=== PATIENT | female | born 1940 | race Caucasian/White ===

== ENCOUNTER → 2017-09-15 10:28 | Outpatient (CLI) | payer MEDICARE, OTHER, SELFPAY ==
[2017-09-15 10:47] VITALS: BP 138/68; PULSE 53; RESP 18; TEMP 36.6; O2SAT 97
[2017-09-15 11:47] LABS: Absolute Lymphocyte Count 1.59 X10^3/ul (0.83-4.51); Absolute Neutrophil Count 5.4 X10^3/uL (2.0-7.7); Basophil% 0.4 % (0-1); Eosinophil# 0.13 X10^3/uL; Eosinophils% 1.7 % (0-5); Hematocrit 37.9 % (37-47); Hemoglobin 12.6 g/dl (12.0-15.0); Lymphocyte # 1.59 X10^3/ul (4.0); Lymphocyte % 20.5 % (19-41); Mean Corp Hgb Conc 33.2 g/gl (32-36); Mean Corpuscular Hgb 32.1 pg (27.0-32.0); Mean Corpuscular Volume 96.4 fL (81-99); Mean Platelet Vol. 9.4 fl (6.2-12.0); Monocyte# 0.63 X10^3/uL; Monocyte% 8.1 % (0-10); Neutrophil # 5.36 X10^3/uL (2.7-7.7); Neutrophil % 69.2 % (47-70); POSITIVE COUNT NO; POSITIVE DIFFERENTIAL NO; POSITIVE MORPHOLOGY NO; Platelet Count 253 K/mm3 (150-450); RBC Distribution Width CV 14.5 % (11.6-14.6); RBC Distribution Width SD 48.5 fl (35.1-43.9); Red Blood Count 3.93 M/mm3 (4.2-5.4); White Blood Count 7.8 K/mm3 (4.4-11.0)
[2017-09-15 11:48] LABS: Basophil# 0.03 X10^3/uL
[2017-09-15 12:21] LABS: ALB/GLOB Ratio 0.9 RATIO (0.9-2.4); AST(SGOT) 24 U/L (15-37); Alanine Aminotransfer ALT/SGPT 23 U/L (12-78); Albumin, Serum 3.1 g/dL (3.4-5.0); Alkaline Phosphatase 68 U/L (45-117); Anion Gap 7 (5-15); BUN 11 mg/dL (7-18); BUN/Creat Ratio 15.6 RATIO (10-20); Calcium,Total 8.7 mg/dL (8.5-10.1); Chloride 103 mmol/L (98-107); EST Glomerular Filtration Rate 86 mL/min (>60); Est Glom Filt Rate - Afr Amer 104 mL/min (>60); Globulin 3.4 g/dL (2.2-4.2); Glucose 79 mg/dL (70-110); Potassium 3.9 mmol/L (3.5-5.1); Protein, Total 6.5 g/dL (6.4-8.2); Sodium Level 138 mmol/L (136-145)
== END ==
PROVIDERS: Family Provider Internal Medicine; PCP Internal Medicine; Visit Provider Internal Medicine Rheumatology
DX: M06.9 Rheumatoid arthritis, unspecified (principal)
CPT/HCPCS: 96365; 80053; 85025; A4216; J0129

== ENCOUNTER → 2017-11-20 12:30 | Outpatient (CLI) | payer MEDICARE, OTHER, SELFPAY ==
[2017-11-20 12:33] VITALS: BP 160/59; PULSE 55; RESP 16; TEMP 36.7; O2SAT 98; BMI 22.3
== END ==
PROVIDERS: Family Provider Internal Medicine; PCP Internal Medicine; Visit Provider Internal Medicine Rheumatology
DX: M06.9 Rheumatoid arthritis, unspecified (principal)
CPT/HCPCS: 96365; J7050; A4216; J0129

== ENCOUNTER → 2017-12-25 12:26 | Outpatient (CLI) | payer MEDICARE, OTHER, SELFPAY ==
[2017-08-14 12:36] VITALS: BP 148/68
[2017-11-20 12:33] VITALS: BP 160/59; BMI 22.3
[2017-12-25 12:43] VITALS: BP 145/68; PULSE 56; RESP 56; TEMP 36.9; O2SAT 98; BMI 21.9
[2017-12-25 12:58] LABS: Absolute Lymphocyte Count 2.42 X10^3/ul (0.83-4.51); Absolute Neutrophil Count 5.8 X10^3/uL (2.0-7.7); Basophil# 0.03 X10^3/uL; Basophil% 0.3 % (0-1); Eosinophil# 0.15 X10^3/uL; Eosinophils% 1.7 % (0-5); Hematocrit 38.8 % (37-47); Hemoglobin 12.7 g/dl (12.0-15.0); Lymphocyte # 2.42 X10^3/ul (4.0); Lymphocyte % 26.7 % (19-41); Mean Corp Hgb Conc 32.7 g/gl (32-36); Mean Corpuscular Hgb 31.4 pg (27.0-32.0); Mean Platelet Vol. 9.1 fl (6.2-12.0); Monocyte% 7.7 % (0-10); Neutrophil # 5.75 X10^3/uL (2.7-7.7); Neutrophil % 63.4 % (47-70); Platelet Count 264 K/mm3 (150-450); RBC Distribution Width SD 49.2 fl (35.1-43.9); Red Blood Count 4.04 M/mm3 (4.2-5.4); White Blood Count 9.1 K/mm3 (4.4-11.0)
[2017-12-25 13:02] LABS: POSITIVE COUNT NO; POSITIVE DIFFERENTIAL NO; POSITIVE MORPHOLOGY NO
[2017-12-25 13:31] LABS: ALB/GLOB Ratio 0.9 RATIO (0.9-2.4); AST(SGOT) 26 U/L (15-37); Alanine Aminotransfer ALT/SGPT 29 U/L (13-56); Albumin, Serum 3.2 g/dL (3.2-5.0); Alkaline Phosphatase 80 U/L (45-117); Anion Gap 8 (5-15); BUN 11 mg/dL (7-18); BUN/Creat Ratio 13.7 RATIO (10-20); Calcium,Total 8.6 mg/dL (8.5-10.1); Chloride 100 mmol/L (98-107); EST Glomerular Filtration Rate 74 mL/min (>60); Est Glom Filt Rate - Afr Amer 89 mL/min (>60); Estimated Creatinine Clearance 52.47 ml/min; Globulin 3.5 g/dL (2.2-4.2); Glucose 94 mg/dL (74-106); Potassium 4.1 mmol/L (3.5-5.1); Protein, Total 6.7 g/dL (6.4-8.2); Sodium Level 135 mmol/L (136-145)
== END ==
PROVIDERS: Family Provider Internal Medicine; PCP Internal Medicine; Visit Provider Internal Medicine Rheumatology
DX: M05.70 Rheumatoid arthritis with rheumatoid factor of unspecified site without organ or systems involvement (principal); Z79.899 Other long term (current) drug therapy; M17.0 Bilateral primary osteoarthritis of knee; K50.90 Crohn's disease, unspecified, without complications
CPT/HCPCS: 96365; 80053; 85025; J7050; A4216; J0129

== ENCOUNTER → 2018-01-29 12:13 | Outpatient (CLI) | payer MEDICARE, OTHER, SELFPAY ==
[2018-01-29 12:20] VITALS: BP 125/71; PULSE 58; RESP 16; TEMP 36.7; O2SAT 96; BMI 22.3
== END ==
PROVIDERS: Family Provider Internal Medicine; PCP Internal Medicine; Visit Provider Internal Medicine Rheumatology
DX: M06.9 Rheumatoid arthritis, unspecified (principal)
CPT/HCPCS: 96365; J7050; A4216; J0129

== ENCOUNTER → 2018-03-05 12:18 | Outpatient (CLI) | payer MEDICARE, OTHER, SELFPAY ==
[2018-03-05 12:21] VITALS: BP 139/67; PULSE 57; RESP 16; TEMP 36.4; O2SAT 97; BMI 22.3
== END ==
PROVIDERS: Family Provider Internal Medicine; PCP Internal Medicine; Visit Provider Internal Medicine Rheumatology
DX: M06.9 Rheumatoid arthritis, unspecified (principal)
CPT/HCPCS: 96365; J7050; A4216; J0129

== ENCOUNTER → 2018-04-09 12:19 | Outpatient (CLI) | payer MEDICARE, OTHER, SELFPAY ==
[2018-04-09 12:40] VITALS: BP 127/55; PULSE 55; RESP 16; TEMP 36.6; O2SAT 98
[2018-04-09 13:08] LABS: Absolute Lymphocyte Count 2.42 X10^3/ul (0.83-4.51); Absolute Neutrophil Count 4.9 X10^3/uL (2.0-7.7); Basophil# 0.02 X10^3/uL; Basophil% 0.2 % (0-1); Eosinophil# 0.13 X10^3/uL; Eosinophils% 1.6 % (0-5); Hematocrit 38.3 % (37-47); Hemoglobin 12.8 g/dl (12.0-15.0); Lymphocyte # 2.42 X10^3/ul (4.0); Mean Corp Hgb Conc 33.4 g/gl (32-36); Mean Corpuscular Hgb 31.9 pg (27.0-32.0); Mean Corpuscular Volume 95.5 fL (81-99); Mean Platelet Vol. 9.2 fl (6.2-12.0); Monocyte# 0.55 X10^3/uL; Monocyte% 6.8 % (0-10); Neutrophil # 4.94 X10^3/uL (2.7-7.7); Neutrophil % 61.2 % (47-70); Platelet Count 291 K/mm3 (150-450); RBC Distribution Width CV 13.9 % (11.6-14.6); Red Blood Count 4.01 M/mm3 (4.2-5.4); White Blood Count 8.1 K/mm3 (4.4-11.0)
[2018-04-09 13:09] LABS: POSITIVE COUNT NO; POSITIVE DIFFERENTIAL NO; POSITIVE MORPHOLOGY NO
[2018-04-09 13:36] LABS: ALB/GLOB Ratio 0.9 RATIO (0.9-2.4); AST(SGOT) 21 U/L (15-37); Alanine Aminotransfer ALT/SGPT 24 U/L (13-56); Albumin, Serum 3.2 g/dL (3.2-5.0); Alkaline Phosphatase 66 U/L (45-117); Anion Gap 8 (5-15); BUN 12 mg/dL (7-18); BUN/Creat Ratio 13.6 RATIO (10-20); Calcium,Total 8.7 mg/dL (8.5-10.1); Chloride 98 mmol/L (98-107); Creatinine, Serum 0.88 mg/dL (0.55-1.02); EST Glomerular Filtration Rate 66 mL/min (>60); Est Glom Filt Rate - Afr Amer 80 mL/min (>60); Globulin 3.6 g/dL (2.2-4.2); Glucose 91 mg/dL (74-106); Potassium 3.8 mmol/L (3.5-5.1); Protein, Total 6.8 g/dL (6.4-8.2); Sodium Level 134 mmol/L (136-145)
== END ==
PROVIDERS: Family Provider Internal Medicine; PCP Internal Medicine; Visit Provider Internal Medicine Rheumatology
DX: M05.70 Rheumatoid arthritis with rheumatoid factor of unspecified site without organ or systems involvement (principal); Z79.899 Other long term (current) drug therapy; M17.0 Bilateral primary osteoarthritis of knee; K50.90 Crohn's disease, unspecified, without complications
CPT/HCPCS: 80053; 85025; 96413; J7050; J0129

== ENCOUNTER → 2018-05-11 10:31 | Outpatient (CLI) | payer MEDICARE, OTHER, SELFPAY ==
[2018-05-11 10:44] VITALS: BP 130/76; PULSE 58; RESP 16; TEMP 36.7; O2SAT 98; BMI 22.3
== END ==
PROVIDERS: Family Provider Internal Medicine; PCP Internal Medicine; Visit Provider Internal Medicine Rheumatology
DX: M06.9 Rheumatoid arthritis, unspecified (principal)
CPT/HCPCS: 96413; J7050; A4216; J0129

== ENCOUNTER → 2018-06-11 12:25 | Outpatient (CLI) | payer MEDICARE, OTHER, SELFPAY ==
[2018-06-11 12:46] VITALS: BP 131/64; PULSE 57; RESP 16; TEMP 36.6; O2SAT 97; BMI 22.3
== END ==
PROVIDERS: Family Provider Internal Medicine; PCP Internal Medicine; Visit Provider Internal Medicine Rheumatology
DX: M06.9 Rheumatoid arthritis, unspecified (principal)
CPT/HCPCS: 96413; J7050; A4216; J0129

== ENCOUNTER → 2018-07-16 12:22 | Outpatient (CLI) | payer MEDICARE, OTHER, SELFPAY ==
[2018-07-16 12:47] VITALS: BP 135/70; PULSE 57; RESP 18; TEMP 36.7; O2SAT 96; BMI 22.3
[2018-07-16 12:58] LABS: Absolute Lymphocyte Count 2.37 X10^3/ul (0.83-4.51); Absolute Neutrophil Count 5.8 X10^3/uL (2.0-7.7); Basophil# 0.02 X10^3/uL; Basophil% 0.2 % (0-1); Eosinophil# 0.17 X10^3/uL; Eosinophils% 1.9 % (0-5); Hematocrit 35.9 % (37-47); Hemoglobin 11.9 g/dl (12.0-15.0); Lymphocyte # 2.37 X10^3/ul (4.0); Lymphocyte % 26.8 % (19-41); Mean Corp Hgb Conc 33.1 g/gl (32-36); Mean Corpuscular Hgb 31.7 pg (27.0-32.0); Mean Corpuscular Volume 95.7 fL (81-99); Mean Platelet Vol. 8.9 fl (6.2-12.0); Monocyte# 0.43 X10^3/uL; Monocyte% 4.9 % (0-10); Neutrophil # 5.82 X10^3/uL (2.7-7.7); Platelet Count 313 K/mm3 (150-450); RBC Distribution Width CV 13.6 % (11.6-14.6); RBC Distribution Width SD 45.3 fl (35.1-43.9); Red Blood Count 3.75 M/mm3 (4.2-5.4); White Blood Count 8.8 K/mm3 (4.4-11.0)
[2018-07-16 13:01] LABS: POSITIVE COUNT NO; POSITIVE DIFFERENTIAL NO; POSITIVE MORPHOLOGY NO
[2018-07-16 13:33] LABS: ALB/GLOB Ratio 0.8 RATIO (0.9-2.4); AST(SGOT) 21 U/L (15-37); Alanine Aminotransfer ALT/SGPT 20 U/L (13-56); Alkaline Phosphatase 84 U/L (45-117); Anion Gap 6 (5-15); BUN 10 mg/dL (7-18); BUN/Creat Ratio 12.9 RATIO (10-20); Calcium,Total 8.5 mg/dL (8.5-10.1); Chloride 99 mmol/L (98-107); Creatinine, Serum 0.78 mg/dL (0.55-1.02); EST Glomerular Filtration Rate 77 mL/min (>60); Est Glom Filt Rate - Afr Amer 93 mL/min (>60); Estimated Creatinine Clearance 41.33 ml/min; Globulin 3.6 g/dL (2.2-4.2); Glucose 133 mg/dL (74-106); Potassium 4.1 mmol/L (3.5-5.1); Protein, Total 6.6 g/dL (6.4-8.2); Sodium Level 133 mmol/L (136-145)
== END ==
PROVIDERS: Internal Medicine Rheumatology; Family Provider Internal Medicine; PCP Internal Medicine; Visit Provider Internal Medicine
DX: M05.70 Rheumatoid arthritis with rheumatoid factor of unspecified site without organ or systems involvement (principal); Z79.899 Other long term (current) drug therapy; M17.0 Bilateral primary osteoarthritis of knee; K50.90 Crohn's disease, unspecified, without complications
CPT/HCPCS: 80053; 85025; 96413; J7050; A4216; J0129

== ENCOUNTER → 2018-07-17 13:16 | Outpatient (CLI) | payer MEDICARE, OTHER, SELFPAY ==
--- NOTE | 2018-07-17 13:18 | RAD_ITS ---
STUDY: X-RAY - CERVICAL SPINE REASON FOR EXAM: Female, 78 years old. Neck pain one week TECHNIQUE: 3 view(s) of the cervical spine were obtained. COMPARISON: None FINDINGS: There are degenerative changes of the anterior atlantoaxial articulation. Normal odontoid process. There is straightening of the normal cervical lordosis. There is multi-level endplate spondylosis. There is multi-level degenerative disc disease with multilevel disc space narrowing. Normal visualized intervertebral neuroforamina. The soft tissue structures are unremarkable. RAD/Cerv Spine 2 or 3 Views IMPRESSION: Multilevel degenerative disc disease. No visualized evidence of acute loss of height or alignment. Electronically Signed: Nafisa Lovett MD at 16:03 EDT Tel , Service support ,
== END ==
PROVIDERS: Family Provider Internal Medicine; PCP Internal Medicine; Referring Provider Internal Medicine; Visit Provider Internal Medicine
DX: M54.12 Radiculopathy, cervical region (principal)
CPT/HCPCS: 72040

== ENCOUNTER 2018-07-23 13:49 | Outpatient (RCR) | payer MEDICARE, OTHER, SELFPAY ==
--- NOTE | 2018-07-23 16:21 | HP.PTEVAL_ITS ---
Patient's Visit Information TRES RAMIRES is a 78 year old F referred to Physical Therapy by Sade Matthews with a diagnosis of Neck pain. Date of Evaluation: 07/23/18 Physical Therapist: Lesli Andrews - Visit Plan Plan: D/C pt. to [facility]. - Subjective Subjective: Pt. was going to cancel because feeling better but radiographs showing OA and degenerative changes. Want to get some advice on exercises. Couple weeks ago woke up with stiff shoulder/neck R side then L then middle, felt like needed massage. Feeling better now. No pain currently. Within last week no pain, just a little discomfort between shoulder blades when woke up and continued throughout day; heat helped a little bit. Lasted about 5 days. Nothing aggrevates pain. No numbness/tingling. No troubles at home with ADL. No losses of balance. No RÍOS. No changes in vision or dizziness. Trouble rel axing and falling asleep, unrelated to neck. Not waking up due to pain. When had neck pain trouble rotating neck while driving but, no issue now. No activities cannot do. Driving no problem. No previous injury to neck or shoulders. RA, HTN, high cholesterol. Taking methotrexate and infusions every month for RA, folic acid, metropolo and altase. RA under control with medications. Looking for exercises to maintain strength. Very active, volunteering at [employer]. - Objective Gait: WFL. Posture: rounded shoulders, FHP, sits with increased trunk flexion. Dermatomes: UE intact bilat. Myotomes: UE 5/5 bilat. ROM: Cervical WFL; slight discomfort with cervical flex., shoulder, elbow, wrist WFL. Palpation: no abnormalities of neck/shoulder compared bilat. - Goals Goal 1:: Pt. will be I with HEP and progressions. Goal Time Frame: Goal met - Rehabilitation Potential Physical Therapy Diagnosis: Pt. presents with good mobility. Neck and shoulder muscular imbalance along with poor posture resulting in intermittent cervical pain. Rehabilitation Potential: Excellent - Anticipated Interventions Patient/Client Instruction: Educate patient on: Condition, Benefits of Fitness Program For the Purpose of:: To improve muscle performance and motor function, To prevent re-injury Therapeutic Exercise to Include: Strength training, Postural training For the Purpose of:: To improve muscle performance and motor function, To prevent re-injury TENS: Yes Cryotherapy (ice pack, ice massage): Yes Thermo therapy (hot pack): Yes Thank you for the opportunity to evaluate your patient. For Medicare and Medicare HMO plans, please review the plan of care and approve it. It will need to be FAXED BACK to us at [phone] for Medicare purposes. Please let me know if there are questions or concerns regarding this plan of care. Physician Signature: Date:
== END 2018-07-23 19:00 | disposition home or self-care (01) ==
LOC: PT 13:49
PROVIDERS: Family Provider Internal Medicine; PCP Internal Medicine; Referring Provider Internal Medicine; Visit Provider Internal Medicine
DX: M54.12 Radiculopathy, cervical region (principal); M54.2 Cervicalgia
CPT/HCPCS: 97110; 97161

== ENCOUNTER → 2018-08-20 12:42 | Outpatient (CLI) | payer MEDICARE, OTHER, SELFPAY ==
[2018-08-20 12:59] VITALS: BP 145/68; PULSE 61; RESP 16; TEMP 36.4; O2SAT 98
== END ==
PROVIDERS: Family Provider Internal Medicine; PCP Internal Medicine; Referring Provider Internal Medicine Rheumatology; Visit Provider Internal Medicine Rheumatology
DX: M06.9 Rheumatoid arthritis, unspecified (principal)
CPT/HCPCS: 96413; J7050; A4216; J0129

== ENCOUNTER → 2018-09-10 14:23 | Outpatient (CLI) | payer MEDICARE, OTHER, SELFPAY ==
[2018-07-16 12:47] VITALS: BMI 22.3
--- NOTE | 2018-09-10 14:27 | BI_ITS ---
MAMMOGRAPHY - BILATERAL SCREENING REASON FOR EXAM: Female, 78 years old. Routine annual screening examination. PERTINENT HISTORY: Non-contributory. TECHNIQUE: Digital bilateral breast leslie (3D mammographic acquisition) in the CC and MLO projections. 2-D mediolateral oblique (MLO) and craniocaudad (CC) views of both breasts were obtained. CAD: Full Field Digital Mammography with Computer Added Detection was performed. COMPARISON: Comparison is made with prior study July 24, 2015 and July 03, 2009. FINDINGS: Breast Composition: There are scattered areas of fibroglandular density. There are no dominant masses or suspicious calcifications. No other significant abnormalities are identified. There has been no significant change since the prior study. BI/SCREENING MAMM (CAD), BILAT IMPRESSION: Stable bilateral screening mammogram. Yearly follow-up mammogram recommended. (A) ASSESSMENT CATEGORY: BIRADS Category 1: Negative. A letter regarding these results will be sent to the patient by the facility within 30 days. Approximately 10% of breast cancers are not detected by mammography. A normal mammogram should not delay biopsy of a clinically suspicious abnormality. [id number] Electronically Signed: Bartolo Knight MD at 15:27 EST Tel [phone], Service support ,
--- NOTE | 2018-09-10 14:30 | BD_ITS ---
STUDY: DUAL ENERGY X-RAY ABSORPTIOMETRY / DXA REASON FOR EXAM: Female, 78 years old. The patient is postmenopausal. Loss of height. TECHNIQUE: Bone Mineral Density (BMD) measurements of lumbar spine and bilateral hips were obtained. COMPARISON: Comparison is made with prior examination dated May 05, 2012. FINDINGS: Lumbar Spine (L1-L4): g/cm2 (0.978) / T-score (-1.7) / Z-score (0.1) Findings are suggestive of osteopenia with a moderate fracture risk. Left Femur Total: g/cm2 (0.679) / T-score (-2.6) / Z-score (-0.8) Left Femoral Neck: g/cm2 (0.771) / T-score (-1.9) / Z-score (0.1) Right Femur Total: g/cm2 (0.680) / T-score (-2.6) / Z-score (-0.8) Right Femoral Neck: g/cm2 (0.802) / T-score (-1.7) / Z-score (0.3) The T-Scores on the most recent prior examination were: Lumbar Spine (L1-L4): There has been improvement of bone density since the previous examination. Left Femur Total: which represents a worsening of 10.7%. Right Femur Total: which represents a worsening of 7.9%. BD/Dexa Bone Density Study IMPRESSION: The patient is considered osteoporotic as outlined below according to World Kirby Organization (WHO) criteria with a high fracture risk. There has been worsening of bone density since the previous examination. Reference Information: The T-score is the number of standard deviations above or below the standard which is normal for young adults at their peak bone mineral density. The World Health Organization (WHO) interprets the T-scores as follows: Above -1 Normal bone density Between -1 and -2.5 Osteopenia Equal to / or below -2.5 Osteoporosis As a practical clinical guideline, osteopenia may be graded as follows: Mild -1 through -1.5 Moderate -1.6 through -2.0 Severe -2.1 through -2.4 The Z-score is the number of standard deviations above or below age-matched controls. A Z-score of less than -1.5 would be considered abnormal. References: 1. NIH Osteoporosis and Related Bone Diseases http://www.osteo.org 2. International Society for Clinical Densitometry http://www.iscd.org 3. National Osteoporosis Foundation http://www.nof.org Electronically Signed: Bartolo Knight MD at 15:56 EST Tel [phone], Service support ,
--- OUTSIDE RECORDS SUMMARY | 2018-11-05 19:57 | XMS RPT_ITS | Continuity of Care Document ---
:1940 Author Organization [facility] Address [address] [facility] [address] [place] [address] Phone Care Team Providers Name Role Phone Sade Lambert DO Unavailable [facility], [facility] Unavailable Dr. Michael Wesley Unavailable MARCIA Richardson Unavailable Unavailable long, isha Unavailable Unavailable Unavailable Unavailable Problems Name Dates Details Acne rosacea, papular type (L71.9, 695.3) Status: Active Benign essential hypertension (I10, 401.1) Status: Active BMI 22.0-22.9, adult (Z68.22, V85.1) Status: Active Breast cancer screening (Z12.39, V76.10) Status: Active Cervical radiculopathy (M54.12, 723.4) Status: Active Colon cancer screening (Renamed from Encounter for screening for malignant neoplasm of colon) (Z12.11, V76.51) Status: Active Colonoscopy Comments: 08-20-07 Status: Active Crohn's disease, unspecified, without complications (K50.90, 555.9) Status: Active Elevated blood protein (E88.09, 273.8) Status: Active Encounter for Medicare annual wellness exam (Z00.00, V70.0) Status: Active Encounter for screening mammogram for breast cancer (Renamed from Encounter for screening mammogram for malignant neoplasm of breast) (Z12.31, V76.12) Status: Active Hypercholesterolemia (E78.00, 272.0) Status: Active Hypertension (I10, 401.9) Status: Active Hysterectomy, Total Comments: Secondary to prolapsed bladder Status: Active Influenza vaccination declined (Renamed from Refused influenza vaccine) (Z28.21, V64.06) Status: Active Mitral valve prolapse (I34.1, 424.0) Comments: stable Status: Active Need for prophylactic vaccination and inoculation against influenza (Renamed from Need for immunization against influenza) (Z23, V04.81) Status: Active Non-smoker (Z78.9, V49.89) Status: Active Osteoporosis (M81.0, 733.00) Comments: managed by dr diaz Status: Active Postmenopausal (Renamed from Postmenopausal status) (Z78.0, V49.81) Status: Active Rheumatoid arthritis (M06.9, 714.0) Status: Active Rosacea (L71.9, 695.3) Comments: Acne Status: Active Screening for colon cancer (Z12.11, V76.51) Status: Active Unspecified Diagnosis Status: Active Vitamin D deficiency, unspecified (E55.9, 268.9) Status: Active Medications Name Dates Details Altace 10 MG Oral Capsule 1 Capsule BID for 90 days Quantity: 180 {Capsule} Refills: 3 Ordered:17-Jul-2018 Fallon Lambert DO, DO, Kathleen Start : 17-Jul-2018 Active Atorvastatin Calcium 10 MG Oral Tablet 1 (one) Tablet qd for 90 days Quantity: 90 {Tablet} Refills: 3 Ordered:17-Jul-2018 Fallon Lambert DO, DO, Kathleen Start : 17-Jul-2018 Active FOLIC ACID, 1MG (Oral Tablet) 1 Tablet QD for 0 days Quantity: 90 {Tablet} Refills: 3 Ordered:31-Mar-2008 Renita Richardson LPN Start : 31-Mar-2008 Active METHOTREXATE, 2.5MG (PO Tablet) 3 Q week for 0 days Refills: 0 Ordered:25-Apr-2011 Renita Richardson MetroNIDAZOLE 1 % External Gel apply topically Application apply to facial cheeks bid for 0 days Quantity: 15 {Gram} Refills: 3 Ordered:04-Aug-2018 Fallon Lambert DO, DO, Kathleen Start : 04-Aug-2018 Active MULTIVITAMIN (PO Liquid) for 0 days Refills: 0 Ordered:17-Jul-2018 Renita Richardson Toprol XL 100 MG Oral Tablet Extended Release 24 Hour 1 Tablet ER 24HR QD for 90 days Quantity: 90 {Tablet} Refills: 3 Ordered:17-Jul-2018 Fallon Lambert DO, DO, Kathleen Start : 17-Jul-2018 Active ANUCORT-HC, 25MG (Rectal Suppository) 1 Suppository QD for 0 days Refills: 0 Ordered:15-Sep-2006 Renita Richardson LPN Start : 15-Sep-2006 End : 26-May-2009 Inactive ASPIRIN LOW DOSE, 81MG (Oral Tablet) 1 QD for 0 days Refills: 0 Ordered:25-Apr-2011 Renita Richardson LPN End : 25-Apr-2011 Inactive Doxycycline Hyclate 100 MG Oral Tablet 1 (one) Tablet bid for 10days then qd for 30 days then qd prn for 0 days Quantity: 94 {Tablet} Refills: 2 Ordered:04-Jun-2017 Renita Richardson LPN Start : 07-Jun-2016 End : 04-Jun-2017 Inactive Doxycycline Hyclate 100 MG Oral Tablet 1 (one) Tablet bid for 10days then qd for 30 days then qd prn for 0 days Quantity: 60 {Tablet} Refills: 0 Ordered:04-Jun-2017 Renita Richardson LPN Start : 07-Jun-2016 End : 04-Jun-2017 Inactive ENTOCORT EC, 3MG (Oral Capsule Extended Release 24 Hour) 3 (three) Tablet(s) qd for 30 days Refills: 0 Ordered:07-Aug-2011 Fallon Lambert DO, DO, Kathleen Start : 25-Apr-2011 End : 25-May-2011 Inactive HUMIRA, 40MG/0.8ML (Subcutaneous Kit) Not sure Not sure for 0 days Refills: 0 Ordered:31-Mar-2008 Renita Richardson LPN End : 31-Mar-2008 Inactive Niacin ER 500 MG Oral Tablet Extended Release 1 (one) Tablet ER qd for 30 days Quantity: 30 {Tablet} Refills: 5 Ordered:04-Jun-2017 Renita Richardson LPN Start : 10-Jul-2016 End : 04-Jun-2017 Inactive NIASPAN, 500MG (Oral Tablet Extended Release) 1 (one) Tablet ER QHS / HS for 0 days Quantity: 90 {Tablet_ER} Refills: 3 Ordered:27-Oct-2014 Renita Richardson LPN Start : 21-Apr-2014 End : 27-Oct-2014 Inactive ORENCIA, 250MG (Intravenous Solution Reconstituted) 1 For Solution q 4 weeks for 1 days Refills: 0 Ordered:29-Mar-2013 Fallon Lambert DO, DO, Kathleen Start : 29-Mar-2013 End : 30-Mar-2013 Inactive Oscal 500/200 D-3 500-200 MG-UNIT Oral Tablet 1 BID for 0 days Refills: 0 Ordered:17-Jul-2018 Renita Richardson LPN End : 17-Jul-2018 Inactive PREMARIN, 0.625MG/GM (Vaginal Cream) Not sure Cream Not sure for 0 days Refills: 0 Ordered:25-Apr-2011 Renita Richardson LPN Start : 15-Sep-2006 End : 25-Apr-2011 Inactive REMICADE, 100MG (Intravenous Solution Reconstituted) EVERY 5 WEEKS for 0 days Refills: 0 Ordered:26-May-2009 Renita Richardson LPN End : 26-May-2009 Inactive Simvastatin 10 MG Oral Tablet 1 (one) Tablet daily for 30 days Quantity: 30 {Tablet} Refills: 5 Ordered:04-Jun-2017 Renita Richardson LPN Start : 10-Jul-2016 End : 04-Jun-2017 Inactive VITAMIN C, 500MG (Oral Tablet) 1 QD for 0 days Refills: 0 Ordered:26-May-2009 Renita Richardson LPN End : 26-May-2009 Inactive VITAMIN E, 200UNIT (Oral Capsule) 2 QD for 0 days Refills: 0 Ordered:26-May-2009 Renita Richardson LPN End : 26-May-2009 Inactive CLONIDINE HCL, 0.1MG (Oral Tablet) 1 Tablet QD for 0 days Refills: 0 Ordered:03-Oct-2006 Fallon Lambert DO, DO, Kathleen Start : 15-Sep-2006 End : 03-Oct-2006 Discontinued Comments:SAW NO DIFFERENCE FOSAMAX, 70MG (Oral Tablet) 1 Tablet Q Week for 0 days Quantity: 12 {Tablet} Refills: 3 Ordered:29-Mar-2013 Fallon Lambert DO, DO, Kathleen Start : 29-Mar-2013 End : 29-Mar-2013 Discontinued Comments:pt has been on for years HYDROCHLOROTHIAZIDE, 25MG (Oral Tablet) 1 (one) Tablet Daily for 0 days Refills: 0 Ordered:03-Oct-2006 Fallon Lambert DO, DO, Kathleen Start : 03-Oct-2006 End : 03-Oct-2006 Discontinued Comments:SAW NO DIFFERENCE IN BP LIPITOR, 10MG (Oral Tablet) 1/2 Tablet QD for 0 days Refills: 0 Ordered:31-Mar-2008 Fallon Lambert DO, DO, Kathleen Start : 15-Sep-2006 End : 31-Mar-2008 Discontinued Allergies and Adverse Reactions Name Dates Details No Known Allergies (Allergy) Onset: 07-Jun-2015 Status: Active No Known Drug Allergies (Allergy) Status: Active Past Medical History Name Dates Details Screening for malignant neoplasm of cervix (Z12.4, V76.2) Status: Inactive as of 29-Mar-2013 Well woman exam (Z01.419, V72.31) Status: Inactive as of 29-Mar-2009 Procedures Procedure Dates Details TDAP VACCINE >7 IM (47137) Date: 07-Jun-2015 Completed 07-Jun-2015 Comments: GIVEN 06/07/2015 , DELL Date Value Details 23-Jul-2018 Inital Evaluation (1) - PT Result: Comments: See Note; NOTES: [facility] [address] [place] [address] [address] [place], [place] [address] Fax REHABILITATION SERVICES INITIAL EVALUATION MR#: [id number] Acct: [id number] Name: TRES GONZALEZ Rep #: [id number] : 1940 78 From: Lesli Andrews DPT Referring DrStuart: Sade Lambert DO Status: REG RCR Insurance: MEDICARE PART A B [facility] Patient's Visit Information TRES GONZALEZ is a 78 year old F referred to Physical Therapy by Sade Lambert with a diagnosis of Neck pain. Date of Evaluation: 07/23/18 Physical Therapist: Lesli Andrews - Visit Plan Plan: D/C pt. to I HEP. - Subjective Subjective: Pt. was going to cancel because feeling better but radiographs showing OA and degenerative changes. Wa nt to get some advice on exercises. Couple weeks ago woke up with stiff shoulder/neck R side then L then middle, felt like needed massage. Feeling better now. No pain currently. Within last week no pain , just a little discomfort between shoulder blades when woke up and continued throughout day; heat helped a little bit. Lasted about 5 days. Nothing aggrevates pain. No numbness/tingling. No troubles at home with ADL. No losses of balance. No RÍOS. No changes in vision or dizziness. Trouble relaxing and falling asleep, unrelated to neck. Not waking up due to pain. When had neck pain trouble rotating nec k while driving but, no issue now. No activities cannot do. Driving no problem. No previous injury to neck or shoulders. RA, HTN, high cholesterol. Taking methotrexate and infusions every month for RA, folic acid, metropolo and altase. RA under control with medications. Looking for exercises to maintain strength. 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 - Objective Gait: WFL. Posture: rounded shoulders, FHP, sits with increased trunk flexion. Dermatomes: UE intact bilat. Myotomes: UE 5/5 bilat. ROM: Cervical WFL; slight discomfort with cervical flex., shoulder, elbow, wrist WFL. Palpation: no abnormali ties of neck/shoulder compared bilat. - Goals Goal 1:: Pt. will be I with HEP and progressions. Goal Time Frame: Goal met - Rehabilitation Potential Physical Therapy Diagnosis: Pt. presents with good mobility. Neck and shoulder muscular imbalance along with poor posture resulting in intermittent cervical pain. Rehabilitation Potential: Excellent - Anticipated Interventions Patient/Client Instructio n: Educate patient on: Condition, Benefits of Fitness Program For the Purpose of:: To improve muscle performance and motor function, To prevent re-injury Therapeutic Exercise to Include: Strength traini ng, Postural training For the Purpose of:: To improve muscle performance and motor function, To prevent re-injury TENS: Yes Cryotherapy (ice pack, ice massage): Yes Thermo therapy (hot pack): Yes Th ank you for the opportunity to evaluate your patient. For Medicare and Medicare HMO plans, please review the plan of care and approve it. It will need to be FAXED BACK to us at [phone] for Medicar e purposes. Please let me know if there are questions or concerns regarding this plan of care. Physician Signature: Date: <Elect ronically signed by Lesli Andrews DPT> 07/23/18 1621 CC: Sade Lambert DO ELR Signed For Medicare only, by signing this I certify the plan of care. Physicians Signature Date 17-Jul-2018 Cerv Spine 2 or 3 Views Result: Comments: See Note; NOTES: [facility] [address] [place] [address] Cerv Spine 2 or 3 Views MR#: [id number] Acct: [id number] Name: IKEJACKSONTRES L Rep #: [id number] : 1940 F 78 From: Nafisa Lovett MD PCP: Sade Lambert DO Status: REG CLI Study: Cerv Spine 2 or 3 Views Date of Exam: 07/17/18 Exam# [id number] Ordering Dr: Sade Lambert DO STUDY: X-RAY - CERVICAL SPINE REASON FOR EXAM: Female, 78 years old. Neck pain one week TECHNIQUE: 3 view(s) of the cervical spine were obtained. COMPARISON: None FINDINGS: T here are degenerative changes of the anterior atlantoaxial articulation. Normal odontoid process. There is straightening of the normal cervical lordosis. There is multi-level endplate spondylosis. Ther e is multi-level degenerative disc disease with multilevel disc space narrowing. Normal visualized intervertebral neuroforamina. The soft tissue structures are unremarkable. RAD/Cerv Spine 2 or 3 Views IMPRESSION: Multilevel degenerative disc disease. No visualized evidence of acute loss of height or alignment. Electronically Signed: Nafisa patiño MD at 16:03 EDT Tel , Service support , CC: Sade Lambert DO Client Strategist: Signed 11-Jun-2017 Knee 4 or More Views Result: Comments: See Note; NOTES: [facility] [address] [place] [address] Knee 4 or More Views MR#: [id number] Acct: [id number] Name: TRES GONZALEZ Rep #: [id number] : 1940 F 77 From: Rodney Patten MD PCP: Sade Lambert DO Status: REG CLI Study: Knee 4 or More Views Date of Exam: 06/11/17 Exam# [id number] Ordering Dr: Danette Brooks MD STUDY: X-RAY - R IGHT KNEE REASON FOR EXAM: Female, 77 years old. PAIN IN BOTH KNEES FOR MONTHS, WORSE IN LEFT THAN RIGHT. TECHNIQUE: 4 view(s) of the knee. COMPARISON: None. FIND INGS: There is demineralization of the visualized distal femur. There is demineralization of the tibia and fibula. Normal proximal tibiofibular articulation. Normal medial femorotibial compartment. Nor mal lateral femorotibial compartment. Normal patellofemoral articulation. The soft tissue structures are unremarkable. RAD/Knee 4 or More Views IMPRESSION: There is demineralization of the visualized distal femur. There is demineralization of the tibia and fibula Electronically Signed: Rodney Patten MD at 16:45 EDT Tel , Service support , CC: Sade Lambert DO; Danette Brooks MD Client Strategist: Signed 11-Jun-2017 Knee 4 or More Views Result: Comments: See Note; NOTES: [facility] [address] [place] [address] Knee 4 or More Views MR#: [id number] Acct: [id number] Name: TRES GONZALEZ Rep #: [id number] : 1940 F 77 From: Rodney Patten MD PCP: Sade Lambert DO Status: REG CLI Study: Knee 4 or More Views Date of Exam: 06/11/17 Exam# [id number] Ordering Dr: Danette Brooks MD STUDY: X-RAY - L EFT KNEE REASON FOR EXAM: Female, 77 years old. PAIN IN BOTH KNEES FOR MONTHS, WORSE IN LEFT THAN RIGHT. TECHNIQUE: 4 view(s) of the knee. COMPARISON: None. FINDI NGS: There is demineralization of the visualized distal femur. There is demineralization of the tibia and fibula. Normal proximal tibiofibular articulation. Normal medial femorotibial compartment. Norm al lateral femorotibial compartment. Normal patellofemoral articulation. The soft tissue structures are unremarkable. RAD/Knee 4 or More Views I MPRESSION: There is demineralization of the visualized distal femur. There is demineralization of the tibia and fibula Electronically Signed: Rodney Patten MD at 17:58 EDT , Service support , CC: Sade Lambert DO; Danette Brooks MD Client Strategist: Signed 24-Jul-2015 Bilat Scrn Digital AND CAD Result: Comments: See Note; NOTES: [facility] [address] [place] [address] Breast Imaging Report MR#: [id number] Acct: [id number] Name: TRES GONZALEZ Rep #: [id number] : 1940 F 75 From: Bartolo Knight MD PCP: Sade Lambert DO Status: REG CLI Study: Ila Velasquez Digital AND CAD Date of Exam: 07/24/15 Exam# [id number] Ordering Dr: Kiley Lambert DO MAMMOGRAPHY - BILATERAL SCREENING REASON FOR EXAM: Female, 75 years old. Routine annual screening examination. PERTINENT HISTORY: Non- contributory. TECHNIQUE: Digital examination. Mediolateral oblique (MLO) and craniocaudad (CC) views of both breasts were obtained. CAD: CAD was performed on this study. COMPARISON: Comparison is made with prior study dated July 03, 2009. FINDINGS: Breast Composition: There are scattered areas of fibroglandular density. There are no dominant masses or suspicious calcifications. No other signifi cant abnormalities are identified. There has been no significant change since the prior study. IMPRESSION: Stable bilateral screening mammogram. Yearly follow-up recommended. (A) ASSESSMENT CATEGORY: BIRADS Category 1: Negative. A letter regarding these results will be sent to the patient by the facility within 30 days. Approximately 10% of breast cancers are not detected by mammography. A normal mammogram should not delay biopsy of a clinically suspicious abnormality. Electronically Signed: Bartolo Knight MD at 16:14 EDT Tel [phone], Service support [phone], CC: Sade Lambert DO Client Strategist: Signed Immunization Name Dates Details Tdap (7 years and up) on: 07-Jun-2015 Comments: Site: Deltoid (Left) Lot #: [id number] Family History Unknown Family Member Name Dates Details Father Comments: Bone Cancer - at 85 Status: Active Mother Comments: DM, CHF, Kidney failure - at 75 Status: Active Social History Name Dates Details Non Drinker/No Alcohol Use Status: Active Non Smoker/No Tobacco Use Status: Active Tobacco use: Never smoker. Status: Active Smoking Status Name Dates Details Never smoker Vital Signs Date Test Result Details :03 Pulse 49 /min Comments: Pattern: Regular Respiration Rate 18 /min Comments: Pattern: Unlabored O2 SAT 98 % Comments: Room air BP Systolic 128 mm[Hg] Comments: Patient Position: Sitting; Cuff Location: Left Arm; Cuff Size: Standard BP Diastolic 78 mm[Hg] Comments: Patient Position: Sitting; Cuff Location: Left Arm; Cuff Size: Standard Weight 129.5 lb Height 64 in Body Mass Index Calculated 22.23 kg/m2 Body Surface Area Calculated 1.63 m2 :41 Pulse 65 /min Comments: Pattern: Regular Respiration Rate 18 /min Comments: Pattern: Unlabored O2 SAT 96 % Comments: Room air BP Systolic 148 mm[Hg] Comments: Patient Position: Sitting; Cuff Location: Left Arm; Cuff Size: Standard BP Diastolic 88 mm[Hg] Comments: Patient Position: Sitting; Cuff Location: Left Arm; Cuff Size: Standard Weight 129.25 lb Height 64 in Body Mass Index Calculated 22.19 kg/m2 Body Surface Area Calculated 1.62 m2 :55 Pulse 66 /min Comments: Pattern: Regular Respiration Rate 18 /min Comments: Pattern: Unlabored O2 SAT 97 % Comments: Room air BP Systolic 120 mm[Hg] Comments: Patient Position: Sitting; Cuff Location: Left Arm; Cuff Size: Standard BP Diastolic 78 mm[Hg] Comments: Patient Position: Sitting; Cuff Location: Left Arm; Cuff Size: Standard Weight 132.125 lb Height 64 in Body Mass Index Calculated 22.68 kg/m2 Body Surface Area Calculated 1.64 m2 :36 Temperature 98.2 f Comments: Method: Temporal Pulse 56 /min Comments: Pattern: Regular Respiration Rate 16 /min Comments: Pattern: Unlabored O2 SAT 98 % Comments: Room air BP Systolic 140 mm[Hg] Comments: Patient Position: Sitting; Cuff Location: Left Arm; Cuff Size: Standard BP Diastolic 80 mm[Hg] Comments: Patient Position: Sitting; Cuff Location: Left Arm; Cuff Size: Standard Weight 135.375 lb Height 64 in Body Mass Index Calculated 23.24 kg/m2 Body Surface Area Calculated 1.66 m2 :24 Pulse 65 /min Comments: Pattern: Regular Respiration Rate 18 /min Comments: Pattern: Unlabored O2 SAT 98 % Comments: Room air BP Systolic 138 mm[Hg] Comments: Patient Position: Sitting; Cuff Location: Left Arm; Cuff Size: Large BP Diastolic 84 mm[Hg] Comments: Patient Position: Sitting; Cuff Location: Left Arm; Cuff Size: Large Weight 134.375 lb Height 64 in Body Mass Index Calculated 23.07 kg/m2 Body Surface Area Calculated 1.65 m2 :23 Temperature 98.3 f Comments: Method: Oral Pulse 64 /min Comments: Pattern: Regular Respiration Rate 20 /min Comments: Pattern: Unlabored BP Systolic 130 mm[Hg] Comments: Patient Position: Sitting; Cuff Location: Left Arm; Cuff Size: Standard BP Diastolic 62 mm[Hg] Comments: Patient Position: Sitting; Cuff Location: Left Arm; Cuff Size: Standard Weight 138.125 lb Height 64 in Body Mass Index Calculated 23.71 kg/m2 Body Surface Area Calculated 1.67 m2 :52 Pulse 72 /min Comments: Pattern: Regular Respiration Rate 20 /min Comments: Pattern: Unlabored BP Systolic 148 mm[Hg] Comments: Patient Position: Sitting; Cuff Location: Left Arm; Cuff Size: Large BP Diastolic 82 mm[Hg] Comments: Patient Position: Sitting; Cuff Location: Left Arm; Cuff Size: Large Weight 137.1875 lb Height 64 in Body Mass Index Calculated 23.55 kg/m2 Body Surface Area Calculated 1.67 m2 :26 Pulse 64 /min Comments: Pattern: Regular Respiration Rate 20 /min Comments: Pattern: Unlabored BP Systolic 122 mm[Hg] Comments: Patient Position: Sitting; Cuff Location: Left Arm; Cuff Size: Large BP Diastolic 82 mm[Hg] Comments: Patient Position: Sitting; Cuff Location: Left Arm; Cuff Size: Large Weight 133 lb Height 64 in Body Mass Index Calculated 22.83 kg/m2 Body Surface Area Calculated 1.64 m2 Head Circumference 0.00 cm :38 Pulse 60 /min Comments: Pattern: Regular Respiration Rate 20 /min Comments: Pattern: Unlabored BP Systolic 122 mm[Hg] Comments: Patient Position: Sitting; Cuff Location: Left Arm; Cuff Size: Standard BP Diastolic 60 mm[Hg] Comments: Patient Position: Sitting; Cuff Location: Left Arm; Cuff Size: Standard Weight 130.125 lb Height 64 in Body Mass Index Calculated 22.34 kg/m2 Body Surface Area Calculated 1.63 m2 Head Circumference 0.00 cm [id number] Temperature 98.6 f Comments: Method: Oral Pulse 70 /min Comments: Pattern: Regular Respiration Rate 20 /min Comments: Pattern: Unlabored BP Systolic 104 mm[Hg] Comments: Patient Position: Sitting; Cuff Location: Left Arm; Cuff Size: Standard BP Diastolic 76 mm[Hg] Comments: Patient Position: Sitting; Cuff Location: Left Arm; Cuff Size: Standard Weight 140 lb Height 0 in Head Circumference 0.00 cm :18 Temperature 97.5 f Comments: Method: Oral Pulse 72 /min Comments: Pattern: Regular Respiration Rate 13 /min Comments: Pattern: Unlabored BP Systolic 160 mm[Hg] Comments: Patient Position: Sitting; Cuff Location: Left Arm; Cuff Size: Standard BP Diastolic 84 mm[Hg] Comments: Patient Position: Sitting; Cuff Location: Left Arm; Cuff Size: Standard Weight 140.1875 lb Height 64 in Body Mass Index Calculated 24.06 kg/m2 Body Surface Area Calculated 1.68 m2 Head Circumference 0.00 cm Results Date Description Value Details [id number] CBC W/Diff, Automated Comments: [facility] [id number] [place], [address] Absolute Lymph 2.37 {X10_3/ul} (Normal) Range: 0.83-4.51 Absolute Neut 5.8 {X10_3/uL} (Normal) Range: 2.0-7.7 IM GRAN % 0.200 % (Normal) Range: 0.0-0.9 Comments: IG% - Immature Granulocytes (promyelocytes, myelocytes andmetamyelocytes) > 1% indicates that a LEFT SHIFT is Present. BASO% 0.2 % (Normal) Range: 0-1 EO% 1.9 % (Normal) Range: 0-5 MONO% 4.9 % (Normal) Range: 0-10 LY% 26.8 % (Normal) Range: 19-41 NEUT% 66.0 % (Normal) Range: 47-70 MPV 8.9 fL (Normal) Range: 6.2-12.0 PLT 313 K/mm3 (Normal) Range: 150-450 RDW SD 45.3 fL (Abnormal) Range: 35.1-43.9 RDW CV 13.6 % (Normal) Range: 11.6-14.6 MCHC 33.1 {g/gl} (Normal) Range: 32-36 MCH 31.7 pg (Normal) Range: 27.0-32.0 MCV 95.7 fL (Normal) Range: 81-99 HCT 35.9 % (Abnormal) Range: 37-47 HGB 11.9 g/dL (Abnormal) Range: 12.0-15.0 RBC 3.75 {M/mm3} (Abnormal) Range: 4.2-5.4 WBC 8.8 K/mm3 (Normal) Range: 4.4-11.0 7-[id number]:45 Comprehensive Metabolic Profil Comments: [facility] [id number] [place], [place], [address] GAP 6 (Normal) Range: 5-15 CO2 28.0 mmol/L (Normal) Range: 21.0-32.0 CL 99 mmol/L (Normal) Range: 98-107 K 4.1 mmol/L (Normal) Range: 3.5-5.1 NA 133 mmol/L (Abnormal) Range: 136-145 T BILI 0.40 mg/dL (Normal) Range: 0.20-1.00 ALT 20 U/L (Normal) Range: 13-56 ALK P 84 U/L (Normal) Range: 45-117 AST 21 U/L (Normal) Range: 15-37 CA 8.5 mg/dL (Normal) Range: 8.5-10.1 A/G 0.8 {RATIO} (Abnormal) Range: 0.9-2.4 GLOB 3.6 g/dL (Normal) Range: 2.2-4.2 ALB 3.0 g/dL (Abnormal) Range: 3.2-5.0 T PROT 6.6 g/dL (Normal) Range: 6.4-8.2 BUN/CRE 12.9 {RATIO} (Normal) Range: 10-20 Estimated CRCL 41.33 ml/min (Normal) EST GFR - AA 93 mL/min (Normal) Comments: GFR Calc EST GFR 77 mL/min (Normal) Comments: Non- GFR Calc CREAT,SERUM 0.78 mg/dL (Normal) Range: 0.55-1.02 Comments: The validity of the calculated GFR AND GFRAA in patients over70 years has not been determined. Clinical correlation isessential. BUN 10 mg/dL (Normal) Range: 7-18 GLU 133 mg/dL (Abnormal) Range: 74-106 Comments: Fasting Glucose result greater than or equal to 126 mg/dLsuggests DIABETES MELLITUS per A.D.A. criteria.Please note revised GLUCOSE reference range hnywdosuz58/02/2018. 60-Iqu-[id number]:55 CBC W/Diff, Automated Comments: [facility] [id number] [place], [address] Absolute Lymph 2.42 {X10_3/ul} (Normal) Range: 0.83-4.51 Absolute Neut 4.9 {X10_3/uL} (Normal) Range: 2.0-7.7 IM GRAN % 0.200 % (Normal) Range: 0.0-0.9 Comments: IG% - Immature Granulocytes (promyelocytes, myelocytes andmetamyelocytes) > 1% indicates that a LEFT SHIFT is Present. BASO% 0.2 % (Normal) Range: 0-1 EO% 1.6 % (Normal) Range: 0-5 MONO% 6.8 % (Normal) Range: 0-10 LY% 30.0 % (Normal) Range: 19-41 NEUT% 61.2 % (Normal) Range: 47-70 MPV 9.2 fL (Normal) Range: 6.2-12.0 PLT 291 K/mm3 (Normal) Range: 150-450 RDW SD 47.0 fL (Abnormal) Range: 35.1-43.9 RDW CV 13.9 % (Normal) Range: 11.6-14.6 MCHC 33.4 {g/gl} (Normal) Range: 32-36 MCH 31.9 pg (Normal) Range: 27.0-32.0 MCV 95.5 fL (Normal) Range: 81-99 HCT 38.3 % (Normal) Range: 37-47 HGB 12.8 g/dL (Normal) Range: 12.0-15.0 RBC 4.01 {M/mm3} (Abnormal) Range: 4.2-5.4 WBC 8.1 K/mm3 (Normal) Range: 4.4-11.0 [id number]-Xcn-[id number]:55 Comprehensive Metabolic Profil Comments: [facility] [address] [place], [place], [phone] GAP 8 (Normal) Range: 5-15 CO2 28.0 mmol/L (Normal) Range: 21.0-32.0 CL 98 mmol/L (Normal) Range: 98-107 K 3.8 mmol/L (Normal) Range: 3.5-5.1 NA 134 mmol/L (Abnormal) Range: 136-145 T BILI 0.70 mg/dL (Normal) Range: 0.20-1.00 ALT 24 U/L (Normal) Range: 13-56 ALK P 66 U/L (Normal) Range: 45-117 AST 21 U/L (Normal) Range: 15-37 CA 8.7 mg/dL (Normal) Range: 8.5-10.1 A/G 0.9 {RATIO} (Normal) Range: 0.9-2.4 GLOB 3.6 g/dL (Normal) Range: 2.2-4.2 ALB 3.2 g/dL (Normal) Range: 3.2-5.0 T PROT 6.8 g/dL (Normal) Range: 6.4-8.2 BUN/CRE 13.6 {RATIO} (Normal) Range: 10-20 EST GFR - AA 80 mL/min (Normal) Comments: GFR Calc EST GFR 66 mL/min (Normal) Comments: Non- GFR Calc CREAT,SERUM 0.88 mg/dL (Normal) Range: 0.55-1.02 Comments: The validity of the calculated GFR AND GFRAA in patients over70 years has not been determined. Clinical correlation isessential. BUN 12 mg/dL (Normal) Range: 7-18 GLU 91 mg/dL (Normal) Range: 74-106 Comments: Please note revised GLUCOSE reference range voubwjbji99/02/2018. [id number]:50 CBC W/Diff, Automated Comments: [facility] [address] [place], [address] Absolute Lymph 2.42 {X10_3/ul} (Normal) Range: 0.83-4.51 Absolute Neut 5.8 {X10_3/uL} (Normal) Range: 2.0-7.7 IM GRAN % 0.200 % (Normal) Range: 0.0-0.9 Comments: IG% - Immature Granulocytes (promyelocytes, myelocytes andmetamyelocytes) > 1% indicates that a LEFT SHIFT is Present. BASO% 0.3 % (Normal) Range: 0-1 EO% 1.7 % (Normal) Range: 0-5 MONO% 7.7 % (Normal) Range: 0-10 LY% 26.7 % (Normal) Range: 19-41 NEUT% 63.4 % (Normal) Range: 47-70 MPV 9.1 fL (Normal) Range: 6.2-12.0 PLT 264 K/mm3 (Normal) Range: 150-450 RDW SD 49.2 fL (Abnormal) Range: 35.1-43.9 RDW CV 14.0 % (Normal) Range: 11.6-14.6 MCHC 32.7 {g/gl} (Normal) Range: 32-36 MCH 31.4 pg (Normal) Range: 27.0-32.0 MCV 96.0 fL (Normal) Range: 81-99 HCT 38.8 % (Normal) Range: 37-47 HGB 12.7 g/dL (Normal) Range: 12.0-15.0 RBC 4.04 {M/mm3} (Abnormal) Range: 4.2-5.4 WBC 9.1 K/mm3 (Normal) Range: 4.4-11.0 [id number] Comprehensive Metabolic Profil Comments: [facility] [address] [place], [place], [id number] GAP 8 (Normal) Range: 5-15 CO2 27.0 mmol/L (Normal) Range: 21.0-32.0 CL 100 mmol/L (Normal) Range: 98-107 K 4.1 mmol/L (Normal) Range: 3.5-5.1 NA 135 mmol/L (Abnormal) Range: 136-145 T BILI 0.40 mg/dL (Normal) Range: 0.20-1.00 ALT 29 U/L (Normal) Range: 13-56 Comments: Please note revised ALT reference range gdqqgwjzu43/28/2018. ALK P 80 U/L (Normal) Range: 45-117 AST 26 U/L (Normal) Range: 15-37 CA 8.6 mg/dL (Normal) Range: 8.5-10.1 A/G 0.9 {RATIO} (Normal) Range: 0.9-2.4 GLOB 3.5 g/dL (Normal) Range: 2.2-4.2 ALB 3.2 g/dL (Normal) Range: 3.2-5.0 T PROT 6.7 g/dL (Normal) Range: 6.4-8.2 BUN/CRE 13.7 {RATIO} (Normal) Range: 10-20 Estimated CRCL 52.47 ml/min (Normal) EST GFR - AA 89 mL/min (Normal) Comments: GFR Calc EST GFR 74 mL/min (Normal) Comments: Non- GFR Calc CREAT,SERUM 0.80 mg/dL (Normal) Range: 0.55-1.02 Comments: The validity of the calculated GFR AND GFRAA in patients over70 years has not been determined. Clinical correlation isessential. BUN 11 mg/dL (Normal) Range: 7-18 GLU 94 mg/dL (Normal) Range: 74-106 Comments: Please note revised GLUCOSE reference range /02/2018. [id number] CBC W/Diff, Automated Comments: [facility] [address] [place], [place], [id number] Absolute Lymph 1.59 {X10_3/ul} (Normal) Range: 0.83-4.51 Absolute Neut 5.4 {X10_3/uL} (Normal) Range: 2.0-7.7 IM GRAN % 0.100 % (Normal) Range: 0.0-0.9 Comments: IG% - Immature Granulocytes (promyelocytes, myelocytes andmetamyelocytes) > 1% indicates that a LEFT SHIFT is Present. BASO% 0.4 % (Normal) Range: 0-1 EO% 1.7 % (Normal) Range: 0-5 MONO% 8.1 % (Normal) Range: 0-10 LY% 20.5 % (Normal) Range: 19-41 NEUT% 69.2 % (Normal) Range: 47-70 MPV 9.4 fL (Normal) Range: 6.2-12.0 PLT 253 K/mm3 (Normal) Range: 150-450 RDW SD 48.5 fL (Abnormal) Range: 35.1-43.9 RDW CV 14.5 % (Normal) Range: 11.6-14.6 MCHC 33.2 {g/gl} (Normal) Range: 32-36 MCH 32.1 pg (Abnormal) Range: 27.0-32.0 MCV 96.4 fL (Normal) Range: 81-99 HCT 37.9 % (Normal) Range: 37-47 HGB 12.6 g/dL (Normal) Range: 12.0-15.0 RBC 3.93 {M/mm3} (Abnormal) Range: 4.2-5.4 WBC 7.8 K/mm3 (Normal) Range: 4.4-11.0 [id number]-[id number]:10 Comprehensive Metabolic Profil Comments: [facility] [address] [place], [address] GAP 7 (Normal) Range: 5-15 CO2 28.0 mmol/L (Normal) Range: 21.0-32.0 CL 103 mmol/L (Normal) Range: 98-107 K 3.9 mmol/L (Normal) Range: 3.5-5.1 NA 138 mmol/L (Normal) Range: 136-145 T BILI 0.50 mg/dL (Normal) Range: 0.20-1.00 ALT 23 U/L (Normal) Range: 12-78 ALK P 68 U/L (Normal) Range: 45-117 AST 24 U/L (Normal) Range: 15-37 CA 8.7 mg/dL (Normal) Range: 8.5-10.1 A/G 0.9 {RATIO} (Normal) Range: 0.9-2.4 GLOB 3.4 g/dL (Normal) Range: 2.2-4.2 ALB 3.1 g/dL (Abnormal) Range: 3.4-5.0 Comments: Please note revised Albumin AND Globulin reference rangeeffective 2017. T PROT 6.5 g/dL (Normal) Range: 6.4-8.2 BUN/CRE 15.6 {RATIO} (Normal) Range: 10-20 EST GFR - AA 104 mL/min (Normal) Comments: GFR Calc EST GFR 86 mL/min (Normal) Comments: Non- GFR Calc CREAT,SERUM 0.70 mg/dL (Normal) Range: 0.55-1.02 Comments: The validity of the calculated GFR AND GFRAA in patients over70 years has not been determined. Clinical correlation isessential. BUN 11 mg/dL (Normal) Range: 7-18 GLU 79 mg/dL (Normal) Range: 70-110 :18 Lipid Profile Comments: [facility] [address] [facility] [address] [place], [place], [id number] VLDL 19 mg/dL (Normal) Range: 5-40 LDL 70 mg/dL (Normal) Range: 0-130 HDL 74 mg/dL (Normal) Comments: The drugs N-Acetylcysteine and Metamizole may falselydepress this assay. Reference Range HDL <40 mg/dL Low HDL Cholesterol HDL >or= 60 mg/dL High HDL Cholesterol TRIG 97 mg/dL (Normal) Comments: The drugs N-Acetylcysteine and Metamizole may falselydepress this assay.Serum Triglycerides Reference Interval Normal <150 mg/dL Borderline high 150 - 199 mg/dL High 200 - 499 mg/dL Very High > or = 500 mg/dL CHOL 163 mg/dL (Normal) Comments: <200 mg/dL Desirable 200-240 mg/dL Borderline >240 mg/dL High Risk :18 Microalb:Creat Ratio,Random UR Comments: [facility] [address] [place], [place], [id number] MALB:CREAT 13.0 {mg/g_CRE} (Normal) MICROALBUMIN,UR 5.4 mg/L (Normal) UR CREAT 41.90 mg/dL (Normal) :18 Thyroid Stim Hormone (TSH) Comments: [facility] [address] [place], [address] TSH 3.08 {uIU/mL} (Normal) Range: 0.358-3.74 7-Sep-02850:18 Urinalysis, Complete Comments: How was Urine Obtained? CLEAN [facility] [address] [place], [address] MUCUS, URINE 0 SEEN {/hpf} (Normal) BACTERIA 0 SEEN {/hpf} (Normal) SQUAM EPI 0-5 SEEN {/hpf} (Normal) Range: 5-10 RBC-UA 0 SEEN {/hpf} (Normal) Range: 0-5 WBC 0 SEEN {/hpf} (Normal) Range: 0-5 LEUK ESTERASE 25 /ul (Abnormal) OCCULT BLOOD-UR Negative /ul (Normal) NITRITE UR Negative (Normal) UROBILI Normal mg/dL (Normal) PROT DIPSTX Negative mg/dL (Normal) pH UR 7.0 (Normal) Range: 5.0 - 8.0 SP.GR. DIPSTX 1.010 (Normal) Range: 1.002-1.030 KETONE UR Negative mg/dL (Normal) BILIRUBIN URINE Negative mg/dL (Normal) GLUCOSE, UR Normal mg/dL (Normal) CLARITY Clear (Normal) COLOR Yellow (Normal) [id number]-Swt-[id number]:30 CBC W/Diff, Automated Comments: [facility] [address] [facility] [place], [place], [id number] Absolute Lymph 2.22 {X10_3/ul} (Normal) Range: 0.83-4.51 Absolute Neut 6.3 {X10_3/uL} (Normal) Range: 2.0-7.7 IM GRAN % 0.200 % (Normal) Range: 0.0-0.9 Comments: IG% - Immature Granulocytes (promyelocytes, myelocytes andmetamyelocytes) > 1% indicates that a LEFT SHIFT is Present. BASO% 0.2 % (Normal) Range: 0-1 EO% 1.4 % (Normal) Range: 0-5 MONO% 6.1 % (Normal) Range: 0-10 LY% 23.9 % (Normal) Range: 19-41 NEUT% 68.2 % (Normal) Range: 47-70 MPV 9.3 fL (Normal) Range: 6.2-12.0 PLT 269 K/mm3 (Normal) Range: 150-450 RDW SD 49.6 fL (Abnormal) Range: 35.1-43.9 RDW CV 14.3 % (Normal) Range: 11.6-14.6 MCHC 33.2 {g/gl} (Normal) Range: 32-36 MCH 31.9 pg (Normal) Range: 27.0-32.0 MCV 95.9 fL (Normal) Range: 81-99 HCT 39.4 % (Normal) Range: 37-47 HGB 13.1 g/dL (Normal) Range: 12.0-15.0 RBC 4.11 {M/mm3} (Abnormal) Range: 4.2-5.4 WBC 9.3 K/mm3 (Normal) Range: 4.4-11.0 32-Lya-[id number]:30 Comprehensive Metabolic Profil Comments: [facility] [address] [place], [place], [address] GAP 5 (Normal) Range: 5-15 CO2 28.0 mmol/L (Normal) Range: 21.0-32.0 CL 103 mmol/L (Normal) Range: 98-107 K 4.0 mmol/L (Normal) Range: 3.5-5.1 NA 136 mmol/L (Normal) Range: 136-145 T BILI 0.40 mg/dL (Normal) Range: 0.20-1.00 ALT 21 U/L (Normal) Range: 12-78 ALK P 72 U/L (Normal) Range: 45-117 AST 17 U/L (Normal) Range: 15-37 CA 8.9 mg/dL (Normal) Range: 8.5-10.1 A/G 0.9 {RATIO} (Normal) Range: 0.9-2.4 GLOB 3.6 g/dL (Abnormal) Range: 2.3-3.5 ALB 3.4 g/dL (Normal) Range: 3.4-5.0 T PROT 7.0 g/dL (Normal) Range: 6.4-8.2 BUN/CRE 15.1 {RATIO} (Normal) Range: 10-20 Estimated CRCL 41.97 ml/min (Normal) EST GFR - AA 91 mL/min (Normal) Comments: GFR Calc EST GFR 75 mL/min (Normal) Comments: Non- GFR Calc CREAT,SERUM 0.79 mg/dL (Normal) Range: 0.55-1.02 Comments: The validity of the calculated GFR AND GFRAA in patients over70 years has not been determined. Clinical correlation isessential. BUN 12 mg/dL (Normal) Range: 7-18 GLU 99 mg/dL (Normal) Range: 70-110 :37 CBC W/Diff, Automated Comments: [facility] [address] [place], [place], [id number] Absolute Lymph 2.58 {X10_3/ul} (Normal) Range: 0.83-4.51 Absolute Neut 5.4 {X10_3/uL} (Normal) Range: 2.0-7.7 IM GRAN % 0.100 % (Normal) Range: 0.0-0.9 Comments: IG% - Immature Granulocytes (promyelocytes, myelocytes andmetamyelocytes) > 1% indicates that a LEFT SHIFT is Present. BASO% 0.2 % (Normal) Range: 0-1 EO% 1.5 % (Normal) Range: 0-5 MONO% 5.9 % (Normal) Range: 0-10 LY% 29.8 % (Normal) Range: 19-41 NEUT% 62.5 % (Normal) Range: 47-70 MPV 9.2 fL (Normal) Range: 6.2-12.0 PLT 256 K/mm3 (Normal) Range: 150-450 RDW SD 51.2 fL (Abnormal) Range: 35.1-43.9 RDW CV 14.5 % (Normal) Range: 11.6-14.6 MCHC 32.1 {g/gl} (Normal) Range: 32-36 MCH 31.0 pg (Normal) Range: 27.0-32.0 MCV 96.7 fL (Normal) Range: 81-99 HCT 40.5 % (Normal) Range: 37-47 HGB 13.0 g/dL (Normal) Range: 12.0-15.0 RBC 4.19 {M/mm3} (Abnormal) Range: 4.2-5.4 WBC 8.7 K/mm3 (Normal) Range: 4.4-11.0 :37 Comprehensive Metabolic Profil Comments: [facility] [address] [place], [place], [id number] GAP 9 (Normal) Range: 5-15 CO2 27.0 mmol/L (Normal) Range: 21.0-32.0 CL 104 mmol/L (Normal) Range: 98-107 K 4.0 mmol/L (Normal) Range: 3.5-5.1 NA 140 mmol/L (Normal) Range: 136-145 T BILI 0.50 mg/dL (Normal) Range: 0.20-1.00 ALT 23 U/L (Normal) Range: 12-78 ALK P 74 U/L (Normal) Range: 45-117 AST 21 U/L (Normal) Range: 15-37 CA 9.0 mg/dL (Normal) Range: 8.5-10.1 A/G 0.9 {RATIO} (Normal) Range: 0.9-2.4 GLOB 3.6 g/dL (Abnormal) Range: 2.3-3.5 ALB 3.4 g/dL (Normal) Range: 3.4-5.0 T PROT 7.0 g/dL (Normal) Range: 6.4-8.2 BUN/CRE 15.0 {RATIO} (Normal) Range: 10-20 EST GFR - AA 82 mL/min (Normal) Comments: GFR Calc EST GFR 68 mL/min (Normal) Comments: Non- GFR Calc CREAT,SERUM 0.86 mg/dL (Normal) Range: 0.55-1.02 Comments: The validity of the calculated GFR AND GFRAA in patients over70 years has not been determined. Clinical correlation isessential. BUN 13 mg/dL (Normal) Range: 7-18 GLU 94 mg/dL (Normal) Range: 70-110 84-[id number]:37 CRP Comments: [facility] [address] [place], [place], [address] C-REACTIVE PROT < 2.90 mg/L (Normal) Range: 0.0-3.0 Comments: C-Reactive Protein (CRP) provides useful information for thediagnosis, therapy and monitoring of inflammatory processesand associated diseases. For the evaluation of Relative Riskfor Cardiovascular Dise ase, a High Sensitivity CRP (HSCRP)should be ordered. [id number] Erythrocyte Sed Rate Comments: [facility] [address] [place], [place], [id number] SED RATE 24 mm/h (Normal) Range: 0-30 73-Qbj-[id number]:40 CBC W/Diff, Automated Comments: Comments: send results to Dr. Brooks and Dr. LambertComments: send results to Dr. Brooks and Dr. Sharifdavid [facility] [address] [place], [address] Absolute Lymph 2.36 {X10_3/ul} (Normal) Range: 0.83-4.51 Absolute Neut 5.1 {X10_3/uL} (Normal) Range: 2.0-7.7 IM GRAN % 0.100 % (Normal) Range: 0.0-0.9 Comments: IG% - Immature Granulocytes (promyelocytes, myelocytes andmetamyelocytes) > 1% indicates that a LEFT SHIFT is Present. BASO% 0.2 % (Normal) Range: 0-1 EO% 1.1 % (Normal) Range: 0-5 MONO% 5.7 % (Normal) Range: 0-10 LY% 29.2 % (Normal) Range: 19-41 NEUT% 63.7 % (Normal) Range: 47-70 MPV 9.3 fL (Normal) Range: 6.2-12.0 PLT 286 K/mm3 (Normal) Range: 150-450 RDW SD 47.1 fL (Abnormal) Range: 35.1-43.9 RDW CV 13.7 % (Normal) Range: 11.6-14.6 MCHC 33.6 {g/gl} (Normal) Range: 32-36 MCH 31.9 pg (Normal) Range: 27.0-32.0 MCV 95.0 fL (Normal) Range: 81-99 HCT 38.1 % (Normal) Range: 37-47 HGB 12.8 g/dL (Normal) Range: 12.0-15.0 RBC 4.01 {M/mm3} (Abnormal) Range: 4.2-5.4 WBC 8.1 K/mm3 (Normal) Range: 4.4-11.0 37-Ult-238421:40 Comprehensive Metabolic Profil Comments: Comments: send results to Dr. Brooks and Dr. Sharifdavid [facility] [address] [facility] [address] [place], [place], [id number] GAP 7 (Normal) Range: 5-15 CO2 27.0 mmol/L (Normal) Range: 21.0-32.0 CL 104 mmol/L (Normal) Range: 98-107 K 4.1 mmol/L (Normal) Range: 3.5-5.1 NA 138 mmol/L (Normal) Range: 136-145 T BILI 0.40 mg/dL (Normal) Range: 0.20-1.00 ALT 21 U/L (Normal) Range: 12-78 ALK P 69 U/L (Normal) Range: 45-117 AST 20 U/L (Normal) Range: 15-37 CA 8.6 mg/dL (Normal) Range: 8.5-10.1 A/G 1.0 {RATIO} (Normal) Range: 0.9-2.4 GLOB 3.4 g/dL (Normal) Range: 2.3-3.5 ALB 3.3 g/dL (Abnormal) Range: 3.4-5.0 T PROT 6.7 g/dL (Normal) Range: 6.4-8.2 BUN/CRE 14.7 {RATIO} (Normal) Range: 10-20 Estimated CRCL 42.62 ml/min (Normal) EST GFR - AA 97 mL/min (Normal) Comments: GFR Calc EST GFR 80 mL/min (Normal) Comments: Non- GFR Calc CREAT,SERUM 0.75 mg/dL (Normal) Range: 0.55-1.02 Comments: The validity of the calculated GFR AND GFRAA in patients over70 years has not been determined. Clinical correlation isessential. BUN 11 mg/dL (Normal) Range: 7-18 GLU 107 mg/dL (Normal) Range: 70-110 78-Itt-95717:26 CBC W/Diff, Automated Comments: ORDERED: CBCD, CMP ORDERED: VITD, TSH, CBCD, LIPID, CMP, CAROLYN, [facility] [address] [place], [place], [id number] Absolute Lymph 2.36 {X10_3/ul} (Normal) Range: 0.83-4.51 Absolute Neut 3.6 {X10_3/uL} (Normal) Range: 2.0-7.7 IM GRAN % 0.100 % (Normal) Range: 0.0-0.9 Comments: IG% - Immature Granulocytes (promyelocytes, myelocytes andmetamyelocytes) > 1% indicates that a LEFT SHIFT is Present. BASO% 0.3 % (Normal) Range: 0-1 EO% 2.1 % (Normal) Range: 0-5 MONO% 7.6 % (Normal) Range: 0-10 LY% 35.3 % (Normal) Range: 19-41 NEUT% 54.6 % (Normal) Range: 47-70 MPV 9.0 fL (Normal) Range: 6.2-12.0 PLT 278 K/mm3 (Normal) Range: 150-450 RDW SD 51.2 fL (Abnormal) Range: 35.1-43.9 RDW CV 14.6 % (Normal) Range: 11.6-14.6 MCHC 33.2 {g/gl} (Normal) Range: 32-36 MCH 32.0 pg (Normal) Range: 27.0-32.0 MCV 96.6 fL (Normal) Range: 81-99 HCT 40.1 % (Normal) Range: 37-47 HGB 13.3 g/dL (Normal) Range: 12.0-15.0 RBC 4.15 {M/mm3} (Abnormal) Range: 4.2-5.4 WBC 6.7 K/mm3 (Normal) Range: 4.4-11.0 00-Sgu-10635:26 Comprehensive Metabolic Profil Comments: ORDERED: CBCD, CMP ORDERED: VITD, TSH, CBCD, LIPID, CMP, CAROLYN, [facility] [address] [place], [address] GAP 6 (Normal) Range: 5-15 CO2 26.0 mmol/L (Normal) Range: 21.0-32.0 CL 104 mmol/L (Normal) Range: 98-107 K 4.2 mmol/L (Normal) Range: 3.5-5.1 NA 136 mmol/L (Normal) Range: 136-145 T BILI 0.70 mg/dL (Normal) Range: 0.20-1.00 ALT 22 U/L (Normal) Range: 12-78 ALK P 77 U/L (Normal) Range: 50-136 AST 21 U/L (Normal) Range: 15-37 CA 8.7 mg/dL (Normal) Range: 8.5-10.1 A/G 0.9 {RATIO} (Normal) Range: 0.9-2.4 GLOB 3.7 g/dL (Abnormal) Range: 2.3-3.5 ALB 3.3 g/dL (Abnormal) Range: 3.4-5.0 T PROT 7.0 g/dL (Normal) Range: 6.4-8.2 BUN/CRE 13.5 {RATIO} (Normal) Range: 10-20 EST GFR - AA 111 mL/min (Normal) Comments: GFR Calc EST GFR 92 mL/min (Normal) Comments: Non- GFR Calc CREAT,SERUM 0.67 mg/dL (Normal) Range: 0.55-1.20 Comments: The validity of the calculated GFR AND GFRAA in patients over70 years has not been determined. Clinical correlation isessential. BUN 9 mg/dL (Normal) Range: 7-18 GLU 96 mg/dL (Normal) Range: 70-110 36-Cvr-45658:26 Lipid Profile Comments: ORDERED: CBCD, CMP ORDERED: VITD, TSH, CBCD, LIPID, CMP, CAROLYN, [facility] [address] [facility] [place], [address] VLDL 18 mg/dL (Normal) Range: 5-40 LDL 91 mg/dL (Normal) Range: 0-130 HDL 74 mg/dL (Normal) Comments: The drugs N-Acetylcysteine and Metamizole may falsely deressthis assay. Reference Range HDL <40 mg/dL Low HDL Cholesterol HDL >or= 60 mg/dL High HDL Cholesterol TRIG 91 mg/dL (Normal) Comments: The drugs N-Acetylcysteine and Metamizole may falsely deressthis assay.Serum Triglycerides Reference Interval Normal <150 mg/dL Borderline high 150 - 199 mg/dL High 200 - 499 mg/dL Very High > or = 500 mg/dL CHOL 183 mg/dL (Normal) Comments: <200 mg/dL Desirable 200-240 mg/dL Borderline >240 mg/dL High Risk :26 Microalb:Creat Ratio,Random UR Comments: ORDERED: CBCD, CMPDRBENIGNO ORDERED: VITD, TSH, CBCD, LIPID, CMP, CAROLYN, [facility] [address] [place], [place], [id number] MALB:CREAT 20.7 {mg/g_CRE} (Normal) MICROALBUMIN,UR 5.0 mg/L (Normal) UR CREAT 24.40 mg/dL (Normal) :26 Thyroid Stim Hormone (TSH) Comments: ORDERED: CBCD, CMPDRBENIGNO ORDERED: VITD, TSH, CBCD, LIPID, CMP, CAROLYN, [facility] [address] [place], [place], [id number] TSH 1.90 {uIU/mL} (Normal) Range: 0.358-3.74 :26 Urinalysis, Complete Comments: ORDERED: CBCD, CMPDRBENIGNO ORDERED: VITD, TSH, CBCD, LIPID, CMP, CAROLYN, UACHow was Urine Obtained? CLEAN [facility] [address] [place], [place], [address] MUCUS, URINE 0 SEEN {/hpf} (Normal) BACTERIA RARE {/hpf} (Normal) SQUAM EPI 0-5 SEEN {/hpf} (Normal) Range: 5-10 RBC-UA 0 SEEN {/hpf} (Normal) Range: 0-5 WBC 0-5 SEEN {/hpf} (Normal) Range: 0-5 LEUK ESTERASE 100 /ul (Abnormal) OCCULT BLOOD-UR Negative /ul (Normal) NITRITE UR Negative (Normal) UROBILI Normal mg/dL (Normal) PROT DIPSTX Negative mg/dL (Normal) pH UR 7.0 (Normal) Range: 5.0 - 8.0 SP.GR. DIPSTX 1.010 (Normal) Range: 1.002-1.030 KETONE UR Negative mg/dL (Normal) BILIRUBIN URINE Negative mg/dL (Normal) GLUCOSE, UR Normal mg/dL (Normal) CLARITY Clear (Normal) COLOR Yellow (Normal) 70-Vig-68399:26 Vitamin D,25 Hydroxy Comments: ORDERED: CBCD, CMPDRBENIGNO ORDERED: VITD, TSH, CBCD, LIPID, CMP, CAROLYN, [facility] [address] [place], [id number] Vitamin D 25-OH 31.1 ng/mL (Normal) Comments: Vitamin D 25(OH) Status Range Deficiency <20 ng/mL (50nmol/L) Insuffciency 20 - 30 ng/mL (50 - 75 nmol/L) Sufficiency 30 - 100 ng/mL (75 - 250 nmol/L) Toxicity >100 ng/mL (>250 nmol/L) :45 CBC W/Diff, Automated Comments: [facility] [address] [place], [place], [id number] Absolute Lymph 2.26 {X10_3/ul} (Normal) Range: 0.83-4.51 Absolute Neut 5.4 {X10_3/uL} (Normal) Range: 2.0-7.7 IM GRAN % 0.100 % (Normal) Range: 0.0-0.9 Comments: IG% - Immature Granulocytes (promyelocytes, myelocytes andmetamyelocytes) > 1% indicates that a LEFT SHIFT is Present. BASO% 0.2 % (Normal) Range: 0-1 EO% 1.8 % (Normal) Range: 0-5 MONO% 6.1 % (Normal) Range: 0-10 LY% 27.2 % (Normal) Range: 19-41 NEUT% 64.6 % (Normal) Range: 47-70 MPV 9.2 fL (Normal) Range: 6.2-12.0 PLT 280 K/mm3 (Normal) Range: 150-450 RDW SD 47.3 fL (Abnormal) Range: 35.1-43.9 RDW CV 14.1 % (Normal) Range: 11.6-14.6 MCHC 33.5 {g/gl} (Normal) Range: 32-36 MCH 32.1 pg (Abnormal) Range: 27.0-32.0 MCV 95.9 fL (Normal) Range: 81-99 HCT 37.3 % (Normal) Range: 37-47 HGB 12.5 g/dL (Normal) Range: 12.0-15.0 RBC 3.89 {M/mm3} (Abnormal) Range: 4.2-5.4 WBC 8.3 K/mm3 (Normal) Range: 4.4-11.0 [id number] Comprehensive Metabolic Profil Comments: [facility] [id number] [place], [place], [id number] GAP 5 (Normal) Range: 5-15 CO2 28.0 mmol/L (Normal) Range: 21.0-32.0 CL 104 mmol/L (Normal) Range: 98-107 K 4.1 mmol/L (Normal) Range: 3.5-5.1 NA 137 mmol/L (Normal) Range: 136-145 T BILI 0.60 mg/dL (Normal) Range: 0.20-1.00 ALT 22 U/L (Normal) Range: 12-78 ALK P 67 U/L (Normal) Range: 50-136 AST 20 U/L (Normal) Range: 15-37 CA 8.5 mg/dL (Normal) Range: 8.5-10.1 A/G 0.9 {RATIO} (Normal) Range: 0.9-2.4 GLOB 3.5 g/dL (Normal) Range: 2.3-3.5 ALB 3.2 g/dL (Abnormal) Range: 3.4-5.0 T PROT 6.7 g/dL (Normal) Range: 6.4-8.2 BUN/CRE 14.5 {RATIO} (Normal) Range: 10-20 EST GFR - AA 96 mL/min (Normal) Comments: GFR Calc EST GFR 79 mL/min (Normal) Comments: Non- GFR Calc CREAT,SERUM 0.76 mg/dL (Normal) Range: 0.55-1.20 Comments: The validity of the calculated GFR AND GFRAA in patients over70 years has not been determined. Clinical correlation isessential. BUN 11 mg/dL (Normal) Range: 7-18 GLU 119 mg/dL (Abnormal) Range: 70-110 Comments: Fasting Glucose result from 110 to <126 mg/dLsuggests IMPAIRED HOMEOSTASIS per A.D.A. criteria. [id number] CBC W/Diff, Automated Comments: [facility] [id number] [place], [place], [id number] Absolute Lymph 2.16 {X10_3/ul} (Normal) Range: 0.83-4.51 Absolute Neut 4.7 {X10_3/uL} (Normal) Range: 2.0-7.7 IM GRAN % 0.100 % (Normal) Range: 0.0-0.9 Comments: IG% - Immature Granulocytes (promyelocytes, myelocytes andmetamyelocytes) > 1% indicates that a LEFT SHIFT is Present. BASO% 0.4 % (Normal) Range: 0-1 EO% 1.5 % (Normal) Range: 0-5 MONO% 10.8 % (Abnormal) Range: 0-10 LY% 27.6 % (Normal) Range: 19-41 NEUT% 59.6 % (Normal) Range: 47-70 MPV 9.5 fL (Normal) Range: 6.2-12.0 PLT 275 K/mm3 (Normal) Range: 150-450 RDW SD 48.0 fL (Abnormal) Range: 35.1-43.9 RDW CV 13.9 % (Normal) Range: 11.6-14.6 MCHC 33.4 {g/gl} (Normal) Range: 32-36 MCH 31.8 pg (Normal) Range: 27.0-32.0 MCV 95.2 fL (Normal) Range: 81-99 HCT 39.8 % (Normal) Range: 37-47 HGB 13.3 g/dL (Normal) Range: 12.0-15.0 RBC 4.18 {M/mm3} (Abnormal) Range: 4.2-5.4 WBC 7.8 K/mm3 (Normal) Range: 4.4-11.0 :41 CCP IgG Antibodies Comments: [facility] (refer to report for specific site)refer to report for address and phone number ANTI-CCP [id number] > 250 {units} (Abnormal) Range: 0-19 Comments: Negative <20 Weak positive 20 - 39 Moderate positive 40 - 59 Strong positive >59Performed at: [facility] [id number] Director: Nato Abbasi MD, Phone: [phone] [id number] Comprehensive Metabolic Profil Comments: [facility] [id number] [place], [place], [id number] GAP 6 (Normal) Range: 5-15 CO2 29.0 mmol/L (Normal) Range: 21.0-32.0 CL 104 mmol/L (Normal) Range: 98-107 K 4.0 mmol/L (Normal) Range: 3.5-5.1 NA 139 mmol/L (Normal) Range: 136-145 T BILI 0.40 mg/dL (Normal) Range: 0.20-1.00 ALT 23 U/L (Normal) Range: 12-78 ALK P 71 U/L (Normal) Range: 50-136 AST 26 U/L (Normal) Range: 15-37 CA 9.1 mg/dL (Normal) Range: 8.5-10.1 A/G 0.9 {RATIO} (Normal) Range: 0.9-2.4 GLOB 3.8 g/dL (Abnormal) Range: 2.3-3.5 ALB 3.4 g/dL (Normal) Range: 3.4-5.0 T PROT 7.2 g/dL (Normal) Range: 6.4-8.2 BUN/CRE 14.4 {RATIO} (Normal) Range: 10-20 EST GFR - AA 106 mL/min (Normal) Comments: GFR Calc EST GFR 88 mL/min (Normal) Comments: Non- GFR Calc CREAT,SERUM 0.70 mg/dL (Normal) Range: 0.55-1.20 Comments: The validity of the calculated GFR AND GFRAA in patients over70 years has not been determined. Clinical correlation isessential. BUN 10 mg/dL (Normal) Range: 7-18 GLU 80 mg/dL (Normal) Range: 70-110 [id number]-Tlx-[id number]:41 Rheumatoid Factor Comments: [facility] [address] [place], [place], [id number] RHEUMATOID FAC 92.0 {IU/mL} (Abnormal) 68-Xaq-740660:10 CBC W/Diff, Automated Comments: [facility] [address] [place], [address] ; ordered by Cecilia Absolute Lymph 1.76 {X10_3/ul} (Normal) Range: 0.83-4.51 Absolute Neut 3.7 {X10_3/uL} (Normal) Range: 2.0-7.7 IM GRAN % 0.200 % (Normal) Range: 0.0-0.9 Comments: IG% - Immature Granulocytes (promyelocytes, myelocytes andmetamyelocytes) > 1% indicates that a LEFT SHIFT is Present. BASO% 0.5 % (Normal) Range: 0-1 EO% 2.4 % (Normal) Range: 0-5 MONO% 9.8 % (Normal) Range: 0-10 LY% 28.3 % (Normal) Range: 19-41 NEUT% 58.8 % (Normal) Range: 47-70 MPV 9.0 fL (Normal) Range: 6.2-12.0 PLT 246 K/mm3 (Normal) Range: 150-450 RDW SD 50.3 fL (Abnormal) Range: 35.1-43.9 RDW CV 14.2 % (Normal) Range: 11.6-14.6 MCHC 32.6 {g/gl} (Normal) Range: 32-36 MCH 31.7 pg (Normal) Range: 27.0-32.0 MCV 97.3 fL (Normal) Range: 81-99 HCT 39.6 % (Normal) Range: 37-47 HGB 12.9 g/dL (Normal) Range: 12.0-15.0 RBC 4.07 {M/mm3} (Abnormal) Range: 4.2-5.4 WBC 6.2 K/mm3 (Normal) Range: 4.4-11.0 53-Avl-231568:10 Comprehensive Metabolic Profil Comments: [facility] [address] [place], [address] GAP 3 (Abnormal) Range: 5-15 CO2 31.0 mmol/L (Normal) Range: 21.0-32.0 CL 104 mmol/L (Normal) Range: 98-107 K 3.7 mmol/L (Normal) Range: 3.5-5.1 NA 138 mmol/L (Normal) Range: 136-145 T BILI 0.40 mg/dL (Normal) Range: 0.20-1.00 ALT 24 U/L (Normal) Range: 12-78 ALK P 74 U/L (Normal) Range: 50-136 AST 26 U/L (Normal) Range: 15-37 CA 8.6 mg/dL (Normal) Range: 8.5-10.1 A/G 0.9 {RATIO} (Normal) Range: 0.9-2.4 GLOB 3.7 g/dL (Abnormal) Range: 2.3-3.5 ALB 3.3 g/dL (Abnormal) Range: 3.4-5.0 T PROT 7.0 g/dL (Normal) Range: 6.4-8.2 BUN/CRE 10.7 {RATIO} (Normal) Range: 10-20 Estimated CRCL 43.27 ml/min (Normal) EST GFR - AA 98 mL/min (Normal) Comments: GFR Calc EST GFR 81 mL/min (Normal) Comments: Non- GFR Calc CREAT,SERUM 0.75 mg/dL (Normal) Range: 0.55-1.20 Comments: The validity of the calculated GFR AND GFRAA in patients over70 years has not been determined. Clinical correlation isessential. BUN 8 mg/dL (Normal) Range: 7-18 GLU 77 mg/dL (Normal) Range: 70-110 83-Iui-254320:50 FECAL OCCULT- Tubes sent home ([id number]) FECAL OCCULT HGB ASSAY, QUAL, 1-3 SIMULTANEOU negative (Normal) [id number]-[id number]:08 Protein Electro.Ur-Random Comments: Test performed at:[facility] [address] [place], [place] [id number] NOTE Comment (Normal) Comments: Protein electrophoresis scan will follow via computer,mail, or cream tester delivery.Performed at: - [facility] [id number] Director: Michael Steven PhD, Phone: [phone] M-SPIKE,U (Normal) Comments: Not Observed GAMMA GLOB,U 18.6 % (Normal) BETA GLOB,U 26.5 % (Normal) OOTDG-3-COMR,U 19.4 % (Normal) VVBUO-2-RTCF,U 5.4 % (Normal) ALBUMIN,UR 30.0 % (Normal) PROTEIN,UR < 4.0 mg/dL (Normal) Range: 0.0-15.0 Comments: Verified by repeat analysis [id number]-[id number] Protein Electroph, S Comments: Test performed at:[facility] [address] [place] [address] NOTE: Comment (Normal) Comments: The SPE pattern appears essentially unremarkable. Evidenceof monoclonal protein is not apparent. INTERPRETATION Comment (Normal) Comments: Protein electrophoresis scan will follow via computer,mail, or cream tester delivery. A/G RATIO 1.3 (Normal) Range: 0.7-2.0 GLOBULIN, TOTAL 2.7 g/dL (Normal) Range: 2.0-4.5 M-SPIKE (Normal) Comments: Not Observed GAMMA GLOBULIN 1.0 g/dL (Normal) Range: 0.5-1.6 BETA GLOBULIN 0.9 g/dL (Normal) Range: 0.6-1.3 ALPHA-2 GLOBUL 0.7 g/dL (Normal) Range: 0.4-1.2 ALPHA-1 GLOBUL 0.2 g/dL (Normal) Range: 0.1-0.4 ALBUMIN 3.5 g/dL (Normal) Range: 3.2-5.6 PROTEIN,TOTAL 6.2 g/dL (Normal) Range: 6.0-8.5 33-Noh-95684:00 CBC W/Diff, Automated Comments: Test performed at:[facility] [address] [place] [address] Absolute Lymph 2.28 {X10_3/ul} (Normal) Range: 0.83-4.51 Absolute Neut 4.0 {X10_3/uL} (Normal) Range: 2.0-7.7 IM GRAN % 0.100 % (Normal) Range: 0.0-0.9 Comments: IG% - Immature Granulocytes (promyelocytes, myelocytes andmetamyelocytes) > 1% indicates that a LEFT SHIFT is Present. BASO% 0.3 % (Normal) Range: 0-1 EO% 2.7 % (Normal) Range: 0-5 MONO% 8.5 % (Normal) Range: 0-10 LY% 32.2 % (Normal) Range: 19-41 NEUT% 56.2 % (Normal) Range: 47-70 MPV 9.2 fL (Normal) Range: 6.2-12.0 PLT 241 K/mm3 (Normal) Range: 150-450 RDW SD 47.8 fL (Abnormal) Range: 35.1-43.9 RDW CV 13.7 % (Normal) Range: 11.6-14.6 MCHC 33.6 {g/gl} (Normal) Range: 32-36 MCH 32.1 pg (Abnormal) Range: 27.0-32.0 MCV 95.7 fL (Normal) Range: 81-99 HCT 42.0 % (Normal) Range: 37-47 HGB 14.1 g/dL (Normal) Range: 12.0-15.0 RBC 4.39 {M/mm3} (Normal) Range: 4.2-5.4 WBC 7.1 K/mm3 (Normal) Range: 4.4-11.0 67-Aro-11652:00 Comprehensive Metabolic Profil Comments: Test performed at:[facility] [address] [place] [address] GAP 7 (Normal) Range: 5-15 CO2 28.0 mmol/L (Normal) Range: 21.0-32.0 CL 102 mmol/L (Normal) Range: 98-107 K 4.3 mmol/L (Normal) Range: 3.5-5.1 NA 137 mmol/L (Normal) Range: 136-145 T BILI 0.60 mg/dL (Normal) Range: 0.20-1.00 ALT 19 U/L (Normal) Range: 12-78 ALK P 73 U/L (Normal) Range: 50-136 AST 24 U/L (Normal) Range: 15-37 CA 8.7 mg/dL (Normal) Range: 8.5-10.1 A/G 0.9 {RATIO} (Normal) Range: 0.9-2.4 GLOB 3.8 g/dL (Abnormal) Range: 2.3-3.5 ALB 3.5 g/dL (Normal) Range: 3.4-5.0 T PROT 7.3 g/dL (Normal) Range: 6.4-8.2 BUN/CRE 14.9 {RATIO} (Normal) Range: 10-20 CREAT,SERUM 0.67 mg/dL (Normal) Range: 0.55-1.20 Comments: Please note revised CREATININE reference range ogkjtowqd01/22/2015. BUN 10 mg/dL (Normal) Range: 7-18 GLU 93 mg/dL (Normal) Range: 70-110 :00 Lipid Profile Comments: Test performed at:[facility] [address] [place] [address] VLDL 24 mg/dL (Normal) Range: 5-40 LDL 100 mg/dL (Normal) Range: 0-130 HDL 57 mg/dL (Normal) Comments: Reference Range HDL <40 mg/dL Low HDL Cholesterol HDL >or= 60 mg/dL High HDL Cholesterol TRIG 118 mg/dL (Normal) Comments: Serum Triglycerides Reference Interval Normal <150 mg/dL Borderline high 150 - 199 mg/dL High 200 - 499 mg/dL Very High > or = 500 mg/dL CHOL 181 mg/dL (Normal) Comments: <200 mg/dL Desirable 200-240 mg/dL Borderline >240 mg/dL High Risk :00 Microalb:Creat Ratio,Random UR Comments: Test performed at:[facility] [address] [place] [address] MALB:CREAT 12.0 {mg/g_CRE} (Normal) MICROALBUMIN,UR 9.5 mg/L (Normal) UR CREAT 75.80 mg/dL (Normal) :00 Thyroid Stim Hormone (TSH) Comments: Test performed at:[facility] [id number] [place] [address] TSH 2.01 {uIU/mL} (Normal) Range: 0.358-3.74 :00 Urinalysis, Routine (Dipstick) Comments: How was Urine Obtained? CLEAN CATCHTest performed at:[facility] [address] [place] [address] LEUK ESTERASE 500 /ul (Abnormal) OCCULT BLOOD-UR 10 /ul (Abnormal) NITRITE UR Negative (Normal) UROBILI Normal mg/dL (Normal) PROT DIPSTX Negative mg/dL (Normal) pH UR 8.0 (Normal) Range: 5.0 - 8.0 SP.GR. DIPSTX 1.010 (Normal) Range: 1.002-1.030 KETONE UR Negative mg/dL (Normal) BILIRUBIN URINE Negative mg/dL (Normal) GLUCOSE, UR Normal mg/dL (Normal) CLARITY Sl. Cloudy (Normal) COLOR Yellow (Normal) 89-Vyl-72719:00 Vitamin D,25 Hydroxy Comments: Test performed at:[facility] [address] [place] [address] Vitamin D 25-OH 33.5 ng/mL (Normal) Comments: Vitamin D 25(OH) Status Range Deficiency <20 ng/mL (50nmol/L) Insuffciency 20 - 30 ng/mL (50 - 75 nmol/L) Sufficiency 30 - 100 ng/mL (75 - 250 nmol/L) Toxicity >100 ng/mL (>250 nmol/L) 69-Pjl-895918:00 CBCD ABSOLUTE NEUT 5.3 3/uL (Normal) Range: 2.0-7.7 BASO% 0.3 % (Normal) Range: 0-1 EO% 3.8 % (Normal) Range: 0-5 LY% 17.8 % (Abnormal) Range: 19-41 MONO% 6.2 % (Normal) Range: 0-10 MPV 7.3 fL (Normal) Range: 6.5-12.0 NEUT% 71.9 % (Abnormal) Range: 47-70 HCT 38.9 % (Normal) Range: 37-47 HGB 13.1 g/dL (Normal) Range: 12.0-16.0 MCH 33.6 pg (Abnormal) Range: 27.0-32.0 MCHC 33.6 g/dL (Normal) Range: 32-36 MCV 100.1 fL (Abnormal) Range: 81-99 PLT 243 K/mm3 (Normal) Range: 150-450 RBC 3.89 {M/mm3} (Abnormal) Range: 4.2-5.4 RDW 14.8 % (Abnormal) Range: 11.6-14.6 WBC 7.3 K/mm3 (Normal) Range: 4.4-11.0 74-Boy-545422:00 COMP METABOLIC A/G 0.9 {RATIO} (Normal) Range: 0.9-2.4 ALK P 70 U/L (Normal) Range: 50-136 ALT 38 U/L (Normal) Range: 12-78 AST 38 U/L (Abnormal) Range: 15-37 CA 8.1 mg/dL (Abnormal) Range: 8.5-10.1 CL 101 mmol/L (Normal) Range: 98-107 CO2 29.0 mmol/L (Normal) Range: 21.0-32.0 GAP 6 (Normal) Range: 5-15 K 4.3 mmol/L (Normal) Range: 3.5-5.1 NA 136 mmol/L (Normal) Range: 136-145 T BILI 0.40 mg/dL (Normal) Range: 0.00-1.00 ALB 3.2 g/dL (Abnormal) Range: 3.4-5.0 BUN/CRE 12.9 {RATIO} (Normal) Range: 10-20 CREAT,SERUM 0.7 mg/dL (Normal) Range: 0.6-1.0 EST GFR 88 mL/min (Normal) EST GFR - AA 107 mL/min (Normal) GLOB 3.6 g/dL (Normal) Range: 2.7-4.2 T PROT 6.8 g/dL (Normal) Range: 6.4-8.2 BUN 9 mg/dL (Normal) Range: 7-18 GLU 95 mg/dL (Normal) Range: 70-110 8-Qbk-428111:10 CBCD Comments: COMMENTS: FAX RESULTS TO DR BROOKS ABSOLUTE NEUT 3.4 3/uL (Normal) Range: 2.0-7.7 BASO% 0.4 % (Normal) Range: 0-1 EO% 2.9 % (Normal) Range: 0-5 MONO% 10.7 % (Abnormal) Range: 0-10 HCT 37.0 % (Normal) Range: 37-47 LY% 24.4 % (Normal) Range: 19-41 MCH 33.8 pg (Abnormal) Range: 27.0-32.0 MCHC 34.1 g/dL (Normal) Range: 32-36 MCV 99.2 fL (Abnormal) Range: 81-99 MPV 6.8 fL (Normal) Range: 6.5-12.0 NEUT% 61.6 % (Normal) Range: 47-70 PLT 224 K/mm3 (Normal) Range: 150-450 RDW 13.8 % (Normal) Range: 11.6-14.6 HGB 12.6 g/dL (Normal) Range: 12.0-16.0 RBC 3.73 {M/mm3} (Abnormal) Range: 4.2-5.4 WBC 5.6 K/mm3 (Normal) Range: 4.4-11.0 0-Xtp-[id number]:10 COMP METABOLIC Comments: COMMENTS: FAX RESULTS TO DR SCANLON FAXED 03/19/10 [address]. CO2 29.0 mmol/L (Normal) Range: 21.0-32.0 GAP 5 (Normal) Range: 5-15 A/G 1.0 {RATIO} (Normal) Range: 0.9-2.4 ALB 3.4 g/dL (Normal) Range: 3.4-5.0 ALK P 51 U/L (Normal) Range: 50-136 ALT 22 U/L (Normal) Range: 12-78 AST 22 U/L (Normal) Range: 15-37 BUN/CRE 18.6 {RATIO} (Normal) Range: 10-20 CA 9.1 mg/dL (Normal) Range: 8.5-10.1 CL 99 mmol/L (Normal) Range: 98-107 GLOB 3.5 g/dL (Normal) Range: 2.7-4.2 K 4.0 mmol/L (Normal) Range: 3.5-5.1 NA 133 mmol/L (Abnormal) Range: 136-145 T BILI 0.40 mg/dL (Normal) Range: 0.00-1.00 T PROT 6.9 g/dL (Normal) Range: 6.4-8.2 BUN 13 mg/dL (Normal) Range: 7-18 CREAT,SERUM 0.7 mg/dL (Normal) Range: 0.6-1.0 EST GFR 88 mL/min (Normal) EST GFR - AA 107 mL/min (Normal) GLU 58 mg/dL (Abnormal) Range: 70-110 41-Zfo-248011:06 CBCD Comments: COMMENTS: FAX RESULTS TO DR. BROOKS ABSOLUTE NEUT 3.3 3/uL (Normal) Range: 2.0-7.7 BASO% 0.5 % (Normal) Range: 0-1 EO% 2.5 % (Normal) Range: 0-5 HCT 37.3 % (Normal) Range: 37-47 LY% 25.1 % (Normal) Range: 19-41 MCH 34.1 pg (Abnormal) Range: 27.0-32.0 MCHC 34.3 g/dL (Normal) Range: 32-36 MCV 99.5 fL (Abnormal) Range: 81-99 MONO% 9.0 % (Normal) Range: 0-10 MPV 6.4 fL (Abnormal) Range: 6.5-12.0 NEUT% 62.9 % (Normal) Range: 47-70 PLT 245 K/mm3 (Normal) Range: 150-450 RDW 14.4 % (Normal) Range: 11.6-14.6 HGB 12.8 g/dL (Normal) Range: 12.0-16.0 RBC 3.74 {M/mm3} (Abnormal) Range: 4.2-5.4 WBC 5.3 K/mm3 (Normal) Range: 4.4-11.0 82-Vwi-588919:06 VIT D,25 [address] 36.2 ng/mL (Normal) Comments: COMMENTS: FAX RESULTS TO DR. BROOKS Range: 32.0-100.0 Comments: Recent studies consider the lower limit of 32.0 ng/mL to ritika threshold for optimal health.Armando VALLE. J Nutr. 2004;135(2):317-22.Performed at: [address] [id number] Director: Aline Call MD [id number]:25 LIVER Comments: COMMENTS: FAX RESULTS TO DR. SCANLON FAXED 12/25/09 [address]. Jossie BILI 0.10 mg/dL (Normal) Range: 0.00-0.30 ALB 3.3 g/dL (Abnormal) Range: 3.4-5.0 ALK P 60 U/L (Normal) Range: 50-136 ALT 22 U/L (Normal) Range: 12-78 AST 23 U/L (Normal) Range: 15-37 T BILI 0.40 mg/dL (Normal) Range: 0.00-1.00 T PROT 6.9 g/dL (Normal) Range: 6.4-8.2 09-Oiw-594951:35 BILAT SCRN DIGITAL & CAD Radiology Report See Note (Normal) Comments: Exam Number: [id number] MAMMOGRAM, BILATERAL SCREENING DIGITAL AND CAD HISTORYRoutine screening. Full field digital images were obtained in mediolateral oblique andcraniocaudal projections. CAD images w ere reviewed. A small metalmarker was placed on a mole which projects on the left. The current study is compared to the examinations of June, and May 14, 2006. There is moderately dense fibroglandular parenchyma present. There isno skin thickening or retraction, architectural distortion, or clusterof suspicious microcalcifications. There is no dominant mass orsignificant interval levy nge seen. The density seen against the chestwall in the left craniocaudal view is compatible with visualization ofpectoral muscle. If there is no suspicious palpable abnormality,followup mammogram in 1 year is recommended. IMPRESSIONThere is no radiographic evidence of malignancy identified. FINAL ASSESSMENTBenign findings. BIRADS Category 2. A letter regarding these results has been sent to the raf engel. This interpretation was rendered by a radiologist certified under theMammography Quality Standards Act of 1992 (MQSA). The mammograms werealso examined with computer-aided detection software (Frida macias, [employer] Reported By: GAUTAM NUNEZ M.D. 37-Dfu-[id number]:4 C-REACTIVE PROT 22.28 mg/L Range: 0.0-6.0 6 (Abnormal) Comments: Test performed using the Dimension C-Reactive ProteinExtended Range assay method. This assay meets the AHA/CDC 2003 recommendations fordetermining patients at high risk for cardiovasculardisease. Reference: High risk CRP >3.0 mg/L :46 CBCD,SMEAR DIFF BAND 2 % (Normal) Range: 0-5 CELLS COUNTED 100 (Normal) EOS 4 % (Normal) Range: 0-5 HCT 37.3 % (Normal) Range: 37-47 HGB 12.4 g/dL (Normal) Range: 12.0-16.0 LYMPH 26 % (Normal) Range: 19-41 MCH 32.0 pg (Normal) Range: 27.0-32.0 MCHC 33.4 g/dL (Normal) Range: 32-36 MCV 95.7 fL (Normal) Range: 81-99 MONOCYTE 2 % (Normal) Range: 0-10 PLT 435 K/mm3 (Normal) Range: 150-450 PLT EST SeeNote (Normal) Comments: Result: ADEQUATE RBC 3.89 {M/mm3} (Abnormal) Range: 4.2-5.4 RDW 13.9 % (Normal) Range: 11.6-14.6 RED CELL MORPH SeeNote {NORMAL} (Normal) Comments: Result: NORM C+C SEGS 66 % (Normal) Range: 47-70 WBC 11.1 K/mm3 (Abnormal) Range: 4.4-11.0 :46 COMP METABOLIC A/G 0.7 {RATIO} (Abnormal) Range: 0.9-2.4 ALB 3.3 g/dL (Abnormal) Range: 3.4-5.0 ALK P 69 U/L (Normal) Range: 50-136 ALT 27 U/L (Abnormal) Range: 30-65 AST 14 U/L (Abnormal) Range: 15-37 BUN 10 mg/dL (Normal) Range: 7-18 BUN/CRE 11.1 {RATIO} (Normal) Range: 10-20 CA 9.2 mg/dL (Normal) Range: 8.5-10.1 CL 96 mmol/L (Abnormal) Range: 98-107 CO2 29.4 mmol/L (Normal) Range: 21.0-32.0 CREAT,SERUM 0.9 mg/dL (Normal) Range: 0.6-1.0 GAP 7 (Normal) Range: 5-15 GLOB 4.5 g/dL (Abnormal) Range: 2.7-4.2 GLU 82 mg/dL (Normal) Range: 70-110 K 4.0 mmol/L (Normal) Range: 3.5-5.1 NA 132 mmol/L (Abnormal) Range: 136-145 T BILI 0.40 mg/dL (Normal) Range: 0.00-1.00 T PROT 7.8 g/dL (Normal) Range: 6.4-8.2 :46 ESR SED RATE 62 mm/h (Abnormal) Range: 0-30 :46 LIPID CHOL 135 mg/dL (Normal) Comments: <200 mg/dL Desirable 200-240 mg/dL Borderline >240 mg/dL High Risk HDL 46 mg/dL (Normal) Comments: Reference Range HDL <40 mg/dL Low HDL Cholesterol HDL >or= 60 mg/dL High HDL Cholesterol LDL 69 mg/dL (Normal) Range: 0-130 TRIG 100 mg/dL (Normal) Comments: Serum Triglycerides Reference Interval Normal <150 mg/dL Borderline high 150 - 199 mg/dL High 200 - 499 mg/dL Very High > or = 500 mg/dL VLDL 20 mg/dL (Normal) Range: 5-40 :46 MICROALB:CRE UR MALB:CREAT 51.2 {mg/g_CRE} (Abnormal) MICROALBUMIN,UR 57.7 mg/L (Normal) UR CREAT 112.6 mg/dL (Normal) :46 ROUTINE UA BILIRUBIN URINE SeeNote (Normal) Comments: Result: NEGATIVE CLARITY CLEAR (Normal) COLOR YELLOW (Normal) GLUCOSE, UR SeeNote (Normal) Comments: Result: NEGATIVE KETONE UR SeeNote mg/dL (Normal) Comments: Result: NEGATIVE LEUK ESTERASE TRACE (Abnormal) NITRITE UR SeeNote (Normal) Comments: Result: NEGATIVE OCCULT BLOOD-UR SeeNote (Normal) Comments: Result: NEGATIVE pH UR 7.0 (Normal) Range: 5.0-8.0 PROT DIPSTX SeeNote (Normal) Comments: Result: NEGATIVE SP.GR. DIPSTX <=1.005 (Normal) Range: 1.002-1.030 UROBILI 0.2 EU/dl (Normal) Range: 0.2 - 1.0 :46 TSH 1.83 {uIU/mL} (Normal) Range: 0.34-4.82 :46 UR CREAT 112.6 mg/dL (Normal) :45 C-REACTIVE PROT 8.99 mg/L (Abnormal) Range: 0.0-6.0 Comments: Test performed using the Dimension C-Reactive ProteinExtended Range assay method. This assay meets the AHA/CDC 2003 recommendations fordetermining patients at high risk for cardiovasculardisease. Reference: High risk CRP >3.0 mg/L :45 CBCD BAND 2 % (Normal) Range: 0-5 CELLS COUNTED 100 (Normal) EOS 1 % (Normal) Range: 0-5 HCT 38.5 % (Normal) Range: 37-47 HGB 13.1 g/dL (Normal) Range: 12.0-16.0 LYMPH 13 % (Abnormal) Range: 19-41 MCH 32.0 pg (Normal) Range: 27.0-32.0 MCHC 34.0 g/dL (Normal) Range: 32-36 MCV 94.1 fL (Normal) Range: 81-99 MONOCYTE 2 % (Normal) Range: 0-10 MPV 7.6 fL (Normal) Range: 6.5-12.0 NRBC,LH FLAGGED 0 % (Normal) Range: 0-5 PLT 359 K/mm3 (Normal) Range: 150-450 PLT EST SeeNote (Normal) Comments: Result: ADEQUATE RBC 4.09 {M/mm3} (Abnormal) Range: 4.2-5.4 RDW 13.7 % (Normal) Range: 11.6-14.6 RED CELL MORPH SeeNote {NORMAL} (Normal) Comments: Result: NORM C&C SEGS 82 % (Abnormal) Range: 47-70 WBC 14.0 K/mm3 (Abnormal) Range: 4.4-11.0 29-Ivy-404120:45 COMP METABOLIC A/G 0.8 {RATIO} (Abnormal) Range: 0.9-2.4 ALB 3.3 g/dL (Abnormal) Range: 3.4-5.0 ALK P 68 U/L (Normal) Range: 50-136 ALT 32 [iU]/L (Normal) Range: 30-65 AST 20 U/L (Normal) Range: 15-37 BUN 16 mg/dL (Normal) Range: 7-18 BUN/CRE 14.5 {RATIO} (Normal) Range: 10-20 CA 9.0 mg/dL (Normal) Range: 8.5-10.1 CL 99 mmol/L (Normal) Range: 98-107 CO2 28.7 mmol/L (Normal) Range: 22.0-29.0 CREAT,SERUM 1.1 mg/dL (Abnormal) Range: 0.6-1.0 GAP 7 (Normal) Range: 5-15 GLOB 4.2 g/dL (Abnormal) Range: 2.3-3.5 GLU 111 mg/dL (Abnormal) Range: 70-110 Comments: Fasting Glucose result from 110 to <126 mg/dL suggests IMPAIRED HOMEOSTASIS per A.D.A. criteria. K 4.0 mmol/L (Normal) Range: 3.5-5.1 NA 135 mmol/L (Abnormal) Range: 136-145 T BILI 0.34 mg/dL (Normal) Range: 0.00-1.00 T PROT 7.5 g/dL (Normal) Range: 6.4-8.2 :45 ESR SED RATE 31 mm/h (Abnormal) Range: 0-30 :49 C-REACTIVE PROT 1.44 mg/L (Normal) Range: 0.0-6.0 Comments: Test performed using the Dimension C-Reactive ProteinExtended Range assay method. This assay meets the AHA/CDC 2003 recommendations fordetermining patients at high risk for cardiovasculardisease. Reference: High risk CRP >3.0 mg/L :49 CBCD BASO% 0.4 % (Normal) Range: 0-1 EO% 3.2 % (Normal) Range: 0-5 HCT 35.4 % (Abnormal) Range: 37-47 HGB 11.8 g/dL (Abnormal) Range: 12.0-16.0 LY% 24.6 % (Normal) Range: 19-41 MCH 32.3 pg (Abnormal) Range: 27.0-32.0 MCHC 33.4 g/dL (Normal) Range: 32-36 MCV 96.6 fL (Normal) Range: 81-99 MONO% 7.3 % (Normal) Range: 0-10 MPV 7.0 fL (Normal) Range: 6.5-12.0 NEUT% 64.5 % (Normal) Range: 47-70 PLT 278 K/mm3 (Normal) Range: 150-450 RBC 3.67 {M/mm3} (Abnormal) Range: 4.2-5.4 RDW 14.4 % (Normal) Range: 11.6-14.6 WBC 8.1 K/mm3 (Normal) Range: 4.4-11.0 :49 COMP METABOLIC A/G 0.9 {RATIO} (Normal) Range: 0.9-2.4 ALB 3.3 g/dL (Abnormal) Range: 3.4-5.0 ALK P 60 U/L (Normal) Range: 50-136 ALT 30 [iU]/L (Normal) Range: 30-65 AST 20 U/L (Normal) Range: 15-37 BUN 11 mg/dL (Normal) Range: 7-18 BUN/CRE 12.2 {RATIO} (Normal) Range: 10-20 CA 8.3 mg/dL (Abnormal) Range: 8.5-10.1 CL 99 mmol/L (Normal) Range: 98-107 CO2 25.6 mmol/L (Normal) Range: 22.0-29.0 CREAT,SERUM 0.9 mg/dL (Normal) Range: 0.6-1.0 GAP 6 (Normal) Range: 5-15 GLOB 3.5 g/dL (Normal) Range: 2.3-3.5 GLU 98 mg/dL (Normal) Range: 70-110 K 4.1 mmol/L (Normal) Range: 3.5-5.1 NA 131 mmol/L (Abnormal) Range: 136-145 T BILI 0.42 mg/dL (Normal) Range: 0.00-1.00 T PROT 6.8 g/dL (Normal) Range: 6.4-8.2 :49 ESR SED RATE 22 mm/h (Normal) Range: 0-30 :25 [id number] ALBUMIN,UR 34.1 % (Normal) [id number],U 6.9 % (Normal) GCNGV-1-EDJS,U 12.4 % (Normal) BETA GLOB,U 33.3 % (Normal) GAMMA GLOB,U 13.3 % (Normal) M-SPIKE,U SeeNote (Normal) Comments: Result: Not Observed NOTE Comment (Normal) Comments: Protein electrophoresis scan will follow via mail orcourier.Performed At: [facility] [id number] [place], [place] [id number] PROTEIN,UR 1.9 mg/dL (Normal) Range: 0.0-15.0 :25 SPE [id number] A/G RATIO 1.1 (Normal) Range: 0.7-2.0 ALBUMIN 3.6 g/dL (Normal) Range: 3.2-5.6 ALPHA-1 GLOBUL 0.2 g/dL (Normal) Range: 0.1-0.4 ALPHA-2 GLOBUL 0.9 g/dL (Normal) Range: 0.4-1.2 BETA GLOBULIN 1.0 g/dL (Normal) Range: 0.6-1.3 GAMMA GLOBULIN 1.3 g/dL (Normal) Range: 0.5-1.6 GLOBULIN, TOTAL 3.4 g/dL (Normal) Range: 2.0-4.5 INTERPRETATION Comment (Normal) Comments: The SPE pattern appears essentially unremarkable. Evidenceof monoclonal protein is not apparent. M-SPIKE SeeNote (Normal) Comments: Result: Not Observed NOTE: Comment (Normal) Comments: Protein electrophoresis scan will follow via mail orcourier. PROTEIN,TOTAL 7.0 g/dL (Normal) Range: 6.0-8.5 [id number] C-REACTIVE PROT 6.26 mg/L (Abnormal) Range: 0.0-6.0 Comments: Test performed using the Dimension C-Reactive ProteinExtended Range assay method. This assay meets the AHA/CDC 2003 recommendations fordetermining patients at high risk for cardiovasculardisease. Reference: High risk CRP >3.0 mg/L [id number] CBCD BASO% 0.3 % (Normal) Range: 0-1 EO% 2.7 % (Normal) Range: 0-5 HCT 38.4 % (Normal) Range: 37-47 HGB 13.1 g/dL (Normal) Range: 12.0-16.0 LY% 23.7 % (Normal) Range: 19-41 MCH 32.8 pg (Abnormal) Range: 27.0-32.0 MCHC 34.0 g/dL (Normal) Range: 32-36 MCV 96.5 fL (Normal) Range: 81-99 MONO% 6.9 % (Normal) Range: 0-10 MPV 7.2 fL (Normal) Range: 6.5-12.0 NEUT% 66.4 % (Normal) Range: 47-70 PLT 403 K/mm3 (Normal) Range: 150-450 RBC 3.98 {M/mm3} (Abnormal) Range: 4.2-5.4 RDW 14.3 % (Normal) Range: 11.6-14.6 WBC 10.5 K/mm3 (Normal) Range: 4.4-11.0 :10 COMP METABOLIC A/G 0.8 {RATIO} (Abnormal) Range: 0.9-2.4 ALB 3.5 g/dL (Normal) Range: 3.4-5.0 ALK P 85 U/L (Normal) Range: 50-136 ALT 28 [iU]/L (Abnormal) Range: 30-65 AST 16 U/L (Normal) Range: 15-37 BUN 11 mg/dL (Normal) Range: 7-18 BUN/CRE 13.8 {RATIO} (Normal) Range: 10-20 CA 9.3 mg/dL (Normal) Range: 8.5-10.1 CL 97 mmol/L (Abnormal) Range: 98-107 CO2 29.8 mmol/L (Abnormal) Range: 22.0-29.0 CREAT,SERUM 0.8 mg/dL (Normal) Range: 0.6-1.0 GAP 7 (Normal) Range: 5-15 GLOB 4.3 g/dL (Abnormal) Range: 2.3-3.5 GLU 97 mg/dL (Normal) Range: 70-110 K 4.3 mmol/L (Normal) Range: 3.5-5.1 NA 134 mmol/L (Abnormal) Range: 136-145 T BILI 0.27 mg/dL (Normal) Range: 0.00-1.00 T PROT 7.8 g/dL (Normal) Range: 6.4-8.2 :10 ESR SED RATE 35 mm/h (Abnormal) Range: 0-30 :10 VIT D,25 [id number] 97.4 ng/mL (Normal) Range: 32.0-100.0 Comments: Recent studies consider the lower limit of 32.0 ng/mL to ritika threshold for optimal health.Armando VALLE. J Nutr. 2004;135(2):317-22.Performed At: [address] [id number] :25 C-REACTIVE PROT < 0.50 mg/L (Normal) Range: 0.0-6.0 Comments: Test performed using the Dimension C-Reactive ProteinExtended Range assay method. This assay meets the AHA/CDC 2003 recommendations fordetermining patients at high risk for cardiovasculardisease. Reference: High risk CRP >3.0 mg/L :25 CBCD BASO% 0.4 % (Normal) Range: 0-1 EO% 2.8 % (Normal) Range: 0-5 HCT 37.3 % (Normal) Range: 37-47 HGB 12.7 g/dL (Normal) Range: 12.0-16.0 LY% 28.9 % (Normal) Range: 19-41 MCH 33.0 pg (Abnormal) Range: 27.0-32.0 MCHC 34.1 g/dL (Normal) Range: 32-36 MCV 96.9 fL (Normal) Range: 81-99 MONO% 4.8 % (Normal) Range: 0-10 MPV 7.1 fL (Normal) Range: 6.5-12.0 NEUT% 63.1 % (Normal) Range: 47-70 PLT 300 K/mm3 (Normal) Range: 150-450 RBC 3.85 {M/mm3} (Abnormal) Range: 4.2-5.4 RDW 13.8 % (Normal) Range: 11.6-14.6 WBC 10.5 K/mm3 (Normal) Range: 4.4-11.0 62-Fxp-637249:25 COMP METABOLIC A/G 0.9 {RATIO} (Normal) Range: 0.9-2.4 ALB 3.2 g/dL (Abnormal) Range: 3.4-5.0 ALK P 65 U/L (Normal) Range: 50-136 ALT 29 [iU]/L (Abnormal) Range: 30-65 AST 17 U/L (Normal) Range: 15-37 BUN 12 mg/dL (Normal) Range: 7-18 BUN/CRE 13.3 {RATIO} (Normal) Range: 10-20 CA 8.9 mg/dL (Normal) Range: 8.5-10.1 CL 99 mmol/L (Normal) Range: 98-107 CO2 28.9 mmol/L (Normal) Range: 22.0-29.0 CREAT,SERUM 0.9 mg/dL (Normal) Range: 0.6-1.0 GAP 6 (Normal) Range: 5-15 GLOB 3.6 g/dL (Abnormal) Range: 2.3-3.5 GLU 120 mg/dL (Abnormal) Range: 70-110 Comments: Fasting Glucose result from 110 to <126 mg/dL suggests IMPAIRED HOMEOSTASIS per A.D.A. criteria. K 4.1 mmol/L (Normal) Range: 3.5-5.1 NA 134 mmol/L (Abnormal) Range: 136-145 T BILI 0.30 mg/dL (Normal) Range: 0.00-1.00 T PROT 6.8 g/dL (Normal) Range: 6.4-8.2 69-Gpc-247861:25 ESR SED RATE 12 mm/h (Normal) Range: 0-30 :50 C-REACTIVE PROT 1.02 mg/L (Normal) Comments: DR. LAMBERT GETS A BMP Range: 0.0-6.0 Comments: Test performed using the Dimension C-Reactive ProteinExtended Range assay method. This assay meets the AHA/CDC 2003 recommendations fordetermining patients at high risk for cardiovasculardisease. Reference: High risk CRP >3.0 mg/L :50 CBCD Comments: DR. LAMBERT GETS A BMP BASO% 0.5 % (Normal) Range: 0-1 EO% 4.1 % (Normal) Range: 0-5 HCT 38.0 % (Normal) Range: 37-47 HGB 13.2 g/dL (Normal) Range: 12.0-16.0 LY% 39.9 % (Normal) Range: 19-41 MCH 33.4 pg (Abnormal) Range: 27.0-32.0 MCHC 34.7 g/dL (Normal) Range: 32-36 MCV 96.3 fL (Normal) Range: 81-99 MONO% 11.3 % (Abnormal) Range: 0-10 MPV 7.1 fL (Normal) Range: 6.5-12.0 NEUT% 44.2 % (Abnormal) Range: 47-70 PLT 292 K/mm3 (Normal) Range: 150-450 RBC 3.94 {M/mm3} (Abnormal) Range: 4.2-5.4 RDW 13.6 % (Normal) Range: 11.6-14.6 WBC 6.4 K/mm3 (Normal) Range: 4.4-11.0 :50 COMP METABOLIC Comments: DR. LAMBERT GETS A BMP A/G 1.0 {RATIO} (Normal) Range: 0.9-2.4 ALB 3.6 g/dL (Normal) Range: 3.4-5.0 ALK P 52 U/L (Normal) Range: 50-136 ALT 38 [iU]/L (Normal) Range: 30-65 AST 20 U/L (Normal) Range: 15-37 BUN 16 mg/dL (Normal) Range: 7-18 BUN/CRE 20.0 {RATIO} (Normal) Range: 10-20 CA 9.0 mg/dL (Normal) Range: 8.5-10.1 CL 97 mmol/L (Abnormal) Range: 98-107 CO2 33.6 mmol/L (Abnormal) Range: 22.0-29.0 CREAT,SERUM 0.8 mg/dL (Normal) Range: 0.6-1.0 GAP 3 (Abnormal) Range: 5-15 GLOB 3.6 g/dL (Abnormal) Range: 2.3-3.5 GLU 85 mg/dL (Normal) Range: 70-110 K 4.3 mmol/L (Normal) Range: 3.5-5.1 NA 134 mmol/L (Abnormal) Range: 136-145 T BILI 0.49 mg/dL (Normal) Range: 0.00-1.00 T PROT 7.2 g/dL (Normal) Range: 6.4-8.2 :50 ESR Comments: DR. LAMBERT GETS A BMP SED RATE 15 mm/h (Normal) Range: 0-30 :50 VITD 99903 13.4 pg/mL (Abnormal) Comments: DR. LAMBERT GETS A BMP Range: 15.9-55.6 Comments: Performed At: [address] [id number] LYTES CL 101 mmol/L (Normal) Range: 98-107 CO2 29.1 mmol/L (Abnormal) Range: 22.0-29.0 GAP 6 (Normal) Range: 5-15 K 4.0 mmol/L (Normal) Range: 3.5-5.1 NA 136 mmol/L (Normal) Range: 136-145 :07 C-REACTIVE PROT < 0.50 mg/L (Normal) Range: 0.0-6.0 Comments: Test performed using the Dimension C-Reactive ProteinExtended Range assay method. This assay meets the AHA/CDC 2003 recommendations fordetermining patients at high risk for cardiovasculardisease. Reference: High risk CRP >3.0 mg/L 8-Eqr-197596:07 CBCD BASO% 0.6 % (Normal) Range: 0-1 EO% 3.0 % (Normal) Range: 0-5 HCT 38.0 % (Normal) Range: 37-47 HGB 13.0 g/dL (Normal) Range: 12.0-16.0 LY% 37.4 % (Normal) Range: 19-41 MCH 32.9 pg (Abnormal) Range: 27.0-32.0 MCHC 34.2 g/dL (Normal) Range: 32-36 MCV 96.3 fL (Normal) Range: 81-99 MONO% 6.9 % (Normal) Range: 0-10 MPV 7.2 fL (Normal) Range: 6.5-12.0 NEUT% 52.1 % (Normal) Range: 47-70 PLT 296 K/mm3 (Normal) Range: 150-450 RBC 3.94 {M/mm3} (Abnormal) Range: 4.2-5.4 RDW 13.5 % (Normal) Range: 11.6-14.6 WBC 7.6 K/mm3 (Normal) Range: 4.4-11.0 :07 COMP METABOLIC A/G 1.0 {RATIO} (Normal) Range: 0.9-2.4 ALB 3.6 g/dL (Normal) Range: 3.4-5.0 ALK P 58 U/L (Normal) Range: 50-136 ALT 29 [iU]/L (Abnormal) Range: 30-65 AST 17 U/L (Normal) Range: 15-37 BUN 11 mg/dL (Normal) Range: 7-18 BUN/CRE 12.2 {RATIO} (Normal) Range: 10-20 CA 9.3 mg/dL (Normal) Range: 8.5-10.1 CL 102 mmol/L (Normal) Range: 98-107 CO2 30.1 mmol/L (Abnormal) Range: 22.0-29.0 CREAT,SERUM 0.9 mg/dL (Normal) Range: 0.6-1.0 GAP 4 (Abnormal) Range: 5-15 GLOB 3.6 g/dL (Abnormal) Range: 2.3-3.5 GLU 128 mg/dL (Abnormal) Range: 70-110 Comments: Fasting Glucose result greater than or equal to 126 mg/dL suggests DIABETES MELLITUS per A.D.A. criteria. K 5.3 mmol/L (Abnormal) Range: 3.5-5.1 NA 136 mmol/L (Normal) Range: 136-145 T BILI 0.40 mg/dL (Normal) Range: 0.00-1.00 T PROT 7.2 g/dL (Normal) Range: 6.4-8.2 0-Hjt-561447:07 ESR SED RATE 13 mm/h (Normal) Range: 0-30 Plan of Care Name Dates Details Instructions Encounter for Medicare annual wellness exam : advance planning information Indication: Encounter for Medicare annual wellness exam Encounter for Medicare annual wellness exam : fall reduction handout Indication: Encounter for Medicare annual wellness exam Encounter for Medicare annual wellness exam : elderly packet given Indication: Encounter for Medicare annual wellness exam Crohn's disease, unspecified, without complications : Reviewed Microbiology Quality Control Technician Letter Indication: Crohn's disease, unspecified, without complications Rheumatoid arthritis : Reviewed Microbiology Quality Control Technician Letter Indication: Rheumatoid arthritis Benign essential hypertension : HTN/CAD Red Flags Indication: Benign essential hypertension Hypercholesterolemia : Cholesterol mgmt Indication: Hypercholesterolemia Benign essential hypertension : Eprescribed prescriptions (G8553) Indication: Benign essential hypertension Benign essential hypertension : HTN/CAD Red Flags Indication: Benign essential hypertension Hypercholesterolemia : Cholesterol mgmt Indication: Hypercholesterolemia Non-smoker : Eprescribed prescriptions (G8553) Indication: Non-smoker Benign essential hypertension : Follow up in 6 months Indication: Benign essential hypertension Rheumatoid arthritis : Reviewed Microbiology Quality Control Technician Letter Indication: Rheumatoid arthritis Crohn's disease, unspecified, without complications : Reviewed Microbiology Quality Control Technician Letter Indication: Crohn's disease, unspecified, without complications Hypercholesterolemia : Cholesterol mgmt Indication: Hypercholesterolemia Benign essential hypertension : HTN/CAD Red Flags Indication: Benign essential hypertension Breast cancer screening : Self breast exam Indication: Breast cancer screening Breast cancer screening : *Colon Cancer Screening Indication: Breast cancer screening Breast cancer screening : *Well Female Maintenance (KF) Indication: Breast cancer screening Encounter for Medicare annual wellness exam : Eprescribed prescriptions (G8553) Indication: Encounter for Medicare annual wellness exam Benign essential hypertension : Follow up in 1 year or as needed Indication: Benign essential hypertension Hypercholesterolemia : Cholesterol mgmt Indication: Hypercholesterolemia Rheumatoid arthritis : Reviewed Microbiology Quality Control Technician Letter Indication: Rheumatoid arthritis Benign essential hypertension : Eprescribed prescriptions (G8553) Indication: Benign essential hypertension Benign essential hypertension : Follow up in 6 months Indication: Benign essential hypertension Hypercholesterolemia : Cholesterol mgmt Indication: Hypercholesterolemia Benign essential hypertension : Reviewed Lab Indication: Benign essential hypertension Benign essential hypertension : HTN/CAD Red Flags Indication: Benign essential hypertension Benign essential hypertension : Follow up in 6 months Indication: Benign essential hypertension Benign essential hypertension : HTN/CAD Red Flags Indication: Benign essential hypertension Benign essential hypertension : Diet, Exercise, and Wt loss Indication: Benign essential hypertension Hypercholesterolemia : Cholesterol mgmt Indication: Hypercholesterolemia Hypercholesterolemia : *Cholesterol - Nonprescription Treatment Indication: Hypercholesterolemia Hypercholesterolemia : *Cholesterol - Medication Side Effects Indication: Hypercholesterolemia Osteoporosis : *Bisphosphonate Education Indication: Osteoporosis Osteoporosis : *Calcium Education (KF) Indication: Osteoporosis Screening for malignant neoplasm of cervix : Colon Cancer Screening Indication: Screening for malignant neoplasm of cervix Screening for malignant neoplasm of cervix : Well Female Maintenance (KF) Indication: Screening for malignant neoplasm of cervix Benign essential hypertension : Diet, Exercise, and Wt loss Indication: Benign essential hypertension Benign essential hypertension : HTN/CAD Red Flags Indication: Benign essential hypertension Hypercholesterolemia : CHOLESTEROL MGMT. Indication: Hypercholesterolemia Hypercholesterolemia : Cholesterol - Nonprescription Treatment Indication: Hypercholesterolemia Hypercholesterolemia : Cholesterol - Medication Side Effects Indication: Hypercholesterolemia Osteoporosis : Well Female Maintenance (KF) Indication: Osteoporosis Well woman exam : Pap/Pelvic/Bimanual/Rectal/Breast Exam was done. Indication: Well woman exam Well woman exam : Well Female Maintenance (KF) Indication: Well woman exam Planned Observations Cologuard - Strool Based DNA Test, CRC SCREEN ([id number])Indication: Colon cancer screening (Renamed from Encounter for screening for malignant neoplasm of colon) On: 3-Ccw-222862:57 Request URINALYSIS, W/ MICRO ([id number])Indication: Benign essential hypertension On: 5-Zlc-221999:53 Request MICROALBUMIN: CREATININE RATIO ([id number]) AND ([id number])Indication: Benign essential hypertension On: :53 Request CALCIFIDIOL ([id number]) VIT D 25Indication: Vitamin D deficiency, unspecified On: 4-Swi-152436:52 Request LIPOPROTEIN, BLD, BY NMR ([id number])Indication: Hypercholesterolemia On: :52 Request TSH ([id number])Indication: Hypercholesterolemia On: :24 Request URINALYSIS, W/ MICRO ([id number])Indication: Benign essential hypertension On: :24 Request MICROALBUMIN: CREATININE RATIO ([id number]) AND ([id number])Indication: Benign essential hypertension On: :24 Request LIPID PANEL ([id number])Indication: Hypercholesterolemia On: :24 Request Lipid Panel ([id number])Indication: Hypercholesterolemia On: 49-Tps-691531:52 Request HEPATIC FUNCTION PANEL ([id number])Indication: Hypercholesterolemia On: 20-Zqc-431320:52 Request LIPID PANEL ([id number])Indication: Hypercholesterolemia On: 65-Ksr-011225:13 Request TSH ([id number])Indication: Hypercholesterolemia On: 53-Agy-659659:13 Request URINALYSIS, W/ MICRO ([id number])Indication: Benign essential hypertension On: :13 Request MICROALBUMIN: CREATININE RATIO ([id number]) AND ([id number])Indication: Benign essential hypertension On: 89-Adk-583987:13 Request METABOLIC PANEL, COMPREHENSIVE ([id number])Indication: Benign essential hypertension On: 19-Sfm-493220:13 Request CBC W/AUTO DIFF WBC ([id number])Indication: Benign essential hypertension On: 97-Ovw-620493:13 Request CALCIFIDIOL (59762) VIT D 25Indication: Vitamin D deficiency, unspecified On: 54-Ady-585466:12 Request UPEP ([id number])Indication: Elevated blood protein On: :27 Request SPEP ([id number])Indication: Elevated blood protein On: :27 Request Lipid Panel ([id number])Indication: Hypercholesterolemia On: :14 Request MICROALBUMIN: CREATININE RATIO ([id number]) AND ([id number])Indication: Benign essential hypertension On: 95-Ydl-022546:14 Request TSH ([id number])Indication: Benign essential hypertension On: :14 Request CBC WITH MANUAL DIFF ([id number])Indication: Benign essential hypertension On: :13 Request Metabolic Panel, Comprehensive ([id number])Indication: Benign essential hypertension On: :13 Request URINALYSIS ([id number])Indication: Benign essential hypertension On: 40-Mff-085615:13 Request CALCIFEDIOL ([id number])Indication: Osteoporosis On: 17-Jqt-425430:12 Request Thin prep Pap ([id number])Indication: Well woman exam On: 8-Cwx-523808:49 Request Comments: swabbed vaginal lining Planned Procedures DEXA SCAN AXIAL SKELETON ([id number])By: On: 17-Jul-2018 Intent Sade Lambert DO, DO, Kathleen SCREENING DIGITAL TOMOSYNTHESIS OF On: 17-Jul-2018 Intent BREAST ([id number])By: Sade Lambert DO, DO, Kathleen X-RAY OF CERVICAL SPINE, TWO VIEWS On: 17-Jul-2018 Intent ([id number])By: Sade Lambert DO, DO, Kathleen ELECTROCARDIOGRAM, COMPLETE (ECG) On: 17-Jul-2018 Intent ([id number])By: Sade Lambert DO Comments: nsr no acute chg DO, Sade ELECTROCARDIOGRAM, COMPLETE (ECG) On: 07-Jun-2016 Intent ([id number])By: Sade Lambert DO Comments: sinus ventura no acute chg DO, Sade Pelvic and Breast, Medicare On: 07-Jun-2015 Intent ([id number])By: Sade Lambert DO, DO, Kathleen MAMMOGRAM, SCREENING, BOTH BREAST On: 07-Jun-2015 Intent ([id number])By: Sade Lambert DO, DO, Kathleen EKG ([id number])By: Sade Lambert DO On: 17-May-2015 Intent Sade Lambert DO Comments: nsr no acute chg EKG ([id number])By: Sade Lambert DO On: 29-Mar-2013 Intent Sade Lambert DO Comments: sinus ventura - first degree AV block -- no new chg EKG ([id number])By: Sade Lambert DO On: 25-Apr-2011 Intent Sade Lambert DO Comments: nsr no acute chg Pelvic and Breast, Medicare On: 26-May-2009 Intent ([id number])By: Renita Richardson LPN MAMMOGRAM, SCREENING, BOTH BREASTS On: 26-May-2009 Intent ([id number])By: Renita Richardson LPN EKG ([id number])By: Sade Lambert DO On: 31-Mar-2008 Intent Sade Lambert DO Comments: nsr no acute ischemic changes Instructions Name Dates Details Benign essential hypertension : How to access health information online Indication: Benign essential hypertension Benign essential hypertension : How to access health information online - Detail Indication: Benign essential hypertension Benign essential hypertension : Patient Instructions Indication: Benign essential hypertension Non-smoker : How to access health information online Indication: Non-smoker Non-smoker : How to access health information online - Detail Indication: Non-smoker Non-smoker : Patient Instructions Indication: Non-smoker Benign essential hypertension : Patient Instructions Indication: Benign essential hypertension Encounter for Medicare annual wellness exam : How to access health information online Indication: Encounter for Medicare annual wellness exam Encounter for Medicare annual wellness exam : How to access health information online - Detail Indication: Encounter for Medicare annual wellness exam Encounter for Medicare annual wellness exam : Patient Instructions Indication: Encounter for Medicare annual wellness exam Benign essential hypertension : How to access health information online Indication: Benign essential hypertension Benign essential hypertension : How to access health information online - Detail Indication: Benign essential hypertension Encounters Phone Encounter On: 11-Aug-2018 9:40 Encounter Diagnosis: Screening for colon cancer End: 11-Aug-2018 9:49 [facility] Visit On: 17-Jul-2018 11:32 Encounter Reason: Follow up tests - Date: (07/16/18 labs)., [ADDITIONAL REASON] Follow up for chronic medical issues - The patient feels well with minor complai End: 17-Jul-2018 15:34 nts, has good energy level and is sleeping well. Patient has been compliant with instructions. Current medication use: no side effects and compliant with dosing regimen. Patient sleeps 8 hours per night . Nutrition: balanced diet and supplemental vitamins. The medical issues the patient is following up for include All identified problems below and osteoporosis/osteopenia. blood pressure range : and weight :. , [ADDITIONAL REASON] Annual Medicare Exam - The patient had reviewed and updated the family history, medication/s, past medical history and social history. No the patient did not have a mini mental sta tus exam done today. The patient would like education and information on meals and exercise programs. The activities of daily living the patient needs help with are none. The patient has driven in past 6 months. The patient has completed the following preventative measures: colonoscopy. Other providers contributing to the patient's care are formula maker. Encounter Diagnosis: Benign essential hypertension (401.1), BMI 22.0-22.9, adult, Non-smoker , Need for prophylactic vaccination and inoculation against influenza (Renamed from Need for immunization against influenza), Influenza vaccination declined (Renamed from Refused influenza vaccine), Cervical radiculopathy, Vitamin D deficiency, unspecified, Crohn's disease, unspecified, without complications, Hypercholesterolemia, Rheumatoid arthritis (714.0), Acne rosacea, papular type, Encounter for Medicare annual wellness exam, Encounter for screening mammogram for breast cancer (Renamed from Encounter for screening mammogram for malignant neoplasm of breast), Colon cancer screening (Renamed from Encounter for screening for malignant neoplasm of colon), Postmenopausal (Renamed from Postmenopausal status) [facility] Office Visit On: 04-Jun-2017 11:21 Encounter Reason: Follow up for chronic medical issues - The patient feels well with minor complaints, has good energy level and is sleeping well. Patient has been compliant with instructions. Current medication use: no End: 04-Jun-2017 14:05 side effects and compliant with dosing regimen. Patient sleeps 8 hours per night. Nutrition: balanced diet and supplemental vitamins. The medical issues the patient is following up for include All ident ified problems below, high blood pressure and high cholesterol. blood pressure range : and weight :.Encounter Diagnosis: BMI 22.0-22.9, adult, Non-smoker, Hypercholesterolemia, Benign essential hypertension (401.1), Mitral valve prolapse, Rheumatoid arthritis (714.0), Vitamin D deficiency, unspecified, Crohn's disease, unspecified, without complications, Acne rosacea, papular type [facility] Phone Encounter On: 12-Aug-2016 16:51 Encounter Diagnosis: Hypercholesterolemia End: 12-Aug-2016 16:52 [facility] Office Visit On: 07-Jun-2016 14:52 Encounter Reason: Follow up for chronic medical issues - The patient feels well with minor complaints, has good energy level and is sleeping well. Patient has been compliant with instructions. Current medication use: no End: 07-Jun-2016 17:18 side effects and compliant with dosing regimen. Patient sleeps 8 hours per night. Nutrition: balanced diet and supplemental vitamins. The medical issues the patient is following up for include All ident ified problems below, high blood pressure and high cholesterol. blood pressure range : and weight :.Encounter Diagnosis: Benign essential hypertension (401.1), Hypercholesterolemia, Crohn's disease, unspecified, without complications, Vitamin D deficiency, unspecified, Rheumatoid arthritis (714.0), Mitral valve prolapse, Osteoporosis, Acne rosacea, papular type [facility] Office Visit On: 07-Jun-2015 13:22 Encounter Reason: Annual Medicare Exam - The patient had reviewed and updated the family history, medication/s, past medical history and social history. Yes the patient did have ( alert) a mini mental status exam do End: 07-Jun-2015 14:53 ne today. The activities of daily living the patient needs help with are none. The patient has driven in past 6 months, but the patient has not had fecal incontinence, had urinary incontinence, missed o r ran out of medications to soon, fallen in the past 6 months, gotten lost, has a medalert necklace or bracelet, put area rugs through house or put handrails in bathroom. The patient has completed the [facility] express preventative measures: PAP smear (unsure), mammography (unsure) and colonoscopy (Dr. Wesley 2012). The patient does have durable power of erisa attorney and living will. The patient has noticed lack of energy. Other providers contributing to the patient's care are social studies department chair (Dr. Rudolph), gastrologist (Dr. Wesley) and formula maker (Dr. Boroks).Encounter Diagnosis: Annual Medicare Physical (V70.0), Breast cancer screening [facility] Phone Encounter On: 25-May-2015 14:26 Encounter Diagnosis: Elevated blood protein End: 25-May-2015 14:28 [facility] Office Visit On: 17-May-2015 13:22 Encounter Reason: Follow up for chronic medical issues - The patient feels well with minor complaints, has good energy level and is sleeping well. Patient has been compliant with instructions. Current medication use: no End: 17-May-2015 17:07 side effects and compliant with dosing regimen. Patient sleeps 8 hours per night. Nutrition: balanced diet and supplemental vitamins. The medical issues the patient is following up for include All ident ified problems below, high blood pressure and high cholesterol. blood pressure range : and weight :.Encounter Diagnosis: Benign essential hypertension (401.1), Hypercholesterolemia (272.0), Osteoporosis (733.00), Rheumatoid arthritis (714.0), Mitral Valve Prolapse (746.9), DEFICIENCY, VITAMIN D NOS (268.9) [facility] Phone Encounter On: 26-Apr-2015 17:12 Encounter Diagnosis: Benign essential hypertension (401.1), Hypercholesterolemia (272.0), Osteoporosis (733.00) End: 26-Apr-2015 17:14 [facility] Phone Encounter On: 27-Oct-2014 15:40 Encounter Diagnosis: Hypercholesterolemia (272.0) End: 27-Oct-2014 15:41 [facility] Office Visit On: 29-Mar-2013 16:19 Encounter Reason: Follow up for chronic medical issues - The patient feels well with minor complaints, has good energy level and is sleeping well. Patient has been compliant with instructions. Current medication use: no End: 29-Mar-2013 17:28 side effects and compliant with dosing regimen. Patient sleeps 8 hours per night. Nutrition: balanced diet and supplemental vitamins. The medical issues the patient is following up for include All ident ified problems below, high blood pressure, high cholesterol and osteoporosis/osteopenia. blood pressure range : and weight :.Encounter Diagnosis: Osteoporosis (733.00), Hypercholesterolemia (272.0), Rheumatoid arthritis (714.0), Benign essential hypertension (401.1) [facility] Office Visit On: 25-Apr-2011 12:52 Encounter Reason: Follow up for chronic medical issues - The patient feels well with minor complaints, has good energy level and is sleeping well. Patient has been compliant with instructions. Current medication use: no End: 25-Apr-2011 15:33 side effects and compliant with dosing regimen. Patient sleeps 7 hours per night. Nutrition: balanced diet and supplemental vitamins. The medical issues the patient is following up for include All ident ified problems below, high blood pressure and high cholesterol. blood pressure range : and weight :.Encounter Diagnosis: Benign essential hypertension (401.1), Osteoporosis (733.00), Hypercholesterolemia (272.0), Rheumatoid arthritis (714.0), Regional enteritis of unspecified site (555.9), DEFICIENCY, VITAMIN D NOS (268.9) [facility] Office Visit On: 26-May-2009 13:20 Encounter Reason: Well Women Exam - The patient feels well with minor complaints ,has good energy level and is sleeping well. Pap smear: date of last pap: (3 years). Contraceptive history: The patient is not using any me End: 26-May-2009 13:55 thod of contraception at this time. Patient exercises a weekly. The patient reports that she performs monthly self breast exam. Previous evaluations: hysterectomy/bilateral salpingotomy. The patient den ies the use of oral contraceptives or hormone replacement therapy. Encounter Diagnosis: Well Woman Exam , Medicare (V76.2) [facility] Office Visit On: 31-Mar-2008 14:34 Encounter Reason: Follow up for chronic medical issues - The patient feels well with minor complaints ,has decreased energy level and is sleeping well. Patient has been compliant with instructions. Current medication use End: 31-Mar-2008 15:39 : no side effects and compliant with dosing regimen. Patient sleeps 7 hours per night. Nutrition: balanced diet and supplemental vitamins. The medical issues the patient is following up for include All identified problems below ,high blood pressure and high cholesterol. Encounter Diagnosis: Benign essential hypertension (401.1), Osteoporosis (733.00), Hypercholesterolemia (272.0), Rheumatoid arthritis (714.0), Mitral Valve Prolapse (746.9), Rosacea (695.3) [facility] Historical Summary On: 02-Sep-2007 8:03 [facility] End: 02-Sep-2007 8:03 Office Visit On: 03-Oct-2006 11:08 Encounter Reason: Follow up, Laboratory Test Results - Date: (09-17). Current symptoms/reason for visit include/s Follow up visit with no current symptoms. There is a family history of cardiovascular disease. Past medica End: 03-Oct-2006 12:13 l history includes cardiovascular disease ,elevated cholesterol ,elevated triglycerides ,hypertension and other (RA, crohn's disease ). , [ADDITIONAL REASON] Follow up Hypertension - blood pressure range : (165/80). Encounter Diagnosis: Hypertension (401.0), Abnormal blood chemistry (790.6) [facility] Office Visit On: 15-Sep-2006 13:15 Encounter Reason: Well Women Exam - The patient feels well with no complaints ,has good energy level and is sleeping well. Contraceptive history: The patient is not using any method of contraception at this time. Patient End: 15-Sep-2006 13:56 exercises 3 - 4 times per week (walking). The patient's libido is normal. The patient reports that she performs monthly self breast exam. Previous evaluations: hysterectomy (total). Menstruation: Last menstrual period date: (12 yrs ago). Encounter Diagnosis: Well Woman Exam (V72.31) (Pap,Mammo,Routine Female) [facility] Historical Summary On: 11-Sep-2006 7:33 [facility] End: 11-Sep-2006 7:46 Payers Medicare[employer] supplement Heydi lim guarantor
--- OUTSIDE RECORDS SUMMARY | 2018-11-05 19:58 | XMS RPT_ITS | Continuity of Care Document ---
:1940 Author Organization [facility] Address [address] [facility] [address] [place] [address] Phone Care Team Providers Name Role Phone Sade Lambert DO Unavailable [facility] Unavailable MARCIA Richardson Unavailable Unavailable Unavailable Unavailable Problems Name Dates [...] Rosacea (L71.9, 695.3) Comments: Acne Status: Active Unspecified Diagnosis Status: Active Vitamin [...] Procedure Dates Details TDAP VACCINE >7 IM (45520) Date: 07-Jun-2015 Completed 07-Jun-2015 Comments: GIVEN 06/07/2015 , DELL Date Value Details 23-Jul-2018 Inital Evaluation (1) - PT Result: Comments: See Note; NOTES: [facility] [facility]. [address] [place] [address] Fax REHABILITATION SERVICES INITIAL EVALUATION MR#: [id number] Acct: [id number] Name: TRES GONZALEZ Rep #: [id number] : 1940 78 From: Lesli Andrews DPT Referring Dr.: Sade Lambert DO Status: REG RCR Insurance: MEDICARE PART A B [facility] INS DC Patient's Visit Information TRES GONZALEZ is a [...] to maintain strength. Very active, volunteering at [employer]. - Objective Gait: WFL. Posture: rounded shoulders, [...] to be FAXED BACK to us at [phone] for Medicar e purposes. Please let me [...] 3 Views Result: Comments: See Note; NOTES: [facility] Imaging Services [address] [place] [address] Cerv Spine 2 or 3 Views MR#: [id number] Acct: [id number] Name: TRES GONZALEZ Rep #: [id number] : 1940 F 78 From: Nafisa Lovett MD PCP: Sade Lambert DO Status: REG CLI Study: Cerv Spine 2 or 3 Views Date of Exam: 07/17/18 Exam# [id number] Ordering Dr: Sade Lambert DO STUDY: X-RAY [...] Service support , CC: Sade Lambert DO Cheese Supervisor: Signed 11-Jun-2017 Knee 4 or More Views Result: Comments: See Note; NOTES: [facility] Imaging Services [address] [place] [address] Knee 4 or More Views MR#: [id number] Acct: [id number] Name: TRES GONZALEZ Rep #: [id number] : 1940 F 77 From: Rodney Patten MD PCP: Sade Lambert DO Status: REG CLI Study: Knee 4 or More Views Date of Exam: 06/11/17 Exam# [id number] Ordering Dr: Danette Brooks MD STUDY: X-RAY [...] CC: Sade Lambert DO; Danette Brooks MD Cheese Supervisor: Signed 11-Jun-2017 Knee 4 or More Views Result: Comments: See Note; NOTES: [facility] Imaging Services [address] [place] [address] Knee 4 or More Views MR#: [id number] Acct: [id number] Name: TRES GONZALEZ Rep #: [id number] : 1940 F 77 From: Rodney Patten MD PCP: Sade Lambert DO Status: REG CLI Study: Knee 4 or More Views Date of Exam: 06/11/17 Exam# [id number] Ordering Dr: Danette Brooks MD STUDY: X-RAY [...] CC: Sade Lambert DO; Danette Brooks MD Cheese Supervisor: Signed 24-Jul-2015 Bilat Scrn Digital AND CAD Result: Comments: See Note; NOTES: [facility] Imaging Services [address] [place] [address] Breast Imaging Report MR#: [id number] Acct: [id number] Name: TRES GONZALEZ Rep #: [id number] : 1940 F 75 From: Bartolo Knight MD PCP: Sade Lambert DO Status: REG CLI Study: Bilat Scrn Digital AND CAD Date of Exam: 07/24/15 Exam# [id number] Ordering Dr: Kiley Lambert DO MAMMOGRAPHY - [...] Bartolo Knight MD at 16:14 EDT Tel [phone], Service support [phone], CC: Sade Lambert DO Cheese Supervisor: Signed Immunization Name Dates Details Tdap (7 [...] kg/m2 Body Surface Area Calculated 1.66 m2 2-Cmn-887118:24 Pulse 65 /min Comments: Pattern: Regular Respiration [...] Calculated 1.63 m2 Head Circumference 0.00 cm :08 Temperature 98.6 f Comments: Method: Oral Pulse 70 /min Comments: Pattern: Regular Respiration Rate 20 /min Comments: Pattern: Unlabored BP Systolic 104 mm[Hg] Comments: Patient Position: Sitting; Cuff Location: Left Arm; Cuff Size: Standard BP Diastolic 76 mm[Hg] Comments: Patient Position: Sitting; Cuff Location: Left Arm; Cuff Size: Standard Weight 140 lb Height 0 in Head Circumference 0.00 cm 8-Ehh-591011:18 Temperature 97.5 f Comments: Method: Oral Pulse [...] 0.00 cm Results Date Description Value Details 5-Nnn-785088:45 CBC W/Diff, Automated Comments: [facility] [address] [place], [place], [phone] Absolute Lymph 2.37 {X10_3/ul} (Normal) Range: 0.83-4.51 [...] 4.2-5.4 WBC 8.8 K/mm3 (Normal) Range: 4.4-11.0 6-Neb-122537:45 Comprehensive Metabolic Profil Comments: [facility] [address] [place], [address] GAP 6 (Normal) Range: 5-15 CO2 28.0 [...] A.D.A. criteria.Please note revised GLUCOSE reference range pfxeefsxf50/02/2018. 83-Huy-647497:55 CBC W/Diff, Automated Comments: [facility] [address] [place], [address] Absolute Lymph 2.42 {X10_3/ul} (Normal) Range: 0.83-4.51 [...] 4.2-5.4 WBC 8.1 K/mm3 (Normal) Range: 4.4-11.0 39-Wrt-205745:55 Comprehensive Metabolic Profil Comments: [facility] [address] [place], [place], [address] GAP 8 (Normal) Range: 5-15 CO2 28.0 [...] Comments: Please note revised GLUCOSE reference range hppanwcof29/02/2018. 97-Mmb-109776:50 CBC W/Diff, Automated Comments: [facility] [address] [place], [place], [address] Absolute Lymph 2.42 {X10_3/ul} (Normal) Range: 0.83-4.51 [...] 4.2-5.4 WBC 9.1 K/mm3 (Normal) Range: 4.4-11.0 17-Glt-548257:50 Comprehensive Metabolic Profil Comments: [facility] [address] [place], [place], [address] GAP 8 (Normal) Range: 5-15 CO2 27.0 mmol/L (Normal) Range: 21.0-32.0 CL 100 mmol/L (Normal) Range: 98-107 K 4.1 mmol/L (Normal) Range: 3.5-5.1 NA 135 mmol/L (Abnormal) Range: 136-145 T BILI 0.40 mg/dL (Normal) Range: 0.20-1.00 ALT 29 U/L (Normal) Range: 13-56 Comments: Please note revised ALT reference range osqpbmyrz05/28/2018. ALK P 80 U/L (Normal) Range: 45-117 [...] Comments: Please note revised GLUCOSE reference range smqdzunib75/02/2018. 5-Cpn-052172:10 CBC W/Diff, Automated Comments: [facility] [address] [place], [address] Absolute Lymph 1.59 {X10_3/ul} (Normal) Range: 0.83-4.51 [...] 4.2-5.4 WBC 7.8 K/mm3 (Normal) Range: 4.4-11.0 1-Ifj-689120:10 Comprehensive Metabolic Profil Comments: [facility] [address] [place], [place], [address] GAP 7 (Normal) Range: 5-15 CO2 28.0 [...] (Normal) Range: 70-110 :18 Lipid Profile Comments: [facility] [address] [place], [address] VLDL 19 mg/dL (Normal) Range: 5-40 LDL [...] High Risk :18 Microalb:Creat Ratio,Random UR Comments: [facility] [address] [place], [address] MALB:CREAT 13.0 {mg/g_CRE} (Normal) MICROALBUMIN,UR 5.4 mg/L (Normal) UR CREAT 41.90 mg/dL (Normal) :18 Thyroid Stim Hormone (TSH) Comments: [facility] [address] [place], [address] TSH 3.08 {uIU/mL} (Normal) Range: 0.358-3.74 :18 Urinalysis, Complete Comments: How was Urine Obtained? CLEAN [facility] [address] [place], [address] MUCUS, URINE 0 SEEN {/hpf} [...] (Normal) CLARITY Clear (Normal) COLOR Yellow (Normal) 81-Lsr-828035:30 CBC W/Diff, Automated Comments: [facility] [address] [place], [address] Absolute Lymph 2.22 {X10_3/ul} (Normal) Range: 0.83-4.51 [...] 4.2-5.4 WBC 9.3 K/mm3 (Normal) Range: 4.4-11.0 94-Lrf-361474:30 Comprehensive Metabolic Profil Comments: [facility] [address] [place], [address] GAP 5 (Normal) Range: 5-15 CO2 28.0 [...] Range: 70-110 :37 CBC W/Diff, Automated Comments: [facility] [address] [place], [place], [phone] Absolute Lymph 2.58 {X10_3/ul} (Normal) Range: 0.83-4.51 [...] Range: 4.4-11.0 :37 Comprehensive Metabolic Profil Comments: [facility] [address] [place], [place], [address] GAP 9 (Normal) Range: 5-15 CO2 27.0 [...] 7-18 GLU 94 mg/dL (Normal) Range: 70-110 77-Nzw-685414:37 CRP Comments: [facility] [address] [place], [place], [phone] C-REACTIVE PROT < 2.90 mg/L (Normal) Range: 0.0-3.0 Comments: C-Reactive Protein (CRP) provides useful information for thediagnosis, therapy and monitoring of inflammatory processesand associated diseases. For the evaluation of Relative Riskfor Cardiovascular Dise ase, a High Sensitivity CRP (HSCRP)should be ordered. 56-Bsc-372160:37 Erythrocyte Sed Rate Comments: [facility] [address] [place], [place], [phone] SED RATE 24 mm/h (Normal) Range: 0-30 58-Tlc-510246:40 CBC W/Diff, Automated Comments: Comments: send results to Dr. Brooks and Dr. LambertComments: send results to Dr. Brooks and Dr. Sharifdavid [facility] [address] [place], [address] Absolute Lymph 2.36 {X10_3/ul} (Normal) Range: [...] 4.2-5.4 WBC 8.1 K/mm3 (Normal) Range: 4.4-11.0 17-Akk-430404:40 Comprehensive Metabolic Profil Comments: Comments: send results to Dr. Brooks and Dr. Sharifdavid [facility] [address] [place], [address] GAP 7 (Normal) Range: 5-15 CO2 27.0 [...] 7-18 GLU 107 mg/dL (Normal) Range: 70-110 22-Duo-19396:26 CBC W/Diff, Automated Comments: ORDERED: CBCD, CMP ORDERED: VITD, TSH, CBCD, LIPID, CMP, CAROLYN, [facility] [address] [facility] [address] [place], [place], [address] Absolute Lymph 2.36 {X10_3/ul} (Normal) Range: 0.83-4.51 [...] 4.2-5.4 WBC 6.7 K/mm3 (Normal) Range: 4.4-11.0 05-Hsn-97774:26 Comprehensive Metabolic Profil Comments: ORDERED: CBCD, CMPDRBENIGNO ORDERED: VITD, TSH, CBCD, LIPID, CMP, CAROLYN, [facility] [address] [place], [address] GAP 6 (Normal) Range: 5-15 CO2 26.0 [...] 7-18 GLU 96 mg/dL (Normal) Range: 70-110 :26 Lipid Profile Comments: ORDERED: CBCD, CMP ORDERED: VITD, TSH, CBCD, LIPID, CMP, CAROLYN, [facility] [address] [place], [place], [address] VLDL 18 mg/dL (Normal) Range: 5-40 LDL [...] ORDERED: VITD, TSH, CBCD, LIPID, CMP, CAROLYN, [facility] [address] [place], [address] MALB:CREAT 20.7 {mg/g_CRE} (Normal) MICROALBUMIN,UR 5.0 mg/L (Normal) UR CREAT 24.40 mg/dL (Normal) :26 Thyroid Stim Hormone (TSH) Comments: ORDERED: CBCD, CMP ORDERED: VITD, TSH, CBCD, LIPID, CMP, CAROLYN, [facility] [address] [place], [address] TSH 1.90 {uIU/mL} (Normal) Range: 0.358-3.74 :26 Urinalysis, Complete Comments: ORDERED: CBCD, COLEEN ORDERED: VITD, TSH, CBCD, LIPID, CMP, CAROLYN, UACHow was Urine Obtained? CLEAN [facility] [address] [place], [place], [address] MUCUS, URINE 0 SEEN [...] (Normal) CLARITY Clear (Normal) COLOR Yellow (Normal) :26 Vitamin D,25 Hydroxy Comments: ORDERED: CBCD, CMPDR.PETRA ORDERED: VITD, TSH, CBCD, LIPID, CMP, CAROLYN, [facility] [address] [place], [phone] Vitamin D 25-OH 31.1 ng/mL (Normal) Comments: Vitamin D 25(OH) Status Range Deficiency <20 ng/mL (50nmol/L) Insuffciency 20 - 30 ng/mL (50 - 75 nmol/L) Sufficiency 30 - 100 ng/mL (75 - 250 nmol/L) Toxicity >100 ng/mL (>250 nmol/L) 9-Yca-640965:45 CBC W/Diff, Automated Comments: [facility] [address] [place], [address] Absolute Lymph 2.26 {X10_3/ul} (Normal) Range: 0.83-4.51 [...] 4.2-5.4 WBC 8.3 K/mm3 (Normal) Range: 4.4-11.0 :45 Comprehensive Metabolic Profil Comments: [facility] [address] [place], [place], [address] GAP 5 (Normal) Range: 5-15 CO2 28.0 [...] <126 mg/dLsuggests IMPAIRED HOMEOSTASIS per A.D.A. criteria. 30-Mte-624043:41 CBC W/Diff, Automated Comments: [facility] [address] [place], [place], [address] Absolute Lymph 2.16 {X10_3/ul} (Normal) Range: 0.83-4.51 [...] 4.2-5.4 WBC 7.8 K/mm3 (Normal) Range: 4.4-11.0 42-Izy-574047:41 CCP IgG Antibodies Comments: [facility] (refer to report for specific site)refer to report for address and phone number ANTI-CCP [id number] > 250 {units} (Abnormal) Range: 0-19 Comments: Negative <20 Weak positive 20 - 39 Moderate positive 40 - 59 Strong positive >59Performed at: - [facility] [address] [id number] Director: Nato Abbasi MD, Phone: [phone] 01-Ssv-039196:41 Comprehensive Metabolic Profil Comments: [facility] [address] [place], [address] GAP 6 (Normal) Range: 5-15 CO2 29.0 [...] 7-18 GLU 80 mg/dL (Normal) Range: 70-110 44-Tyg-072993:41 Rheumatoid Factor Comments: [facility] [address] [place], [address] RHEUMATOID FAC 92.0 {IU/mL} (Abnormal) 91-Row-841853:10 CBC W/Diff, Automated Comments: [facility] [address] [place], [address] ; ordered by Cecilia Absolute [...] 4.2-5.4 WBC 6.2 K/mm3 (Normal) Range: 4.4-11.0 78-Pud-040912:10 Comprehensive Metabolic Profil Comments: [facility] [address] [place], [address] GAP 3 (Abnormal) Range: 5-15 CO2 31.0 [...] 7-18 GLU 77 mg/dL (Normal) Range: 70-110 16-Vxl-000718:50 FECAL OCCULT- Tubes sent home (22872) FECAL OCCULT HGB ASSAY, QUAL, 1-3 SIMULTANEOU negative (Normal) :08 Protein Electro.Ur-Random Comments: Test performed at:[facility] [address] [place], [place] [address] NOTE Comment (Normal) Comments: Protein electrophoresis scan will follow via computer,mail, or window maker delivery.Performed at: - [facility] [id number] Director: Michael Steven PhD, Phone: [phone] M-SPIKE,U (Normal) Comments: Not Observed GAMMA GLOB,U 18.6 % (Normal) BETA GLOB,U 26.5 % (Normal) LPZCR-0-ASPG,U 19.4 % (Normal) BOAWF-1-EGAL,U 5.4 % (Normal) ALBUMIN,UR 30.0 % (Normal) PROTEIN,UR < 4.0 mg/dL (Normal) Range: 0.0-15.0 Comments: Verified by repeat analysis 48-Nfn-705152:08 Protein Electroph, S Comments: Test performed at:[facility] [address] [place] [address] NOTE: Comment (Normal) Comments: The SPE pattern appears essentially unremarkable. Evidenceof monoclonal protein is not apparent. INTERPRETATION Comment (Normal) Comments: Protein electrophoresis scan will follow via computer,mail, or window maker delivery. A/G RATIO 1.3 (Normal) Range: 0.7-2.0 GLOBULIN, TOTAL 2.7 g/dL (Normal) Range: 2.0-4.5 M-SPIKE (Normal) Comments: Not Observed GAMMA GLOBULIN 1.0 g/dL (Normal) Range: 0.5-1.6 BETA GLOBULIN 0.9 g/dL (Normal) Range: 0.6-1.3 ALPHA-2 GLOBUL 0.7 g/dL (Normal) Range: 0.4-1.2 ALPHA-1 GLOBUL 0.2 g/dL (Normal) Range: 0.1-0.4 ALBUMIN 3.5 g/dL (Normal) Range: 3.2-5.6 PROTEIN,TOTAL 6.2 g/dL (Normal) Range: 6.0-8.5 :00 CBC W/Diff, Automated Comments: Test performed at:[facility] [address] [place] [address] Absolute Lymph 2.28 {X10_3/ul} (Normal) [...] 4.2-5.4 WBC 7.1 K/mm3 (Normal) Range: 4.4-11.0 08-Uui-88075:00 Comprehensive Metabolic Profil Comments: Test performed at:[facility] [address] [place] [address] GAP 7 (Normal) Range: 5-15 CO2 28.0 [...] Comments: Please note revised CREATININE reference range alarobtmu61/22/2015. BUN 10 mg/dL (Normal) Range: 7-18 GLU 93 mg/dL (Normal) Range: 70-110 :00 Lipid Profile Comments: Test performed at:[facility] [address] [place] [address] VLDL 24 mg/dL (Normal) Range: 5-40 LDL [...] :00 Microalb:Creat Ratio,Random UR Comments: Test performed at:[facility] [address] [place] [address] MALB:CREAT 12.0 {mg/g_CRE} (Normal) MICROALBUMIN,UR 9.5 mg/L (Normal) UR CREAT 75.80 mg/dL (Normal) :00 Thyroid Stim Hormone (TSH) Comments: Test performed at:[facility] [address] [place] [address] TSH 2.01 {uIU/mL} (Normal) Range: 0.358-3.74 :00 Urinalysis, Routine (Dipstick) Comments: How was Urine Obtained? CLEAN CATCHTest performed at:[facility] [address] [place] [address] LEUK ESTERASE 500 /ul (Abnormal) OCCULT BLOOD-UR 10 /ul (Abnormal) NITRITE UR Negative (Normal) UROBILI Normal mg/dL (Normal) PROT DIPSTX Negative mg/dL (Normal) pH UR 8.0 (Normal) Range: 5.0 - 8.0 SP.GR. DIPSTX 1.010 (Normal) Range: 1.002-1.030 KETONE UR Negative mg/dL (Normal) BILIRUBIN URINE Negative mg/dL (Normal) GLUCOSE, UR Normal mg/dL (Normal) CLARITY Sl. Cloudy (Normal) COLOR Yellow (Normal) 12-Wli-79001:00 Vitamin D,25 Hydroxy Comments: Test performed at:[facility] [address] [place] [address] Vitamin D 25-OH 33.5 ng/mL (Normal) Comments: Vitamin D 25(OH) Status Range Deficiency <20 ng/mL (50nmol/L) Insuffciency 20 - 30 ng/mL (50 - 75 nmol/L) Sufficiency 30 - 100 ng/mL (75 - 250 nmol/L) Toxicity >100 ng/mL (>250 nmol/L) 52-Kfn-140204:00 CBCD ABSOLUTE NEUT 5.3 3/uL (Normal) Range: [...] 11.6-14.6 WBC 7.3 K/mm3 (Normal) Range: 4.4-11.0 74-Cpf-386694:00 COMP METABOLIC A/G 0.9 {RATIO} (Normal) Range: [...] 7-18 GLU 95 mg/dL (Normal) Range: 70-110 5-Zqd-754037:10 CBCD Comments: COMMENTS: FAX RESULTS TO DR [...] 4.2-5.4 WBC 5.6 K/mm3 (Normal) Range: 4.4-11.0 8-Cws-516632:10 COMP METABOLIC Comments: COMMENTS: FAX RESULTS TO [...] (Normal) GLU 58 mg/dL (Abnormal) Range: 70-110 95-Ssk-556863:06 CBCD Comments: COMMENTS: FAX RESULTS TO DR. [...] 4.2-5.4 WBC 5.3 K/mm3 (Normal) Range: 4.4-11.0 42-Pvi-507250:06 VIT D,25 37555 36.2 ng/mL (Normal) Comments: COMMENTS: FAX RESULTS TO DR. BROOKS Range: 32.0-100.0 Comments: Recent studies consider the lower limit of 32.0 ng/mL to ritika threshold for optimal health.Armando BW. J Nutr. 2004;135(2):317-22.Performed at: [address] [id number] Director: Aline Call MD 30-Mks-600350:25 LIVER Comments: COMMENTS: FAX RESULTS TO DR. SCANLON FAXED 12/25/09 [address]. D BILI 0.10 mg/dL (Normal) Range: 0.00-0.30 ALB 3.3 g/dL (Abnormal) Range: 3.4-5.0 ALK P 60 U/L (Normal) Range: 50-136 ALT 22 U/L (Normal) Range: 12-78 AST 23 U/L (Normal) Range: 15-37 T BILI 0.40 mg/dL (Normal) Range: 0.00-1.00 T PROT 6.9 g/dL (Normal) Range: 6.4-8.2 12-Klg-866279:35 BILAT SCRN DIGITAL & CAD Radiology Report See Note (Normal) Comments: Exam Number: [id number] MAMMOGRAM, BILATERAL SCREENING DIGITAL AND CAD HISTORYRoutine [...] examined with computer-aided detection software (Frida macias, [employer], [employer].). Reported By: GAUTAM NUNEZ M.D. :4 C-REACTIVE PROT 22.28 mg/L Range: 0.0-6.0 6 [...] 47-70 WBC 14.0 K/mm3 (Abnormal) Range: 4.4-11.0 73-Cvw-816409:45 COMP METABOLIC A/G 0.8 {RATIO} (Abnormal) Range: [...] RATE 22 mm/h (Normal) Range: 0-30 :25 PROT.[id number] ALBUMIN,UR 34.1 % (Normal) MFCMT-8-OJMX,U 6.9 % (Normal) OYVBV-0-RYCP,U 12.4 % (Normal) BETA GLOB,U 33.3 % (Normal) GAMMA GLOB,U 13.3 % (Normal) M-SPIKE,U SeeNote (Normal) Comments: Result: Not Observed NOTE Comment (Normal) Comments: Protein electrophoresis scan will follow via mail orcourier.Performed At: [facility] [place], [place] [id number] PROTEIN,UR 1.9 mg/dL (Normal) Range: 0.0-15.0 :25 SPE [id number] A/G RATIO 1.1 (Normal) Range: 0.7-2.0 ALBUMIN [...] orcourier. PROTEIN,TOTAL 7.0 g/dL (Normal) Range: 6.0-8.5 :10 C-REACTIVE PROT 6.26 mg/L (Abnormal) Range: 0.0-6.0 Comments: Test performed using the Dimension C-Reactive ProteinExtended Range assay method. This assay meets the AHA/CDC 2003 recommendations fordetermining patients at high risk for cardiovasculardisease. Reference: High risk CRP >3.0 mg/L :10 CBCD BASO% 0.3 % (Normal) Range: 0-1 [...] T PROT 7.8 g/dL (Normal) Range: 6.4-8.2 55-Tvv-591782:10 ESR SED RATE 35 mm/h (Abnormal) Range: 0-30 :10 VIT D,25 48497 97.4 ng/mL (Normal) Range: 32.0-100.0 Comments: Recent studies consider the lower limit of 32.0 ng/mL to ritika threshold for optimal health.Armando VALLE. J Nutr. 2004;135(2):317-22.Performed At: [facility] [id number] :25 C-REACTIVE PROT < 0.50 mg/L (Normal) [...] 11.6-14.6 WBC 10.5 K/mm3 (Normal) Range: 4.4-11.0 30-Fmk-647012:25 COMP METABOLIC A/G 0.9 {RATIO} (Normal) Range: [...] T PROT 6.8 g/dL (Normal) Range: 6.4-8.2 24-Trj-374342:25 ESR SED RATE 12 mm/h (Normal) Range: [...] 15 mm/h (Normal) Range: 0-30 :50 VITD 1,25 73482 13.4 pg/mL (Abnormal) Comments: DR. LAMBERT GETS A BMP Range: 15.9-55.6 Comments: Performed At: [address] [id number] :13 LYTES CL 101 mmol/L (Normal) Range: [...] cardiovasculardisease. Reference: High risk CRP >3.0 mg/L 6-Foe-197855:07 CBCD BASO% 0.6 % (Normal) Range: 0-1 [...] 11.6-14.6 WBC 7.6 K/mm3 (Normal) Range: 4.4-11.0 2-Ici-667092:07 COMP METABOLIC A/G 1.0 {RATIO} (Normal) Range: [...] T PROT 7.2 g/dL (Normal) Range: 6.4-8.2 9-Qkm-802834:07 ESR SED RATE 13 mm/h (Normal) Range: [...] Crohn's disease, unspecified, without complications : Reviewed Cuff Maker Letter Indication: Crohn's disease, unspecified, without complications Rheumatoid arthritis : Reviewed Cuff Maker Letter Indication: Rheumatoid arthritis Benign essential hypertension [...] Benign essential hypertension Rheumatoid arthritis : Reviewed Cuff Maker Letter Indication: Rheumatoid arthritis Crohn's disease, unspecified, without complications : Reviewed Cuff Maker Letter Indication: Crohn's disease, unspecified, without complications [...] mgmt Indication: Hypercholesterolemia Rheumatoid arthritis : Reviewed Cuff Maker Letter Indication: Rheumatoid arthritis Benign essential hypertension [...] - Strool Based DNA Test, CRC SCREEN (80449)Indication: Colon cancer screening (Renamed from Encounter for screening for malignant neoplasm of colon) On: 0-Quf-900700:57 Request URINALYSIS, W/ MICRO (57731)Indication: Benign essential hypertension On: 7-Krn-026104:53 Request MICROALBUMIN: CREATININE RATIO (63367) AND (91854)Indication: Benign essential hypertension On: 8-Dpl-615822:53 Request CALCIFIDIOL (73998) VIT D 25Indication: Vitamin D deficiency, unspecified On: 5-Jex-204665:52 Request LIPOPROTEIN, BLD, BY NMR (82864)Indication: Hypercholesterolemia On: 9-Lgh-763043:52 Request TSH (65290)Indication: Hypercholesterolemia On: 17-Wkm-833122:24 Request URINALYSIS, W/ MICRO (16060)Indication: Benign essential hypertension On: :24 Request MICROALBUMIN: CREATININE RATIO (30686) AND (13508)Indication: Benign essential hypertension On: :24 Request LIPID PANEL (61087)Indication: Hypercholesterolemia On: :24 Request Lipid Panel (48877)Indication: Hypercholesterolemia On: 26-Bal-753484:52 Request HEPATIC FUNCTION PANEL (74089)Indication: Hypercholesterolemia On: 52-Crk-530926:52 Request LIPID PANEL (32248)Indication: Hypercholesterolemia On: 24-Ity-594167:13 Request TSH (04338)Indication: Hypercholesterolemia On: 68-Efo-465993:13 Request URINALYSIS, W/ MICRO (39010)Indication: Benign essential hypertension On: :13 Request MICROALBUMIN: CREATININE RATIO (17770) AND (27131)Indication: Benign essential hypertension On: 60-Zqg-203845:13 Request METABOLIC PANEL, COMPREHENSIVE (38301)Indication: Benign essential hypertension On: :13 Request CBC W/AUTO DIFF WBC (03502)Indication: Benign essential hypertension On: 57-Uvt-442654:13 Request CALCIFIDIOL (86164) VIT D 25Indication: Vitamin D deficiency, unspecified On: 86-Qxv-081746:12 Request UPEP (76694)Indication: Elevated blood protein On: :27 Request SPEP (18384)Indication: Elevated blood protein On: 92-Iyw-298031:27 Request Lipid Panel ([id number])Indication: Hypercholesterolemia On: :14 Request MICROALBUMIN: CREATININE RATIO (76218) AND (01061)Indication: Benign essential hypertension On: :14 Request TSH (59890)Indication: Benign essential hypertension On: :14 Request CBC WITH MANUAL DIFF ([id number])Indication: Benign essential hypertension On: :13 Request Metabolic Panel, Comprehensive ([id number])Indication: Benign essential hypertension On: :13 Request URINALYSIS ([id number])Indication: Benign essential hypertension On: 46-Pww-575549:13 Request CALCIFEDIOL ([id number])Indication: Osteoporosis On: 01-Krz-113091:12 Request Thin prep Pap ([id number])Indication: Well woman exam On: 6-Ayd-676176:49 Request Comments: swabbed vaginal lining Planned Procedures DEXA SCAN AXIAL SKELETON ([id number])By: On: 17-Jul-2018 Intent Sade Lambert DO, DO, Kathleen SCREENING DIGITAL TOMOSYNTHESIS OF On: 17-Jul-2018 Intent BREAST ([id number])By: Sade Lambert DO, DO, Kathleen X-RAY OF CERVICAL SPINE, TWO VIEWS On: 17-Jul-2018 Intent (90143)By: Sade Lambert DO, DO, Kathleen ELECTROCARDIOGRAM, COMPLETE (ECG) On: 17-Jul-2018 Intent ([id number])By: Sade Lambert DO Comments: nsr no acute chg DO, Sade ELECTROCARDIOGRAM, COMPLETE (ECG) On: 07-Jun-2016 Intent ([id number])By: Sade Lambert DO Comments: sinus ventura no acute chg DO, Sade Pelvic and Breast, Medicare On: 07-Jun-2015 Intent (G0101)By: Sade Lambert DO, DO, Kathleen MAMMOGRAM, SCREENING, BOTH BREAST On: 07-Jun-2015 Intent ([id number])By: Sade Lambert DO, DO, Kathleen EKG ([id number])By: Sade Lambert DO On: 17-May-2015 Intent Sade Lambert DO Comments: nsr no acute chg EKG ([id number])By: Sade Lambert DO On: 29-Mar-2013 Intent Sade Lambert DO Comments: sinus ventura - first degree AV block -- no new chg EKG ([id number])By: Sade Lambert DO On: 25-Apr-2011 Intent Sade Lambert DO Comments: nsr no acute chg Pelvic and Breast, Medicare On: 26-May-2009 Intent (G0101)By: Renita Richardson LPN MAMMOGRAM, SCREENING, BOTH BREASTS On: 26-May-2009 Intent ([id number])By: Renita Richardson LPN EKG ([id number])By: Sade Lambert DO On: 31-Mar-2008 Intent Sade [...] - Detail Indication: Benign essential hypertension Encounters Office Visit On: 17-Jul-2018 11:32 Encounter Reason: [...] providers contributing to the patient's care are rack washer. Encounter Diagnosis: Benign essential hypertension (401.1), BMI [...] in bathroom. The patient has completed the f [facility] preventative measures: PAP smear (unsure), mammography (unsure) and colonoscopy (Dr. Wesley 2012). 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 The patient has noticed lack of energy. Other providers contributing to the patient's care are inspector timers (Dr. Rudolph), gastrologist (Dr. 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
--- OUTSIDE RECORDS SUMMARY | 2018-11-05 20:00 | XMS RPT_ITS ---
:1940 Author Organization OHIP Support Name Relationship Address Phone MARIA C, ALKA Unavailable [address] + [place] [address] R Unavailable Unavailable Unavailable MARIA C, ALKA Unavailable [address] + [place] [address] R Unavailable Unavailable Unavailable MARIA C, ALKA Unavailable [address] + [place] [address] R Unavailable Unavailable Unavailable MARIA C, ALKA Unavailable [address] + [place] [address] R Unavailable Unavailable Unavailable MARIA C, ALKA Unavailable [address] + [place] [address] R Unavailable Unavailable Unavailable MARIA C, ALKA Unavailable [address] + [place] [address] R Unavailable Unavailable Unavailable MARIA C, ALKA Unavailable [address] + [place] [address] R Unavailable Unavailable Unavailable MARIA C, ALKA Unavailable [address] + [place] [address] R Unavailable Unavailable Unavailable MARIA C, ALKA Unavailable [address] + [place] [address] R Unavailable Unavailable Unavailable MARIA C, ALKA Unavailable [address] + [place] [address] R Unavailable Unavailable Unavailable MARIA C, ALKA Unavailable [address] + [place] [address] R Unavailable Unavailable Unavailable MARIA C, ALKA Unavailable [address] + [place] [address] R Unavailable Unavailable Unavailable MARI AC, ALKA Unavailable [address] + [place] [address] R Unavailable Unavailable Unavailable MARIA C, ALKA Unavailable [address] + [place] [address] R Unavailable Unavailable Unavailable Care Team Providers Name Role Phone Vellanki, Danette Attending Unavailable Vellanki, Danette Referring Unavailable Cassie, Sade Primary Care Unavailable Vellanki, Danette Attending Unavailable Cassie, Sade Primary Care Unavailable Vellanki, Danette Attending Unavailable Cassie, Sade Primary Care Unavailable Vellanki, Danette Attending Unavailable Vellanki, Danette Referring Unavailable Cassie, Sade Primary Care Unavailable Vellanki, Danette Attending Unavailable Vellanki, Danette Referring Unavailable Cassie, Sade Primary Care Unavailable Vellanki, Danette Attending Unavailable Vellanki, Danette Referring Unavailable Cassie, Sade Primary Care Unavailable Vellanki, Danette Attending Unavailable Vellanki, Danette Referring Unavailable Cassie, Sade Primary Care Unavailable Vellanki, Danette Attending Unavailable Vellanki, Danette Referring Unavailable Cassie, Sade Primary Care Unavailable Vellanki, Danette Attending Unavailable Vellanki, Danette Referring Unavailable Cassie, Sade Primary Care Unavailable Cassie, Sade Attending Unavailable Cassie, Sade Referring Unavailable Cassie, Sade Primary Care Unavailable Cassie, Sade Attending Unavailable Cassie, Sade Referring Unavailable Cassie, Sade Primary Care Unavailable Cassie, Sade Attending Unavailable Cassie, Sade Referring Unavailable Cassie, Sade Primary Care Unavailable Vellanki, Danette Attending Unavailable Vellanki, Danette Referring Unavailable Cassie, Sade Primary Care Unavailable Cassie, Sade Attending Unavailable Cassie, Sade Primary Care Unavailable PROBLEMS PROBLEMS DATE TYPE CONDITION / CODE ATTENDING STATUS SOURCE 09/10/2018 Unknown Z78.0 - Cassie, Active [place] Asymptomatic [facility] menopausal state / Hospital Z78.0(ICD-10) Repository 09/10/2018 Unknown Z12.31 - Encounter Cassie, Active [place] for screening [facility] mammogram for Hospital malignant neoplasm Repository of breast / Z12.31(ICD-10) 08/10/2018 Unknown M54.12 - Cassie, Active [place] Radiculopathy, [facility] cervical region / Hospital M54.12(ICD-10) Repository 07/16/2018 Unknown M05.70 - Cassie, Active [place] Rheumatoid [facility] arthritis with Hospital rheumatoid factor Repository of unspecified site without organ or systems involvement / M05.70(ICD-10) PROCEDURES PROCEDURES No Procedure Records FoundRESULTS RESULTS SCREENING MAMM (CAD), Observed: 09/10/2018 Status: F Source: [place] BIL[place] 2:27 PM [facility] REPOSITORY [facility] Imaging Services [address] [place] [address] SCREENING MAMM (CAD), BILAT MR#: [id number] Acct: [id number] Name: TRES RAMIRES Rep #: [id number] : 1940 F 78 From: Bartolo Knight MD PCP: Sade Matthews DO Status: REG CLI Study: SCREENING MAMM (CAD), BILAT Date of Exam: 09/10/18 Exam# [id number] Ordering Dr: Sade Matthews DO MAMMOGRAPHY - BILATERAL SCREENING REASON FOR EXAM: Female, 78 years old. Routine annual screening examination. PERTINENT HISTORY: Non-contributory. TECHNIQUE: Digital bilateral breast leslie (3D mammographic acquisition) in the CC and MLO projections. 2-D mediolateral oblique (MLO) and craniocaudad (CC) views of both breasts were obtained. CAD: Full Field Digital Mammography with Computer Added Detection was performed. COMPARISON: Comparison is made with prior study July 24, 2015 and July 03, 2009. FINDINGS: Breast Composition: There are scattered areas of fibroglandular density. There are no dominant masses or suspicious calcifications. No other significant abnormalities are identified. There has been no significant change since the prior study. BI/SCREENING MAMM (CAD), BILAT IMPRESSION: Stable bilateral screening mammogram. Yearly follow-up mammogram recommended. (A) ASSESSMENT CATEGORY: BIRADS Category 1: Negative. A letter regarding these results will be sent to the patient by the facility within 30 days. Approximately 10% of breast cancers are not detected by mammography. A normal mammogram should not delay biopsy of a clinically suspicious abnormality. [id number] Electronically Signed: Bartolo Knight MD at 15:27 EST Tel [phone], Service support , CC: Sade Matthews DO [employer] Operator: Signed DEXA BONE DENSITY Observed: 09/10/2018 Status: F Source: [place] STUDY 2:27 PM [facility] REPOSITORY [facility] Imaging Services [address] [place] [address] Dexa Bone Density Study MR#: [id number] Acct: [id number] Name: TRES RAMIRES Rep #: [id number] : 1940 F 78 From: Bartolo Knight MD PCP: Sade Matthews DO Status: REG CLI Study: Dexa Bone Density Study Date of Exam: 09/10/18 Exam# [id number] Ordering Dr: Sade Matthews DO STUDY: DUAL ENERGY X-RAY ABSORPTIOMETRY / DXA REASON FOR EXAM: Female, 78 years old. The patient is postmenopausal. Loss of height. TECHNIQUE: Bone Mineral Density (BMD) measurements of lumbar spine and bilateral hips were obtained. COMPARISON: Comparison is made with prior examination dated May 05, 2012. FINDINGS: Lumbar Spine (L1-L4): g/cm2 (0.978) / T-score (-1.7) / Z-score (0.1) Findings are suggestive of osteopenia with a moderate fracture risk. Left Femur Total: g/cm2 (0.679) / T-score (-2.6) / Z- score (-0.8) Left Femoral Neck: g/cm2 (0.771) / T-score (-1.9) / Z- score (0.1) Right Femur Total: g/cm2 (0.680) / T-score (-2.6) / Z- score (-0.8) Right Femoral Neck: g/cm2 (0.802) / T-score (-1.7) / Z-score (0.3) The T-Scores on the most recent prior examination were: Lumbar Spine (L1-L4): There has been improvement of bone density since the previous examination. Left Femur Total: which represents a worsening of 10.7%. Right Femur Total: which represents a worsening of 7.9%. BD/Dexa Bone Density Study IMPRESSION: The patient is considered osteoporotic as outlined below according to World Kirby Organization (WHO) criteria with a high fracture risk. There has been worsening of bone density since the previous examination. Reference Information: The T-score is the number of standard deviations above or below the standard which is normal for young adults at their peak bone mineral density. The World Health Organization (WHO) interprets the T-scores as follows: Above -1 Normal bone density Between -1 and -2.5 Osteopenia Equal to / or below -2.5 Osteoporosis As a practical clinical guideline, osteopenia may be graded as follows: Mild -1 through -1.5 Moderate -1.6 through -2.0 Severe -2.1 through -2.4 The Z-score is the number of standard deviations above or below age-matched controls. A Z-score of less than -1.5 would be considered abnormal. References: 1. NIH Osteoporosis and Related Bone Diseases http://www.osteo.org 2. International Society for Clinical Densitometry http://www.iscd.org 3. National Osteoporosis Foundation http://www.nof.org Electronically Signed: Bartolo Knight MD at 15:56 EST Tel [phone], Service support , CC: Sade Matthews DO [employer] Operator: Signed INITAL EVALUATION (1) Observed: 07/23/2018 Status: F Source: [place] - PT 4:21 PM [facility] REPOSITORY [facility] Physical Therapy [facility] [address] [place], [place] [address] Fax REHABILITATION SERVICES INITIAL EVALUATION MR#: [id number] Acct: [id number] Name: TRES RAMIRES Rep #: [id number] : 1940 78 From: Lesli Andrews DPT Referring Dr.: Sade Matthews DO Status: REG RCR Insurance: MEDICARE PART A B [employer] Patient's Visit Information TRES RAMIRES is a 78 year old F referred to Physical Therapy by Sade Matthews with a diagnosis of Neck pain. Date of Evaluation: 07/23/18 Physical Therapist: Lesli Andrews - Visit Plan Plan: D/C pt. to I HEP. - Subjective Subjective: Pt. was going to cancel because feeling better but radiographs showing OA and degenerative changes. Want to get some advice on exercises. Couple weeks ago woke up with stiff shoulder/neck R side then L then middle, felt like needed massage. Feeling better now. No pain currently. Within last week no pain, just a little discomfort between shoulder blades [...] pain. When had neck pain trouble rotating neck while driving but, no issue now. No activities cannot do. Driving no problem. No previous injury to neck or shoulders. RA, HTN, high cholesterol. Taking methotrexate and infusions every month for RA, folic acid, metropolo and altase. RA under control with medications. Looking for exercises to maintain strength. 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 - Objective Gait: WFL. Posture: rounded shoulders, FHP, sits with increased trunk flexion. Dermatomes: UE intact bilat. Myotomes: UE 5/5 bilat. ROM: Cervical WFL; slight discomfort with cervical flex., shoulder, elbow, wrist WFL. Palpation: no abnormalities of neck/shoulder compared bilat. - Goals Goal 1:: Pt. will be I with HEP and progressions. Goal Time Frame: Goal met - Rehabilitation Potential Physical Therapy Diagnosis: Pt. presents with good mobility. Neck and shoulder muscular imbalance along with poor posture resulting in intermittent cervical pain. Rehabilitation Potential: Excellent - Anticipated Interventions Patient/Client Instruction: Educate patient on: Condition, Benefits of Fitness Program For the Purpose of:: To improve muscle performance and motor function, To prevent re-injury Therapeutic Exercise to Include: Strength training, Postural training For the Purpose of:: To improve muscle performance and motor function, To prevent re-injury TENS: Yes Cryotherapy (ice pack, ice massage): Yes Thermo therapy (hot pack): Yes Thank you for the opportunity to evaluate your patient. For Medicare and Medicare HMO plans, please review the plan of care and approve it. It will need to be FAXED BACK to us at [phone] for Medicare purposes. Please let me know if there are questions or concerns regarding this plan of care. Physician Signature: Date: <Electronically signed by Lesli Andrews DPT> 07/23/18 1621 CC: Sade Matthews DO ELR Signed For Medicare only, by signing this I certify the plan of care. Physicians Signature Date CERV SPINE 2 OR 3 Observed: 07/17/2018 Status: F Source: [place] VIEWS 1:18 PM [facility] REPOSITORY [facility] Imaging Services [address] [place] [address] Cerv Spine 2 or 3 Views MR#: [id number] Acct: [id number] Name: TRES RAMIRES Rep #: [id number] : 1940 F 78 From: Nafisa Lovett MD PCP: Sade Matthews DO Status: REG CLI Study: Cerv Spine 2 or 3 Views Date of Exam: 07/17/18 Exam# [id number] Ordering Dr: Sade Matthews DO STUDY: X-RAY - CERVICAL SPINE REASON FOR EXAM: Female, 78 years old. Neck pain one week TECHNIQUE: 3 view(s) of the cervical spine were obtained. COMPARISON: None FINDINGS: There are degenerative changes of the anterior atlantoaxial articulation. Normal odontoid process. There is straightening of the normal cervical lordosis. There is multi-level endplate spondylosis. There is multi-level degenerative disc disease with multilevel disc space narrowing. Normal visualized intervertebral neuroforamina. The soft tissue structures are unremarkable. RAD/Cerv Spine 2 or 3 Views IMPRESSION: Multilevel degenerative disc disease. No visualized evidence of acute loss of height or alignment. Electronically Signed: Nafisa Lovett MD at 16:03 EDT Tel , Service support , CC: Sade Matthews DO [employer] Operator: Signed CBC W/DIFF, AUTOMATED Collected: 07/16/2018 Status: F Source: [place] 12:45 PM [facility] REPOSITORY TYPE CODE TESTS RESULT OUT OF RANGE REFERENCE UNITS LAB L100.1000 4.4-11.0 K/mm3 Normal WBC 8.8 LAB L100.1200 4.2-5.4 M/mm3 Low RBC 3.75 LAB L100.1300 12.0-15.0 g/dl Low HGB 11.9 LAB L100.1400 37-47 % Low HCT 35.9 LAB L100.1500 81-99 fL Normal MCV 95.7 LAB L100.1600 27.0-32.0 pg Normal MCH 31.7 LAB L100.1700 32-36 g/gl Normal MCHC 33.1 LAB L100.1810 11.6-14.6 % Normal RDW CV 13.6 LAB L100.1820 35.1-43.9 fl High RDW SD 45.3 LAB L100.1900 150-450 K/mm3 Normal PLT 313 LAB L100.2000 6.2-12.0 fl Normal MPV 8.9 LAB L100.2100 47-70 % Normal NEUT% 66.0 LAB L100.2200 19-41 % Normal LY% 26.8 LAB L100.2300 0-10 % Normal MONO% 4.9 LAB L100.2400 0-5 % Normal EO% 1.9 LAB L100.2500 0-1 % Normal BASO% 0.2 LAB L100.2550 0.0-0.9 % Normal IM GRAN % 0.200 Result Comment: IG% - Immature Granulocytes (promyelocytes, myelocytes and metamyelocytes) > 1% indicates that a LEFT SHIFT is Present. LAB L100.2620 2.0-7.7 X10 3/uL Normal Absolute Neut 5.8 LAB L100.2720 0.83-4.51 X10 3/ul Normal Absolute Lymph 2.37 Performed By: #### L100.0100 #### [facility] [address] [place], [place], [id number] COMPREHENSIVE METABOLIC Collected: 07/16/2018 Status: F Source: [facility] 12:45 PM [facility] REPOSITORY TYPE CODE TESTS RESULT OUT OF RANGE REFERENCE UNITS LAB L501.0100 74-106 mg/dL High GLU 133 Result Comment: Fasting Glucose result greater than or equal to 126 mg/dL suggests DIABETES MELLITUS per A.D.A. criteria. Please note revised GLUCOSE reference range effective 2017. LAB L501.1000 7-18 mg/dL Normal BUN 10 LAB L501.1100 0.55-1.02 mg/dL Normal CREAT,SERUM 0.78 Result Comment: The validity of the calculated GFR AND GFRAA in patients over 70 years has not been determined. Clinical correlation is essential. LAB L501.1110 >60 mL/min Normal EST GFR 77 Result Comment: Non- GFR Calc LAB L501.1115 >60 mL/min Normal EST GFR - AA 93 Result Comment: GFR Calc LAB L501.1255 ml/min Normal Estimated CRCL 41.33 LAB L501.1300 10-20 RATIO Normal BUN/CRE 12.9 LAB L501.1500 6.4-8. g/dL Normal 2 T PROT 6.6 LAB L501.1800 3.2-5. g/dL Low 0 ALB 3.0 LAB L501.1950 2.2-4. g/dL Normal 2 GLOB 3.6 LAB L501.2000 0.9-2. RATIO Low 4 A/G 0.8 LAB L501.2200 8.5-10 mg/dL Normal .1 CA 8.5 LAB L501.4100 15-37 U/L Normal AST 21 LAB L501.4305 45-117 U/L Normal ALK P 84 LAB L501.4405 13-56 U/L Normal ALT 20 LAB L501.4600 0.20-1 mg/dL Normal .00 T BILI 0.40 LAB L501.5300 136-14 mmol/L Low 5 NA 133 LAB L501.5600 3.5-5. mmol/L Normal 1 K 4.1 LAB L501.5900 98-107 mmol/L Normal CL 99 LAB L501.6100 21.0-3 mmol/L Normal 2.0 CO2 28.0 LAB L501.6200 5-15 Normal GAP 6 Performed By: #### L500.4050 #### [facility] [address] [place], [address] CBC W/DIFF, AUTOMATED Collected: 04/09/2018 Status: F Source: [place] 12:55 PM [facility] REPOSITORY TYPE CODE TESTS RESULT OUT OF RANGE REFERENCE UNITS LAB L100.1000 4.4-11.0 K/mm3 Normal WBC 8.1 LAB L100.1200 4.2-5.4 M/mm3 Low RBC 4.01 LAB L100.1300 12.0-15.0 g/dl Normal HGB 12.8 LAB L100.1400 37-47 % Normal HCT 38.3 LAB L100.1500 81-99 fL Normal MCV 95.5 LAB L100.1600 27.0-32.0 pg Normal MCH 31.9 LAB L100.1700 32-36 g/gl Normal MCHC 33.4 LAB L100.1810 11.6-14.6 % Normal RDW CV 13.9 LAB L100.1820 35.1-43.9 fl High RDW SD 47.0 LAB L100.1900 150-450 K/mm3 Normal PLT 291 LAB L100.2000 6.2-12.0 fl Normal MPV 9.2 LAB L100.2100 47-70 % Normal NEUT% 61.2 LAB L100.2200 19-41 % Normal LY% 30.0 LAB L100.2300 0-10 % Normal MONO% 6.8 LAB L100.2400 0-5 % Normal EO% 1.6 LAB L100.2500 0-1 % Normal BASO% 0.2 LAB L100.2550 0.0-0.9 % Normal IM GRAN % 0.200 Result Comment: IG% - Immature Granulocytes (promyelocytes, myelocytes and metamyelocytes) > 1% indicates that a LEFT SHIFT is Present. LAB L100.2620 2.0-7.7 X10 3/uL Normal Absolute Neut 4.9 LAB L100.2720 0.83-4.51 X10 3/ul Normal Absolute Lymph 2.42 Performed By: #### L100.0100 #### [facility] [address] [place], [address] COMPREHENSIVE METABOLIC Collected: 04/09/2018 Status: F Source: [facility] 12:55 PM [facility] REPOSITORY TYPE CODE TESTS RESULT OUT OF RANGE REFERENCE UNITS LAB L501.0100 74-106 mg/dL Normal GLU 91 Result Comment: Please note revised GLUCOSE reference range effective 2017. LAB L501.1000 7-18 mg/dL Normal BUN 12 LAB L501.1100 0.55-1.02 mg/dL Normal CREAT,SERUM 0.88 Result Comment: The validity of the calculated GFR AND GFRAA in patients over 70 years has not been determined. Clinical correlation is essential. LAB L501.1110 >60 mL/min Normal EST GFR 66 Result Comment: Non- GFR Calc LAB L501.1115 >60 mL/min Normal EST GFR - AA 80 Result Comment: GFR Calc LAB L501.1300 10-20 RATIO Normal BUN/CRE 13.6 LAB L501.1500 6.4-8.2 g/dL T Normal PROT 6.8 LAB L501.1800 3.2-5.0 g/dL Normal ALB 3.2 LAB L501.1950 2.2-4.2 g/dL Normal GLOB 3.6 LAB L501.2000 0.9-2.4 RATIO Normal A/G 0.9 LAB L501.2200 8.5-10.1 mg/dL CA Normal 8.7 LAB L501.4100 15-37 U/L Normal AST 21 LAB L501.4305 45-117 U/L Normal ALK P 66 LAB L501.4405 13-56 U/L Normal ALT 24 LAB L501.4600 0.20-1.00 mg/dL T Normal BILI 0.70 LAB L501.5300 136-145 mmol/L Low NA 134 LAB L501.5600 3.5-5.1 mmol/L K Normal 3.8 LAB L501.5900 98-107 mmol/L CL Normal 98 LAB L501.6100 21.0-32.0 mmol/L Normal CO2 28.0 LAB L501.6200 5-15 Normal GAP 8 Performed By: #### L500.4050 #### [facility] [address] [place], [address] CBC W/DIFF, AUTOMATED Collected: 12/25/2017 Status: F Source: [place] 12:50 PM [facility] REPOSITORY TYPE CODE TESTS RESULT OUT OF RANGE REFERENCE UNITS LAB L100.1000 4.4-11.0 K/mm3 Normal WBC 9.1 LAB L100.1200 4.2-5.4 M/mm3 Low RBC 4.04 LAB L100.1300 12.0-15.0 g/dl Normal HGB 12.7 LAB L100.1400 37-47 % Normal HCT 38.8 LAB L100.1500 81-99 fL Normal MCV 96.0 LAB L100.1600 27.0-32.0 pg Normal MCH 31.4 LAB L100.1700 32-36 g/gl Normal MCHC 32.7 LAB L100.1810 11.6-14.6 % Normal RDW CV 14.0 LAB L100.1820 35.1-43.9 fl High RDW SD 49.2 LAB L100.1900 150-450 K/mm3 Normal PLT 264 LAB L100.2000 6.2-12.0 fl Normal MPV 9.1 LAB L100.2100 47-70 % Normal NEUT% 63.4 LAB L100.2200 19-41 % Normal LY% 26.7 LAB L100.2300 0-10 % Normal MONO% 7.7 LAB L100.2400 0-5 % Normal EO% 1.7 LAB L100.2500 0-1 % Normal BASO% 0.3 LAB L100.2550 0.0-0.9 % Normal IM GRAN % 0.200 Result Comment: IG% - Immature Granulocytes (promyelocytes, myelocytes and metamyelocytes) > 1% indicates that a LEFT SHIFT is Present. LAB L100.2620 2.0-7.7 X10 3/uL Normal Absolute Neut 5.8 LAB L100.2720 0.83-4.51 X10 3/ul Normal Absolute Lymph 2.42 Performed By: #### L100.0100 #### [facility] [address] [place], [place], [address] COMPREHENSIVE METABOLIC Collected: 12/25/2017 Status: F Source: [facility] 12:50 PM [facility] REPOSITORY TYPE CODE TESTS RESULT OUT OF RANGE REFERENCE UNITS LAB L501.0100 74-106 mg/dL Normal GLU 94 Result Comment: Please note revised GLUCOSE reference range effective 2017. LAB L501.1000 7-18 mg/dL Normal BUN 11 LAB L501.1100 0.55-1.02 mg/dL Normal CREAT,SERUM 0.80 Result Comment: The validity of the calculated GFR AND GFRAA in patients over 70 years has not been determined. Clinical correlation is essential. LAB L501.1110 >60 mL/min Normal EST GFR 74 Result Comment: Non- GFR Calc LAB L501.1115 >60 mL/min Normal EST GFR - AA 89 Result Comment: GFR Calc LAB L501.1255 ml/min Normal Estimated CRCL 52.47 LAB L501.1300 10-20 RATIO Normal BUN/CRE 13.7 LAB L501.1500 6.4-8. g/dL Normal 2 T PROT 6.7 LAB L501.1800 3.2-5. g/dL Normal 0 ALB 3.2 LAB L501.1950 2.2-4. g/dL Normal 2 GLOB 3.5 LAB L501.2000 0.9-2. RATIO Normal 4 A/G 0.9 LAB L501.2200 8.5-10 mg/dL Normal .1 CA 8.6 LAB L501.4100 15-37 U/L Normal AST 26 LAB L501.4305 45-117 U/L Normal ALK P 80 LAB L501.4405 13-56 U/L Normal ALT 29 Result Comment: Please note revised ALT reference range effective 2017. LAB L501.4600 0.20-1.00 mg/dL Normal T BILI 0.40 LAB L501.5300 136-145 mmol/L Low NA 135 LAB L501.5600 3.5-5.1 mmol/L Normal K 4.1 LAB L501.5900 98-107 mmol/L Normal CL 100 LAB L501.6100 21.0-32.0 mmol/L Normal CO2 27.0 LAB L501.6200 5-15 Normal GAP 8 Performed By: #### L500.4050 #### [facility] [address] [place], [address] ALLERGIES ALLERGIES DATE TYPE / CODE NAME / CODE REACTION SEVERITY SOURCE 09/24/2018 Drug No Known Unknown [facility] Allergy/4160 Allergies/F00 Hospital 78876(SNOMED 1100824(RXNOR Repository CT) M) ENCOUNTERS ENCOUNTERS ADMIT/DISCHARGE ACCOUNT ADMITTING ENCOUNTER LOCATION SOURCE NUMBER CLASS 09/24/2018 [id number] Ambulatory [place] 6 [facility] ing:MEDOUTP Repository 09/10/2018 [id number] Ambulatory [place] 9 [facility] ing:OPBD Repository 08/20/2018 [id number] Ambulatory [place] 4 [facility] ing:MEDOUTP Repository 07/23/2018 [id number] Ambulatory [place] 7 [facility] ing:PT Repository 07/17/2018 [id number] Ambulatory [place] 1 [facility] ing:HPRAD Repository 07/16/2018 [id number] Ambulatory [place] 2 [facility] ing:MEDOUTP Repository 06/11/2018 [id number] Ambulatory [place] 5 [facility] ing:MEDOUTP Repository 05/11/2018 [id number] Ambulatory [place] 0 [facility] ing:MEDOUTP Repository 04/09/2018 [id number] Ambulatory [place] 5 [facility] ing:MEDOUTP Repository 03/05/2018 [id number] Ambulatory [place] 7 [facility] ing:MEDOUTP Repository 01/29/2018 [id number] Ambulatory [place] 4 [facility] ing:MEDOUTP Repository 12/25/2017 [id number] Ambulatory [place] 7 [facility] ing:MEDOUTP Repository 11/20/2017 [id number] Ambulatory [place] 0 [facility] ing:MEDOUTP Repository 10/16/2017 [id number] Ambulatory [place] 0 [facility] ing:MEDOUTP Repository PAYERS PAYERS ENCOUNTER GUARANTOR PAYER SUBSCRIBER SOURCE 09/24/2018 TRES L [id number] Primary TRES L WADEDOB: [place] [address] Insurance:MEDICARE [id number] [address]Nyt: (330) Number: Repository [phone] () [id number] Date:2018-08-20 09/24/2018 Secondary TRES L WADEDOB: [place] Insurance:COLONIAL [id number] Number: Repository [id number] Date:[id number] [address]KX: 09/24/2018 Tertiary NOT GIVENUNK [place] Insurance:SELF PAY [facility] Number: Effective Repository Date:2018-08-20 09/10/2018 TRES L [id number] Primary TRES L WADEDOB: [place] [address] Insurance:MEDICARE [id number] [address]Tjn: (330) Number: Repository [phone] (HP) [id number] Date:2018-07-17 09/10/2018 Secondary TRES L WADEDOB: [place] Insurance:COLONIAL [id number] COPolicy Number: Repository [id number] Date:[id number], [place] [address]LS: 09/10/2018 Tertiary NOT GIVENUNK [place] Insurance:SELF PAY [facility] [facility] Number: Effective Repository Date:2018-07-17 08/20/2018 TRES L [id number] Primary TRES L WADEDOB: [place] [address] Insurance:MEDICARE [id number] [facility] [address]Jmr: (330) Number: Repository [phone] () [id number] Date:2018-07-16 08/20/2018 Secondary TRES L WADEDOB: [place] Insurance:COLONIAL [id number] COPolicy Number: Repository [id number] Date:1760-35-24LM [facility] [address], [place] [address]FA: 08/20/2018 Tertiary NOT GIVENUNK [place] Insurance:SELF PAY [facility] Number: Effective Repository Date:2018-07-16 07/23/2018 TRES [id number] Primary TRES L WADEDOB: [place] [address] Insurance:MEDICARE [id number] General Hospital [address]Woc: (330) Number: Repository [phone] () [id number] Date:2007-02-10 07/23/2018 Secondary TRES L WADEDOB: [place] Insurance:COLONIAL [id number] Health [facility] COPolicy Number: Repository [id number] Date:7597-15-11[address], [place] [address]AL: 07/23/2018 Tertiary NOT GIVENUNK [place] Insurance:SELF PAY [facility] Number: Effective Repository Date:2018-07-17 07/17/2018 TRES L [id number] Primary TRES L WADEDOB: [place] [address] Insurance:MEDICARE [id number] [facility] [address]Bef: (330) Number: Repository [phone] () [id number] Date:2018-07-17 07/17/2018 Secondary TRES L WADEDOB: [place] Insurance:COLONIAL [id number] Health Rowan Medical Center COPolicy Number: Repository [id number] Date:4697-65-02[address], [place] [address]BE: 07/17/2018 Tertiary NOT GIVENUNK [place] Insurance:SELF PAY [facility] Number: Effective Repository Date:2018-07-17 07/16/2018 TRES L [id number] Primary TRES L WADEDOB: [place] [address] Insurance:MEDICARE [id number] [facility] [address]Uih: (330) Number: Repository [phone] () [id number] Date:2018-06-11 07/16/2018 Secondary TRES L WADEDOB: [place] Insurance:CLAFLINIAL [id number] Health Rowan Medical Center COPolicy Number: Repository [id number] Date:9519-08-87TL [facility] [address] [address]MR: 07/16/2018 Tertiary NOT GIVENUNK [place] Insurance:SELF PAY [facility] Number: Effective Repository Date:2018-06-11 06/11/2018 TRES L [id number] Primary TRES L WADEDOB: [place] [address] Insurance:MEDICARE [id number] [facility] [address]Qde: (330) Number: Repository [phone] () [id number] Date:2018-05-11 06/11/2018 Secondary TRES L WADEDOB: [place] Insurance:COLONIAL [id number] Health Rowan Medical Center COPolicy Number: Repository [id number] Date:7148-12-71[address] [address]DJ: 06/11/2018 Tertiary NOT GIVENUNK [place] Insurance:SELF PAY [facility] Number: Effective Repository Date:2018-05-11 05/11/2018 TRES L [id number] Primary TRES L WADEDOB: [place] [address] Insurance:MEDICARE [id number] [facility] [address]Zyb: (330) Number: Repository [phone] () [id number] Date:2018-04-09 05/11/2018 Secondary TRES L WADEDOB: [place] Insurance:COLONIAL [id number] Health Rowan Medical Center COPolicy Number: Repository [id number] Date:8536-55-40FF [facility] [address] [place] [address]SR: 05/11/2018 Tertiary NOT GIVENUNK [place] Insurance:SELF PAY [facility] Number: Effective Repository Date:2018-04-09 04/09/2018 TRES L [id number] Primary TRES L WADEDOB: [place] [address] Insurance:MEDICARE [id number] [facility] A [facility] [address]Hdd: (330) Number: Repository [phone] () [id number] Date:2018-03-05 04/09/2018 Secondary TRES L WADEDOB: [place] Insurance:COLONIAL [id number] Health [facility] Center COPolicy Number: Repository [id number] Date:9263-70-21[address] [place] [address]LK: 04/09/2018 Tertiary NOT GIVENUNK [place] Insurance:SELF PAY [facility] Hospital Number: Effective Repository Date:2018-03-05 03/05/2018 TRES L [id number] Primary TRES L WADEDOB: [place] [address] Insurance:MEDICARE [id number] [facility] [address]Vsw: (330) Number: Repository [phone] () [id number] Date:2018-01-29 03/05/2018 Secondary TRES L WADEDOB: [place] Insurance:COLONIAL [id number] Health Rowan Medical Center COPolicy Number: Repository [id number] Date:4775-12-[address], [place] [address]ME: 03/05/2018 Tertiary NOT GIVENUNK [place] Insurance:SELF PAY [facility] Number: Effective Repository Date:2018-01-29 01/29/2018 Tres L [id number] Primary Tres L WadeDOB: [place] [address] Insurance:MEDICARE [id number] General Hospital [address]Ydw: (330) Number: Repository [phone] () [id number] Date:2017-12-25 01/29/2018 Secondary Tres L WadeDOB: [place] Insurance:COLONIAL [id number] Health [facility] Center COPolicy Number: Repository [id number] Date:4306-18-13[address], [place] [address]HU: 01/29/2018 Tertiary NOT GIVENUNK [place] Insurance:SELF PAY [facility] Number: Effective Repository Date:2017-12-25 12/25/2017 Tres L [id number] Primary Tres L WadeDOB: [place] [address] Insurance:MEDICARE [id number] General Hospital [address]Hes: (330) Number: Repository [phone] () [id number] Date:2017-11-20 12/25/2017 Secondary Tres L WadeDOB: [place] Insurance:COLONIAL [id number] Health Rowan Medical Center COPolicy Number: Repository [id number] Date:4790-83-07[address], [place] [address]SC: 12/25/2017 Tertiary NOT GIVENUNK [place] Insurance:SELF PAY [facility] Number: Effective Repository Date:2017-11-20 11/20/2017 Tres L [id number] Primary Tres L WadeDOB: [place] [address] Insurance:MEDICARE [id number] [facility] [address]Lyw: (330) Number: Repository [phone] () [id number] Date:2017-10-16 11/20/2017 Secondary Tres L WadeDOB: [place] Insurance:COLONIAL [id number] Health Rowan Medical Center COPolicy Number: Repository [id number] Date:1195-62-31RG [facility] [address] [address]NN: 11/20/2017 Tertiary NOT GIVENUNK [place] Insurance:SELF PAY [facility] Number: Effective Repository Date:2017-10-16 10/16/2017 Tres Diego [id number] Primary Tres L WadeDOB: [place] [address] Insurance:MEDICARE [id number] [facility] [address]Yya: (330) Number: Repository [phone] () [id number] Date:2017-09-15 10/16/2017 Secondary Tres L WadeDOB: [place] Insurance:CLAFLINIAL [id number] Health Rowan Medical Center COPolicy Number: Repository [id number] Date:8798-72-60[address], [place] [address]AC: 10/16/2017 Tertiary NOT GIVENUNK [place] Insurance:SELF PAY [facility] Hospital Number: Effective Repository Date:2017-09-15
== END ==
PROVIDERS: Family Provider Internal Medicine; PCP Internal Medicine; Visit Provider Internal Medicine
DX: Z12.31 Encounter for screening mammogram for malignant neoplasm of breast (principal); Z78.0 Asymptomatic menopausal state
CPT/HCPCS: 77063; 77067; 77080

== ENCOUNTER → 2018-09-24 12:31 | Outpatient (CLI) | payer MEDICARE, OTHER, SELFPAY ==
[2018-07-16 12:47] VITALS: BMI 22.3
[2018-09-24 12:57] VITALS: BP 134/64; PULSE 59; RESP 16; TEMP 36.7; O2SAT 96; BMI 22.6
--- OUTSIDE RECORDS SUMMARY | 2018-11-10 07:41 | XMS RPT_ITS | Continuity of Care Document ---
:1940 Author Organization [facility] Address [address] [place] [address] Phone Care Team Providers Name Role Phone Sade Lambert DO Un[facility], [facility] Unavailable Dr. Michael Wesley Unavailable MARCIA Richardson [...] Procedure Dates Details TDAP VACCINE >7 IM (98948) Date: 07-Jun-2015 Completed 07-Jun-2015 Comments: GIVEN 06/07/2015 , DELL Date Value Details 23-Jul-2018 Inital Evaluation (1) - PT Result: Comments: See Note; NOTES: [facility] [address] [place] [address] [address] [place], [place] [address] Fax REHABILITATION SERVICES INITIAL EVALUATION MR#: [id number] Acct: [id number] Name: TRES GONZALEZ Rep #: [id number] : 1940 78 From: Lesli Andrews DPT Referring DrStuart: Sade Lambert DO Status: REG RCR Insurance: MEDICARE PART A B [facility] Patient's Visit Information TRES GONZALEZ [...] to maintain strength. Very active, volunteering at [employer]. - Objective Gait: WFL. Posture: rounded shoulders, [...] to be FAXED BACK to us at [phone] for Medicar e purposes. Please let me [...] 3 Views Result: Comments: See Note; NOTES: [facility] Services [address] [place] [address] Cerv Spine 2 or 3 Views MR#: [id number] Acct: [id number] Name: IKEJACKSONTRES L Rep #: [id number] : 1940 F 78 From: Nafisa Lovett MD PCP: Sade Lambert DO Status: REG CLI Study: Cerv Spine 2 or 3 Views Date of Exam: 07/17/18 Exam# [id number] Ordering Dr: Sade Lambert DO STUDY: X-RAY [...] Service support , CC: Sade Lambert DO Ex Assistant/Program Director: Signed 11-Jun-2017 Knee 4 or More Views Result: Comments: See Note; NOTES: [facility] [address] [place] [address] Knee 4 or More Views MR#: [id number] Acct: [id number] Name: TRES GONZALEZ Rep #: [id number] : 1940 F 77 From: Rodney Patten MD PCP: Sade Lambert DO Status: REG CLI Study: Knee 4 or More Views Date of Exam: 06/11/17 Exam# [id number] Ordering Dr: Danette Brooks MD STUDY: X-RAY [...] CC: Sade Lambert DO; Danette Brooks MD Ex Assistant/Program Director: Signed 11-Jun-2017 Knee 4 or More Views Result: Comments: See Note; NOTES: [facility] Services [address] [place] [address] Knee 4 or More Views MR#: [id number] Acct: [id number] Name: TRES GONZALEZ Rep #: [id number] : 1940 F 77 From: Rodney Patten MD PCP: Sade Lambert DO Status: REG CLI Study: Knee 4 or More Views Date of Exam: 06/11/17 Exam# [id number] Ordering Dr: Danette Brooks MD STUDY: X-RAY [...] CC: Sade Lambert DO; Danette Brooks MD Ex Assistant/Program Director: Signed 24-Jul-2015 Bilat Scrn Digital AND CAD Result: Comments: See Note; NOTES: [facility] Services [address] [place] [address] Breast Imaging Report MR#: [id number] Acct: [id number] Name: TRES GONZALEZ Rep #: [id number] : 1940 F 75 From: Bartolo Knight MD PCP: Sade Lambert DO Status: REG CLI Study: Ila Velasquez Digital AND CAD Date of Exam: 07/24/15 Exam# [id number] Ordering Dr: Kiley Lambert DO MAMMOGRAPHY - [...] Bartolo Knight MD at 16:14 EDT Tel [phone], Service support [phone], CC: Sade Lambert DO Ex Assistant/Program Director: Signed Immunization Name Dates Details Tdap (7 [...] Calculated 1.63 m2 Head Circumference 0.00 cm 18-Mzi-489585:08 Temperature 98.6 f Comments: Method: Oral Pulse [...] 0.00 cm Results Date Description Value Details 5-Vxx-259499:45 CBC W/Diff, Automated Comments: [facility] [address] [place], [address] Absolute Lymph 2.37 {X10_3/ul} (Normal) Range: 0.83-4.51 [...] 4.2-5.4 WBC 8.8 K/mm3 (Normal) Range: 4.4-11.0 9-Pqg-862667:45 Comprehensive Metabolic Profil Comments: [facility] [address] [place], [place], [address] GAP 6 (Normal) Range: 5-15 CO2 28.0 [...] A.D.A. criteria.Please note revised GLUCOSE reference range evahvwxjn68/02/2018. 46-Ovz-963468:55 CBC W/Diff, Automated Comments: [facility] [address] [place], [address] Absolute Lymph 2.42 {X10_3/ul} (Normal) Range: 0.83-4.51 [...] 4.2-5.4 WBC 8.1 K/mm3 (Normal) Range: 4.4-11.0 66-Xbu-627887:55 Comprehensive Metabolic Profil Comments: [facility] [address] [place], [place], [phone] GAP 8 (Normal) Range: 5-15 CO2 28.0 [...] Comments: Please note revised GLUCOSE reference range wuhxfdvqm89/02/2018. 71-Mqy-738261:50 CBC W/Diff, Automated Comments: [facility] [address] [place], [address] Absolute Lymph 2.42 {X10_3/ul} (Normal) [...] 4.2-5.4 WBC 9.1 K/mm3 (Normal) Range: 4.4-11.0 78-Oqx-650503:50 Comprehensive Metabolic Profil Comments: [facility] [address] [place], [place], [address] GAP 8 (Normal) Range: 5-15 CO2 27.0 mmol/L (Normal) Range: 21.0-32.0 CL 100 mmol/L (Normal) Range: 98-107 K 4.1 mmol/L (Normal) Range: 3.5-5.1 NA 135 mmol/L (Abnormal) Range: 136-145 T BILI 0.40 mg/dL (Normal) Range: 0.20-1.00 ALT 29 U/L (Normal) Range: 13-56 Comments: Please note revised ALT reference range wjuqtbaag09/28/2018. ALK P 80 U/L (Normal) Range: 45-117 [...] Comments: Please note revised GLUCOSE reference range jtmjxequi90/02/2018. 5-Cnw-863851:10 CBC W/Diff, Automated Comments: [facility] [address] [place], [place], [address] Absolute Lymph 1.59 {X10_3/ul} (Normal) Range: 0.83-4.51 [...] 4.2-5.4 WBC 7.8 K/mm3 (Normal) Range: 4.4-11.0 1-Ulo-844560:10 Comprehensive Metabolic Profil Comments: [facility] [address] [place], [address] GAP 7 (Normal) Range: 5-15 CO2 28.0 [...] (Normal) Range: 70-110 :18 Lipid Profile Comments: [facility] [address] [facility] [address] [place], [place], [address] VLDL 19 mg/dL (Normal) Range: 5-40 LDL [...] High Risk :18 Microalb:Creat Ratio,Random UR Comments: [facility] [address] [place], [place], [phone] MALB:CREAT 13.0 {mg/g_CRE} (Normal) MICROALBUMIN,UR 5.4 mg/L (Normal) UR CREAT 41.90 mg/dL (Normal) :18 Thyroid Stim Hormone (TSH) Comments: [facility] [address] [place], [address] TSH 3.08 {uIU/mL} (Normal) Range: 0.358-3.74 7-Sep-89995:18 Urinalysis, Complete Comments: How was Urine Obtained? CLEAN [facility] [address] [place], [address] MUCUS, URINE 0 SEEN {/hpf} [...] (Normal) CLARITY Clear (Normal) COLOR Yellow (Normal) 01-Jdn-008555:30 CBC W/Diff, Automated Comments: [facility] [address] [facility] [place], [place], [address] Absolute Lymph 2.22 {X10_3/ul} (Normal) Range: 0.83-4.51 [...] 4.2-5.4 WBC 9.3 K/mm3 (Normal) Range: 4.4-11.0 37-Cda-930633:30 Comprehensive Metabolic Profil Comments: [facility] [address] [place], [place], [address] GAP 5 (Normal) Range: 5-15 CO2 28.0 [...] Range: 70-110 :37 CBC W/Diff, Automated Comments: [facility] [address] [place], [place], [address] Absolute Lymph 2.58 {X10_3/ul} (Normal) Range: 0.83-4.51 [...] Range: 4.4-11.0 :37 Comprehensive Metabolic Profil Comments: [facility] [address] [place], [place], [address] GAP 9 (Normal) Range: 5-15 CO2 27.0 [...] 7-18 GLU 94 mg/dL (Normal) Range: 70-110 88-Zzc-455462:37 CRP Comments: [facility] [address] [place], [place], [address] C-REACTIVE PROT < 2.90 mg/L (Normal) Range: 0.0-3.0 Comments: C-Reactive Protein (CRP) provides useful information for thediagnosis, therapy and monitoring of inflammatory processesand associated diseases. For the evaluation of Relative Riskfor Cardiovascular Dise ase, a High Sensitivity CRP (HSCRP)should be ordered. 96-Yez-445415:37 Erythrocyte Sed Rate Comments: [facility] [address] [place], [place], [address] SED RATE 24 mm/h (Normal) Range: 0-30 14-Stb-494018:40 CBC W/Diff, Automated Comments: Comments: send results to Dr. Brooks and Dr. LambertComments: send results to Dr. Brooks and Dr. Sharifdavid [facility] [address] [place], [address] Absolute Lymph 2.36 {X10_3/ul} (Normal) Range: [...] 4.2-5.4 WBC 8.1 K/mm3 (Normal) Range: 4.4-11.0 52-Vzq-703564:40 Comprehensive Metabolic Profil Comments: Comments: send results to Dr. Brooks and Dr. Sharifdavid [facility] [address] [facility] [address] [place], [place], [address] GAP 7 (Normal) Range: 5-15 CO2 27.0 [...] 7-18 GLU 107 mg/dL (Normal) Range: 70-110 38-Cxc-17280:26 CBC W/Diff, Automated Comments: ORDERED: CBCD, CMP ORDERED: VITD, TSH, CBCD, LIPID, CMP, CAROLYN, [facility] [address] [place], [place], [address] Absolute Lymph 2.36 {X10_3/ul} (Normal) Range: 0.83-4.51 [...] 4.2-5.4 WBC 6.7 K/mm3 (Normal) Range: 4.4-11.0 69-Jkh-73753:26 Comprehensive Metabolic Profil Comments: ORDERED: CBCD, CMP ORDERED: VITD, TSH, CBCD, LIPID, CMP, CAROLYN, [facility] [address] [place], [address] GAP 6 (Normal) Range: 5-15 CO2 26.0 [...] 7-18 GLU 96 mg/dL (Normal) Range: 70-110 31-Rou-40767:26 Lipid Profile Comments: ORDERED: CBCD, CMP ORDERED: VITD, TSH, CBCD, LIPID, CMP, CAROLYN, [facility] [address] [facility] [place], [address] VLDL 18 mg/dL (Normal) Range: 5-40 LDL [...] ORDERED: VITD, TSH, CBCD, LIPID, CMP, CAROLYN, [facility] [address] [place], [place], [address] MALB:CREAT 20.7 {mg/g_CRE} (Normal) MICROALBUMIN,UR 5.0 mg/L (Normal) UR CREAT 24.40 mg/dL (Normal) :26 Thyroid Stim Hormone (TSH) Comments: ORDERED: CBCD, CMPDRBENIGNO ORDERED: VITD, TSH, CBCD, LIPID, CMP, CAROLYN, [facility] [address] [place], [place], [address] TSH 1.90 {uIU/mL} (Normal) Range: 0.358-3.74 :26 Urinalysis, Complete Comments: ORDERED: CBCD, CMPDRBENIGNO ORDERED: VITD, TSH, CBCD, LIPID, CMP, CAROLYN, UACHow was Urine Obtained? CLEAN [facility] [address] [place], [place], [address] MUCUS, URINE 0 SEEN [...] (Normal) CLARITY Clear (Normal) COLOR Yellow (Normal) 83-Yck-03971:26 Vitamin D,25 Hydroxy Comments: ORDERED: CBCD, CMPDRBENIGNO ORDERED: VITD, TSH, CBCD, LIPID, CMP, CAROLYN, [facility] [address]ac[address] [place], [address] Vitamin D 25-OH 31.1 ng/mL (Normal) Comments: Vitamin D 25(OH) Status Range Deficiency <20 ng/mL (50nmol/L) Insuffciency 20 - 30 ng/mL (50 - 75 nmol/L) Sufficiency 30 - 100 ng/mL (75 - 250 nmol/L) Toxicity >100 ng/mL (>250 nmol/L) :45 CBC W/Diff, Automated Comments: [facility] [address] [place], [place], [address] Absolute Lymph 2.26 {X10_3/ul} (Normal) Range: 0.83-4.51 [...] 4.2-5.4 WBC 8.3 K/mm3 (Normal) Range: 4.4-11.0 5-Fia-464822:45 Comprehensive Metabolic Profil Comments: [facility] [address] [place], [place], [address] GAP 5 (Normal) Range: 5-15 CO2 28.0 [...] <126 mg/dLsuggests IMPAIRED HOMEOSTASIS per A.D.A. criteria. 84-Fwc-923505:41 CBC W/Diff, Automated Comments: [facility] [address] [place], [place], [address] Absolute Lymph 2.16 {X10_3/ul} (Normal) Range: 0.83-4.51 [...] report for address and phone number ANTI-CCP [id number] > 250 {units} (Abnormal) Range: 0-19 Comments: Negative <20 Weak positive 20 - 39 Moderate positive 40 - 59 Strong positive >59Performed at: [facility] [id number] Director: Nato Abbasi MD, Phone: [phone] 50-Max-493045:41 Comprehensive Metabolic Profil Comments: [facility] [address] [place], [place], [address] GAP 6 (Normal) Range: 5-15 CO2 29.0 [...] 7-18 GLU 80 mg/dL (Normal) Range: 70-110 12-Flv-606816:41 Rheumatoid Factor Comments: [facility] [address] [place], [place], [address] RHEUMATOID FAC 92.0 {IU/mL} (Abnormal) 09-Fkv-910289:10 CBC W/Diff, Automated Comments: [facility] [address] [place], [address] ; ordered by Cecilia Absolute [...] 4.2-5.4 WBC 6.2 K/mm3 (Normal) Range: 4.4-11.0 08-Olg-077974:10 Comprehensive Metabolic Profil Comments: [facility] [address] [place], [address] GAP 3 (Abnormal) Range: 5-15 [...] 7-18 GLU 77 mg/dL (Normal) Range: 70-110 59-Fed-494611:50 FECAL OCCULT- Tubes sent home (15690) FECAL OCCULT HGB ASSAY, QUAL, 1-3 SIMULTANEOU negative (Normal) 41-Qww-640597:08 Protein Electro.Ur-Random Comments: Test performed at:[facility] [address] [place], [place] [address] NOTE Comment (Normal) Comments: Protein electrophoresis scan will follow via computer,mail, or clerk cashier delivery.Performed at: - [facility] [id number] Director: Michael Steven PhD, Phone: [phone] M-SPIKE,U (Normal) Comments: Not Observed GAMMA GLOB,U 18.6 % (Normal) BETA GLOB,U 26.5 % (Normal) QBJCS-3-PXPG,U 19.4 % (Normal) UNMSZ-8-CLZE,U 5.4 % (Normal) ALBUMIN,UR 30.0 % (Normal) PROTEIN,UR < 4.0 mg/dL (Normal) Range: 0.0-15.0 Comments: Verified by repeat analysis 86-Gff-635434:08 Protein Electroph, S Comments: Test performed at:[facility] [address] [place] [address] NOTE: Comment (Normal) Comments: The SPE pattern appears essentially unremarkable. Evidenceof monoclonal protein is not apparent. INTERPRETATION Comment (Normal) Comments: Protein electrophoresis scan will follow via computer,mail, or clerk cashier delivery. A/G RATIO 1.3 (Normal) Range: 0.7-2.0 GLOBULIN, TOTAL 2.7 g/dL (Normal) Range: 2.0-4.5 M-SPIKE (Normal) Comments: Not Observed GAMMA GLOBULIN 1.0 g/dL (Normal) Range: 0.5-1.6 BETA GLOBULIN 0.9 g/dL (Normal) Range: 0.6-1.3 ALPHA-2 GLOBUL 0.7 g/dL (Normal) Range: 0.4-1.2 ALPHA-1 GLOBUL 0.2 g/dL (Normal) Range: 0.1-0.4 ALBUMIN 3.5 g/dL (Normal) Range: 3.2-5.6 PROTEIN,TOTAL 6.2 g/dL (Normal) Range: 6.0-8.5 54-Mnf-48585:00 CBC W/Diff, Automated Comments: Test performed at:[facility] [address] [place] [address] Absolute Lymph 2.28 {X10_3/ul} (Normal) [...] 4.2-5.4 WBC 7.1 K/mm3 (Normal) Range: 4.4-11.0 27-Xdj-56190:00 Comprehensive Metabolic Profil Comments: Test performed at:[facility] [address] [place] [address] GAP 7 (Normal) Range: 5-15 CO2 28.0 [...] Comments: Please note revised CREATININE reference range bhgtqniis51/22/2015. BUN 10 mg/dL (Normal) Range: 7-18 GLU 93 mg/dL (Normal) Range: 70-110 :00 Lipid Profile Comments: Test performed at:[facility] [address] [place] [address] VLDL 24 mg/dL (Normal) Range: 5-40 LDL [...] :00 Microalb:Creat Ratio,Random UR Comments: Test performed at:[facility] [address] [place] [address] MALB:CREAT 12.0 {mg/g_CRE} (Normal) MICROALBUMIN,UR 9.5 mg/L (Normal) UR CREAT 75.80 mg/dL (Normal) :00 Thyroid Stim Hormone (TSH) Comments: Test performed at:[facility] [address] [place] [address] TSH 2.01 {uIU/mL} (Normal) Range: 0.358-3.74 :00 Urinalysis, Routine (Dipstick) Comments: How was Urine Obtained? CLEAN CATCHTest performed at:[facility] [address] [place] [address] LEUK ESTERASE 500 /ul (Abnormal) OCCULT BLOOD-UR 10 /ul (Abnormal) NITRITE UR Negative (Normal) UROBILI Normal mg/dL (Normal) PROT DIPSTX Negative mg/dL (Normal) pH UR 8.0 (Normal) Range: 5.0 - 8.0 SP.GR. DIPSTX 1.010 (Normal) Range: 1.002-1.030 KETONE UR Negative mg/dL (Normal) BILIRUBIN URINE Negative mg/dL (Normal) GLUCOSE, UR Normal mg/dL (Normal) CLARITY Sl. Cloudy (Normal) COLOR Yellow (Normal) 37-Nrv-03828:00 Vitamin D,25 Hydroxy Comments: Test performed at:[facility] [address] [place] [address] Vitamin D 25-OH 33.5 ng/mL (Normal) Comments: Vitamin D 25(OH) Status Range Deficiency <20 ng/mL (50nmol/L) Insuffciency 20 - 30 ng/mL (50 - 75 nmol/L) Sufficiency 30 - 100 ng/mL (75 - 250 nmol/L) Toxicity >100 ng/mL (>250 nmol/L) 06-Ayu-566794:00 CBCD ABSOLUTE NEUT 5.3 3/uL (Normal) Range: [...] 11.6-14.6 WBC 7.3 K/mm3 (Normal) Range: 4.4-11.0 59-Qnr-077145:00 COMP METABOLIC A/G 0.9 {RATIO} (Normal) Range: [...] 7-18 GLU 95 mg/dL (Normal) Range: 70-110 7-Rtj-507231:10 CBCD Comments: COMMENTS: FAX RESULTS TO DR [...] 4.2-5.4 WBC 5.6 K/mm3 (Normal) Range: 4.4-11.0 0-Tqz-874438:10 COMP METABOLIC Comments: COMMENTS: FAX RESULTS TO [...] (Normal) GLU 58 mg/dL (Abnormal) Range: 70-110 80-Yfq-968774:06 CBCD Comments: COMMENTS: FAX RESULTS TO DR. [...] 4.2-5.4 WBC 5.3 K/mm3 (Normal) Range: 4.4-11.0 68-Iuy-659092:06 VIT D,25 44721 36.2 ng/mL (Normal) Comments: COMMENTS: FAX RESULTS TO DR. BROOKS Range: 32.0-100.0 Comments: Recent studies consider the lower limit of 32.0 ng/mL to ritika threshold for optimal health.Armando VALLE. J Nutr. 2004;135(2):317-22.Performed at: [address] [id number] Director: Aline Call MD 99-Jrt-676111:25 LIVER Comments: COMMENTS: FAX RESULTS TO DR. SCANLON FAXED 12/25/09 [address]. Jossie BILI 0.10 mg/dL (Normal) Range: 0.00-0.30 ALB 3.3 g/dL (Abnormal) Range: 3.4-5.0 ALK P 60 U/L (Normal) Range: 50-136 ALT 22 U/L (Normal) Range: 12-78 AST 23 U/L (Normal) Range: 15-37 T BILI 0.40 mg/dL (Normal) Range: 0.00-1.00 T PROT 6.9 g/dL (Normal) Range: 6.4-8.2 45-Lzb-851810:35 BILAT SCRN DIGITAL & CAD Radiology Report See Note (Normal) Comments: Exam Number: [id number] MAMMOGRAM, BILATERAL SCREENING DIGITAL AND CAD HISTORYRoutine [...] examined with computer-aided detection software (Frida macias, [employer] Reported By: GAUTAM NUNEZ M.D. 23-Eht-55763:4 C-REACTIVE PROT 22.28 mg/L Range: 0.0-6.0 6 [...] 47-70 WBC 14.0 K/mm3 (Abnormal) Range: 4.4-11.0 45-Xbo-810435:45 COMP METABOLIC A/G 0.8 {RATIO} (Abnormal) Range: [...] RATE 22 mm/h (Normal) Range: 0-30 :25 PROT.[id number] ALBUMIN,UR 34.1 % (Normal) AUUIP-8-HLAI,U 6.9 % (Normal) XEDWJ-1-HZKE,U 12.4 % (Normal) BETA GLOB,U 33.3 % (Normal) GAMMA GLOB,U 13.3 % (Normal) M-SPIKE,U SeeNote (Normal) Comments: Result: Not Observed NOTE Comment (Normal) Comments: Protein electrophoresis scan will follow via mail orcourier.Performed At: [facility] [id number] [place], [place] [id number] PROTEIN,UR 1.9 mg/dL (Normal) Range: 0.0-15.0 :25 SPE [id number] A/G RATIO 1.1 (Normal) Range: 0.7-2.0 ALBUMIN [...] orcourier. PROTEIN,TOTAL 7.0 g/dL (Normal) Range: 6.0-8.5 09-Bde-380814:10 C-REACTIVE PROT 6.26 mg/L (Abnormal) Range: 0.0-6.0 Comments: Test performed using the Dimension C-Reactive ProteinExtended Range assay method. This assay meets the AHA/CDC 2003 recommendations fordetermining patients at high risk for cardiovasculardisease. Reference: High risk CRP >3.0 mg/L 55-Qjy-780271:10 CBCD BASO% 0.3 % (Normal) Range: 0-1 [...] mm/h (Abnormal) Range: 0-30 :10 VIT D,25 30341 97.4 ng/mL (Normal) Range: 32.0-100.0 Comments: Recent studies consider the lower limit of 32.0 ng/mL to ritika threshold for optimal health.Armando VALLE. J Nutr. 2004;135(2):317-22.Performed At: [address] [id number] :25 C-REACTIVE PROT < 0.50 mg/L (Normal) [...] 11.6-14.6 WBC 10.5 K/mm3 (Normal) Range: 4.4-11.0 00-Ofe-945384:25 COMP METABOLIC A/G 0.9 {RATIO} (Normal) Range: [...] T PROT 6.8 g/dL (Normal) Range: 6.4-8.2 26-Vyn-049101:25 ESR SED RATE 12 mm/h (Normal) Range: [...] 15 mm/h (Normal) Range: 0-30 :50 VITD 94148 13.4 pg/mL (Abnormal) Comments: DR. LAMBERT GETS A BMP Range: 15.9-55.6 Comments: Performed At: [address] [id number] :13 LYTES CL 101 mmol/L (Normal) Range: [...] cardiovasculardisease. Reference: High risk CRP >3.0 mg/L 3-Irs-494722:07 CBCD BASO% 0.6 % (Normal) Range: 0-1 [...] T PROT 7.2 g/dL (Normal) Range: 6.4-8.2 3-Rxn-809669:07 ESR SED RATE 13 mm/h (Normal) Range: [...] Crohn's disease, unspecified, without complications : Reviewed [employer] Letter Indication: Crohn's disease, unspecified, without complications Rheumatoid arthritis : Reviewed [employer] Letter Indication: Rheumatoid arthritis Benign essential hypertension [...] Benign essential hypertension Rheumatoid arthritis : Reviewed [employer] Letter Indication: Rheumatoid arthritis Crohn's disease, unspecified, without complications : Reviewed [employer] Letter Indication: Crohn's disease, unspecified, without complications [...] mgmt Indication: Hypercholesterolemia Rheumatoid arthritis : Reviewed [employer] Letter Indication: Rheumatoid arthritis Benign essential hypertension [...] - Strool Based DNA Test, CRC SCREEN (22249)Indication: Colon cancer screening (Renamed from Encounter for screening for malignant neoplasm of colon) On: 0-Cje-870148:57 Request URINALYSIS, W/ MICRO (08649)Indication: Benign essential hypertension On: 1-Ksl-625863:53 Request MICROALBUMIN: CREATININE RATIO (18797) AND (91608)Indication: Benign essential hypertension On: :53 Request CALCIFIDIOL (53176) VIT D 25Indication: Vitamin D deficiency, unspecified On: 3-Ikg-783834:52 Request LIPOPROTEIN, BLD, BY NMR (48650)Indication: Hypercholesterolemia On: :52 Request TSH (04644)Indication: Hypercholesterolemia On: :24 Request URINALYSIS, W/ MICRO (01685)Indication: Benign essential hypertension On: :24 Request MICROALBUMIN: CREATININE RATIO (02862) AND (99291)Indication: Benign essential hypertension On: :24 Request LIPID PANEL (43696)Indication: Hypercholesterolemia On: :24 Request Lipid Panel (81097)Indication: Hypercholesterolemia On: 71-Tkk-639813:52 Request HEPATIC FUNCTION PANEL (26829)Indication: Hypercholesterolemia On: 65-Laj-604419:52 Request LIPID PANEL (12178)Indication: Hypercholesterolemia On: 60-Fjx-050050:13 Request TSH (14730)Indication: Hypercholesterolemia On: 91-Hqn-249955:13 Request URINALYSIS, W/ MICRO (95874)Indication: Benign essential hypertension On: :13 Request MICROALBUMIN: CREATININE RATIO (77121) AND (51434)Indication: Benign essential hypertension On: 76-Kxr-276440:13 Request METABOLIC PANEL, COMPREHENSIVE (49488)Indication: Benign essential hypertension On: 67-Flk-030823:13 Request CBC W/AUTO DIFF WBC (56357)Indication: Benign essential hypertension On: 44-Wmt-216154:13 Request CALCIFIDIOL (77083) VIT D 25Indication: Vitamin D deficiency, unspecified On: 38-Gdt-356553:12 Request UPEP (43396)Indication: Elevated blood protein On: :27 Request SPEP (05201)Indication: Elevated blood protein On: :27 Request Lipid Panel (56578)Indication: Hypercholesterolemia On: :14 Request MICROALBUMIN: CREATININE RATIO (30728) AND (23420)Indication: Benign essential hypertension On: 76-Ilv-992114:14 Request TSH (89014)Indication: Benign essential hypertension On: :14 Request CBC WITH MANUAL DIFF (93582)Indication: Benign essential hypertension On: :13 Request Metabolic Panel, Comprehensive (24975)Indication: Benign essential hypertension On: :13 Request URINALYSIS (50970)Indication: Benign essential hypertension On: 91-Xea-057097:13 Request CALCIFEDIOL ([id number])Indication: Osteoporosis On: [id number]-Vbk-[id number]:12 Request Thin prep Pap ([id number])Indication: Well woman exam On: 1-Jel-[id number]:49 Request Comments: swabbed vaginal lining Planned Procedures DEXA SCAN AXIAL SKELETON ([id number])By: On: 17-Jul-2018 Intent Sade Lambert DO, DO, Kathleen SCREENING DIGITAL TOMOSYNTHESIS OF On: 17-Jul-2018 Intent BREAST ([id number])By: Sade Lambert DO, DO, Kathleen X-RAY OF CERVICAL SPINE, TWO VIEWS On: 17-Jul-2018 Intent (10260)By: Sade Lambert DO, DO, Kathleen ELECTROCARDIOGRAM, COMPLETE (ECG) On: 17-Jul-2018 Intent ([id number])By: Sade Lambert DO Comments: nsr no acute chg DO, Sade ELECTROCARDIOGRAM, COMPLETE (ECG) On: 07-Jun-2016 Intent ([id number])By: Sade Lambert DO Comments: sinus ventura no acute chg DO, Sade Pelvic and Breast, Medicare On: 07-Jun-2015 Intent (G0101)By: Sade Lambert DO, DO, Kathleen MAMMOGRAM, SCREENING, BOTH BREAST On: 07-Jun-2015 Intent ([id number])By: Sade Lambert DO, DO, Kathleen EKG (10742)By: Sade Lambert DO On: 17-May-2015 Intent Sade Lambert DO Comments: nsr no acute chg EKG (78101)By: Sade Lambert DO On: 29-Mar-2013 Intent Sade Lambert DO Comments: sinus ventura - first degree AV block -- no new chg EKG ([id number])By: Sade Lambert DO On: 25-Apr-2011 Intent Sade Lambert DO Comments: nsr no acute chg Pelvic and Breast, Medicare On: 26-May-2009 Intent (G0101)By: Renita Richardson LPN MAMMOGRAM, SCREENING, BOTH BREASTS On: 26-May-2009 Intent ([id number])By: Renita Richardson LPN EKG ([id number])By: Sade Lambert DO On: 31-Mar-2008 Intent Sade [...] providers contributing to the patient's care are financial sales advisor. Encounter Diagnosis: Benign essential hypertension (401.1), BMI [...] in bathroom. The patient has completed the [facility] preventative measures: PAP smear (unsure), mammography (unsure) and colonoscopy (Dr. Wesley 2012). The patient does have durable power of attorney law clerk and living will. The patient has noticed lack of energy. Other providers contributing to the patient's care are cereal maker (Dr. Rudolph), gastrologist (Dr. Wesley) and financial sales advisor (Dr. Brooks).Encounter Diagnosis: Annual Medicare Physical (V70.0), [...]
--- OUTSIDE RECORDS SUMMARY | 2018-11-10 07:41 | XMS RPT_ITS | Continuity of Care Document ---
:1940 Author Organization [facility] Address [address] [facility] [address] [place] [address] Phone Care Team Providers Name Role Phone Sade Lambert DO Unavailable [facility], [facility] Unavailable MARCIA Richardson Unavailable Unavailable Unavailable Unavailable [...] Procedure Dates Details TDAP VACCINE >7 IM (96721) Date: 07-Jun-2015 Completed 07-Jun-2015 Comments: GIVEN 06/07/2015 , DELL Date Value Details 23-Jul-2018 Inital Evaluation (1) - PT Result: Comments: See Note; NOTES: [facility] Physical Therapy [facility]. [address] [place] [address] Fax REHABILITATION SERVICES INITIAL EVALUATION MR#: [id number] Acct: [id number] Name: TRES GONZALEZ Rep #: [id number] : 1940 78 From: Lesli Andrews DPT Referring Dr.: Sade Lambert DO Status: REG RCR Insurance: MEDICARE PART A B [facility] INS NE Patient's Visit Information TRES GONZALEZ is a [...] to maintain strength. Very active, volunteering at [employer]. - Objective Gait: WFL. Posture: rounded shoulders, [...] to be FAXED BACK to us at [phone] for Medicar e purposes. Please let me [...] 3 Views Result: Comments: See Note; NOTES: [facility] Imaging Services [address] [place] [address] Cerv Spine 2 or 3 Views MR#: [id number] Acct: [id number] Name: TRES GONZALEZ Rep #: [id number] : 1940 F 78 From: Nafisa Lovett MD PCP: Sade Lambert DO Status: REG CLI Study: Cerv Spine 2 or 3 Views Date of Exam: 07/17/18 Exam# [id number] Ordering Dr: Sade Lambert DO STUDY: X-RAY [...] Service support , CC: Sade Lambert DO Home Therapy Clinician: Signed 11-Jun-2017 Knee 4 or More Views Result: Comments: See Note; NOTES: [facility] Imaging Services [address] [place] [address] Knee 4 or More Views MR#: [id number] Acct: [id number] Name: TRES GONZALEZ Rep #: [id number] : 1940 F 77 From: Rodney Patten MD PCP: Sade Lambert DO Status: REG CLI Study: Knee 4 or More Views Date of Exam: 06/11/17 Exam# [id number] Ordering Dr: Danette Brooks MD STUDY: X-RAY [...] CC: Sade Lambert DO; Danette Brooks MD Home Therapy Clinician: Signed 11-Jun-2017 Knee 4 or More Views Result: Comments: See Note; NOTES: [facility] Imaging Services [address] [place] [address] Knee 4 or More Views MR#: [id number] Acct: [id number] Name: TRES GONZALEZ Rep #: [id number] : 1940 F 77 From: Rodney Patten MD PCP: Sade Lambert DO Status: REG CLI Study: Knee 4 or More Views Date of Exam: 06/11/17 Exam# [id number] Ordering Dr: Danette Brooks MD STUDY: X-RAY [...] CC: Sade Lambert DO; Danette Brooks MD Home Therapy Clinician: Signed 24-Jul-2015 Bilat Scrn Digital AND CAD Result: Comments: See Note; NOTES: [facility] Imaging Services [address] [place] [address] Breast Imaging Report MR#: [id number] Acct: [id number] Name: TRES GONZALEZ Rep #: [id number] : 1940 F 75 From: Bartolo Knight MD PCP: Sade Lambert DO Status: REG CLI Study: Bilat Scrn Digital AND CAD Date of Exam: 07/24/15 Exam# [id number] Ordering Dr: Kiley Lambert DO MAMMOGRAPHY - [...] Bartolo Knight MD at 16:14 EDT Tel [phone], Service support [phone], CC: Sade Lambert DO Home Therapy Clinician: Signed Immunization Name Dates Details Tdap (7 [...] kg/m2 Body Surface Area Calculated 1.66 m2 7-Qbm-976176:24 Pulse 65 /min Comments: Pattern: Regular Respiration [...] Height 0 in Head Circumference 0.00 cm 4-Saq-969443:18 Temperature 97.5 f Comments: Method: Oral Pulse [...] 0.00 cm Results Date Description Value Details 7-Dcs-762170:45 CBC W/Diff, Automated Comments: [facility] [address] [place], [place], [id number] Absolute Lymph 2.37 {X10_3/ul} (Normal) Range: 0.83-4.51 [...] 4.2-5.4 WBC 8.8 K/mm3 (Normal) Range: 4.4-11.0 1-Vgs-644961:45 Comprehensive Metabolic Profil Comments: [facility] [address] [place], [address] GAP 6 (Normal) Range: 5-15 CO2 28.0 [...] A.D.A. criteria.Please note revised GLUCOSE reference range fvmbczuxz76/02/2018. 29-Igg-824676:55 CBC W/Diff, Automated Comments: [facility] [address] [place], [address] Absolute Lymph 2.42 {X10_3/ul} (Normal) Range: 0.83-4.51 [...] 4.2-5.4 WBC 8.1 K/mm3 (Normal) Range: 4.4-11.0 13-Bmm-073084:55 Comprehensive Metabolic Profil Comments: [facility] [address] [place], [place], [address] GAP 8 (Normal) Range: 5-15 CO2 28.0 [...] Comments: Please note revised GLUCOSE reference range cyokrzdqw22/02/2018. 44-Rfx-417476:50 CBC W/Diff, Automated Comments: [facility] [address] [place], [place], [address] Absolute Lymph 2.42 {X10_3/ul} (Normal) Range: 0.83-4.51 [...] 4.2-5.4 WBC 9.1 K/mm3 (Normal) Range: 4.4-11.0 73-Azt-770913:50 Comprehensive Metabolic Profil Comments: [facility] [address] [place], [place], [address] GAP 8 (Normal) Range: 5-15 CO2 27.0 mmol/L (Normal) Range: 21.0-32.0 CL 100 mmol/L (Normal) Range: 98-107 K 4.1 mmol/L (Normal) Range: 3.5-5.1 NA 135 mmol/L (Abnormal) Range: 136-145 T BILI 0.40 mg/dL (Normal) Range: 0.20-1.00 ALT 29 U/L (Normal) Range: 13-56 Comments: Please note revised ALT reference range qsthceqtv07/28/2018. ALK P 80 U/L (Normal) Range: 45-117 [...] Comments: Please note revised GLUCOSE reference range qkrpzgfur74/02/2018. 9-Alj-277105:10 CBC W/Diff, Automated Comments: [facility] [address] [place], [address] Absolute Lymph 1.59 {X10_3/ul} (Normal) Range: 0.83-4.51 [...] 4.2-5.4 WBC 7.8 K/mm3 (Normal) Range: 4.4-11.0 8-Jgf-472481:10 Comprehensive Metabolic Profil Comments: [facility] [address] [place], [place], [address] GAP 7 (Normal) Range: 5-15 CO2 28.0 [...] (Normal) Range: 70-110 :18 Lipid Profile Comments: [facility] [address] [place], [address] VLDL 19 mg/dL (Normal) Range: [...] High Risk :18 Microalb:Creat Ratio,Random UR Comments: [facility] [address] [place], [address] MALB:CREAT 13.0 {mg/g_CRE} (Normal) MICROALBUMIN,UR 5.4 mg/L (Normal) UR CREAT 41.90 mg/dL (Normal) :18 Thyroid Stim Hormone (TSH) Comments: [facility] [address] [place], [address] TSH 3.08 {uIU/mL} (Normal) Range: 0.358-3.74 :18 Urinalysis, Complete Comments: How was Urine Obtained? CLEAN [facility] [address] [place], [address] MUCUS, URINE 0 SEEN {/hpf} [...] (Normal) CLARITY Clear (Normal) COLOR Yellow (Normal) 70-Nmb-986081:30 CBC W/Diff, Automated Comments: [facility] [address] [place], [address] Absolute Lymph 2.22 {X10_3/ul} (Normal) [...] 4.2-5.4 WBC 9.3 K/mm3 (Normal) Range: 4.4-11.0 68-Tzh-728642:30 Comprehensive Metabolic Profil Comments: [facility] [address] [place], [address] GAP 5 (Normal) Range: 5-15 CO2 28.0 [...] Range: 70-110 :37 CBC W/Diff, Automated Comments: [facility] [address] [place], [place], [phone] Absolute Lymph 2.58 {X10_3/ul} (Normal) Range: 0.83-4.51 [...] Range: 4.4-11.0 :37 Comprehensive Metabolic Profil Comments: [facility] [address] [place], [place], [address] GAP 9 (Normal) Range: 5-15 CO2 27.0 [...] 7-18 GLU 94 mg/dL (Normal) Range: 70-110 18-Eod-941710:37 CRP Comments: [facility] [address] [place], [place], [id number] C-REACTIVE PROT < 2.90 mg/L (Normal) Range: 0.0-3.0 Comments: C-Reactive Protein (CRP) provides useful information for thediagnosis, therapy and monitoring of inflammatory processesand associated diseases. For the evaluation of Relative Riskfor Cardiovascular Dise ase, a High Sensitivity CRP (HSCRP)should be ordered. 40-Jgr-437413:37 Erythrocyte Sed Rate Comments: [facility] [address] [place], [place], [address] SED RATE 24 mm/h (Normal) Range: 0-30 23-Rjp-491696:40 CBC W/Diff, Automated Comments: Comments: send results to Dr. Brooks and Dr. LambertComments: send results to Dr. Brooks and Dr. Sharifdavid [facility] [address] [place], [address] Absolute Lymph 2.36 {X10_3/ul} (Normal) [...] 4.2-5.4 WBC 8.1 K/mm3 (Normal) Range: 4.4-11.0 78-Gmn-929091:40 Comprehensive Metabolic Profil Comments: Comments: send results to Dr. Brooks and Dr. Sharifdavid [facility] [address] [place], [address] GAP 7 (Normal) Range: 5-15 [...] 7-18 GLU 107 mg/dL (Normal) Range: 70-110 28-Xdq-47446:26 CBC W/Diff, Automated Comments: ORDERED: CBCD, CMP ORDERED: VITD, TSH, CBCD, LIPID, CMP, CAROLYN, [facility] [address] [facility] [address] [place], [place], [address] Absolute Lymph 2.36 {X10_3/ul} (Normal) Range: 0.83-4.51 [...] 4.2-5.4 WBC 6.7 K/mm3 (Normal) Range: 4.4-11.0 11-Zmh-04194:26 Comprehensive Metabolic Profil Comments: ORDERED: CBCD, CMPDRBENIGNO ORDERED: VITD, TSH, CBCD, LIPID, CMP, CRAOLYN, [facility] [address] [place], [address] GAP 6 (Normal) Range: 5-15 CO2 26.0 [...] ORDERED: VITD, TSH, CBCD, LIPID, CMP, CAROLYN, [facility] [address] [place], [place], [address] VLDL 18 mg/dL (Normal) Range: 5-40 LDL [...] ORDERED: VITD, TSH, CBCD, LIPID, CMP, CAROLYN, [facility] [address] [place], [address] MALB:CREAT 20.7 {mg/g_CRE} (Normal) MICROALBUMIN,UR 5.0 mg/L (Normal) UR CREAT 24.40 mg/dL (Normal) :26 Thyroid Stim Hormone (TSH) Comments: ORDERED: CBCD, CMP ORDERED: VITD, TSH, CBCD, LIPID, CMP, CAROLYN, [facility] [address] [place], [address] TSH 1.90 {uIU/mL} (Normal) Range: 0.358-3.74 :26 Urinalysis, Complete Comments: ORDERED: CBCD, COLEEN ORDERED: VITD, TSH, CBCD, LIPID, CMP, CAROLYN, UACHow was Urine Obtained? CLEAN [facility] [address] [place], [place], [address] MUCUS, URINE 0 SEEN [...] ORDERED: VITD, TSH, CBCD, LIPID, CMP, CAROLYN, [facility] [address] [place], [address] Vitamin D 25-OH 31.1 ng/mL (Normal) Comments: Vitamin D 25(OH) Status Range Deficiency <20 ng/mL (50nmol/L) Insuffciency 20 - 30 ng/mL (50 - 75 nmol/L) Sufficiency 30 - 100 ng/mL (75 - 250 nmol/L) Toxicity >100 ng/mL (>250 nmol/L) 2-Dlb-459275:45 CBC W/Diff, Automated Comments: [facility] [address] [place], [address] Absolute Lymph 2.26 {X10_3/ul} (Normal) Range: 0.83-4.51 [...] Range: 4.4-11.0 :45 Comprehensive Metabolic Profil Comments: [facility] [address] [place], [place], [address] GAP 5 (Normal) Range: 5-15 CO2 28.0 [...] <126 mg/dLsuggests IMPAIRED HOMEOSTASIS per A.D.A. criteria. 68-Apq-121610:41 CBC W/Diff, Automated Comments: [facility] [address] [place], [place], [address] Absolute Lymph 2.16 {X10_3/ul} (Normal) Range: 0.83-4.51 [...] 4.2-5.4 WBC 7.8 K/mm3 (Normal) Range: 4.4-11.0 09-Nsm-530769:41 CCP IgG Antibodies Comments: [facility] (refer to report for specific site)refer to report for address and phone number ANTI-CCP [id number] > 250 {units} (Abnormal) Range: 0-19 Comments: Negative <20 Weak positive 20 - 39 Moderate positive 40 - 59 Strong positive >59Performed at: - [facility] [address] [id number] Director: Nato Abbasi MD, Phone: [phone] 81-Ahj-962342:41 Comprehensive Metabolic Profil Comments: [facility] [address] [place], [address] GAP 6 (Normal) Range: 5-15 [...] 7-18 GLU 80 mg/dL (Normal) Range: 70-110 93-Hdl-535648:41 Rheumatoid Factor Comments: [facility] [address] [place], [address] RHEUMATOID FAC 92.0 {IU/mL} (Abnormal) 07-Opn-875738:10 CBC W/Diff, Automated Comments: [facility] [address] [place], [address] ; ordered by Cecilia Absolute [...] 4.2-5.4 WBC 6.2 K/mm3 (Normal) Range: 4.4-11.0 89-Wgs-021532:10 Comprehensive Metabolic Profil Comments: [facility] [address] [place], [address] GAP 3 (Abnormal) Range: 5-15 CO2 31.0 [...] 7-18 GLU 77 mg/dL (Normal) Range: 70-110 45-Ldn-912392:50 FECAL OCCULT- Tubes sent home (20493) FECAL OCCULT HGB ASSAY, QUAL, 1-3 SIMULTANEOU negative (Normal) :08 Protein Electro.Ur-Random Comments: Test performed at:[facility] [address] [place], [place] [address] NOTE Comment (Normal) Comments: Protein electrophoresis scan will follow via computer,mail, or senior lead developer delivery.Performed at: - [facility] [id number] Director: Michael Steven PhD, Phone: [phone] M-SPIKE,U (Normal) Comments: Not Observed GAMMA GLOB,U 18.6 % (Normal) BETA GLOB,U 26.5 % (Normal) KAQAC-4-DIAH,U 19.4 % (Normal) FPPLR-5-YXMA,U 5.4 % (Normal) ALBUMIN,UR 30.0 % (Normal) PROTEIN,UR < 4.0 mg/dL (Normal) Range: 0.0-15.0 Comments: Verified by repeat analysis 94-Lrs-925188:08 Protein Electroph, S Comments: Test performed at:[facility] [address] [place] [address] NOTE: Comment (Normal) Comments: The SPE pattern appears essentially unremarkable. Evidenceof monoclonal protein is not apparent. INTERPRETATION Comment (Normal) Comments: Protein electrophoresis scan will follow via computer,mail, or senior lead developer delivery. A/G RATIO 1.3 (Normal) Range: 0.7-2.0 [...] :00 CBC W/Diff, Automated Comments: Test performed at:[facility] [address] [place] [address] Absolute Lymph 2.28 {X10_3/ul} (Normal) [...] 4.2-5.4 WBC 7.1 K/mm3 (Normal) Range: 4.4-11.0 41-Sdg-26128:00 Comprehensive Metabolic Profil Comments: Test performed at:[facility] [address] [place] [address] GAP 7 (Normal) Range: 5-15 CO2 28.0 [...] Comments: Please note revised CREATININE reference range /22/2015. BUN 10 mg/dL (Normal) Range: 7-18 GLU 93 mg/dL (Normal) Range: 70-110 :00 Lipid Profile Comments: Test performed at:[facility] [address] [place] [address] VLDL 24 mg/dL (Normal) Range: 5-40 [...] :00 Microalb:Creat Ratio,Random UR Comments: Test performed at:[facility] [address] [place] [address] MALB:CREAT 12.0 {mg/g_CRE} (Normal) MICROALBUMIN,UR 9.5 mg/L (Normal) UR CREAT 75.80 mg/dL (Normal) :00 Thyroid Stim Hormone (TSH) Comments: Test performed at:[facility] [address] [place] [address] TSH 2.01 {uIU/mL} (Normal) Range: 0.358-3.74 :00 Urinalysis, Routine (Dipstick) Comments: How was Urine Obtained? CLEAN CATCHTest performed at:[facility] [address] [place] [address] LEUK ESTERASE 500 /ul (Abnormal) OCCULT BLOOD-UR 10 /ul (Abnormal) NITRITE UR Negative (Normal) UROBILI Normal mg/dL (Normal) PROT DIPSTX Negative mg/dL (Normal) pH UR 8.0 (Normal) Range: 5.0 - 8.0 SP.GR. DIPSTX 1.010 (Normal) Range: 1.002-1.030 KETONE UR Negative mg/dL (Normal) BILIRUBIN URINE Negative mg/dL (Normal) GLUCOSE, UR Normal mg/dL (Normal) CLARITY Sl. Cloudy (Normal) COLOR Yellow (Normal) 12-Dru-43047:00 Vitamin D,25 Hydroxy Comments: Test performed at:[facility] [address] [place] [address] Vitamin D 25-OH 33.5 ng/mL (Normal) Comments: Vitamin D 25(OH) Status Range Deficiency <20 ng/mL (50nmol/L) Insuffciency 20 - 30 ng/mL (50 - 75 nmol/L) Sufficiency 30 - 100 ng/mL (75 - 250 nmol/L) Toxicity >100 ng/mL (>250 nmol/L) 84-Fmc-950442:00 CBCD ABSOLUTE NEUT 5.3 3/uL (Normal) Range: [...] 11.6-14.6 WBC 7.3 K/mm3 (Normal) Range: 4.4-11.0 21-Nbv-291901:00 COMP METABOLIC A/G 0.9 {RATIO} (Normal) Range: [...] 7-18 GLU 95 mg/dL (Normal) Range: 70-110 7-Xtn-453652:10 CBCD Comments: COMMENTS: FAX RESULTS TO DR [...] 4.2-5.4 WBC 5.6 K/mm3 (Normal) Range: 4.4-11.0 8-Bkx-091291:10 COMP METABOLIC Comments: COMMENTS: FAX RESULTS TO [...] (Normal) GLU 58 mg/dL (Abnormal) Range: 70-110 77-Rak-337903:06 CBCD Comments: COMMENTS: FAX RESULTS TO DR. [...] 4.2-5.4 WBC 5.3 K/mm3 (Normal) Range: 4.4-11.0 19-Awb-433779:06 VIT D,25 42743 36.2 ng/mL (Normal) Comments: COMMENTS: FAX RESULTS TO DR. BROOKS Range: 32.0-100.0 Comments: Recent studies consider the lower limit of 32.0 ng/mL to ritika threshold for optimal health.Armando BW. J Nutr. 2004;135(2):317-22.Performed at: [address] [id number] Director: Aline Call MD 13-Ceb-640129:25 LIVER Comments: COMMENTS: FAX RESULTS TO DR. SCANLON FAXED 12/25/09 [address]. D BILI 0.10 mg/dL (Normal) Range: 0.00-0.30 ALB 3.3 g/dL (Abnormal) Range: 3.4-5.0 ALK P 60 U/L (Normal) Range: 50-136 ALT 22 U/L (Normal) Range: 12-78 AST 23 U/L (Normal) Range: 15-37 T BILI 0.40 mg/dL (Normal) Range: 0.00-1.00 T PROT 6.9 g/dL (Normal) Range: 6.4-8.2 22-Wyx-313838:35 BILAT SCRN DIGITAL & CAD Radiology Report See Note (Normal) Comments: Exam Number: [id number] MAMMOGRAM, BILATERAL SCREENING DIGITAL AND CAD HISTORYRoutine [...] examined with computer-aided detection software (Frida macias, deeplocal, [employer].). Reported By: GAUTAM NUNEZ M.D. :4 C-REACTIVE [...] 47-70 WBC 14.0 K/mm3 (Abnormal) Range: 4.4-11.0 73-Ucn-395625:45 COMP METABOLIC A/G 0.8 {RATIO} (Abnormal) Range: [...] RATE 22 mm/h (Normal) Range: 0-30 :25 PROT.[id number] ALBUMIN,UR 34.1 % (Normal) UYBEU-0-CWAC,U 6.9 % (Normal) CACDZ-7-VQBL,U 12.4 % (Normal) BETA GLOB,U 33.3 % (Normal) GAMMA GLOB,U 13.3 % (Normal) M-SPIKE,U SeeNote (Normal) Comments: Result: Not Observed NOTE Comment (Normal) Comments: Protein electrophoresis scan will follow via mail orcourier.Performed At: [facility] [place], [place] [id number] PROTEIN,UR 1.9 mg/dL (Normal) Range: 0.0-15.0 :25 SPE [id number] A/G RATIO 1.1 (Normal) Range: 0.7-2.0 ALBUMIN [...] T PROT 7.8 g/dL (Normal) Range: 6.4-8.2 11-Gpl-990380:10 ESR SED RATE 35 mm/h (Abnormal) Range: 0-30 :10 VIT D,25 92297 97.4 ng/mL (Normal) Range: 32.0-100.0 Comments: Recent studies consider the lower limit of 32.0 ng/mL to ritika threshold for optimal health.Armando VALLE. J Nutr. 2004;135(2):317-22.Performed At: [facility] [id number] :25 C-REACTIVE PROT < 0.50 mg/L (Normal) [...] 11.6-14.6 WBC 10.5 K/mm3 (Normal) Range: 4.4-11.0 58-Msv-203727:25 COMP METABOLIC A/G 0.9 {RATIO} (Normal) Range: [...] T PROT 6.8 g/dL (Normal) Range: 6.4-8.2 13-Ppl-727959:25 ESR SED RATE 12 mm/h (Normal) Range: [...] mm/h (Normal) Range: 0-30 :50 VITD 1,25 10373 13.4 pg/mL (Abnormal) Comments: DR. LAMBERT GETS A BMP Range: 15.9-55.6 Comments: Performed At: [address] [id number] :13 LYTES CL 101 mmol/L (Normal) Range: [...] cardiovasculardisease. Reference: High risk CRP >3.0 mg/L 8-Lhu-208637:07 CBCD BASO% 0.6 % (Normal) Range: 0-1 [...] 11.6-14.6 WBC 7.6 K/mm3 (Normal) Range: 4.4-11.0 5-Ybz-069860:07 COMP METABOLIC A/G 1.0 {RATIO} (Normal) Range: [...] T PROT 7.2 g/dL (Normal) Range: 6.4-8.2 9-Prv-179512:07 ESR SED RATE 13 mm/h (Normal) Range: [...] Crohn's disease, unspecified, without complications : Reviewed Floor Clerk Letter Indication: Crohn's disease, unspecified, without complications Rheumatoid arthritis : Reviewed Floor Clerk Letter Indication: Rheumatoid arthritis Benign essential hypertension [...] Benign essential hypertension Rheumatoid arthritis : Reviewed Floor Clerk Letter Indication: Rheumatoid arthritis Crohn's disease, unspecified, without complications : Reviewed Floor Clerk Letter Indication: Crohn's disease, unspecified, without complications [...] mgmt Indication: Hypercholesterolemia Rheumatoid arthritis : Reviewed Floor Clerk Letter Indication: Rheumatoid arthritis Benign essential hypertension [...] - Strool Based DNA Test, CRC SCREEN (19497)Indication: Colon cancer screening (Renamed from Encounter for screening for malignant neoplasm of colon) On: 4-Unb-395404:57 Request URINALYSIS, W/ MICRO (47176)Indication: Benign essential hypertension On: 6-Rni-945028:53 Request MICROALBUMIN: CREATININE RATIO (56796) AND (34255)Indication: Benign essential hypertension On: 4-Mpk-378859:53 Request CALCIFIDIOL (41201) VIT D 25Indication: Vitamin D deficiency, unspecified On: 9-Auq-213376:52 Request LIPOPROTEIN, BLD, BY NMR (26481)Indication: Hypercholesterolemia On: 1-Ppx-319477:52 Request TSH (92458)Indication: Hypercholesterolemia On: 46-Gsw-884987:24 Request URINALYSIS, W/ MICRO (29262)Indication: Benign essential hypertension On: :24 Request MICROALBUMIN: CREATININE RATIO (23798) AND (92382)Indication: Benign essential hypertension On: :24 Request LIPID PANEL (40648)Indication: Hypercholesterolemia On: :24 Request Lipid Panel (08261)Indication: Hypercholesterolemia On: 38-Jwd-667299:52 Request HEPATIC FUNCTION PANEL (73755)Indication: Hypercholesterolemia On: 75-Bdm-005971:52 Request LIPID PANEL (67251)Indication: Hypercholesterolemia On: 23-Yys-645016:13 Request TSH (11417)Indication: Hypercholesterolemia On: 99-Ewp-039066:13 Request URINALYSIS, W/ MICRO (24976)Indication: Benign essential hypertension On: :13 Request MICROALBUMIN: CREATININE RATIO (33982) AND (24883)Indication: Benign essential hypertension On: 11-Xxf-108336:13 Request METABOLIC PANEL, COMPREHENSIVE (34418)Indication: Benign essential hypertension On: :13 Request CBC W/AUTO DIFF WBC (13013)Indication: Benign essential hypertension On: 14-Ubx-165821:13 Request CALCIFIDIOL (68130) VIT D 25Indication: Vitamin D deficiency, unspecified On: 59-Zye-766126:12 Request UPEP (06255)Indication: Elevated blood protein On: :27 Request SPEP (66617)Indication: Elevated blood protein On: 03-Bro-962228:27 Request Lipid Panel (92769)Indication: Hypercholesterolemia On: :14 Request MICROALBUMIN: CREATININE RATIO (91002) AND (98469)Indication: Benign essential hypertension On: :14 Request TSH (97682)Indication: Benign essential hypertension On: :14 Request CBC WITH MANUAL DIFF (04129)Indication: Benign essential hypertension On: :13 Request Metabolic Panel, Comprehensive (60201)Indication: Benign essential hypertension On: :13 Request URINALYSIS (31358)Indication: Benign essential hypertension On: 89-Wds-312486:13 Request CALCIFEDIOL (60140)Indication: Osteoporosis On: 18-Tgp-834102:12 Request Thin prep Pap (98147)Indication: Well woman exam On: 2-Eoo-720799:49 Request Comments: swabbed vaginal lining Planned Procedures DEXA SCAN AXIAL SKELETON (06718)By: On: 17-Jul-2018 Intent Sade Lambert DO, DO, Kathleen SCREENING DIGITAL TOMOSYNTHESIS OF On: 17-Jul-2018 Intent BREAST (57565)By: Sade Lambert DO, DO, Kathleen X-RAY OF CERVICAL SPINE, TWO VIEWS On: 17-Jul-2018 Intent (68463)By: Sade Lambert DO, DO, Kathleen ELECTROCARDIOGRAM, COMPLETE (ECG) On: 17-Jul-2018 Intent (71521)By: Sade Lambert DO Comments: nsr no acute chg DO, Sade ELECTROCARDIOGRAM, COMPLETE (ECG) On: 07-Jun-2016 Intent (37246)By: Sade Lambert DO Comments: sinus ventura no acute chg DO, Sade Pelvic and Breast, Medicare On: 07-Jun-2015 Intent (G0101)By: Sade Lambert DO, DO, Kathleen MAMMOGRAM, SCREENING, BOTH BREAST On: 07-Jun-2015 Intent ([id number])By: Sade Lambert DO, DO, Kathleen EKG ([id number])By: Sade Lambert DO On: 17-May-2015 Intent Sade Lambert DO Comments: nsr no acute chg EKG ([id number])By: Sade Lambert DO On: 29-Mar-2013 Intent Sade Lambert DO Comments: sinus ventura - first degree AV block -- no new chg EKG ([id number])By: Sade Lambert DO On: 25-Apr-2011 Intent Sade Lambert DO Comments: nsr no acute chg Pelvic and Breast, Medicare On: 26-May-2009 Intent (G0101)By: Renita Richardson LPN MAMMOGRAM, SCREENING, BOTH BREASTS On: 26-May-2009 Intent ([id number])By: Renita Richardson LPN EKG ([id number])By: Sade Lambert DO On: 31-Mar-2008 Intent Sade [...] providers contributing to the patient's care are family practice md. Encounter Diagnosis: Benign essential hypertension (401.1), BMI [...] bathroom. The [facility]: PAP smear (unsure), mammography (unsure) and colonoscopy (Dr. Wesley 2012). The patient does have durable power of attorney recruiter and living will. The patient has noticed lack of energy. Other providers contributing to the patient's care are coater associate (Dr. Rudolph), gastrologist (Dr. Wesley) and family practice md (Dr. Brooks).Encounter Diagnosis: Annual Medicare Physical (V70.0), [...]
--- OUTSIDE RECORDS SUMMARY | 2018-11-10 07:42 | XMS RPT_ITS ---
:1940 Author Organization OHIP Support Name Relationship Address Phone MARIA C, ALKA Unavailable [address] + [place] [address] R Unavailable Unavailable Unavailable MARIA C, ALKA Unavailable [address] + [place] [address] R Unavailable Unavailable Unavailable MARIA C, ALKA Unavailable [address] + [place] [address] R Unavailable Unavailable Unavailable MARIA C, ALKA Unavailable [address] + [place] [address] R Unavailable Unavailable Unavailable MARIA C, ALKA Unavailable [address] + [place] [address] R Unavailable Unavailable Unavailable MARIA C, ALKA Unavailable [address] + [place] [address] R Unavailable Unavailable Unavailable MARIA C, AKLA Unavailable [address] + [place] [address] R Unavailable Unavailable Unavailable MARIA C, ALKA Unavailable [address] + [place] [address] R Unavailable Unavailable Unavailable MARIA C, ALKA Unavailable [address] + [place] [address] R Unavailable Unavailable Unavailable MARIA C, ALKA Unavailable [address] + [place] [address] R Unavailable Unavailable Unavailable MARIA C, ALKA Unavailable [address] + [place] [address] R Unavailable Unavailable Unavailable MARIA C, ALKA Unavailable [address] + [place] [address] R Unavailable Unavailable Unavailable MARIA C, ALKA Unavailable [address] + [place] [address] R Unavailable Unavailable Unavailable MARIA C, ALKA [facility] + [place] [address] R Unavailable Unavailable Unavailable MARIA C, ALKA [facility] + [place] [address] R Unavailable Unavailable Unavailable Care Team Providers [...] SOURCE 09/10/2018 Unknown Z78.0 - Cassie, [place] Asymptomatic [facility] menopausal state / Hospital Z78.0(ICD-10) Repository 09/10/2018 Unknown Z12.31 - Encounter Cassie, [place] for screening [facility] mammogram for Hospital malignant neoplasm Repository of breast / Z12.31(ICD-10) 08/10/2018 Unknown M54.12 - Cassie, [place] Radiculopathy, [facility] cervical region / Hospital M54.12(ICD-10) Repository 07/16/2018 Unknown M05.70 - Cassie, Active [place] 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[facility] arthritis with Hospital rheumatoid factor Repository of unspecified site without organ or systems involvement / M05.70(ICD-10) PROCEDURES PROCEDURES No Procedure Records FoundRESULTS RESULTS CBC W/DIFF, AUTOMATED Collected: 10/22/2018 Status: F Source: [place] 10:01 AM [facility] [place] [place] REPOSITORY TYPE CODE TESTS RESULT OUT OF RANGE REFERENCE UNITS LAB L100.1000 4.4-11.0 K/mm3 Normal WBC 7.4 LAB L100.1200 4.2-5.4 M/mm3 Normal RBC 4.50 LAB L100.1300 12.0-15.0 g/dl Normal HGB 13.9 LAB L100.1400 37-47 % Normal HCT 43.0 LAB L100.1500 81-99 fL Normal MCV 95.6 LAB L100.1600 27.0-32.0 pg Normal MCH 30.9 LAB L100.1700 32-36 g/gl Normal MCHC 32.3 LAB L100.1810 11.6-14.6 % Normal RDW CV 14.4 LAB L100.1820 35.1-43.9 fl High RDW SD 50.3 LAB L100.1900 150-450 K/mm3 Normal PLT 309 LAB L100.2000 6.2-12.0 fl Normal MPV 9.1 LAB L100.2100 47-70 % Normal NEUT% 56.0 LAB L100.2200 19-41 % Normal LY% 33.3 LAB L100.2300 0-10 % Normal MONO% 7.6 LAB L100.2400 0-5 % Normal EO% 2.6 LAB L100.2500 0-1 % Normal BASO% 0.4 LAB L100.2550 0.0-0.9 % Normal IM GRAN % 0.100 Result Comment: IG% - Immature Granulocytes (promyelocytes, myelocytes and metamyelocytes) > 1% indicates that a LEFT SHIFT is Present. LAB L100.2620 2.0-7.7 X10 3/uL Normal Absolute Neut 4.1 LAB L100.2720 0.83-4.51 X10 3/ul Normal Absolute Lymph 2.46 Performed By: #### L100.0100 #### [facility] [address] [place], [place], [address] URINALYSIS, COMPLETE Collected: 10/22/2018 Status: F Source: [place] 10:01 AM [facility] [place] [place] REPOSITORY Order Comment: How was Urine Obtained? CLEAN CATCH TYPE CODE TESTS RESULT OUT OF RANGE REFERENCE UNITS LAB L400.3000 Yellow COLOR Normal Yellow LAB L400.3050 Clear Normal CLARITY Clear LAB L400.3200 Normal mg/dl Normal GLUCOSE, UR Normal LAB L400.3300 Negative mg/dL Normal BILIRUBIN URINE Negative LAB L400.3400 Negative mg/dl Normal KETONE UR Negative LAB L400.3465 1.002-1.030 Normal SP.GR. DIPSTX 1.010 LAB L400.3550 5.0 - 8.0 pH UR Normal 7.0 LAB L400.3600 Negative mg/dl PROT Normal DIPSTX Negative LAB L400.3700 Normal mg/dl Normal UROBILI Normal LAB L400.3750 Negative Normal NITRITE UR Negative LAB L400.3780 Negative /ul Normal OCCULT BLOOD-UR Negative LAB L400.3800 Negative /ul High LEUK 25 ESTERASE LAB L400.4050 0-5 /hpf WBC Normal 0-5 SEEN LAB L400.4100 0-5 /hpf 0 Normal RBC-UA SEEN LAB L400.4150 5-10 /hpf SQUAM Normal EPI 0-5 SEEN LAB L400.4300 None Seen /hpf 0 Normal BACTERIA SEEN LAB L400.4350 <or=2+ /hpf 0 Normal MUCUS, URINE SEEN Performed By: #### L400.0001 #### [facility] [address] [place], [place], [address] MICROALB:CREAT Collected: 10/22/2018 Status: F Source: [place] RATIO,RANDOM UR 10:01 AM [facility] [place] [place] REPOSITORY TYPE CODE TESTS RESULT OUT OF RANGE REFERENCE UNITS LAB L501.1200 NO RANGE EST. mg/dL Normal UR CREAT 45.20 LAB L502.0500 NO RANGE EST. mg/L Normal 6.1 MICROALBUMIN ,UR LAB L502.0600 <30 mg/g CRE mg/g CRE Normal 13.6 MALB:CREAT Performed By: #### L502.0250 #### [facility] [address] [place], [address] COMPREHENSIVE METABOLIC Collected: 10/22/2018 Status: F Source: [place] [facility] 10:01 AM [facility] [place] [place] REPOSITORY TYPE CODE TESTS RESULT OUT OF RANGE REFERENCE UNITS LAB L501.0100 74-106 mg/dL Normal GLU 86 Result Comment: Please note revised GLUCOSE reference range effective 2017. LAB L501.1000 7-18 mg/dL Normal BUN 11 LAB L501.1100 0.55-1.02 mg/dL Normal CREAT,SERUM 0.74 Result Comment: The validity of the calculated GFR AND GFRAA in patients over 70 years has not been determined. Clinical correlation is essential. LAB L501.1110 >60 mL/min Normal EST GFR 81 Result Comment: Non- GFR Calc LAB L501.1115 >60 mL/min Normal EST GFR - AA 98 Result Comment: GFR Calc LAB L501.1300 10-20 RATIO Normal BUN/CRE 14.8 LAB L501.1500 6.4-8.2 g/dL T Normal PROT 7.3 LAB L501.1800 3.2-5.0 g/dL Normal ALB 3.5 LAB L501.1950 2.2-4.2 g/dL Normal GLOB 3.8 LAB L501.2000 0.9-2.4 RATIO Normal A/G 0.9 LAB L501.2200 8.5-10.1 mg/dL CA Normal 9.0 LAB L501.4100 15-37 U/L Normal AST 20 LAB L501.4305 45-117 U/L Normal ALK P 91 LAB L501.4405 13-56 U/L Normal ALT 21 LAB L501.4600 0.20-1.00 mg/dL T Normal BILI 0.70 LAB L501.5300 136-145 mmol/L NA Normal 138 LAB L501.5600 3.5-5.1 mmol/L K Normal 3.9 LAB L501.5900 98-107 mmol/L CL Normal 100 LAB L501.6100 21.0-32.0 mmol/L Normal CO2 28.0 LAB L501.6200 5-15 Normal GAP 10 Performed By: #### L500.4050 #### [facility] [address] [place], [address] VITAMIN D,25 HYDROXY Collected: 10/22/2018 Status: F Source: [place] [facility] TYPE CODE TESTS RESULT OUT OF RANGE REFERENCE UNITS LAB L506.1000 29.95-100.01 ng/mL Normal Vitamin D 47.0 25-OH Result Comment: Vitamin D 25(OH) Status Range Deficiency <20 ng/mL (50nmol/L) Insuffciency 20 - 30 ng/mL (50 - 75 nmol/L) Sufficiency 30 - 100 ng/mL (75 - 250 nmol/L) Toxicity >100 ng/mL (>250 nmol/L) Performed By: #### L506.1000 #### [facility] [address], [address] NMR LIPOPROFILE Collected: 10/22/2018 Status: F Source: [place] 10:[facility] RE[facility]IT[facility] TYPE CODE TESTS RESULT OUT OF RANGE REFERENCE UNITS LAB L3500.0250 LIPIDS Normal . LAB L3500.0300 100-199 mg/dL CHOLESTEROL Normal TOT 159 LAB L3500.0350 0-99 mg/dL LDL-C Normal 77 Result Comment: Optimal < 100 Above optimal 100 - 129 Borderline 130 - 159 High 160 - 189 Very high > 189 LDL-C is inaccurate if patient is non-fasting. LAB L3500.0400 >39 mg/dL HDL-C Normal 63 LAB L3500.0450 0-149 mg/dL TRIGLYCERIDES Normal 97 LAB L3500.0560 <1000 nmol/L LDL-P Normal 976 Result Comment: Low < 1000 Moderate 1000 - 1299 Borderline-High 1300 - 1599 High 1600 - 2000 Very High > 2000 LAB L3500.0575 Normal LD HD PARTICLES . LAB L3500.0580 >=30.5 umol/L Normal HDL-P TOTAL 42.8 LAB L3500.0585 <=527 nmol/L Normal SMALL LDL-P 492 LAB L3500.0590 >20.5 nm Normal LDL SIZE 21.1 Result Comment: INTERPRETATIVE INFORMATION PARTICLE CONCENTRATION AND SIZE <--Lower CVD Risk Higher CVD Risk--> LDL AND HDL PARTICLES Percentile in Reference Population HDL-P (total) High 75th 50th 25th Low >34.9 34.9 30.5 26.7 <26.7 Small LDL-P Low 25th 50th 75th High <117 117 527 839 >839 LDL Size <-Large (Pattern A)-> <-Small (Pattern B)-> 23.0 20.6 20.5 19.0 Small LDL-P and LDL Size are associated with CVD risk, but not after LDL-P is taken into account. These assays were developed and their performance characteristics determined by [employer]. These assays have not been cleared by the [place] Food and Drug Administration. The clinical utility of these laboratory values have not been fully established. LAB L3500.0595 Normal INS RES/DIAB RK . LAB L3500.0875 <=45 Normal LP-IR SCORE 37 Result Comment: INSULIN RESISTANCE MARKER <--Insulin Sensitive Insulin Resistant--> Percentile in Reference Population Insulin Resistance Score LP-IR Score Low 25th 50th 75th High <27 27 45 63 >63 LP-IR Score is inaccurate if patient is non-fasting. The LP-IR score is a laboratory developed index that has been associated with insulin resistance and diabetes risk and should be used as one component of a physician's clinical assessment. The LP-IR score listed above has not been cleared by the US Food and Drug Administration. Performed at: - [facility] [id number] Beef Ribber: Catracho Oliver MD, Phone: [phone] Performed By: #### L3500.0000 #### [facility] (refer to report for specific site) refer to report for address and phone number SCREENING MAMM (CAD), Observed: 09/10/2018 Status: F Source: [place] BILAT 2:27 PM [facility] REPOSITORY [facility] Imaging Services [address] [place] [address] SCREENING MAMM (CAD), BILAT MR#: [id number] Acct: [id number] Name: TRES RAMIRES Rep #: [id number] : 1940 F 78 From: Bartolo Knight MD PCP: Sade Matthews DO Status: REG CLI Study: SCREENING MAMM (CAD), BILAT Date of Exam: 09/10/18 Exam# [id number] Ordering Dr: Sade Matthews DO MAMMOGRAPHY - [...] delay biopsy of a clinically suspicious abnormality. [id number] Electronically Signed: Bartolo Knight MD at 15:27 EST Tel [phone], Service support , CC: Sade Matthews DO Insurance Service Representative: Signed DEXA BONE DENSITY Observed: 09/10/2018 Status: F Source: [place] STUDY 2:27 PM [facility] [place] [place] REPOSITORY [facility] Imaging Services [address] [place] [address] Dexa Bone Density Study MR#: [id number] Acct: [id number] Name: TRES RAMIRES Rep #: [id number] : 1940 F 78 From: Bartolo Knight MD PCP: Sade Matthews DO Status: REG CLI Study: Dexa Bone Density Study Date of Exam: 09/10/18 Exam# [id number] Ordering Dr: Sade Matthews DO STUDY: DUAL [...] Bartolo Knight MD at 15:56 EST Tel [phone], Service support , CC: Sade Matthews DO Insurance Service Representative: Signed INITAL EVALUATION (1) Observed: 07/23/2018 Status: F Source: [place] - PT 4:21 PM [facility] [place] [place] REPOSITORY [facility] [place] [address] Fax REHABILITATION SERVICES INITIAL EVALUATION MR#: [id number] Acct: [id number] Name: TRES RAMIRES Rep #: [id number] : 1940 78 From: Lesli Andrews DPT Referring Dr.: Sade Matthews DO Status: REG RCR Insurance: MEDICARE PART A B [facility] [employer] Patient's Visit Information TRES RAMIRES is a [...] to maintain strength. Very active, volunteering at [employer]. - Objective Gait: WFL. Posture: rounded shoulders, [...] to be FAXED BACK to us at [phone] for Medicare purposes. Please let me know if there are questions or concerns regarding this plan of care. Physician Signature: Date: <Electronically signed by Lesli Andrews DPT> 07/23/18 1621 CC: Sade Matthews DO ELR Signed For Medicare only, by signing this I certify the plan of care. Physicians Signature Date CERV SPINE 2 OR 3 Observed: 07/17/2018 Status: F Source: [place] VIEWS 1:18 PM [facility] [place] [place] REPOSITORY [facility] Imaging Services [address] [place] [address] Cerv Spine 2 or 3 Views MR#: [id number] Acct: [id number] Name: TRES RAMIRES Johnathon Rep #: [id number] : 1940 F 78 From: Nafisa Lovett MD PCP: Sade Matthews DO Status: REG CLI Study: Cerv Spine 2 or 3 Views Date of Exam: 07/17/18 Exam# [id number] Ordering Dr: Sade Matthews DO STUDY: X-RAY [...] Service support , CC: Sade Matthews DO Insurance Service Representative: Signed CBC W/DIFF, AUTOMATED Collected: 07/16/2018 Status: F Source: [place] 12:45 PM [facility] [place] [place] REPOSITORY TYPE CODE TESTS RESULT OUT OF [...] Lymph 2.37 Performed By: #### L100.0100 #### [facility] [address] [place], [address] COMPREHENSIVE METABOLIC Collected: 07/16/2018 Status: F Source: [facility] 12:45 PM [facility] [place] [place] REPOSITORY TYPE CODE TESTS RESULT OUT OF [...] GAP 6 Performed By: #### L500.4050 #### [facility] [address] [place], [address] CBC W/DIFF, AUTOMATED Collected: 04/09/2018 Status: F Source: [place] 12:55 PM [facility] [place] [place] REPOSITORY TYPE CODE TESTS RESULT OUT OF [...] Lymph 2.42 Performed By: #### L100.0100 #### [facility] [address] [place], [address] COMPREHENSIVE METABOLIC Collected: 04/09/2018 Status: F Source: [facility] 12:55 PM [facility] [place] [place] REPOSITORY TYPE CODE TESTS RESULT OUT OF [...] GAP 8 Performed By: #### L500.4050 #### [facility] [address] [place], [address] CBC W/DIFF, AUTOMATED Collected: 12/25/2017 Status: F Source: [place] 12:50 PM [facility] [place] [place] REPOSITORY TYPE CODE TESTS RESULT OUT OF [...] Lymph 2.42 Performed By: #### L100.0100 #### [facility] [address] [place], [place], [address] COMPREHENSIVE METABOLIC Collected: 12/25/2017 Status: F Source: [facility] 12:50 PM [facility] [place] [place] REPOSITORY TYPE CODE TESTS RESULT OUT OF [...] GAP 8 Performed By: #### L500.4050 #### [facility] [address] [place], [address] ALLERGIES ALLERGIES DATE TYPE / CODE NAME / CODE REACTION SEVERITY SOURCE 09/24/2018 Drug No Known Unknown [facility] Allergy/4160 Allergies/F00 Hospital 07636(SNOMED 8856862(RXNOR Repository CT) M) ENCOUNTERS ENCOUNTERS ADMIT/DISCHARGE ACCOUNT ADMITTING ENCOUNTER LOCATION SOURCE NUMBER CLASS 10/29/2018 [id number] Ambulatory [place] 9 [facility] ing:MEDOUTP Repository 10/22/2018 [id number] Ambulatory [place] 1 [facility] ing:LAB Repository 09/24/2018 [id number] [place] 6 [facility] ing:MEDOUTP Repository 09/10/2018 [id number] Ambulatory [place] [facility] Hospital ing:OPBD Repository 08/20/2018 [id number] Ambulatory [place] 4 [facility] ing:MEDOUTP Repository 07/23/2018 [id number] Ambulatory [place] [facility] Hospital ing:PT Repository 07/17/2018 [id number] Ambulatory [place] 1 [facility] ing:HPRAD Repository 07/16/2018 [id number] Ambulatory [place] 2 [facility] ing:MEDOUTP Repository 06/11/2018 [id number] Ambulatory [place] 5 [facility] ing:MEDOUTP Repository 05/11/2018 [id number] Ambulatory [place] 0 [facility] ing:MEDOUTP Repository 04/09/2018 [id number] Ambulatory [place] 5 [facility] ing:MEDOUTP Repository 03/05/2018 [id number] Ambulatory [place] 7 [facility] ing:MEDOUTP Repository 01/29/2018 [id number] Ambulatory [place] 4 [facility] ing:MEDOUTP Repository 12/25/2017 [id number] [place] 7 [facility] ing:MEDOUTP Repository 11/20/2017 [id number] Ambulatory [place] 0 [facility] ing:MEDOUTP Repository PAYERS PAYERS ENCOUNTER GUARANTOR PAYER SUBSCRIBER SOURCE 10/29/2018 TRES L [id number] Primary TRES L WADEDOB: [place] [address] Insurance:MEDICARE [id number] [facility] [address]Vnm: (330) Number: Repository [phone] () [id number] Date:2018-09-24 10/29/2018 Secondary TRES L WADEDOB: [place] Insurance:ULMERIAL [id number] [facility] COPolicy Number: Repository [id number] Date:[id number] [address]XH: 10/29/2018 Tertiary NOT GIVENUNK [place] Insurance:SELF PAY [facility] Number: Effective Repository Date:2018-09-24 10/22/2018 TRES L [id number] Primary TRES L WADEDOB: [place] [address] Insurance:MEDICARE [id number] Memorial Hospital [address]Jhk: (330) Number: Repository [phone] () [id number] Date:2018-10-22 10/22/2018 Secondary TRES L WADEDOB: [place] Insurance:COLONIAL [id number] Health [facility] COPolicy Number: Repository [id number] Date:9983-85-54[address], [place] [address]GE: 10/22/2018 Tertiary NOT GIVENUNK [place] Insurance:SELF PAY [facility] Number: Effective Repository Date:2018-10-22 09/24/2018 TRES L [id number] Primary TRES L WADEDOB: [place] [address] Insurance:MEDICARE [id number] Memorial Hospital [address]Xkz: (330) Number: Repository [phone] () [id number] Date:2018-08-20 09/24/2018 Secondary TRES L WADEDOB: [place] Insurance:ULMERIAL [id number] Health Caldwell COPolicy Number: Repository [id number] Date:1974-41-68[address], [place] [address]XK: 09/24/2018 Tertiary NOT GIVENUNK [place] Insurance:SELF PAY [facility] Number: Effective Repository Date:2018-08-20 09/10/2018 TRES L [id number] Primary TRES L WADEDOB: [place] [address] Insurance:MEDICARE [id number] Memorial Hospital [address]Qpx: (330) Number: Repository [phone] () [id number] Date:2018-07-17 09/10/2018 Secondary TRES L WADEDOB: [place] Insurance:ULMERIAL [id number] Health [facility] COPolicy Number: Repository [id number] Date:2495-46-80[address], [place] [address]LG: 09/10/2018 Tertiary NOT GIVENUNK [place] Insurance:SELF PAY [facility] Number: Effective Repository Date:2018-07-17 08/20/2018 TRES L [id number] Primary TRES L WADEDOB: [place] [address] Insurance:MEDICARE [id number] [place] [id number]: (330) Number: Repository [phone] () [id number] Date:2018-07-16 08/20/2018 Secondary TRES L WADEDOB: [place] Insurance:COLONIAL [id number] Health Caldwell COPolicy Number: Repository [id number] Date:3318-43-84JN [facility] [address], [place] [address]UI: 08/20/2018 Tertiary NOT GIVENUNK [place] Insurance:SELF PAY [facility] Number: Effective Repository Date:2018-07-16 07/23/2018 TRES L [id number] Primary TRES L WADEDOB: [place] [address] Insurance:MEDICARE [id number] Memorial Hospital [address]Bgk: (330) Number: Repository [phone] () [id number] Date:2007-02-10 07/23/2018 Secondary TRES L WADEDOB: [place] Insurance:ULMERIAL [id number] Health [facility]dwell COPolicy Number: Repository [id number] Date:0879-06-01ZV [facility] [address], [place] [address]RS: 07/23/2018 Tertiary NOT GIVENUNK [place] Insurance:SELF PAY [facility] Number: Effective Repository Date:2018-07-17 07/17/2018 TRES L [id number] Primary TRES L WADEDOB: [place] [address] Insurance:MEDICARE [id number] Memorial Hospital [address]Tfm: (330) Number: Repository [phone] () [id number] Date:2018-07-17 07/17/2018 Secondary TRES L WADEDOB: [place] Insurance:COLONIAL [id number] Health [facility] COPolicy Number: Repository [id number] Date:3199-29-76BA [facility] [address], [place] [address]ZN: 07/17/2018 Tertiary NOT GIVENUNK [place] Insurance:SELF [facility]Y [facility] Number: Effective Repository Date:2018-07-17 07/16/2018 TRES L [id number] Primary TRES L WADEDOB: [place] [address] Insurance:MEDICARE [id number] Memorial Hospital [address]Bmi: (330) Number: Repository [phone] () [id number] Date:2018-06-11 07/16/2018 Secondary TRES L WADEDOB: [place] Insurance:COLONIAL [id number] Health [facility] COPolicy Number: Repository [id number] Date:0175-99-07YI [facility] [place] [address]NJ: 07/16/2018 Tertiary NOT GIVENUNK [place] Insurance:SELF PAY [facility] Number: Effective Repository Date:2018-06-11 06/11/2018 TRES L [id number] Primary TRES L WADEDOB: [place] [address] Insurance:MEDICARE [id number] Memorial Hospital [address]Gdd: (330) Number: Repository [phone] () [id number] Date:2018-05-11 06/11/2018 Secondary TRES L WADEDOB: [place] Insurance:ULMERIAL [id number] Health [facility] COPolicy Number: Repository [id number] Date:8969-49-14[address], [place] [address]AA: 06/11/2018 Tertiary NOT GIVENUNK [place] Insurance:SELF PAY [facility] Number: Effective Repository Date:2018-05-11 05/11/2018 TRES L [id number] Primary TRES L WADEDOB: [place] [address] Insurance:MEDICARE [id number] Memorial Hospital [address]Aie: (330) Number: Repository [phone] () [id number] Date:2018-04-09 05/11/2018 Secondary TRES L WADEDOB: [place] Insurance:COLONIAL [id number] Health [facility] COPolicy Number: Repository [id number] Date:3693-84-49[address], [place] [address]YR: 05/11/2018 Tertiary NOT GIVENUNK [place] Insurance:SELF PAY [facility] Number: Effective Repository Date:2018-04-09 04/09/2018 TRES L [id number] Primary TRES L WADEDOB: [place] [address] Insurance:MEDICARE [id number] Island Hospital A [facility] [address]Far: (330) Number: Repository [phone] () [id number] Date:2018-03-05 04/09/2018 Secondary TRES L WADEDOB: [place] Insurance:COLONIAL [id number] Health [facility] COPolicy Number: Repository [id number] Date:7103-61-93ID [facility] [address], [place] [address]BU: 04/09/2018 Tertiary NOT GIVENUNK [place] Insurance:SELF PAY [facility] Number: Effective Repository Date:2018-03-05 03/05/2018 TRES L [id number] Primary TRES L WADEDOB: [place] [address] Insurance:MEDICARE [id number] PART A [facility] [address]Tia: (330) Number: Repository [phone] () [id number] Date:2018-01-29 03/05/2018 Secondary TRES L WADEDOB: [place] Insurance:COLONIAL [id number] Health [facility] COPolicy Number: Repository [id number] Date:8090-34-91[address], [place] [address]SJ: 03/05/2018 Tertiary NOT GIVENUNK [place] Insurance:SELF PAY [facility] Number: Effective Repository Date:2018-01-29 01/29/2018 Tres L [id number] Primary Tres L WadeDOB: [place] [address] Insurance:MEDICARE [id number] Island Hospital A [facility] [address]Lyv: (330) Number: Repository [phone] () [id number] Date:2017-12-25 01/29/2018 Secondary Tres L WadeDOB: [place] Insurance:COLONIAL [id number] Health [facility] COPolicy Number: Repository [id number] Date:8331-57-[address], [place] [address]GA: 01/29/2018 Tertiary NOT GIVENUNK [place] Insurance:SELF PAY [facility] Number: Effective Repository Date:2017-12-25 12/25/2017 Tres L [id number] Primary Tres L WadeDOB[address] [place] [address] Insurance:MEDICARE [id number] [facility] Hospital [facility] [address]Mpr: (330) Number: Repository [phone] () [id number] Date:2017-11-20 12/25/2017 Secondary Tres L WadeDOB: [place] Insurance:ULMERIAL [id number] [facility] COPolicy Number: Repository [id number] Date:8766-53-53ZJ [address], [place] [address]XW: 12/25/2017 Tertiary NOT GIVENUNK [place] Insurance:SELF PAY [facility] Number: Effective Repository Date:2017-11-20 11/20/2017 Tres L [id number] Primary Tres L WadeDOB: [place] [address] Insurance:MEDICARE [id number] Island Hospital A [facility] [address]Kbc: (330) Number: Repository [phone] () [id number] Date:2017-10-16 11/20/2017 Secondary Tres L WadeDOB: [place] Insurance:COLONIAL [id number] Health [facility] COPolicy Number: Repository [id number] Date:0740-95-19[address], [place] [address]WK: 11/20/2017 Tertiary NOT GIVENUNK [place] Insurance:SELF PAY Community [facility] Number: Effective Repository Date:2017-10-16
== END ==
PROVIDERS: Family Provider Internal Medicine; PCP Internal Medicine; Referring Provider Internal Medicine Rheumatology; Visit Provider Internal Medicine Rheumatology
DX: M06.9 Rheumatoid arthritis, unspecified (principal)
CPT/HCPCS: 96413; J7050; A4216; J0129

== ENCOUNTER → 2018-10-22 09:56 | Outpatient (CLI) | payer MEDICARE, OTHER, SELFPAY ==
[2018-09-24 12:57] VITALS: BMI 22.6
[2018-10-22 10:05] LABS: Bacteria 0 SEEN /hpf (None Seen); Mucous, Urine 0 SEEN /hpf (<or=2+); Red Blood Cells-Urine 0 SEEN /hpf (0-5)
[2018-10-22 10:34] LABS: Absolute Lymphocyte Count 2.46 X10^3/ul (0.83-4.51); Absolute Neutrophil Count 4.1 X10^3/uL (2.0-7.7); Basophil# 0.03 X10^3/uL; Basophil% 0.4 % (0-1); Eosinophil# 0.19 X10^3/uL; Eosinophils% 2.6 % (0-5); Hemoglobin 13.9 g/dl (12.0-15.0); Lymphocyte # 2.46 X10^3/ul (4.0); Lymphocyte % 33.3 % (19-41); Mean Corp Hgb Conc 32.3 g/gl (32-36); Mean Corpuscular Hgb 30.9 pg (27.0-32.0); Mean Corpuscular Volume 95.6 fL (81-99); Mean Platelet Vol. 9.1 fl (6.2-12.0); Monocyte# 0.56 X10^3/uL; Monocyte% 7.6 % (0-10); Neutrophil # 4.13 X10^3/uL (2.7-7.7); Platelet Count 309 K/mm3 (150-450); RBC Distribution Width CV 14.4 % (11.6-14.6); RBC Distribution Width SD 50.3 fl (35.1-43.9); White Blood Count 7.4 K/mm3 (4.4-11.0)
[2018-10-22 10:35] LABS: POSITIVE COUNT NO; POSITIVE DIFFERENTIAL NO; POSITIVE MORPHOLOGY NO
[2018-10-22 10:36] LABS: Color, Urine Yellow (Yellow); Glucose, Dipstick Normal (Normal); Ketone-Dipstick Negative (Negative); Leukocyte Esterase-Dipstick 25 /ul (Negative); Nitrite-Dipstick Negative (Negative); Occult Blood-Urine Negative /ul (Negative); Protein-Dipstick Negative (Negative); Urine Bilirubin Dipstick Negative (Negative); Urine Clarity Clear (Clear); Urine Urobilinogen Normal (Normal)
[2018-10-22 10:45] LABS: Squamous Epithelial Cells - UA 0-5 SEEN /hpf (5-10); White Blood Cells 0-5 SEEN /hpf (0-5)
[2018-10-22 11:01] LABS: Microalbumin,Random Urine 6.1 mg/L (NO RANGE EST.); Microalbumin:Creatinine Ratio 13.6 mg/g CRE (<30 mg/g CRE)
[2018-10-22 11:02] LABS: BUN 11 mg/dL (7-18); Creatinine, Serum 0.74 mg/dL (0.55-1.02); EST Glomerular Filtration Rate 81 mL/min (>60); Glucose 86 mg/dL (74-106)
[2018-10-22 11:03] LABS: ALB/GLOB Ratio 0.9 RATIO (0.9-2.4); AST(SGOT) 20 U/L (15-37); Alanine Aminotransfer ALT/SGPT 21 U/L (13-56); Albumin, Serum 3.5 g/dL (3.2-5.0); Alkaline Phosphatase 91 U/L (45-117); Anion Gap 10 (5-15); BUN/Creat Ratio 14.8 RATIO (10-20); Chloride 100 mmol/L (98-107); Est Glom Filt Rate - Afr Amer 98 mL/min (>60); Globulin 3.8 g/dL (2.2-4.2); Potassium 3.9 mmol/L (3.5-5.1); Protein, Total 7.3 g/dL (6.4-8.2); Sodium Level 138 mmol/L (136-145)
[2018-10-24 12:07] LABS: CHOLESTEROL TOTAL 159 mg/dL (100-199); HDL-C 63 mg/dL (>39); HDL-P TOTAL 42.8 umol/L (>=30.5); SMALL LDL-P 492 nmol/L (<=527); TRIGLYCERIDES 97 mg/dL (0-149)
[2018-10-24 20:29] LABS: LDL SIZE 21.1 nm (>20.5); LDL-C 77 mg/dL (0-99); LDL-P 976 nmol/L (<1000); LP-IR SCORE ** 37 (<=45)
== END ==
PROVIDERS: Family Provider Internal Medicine; PCP Internal Medicine; Referring Provider Internal Medicine Rheumatology; Visit Provider Internal Medicine Rheumatology
DX: M05.70 Rheumatoid arthritis with rheumatoid factor of unspecified site without organ or systems involvement (principal); M17.0 Bilateral primary osteoarthritis of knee; Z79.899 Other long term (current) drug therapy; K50.90 Crohn's disease, unspecified, without complications; E78.00 Pure hypercholesterolemia, unspecified; E55.9 Vitamin D deficiency, unspecified; I10 Essential (primary) hypertension
CPT/HCPCS: 36415; 80053; 80061; 81001; 82043; 82306; 82570; 83704; 85025

== ENCOUNTER → 2018-10-29 12:23 | Outpatient (CLI) | payer MEDICARE, OTHER, SELFPAY ==
[2018-09-24 12:57] VITALS: BMI 22.6
[2018-10-29 12:51] VITALS: BP 123/66; PULSE 62; RESP 16; TEMP 37; O2SAT 96; BMI 21.9
--- OUTSIDE RECORDS SUMMARY | 2019-01-03 04:30 | XMS RPT_ITS ---
:1940 Author Organization OHIP Support Name Relationship Address Phone MARIA C, ALKA Unavailable [address] + [place] [address] R Unavailable Unavailable Unavailable MARIA C, ALKA Unavailable [address] + [place] [address] R Unavailable Unavailable Unavailable MARIA C, ALKA Unavailable [address] + [place] [address] R Unavailable Unavailable Unavailable MARIA C, ALKA Unavailable [address] + [place] [address] R Unavailable Unavailable Unavailable MARIA C, ALKA Unavailable [address] + [place] [address] R Unavailable Unavailable Unavailable MARIA C, ALKA Unavailable [address] + [place] [address] R Unavailable Unavailable Unavailable MARIA C, ALKA Unavailable [address] + [place] [address] R Unavailable Unavailable Unavailable MARIA C, ALKA Unavailable [address] + [place] [address] R Unavailable Unavailable Unavailable MARIA C, ALKA Unavailable [address] + [place] [address] R Unavailable Unavailable Unavailable MARIA C, ALKA Unavailable [address] + [place] [address] R Unavailable Unavailable Unavailable MARIA C, ALKA Unavailable [address] + [place] [address] R Unavailable Unavailable Unavailable MARIA C, ALKA Unavailable [address] + [place] [address] R Unavailable Unavailable Unavailable MARIA C, ALKA Unavailable [address] + [place] [address] R Unavailable Unavailable Unavailable MARIA C, ALKA [facility]available [facility] + [place] [address] R Unavailable Unavailable Unavailable MARIA C, ALKA [facility] + [place] [address] R Unavailable Unavailable Unavailable Care Team Providers [...] SOURCE 09/10/2018 Unknown Z78.0 - Cassie, Active [place] Asymptomatic [facility] menopausal state / Hospital Z78.0(ICD-10) Repository 09/10/2018 Unknown Z12.31 - Encounter Cassie, Active [place] for screening [facility] mammogram for Hospital malignant neoplasm Repository of breast / Z12.31(ICD-10) 08/10/2018 Unknown M54.12 - Cassie, Active [place] Radiculopathy, [facility] cervical region / Hospital M54.12(ICD-10) Repository 07/16/2018 Unknown M05.70 - Cassie, Active [place] Rheumatoid [facility] arthritis with Hospital rheumatoid factor Repository of unspecified site without organ or systems involvement / M05.70(ICD-10) PROCEDURES PROCEDURES No Procedure Records FoundRESULTS RESULTS CBC W/DIFF, AUTOMATED Collected: 10/22/2018 Status: F Source: [place] 10:01 AM [facility] REPOSITORY TYPE CODE TESTS RESULT OUT OF [...] Lymph 2.46 Performed By: #### L100.0100 #### [facility] [address] [place], [place], [address] URINALYSIS, COMPLETE Collected: 10/22/2018 Status: F Source: [place] 10:01 AM [facility] REPOSITORY Order Comment: How was Urine Obtained? [...] URINE SEEN Performed By: #### L400.0001 #### [facility] [address] [place], [place], [address] MICROALB:CREAT Collected: 10/22/2018 Status: F Source: [place] RATIO,RANDOM UR 10:01 AM [facility] REPOSITORY TYPE CODE TESTS RESULT OUT OF RANGE REFERENCE UNITS LAB L501.1200 NO RANGE EST. mg/dL Normal UR CREAT 45.20 LAB L502.0500 NO RANGE EST. mg/L Normal 6.1 MICROALBUMIN ,UR LAB L502.0600 <30 mg/g CRE mg/g CRE Normal 13.6 MALB:CREAT Performed By: #### L502.0250 #### [facility] [address] [place], [address] COMPREHENSIVE METABOLIC Collected: 10/22/2018 Status: F Source: [place] [facility] 10:01 AM [facility] REPOSITORY TYPE CODE TESTS RESULT OUT OF [...] GAP 10 Performed By: #### L500.4050 #### [facility] [address] [place], [address] VITAMIN D,25 HYDROXY Collected: 10/22/2018 Status: F Source: [place] 10:01 [facility] REPOSITORY TYPE CODE TESTS RESULT OUT OF RANGE REFERENCE UNITS LAB L506.1000 29.95-100.01 ng/mL Normal Vitamin D 47.0 25-OH Result Comment: Vitamin D 25(OH) Status Range Deficiency <20 ng/mL (50nmol/L) Insuffciency 20 - 30 ng/mL (50 - 75 nmol/L) Sufficiency 30 - 100 ng/mL (75 - 250 nmol/L) Toxicity >100 ng/mL (>250 nmol/L) Performed By: #### L506.1000 #### [facility] [address] [facility] [place], [address] NMR LIPOPROFILE Collected: 10/22/2018 Status: F Source: [place] 10:01 [facility] REPOSITORY TYPE CODE TESTS RESULT OUT OF [...] developed and their performance characteristics determined by [employer]. These assays have not been cleared by [...] Food and Drug Administration. Performed at: - [facility] [id number] Hardening Machine Operator: Catracho Oliver MD, Phone: [phone] Performed By: #### L3500.0000 #### [facility] (refer to report for specific site) refer to report for address and phone number SCREENING MAMM (CAD), Observed: 09/10/2018 Status: F Source: [place] BILAT 2:27 PM [facility] REPOSITORY [facility] Imaging Services [address] [place] [address] SCREENING MAMM (CAD), BILAT MR#: [id number] Acct: [id number] Name: TRES RAMIRES Rep #: [id number] : 1940 F 78 From: Bartolo Knight MD PCP: Sade Matthews DO Status: REG CLI Study: SCREENING MAMM (CAD), BILAT Date of Exam: 09/10/18 Exam# [id number] Ordering Dr: Saed Matthews DO MAMMOGRAPHY - BILATERAL SCREENING REASON [...] delay biopsy of a clinically suspicious abnormality. [id number] Electronically Signed: Bartolo Knight MD at 15:27 EST Tel [phone], Service support , CC: Sade Matthews DO Show Operations Supervisor: Signed DEXA BONE DENSITY Observed: 09/10/2018 Status: F Source: [place] STUDY 2:27 PM [facility] REPOSITORY [facility] Imaging Services [address] [place] [address] Dexa Bone Density Study MR#: [id number] Acct: [id number] Name: TRES RAMIRES Rep #: [id number] : 1940 F 78 From: Bartolo Knight MD PCP: Sade Matthews DO Status: REG CLI Study: Dexa Bone Density Study Date of Exam: 09/10/18 Exam# [id number] Ordering Dr: Sade Matthews DO STUDY: DUAL [...] Bartolo Knight MD at 15:56 EST Tel [phone], Service support , CC: Sade Matthews DO Show Operations Supervisor: Signed INITAL EVALUATION (1) Observed: 07/23/2018 Status: F Source: [place] - PT 4:21 PM [facility] REPOSITORY [facility] [place] [address] Fax REHABILITATION SERVICES INITIAL EVALUATION MR#: [id number] Acct: [id number] Name: TRES RAMIRES Rep #: [id number] : 1940 78 From: Lesli Andrews DPT Referring Dr.: Sade Matthews DO Status: REG RCR Insurance: MEDICARE PART A B [facility] [employer] [place] Patient's Visit Information TRES RAMIRES [...] to maintain strength. Very active, volunteering at [employer]. - Objective Gait: WFL. Posture: rounded shoulders, [...] to be FAXED BACK to us at [phone] for Medicare purposes. Please let me know if there are questions or concerns regarding this plan of care. Physician Signature: Date: <Electronically signed by Lesli Andrews DPT> 07/23/18 1621 CC: Sade Matthews DO ELR Signed For Medicare only, by signing this I certify the plan of care. Physicians Signature Date CERV SPINE 2 OR 3 Observed: 07/17/2018 Status: F Source: [place] VIEWS 1:18 PM [facility] REPOSITORY [facility] Imaging Services [address] [place] [address] Cerv Spine 2 or 3 Views MR#: [id number] Acct: [id number] Name: TRES RAMIRES John[place] Rep #: [id number] : 1940 F 78 From: Nafisa Lovett MD PCP: Sade Matthews DO Status: REG CLI Study: Cerv Spine 2 or 3 Views Date of Exam: 07/17/18 Exam# [id number] Ordering Dr: Sade Matthews DO STUDY: X-RAY [...] Service support , CC: Sade Matthews DO Show Operations Supervisor: Signed CBC W/DIFF, AUTOMATED Collected: 07/16/2018 Status: F Source: [place] 12:45 PM [facility] REPOSITORY TYPE CODE TESTS RESULT OUT OF [...] Lymph 2.37 Performed By: #### L100.0100 #### [facility] [address] [place], [address] COMPREHENSIVE METABOLIC Collected: 07/16/2018 Status: F Source: [facility] 12:45 PM [facility] REPOSITORY TYPE CODE TESTS RESULT OUT OF [...] GAP 6 Performed By: #### L500.4050 #### [facility] [address] [place], [address] CBC W/DIFF, AUTOMATED Collected: 04/09/2018 Status: F Source: [place] 12:55 PM [facility] REPOSITORY TYPE CODE TESTS RESULT OUT OF [...] Lymph 2.42 Performed By: #### L100.0100 #### [facility] [address] [place], [address] COMPREHENSIVE METABOLIC Collected: 04/09/2018 Status: F Source: [facility] 12:55 PM [facility] REPOSITORY TYPE CODE TESTS RESULT OUT OF [...] GAP 8 Performed By: #### L500.4050 #### [facility] [address] [place], [address] CBC W/DIFF, AUTOMATED Collected: 12/25/2017 Status: F Source: [place] 12:50 PM [facility] REPOSITORY TYPE CODE TESTS RESULT OUT OF [...] Lymph 2.42 Performed By: #### L100.0100 #### [facility] [address] [place], [place], [address] COMPREHENSIVE METABOLIC Collected: 12/25/2017 Status: F Source: [facility] 12:50 PM [facility] REPOSITORY TYPE CODE TESTS RESULT OUT OF [...] GAP 8 Performed By: #### L500.4050 #### [facility] [address] [place], [address] ALLERGIES ALLERGIES DATE TYPE / CODE NAME / CODE REACTION SEVERITY SOURCE 09/24/2018 Drug No Known Unknown [facility] Allergy/4160 Allergies/F00 Hospital 34310(SNOMED 9880951(RXNOR Repository CT) M) ENCOUNTERS ENCOUNTERS ADMIT/DISCHARGE ACCOUNT ADMITTING ENCOUNTER LOCATION SOURCE NUMBER CLASS 10/29/2018 [id number] Ambulatory [place] 9 [facility] ing:MEDOUTP Repository 10/22/2018 [id number] Ambulatory [place] 1 [facility] ing:LAB Repository 09/24/2018 [id number] Ambulatory [place] 6 [facility] ing:MEDOUTP Repository 09/10/2018 [id number] Ambulatory [place] 9 [facility] Hospital ing:OPBD Repository 08/20/2018 [id number] Ambulatory [place] 4 [facility] ing:MEDOUTP Repository 07/23/2018 [id number] Ambulatory [place] 7 [facility] Hospital ing:PT Repository 07/17/2018 [id number] Ambulatory [place] 1 [facility] ing:HPRAD Repository 07/16/2018 [id number] Ambulatory [place] 2 [facility] ing:MEDOUTP Repository 06/11/2018 [id number] Ambulatory [place] 5 [facility] ing:MEDOUTP Repository 05/11/2018 [id number] Ambulatory [place] 0 [facility] ing:MEDOUTP Repository 04/09/2018 [id number] Ambulatory [place] 5 [facility] ing:MEDOUTP Repository 03/05/2018 [id number] Ambulatory [place] 7 [facility] ing:MEDOUTP Repository 01/29/2018 [id number] Ambulatory [place] 4 [facility] ing:MEDOUTP Repository 12/25/2017 [id number] Ambulatory [place] 7 [facility] ing:MEDOUTP Repository 11/20/2017 [id number] Ambulatory [place] 0 [facility] ing:MEDOUTP Repository PAYERS PAYERS ENCOUNTER GUARANTOR PAYER SUBSCRIBER SOURCE 10/29/2018 TRES L [id number] Primary TRES L WADEDOB: [place] [address] Insurance:MEDICARE [id number] Hospital [facility] [address]Ihc: (330) Number: Repository [phone] () [id number] Date:2018-09-24 10/29/2018 Secondary TRES L WADEDOB: [place] Insurance:METALINE FALLSIAL [id number] [facility] COPolicy Number: Repository [id number] Date:[id number] [address]AH: 10/29/2018 Tertiary NOT GIVENUNK [place] Insurance:SELF PAY [facility] Number: Effective Repository Date:2018-09-24 10/22/2018 TRES L [id number] Primary TRES L WADEDOB: [place] [address] Insurance:MEDICARE [id number] Hospital Cleveland East [address]Fqf: (330) Number: Repository [phone] () [id number] Date:2018-10-22 10/22/2018 Secondary TRES L WADEDOB: [place] Insurance:COLONIAL [id number] Health [facility] COPolicy Number: Repository [id number] Date:2634-91-88[address], [place] [address]OE: 10/22/2018 Tertiary NOT GIVENUNK [place] Insurance:SELF PAY [facility] Number: Effective Repository Date:2018-10-22 09/24/2018 TRES L [id number] Primary TRES L WADEDOB: [place] [address] Insurance:MEDICARE [id number] Hospital [facility] [address]Nbk: (330) Number: Repository [phone] () [id number] Date:2018-08-20 09/24/2018 Secondary TRES L WADEDOB: [place] Insurance:METALINE FALLSIAL [id number] Health [facility] COPolicy Number: Repository [id number] Date:9535-09-76JS [address], [place] [address]HN: 09/24/2018 Tertiary NOT GIVENUNK [place] Insurance:SELF PAY [facility] Number: Effective Repository Date:2018-08-20 09/10/2018 TRES L [id number] Primary TRES L WADEDOB: [place] [address] Insurance:MEDICARE [id number] Hospital [facility] [address]Aaa: (330) Number: Repository [phone] () [id number] Date:2018-07-17 09/10/2018 Secondary TRES L WADEDOB: [place] Insurance:METALINE FALLSIAL [id number] Health [facility] COPolicy Number: Repository [id number] Date:4025-43-44ZW [address], [place] [address]YW: 09/10/2018 Tertiary NOT GIVENUNK [place] Insurance:SELF PAY [facility] Hospital Number: Effective Repository Date:2018-07-17 08/20/2018 TRES L [id number] Primary TRES L WADEDOB: [place] [address] Insurance:MEDICARE [id number] [place] [id number]: (330) Number: Repository [phone] () [id number] Date:2018-07-16 08/20/2018 Secondary TRES L WADEDOB: [place] Insurance:COLONIAL [id number] Health [facility] COPolicy Number: Repository [id number] Date:1713-27-16XQ [facility] [address], [place] [address]AE: 08/20/2018 Tertiary NOT GIVENUNK [place] Insurance:SELF PAY [facility] Number: Effective Repository Date:2018-07-16 07/23/2018 TRES L [id number] Primary TRES L WADEDOB: [place] [address] Insurance:MEDICARE [id number] Hospital [facility] East [address]Len: (330) Number: Repository [phone] () [id number] Date:2007-02-10 07/23/2018 Secondary TRES L WADEDOB: [place] Insurance:METALINE FALLSIAL [id number] Health [facility] COPolicy Number: Repository [id number] Date:5996-02-35LZ [facility] [address], [place] [address]NA: 07/23/2018 Tertiary NOT GIVENUNK [place] Insurance:SELF PAY [facility] Number: Effective Repository Date:2018-07-17 07/17/2018 TRES L [id number] Primary TRES L WADEDOB: [place] [address] Insurance:MEDICARE [id number] Hospital [facility] [address]Zxi: (330) Number: Repository [phone] () [id number] Date:2018-07-17 07/17/2018 Secondary TRES L WADEDOB: [place] Insurance:COLONIAL [id number] Health [facility] COPolicy Number: Repository [id number] Date:0063-18-57TS [facility] [address], [place] [address]DG: 07/17/2018 Tertiary NOT GIVENUNK [place] Insurance:SELF PAY [facility] Number: Effective Repository Date:2018-07-17 07/16/2018 TRES L [id number] Primary TRES L WADEDOB: [place] [address] Insurance:MEDICARE [id number] Hospital [facility] [address]Vys: (330) Number: Repository [phone] () [id number] Date:2018-06-11 07/16/2018 Secondary TRES L WADEDOB: [place] Insurance:COLONIAL [id number] Health [facility] COPolicy Number: Repository [id number] Date:4555-94-47JT [facility] [address]ZS: 07/16/2018 Tertiary NOT GIVENUNK [place] Insurance:SELF PAY [facility] Number: Effective Repository Date:2018-06-11 06/11/2018 TRES L [id number] Primary TRES L WADEDOB: [place] [address] Insurance:MEDICARE [id number] Hospital [facility] [address]Sxy: (330) Number: Repository [phone] () [id number] Date:2018-05-11 06/11/2018 Secondary TRES L WADEDOB: [place] Insurance:METALINE FALLSIAL [id number] Health [facility] COPolicy Number: Repository [id number] Date:8371-79-74QD [address], [place] [address]ZK: 06/11/2018 Tertiary NOT GIVENUNK [place] Insurance:SELF PAY [facility] Number: Effective Repository Date:2018-05-11 05/11/2018 TRES L [id number] Primary TRES L WADEDOB: [place] [address] Insurance:MEDICARE [id number] Hospital [facility] East [address]Vvu: (330) Number: Repository [phone] () [id number] Date:2018-04-09 05/11/2018 Secondary TRES L WADEDOB: [place] Insurance:COLONIAL [id number] Health [facility] COPolicy Number: Repository [id number] Date:2391-54-60[address], [place] [address]AA: 05/11/2018 Tertiary NOT GIVENUNK [place] Insurance:SELF PAY [facility] Number: Effective Repository Date:2018-04-09 04/09/2018 TRES L [id number] Primary TRES L WADEDOB: [place] [address] Insurance:MEDICARE [id number] of [facility] A [facility] [address]Xfo: (330) Number: Repository [phone] () [id number] Date:2018-03-05 04/09/2018 Secondary TRES L WADEDOB: [place] Insurance:COLONIAL [id number] [facility] COPolicy Number: Repository [id number] Date:5719-48-92ER [facility] [address], [place] [address]NB: 04/09/2018 Tertiary NOT GIVENUNK [place] Insurance:SELF PAY [facility] Number: Effective Repository Date:2018-03-05 03/05/2018 TRES L [id number] Primary TRES L WADEDOB: [place] [address] Insurance:MEDICARE [id number] PART A [facility] [address]Elf: (330) Number: Repository [phone] () [id number] Date:2018-01-29 03/05/2018 Secondary TRES L WADEDOB: [place] Insurance:COLONIAL [id number] Health [facility] COPolicy Number: Repository [id number] Date:5866-34-44[address], [place] [address]VO: 03/05/2018 Tertiary NOT GIVENUNK [place] Insurance:SELF PAY [facility] Number: Effective Repository Date:2018-01-29 01/29/2018 Tres L [id number] Primary Tres L WadeDOB: [place] [address] Insurance:MEDICARE [id number] of [facility] Health Network A [facility] [address]Qqo: (330) Number: Repository [phone] () [id number] Date:2017-12-25 01/29/2018 Secondary Tres L WadeDOB: [place] Insurance:COLONIAL [id number] Health [facility] COPolicy Number: Repository [id number] Date:7400-11-79[address], [place] [address]IX: 01/29/2018 Tertiary NOT GIVENUNK [place] Insurance:SELF PAY [facility] Number: Effective Repository Date:2017-12-25 12/25/2017 Tres L [id number] Primary Tres L WadeDOB: [place] [address] Insurance:MEDICARE [id number] of [facility] Health Network A [facility] [address]Itg: (330) Number: Repository [phone] () [id number] Date:2017-11-20 12/25/2017 Secondary Tres L WadeDOB: [place] Insurance:METALINE FALLSIAL [id number] Health [facility] COPolicy Number: Repository [id number] Date:0726-53-58[address], [place] [address]KQ: 12/25/2017 Tertiary NOT GIVENUNK [place] Insurance:SELF PAY [facility] Number: Effective Repository Date:2017-11-20 11/20/2017 Tres L [id number] Primary Tres L WadeDOB: [place] [address] Insurance:MEDICARE [id number] of [facility] Health Network A [facility] [address]Rba: (330) Number: Repository [phone] () [id number] Date:2017-10-16 11/20/2017 Secondary Tres L WadeDOB: [place] Insurance:COLONIAL [id number] Health [facility] COPolicy Number: Repository [id number] Date:0632-33-15[address], [place] [address]GO: 11/20/2017 Tertiary NOT GIVENUNK [place] Insurance:SELF PAY [facility] Number: Effective Repository Date:2017-10-16
== END ==
PROVIDERS: Family Provider Internal Medicine; PCP Internal Medicine; Referring Provider Internal Medicine Rheumatology; Visit Provider Internal Medicine Rheumatology
DX: M06.9 Rheumatoid arthritis, unspecified (principal)
CPT/HCPCS: 96413; J7050; A4216; J0129

== ENCOUNTER → 2018-12-03 12:27 | Outpatient (CLI) | payer MEDICARE, OTHER, SELFPAY ==
[2018-10-29 12:51] VITALS: BMI 21.9
[2018-12-03 12:45] VITALS: BP 118/56; PULSE 60; RESP 16; TEMP 36.7; BMI 21.9
== END ==
PROVIDERS: Family Provider Internal Medicine; PCP Internal Medicine; Referring Provider Internal Medicine Rheumatology; Visit Provider Internal Medicine Rheumatology
DX: M06.9 Rheumatoid arthritis, unspecified (principal)
CPT/HCPCS: 96413; J7050; A4216; J0129

== ENCOUNTER → 2019-01-25 11:43 | Outpatient (CLI) | payer MEDICARE, OTHER, SELFPAY ==
[2018-12-03 12:45] VITALS: BMI 21.9
[2019-01-25 12:30] LABS: Absolute Lymphocyte Count 1.71 X10^3/ul (0.83-4.51); Absolute Neutrophil Count 5.9 X10^3/uL (2.0-7.7); Basophil# 0.02 X10^3/uL; Basophil% 0.2 % (0-1); Eosinophil# 0.13 X10^3/uL; Eosinophils% 1.5 % (0-5); Hemoglobin 13.5 g/dl (12.0-15.0); Lymphocyte # 1.71 X10^3/ul (4.0); Lymphocyte % 20.2 % (19-41); Mean Corp Hgb Conc 32.9 g/gl (32-36); Mean Corpuscular Hgb 30.8 pg (27.0-32.0); Mean Corpuscular Volume 93.4 fL (81-99); Mean Platelet Vol. 9.3 fl (6.2-12.0); Monocyte# 0.76 X10^3/uL; Neutrophil # 5.85 X10^3/uL (2.7-7.7); Platelet Count 320 K/mm3 (150-450); RBC Distribution Width CV 14.3 % (11.6-14.6); RBC Distribution Width SD 47.3 fl (35.1-43.9); Red Blood Count 4.39 M/mm3 (4.2-5.4); White Blood Count 8.5 K/mm3 (4.4-11.0)
[2019-01-25 12:40] LABS: POSITIVE COUNT NO; POSITIVE DIFFERENTIAL NO; POSITIVE MORPHOLOGY NO
[2019-01-25 12:52] LABS: ALB/GLOB Ratio 0.9 RATIO (0.9-2.4); AST(SGOT) 24 U/L (15-37); Alanine Aminotransfer ALT/SGPT 20 U/L (13-56); Albumin, Serum 3.5 g/dL (3.2-5.0); Alkaline Phosphatase 93 U/L (45-117); Anion Gap 5 (5-15); BUN 14 mg/dL (7-18); BUN/Creat Ratio 20.5 RATIO (10-20); Calcium,Total 9.2 mg/dL (8.5-10.1); Chloride 100 mmol/L (98-107); Creatinine, Serum 0.68 mg/dL (0.55-1.02); EST Glomerular Filtration Rate 89 mL/min (>60); Est Glom Filt Rate - Afr Amer 107 mL/min (>60); Globulin 3.9 g/dL (2.2-4.2); Glucose 81 mg/dL (74-106); Potassium 4.1 mmol/L (3.5-5.1); Protein, Total 7.4 g/dL (6.4-8.2); Sodium Level 136 mmol/L (136-145)
== END ==
PROVIDERS: Family Provider Internal Medicine; PCP Internal Medicine; Referring Provider Internal Medicine Rheumatology; Visit Provider Internal Medicine Rheumatology
DX: M05.70 Rheumatoid arthritis with rheumatoid factor of unspecified site without organ or systems involvement (principal); M17.0 Bilateral primary osteoarthritis of knee; K50.90 Crohn's disease, unspecified, without complications; Z79.899 Other long term (current) drug therapy
CPT/HCPCS: 36415; 80053; 85025

== ENCOUNTER → 2019-02-11 12:31 | Outpatient (CLI) | payer MEDICARE, OTHER, SELFPAY ==
[2018-12-03 12:45] VITALS: BMI 21.9
[2019-02-11 12:40] VITALS: BP 137/58; PULSE 56; RESP 18; TEMP 36.6; O2SAT 98; BMI 21.9
== END ==
PROVIDERS: Family Provider Internal Medicine; PCP Internal Medicine; Referring Provider Internal Medicine Rheumatology; Visit Provider Internal Medicine Rheumatology
DX: M06.9 Rheumatoid arthritis, unspecified (principal)
CPT/HCPCS: 96413; J7050; A4216; J0129

== ENCOUNTER → 2019-03-18 | Outpatient (CLI) | payer MEDICARE, OTHER, SELFPAY ==
[2019-02-11 12:40] VITALS: BMI 21.9
[2019-03-18 13:07] VITALS: BP 109/61; PULSE 58; RESP 16; TEMP 36.8; O2SAT 99; BMI 21.9
== END | disposition home or self-care (01) ==
LOC: MEDOUTP 12:21
PROVIDERS: Family Provider Internal Medicine; PCP Internal Medicine; Referring Provider Internal Medicine Rheumatology; Visit Provider Internal Medicine Rheumatology
DX: M06.9 Rheumatoid arthritis, unspecified (principal)
CPT/HCPCS: 96413; J7050; A4216; J0129

== ENCOUNTER → 2019-04-22 | Outpatient (CLI) | payer MEDICARE, OTHER, SELFPAY ==
[2019-03-18 13:07] VITALS: BMI 21.9
[2019-04-22 12:33] VITALS: BP 120/69; PULSE 56; RESP 16; TEMP 36.2; O2SAT 99; BMI 21.9
[2019-04-22 12:54] LABS: Absolute Lymphocyte Count 2.26 X10^3/ul (0.83-4.51); Absolute Neutrophil Count 6.6 X10^3/uL (2.0-7.7); Basophil# 0.03 X10^3/uL; Basophil% 0.3 % (0-1); Eosinophil# 0.15 X10^3/uL; Eosinophils% 1.5 % (0-5); Hematocrit 38.7 % (37-47); Lymphocyte # 2.26 X10^3/ul (4.0); Lymphocyte % 22.9 % (19-41); Mean Corp Hgb Conc 33.6 g/gl (32-36); Mean Corpuscular Hgb 31.1 pg (27.0-32.0); Mean Corpuscular Volume 92.6 fL (81-99); Mean Platelet Vol. 9.4 fl (6.2-12.0); Monocyte# 0.79 X10^3/uL; Neutrophil # 6.61 X10^3/uL (2.7-7.7); Platelet Count 304 K/mm3 (150-450); RBC Distribution Width CV 14.2 % (11.6-14.6); RBC Distribution Width SD 46.4 fl (35.1-43.9); Red Blood Count 4.18 M/mm3 (4.2-5.4); White Blood Count 9.9 K/mm3 (4.4-11.0)
[2019-04-22 13:00] LABS: POSITIVE COUNT NO; POSITIVE DIFFERENTIAL NO; POSITIVE MORPHOLOGY NO
[2019-04-22 13:14] LABS: ALB/GLOB Ratio 0.9 RATIO (0.9-2.4); AST(SGOT) 26 U/L (15-37); Alanine Aminotransfer ALT/SGPT 20 U/L (13-56); Albumin, Serum 3.3 g/dL (3.2-5.0); Alkaline Phosphatase 88 U/L (45-117); Anion Gap 5 (5-15); BUN 13 mg/dL (7-18); BUN/Creat Ratio 15.2 RATIO (10-20); Chloride 102 mmol/L (98-107); Creatinine, Serum 0.86 mg/dL (0.55-1.02); EST Glomerular Filtration Rate 68 mL/min (>60); Est Glom Filt Rate - Afr Amer 83 mL/min (>60); Estimated Creatinine Clearance 47.31 ml/min; Globulin 3.7 g/dL (2.2-4.2); Glucose 72 mg/dL (74-106); Potassium 4.8 mmol/L (3.5-5.1); Sodium Level 136 mmol/L (136-145)
== END | disposition home or self-care (01) ==
LOC: MEDOUTP 12:28
PROVIDERS: Family Provider Internal Medicine; PCP Internal Medicine; Referring Provider Internal Medicine Rheumatology; Visit Provider Internal Medicine Rheumatology
DX: M05.70 Rheumatoid arthritis with rheumatoid factor of unspecified site without organ or systems involvement (principal); Z79.899 Other long term (current) drug therapy; M17.0 Bilateral primary osteoarthritis of knee; K50.90 Crohn's disease, unspecified, without complications
CPT/HCPCS: 96365; 80053; 85025; J7050; A4216; J0129

== ENCOUNTER → 2019-05-27 | Outpatient (CLI) | payer MEDICARE, OTHER, SELFPAY ==
[2019-04-22 12:33] VITALS: BMI 21.9
[2019-05-27 12:43] VITALS: BP 126/56; PULSE 57; RESP 16; TEMP 36.8; O2SAT 98; BMI 21.9
== END | disposition home or self-care (01) ==
LOC: MEDOUTP 12:36
PROVIDERS: Family Provider Internal Medicine; PCP Internal Medicine; Referring Provider Internal Medicine Rheumatology; Visit Provider Internal Medicine Rheumatology
DX: M06.9 Rheumatoid arthritis, unspecified (principal)
CPT/HCPCS: 96413; J7050; A4216; J0129

== ENCOUNTER → 2019-07-01 12:17 | Outpatient (CLI) | payer MEDICARE, OTHER, SELFPAY ==
[2019-05-27 12:43] VITALS: BMI 21.9
[2019-07-01 12:33] VITALS: BP 122/57; PULSE 59; RESP 16; TEMP 36.7; O2SAT 99; BMI 21.9
== END ==
PROVIDERS: Family Provider Internal Medicine; PCP Internal Medicine; Referring Provider Internal Medicine Rheumatology; Visit Provider Internal Medicine Rheumatology
DX: M06.9 Rheumatoid arthritis, unspecified (principal)
CPT/HCPCS: 96413; J7050; A4216; J0129

== ENCOUNTER → 2019-08-12 12:18 | Outpatient (CLI) | payer MEDICARE, OTHER, SELFPAY ==
[2019-07-01 12:33] VITALS: BMI 21.9
[2019-08-12 12:40] VITALS: BP 118/66; PULSE 58; RESP 16; TEMP 36.8; O2SAT 96; BMI 21.9
[2019-08-12 12:55] LABS: Absolute Lymphocyte Count 2.19 X10^3/uL (0.83-4.51); Absolute Neutrophil Count 5.7 X10^3/uL (2.0-7.7); Basophil# 0.04 X10^3/uL; Basophil% 0.5 % (0-1); Eosinophil# 0.15 X10^3/uL; Eosinophils% 1.7 % (0-5); Hematocrit 36.2 % (37-47); Lymphocyte # 2.19 X10^3/ul (4.0); Lymphocyte % 25.2 % (19-41); Mean Corp Hgb Conc 33.1 g/dL (32-36); Mean Corpuscular Hgb 31.8 pg (27.0-32.0); Monocyte# 0.58 X10^3/uL; Monocyte% 6.7 % (0-10); NRBC Flagged by Analyzer 0 % (0-5); Neutrophil # 5.68 X10^3/uL (2.7-7.7); Neutrophil % 65.4 % (47-70); Platelet Count 283 K/mm3 (150-450); RBC Distribution Width CV 13.6 % (11.6-14.6); RBC Distribution Width SD 48.2 fl (35.1-43.9); Red Blood Count 3.77 M/mm3 (4.2-5.4); White Blood Count 8.7 K/mm3 (4.4-11.0)
[2019-08-12 13:12] LABS: ALB/GLOB Ratio 0.9 RATIO (0.9-2.4); AST(SGOT) 16 U/L (15-37); Alanine Aminotransfer ALT/SGPT 17 U/L (13-56); Alkaline Phosphatase 80 U/L (45-117); Anion Gap 5 (5-15); BUN 13 mg/dL (7-18); BUN/Creat Ratio 13.7 RATIO (10-20); Calcium,Total 8.7 mg/dL (8.5-10.1); Chloride 100 mmol/L (98-107); Creatinine, Serum 0.95 mg/dL (0.55-1.02); EST Glomerular Filtration Rate 61 mL/min (>60); Est Glom Filt Rate - Afr Amer 74 mL/min (>60); Estimated Creatinine Clearance 42.82 ml/min; Globulin 3.4 g/dL (2.2-4.2); Glucose 89 mg/dL (74-106); Potassium 3.8 mmol/L (3.5-5.1); Protein, Total 6.4 g/dL (6.4-8.2); Sodium Level 135 mmol/L (136-145)
== END ==
PROVIDERS: Family Provider Internal Medicine; PCP Internal Medicine; Referring Provider Internal Medicine Rheumatology; Visit Provider Internal Medicine Rheumatology
DX: M05.70 Rheumatoid arthritis with rheumatoid factor of unspecified site without organ or systems involvement (principal); Z79.899 Other long term (current) drug therapy; M17.0 Bilateral primary osteoarthritis of knee; K50.90 Crohn's disease, unspecified, without complications
CPT/HCPCS: 80053; 85025; 96413; J7050; A4216; J0129

== ENCOUNTER → 2019-09-13 14:14 | Outpatient (CLI) | payer MEDICARE, OTHER, SELFPAY ==
[2019-08-12 12:40] VITALS: BMI 21.9
--- NOTE | 2019-09-13 14:16 | BI_ITS ---
MAMMOGRAPHY - BILATERAL SCREENING REASON FOR EXAM: Female, 79 years old. Routine annual screening examination. PERTINENT HISTORY: Non-contributory. TECHNIQUE: Digital bilateral breast driss (3D mammographic acquisition) in the CC and MLO projections. 2-D mediolateral oblique (MLO) and craniocaudad (CC) views of both breasts were obtained. CAD: Full Field Digital Mammography with Computer Added Detection was performed. COMPARISON: Comparison is made with prior study dated September 10, 2018 and July 24, 2015. FINDINGS: Breast Composition: There are scattered areas of fibroglandular density. There are no dominant masses or suspicious calcifications. No other significant abnormalities are identified. There has been no significant change since the prior study. BI/SCREEN MAMM (CAD) W/DRISS BILAT IMPRESSION: Stable bilateral screening mammogram. Yearly follow-up mammogram recommended. (A) ASSESSMENT CATEGORY: BIRADS Category 1: Negative. A letter regarding these results will be sent to the patient by the facility within 30 days. Approximately 10% of breast cancers are not detected by mammography. A normal mammogram should not delay biopsy of a clinically suspicious abnormality. [id number] Electronically Signed: Bartolo Knight, at 15:50 EST , Service support ,
== END ==
PROVIDERS: Family Provider Internal Medicine; PCP Internal Medicine; Referring Provider Internal Medicine; Visit Provider Internal Medicine
DX: Z12.31 Encounter for screening mammogram for malignant neoplasm of breast (principal)
CPT/HCPCS: 77063; 77067

== ENCOUNTER → 2019-09-16 12:25 | Outpatient (CLI) | payer MEDICARE, OTHER, SELFPAY ==
[2019-08-12 12:40] VITALS: BMI 21.9
[2019-09-16 12:41] VITALS: BP 143/58; PULSE 60; RESP 16; TEMP 36.6; O2SAT 97; BMI 21.9
== END ==
PROVIDERS: Family Provider Internal Medicine; PCP Internal Medicine; Referring Provider Internal Medicine Rheumatology; Visit Provider Internal Medicine Rheumatology
DX: M06.9 Rheumatoid arthritis, unspecified (principal)
CPT/HCPCS: 96413; J7050; A4216; J0129

== ENCOUNTER → 2019-10-21 12:23 | Outpatient (CLI) | payer MEDICARE, OTHER, SELFPAY ==
[2019-09-16 12:41] VITALS: BMI 21.9
[2019-10-21 12:32] VITALS: BP 143/69; PULSE 55; RESP 16; TEMP 36.4; O2SAT 97; BMI 21.9
[2019-10-21 13:27] LABS: Absolute Lymphocyte Count 2.39 X10^3/uL (0.83-4.51); Basophil# 0.04 X10^3/uL; Basophil% 0.4 % (0-1); Eosinophil# 0.12 X10^3/uL; Eosinophils% 1.3 % (0-5); Hematocrit 37.4 % (37-47); Lymphocyte # 2.39 X10^3/ul (4.0); Mean Corp Hgb Conc 32.1 g/dL (32-36); Mean Corpuscular Hgb 30.7 pg (27.0-32.0); Mean Corpuscular Volume 95.7 fL (81-99); Mean Platelet Vol. 9.2 fl (6.2-12.0); Monocyte# 0.66 X10^3/uL; Monocyte% 7.2 % (0-10); NRBC Flagged by Analyzer 0 % (0-5); Neutrophil # 5.95 X10^3/uL (2.7-7.7); Neutrophil % 64.9 % (47-70); Platelet Count 313 K/mm3 (150-450); RBC Distribution Width CV 14.2 % (11.6-14.6); RBC Distribution Width SD 49.7 fl (35.1-43.9); Red Blood Count 3.91 M/mm3 (4.2-5.4); White Blood Count 9.2 K/mm3 (4.4-11.0)
[2019-10-21 13:41] LABS: ALB/GLOB Ratio 0.9 RATIO (0.9-2.4); AST(SGOT) 17 U/L (15-37); Alanine Aminotransfer ALT/SGPT 23 U/L (13-56); Albumin, Serum 3.3 g/dL (3.2-5.0); Alkaline Phosphatase 86 U/L (45-117); Anion Gap 1 (5-15); BUN 11 mg/dL (7-18); BUN/Creat Ratio 13.6 RATIO (10-20); Chloride 103 mmol/L (98-107); Creatinine, Serum 0.81 mg/dL (0.55-1.02); EST Glomerular Filtration Rate 73 mL/min (>60); Est Glom Filt Rate - Afr Amer 89 mL/min (>60); Estimated Creatinine Clearance 50.23 ml/min; Globulin 3.6 g/dL (2.2-4.2); Glucose 91 mg/dL (74-106); Potassium 3.9 mmol/L (3.5-5.1); Protein, Total 6.9 g/dL (6.4-8.2); Sodium Level 136 mmol/L (136-145)
== END ==
PROVIDERS: Family Provider Internal Medicine; PCP Internal Medicine; Referring Provider Internal Medicine Rheumatology; Visit Provider Internal Medicine Rheumatology
DX: M05.70 Rheumatoid arthritis with rheumatoid factor of unspecified site without organ or systems involvement (principal); Z79.899 Other long term (current) drug therapy; M17.0 Bilateral primary osteoarthritis of knee; K50.90 Crohn's disease, unspecified, without complications
CPT/HCPCS: 80053; 85025; 96413; J7050; A4216; J0129

== ENCOUNTER → 2019-11-25 12:38 | Outpatient (CLI) | payer MEDICARE, OTHER, SELFPAY ==
[2019-09-16 12:41] VITALS: BMI 21.9
[2019-10-21 12:32] VITALS: BMI 21.9
[2019-11-25 12:51] VITALS: BP 160/69; PULSE 60; RESP 16; TEMP 36.8; O2SAT 94; BMI 21.9
== END ==
PROVIDERS: Family Provider Internal Medicine; PCP Internal Medicine; Referring Provider Internal Medicine Rheumatology; Visit Provider Internal Medicine Rheumatology
DX: M06.9 Rheumatoid arthritis, unspecified (principal)
CPT/HCPCS: 96413; A4216; J0129

== ENCOUNTER → 2019-12-30 12:12 | Outpatient (CLI) | payer MEDICARE, OTHER, SELFPAY ==
[2019-10-21 12:32] VITALS: BMI 21.9
[2019-11-25 12:51] VITALS: BMI 21.9
[2019-12-30 12:22] VITALS: BP 150/74; PULSE 56; RESP 16; TEMP 36.6; O2SAT 97; BMI 22.3
[2019-12-30] MEDS: 0.9% NaCl Peripheral Flush Adult/Peds IV (12:29)
[2019-12-30] MEDS: 0.9% NaCl IVPB Med Flush (250 mL) 15 ML IV (12:31)
[2019-12-30 13:40] VITALS: BP 138/54; PULSE 54
== END ==
PROVIDERS: PCP Internal Medicine; Referring Provider Internal Medicine Rheumatology; Visit Provider Internal Medicine Rheumatology
DX: M06.9 Rheumatoid arthritis, unspecified (principal)
CPT/HCPCS: 96413; J7050; A4216; J0129

== ENCOUNTER → 2020-02-03 12:23 | Outpatient (CLI) | payer MEDICARE, OTHER, SELFPAY ==
[2019-11-25 12:51] VITALS: BMI 21.9
[2019-12-30 12:22] VITALS: BMI 22.3
[2020-02-03] MEDS: 0.9% NaCl Peripheral Flush Adult/Peds IV (12:37)
[2020-02-03] MEDS: 0.9% NaCl IVPB Med Flush (250 mL) 15 ML IV (12:37)
[2020-02-03 12:40] VITALS: BP 142/57; PULSE 58; RESP 16; O2SAT 100; BMI 22.3
[2020-02-03 13:06] LABS: Basophil# 0.04 X10^3/uL; Basophil% 0.4 % (0-1); Eosinophil# 0.11 X10^3/uL; Eosinophils% 1.2 % (0-5); Hematocrit 37.9 % (37-47); Hemoglobin 12.8 g/dL (12.0-15.0); Lymphocyte % 25.5 % (19-41); Mean Corp Hgb Conc 33.8 g/dL (32-36); Mean Corpuscular Hgb 32.2 pg (27.0-32.0); Mean Corpuscular Volume 95.2 fL (81-99); Mean Platelet Vol. 9.1 fl (6.2-12.0); Monocyte% 5.5 % (0-10); NRBC Flagged by Analyzer 0 % (0-5); Neutrophil # 6.04 X10^3/uL (2.7-7.7); Neutrophil % 67.1 % (47-70); Platelet Count 283 K/mm3 (150-450); RBC Distribution Width CV 13.6 % (11.6-14.6); RBC Distribution Width SD 47.8 fl (35.1-43.9); Red Blood Count 3.98 M/mm3 (4.2-5.4)
[2020-02-03 13:20] LABS: ALB/GLOB Ratio 0.9 RATIO (0.9-2.4); AST(SGOT) 18 U/L (15-37); Alanine Aminotransfer ALT/SGPT 17 U/L (13-56); Albumin, Serum 3.2 g/dL (3.2-5.0); Alkaline Phosphatase 85 U/L (45-117); Anion Gap 6 (5-15); BUN 14 mg/dL (7-18); BUN/Creat Ratio 19.2 RATIO (10-20); Calcium,Total 8.8 mg/dL (8.5-10.1); Chloride 103 mmol/L (98-107); Creatinine, Serum 0.73 mg/dL (0.55-1.02); EST Glomerular Filtration Rate 82 mL/min (>60); Est Glom Filt Rate - Afr Amer 99 mL/min (>60); Estimated Creatinine Clearance 40.68 ml/min; Globulin 3.4 g/dL (2.2-4.2); Glucose 112 mg/dL (74-106); Potassium 3.6 mmol/L (3.5-5.1); Protein, Total 6.6 g/dL (6.4-8.2); Sodium Level 137 mmol/L (136-145)
== END ==
PROVIDERS: PCP Internal Medicine; Referring Provider Internal Medicine Rheumatology; Visit Provider Internal Medicine Rheumatology
DX: M05.70 Rheumatoid arthritis with rheumatoid factor of unspecified site without organ or systems involvement (principal); Z79.899 Other long term (current) drug therapy; M17.0 Bilateral primary osteoarthritis of knee; K50.90 Crohn's disease, unspecified, without complications
CPT/HCPCS: 80053; 85025; 96413; J7050; A4216; J0129

== ENCOUNTER → 2020-02-17 08:48 | Outpatient (CLI) | payer MEDICARE, OTHER, SELFPAY ==
[2020-02-03 12:40] VITALS: BMI 22.3
--- NOTE | 2020-02-17 09:03 | VDLE_ITS ---
Reason For Study: calf pain RIGHT GSV is normal. CFV is compressible, spontaneous, phasic, competent and demonstrates normal augmentation. FV is compressible, spontaneous, phasic, competent and demonstrates normal augmentation. POP V is compressible, spontaneous, phasic, competent and demonstrates normal augmentation. T/P Trunk is compressible. PTV is compressible. RT PerV is compressible. Procedure Exam performed in department. The exam was abbreviated due to the COVID 19 protocol. The exam was diagnostic. A preliminary report was called and/or faxed to Dr. Brooks. Interpretation Summary Deep veins of the right lower extremity are patent and compressible segmentally. There is no evidence of right lower extremity deep vein thrombosis. Valvular competence appears intact within the proximal deep venous system on the right . The right great saphenous vein appears patent and compressible segmentally. Ordering Physician: Danette Brooks Referring Physician: Sade Matthews M.D. Performed By: Rodríguez Christine RVT
== END ==
PROVIDERS: PCP Internal Medicine; Referring Provider Internal Medicine Rheumatology; Visit Provider Internal Medicine Rheumatology
DX: M79.661 Pain in right lower leg (principal); M05.70 Rheumatoid arthritis with rheumatoid factor of unspecified site without organ or systems involvement; Z79.899 Other long term (current) drug therapy; M17.0 Bilateral primary osteoarthritis of knee; K50.90 Crohn's disease, unspecified, without complications
CPT/HCPCS: 93971

== ENCOUNTER → 2020-03-09 12:20 | Outpatient (CLI) | payer MEDICARE, OTHER, SELFPAY ==
[2019-12-30 12:22] VITALS: BMI 22.3
[2020-02-03 12:40] VITALS: BMI 22.3
[2020-03-09 12:38] VITALS: BP 122/77; PULSE 61; RESP 16; TEMP 36.9; O2SAT 96; BMI 22.3
[2020-03-09] MEDS: 0.9% NaCl IVPB Med Flush (250 mL) 15 ML IV (12:45)
[2020-03-09] MEDS: 0.9% NaCl Peripheral Flush Adult/Peds IV (12:46)
[2020-03-09 13:50] VITALS: BP 136/67
== END ==
PROVIDERS: PCP Internal Medicine; Referring Provider Internal Medicine Rheumatology; Visit Provider Internal Medicine Rheumatology
DX: M06.9 Rheumatoid arthritis, unspecified (principal)
CPT/HCPCS: 96413; J7050; A4216; J0129

== ENCOUNTER → 2020-04-06 12:29 | Outpatient (CLI) | payer MEDICARE, OTHER, SELFPAY ==
[2020-02-03 12:40] VITALS: BMI 22.3
[2020-03-09 12:38] VITALS: BMI 22.3
[2020-04-06 12:45] VITALS: BP 140/69; PULSE 64; RESP 16; O2SAT 98; BMI 22.3
[2020-04-06] MEDS: 0.9% NaCl Peripheral Flush Adult/Peds IV (12:48)
[2020-04-06] MEDS: 0.9% NaCl IVPB Med Flush (250 mL) 15 ML IV (12:51)
[2020-04-06 13:57] VITALS: BP 132/66; PULSE 61
== END ==
PROVIDERS: PCP Internal Medicine; Referring Provider Internal Medicine Rheumatology; Visit Provider Internal Medicine Rheumatology
DX: M06.9 Rheumatoid arthritis, unspecified (principal)
CPT/HCPCS: 96413; J7050; A4216; J0129

== ENCOUNTER → 2020-05-04 12:32 | Outpatient (CLI) | payer MEDICARE, OTHER, SELFPAY ==
[2020-03-09 12:38] VITALS: BMI 22.3
[2020-04-06 12:45] VITALS: BMI 22.3
[2020-05-04 12:49] VITALS: BP 137/71; PULSE 57; RESP 16; TEMP 36.3; O2SAT 98; BMI 22.3
[2020-05-04] MEDS: 0.9% NaCl Peripheral Flush Adult/Peds IV (12:59)
[2020-05-04] MEDS: 0.9% NaCl IVPB Med Flush (250 mL) 15 ML IV (13:00)
[2020-05-04 13:06] LABS: Absolute Lymphocyte Count 2.09 X10^3/uL (0.83-4.51); Absolute Neutrophil Count 6.9 X10^3/uL (2.0-7.7); Basophil# 0.04 X10^3/uL; Basophil% 0.4 % (0-1); Eosinophil# 0.14 X10^3/uL; Eosinophils% 1.5 % (0-5); Hematocrit 37.7 % (37-47); Hemoglobin 12.4 g/dL (12.0-15.0); Lymphocyte # 2.09 X10^3/ul (4.0); Lymphocyte % 21.7 % (19-41); Mean Corp Hgb Conc 32.9 g/dL (32-36); Mean Corpuscular Hgb 31.6 pg (27.0-32.0); Mean Corpuscular Volume 96.2 fL (81-99); Mean Platelet Vol. 9.1 fl (6.2-12.0); Monocyte# 0.49 X10^3/uL; Monocyte% 5.1 % (0-10); NRBC Flagged by Analyzer 0 % (0-5); Neutrophil # 6.86 X10^3/uL (2.7-7.7); Platelet Count 307 K/mm3 (150-450); RBC Distribution Width SD 48.8 fl (35.1-43.9); Red Blood Count 3.92 M/mm3 (4.2-5.4); White Blood Count 9.7 K/mm3 (4.4-11.0)
[2020-05-04 13:24] LABS: AST(SGOT) 15 U/L (15-37); Alanine Aminotransfer ALT/SGPT 18 U/L (13-56); Albumin, Serum 3.2 g/dL (3.2-5.0); Alkaline Phosphatase 82 U/L (45-117); Anion Gap 2 (5-15); BUN 11 mg/dL (7-18); BUN/Creat Ratio 13.8 RATIO (10-20); Calcium,Total 8.6 mg/dL (8.5-10.1); Chloride 101 mmol/L (98-107); EST Glomerular Filtration Rate 74 mL/min (>60); Est Glom Filt Rate - Afr Amer 90 mL/min (>60); Estimated Creatinine Clearance 50.05 ml/min; Globulin 3.3 g/dL (2.2-4.2); Glucose 149 mg/dL (74-106); Potassium 3.9 mmol/L (3.5-5.1); Protein, Total 6.5 g/dL (6.4-8.2); Sodium Level 134 mmol/L (136-145)
[2020-05-04 14:04] VITALS: BP 133/63; PULSE 52
[2020-05-04 21:00] LABS: Xtra Tube EP Lab EXTRA TUBE
== END ==
PROVIDERS: PCP Internal Medicine; Referring Provider Internal Medicine Rheumatology; Visit Provider Internal Medicine Rheumatology
DX: M05.70 Rheumatoid arthritis with rheumatoid factor of unspecified site without organ or systems involvement (principal); M17.0 Bilateral primary osteoarthritis of knee; K50.90 Crohn's disease, unspecified, without complications; Z79.899 Other long term (current) drug therapy
CPT/HCPCS: 96365; 80053; 85025; 96413; J7050; A4216; J0129

== ENCOUNTER → 2020-06-01 12:31 | Outpatient (CLI) | payer MEDICARE, OTHER, SELFPAY ==
[2020-04-06 12:45] VITALS: BMI 22.3
[2020-05-04 12:49] VITALS: BMI 22.3
[2020-06-01 12:35] VITALS: BP 141/68; PULSE 54; RESP 16; TEMP 36.4; O2SAT 100; BMI 22.3
[2020-06-01] MEDS: 0.9% NaCl Peripheral Flush Adult/Peds IV (12:51)
[2020-06-01] MEDS: 0.9% NaCl IVPB Med Flush (250 mL) 15 ML IV (12:55)
[2020-06-01 13:48] VITALS: BP 145/62; PULSE 49
== END ==
PROVIDERS: PCP Internal Medicine; Referring Provider Internal Medicine Rheumatology; Visit Provider Internal Medicine Rheumatology
DX: M06.9 Rheumatoid arthritis, unspecified (principal)
CPT/HCPCS: 96413; J7050; A4216; J0129

== ENCOUNTER → 2020-06-29 12:29 | Outpatient (CLI) | payer MEDICARE, OTHER, SELFPAY ==
[2020-05-04 12:49] VITALS: BMI 22.3
[2020-06-01 12:35] VITALS: BMI 22.3
[2020-06-29 12:38] VITALS: BP 118/72; PULSE 65; RESP 16; TEMP 37; O2SAT 96; BMI 22.3
[2020-06-29] MEDS: 0.9% NaCl Peripheral Flush Adult/Peds IV (12:46)
[2020-06-29] MEDS: 0.9% NaCl IVPB Med Flush (250 mL) 15 ML IV (13:04)
== END ==
PROVIDERS: PCP Internal Medicine; Referring Provider Internal Medicine Rheumatology; Visit Provider Internal Medicine Rheumatology
DX: M06.9 Rheumatoid arthritis, unspecified (principal)
CPT/HCPCS: 96413; J7050; A4216; J0129

== ENCOUNTER → 2020-07-27 12:26 | Outpatient (CLI) | payer MEDICARE, OTHER, SELFPAY ==
[2020-06-01 12:35] VITALS: BMI 22.3
[2020-06-29 12:38] VITALS: BMI 22.3
[2020-07-27 13:00] VITALS: BP 120/56; PULSE 58; RESP 16; TEMP 37.2; O2SAT 96; BMI 22.3
[2020-07-27] MEDS: 0.9% NaCl Peripheral Flush Adult/Peds IV (13:04)
[2020-07-27] MEDS: 0.9% NaCl IVPB Med Flush (250 mL) 15 ML IV (13:04)
[2020-07-27 13:25] LABS: Absolute Lymphocyte Count 1.99 X10^3/uL (0.83-4.51); Absolute Neutrophil Count 5.3 X10^3/uL (2.0-7.7); Basophil# 0.03 X10^3/uL; Basophil% 0.4 % (0-1); Eosinophil# 0.12 X10^3/uL; Eosinophils% 1.5 % (0-5); Hemoglobin 12.1 g/dL (12.0-15.0); Lymphocyte # 1.99 X10^3/ul (4.0); Lymphocyte % 24.5 % (19-41); Mean Corp Hgb Conc 32.7 g/dL (32-36); Mean Corpuscular Hgb 31.4 pg (27.0-32.0); Mean Corpuscular Volume 96.1 fL (81-99); Mean Platelet Vol. 9.3 fl (6.2-12.0); Monocyte# 0.63 X10^3/uL; Monocyte% 7.8 % (0-10); NRBC Flagged by Analyzer 0 % (0-5); Neutrophil # 5.33 X10^3/uL (2.7-7.7); Neutrophil % 65.6 % (47-70); Platelet Count 305 K/mm3 (150-450); RBC Distribution Width CV 14.1 % (11.6-14.6); RBC Distribution Width SD 49.3 fl (35.1-43.9); Red Blood Count 3.85 M/mm3 (4.2-5.4); White Blood Count 8.1 K/mm3 (4.4-11.0)
[2020-07-27 13:47] LABS: ALB/GLOB Ratio 0.9 RATIO (0.9-2.4); AST(SGOT) 16 U/L (15-37); Alanine Aminotransfer ALT/SGPT 16 U/L (13-56); Albumin, Serum 3.1 g/dL (3.2-5.0); Alkaline Phosphatase 83 U/L (45-117); Anion Gap 2 (5-15); BUN 14 mg/dL (7-18); BUN/Creat Ratio 16.5 RATIO (10-20); Calcium,Total 8.7 mg/dL (8.5-10.1); Chloride 100 mmol/L (98-107); Creatinine, Serum 0.85 mg/dL (0.55-1.02); EST Glomerular Filtration Rate 69 mL/min (>60); Est Glom Filt Rate - Afr Amer 83 mL/min (>60); Globulin 3.4 g/dL (2.2-4.2); Glucose 77 mg/dL (74-106); Protein, Total 6.5 g/dL (6.4-8.2); Sodium Level 135 mmol/L (136-145)
[2020-07-27 13:59] VITALS: BP 139/54; PULSE 53; RESP 16; O2SAT 97
== END ==
PROVIDERS: PCP Internal Medicine; Referring Provider Internal Medicine Rheumatology; Visit Provider Internal Medicine Rheumatology
DX: M05.70 Rheumatoid arthritis with rheumatoid factor of unspecified site without organ or systems involvement (principal); Z79.899 Other long term (current) drug therapy; M17.0 Bilateral primary osteoarthritis of knee; K50.90 Crohn's disease, unspecified, without complications
CPT/HCPCS: 80053; 85025; 96413; J7050; A4216; J0129

== ENCOUNTER → 2020-08-24 12:29 | Outpatient (CLI) | payer MEDICARE, OTHER, SELFPAY ==
[2020-06-29 12:38] VITALS: BMI 22.3
[2020-07-27 13:00] VITALS: BMI 22.3
[2020-08-24 12:45] VITALS: BP 171/68; PULSE 58; RESP 14; TEMP 35.6; O2SAT 98; BMI 22.3
[2020-08-24] MEDS: 0.9% NaCl IVPB Med Flush (250 mL) 15 ML IV (13:04)
[2020-08-24] MEDS: 0.9% NaCl Peripheral Flush Adult/Peds IV (13:04)
[2020-08-24 13:05] VITALS: BP 138/70
== END ==
PROVIDERS: PCP Internal Medicine; Referring Provider Internal Medicine Rheumatology; Visit Provider Internal Medicine Rheumatology
DX: M06.9 Rheumatoid arthritis, unspecified (principal)
CPT/HCPCS: 96413; J7050; A4216; J0129

== ENCOUNTER → 2020-09-21 12:23 | Outpatient (CLI) | payer MEDICARE, OTHER, SELFPAY ==
[2020-07-27 13:00] VITALS: BMI 22.3
[2020-08-24 12:45] VITALS: BMI 22.3
[2020-09-21 12:36] VITALS: BP 158/67; PULSE 58; RESP 16; TEMP 36.4; O2SAT 98; BMI 22.3
[2020-09-21] MEDS: 0.9% NaCl IVPB Med Flush (250 mL) 15 ML IV (12:46)
[2020-09-21] MEDS: 0.9% NaCl Peripheral Flush Adult/Peds IV (12:46)
== END ==
PROVIDERS: PCP Internal Medicine; Referring Provider Internal Medicine Rheumatology; Visit Provider Internal Medicine Rheumatology
DX: M06.9 Rheumatoid arthritis, unspecified (principal)
CPT/HCPCS: 96413; J7050; A4216; J0129

== ENCOUNTER → 2020-10-05 12:19 | Outpatient (CLI) | payer MEDICARE, OTHER, SELFPAY ==
[2020-08-24 12:45] VITALS: BMI 22.3
[2020-09-21 12:36] VITALS: BMI 22.3
--- NOTE | 2020-10-05 12:20 | BI_ITS ---
MAMMOGRAPHY - BILATERAL SCREENING REASON FOR EXAM: Female, 80 years old. Routine annual screening examination. PERTINENT HISTORY: Non-contributory. TECHNIQUE: Digital bilateral breast driss (3D mammographic acquisition) in the CC and MLO projections. 2-D mediolateral oblique (MLO) and craniocaudad (CC) views of both breasts were obtained. CAD: Full Field Digital Mammography with Computer Added Detection was performed. COMPARISON: Comparison is made with prior study dated 09/13/2019 and 09/10/2018. FINDINGS: Breast Composition: There are scattered areas of fibroglandular density. There are no dominant masses or suspicious calcifications. No other significant abnormalities are identified. There has been no significant change since the prior study. BI/SCREEN MAMM (CAD) W/DRISS BILAT IMPRESSION: Stable bilateral screening mammogram. Yearly follow-up mammogram recommended. (A) ASSESSMENT CATEGORY: BIRADS Category 1: Negative. A letter regarding these results will be sent to the patient by the facility within 30 days. Approximately 10% of breast cancers are not detected by mammography. A normal mammogram should not delay biopsy of a clinically suspicious abnormality. [id number] Electronically Signed: Bartolo Knight, at 13:50 EST , Service support ,
--- NOTE | 2020-10-05 12:24 | BD_ITS ---
STUDY: DUAL ENERGY X-RAY ABSORPTIOMETRY / DXA REASON FOR EXAM: Female, 80 years old. LINE SUPPLY -- TAKES BONE SUPPLEMENT -- HX OF TAKING BONE BUILDING MEDS IN PAST FOR LONG TIME -- DOES MODERATE-HIGH AMOUNT OF EXERCISE -- SHIRIN OF 2.5 INCHES TECHNIQUE: Bone Mineral Density (BMD) measurements of lumbar spine and bilateral hips were obtained. COMPARISON: Comparison is made with prior examination dated 09/10/2018. FINDINGS: Lumbar Spine (L1-L4): g/cm2 (0.968) / T-score (-1.9) / Z-score (-0.1) Findings are suggestive of osteopenia with a moderate fracture risk. Left Femur Total: g/cm2 (0.669) / T-score (-2.7) / Z-score (-0.8) Left Femoral Neck: g/cm2 (0.804) / T-score (-1.7) / Z-score (0.4) Right Femur Total: g/cm2 (0.698) / T-score (-2.5) / Z-score (-0.5) Right Femoral Neck: g/cm2 (0.944) / T-score (-0.7) / Z-score (1.4) The T-Scores on the most recent prior examination were: Lumbar Spine (L1-L4): There has been worsening of bone density since the previous examination. Left Femur Total: which represents a worsening of 1.5%. Right Femur Total: which represents a worsening of 2.6%. BD/Dexa Bone Density Study IMPRESSION: The patient is considered osteoporotic as outlined below according to World Kirby Organization (WHO) criteria with a high fracture risk. There has been worsening of bone density since the previous examination. Reference Information: The T-score is the number of standard deviations above or below the standard which is normal for young adults at their peak bone mineral density. The World Health Organization (WHO) interprets the T-scores as follows: Above -1 Normal bone density Between -1 and -2.5 Osteopenia Equal to / or below -2.5 Osteoporosis As a practical clinical guideline, osteopenia may be graded as follows: Mild -1 through -1.5 Moderate -1.6 through -2.0 Severe -2.1 through -2.4 The Z-score is the number of standard deviations above or below age-matched controls. A Z-score of less than -1.5 would be considered abnormal. References: 1. NIH Osteoporosis and Related Bone Diseases www osteo.org 2. International Society for Clinical Densitometry www iscd.org 3. National Osteoporosis Foundation www nof.org Electronically Signed: Bartolo Knight, at 13:57 EST , Service support ,
== END ==
PROVIDERS: PCP Internal Medicine; Referring Provider Internal Medicine; Visit Provider Internal Medicine
DX: Z12.31 Encounter for screening mammogram for malignant neoplasm of breast (principal); Z78.0 Asymptomatic menopausal state
CPT/HCPCS: 77063; 77067; 77080

== ENCOUNTER → 2020-10-19 12:32 | Outpatient (CLI) | payer MEDICARE, OTHER, SELFPAY ==
[2020-08-24 12:45] VITALS: BMI 22.3
[2020-09-21 12:36] VITALS: BMI 22.3
[2020-10-19 13:00] VITALS: BP 163/68; PULSE 57; RESP 16; TEMP 36.5; O2SAT 98; BMI 23.8
[2020-10-19 13:19] LABS: Absolute Lymphocyte Count 2.24 X10^3/uL (0.83-4.51); Absolute Neutrophil Count 6.1 X10^3/uL (2.0-7.7); Basophil# 0.03 X10^3/uL; Basophil% 0.3 % (0-1); Eosinophils% 1.1 % (0-5); Hematocrit 41.9 % (37-47); Hemoglobin 13.9 g/dL (12.0-15.0); Lymphocyte # 2.24 X10^3/ul (4.0); Mean Corp Hgb Conc 33.2 g/dL (32-36); Mean Corpuscular Hgb 31.5 pg (27.0-32.0); Mean Platelet Vol. 9.2 fl (6.2-12.0); Monocyte% 5.6 % (0-10); NRBC Flagged by Analyzer 0 % (0-5); Neutrophil # 6.06 X10^3/uL (2.7-7.7); Neutrophil % 67.7 % (47-70); Platelet Count 352 K/mm3 (150-450); RBC Distribution Width CV 13.9 % (11.6-14.6); RBC Distribution Width SD 48.2 fl (35.1-43.9); Red Blood Count 4.41 M/mm3 (4.2-5.4)
[2020-10-19] MEDS: 0.9% NaCl VAD Flush IV (13:19)
[2020-10-19] MEDS: 0.9% NaCl IVPB Med Flush (250 mL) 15 ML IV (13:19)
[2020-10-19 13:47] LABS: Vitamin D,25 Hydroxy 45.5 ng/mL
[2020-10-19 13:52] LABS: ALB/GLOB Ratio 0.9 RATIO (0.9-2.4); AST(SGOT) 18 U/L (15-37); Alanine Aminotransfer ALT/SGPT 19 U/L (13-56); Albumin, Serum 3.7 g/dL (3.2-5.0); Alkaline Phosphatase 98 U/L (45-117); Anion Gap 5 (5-15); BUN 12 mg/dL (7-18); BUN/Creat Ratio 15.3 RATIO (10-20); Calcium,Total 9.4 mg/dL (8.5-10.1); Chloride 99 mmol/L (98-107); Cholesterol 167 mg/dL (200); Creatinine, Serum 0.79 mg/dL (0.55-1.02); EST Glomerular Filtration Rate 75 mL/min (>60); Est Glom Filt Rate - Afr Amer 91 mL/min (>60); Estimated Creatinine Clearance 36.67 ml/min; Glucose 96 mg/dL (74-106); High Density Lipoprotein 70 mg/dL; Potassium 3.7 mmol/L (3.5-5.1); Protein, Total 7.7 g/dL (6.4-8.2); Sodium Level 133 mmol/L (136-145); Thyroid Stim Hormone (TSH) 2.22 uIU/mL (0.358-3.74); Triglycerides 115 mg/dL; Very Low Density Lipoprotein 23 mg/dL (5-40)
[2020-10-19 14:34] LABS: Bacteria 0 SEEN /hpf (None Seen); Mucous, Urine 0 SEEN /hpf (<or=2+); Red Blood Cells-Urine 0 SEEN /hpf (0-5); Squamous Epithelial Cells - UA 0 SEEN /hpf (5-10); White Blood Cells 0 SEEN /hpf (0-5)
[2020-10-19 14:36] LABS: Color, Urine Straw (Yellow); Glucose, Dipstick Normal (Normal); Ketone-Dipstick Negative (Negative); Leukocyte Esterase-Dipstick 100 /ul (Negative); Nitrite-Dipstick Negative (Negative); Occult Blood-Urine Negative /ul (Negative); Protein-Dipstick Negative (Negative); Urine Bilirubin Dipstick Negative (Negative); Urine Clarity Sl. Cloudy (Clear); Urine Urobilinogen Normal (Normal); Urine pH 6.5 (5.0 - 8.0)
[2020-10-19 14:42] LABS: Transitional Epithelial - Ur 0-5 SEEN /hpf (0-5)
[2020-10-19 14:55] LABS: Microalbumin,Random Urine 5.9 mg/L (NO RANGE EST.); Microalbumin:Creatinine Ratio 19.2 mg/g CRE (<30 mg/g CRE)
[2020-10-19 21:06] LABS: Xtra Tube EP Lab EXTRA TUBE
== END ==
PROVIDERS: PCP Internal Medicine; Referring Provider Internal Medicine Rheumatology; Visit Provider Internal Medicine Rheumatology
DX: M05.70 Rheumatoid arthritis with rheumatoid factor of unspecified site without organ or systems involvement (principal); I10 Essential (primary) hypertension; E55.9 Vitamin D deficiency, unspecified; M81.0 Age-related osteoporosis without current pathological fracture; Z79.899 Other long term (current) drug therapy; M17.0 Bilateral primary osteoarthritis of knee; K50.90 Crohn's disease, unspecified, without complications
CPT/HCPCS: 80053; 80061; 81001; 82043; 82306; 82570; 84443; 85025; 96413; J7050; A4216; J0129

== ENCOUNTER → 2020-11-16 12:28 | Outpatient (CLI) | payer MEDICARE, OTHER, SELFPAY ==
[2020-09-21 12:36] VITALS: BMI 22.3
[2020-10-19 13:00] VITALS: BMI 23.8
[2020-11-16] MEDS: 0.9% NaCl Peripheral Flush Adult/Peds IV (13:03)
[2020-11-16] MEDS: 0.9% NaCl IVPB Med Flush (250 mL) 15 ML IV (13:04)
[2020-11-16 13:06] VITALS: BP 129/57; PULSE 63; RESP 16; TEMP 36.6; O2SAT 97; BMI 23.8
[2020-11-16 13:55] VITALS: BP 143/60; PULSE 58; RESP 16; O2SAT 97
== END ==
PROVIDERS: PCP Internal Medicine; Referring Provider Internal Medicine Rheumatology; Visit Provider Internal Medicine Rheumatology
DX: M06.9 Rheumatoid arthritis, unspecified (principal)
CPT/HCPCS: 96365; 96413; J7050; A4216; J0129

== ENCOUNTER → 2020-12-14 12:31 | Outpatient (CLI) | payer MEDICARE, OTHER, SELFPAY ==
[2020-10-19 13:00] VITALS: BMI 23.8
[2020-11-16 13:06] VITALS: BMI 23.8
[2020-12-14 12:55] VITALS: BP 138/59; PULSE 61; RESP 16; TEMP 36.2; O2SAT 96; BMI 23.8
[2020-12-14] MEDS: 0.9% NaCl IVPB Med Flush (250 mL) 15 ML IV (12:58)
[2020-12-14] MEDS: 0.9% NaCl Peripheral Flush Adult/Peds IV (12:59)
[2020-12-14 13:46] VITALS: BP 140/70; PULSE 56; RESP 16; TEMP 36.1; O2SAT 97
== END ==
PROVIDERS: PCP Internal Medicine; Referring Provider Internal Medicine Rheumatology; Visit Provider Internal Medicine Rheumatology
DX: M06.9 Rheumatoid arthritis, unspecified (principal)
CPT/HCPCS: 96413; J7050; A4216; J0129

== ENCOUNTER → 2021-01-18 12:22 | Outpatient (CLI) | payer MEDICARE, OTHER, SELFPAY ==
[2020-11-16 13:06] VITALS: BMI 23.8
[2020-12-14 12:55] VITALS: BMI 23.8
[2021-01-18 12:28] VITALS: BP 130/67; PULSE 61; RESP 16; TEMP 36.6; O2SAT 97; BMI 23.8
[2021-01-18] MEDS: 0.9% NaCl Peripheral Flush Adult/Peds IV (12:57)
[2021-01-18] MEDS: 0.9% NaCl IVPB Med Flush (250 mL) 15 ML IV (12:57)
[2021-01-18 13:00] LABS: Absolute Lymphocyte Count 2.27 X10^3/uL (0.83-4.51); Absolute Neutrophil Count 5.9 X10^3/uL (2.0-7.7); Basophil# 0.04 X10^3/uL; Basophil% 0.4 % (0-1); Eosinophil# 0.16 X10^3/uL; Eosinophils% 1.8 % (0-5); Hemoglobin 12.1 g/dL (12.0-15.0); Lymphocyte # 2.27 X10^3/ul (4.0); Lymphocyte % 25.4 % (19-41); Mean Corp Hgb Conc 32.7 g/dL (32-36); Mean Corpuscular Volume 97.9 fL (81-99); Mean Platelet Vol. 9.6 fl (6.2-12.0); Monocyte# 0.57 X10^3/uL; Monocyte% 6.4 % (0-10); NRBC Flagged by Analyzer 0 % (0-5); Neutrophil # 5.87 X10^3/uL (2.7-7.7); Neutrophil % 65.8 % (47-70); Platelet Count 288 K/mm3 (150-450); RBC Distribution Width CV 14.4 % (11.6-14.6); RBC Distribution Width SD 50.5 fl (35.1-43.9); Red Blood Count 3.78 M/mm3 (4.2-5.4); White Blood Count 8.9 K/mm3 (4.4-11.0)
[2021-01-18 13:34] LABS: ALB/GLOB Ratio 1.1 RATIO (0.9-2.4); AST(SGOT) 19 U/L (15-37); Alanine Aminotransfer ALT/SGPT 21 U/L (13-56); Albumin, Serum 3.2 g/dL (3.2-5.0); Alkaline Phosphatase 77 U/L (45-117); Anion Gap 4 (5-15); BUN 13 mg/dL (7-18); BUN/Creat Ratio 14.6 RATIO (10-20); Chloride 100 mmol/L (98-107); Creatinine, Serum 0.89 mg/dL (0.55-1.02); EST Glomerular Filtration Rate 65 mL/min (>60); Est Glom Filt Rate - Afr Amer 79 mL/min (>60); Glucose 108 mg/dL (74-106); Potassium 4.6 mmol/L (3.5-5.1); Protein, Total 6.2 g/dL (6.4-8.2); Sodium Level 136 mmol/L (136-145)
[2021-01-18 13:49] VITALS: BP 133/66; PULSE 56; RESP 16; O2SAT 98
[2021-01-18 20:51] LABS: Xtra Tube EP Lab EXTRA TUBE
== END ==
PROVIDERS: PCP Internal Medicine; Referring Provider Internal Medicine Rheumatology; Visit Provider Internal Medicine Rheumatology
DX: M05.70 Rheumatoid arthritis with rheumatoid factor of unspecified site without organ or systems involvement (principal); Z79.899 Other long term (current) drug therapy; M17.0 Bilateral primary osteoarthritis of knee; K50.90 Crohn's disease, unspecified, without complications
CPT/HCPCS: 96365; 80053; 85025; 96413; J7050; A4216; J0129

== ENCOUNTER → 2021-02-15 12:18 | Outpatient (CLI) | payer MEDICARE, OTHER, SELFPAY ==
[2020-11-16 13:06] VITALS: BMI 23.8
[2021-01-18 12:28] VITALS: BMI 23.8
[2021-02-15 12:30] VITALS: BP 122/67; PULSE 78; RESP 16; TEMP 36.6; O2SAT 98; BMI 23.8
[2021-02-15] MEDS: 0.9% NaCl Peripheral Flush Adult/Peds IV (12:48)
[2021-02-15] MEDS: 0.9% NaCl IVPB Med Flush (250 mL) 15 ML IV (12:48)
== END ==
PROVIDERS: PCP Internal Medicine; Referring Provider Internal Medicine Rheumatology; Visit Provider Internal Medicine Rheumatology
DX: M06.9 Rheumatoid arthritis, unspecified (principal)
CPT/HCPCS: 96365; J7050; A4216; J0129

== ENCOUNTER → 2021-03-15 12:23 | Outpatient (CLI) | payer MEDICARE, OTHER, SELFPAY ==
[2021-01-18 12:28] VITALS: BMI 23.8
[2021-02-15 12:30] VITALS: BMI 23.8
[2021-03-15 12:30] VITALS: BP 144/65; PULSE 58; RESP 16; TEMP 37.1; O2SAT 100; BMI 22.3
[2021-03-15] MEDS: 0.9% NaCl IVPB Med Flush (250 mL) 15 ML IV (12:38)
[2021-03-15] MEDS: 0.9% NaCl Peripheral Flush Adult/Peds IV (12:45)
== END ==
PROVIDERS: PCP Internal Medicine; Referring Provider Internal Medicine Rheumatology; Visit Provider Internal Medicine Rheumatology
DX: M06.9 Rheumatoid arthritis, unspecified (principal)
CPT/HCPCS: 96365; J7050; A4216; J0129

== ENCOUNTER → 2021-04-02 10:54 | Outpatient (CLI) | payer MEDICARE, OTHER, SELFPAY ==
[2021-03-15 12:30] VITALS: BMI 22.3
[2021-04-02 11:18] LABS: Absolute Neutrophil Count 6.9 X10^3/uL (2.0-7.7); Basophil# 0.04 X10^3/uL; Basophil% 0.4 % (0-1); Hematocrit 38.3 % (37-47); Hemoglobin 12.7 g/dL (12.0-15.0); Lymphocyte % 18.4 % (19-41); Mean Corp Hgb Conc 33.2 g/dL (32-36); Mean Corpuscular Hgb 31.4 pg (27.0-32.0); Mean Corpuscular Volume 94.6 fL (81-99); Monocyte# 0.94 X10^3/uL; Monocyte% 9.6 % (0-10); NRBC Flagged by Analyzer 0 % (0-5); Neutrophil # 6.89 X10^3/uL (2.7-7.7); Neutrophil % 70.3 % (47-70); Platelet Count 308 K/mm3 (150-450); RBC Distribution Width CV 13.8 % (11.6-14.6); RBC Distribution Width SD 47.7 fl (35.1-43.9); Red Blood Count 4.05 M/mm3 (4.2-5.4); White Blood Count 9.8 K/mm3 (4.4-11.0)
[2021-04-02 11:38] LABS: AST(SGOT) 16 U/L (15-37); Alanine Aminotransfer ALT/SGPT 15 U/L (13-56); Albumin, Serum 3.3 g/dL (3.2-5.0); Alkaline Phosphatase 85 U/L (45-117); Anion Gap 8 (5-15); BUN 12 mg/dL (7-18); Calcium,Total 8.7 mg/dL (8.5-10.1); Chloride 101 mmol/L (98-107); EST Glomerular Filtration Rate 85 mL/min (>60); Est Glom Filt Rate - Afr Amer 103 mL/min (>60); Globulin 3.4 g/dL (2.2-4.2); Glucose 75 mg/dL (74-106); Protein, Total 6.7 g/dL (6.4-8.2); Sodium Level 137 mmol/L (136-145)
== END ==
PROVIDERS: PCP Internal Medicine; Referring Provider Internal Medicine; Visit Provider Internal Medicine
DX: I10 Essential (primary) hypertension (principal)
CPT/HCPCS: 36415; 80053; 85025

== ENCOUNTER → 2021-04-09 10:15 | Outpatient (CLI) | payer MEDICARE, OTHER, SELFPAY ==
[2021-03-15 12:30] VITALS: BMI 22.3
[2021-04-22 12:07] LABS: Dopamine, UR 49 ug/L (Undefined); Epinephrine, 24Ur 6 ug/24 hr (0-20); Epinephrine, Ur 2 ug/L (Undefined); Norepinephrine, 24Ur 45 ug/24 hr (0-135); Norepinephrine, Ur 15 ug/L (Undefined); VMA, 24UR 4.2 mg/24 hr (0.0-7.5)
[2021-04-22 16:27] LABS: Dopamine, 24Ur 147 ug/24 hr (0-510); VMA, UR 1.4 mg/L (Undefined)
== END ==
PROVIDERS: PCP Internal Medicine; Referring Provider Internal Medicine; Visit Provider Internal Medicine
DX: I10 Essential (primary) hypertension (principal)
CPT/HCPCS: 81050; 82384; 84585

== ENCOUNTER → 2021-04-12 12:20 | Outpatient (CLI) | payer MEDICARE, OTHER, SELFPAY ==
[2021-02-15 12:30] VITALS: BMI 23.8
[2021-03-15 12:30] VITALS: BMI 22.3
[2021-04-12 12:33] VITALS: BP 97/56; PULSE 60; RESP 16; TEMP 36; O2SAT 96; BMI 22.3
[2021-04-12] MEDS: 0.9% NaCl Peripheral Flush Adult/Peds IV ×2 (12:50→12:55)
[2021-04-12 13:05] LABS: Absolute Lymphocyte Count 2.32 X10^3/uL (0.83-4.51); Absolute Neutrophil Count 6.1 X10^3/uL (2.0-7.7); Basophil# 0.05 X10^3/uL; Basophil% 0.5 % (0-1); Eosinophil# 0.14 X10^3/uL; Eosinophils% 1.5 % (0-5); Hematocrit 36.9 % (37-47); Hemoglobin 12.3 g/dL (12.0-15.0); Lymphocyte # 2.32 X10^3/ul (0.83-4.51); Mean Corp Hgb Conc 33.3 g/dL (32-36); Mean Corpuscular Hgb 31.7 pg (27.0-32.0); Mean Corpuscular Volume 95.1 fL (81-99); Mean Platelet Vol. 9.2 fl (6.2-12.0); Monocyte# 0.66 X10^3/uL; Monocyte% 7.1 % (0-10); NRBC Flagged by Analyzer 0 % (0-5); Neutrophil % 65.7 % (47-70); Platelet Count 301 K/mm3 (150-450); RBC Distribution Width CV 13.8 % (11.6-14.6); RBC Distribution Width SD 48.4 fl (35.1-43.9); Red Blood Count 3.88 M/mm3 (4.2-5.4); White Blood Count 9.3 K/mm3 (4.4-11.0)
[2021-04-12] MEDS: 0.9% NaCl IVPB Med Flush (250 mL) 15 ML IV (13:13)
[2021-04-12 13:17] LABS: AST(SGOT) 17 U/L (15-37); Alanine Aminotransfer ALT/SGPT 15 U/L (13-56); Albumin, Serum 3.2 g/dL (3.2-5.0); Alkaline Phosphatase 81 U/L (45-117); Anion Gap 1 (5-15); BUN 13 mg/dL (7-18); BUN/Creat Ratio 14.1 RATIO (10-20); Calcium,Total 8.5 mg/dL (8.5-10.1); Chloride 102 mmol/L (98-107); Creatinine, Serum 0.92 mg/dL (0.55-1.02); EST Glomerular Filtration Rate 62 mL/min (>60); Est Glom Filt Rate - Afr Amer 75 mL/min (>60); Estimated Creatinine Clearance 42.82 ml/min; Globulin 3.3 g/dL (2.2-4.2); Glucose 88 mg/dL (74-106); Potassium 4.3 mmol/L (3.5-5.1); Protein, Total 6.5 g/dL (6.4-8.2); Sodium Level 133 mmol/L (136-145)
[2021-04-12 14:10] VITALS: BP 133/63; PULSE 52; RESP 14; TEMP 35.8; O2SAT 97
[2021-04-20 03:08] LABS: Aldosterone, Serum 9.5 ng/dL (0.0-30.0)
[2021-04-20 07:57] LABS: Renin, Plasma < 0.167 ng/mL/hr (0.167-5.380)
== END ==
PROVIDERS: PCP Internal Medicine; Referring Provider Internal Medicine Rheumatology; Visit Provider Internal Medicine Rheumatology
DX: M06.9 Rheumatoid arthritis, unspecified (principal)
CPT/HCPCS: 96365; 80053; 82088; 84244; 85025; J7050; A4216; J0129

== ENCOUNTER → 2021-05-10 07:44 | Outpatient (CLI) | payer MEDICARE, OTHER, SELFPAY ==
[2021-04-12 12:33] VITALS: BMI 22.3
--- NOTE | 2021-05-10 07:46 | RDU_ITS ---
Reason For Study: Hypertensive disorder Right Renal Artery Left Renal Artery Right renal artery ostium Left renal artery ostium 100.1/18.9 119.9/25.5 RSV/EDV. PSV/EDV. Right renal artery proximal Left renal artery proximal PSV/EDV 150.6/36.4 PSV/EDV. 92.4/21.2 . Right renal artery mid 141.8/27.7 Left renal artery mid 90.6/21.2 PSV/EDV. PSV/EDV . Right renal artery distal Left renal artery distal 68.3/17.9 100.3/23.6 PSV/EDV. PSV/EDV. Right RAR 1.81. Left RAR 1.20. Right Renal Parenchyma Left Renal Parenchyma Upper Pole Medula 23.9/7.4 PSV/EDV. Left upper pole medulla 29.4/7.2 Right upper pole medulla EDR 0.31 . PSV/EDV . Right upper pole medulla R.I. Left upper pole medulla EDR 0.24 . 0.69 . Left upper pole medulla R.I. 0.76 . Upper Ernesto Cortx 16.1/5.2 PSV/EDV. UP Cortex 12.9/3.6 PSV/EDV. Right upper pole cortex EDR 0.32 . Left upper pole cortex EDR 0.28 . Right upper pole cortex R.I. 0.68 . Left upper pole cortex R.I. 0.72 . Right lower Pole medulla 20.9/6.5 Left lower Pole medulla 20.7/6.1 PSV/EDV . PSV/EDV . Right lower pole medulla EDR 0.31 . Left lower pole medulla EDR 0.30 . Right lower pole medulla R.I. Left lower pole medulla R.I. 0.70 . 0.69 . Lower Pole Cortx 16.8/5.1 PSV/EDV. Lower Pole Cortex 13/3.9 PSV/EDV. Left lower pole cortex EDR 0.30 . Right lower pole cortex EDR 0.30 . Left lower pole cortex R.I. 0.70 . Right lower pole cortex R.I. 0.70 . Left Renal Hilar Right Renal Hilar LT Hilar avg 70/17 PSV/EDV . Right Hilar avg 50.1/13.6 PSV/EDV. Left hilar acceleration time 60 Right hilar acceleration time 40 m/sec. m/sec. Left Renal Dimensions Right Renal Dimensions Left kidney size 8.99 cm . Right kidney size 9.52 cm . Left cortical dimension 1.05 cm . Right cortical dimension 0.93 cm . Aorta Proximal abdominal aorta 1.61 x 1.59 cm . Proximal abdominal aorta peak systolic velocity is 83.3 cm/sec . Distal abdominal aorta 1.53 x 1.53 cm . Distal abdominal aorta peak systolic velocity is 83 cm/sec . VL/Renal Artery Duplex Ultrasound Interpretation Summary Maximum aortic diameter approximately 1.61 x 1.59 cm with normal velocity flow Less than 60% stenosis bilateral renal arteries Right renal length 9.52 cm Left renal length 8.99 cm Ordering Physician: Yari Guardado Referring Physician: Sade Matthews M.D. Performed By: Bekah Ramos RVT and Student
== END ==
PROVIDERS: PCP Internal Medicine; Referring Provider Internal Medicine Nephrology; Visit Provider Internal Medicine Nephrology
DX: I10 Essential (primary) hypertension (principal)
CPT/HCPCS: 93975

== ENCOUNTER → 2021-05-17 12:24 | Outpatient (CLI) | payer MEDICARE, OTHER, SELFPAY ==
[2021-03-15 12:30] VITALS: BMI 22.3
[2021-04-12 12:33] VITALS: BMI 22.3
[2021-05-17 12:35] VITALS: BP 133/60; PULSE 61; RESP 16; TEMP 36.6; O2SAT 95; BMI 22.3
[2021-05-17] MEDS: 0.9% NaCl IVPB Med Flush (250 mL) 15 ML IV (12:47)
[2021-05-17 13:46] VITALS: BP 113/55; PULSE 61; RESP 16; O2SAT 97
== END ==
PROVIDERS: PCP Internal Medicine; Referring Provider Internal Medicine Rheumatology; Visit Provider Internal Medicine Rheumatology
DX: M06.9 Rheumatoid arthritis, unspecified (principal)
CPT/HCPCS: 96365; J7050; A4216; J0129

== ENCOUNTER → 2021-05-31 10:31 | Outpatient (CLI) | payer MEDICARE, OTHER, SELFPAY ==
[2021-04-12 12:33] VITALS: BMI 22.3
[2021-05-31 12:41] LABS: Albumin, Serum 3.2 g/dL (3.2-5.0); BUN 10 mg/dL (7-18); BUN/Creat Ratio 14.3 RATIO (10-20); Calcium,Total 8.8 mg/dL (8.5-10.1); Chloride 103 mmol/L (98-107); EST Glomerular Filtration Rate 86 mL/min (>60); Est Glom Filt Rate - Afr Amer 104 mL/min (>60); Glucose 68 mg/dL (74-106); Phosphorus 3.2 mg/dL (2.5-4.9); Potassium 3.9 mmol/L (3.5-5.1); Sodium Level 135 mmol/L (136-145)
== END ==
PROVIDERS: PCP Internal Medicine; Visit Provider Internal Medicine Nephrology
DX: I10 Essential (primary) hypertension (principal)
CPT/HCPCS: 36415; 80069

== ENCOUNTER → 2021-06-14 12:26 | Outpatient (CLI) | payer MEDICARE, OTHER, SELFPAY ==
[2021-04-12 12:33] VITALS: BMI 22.3
[2021-06-14 12:41] VITALS: BP 129/63; PULSE 55; RESP 16; TEMP 35.7; O2SAT 96; BMI 22.3
[2021-06-14] MEDS: 0.9% NaCl Peripheral Flush Adult/Peds IV (12:53)
[2021-06-14] MEDS: 0.9% NaCl IVPB Med Flush (250 mL) 15 ML IV (12:53)
== END ==
PROVIDERS: PCP Internal Medicine; Referring Provider Internal Medicine Rheumatology; Visit Provider Internal Medicine Rheumatology
DX: M06.9 Rheumatoid arthritis, unspecified (principal)
CPT/HCPCS: 96365; J7050; A4216; J0129

== ENCOUNTER → 2021-07-19 11:59 | Outpatient (CLI) | payer MEDICARE, OTHER, SELFPAY ==
[2021-07-19 12:24] VITALS: BP 115/65; PULSE 54; RESP 14; TEMP 35.8; O2SAT 97; BMI 21.9
[2021-07-19] MEDS: 0.9% NaCl Peripheral Flush Adult/Peds IV (12:48)
[2021-07-19] MEDS: 0.9% NaCl IVPB Med Flush (250 mL) 15 ML IV (12:48)
[2021-07-19 13:03] LABS: Absolute Lymphocyte Count 1.86 X10^3/uL (0.83-4.51); Absolute Neutrophil Count 3.7 X10^3/uL (2.0-7.7); Basophil# 0.02 X10^3/uL; Basophil% 0.3 % (0-1); Eosinophils% 1.6 % (0-5); Hematocrit 34.5 % (37-47); Hemoglobin 11.5 g/dL (12.0-15.0); Lymphocyte # 1.86 X10^3/ul (0.83-4.51); Lymphocyte % 29.2 % (19-41); Mean Corp Hgb Conc 33.3 g/dL (32-36); Mean Corpuscular Hgb 31.9 pg (27.0-32.0); Mean Corpuscular Volume 95.6 fL (81-99); Mean Platelet Vol. 8.9 fl (6.2-12.0); Monocyte# 0.71 X10^3/uL; Monocyte% 11.1 % (0-10); NRBC Flagged by Analyzer 0 % (0-5); Neutrophil # 3.65 X10^3/uL (2.7-7.7); Neutrophil % 57.3 % (47-70); Platelet Count 329 K/mm3 (150-450); RBC Distribution Width CV 13.8 % (11.6-14.6); RBC Distribution Width SD 48.2 fl (35.1-43.9); Red Blood Count 3.61 M/mm3 (4.2-5.4); White Blood Count 6.4 K/mm3 (4.4-11.0)
[2021-07-19 13:18] LABS: ALB/GLOB Ratio 0.9 RATIO (0.9-2.4); AST(SGOT) 17 U/L (15-37); Alanine Aminotransfer ALT/SGPT 19 U/L (13-56); Albumin, Serum 3.2 g/dL (3.2-5.0); Alkaline Phosphatase 70 U/L (45-117); Anion Gap 5 (5-15); BUN 11 mg/dL (7-18); BUN/Creat Ratio 17.3 RATIO (10-20); Calcium,Total 8.8 mg/dL (8.5-10.1); Chloride 101 mmol/L (98-107); Creatinine, Serum 0.64 mg/dL (0.55-1.02); EST Glomerular Filtration Rate 96 mL/min (>60); Est Glom Filt Rate - Afr Amer 116 mL/min (>60); Estimated Creatinine Clearance 39.39 ml/min; Globulin 3.5 g/dL (2.2-4.2); Glucose 88 mg/dL (74-106); Potassium 4.1 mmol/L (3.5-5.1); Protein, Total 6.7 g/dL (6.4-8.2); Sodium Level 134 mmol/L (136-145)
[2021-07-19 13:31] VITALS: BP 129/66; PULSE 55; RESP 14; TEMP 35.8; O2SAT 99
== END ==
PROVIDERS: PCP Internal Medicine; Referring Provider Internal Medicine Rheumatology; Visit Provider Internal Medicine Rheumatology
DX: M05.70 Rheumatoid arthritis with rheumatoid factor of unspecified site without organ or systems involvement (principal); Z79.899 Other long term (current) drug therapy; M17.0 Bilateral primary osteoarthritis of knee; K50.90 Crohn's disease, unspecified, without complications
CPT/HCPCS: 96365; 80053; 85025; J7050; A4216; J0129

== ENCOUNTER → 2021-08-16 12:27 | Outpatient (CLI) | payer MEDICARE, OTHER, SELFPAY ==
[2021-08-16] MEDS: 0.9% NaCl Peripheral Flush Adult/Peds IV (12:45)
[2021-08-16] MEDS: 0.9% NaCl IVPB Med Flush (250 mL) 15 ML IV (12:45)
[2021-08-16 12:48] VITALS: BP 112/58; PULSE 58; RESP 16; O2SAT 97
[2021-08-16 13:06] LABS: Anion Gap 7 (5-15); BUN 12 mg/dL (7-18); BUN/Creat Ratio 16.5 RATIO (10-20); Chloride 100 mmol/L (98-107); Creatinine, Serum 0.73 mg/dL (0.55-1.02); EST Glomerular Filtration Rate 82 mL/min (>60); Est Glom Filt Rate - Afr Amer 99 mL/min (>60); Glucose 83 mg/dL (74-106); Potassium 4.3 mmol/L (3.5-5.1); Sodium Level 133 mmol/L (136-145)
[2021-08-16 13:49] VITALS: BP 113/49; PULSE 57; TEMP 36.4
== END ==
PROVIDERS: PCP Internal Medicine; Referring Provider Internal Medicine Rheumatology; Visit Provider Internal Medicine Rheumatology
DX: M06.9 Rheumatoid arthritis, unspecified (principal)
CPT/HCPCS: 96365; 80048; J7050; A4216; J0129

== ENCOUNTER → 2021-09-13 12:08 | Outpatient (CLI) | payer MEDICARE, OTHER, SELFPAY ==
[2021-09-13] MEDS: 0.9% NaCl Peripheral Flush Adult/Peds IV (12:41)
[2021-09-13] MEDS: 0.9% NaCl IVPB Med Flush (250 mL) 15 ML IV (12:41)
[2021-09-13 12:42] VITALS: BP 125/56; PULSE 59; RESP 16; TEMP 36.4; O2SAT 99
== END ==
PROVIDERS: PCP Internal Medicine; Referring Provider Internal Medicine Rheumatology; Visit Provider Internal Medicine Rheumatology
DX: M06.9 Rheumatoid arthritis, unspecified (principal)
CPT/HCPCS: 96365; J7050; A4216; J0129

== ENCOUNTER 2021-10-18 11:38 | Outpatient (CLI) | payer MEDICARE, OTHER, SELFPAY ==
[2021-10-18] MEDS: 0.9% NaCl IVPB Med Flush (250 mL) 15 ML IV (12:06)
[2021-10-18] MEDS: 0.9% NaCl Peripheral Flush Adult/Peds IV (12:06)
[2021-10-18 12:10] VITALS: BP 110/57; PULSE 60; RESP 16; TEMP 36.4; O2SAT 96
[2021-10-18 12:13] LABS: Absolute Lymphocyte Count 1.91 X10^3/uL (0.83-4.51); Absolute Neutrophil Count 6.3 X10^3/uL (2.0-7.7); Basophil# 0.04 X10^3/uL; Basophil% 0.4 % (0-1); Eosinophils% 1.1 % (0-5); Hemoglobin 12.7 g/dL (12.0-15.0); Lymphocyte # 1.91 X10^3/ul (0.83-4.51); Lymphocyte % 21.4 % (19-41); Mean Corp Hgb Conc 33.4 g/dL (32-36); Mean Corpuscular Hgb 31.8 pg (27.0-32.0); Monocyte# 0.56 X10^3/uL; Monocyte% 6.3 % (0-10); NRBC Flagged by Analyzer 0 % (0-5); Neutrophil # 6.27 X10^3/uL (2.7-7.7); Neutrophil % 70.5 % (47-70); Platelet Count 305 K/mm3 (150-450); RBC Distribution Width CV 14.2 % (11.6-14.6); RBC Distribution Width SD 49.2 fl (35.1-43.9); White Blood Count 8.9 K/mm3 (4.4-11.0)
[2021-10-18 12:32] LABS: ALB/GLOB Ratio 0.9 RATIO (0.9-2.4); AST(SGOT) 17 U/L (15-37); Alanine Aminotransfer ALT/SGPT 22 U/L (13-56); Albumin, Serum 3.4 g/dL (3.2-5.0); Alkaline Phosphatase 77 U/L (45-117); Anion Gap 6 (5-15); BUN 13 mg/dL (7-18); BUN/Creat Ratio 21.5 RATIO (10-20); Calcium,Total 8.8 mg/dL (8.5-10.1); Chloride 102 mmol/L (98-107); EST Glomerular Filtration Rate 102 mL/min (>60); Est Glom Filt Rate - Afr Amer 123 mL/min (>60); Globulin 3.6 g/dL (2.2-4.2); Glucose 99 mg/dL (74-106); Potassium 3.8 mmol/L (3.5-5.1); Sodium Level 135 mmol/L (136-145)
== END 2021-10-18 23:59 | disposition short-term general hospital (02) ==
LOC: MEDOUTP 11:41
PROVIDERS: PCP Internal Medicine; Referring Provider Internal Medicine Rheumatology; Visit Provider Internal Medicine Rheumatology
DX: M05.70 Rheumatoid arthritis with rheumatoid factor of unspecified site without organ or systems involvement (principal); K50.90 Crohn's disease, unspecified, without complications; Z79.899 Other long term (current) drug therapy; M79.0 Rheumatism, unspecified
CPT/HCPCS: 96365; 80053; 85025; J7050; A4216; J0129

== ENCOUNTER 2021-11-15 10:25 | Outpatient (CLI) | payer MEDICARE, OTHER, SELFPAY ==
[2021-11-15 10:39] VITALS: BP 113/63; PULSE 57; RESP 14; TEMP 36.8; O2SAT 96; BMI 22.1
[2021-11-15] MEDS: 0.9% NaCl IVPB Med Flush (250 mL) 15 ML IV (10:54)
[2021-11-15] MEDS: 0.9% NaCl Peripheral Flush Adult/Peds IV ×2 (10:54→10:58)
== END 2021-11-15 23:59 | disposition short-term general hospital (02) ==
LOC: MEDOUTP 10:25
PROVIDERS: PCP Internal Medicine; Referring Provider Internal Medicine Rheumatology; Visit Provider Internal Medicine Rheumatology
DX: M06.9 Rheumatoid arthritis, unspecified (principal)
CPT/HCPCS: 96365; J7050; A4216; J0129

== ENCOUNTER 2021-11-19 11:41 | Emergency (ER) | payer MEDICARE, OTHER, SELFPAY ==
[2021-11-19 11:42] VITALS: BP 142/68; PULSE 56; RESP 16; TEMP 36.3; O2SAT 96; BMI 22.1
--- NOTE | 2021-11-19 12:13 | ED.RN ---
PT. DOES NOT REMEMBER PASSING OUT. GOT DIZZY AND WOKE UP ON THE FLOOR AND WAS TOLD BY COLLEAGUES THAT SHE PASSED OUT.
--- NOTE | 2021-11-19 12:16 | EKG12_ITS ---
Test Reason : SYNCOPE Blood Pressure : / mmHG Vent. Rate : 058 BPM Atrial Rate : 058 BPM P-R Int : 282 ms QRS Dur : 082 ms QT Int : 406 ms P-R-T Axes : 057 028 042 degrees QTc Int : 398 ms Sinus bradycardia with 1st degree A-V block Otherwise normal ECG Confirmed by RAMONITA RILEY, LILLY ([id number]), international editorial producer BARBIE ORTEGA ([id number]) on 11/20/2021 11:33:35 AM Referred By: ROSEMARIE/JENNA Confirmed By:LILLY SHIPMAN MD
--- NOTE | 2021-11-19 12:17 | EX.ED.DYSGE1 ---
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 Apparently bystanders noted a blank stare on her face and lowered her to the ground. Patient denies chest pain or palpitations. She did eat this morning. She felt well up to the point of this episode and feels well currently. [facility] Medical History High cholesterol Hypertension Rheumatoid arthritis Home Medications methotrexate sodium 2.5 mg PO QWEEK 07/23/13 [History Last Taken Unknown] metoprolol succinate 100 mg PO DAILY 07/23/13 [History Last Taken Unknown] lactobacillus combination no.4 [Probiotic] 1 ea PO DAILY 04/01/14 [History Last Taken Unknown] ramipril [Altace] 10 mg PO BID 10/11/15 [History Last Taken Unknown] omega-3 fatty acids [Fish Oil] 500 mg PO DAILY 11/13/15 [History Last Taken Unknown] atorvastatin 10 mg PO QHS 10/03/16 [History Last Taken Unknown] hydralazine 25 mg PO DAILY 04/12/21 [History Last Taken Unknown] Allergy/AdvReac Type Severity Reaction Status Date / Time No Known Allergies Allergy Verified 11/19/21 11:42 Social History Smoking Status: Never smoker ROS ROS ED Constitutional Constitutional ED: Denies chills or fever(s) Eyes Eyes: Denies change in vision ENT ENT ED: Denies sore throat Cardiovascular Cardiovascular: Denies chest pain, palpitations or racing heartbeat Respiratory/Chest Respiratory/Chest: Denies cough or dyspnea Gastrointestinal Gastrointestinal: Denies abdominal pain, diarrhea, nausea or vomiting Genitourinary Genitourinary ED: Denies dysuria Musculoskeletal Musculoskeletal: Denies back pain Integumentary Denies rash Neurologic Neurologic: Denies headache(s) or weakness Allergic/Immunologic Allergic/Immunologic ED: Denies urticaria EXAM Physical Exam Const Vital Signs: 11/19/21 11:42 11/19/21 12:13 Temperature 97.4 F L Temperature Source Temporal Pulse Rate 56 L Respiratory Rate 16 Respiratory Pattern Irregular Blood Pressure 142/68 H Blood Pressure Mean 92 Pulse Ox 96 Oxygen Delivery Method Room Air Positive well nourished and well developed General Appearance ED: well developed HEENT Reports moist mucous membranes Eyes PERRL and EOMs intact bilaterally Neck supple Chest Wall inspection of chest normal and palpation of chest normal Resp normal respiratory effort and clear to auscultation bilaterally Cardio Rate: bradycardia GI normal to inspection, nondistended, normoactive bowel sounds and non-tender Palpation: soft Extremity normal to inspection Neuro oriented x3 and no sensory deficits noted Sensorium / Orientation: alert Motor Exam: strength 5/5 throughout Psych mental status grossly normal Skin no rashes or lesions noted MDM MDM MDM Narrative Medical decision making narrative: Patient placed on cardiac rehabilitation program director. Lab work and EKG obtained. Patient given 500 cc IV fluids. Lab Data Attestation: I reviewed the patient's lab results. Labs: Laboratory Results - last 24 hr 11/19/21 11/19/21 11/19/21 11:28 12:22 12:22 WBC 8.8 RBC 3.82 L Hgb 12.5 Hct 36.7 L MCV 96.1 MCH 32.7 H MCHC 34.1 RDW Std Deviation 49.2 H RDW Coeff of Jb 14.2 Plt Count 304 MPV 9.1 Immature Gran % (Auto) 0.300 Neut % (Auto) 69.9 Lymph % (Auto) 17.9 L Mccracken % (Auto) 10.2 H Eos % (Auto) 1.2 Baso % (Auto) 0.5 Absolute Neuts (auto) 6.2 Absolute Lymphs (auto) 1.58 Nucleated RBC % 0 Sodium 136 Potassium 3.9 Chloride 104 Carbon Dioxide 27.0 Anion Gap 5 BUN 13 Creatinine 0.68 Estim Creat Clear Calc 39.39 Est GFR (MDRD) Af Amer 107 Est GFR (MDRD) Non-Af 88 BUN/Creatinine Ratio 19.0 Glucose 93 Calcium 9.0 Troponin I High Sens 6 POC Glucose 85 EKG Initial EKG: Attestation: I personally reviewed and interpreted this EKG as follows: Interpretation: Sinus Bradycardia (Sinus bradycardia 58 bpm. First-degree AV block. No acute ischemia.) Treatment and Re-Evaluation Comments:: Patient been stable throughout her ED stay. I did discuss test results with her. At this time I have no etiology for her syncopal episode. I discussed the possibility of observation for cardiac monitoring. She feels well and does not want to stay in the hospital. Return instructions are discussed. Discharge Plan Triage Chief Complaint: Syncope ED Provider: Fara Armstrong Dx/Rx/DC Orders Clinical Impression: Syncope Instructions: ED Fainting, Uncertain Cause Prescriptions: No Action methotrexate sodium 2.5 MG tablet 2.5 mg PO QWEEK RF: 0 metoprolol succinate 100 MG tablet 100 mg PO DAILY RF: 0 Probiotic 1 EACH capsule 1 ea PO DAILY RF: 0 ramipril [Altace] 10 MG capsule 10 mg PO BID RF: 0 Fish Oil 500 MG capsule 500 mg PO DAILY RF: 0 atorvastatin 10 MG tablet 10 mg PO QHS RF: 0 hydralazine 25 mg Tablet 25 mg PO DAILY RF: 0 Primary Care Provider: Sade Matthews Referrals: Sade Matthews DO [Primary Care Provider] - 5-7 Days Disposition Disposition: Home, Self Care
[2021-11-19 12:35] LABS: Absolute Lymphocyte Count 1.58 X10^3/uL (0.83-4.51); Absolute Neutrophil Count 6.2 X10^3/uL (2.0-7.7); Basophil# 0.04 X10^3/uL; Basophil% 0.5 % (0-1); Eosinophil# 0.11 X10^3/uL; Eosinophils% 1.2 % (0-5); Hematocrit 36.7 % (37-47); Hemoglobin 12.5 g/dL (12.0-15.0); Lymphocyte # 1.58 X10^3/ul (0.83-4.51); Lymphocyte % 17.9 % (19-41); Mean Corp Hgb Conc 34.1 g/dL (32-36); Mean Corpuscular Hgb 32.7 pg (27.0-32.0); Mean Corpuscular Volume 96.1 fL (81-99); Mean Platelet Vol. 9.1 fl (6.2-12.0); Monocyte% 10.2 % (0-10); NRBC Flagged by Analyzer 0 % (0-5); Neutrophil # 6.18 X10^3/uL (2.7-7.7); Neutrophil % 69.9 % (47-70); Platelet Count 304 K/mm3 (150-450); RBC Distribution Width CV 14.2 % (11.6-14.6); RBC Distribution Width SD 49.2 fl (35.1-43.9); Red Blood Count 3.82 M/mm3 (4.2-5.4); White Blood Count 8.8 K/mm3 (4.4-11.0)
[2021-11-19 12:53] LABS: Anion Gap 5 (5-15); BUN 13 mg/dL (7-18); Chloride 104 mmol/L (98-107); Creatinine, Serum 0.68 mg/dL (0.55-1.02); EST Glomerular Filtration Rate 88 mL/min (>60); Est Glom Filt Rate - Afr Amer 107 mL/min (>60); Estimated Creatinine Clearance 39.39 ml/min; Glucose 93 mg/dL (74-106); Potassium 3.9 mmol/L (3.5-5.1); Sodium Level 136 mmol/L (136-145); Troponin-I HS 6 pg/mL (3.0-54.0)
[2021-11-19 13:06] LABS: Bedside Glucose 85 mg/dL (70-110)
[2021-11-19 13:35] VITALS: BP 169/69; PULSE 59; RESP 18; O2SAT 98
--- NOTE | 2021-11-19 13:37 | ED.RN ---
dc instructions given pt told to go home and rest. denies any wc for dc. reports that feeling fine now' dc papers given and pt up ambulatory wth no ataxia or diff voiced.
--- NOTE | 2021-11-20 12:05 | CASEMGMT ---
DESTINY ARAMBULA ED follow-up: DESTINY ARAMBULA placed call to patient's telephone number listed on demographics, patient answered. Patient states feeling fine today and denies pain or dizziness. Patient encouraged to drink plenty of fluids and reports she has been eating and drinking well. Patient encouraged to rise slowly when changing positions from sitting to standing to prevent orthostatic hypotension, dizziness or fall. Voices understanding. Patient encouraged to schedule PCP follow-up appointment. Patient states she is considering calling PCP office today. Denies questions or concerns. DESTINY Martinez CM
== END 2021-11-19 13:42 | disposition home or self-care (01) ==
PROVIDERS: Emergency Provider Emergency Medicine; PCP Internal Medicine; Visit Provider Emergency Medicine
DX: R55 Syncope and collapse (principal); M06.9 Rheumatoid arthritis, unspecified; E78.00 Pure hypercholesterolemia, unspecified; I10 Essential (primary) hypertension; Z79.899 Other long term (current) drug therapy; I44.0 Atrioventricular block, first degree
CPT/HCPCS: 80048; 82962; 84484; 85025; 93005; 96360; 99284; J7030; A4216

== ENCOUNTER 2021-12-13 13:24 | Outpatient (CLI) | payer MEDICARE, OTHER, SELFPAY ==
[2021-12-13] MEDS: 0.9% NaCl IVPB Med Flush (250 mL) 15 ML IV (13:47)
[2021-12-13] MEDS: 0.9% NaCl Peripheral Flush Adult/Peds IV (13:47)
[2021-12-13 13:56] VITALS: BP 113/61; PULSE 61; RESP 16; TEMP 36.7; O2SAT 96
== END 2021-12-13 23:59 | disposition home or self-care (01) ==
LOC: MEDOUTP 13:24
PROVIDERS: PCP Internal Medicine; Referring Provider Internal Medicine Rheumatology; Visit Provider Internal Medicine Rheumatology
DX: M06.9 Rheumatoid arthritis, unspecified (principal)
CPT/HCPCS: 96365; J7050; A4216; J0129

== ENCOUNTER 2022-01-11 12:44 | Outpatient (CLI) | payer MEDICARE, OTHER, SELFPAY ==
[2022-01-11 12:51] VITALS: BP 139/65; PULSE 66; RESP 16; TEMP 35.9; O2SAT 99
[2022-01-11] MEDS: 0.9% NaCl Peripheral Flush Adult/Peds IV (12:55)
[2022-01-11] MEDS: 0.9% NaCl IVPB Med Flush (250 mL) 15 ML IV (13:09)
[2022-01-11 13:11] LABS: Absolute Neutrophil Count 5.9 X10^3/uL (2.0-7.7); Basophil# 0.03 X10^3/uL; Basophil% 0.3 % (0-1); Eosinophil# 0.11 X10^3/uL; Eosinophils% 1.3 % (0-5); Hematocrit 39.7 % (37-47); Hemoglobin 13.1 g/dL (12.0-15.0); Lymphocyte % 23.9 % (19-41); Mean Corpuscular Hgb 31.9 pg (27.0-32.0); Mean Corpuscular Volume 96.6 fL (81-99); Mean Platelet Vol. 8.6 fl (6.2-12.0); Monocyte# 0.62 X10^3/uL; Monocyte% 7.1 % (0-10); NRBC Flagged by Analyzer 0 % (0-5); Neutrophil # 5.89 X10^3/uL (2.7-7.7); Neutrophil % 67.1 % (47-70); Platelet Count 323 K/mm3 (150-450); RBC Distribution Width CV 14.1 % (11.6-14.6); RBC Distribution Width SD 49.6 fl (35.1-43.9); Red Blood Count 4.11 M/mm3 (4.2-5.4); White Blood Count 8.8 K/mm3 (4.4-11.0)
[2022-01-11 13:31] LABS: AST(SGOT) 15 U/L (15-37); Alanine Aminotransfer ALT/SGPT 16 U/L (13-56); Albumin, Serum 3.5 g/dL (3.2-5.0); Alkaline Phosphatase 74 U/L (45-117); Anion Gap 4 (5-15); BUN 13 mg/dL (7-18); Chloride 104 mmol/L (98-107); Creatinine, Serum 0.81 mg/dL (0.55-1.02); EST Glomerular Filtration Rate 72 mL/min (>60); Est Glom Filt Rate - Afr Amer 87 mL/min (>60); Globulin 3.4 g/dL (2.2-4.2); Glucose 119 mg/dL (74-106); Potassium 3.9 mmol/L (3.5-5.1); Protein, Total 6.9 g/dL (6.4-8.2); Sodium Level 136 mmol/L (136-145)
[2022-01-11 14:08] VITALS: BP 127/52; PULSE 57; RESP 16; TEMP 36.8; O2SAT 98
== END 2022-01-11 23:59 | disposition home or self-care (01) ==
LOC: MEDOUTP 12:44
PROVIDERS: PCP Internal Medicine; Referring Provider Internal Medicine Rheumatology; Visit Provider Internal Medicine Rheumatology
DX: M06.9 Rheumatoid arthritis, unspecified (principal)
CPT/HCPCS: 80053; 85025; 96365; J7050; A4216; J0129

== ENCOUNTER → 2022-02-15 | Outpatient (CLI) | payer MEDICARE, OTHER, SELFPAY ==
[2022-02-15] MEDS: 0.9% NaCl Peripheral Flush Adult/Peds IV (12:57)
[2022-02-15 12:59] VITALS: BP 162/68; PULSE 54; RESP 16; TEMP 36.4; O2SAT 98
[2022-02-15] MEDS: 0.9% NaCl IVPB Med Flush (250 mL) 15 ML IV (13:09)
[2022-02-15 14:00] VITALS: BP 147/60; PULSE 53; RESP 16; TEMP 36.9; O2SAT 97
== END | disposition home or self-care (01) ==
LOC: MEDOUTP 12:52
PROVIDERS: PCP Internal Medicine; Referring Provider Internal Medicine Rheumatology; Visit Provider Internal Medicine Rheumatology
DX: M06.9 Rheumatoid arthritis, unspecified (principal)
CPT/HCPCS: 96365; J7050; A4216; J0129

== ENCOUNTER → 2022-03-15 | Outpatient (CLI) | payer MEDICARE, OTHER, SELFPAY ==
[2022-03-15 12:53] VITALS: BP 149/66; PULSE 58; RESP 16; TEMP 36.1; O2SAT 97
[2022-03-15] MEDS: 0.9% NaCl Peripheral Flush Adult/Peds IV (12:56)
[2022-03-15] MEDS: 0.9% NaCl IVPB Med Flush (250 mL) 15 ML IV (13:17)
[2022-03-15 13:54] VITALS: BP 112/54; PULSE 58; RESP 12; TEMP 36.1
== END | disposition home or self-care (01) ==
LOC: MEDOUTP 12:46
PROVIDERS: PCP Internal Medicine; Referring Provider Internal Medicine Rheumatology; Visit Provider Internal Medicine Rheumatology
DX: M06.9 Rheumatoid arthritis, unspecified (principal)
CPT/HCPCS: 96365; J7050; A4216; J0129

== ENCOUNTER → 2022-04-12 | Outpatient (CLI) | payer MEDICARE, OTHER, SELFPAY ==
[2022-04-12 12:30] VITALS: BP 131/74; PULSE 52; RESP 14; TEMP 36.6; O2SAT 96; BMI 21.9
[2022-04-12] MEDS: 0.9% NaCl Peripheral Flush Adult/Peds IV (12:38)
[2022-04-12 13:32] VITALS: BP 116/53; PULSE 51; RESP 16; TEMP 36.6; O2SAT 97
== END | disposition home or self-care (01) ==
LOC: MEDOUTP 12:22
PROVIDERS: PCP Internal Medicine; Referring Provider Internal Medicine Rheumatology; Visit Provider Internal Medicine Rheumatology
DX: M06.9 Rheumatoid arthritis, unspecified (principal)
CPT/HCPCS: 96365; A4216; J0129

== ENCOUNTER → 2022-05-17 | Outpatient (CLI) | payer MEDICARE, OTHER, SELFPAY ==
[2022-05-17] MEDS: 0.9% NaCl Peripheral Flush Adult/Peds IV (12:23)
[2022-05-17 12:29] VITALS: BP 113/45; PULSE 59; RESP 16; TEMP 36.8; O2SAT 98
[2022-05-17] MEDS: 0.9% NaCl IVPB Med Flush (250 mL) 15 ML IV (12:49)
[2022-05-17 13:11] LABS: Absolute Lymphocyte Count 1.79 X10^3/uL (0.83-4.51); Absolute Neutrophil Count 6.6 X10^3/uL (2.0-7.7); Basophil# 0.02 X10^3/uL; Basophil% 0.2 % (0-1); Eosinophil# 0.11 X10^3/uL; Eosinophils% 1.2 % (0-5); Hematocrit 36.9 % (37-47); Hemoglobin 12.3 g/dL (12.0-15.0); Lymphocyte # 1.79 X10^3/ul (0.83-4.51); Lymphocyte % 19.2 % (19-41); Mean Corp Hgb Conc 33.3 g/dL (32-36); Mean Corpuscular Hgb 31.9 pg (27.0-32.0); Mean Corpuscular Volume 95.6 fL (81-99); Mean Platelet Vol. 9.2 fl (6.2-12.0); Monocyte# 0.73 X10^3/uL; Monocyte% 7.8 % (0-10); NRBC Flagged by Analyzer 0 % (0-5); Neutrophil # 6.61 X10^3/uL (2.7-7.7); Neutrophil % 71.2 % (47-70); Platelet Count 317 K/mm3 (150-450); RBC Distribution Width CV 14.3 % (11.6-14.6); RBC Distribution Width SD 49.5 fl (35.1-43.9); Red Blood Count 3.86 M/mm3 (4.2-5.4); White Blood Count 9.3 K/mm3 (4.4-11.0)
[2022-05-17 13:22] LABS: AST(SGOT) 14 U/L (15-37); Alanine Aminotransfer ALT/SGPT 18 U/L (13-56); Albumin, Serum 3.3 g/dL (3.2-5.0); Alkaline Phosphatase 69 U/L (45-117); Anion Gap 5 (5-15); BUN 13 mg/dL (7-18); Calcium,Total 8.5 mg/dL (8.5-10.1); Chloride 102 mmol/L (98-107); Creatinine, Serum 0.81 mg/dL (0.55-1.02); EST Glomerular Filtration Rate 72 mL/min (>60); Est Glom Filt Rate - Afr Amer 87 mL/min (>60); Globulin 3.4 g/dL (2.2-4.2); Glucose 104 mg/dL (74-106); Potassium 4.1 mmol/L (3.5-5.1); Protein, Total 6.7 g/dL (6.4-8.2); Sodium Level 134 mmol/L (136-145)
[2022-05-17 13:37] VITALS: BP 120/51; PULSE 58; RESP 16; TEMP 36.5; O2SAT 97
== END | disposition home or self-care (01) ==
LOC: MEDOUTP 12:20
PROVIDERS: PCP Internal Medicine; Referring Provider Internal Medicine Rheumatology; Visit Provider Internal Medicine Rheumatology
DX: M05.70 Rheumatoid arthritis with rheumatoid factor of unspecified site without organ or systems involvement (principal); K50.90 Crohn's disease, unspecified, without complications; Z79.899 Other long term (current) drug therapy; M17.0 Bilateral primary osteoarthritis of knee
CPT/HCPCS: 96365; 80053; 85025; J7050; A4216; J0129

== ENCOUNTER → 2022-06-14 | Outpatient (CLI) | payer MEDICARE, OTHER, SELFPAY ==
[2022-06-14 12:37] VITALS: BP 125/55; PULSE 60; RESP 16; TEMP 36.2; O2SAT 98; BMI 21.9
[2022-06-14] MEDS: 0.9% NaCl Peripheral Flush Adult/Peds IV (12:40)
[2022-06-14] MEDS: 0.9% NaCl IVPB Med Flush (250 mL) 15 ML IV (12:50)
[2022-06-14 13:38] VITALS: BP 137/56; PULSE 56; RESP 16; O2SAT 98
== END | disposition home or self-care (01) ==
LOC: MEDOUTP 12:24
PROVIDERS: PCP Internal Medicine; Referring Provider Internal Medicine Rheumatology; Visit Provider Internal Medicine Rheumatology
DX: M06.9 Rheumatoid arthritis, unspecified (principal)
CPT/HCPCS: 96365; J7050; A4216; J0129

== ENCOUNTER → 2022-07-15 | Outpatient (CLI) | payer MEDICARE, OTHER, SELFPAY ==
[2022-07-15] MEDS: 0.9% NaCl Peripheral Flush Adult/Peds IV (12:24)
[2022-07-15 12:27] VITALS: BP 145/63; PULSE 70; RESP 16; TEMP 36.3; O2SAT 96; BMI 22.3
[2022-07-15] MEDS: 0.9% NaCl IVPB Med Flush (250 mL) 15 ML IV (12:31)
[2022-07-15 13:24] VITALS: BP 126/61; PULSE 61; RESP 16; TEMP 36.6; O2SAT 96
== END | disposition home or self-care (01) ==
LOC: MEDOUTP 12:18
PROVIDERS: PCP Internal Medicine; Referring Provider Internal Medicine Rheumatology; Visit Provider Internal Medicine Rheumatology
DX: M06.9 Rheumatoid arthritis, unspecified (principal)
CPT/HCPCS: 96365; J7050; A4216; J0129

== ENCOUNTER → 2022-08-13 | Outpatient (CLI) | payer MEDICARE, OTHER, SELFPAY ==
[2022-08-13 12:24] VITALS: BP 150/74; PULSE 59; RESP 14; TEMP 35.8; BMI 21.9
[2022-08-13] MEDS: 0.9% NaCl IVPB Med Flush (250 mL) 15 ML IV (12:38)
[2022-08-13] MEDS: 0.9% NaCl Peripheral Flush Adult/Peds IV (12:40)
[2022-08-13 12:45] LABS: Absolute Lymphocyte Count 2.16 X10^3/uL (0.83-4.51); Absolute Neutrophil Count 6.7 X10^3/uL (2.0-7.7); Basophil# 0.05 X10^3/uL; Basophil% 0.5 % (0-1); Eosinophil# 0.11 X10^3/uL; Eosinophils% 1.1 % (0-5); Hematocrit 38.1 % (37-47); Hemoglobin 12.9 g/dL (12.0-15.0); Lymphocyte # 2.16 X10^3/ul (0.83-4.51); Mean Corp Hgb Conc 33.9 g/dL (32-36); Mean Corpuscular Hgb 32.3 pg (27.0-32.0); Mean Corpuscular Volume 95.3 fL (81-99); Mean Platelet Vol. 8.8 fl (6.2-12.0); Monocyte# 0.76 X10^3/uL; Monocyte% 7.8 % (0-10); NRBC Flagged by Analyzer 0 % (0-5); Neutrophil % 68.4 % (47-70); Platelet Count 304 K/mm3 (150-450); RBC Distribution Width CV 14.6 % (11.6-14.6); RBC Distribution Width SD 50.9 fl (35.1-43.9); White Blood Count 9.8 K/mm3 (4.4-11.0)
[2022-08-13 13:27] VITALS: BP 145/68; PULSE 55; RESP 14; TEMP 36.1
[2022-08-13 13:33] LABS: AST(SGOT) 29 U/L (15-37); Alanine Aminotransfer ALT/SGPT 25 U/L (13-56); Albumin, Serum 3.3 g/dL (3.2-5.0); Alkaline Phosphatase 72 U/L (45-117); Anion Gap 6 (5-15); BUN 11 mg/dL (7-18); BUN/Creat Ratio 15.6 RATIO (10-20); Calcium,Total 8.8 mg/dL (8.5-10.1); Chloride 100 mmol/L (98-107); Creatinine, Serum 0.71 mg/dL (0.55-1.02); EST Glomerular Filtration Rate 85 mL/min (>60); Est Glom Filt Rate - Afr Amer 102 mL/min (>60); Estimated Creatinine Clearance 38.75 ml/min; Globulin 3.2 g/dL (2.2-4.2); Glucose 104 mg/dL (74-106); Potassium 3.7 mmol/L (3.5-5.1); Protein, Total 6.5 g/dL (6.4-8.2); Sodium Level 134 mmol/L (136-145)
== END | disposition home or self-care (01) ==
LOC: MEDOUTP 12:08
PROVIDERS: PCP Internal Medicine; Referring Provider Internal Medicine Rheumatology; Visit Provider Internal Medicine Rheumatology
DX: M06.9 Rheumatoid arthritis, unspecified (principal); M05.70 Rheumatoid arthritis with rheumatoid factor of unspecified site without organ or systems involvement; K50.90 Crohn's disease, unspecified, without complications; Z79.899 Other long term (current) drug therapy; M17.0 Bilateral primary osteoarthritis of knee
CPT/HCPCS: 96365; 80053; 85025; J7050; A4216; J0129

== ENCOUNTER 2022-09-12 12:21 | Outpatient (CLI) | payer MEDICARE, OTHER, SELFPAY ==
[2022-09-12] MEDS: 0.9% NaCl Peripheral Flush Adult/Peds IV (12:52)
[2022-09-12 12:53] VITALS: BP 90/42; PULSE 61; RESP 16; TEMP 36.3; O2SAT 96
[2022-09-12] MEDS: 0.9% NaCl IVPB Med Flush (250 mL) 15 ML IV (12:58)
[2022-09-12 13:55] VITALS: BP 118/50; PULSE 58; RESP 16; TEMP 36.5
== END 2022-09-12 23:59 | disposition home or self-care (01) ==
LOC: MEDOUTP 12:21
PROVIDERS: PCP Internal Medicine; Referring Provider Internal Medicine Rheumatology; Visit Provider Internal Medicine Rheumatology
DX: M06.9 Rheumatoid arthritis, unspecified (principal)
CPT/HCPCS: 96365; J7050; A4216; J0129

== ENCOUNTER → 2022-10-17 | Outpatient (CLI) | payer MEDICARE, OTHER, SELFPAY ==
[2022-10-17 12:30] VITALS: BP 136/64; PULSE 57; RESP 16; TEMP 36.6; O2SAT 98; BMI 21.9
[2022-10-17] MEDS: 0.9% NaCl Peripheral Flush Adult/Peds IV (12:42)
[2022-10-17] MEDS: 0.9% NaCl IVPB Med Flush (250 mL) 15 ML IV (12:42)
[2022-10-17 13:51] VITALS: BP 144/54; PULSE 55; TEMP 36.8; O2SAT 99
== END | disposition home or self-care (01) ==
PROVIDERS: PCP Internal Medicine; Referring Provider Internal Medicine Rheumatology; Visit Provider Internal Medicine Rheumatology
DX: M06.9 Rheumatoid arthritis, unspecified (principal)
CPT/HCPCS: 96372; J7050; A4216; J0129

== ENCOUNTER → 2022-11-14 | Outpatient (CLI) | payer MEDICARE, OTHER, SELFPAY ==
[2022-11-14 12:40] VITALS: BP 132/63; PULSE 58; RESP 16; TEMP 36.6; O2SAT 99
[2022-11-14 12:51] LABS: Absolute Lymphocyte Count 2.06 X10^3/uL (0.83-4.51); Basophil# 0.04 X10^3/uL; Basophil% 0.5 % (0-1); Eosinophil# 0.17 X10^3/uL; Eosinophils% 1.9 % (0-5); Hematocrit 38.3 % (37-47); Hemoglobin 12.5 g/dL (12.0-15.0); Lymphocyte # 2.06 X10^3/ul (0.83-4.51); Lymphocyte % 23.4 % (19-41); Mean Corp Hgb Conc 32.6 g/dL (32-36); Mean Corpuscular Hgb 31.6 pg (27.0-32.0); Mean Corpuscular Volume 96.7 fL (81-99); Mean Platelet Vol. 9.1 fl (6.2-12.0); Monocyte# 0.57 X10^3/uL; Monocyte% 6.5 % (0-10); NRBC Flagged by Analyzer 0 % (0-5); Neutrophil # 5.96 X10^3/uL (2.7-7.7); Neutrophil % 67.5 % (47-70); Platelet Count 317 K/mm3 (150-450); RBC Distribution Width CV 13.8 % (11.6-14.6); RBC Distribution Width SD 48.9 fl (35.1-43.9); Red Blood Count 3.96 M/mm3 (4.2-5.4); White Blood Count 8.8 K/mm3 (4.4-11.0)
[2022-11-14] MEDS: 0.9% NaCl IVPB Med Flush (250 mL) 15 ML IV (12:55)
[2022-11-14] MEDS: 0.9% NaCl Peripheral Flush Adult/Peds IV (12:55)
[2022-11-14 13:09] LABS: ALB/GLOB Ratio 0.9 RATIO (0.9-2.4); AST(SGOT) 20 U/L (15-37); Alanine Aminotransfer ALT/SGPT 19 U/L (13-56); Albumin, Serum 3.3 g/dL (3.2-5.0); Alkaline Phosphatase 68 U/L (45-117); Anion Gap 6 (5-15); BUN 12 mg/dL (7-18); Calcium,Total 8.8 mg/dL (8.5-10.1); Chloride 102 mmol/L (98-107); EST Glomerular Filtration Rate 73 mL/min (>60); Est Glom Filt Rate - Afr Amer 89 mL/min (>60); Globulin 3.6 g/dL (2.2-4.2); Glucose 102 mg/dL (74-106); Potassium 3.9 mmol/L (3.5-5.1); Protein, Total 6.9 g/dL (6.4-8.2); Sodium Level 137 mmol/L (136-145)
[2022-11-14 13:45] VITALS: BP 135/64; PULSE 62
== END | disposition home or self-care (01) ==
LOC: MEDOUTP 12:18
PROVIDERS: PCP Internal Medicine; Referring Provider Internal Medicine Rheumatology; Visit Provider Internal Medicine Rheumatology
DX: M05.70 Rheumatoid arthritis with rheumatoid factor of unspecified site without organ or systems involvement (principal); K50.90 Crohn's disease, unspecified, without complications; Z79.899 Other long term (current) drug therapy; M17.0 Bilateral primary osteoarthritis of knee
CPT/HCPCS: 96372; 80053; 85025; J7050; A4216; J0129

== ENCOUNTER → 2022-12-12 | Outpatient (CLI) | payer MEDICARE, OTHER, SELFPAY ==
[2022-12-12] MEDS: 0.9% NaCl Peripheral Flush Adult/Peds IV ×2 (12:21→12:32)
[2022-12-12 12:26] VITALS: BP 108/60; PULSE 58; RESP 14; TEMP 36.6; O2SAT 95; BMI 22.3
[2022-12-12] MEDS: 0.9% NaCl IVPB Med Flush (250 mL) 15 ML IV (12:32)
[2022-12-12 13:35] VITALS: BP 124/63; PULSE 55; RESP 16; TEMP 36.4
== END | disposition home or self-care (01) ==
LOC: MEDOUTP 12:12
PROVIDERS: PCP Internal Medicine; Referring Provider Internal Medicine Rheumatology; Visit Provider Internal Medicine Rheumatology
DX: M06.9 Rheumatoid arthritis, unspecified (principal)
CPT/HCPCS: 96365; J7050; A4216; J0129

== ENCOUNTER → 2023-01-16 | Outpatient (CLI) | payer MEDICARE, OTHER, SELFPAY ==
[2023-01-16] MEDS: 0.9% NaCl Peripheral Flush Adult/Peds IV (12:47)
[2023-01-16] MEDS: 0.9% NaCl IVPB Med Flush (250 mL) 15 ML IV (12:47)
[2023-01-16 12:48] VITALS: BP 137/55; PULSE 68; RESP 16; TEMP 36.3; O2SAT 98
[2023-01-16 13:36] VITALS: BP 140/62; PULSE 58; RESP 16; TEMP 36.3; O2SAT 96
== END | disposition home or self-care (01) ==
LOC: MEDOUTP 12:11
PROVIDERS: PCP Internal Medicine; Referring Provider Internal Medicine Rheumatology; Visit Provider Internal Medicine Rheumatology
DX: M06.9 Rheumatoid arthritis, unspecified (principal)
CPT/HCPCS: 96365; J7050; A4216; J0129

== ENCOUNTER 2023-02-13 12:21 | Outpatient (CLI) | payer MEDICARE, OTHER, SELFPAY ==
[2023-02-13] MEDS: 0.9% NaCl Peripheral Flush Adult/Peds IV (12:37)
[2023-02-13 12:46] VITALS: BP 105/52; PULSE 58; RESP 16; TEMP 36.6; O2SAT 95
[2023-02-13 12:55] LABS: Absolute Lymphocyte Count 1.89 X10^3/uL (0.83-4.51); Absolute Neutrophil Count 5.9 X10^3/uL (2.0-7.7); Basophil# 0.06 X10^3/uL; Basophil% 0.7 % (0-1); Eosinophil# 0.12 X10^3/uL; Eosinophils% 1.4 % (0-5); Hemoglobin 12.8 g/dL (12.0-15.0); Lymphocyte # 1.89 X10^3/ul (0.83-4.51); Lymphocyte % 21.8 % (19-41); Mean Corp Hgb Conc 32.8 g/dL (32-36); Mean Corpuscular Hgb 32.1 pg (27.0-32.0); Mean Corpuscular Volume 97.7 fL (81-99); Monocyte% 8.1 % (0-10); NRBC Flagged by Analyzer 0 % (0-5); Neutrophil # 5.87 X10^3/uL (2.7-7.7); Neutrophil % 67.7 % (47-70); Platelet Count 349 K/mm3 (150-450); RBC Distribution Width CV 14.7 % (11.6-14.6); RBC Distribution Width SD 52.7 fl (35.1-43.9); Red Blood Count 3.99 M/mm3 (4.2-5.4); White Blood Count 8.7 K/mm3 (4.4-11.0)
[2023-02-13] MEDS: 0.9% NaCl IVPB Med Flush (250 mL) 15 ML IV (13:02)
[2023-02-13 13:33] LABS: ALB/GLOB Ratio 0.9 RATIO (0.9-2.4); AST(SGOT) 17 U/L (15-37); Alanine Aminotransfer ALT/SGPT 18 U/L (13-56); Albumin, Serum 3.2 g/dL (3.2-5.0); Alkaline Phosphatase 68 U/L (45-117); Anion Gap 6 (5-15); BUN 13 mg/dL (7-18); Calcium,Total 8.9 mg/dL (8.5-10.1); Chloride 102 mmol/L (98-107); Creatinine, Serum 0.93 mg/dL (0.55-1.02); EST Glomerular Filtration Rate 62 mL/min (>60); Est Glom Filt Rate - Afr Amer 75 mL/min (>60); Globulin 3.4 g/dL (2.2-4.2); Glucose 83 mg/dL (74-106); Potassium 4.2 mmol/L (3.5-5.1); Protein, Total 6.6 g/dL (6.4-8.2); Sodium Level 137 mmol/L (136-145)
[2023-02-13 13:53] VITALS: PULSE 54; RESP 14; TEMP 36.6; O2SAT 97
== END 2023-02-13 12:22 | disposition home or self-care (01) ==
LOC: MEDOUTP 12:21
PROVIDERS: PCP Internal Medicine; Referring Provider Internal Medicine Rheumatology; Visit Provider Internal Medicine Rheumatology
DX: M05.70 Rheumatoid arthritis with rheumatoid factor of unspecified site without organ or systems involvement (principal); Z79.899 Other long term (current) drug therapy
CPT/HCPCS: 96361; 96365; 80053; 85025; J7050; A4216; J0129

== ENCOUNTER → 2023-02-24 | Outpatient (CLI) | payer MEDICARE, OTHER, SELFPAY ==
--- NOTE | 2023-02-24 14:53 | RAD_ITS ---
INDICATION: ARTHRITIS EXAMINATION/TECHNIQUE: X-RAY - RIGHT XR Hip Unilateral with Pelvis when performed; 2-3 Views COMPARISON: None. FINDINGS: SOFT TISSUES: Unremarkable. BONES/JOINTS: No fracture or dislocation. Moderate degenerative changes of the right hip with subchondral sclerosis, joint space narrowing and osteophyte formation. Mild degenerative changes of the left hip. No erosive changes. 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 Electronically Signed: Steven Kraus DO at 23:50 EDT ,
[2023-02-24 18:13] LABS: CRP 3.02 mg/L (0.0-3.0)
[2023-02-24 18:20] LABS: Erythrocyte Sedimentation Rate 8 mm/hr (0-30)
== END | disposition home or self-care (01) ==
LOC: MTLAB 14:51
PROVIDERS: PCP Family Medicine Geriatric Medicine; Referring Provider Internal Medicine Rheumatology; Visit Provider Internal Medicine Rheumatology
DX: M05.70 Rheumatoid arthritis with rheumatoid factor of unspecified site without organ or systems involvement (principal); K50.90 Crohn's disease, unspecified, without complications; Z79.899 Other long term (current) drug therapy; M17.0 Bilateral primary osteoarthritis of knee
CPT/HCPCS: 36415; 73502; 85652; 86140

== ENCOUNTER 2023-03-13 12:11 | Outpatient (CLI) | payer MEDICARE, OTHER, SELFPAY ==
[2023-03-13] MEDS: 0.9% NaCl IVPB Med Flush (250 mL) 15 ML IV (12:24)
[2023-03-13] MEDS: 0.9% NaCl Peripheral Flush Adult/Peds IV (12:33)
[2023-03-13 12:35] VITALS: BP 104/52; PULSE 57; RESP 16; O2SAT 97; BMI 22.3
== END 2023-03-13 12:12 | disposition home or self-care (01) ==
LOC: MEDOUTP 12:11
PROVIDERS: PCP Family Medicine Geriatric Medicine; Referring Provider Internal Medicine Rheumatology; Visit Provider Internal Medicine Rheumatology
DX: M06.9 Rheumatoid arthritis, unspecified (principal)
CPT/HCPCS: 96365; J7050; A4216; J0129

== ENCOUNTER 2023-04-17 12:28 | Outpatient (CLI) | payer MEDICARE, OTHER, SELFPAY ==
[2023-04-17 12:47] VITALS: BP 136/60; PULSE 61; RESP 16; TEMP 36.2; O2SAT 96
[2023-04-17] MEDS: 0.9% NaCl Peripheral Flush Adult/Peds IV (13:15)
[2023-04-17] MEDS: 0.9% NaCl IVPB Med Flush (250 mL) 15 ML IV (13:15)
[2023-04-17 14:06] VITALS: BP 120/56; PULSE 55
== END 2023-04-17 12:29 | disposition home or self-care (01) ==
LOC: MEDOUTP 12:28
PROVIDERS: PCP Family Medicine Geriatric Medicine; Referring Provider Internal Medicine Rheumatology; Visit Provider Internal Medicine Rheumatology
DX: M06.9 Rheumatoid arthritis, unspecified (principal)
CPT/HCPCS: 96365; J7050; A4216; J0129

== ENCOUNTER 2023-05-15 12:20 | Outpatient (CLI) | payer MEDICARE, OTHER, SELFPAY ==
[2023-05-15 12:59] LABS: Absolute Lymphocyte Count 2.07 X10^3/uL (0.83-4.51); Absolute Neutrophil Count 6.4 X10^3/uL (2.0-7.7); Basophil# 0.05 X10^3/uL; Basophil% 0.5 % (0-1); Eosinophil# 0.12 X10^3/uL; Eosinophils% 1.3 % (0-5); Hematocrit 35.8 % (37-47); Hemoglobin 12.3 g/dL (12.0-15.0); Lymphocyte # 2.07 X10^3/ul (0.83-4.51); Lymphocyte % 22.4 % (19-41); Mean Corp Hgb Conc 34.4 g/dL (32-36); Mean Corpuscular Hgb 33.1 pg (27.0-32.0); Mean Corpuscular Volume 96.2 fL (81-99); Mean Platelet Vol. 8.7 fl (6.2-12.0); Monocyte# 0.55 X10^3/uL; NRBC Flagged by Analyzer 0 % (0-5); Neutrophil # 6.42 X10^3/uL (2.7-7.7); Neutrophil % 69.5 % (47-70); Platelet Count 311 K/mm3 (150-450); RBC Distribution Width CV 13.9 % (11.6-14.6); RBC Distribution Width SD 48.5 fl (35.1-43.9); Red Blood Count 3.72 M/mm3 (4.2-5.4); White Blood Count 9.2 K/mm3 (4.4-11.0)
[2023-05-15 13:16] LABS: ALB/GLOB Ratio 0.9 RATIO (0.9-2.4); AST(SGOT) 20 U/L (15-37); Alanine Aminotransfer ALT/SGPT 21 U/L (13-56); Albumin, Serum 3.1 g/dL (3.2-5.0); Alkaline Phosphatase 67 U/L (45-117); Anion Gap 5 (5-15); BUN 13 mg/dL (7-18); BUN/Creat Ratio 16.9 RATIO (10-20); Calcium,Total 8.7 mg/dL (8.5-10.1); Chloride 101 mmol/L (98-107); Creatinine, Serum 0.77 mg/dL (0.55-1.02); EST Glomerular Filtration Rate 76 mL/min (>60); Est Glom Filt Rate - Afr Amer 92 mL/min (>60); Globulin 3.5 g/dL (2.2-4.2); Glucose 95 mg/dL (74-106); Potassium 4.1 mmol/L (3.5-5.1); Protein, Total 6.6 g/dL (6.4-8.2); Sodium Level 132 mmol/L (136-145)
[2023-05-15] MEDS: 0.9% NaCl IVPB Med Flush (250 mL) 15 ML IV (13:44)
[2023-05-15 14:01] VITALS: BP 140/65; PULSE 57; RESP 16
== END 2023-05-15 12:21 | disposition home or self-care (01) ==
LOC: MEDOUTP 12:20
PROVIDERS: PCP Family Medicine Geriatric Medicine; Referring Provider Internal Medicine Rheumatology; Visit Provider Internal Medicine Rheumatology
DX: M05.70 Rheumatoid arthritis with rheumatoid factor of unspecified site without organ or systems involvement (principal); Z79.899 Other long term (current) drug therapy
CPT/HCPCS: 96365; 80053; 85025; J7050; A4216; J0129

== ENCOUNTER 2023-06-19 12:32 | Outpatient (CLI) | payer MEDICARE, OTHER, SELFPAY ==
[2023-06-19 12:41] VITALS: BP 122/52; PULSE 64; RESP 16; TEMP 36.2; O2SAT 95
[2023-06-19] MEDS: 0.9% NaCl Peripheral Flush Adult/Peds IV (12:45)
[2023-06-19] MEDS: 0.9% NaCl IVPB Med Flush (250 mL) 15 ML IV (12:48)
[2023-06-19 13:44] VITALS: BP 111/50; PULSE 60; RESP 16; TEMP 36; O2SAT 98
== END 2023-06-19 12:33 | disposition home or self-care (01) ==
LOC: MEDOUTP 12:33
PROVIDERS: PCP Family Medicine Geriatric Medicine; Referring Provider Internal Medicine Rheumatology; Visit Provider Internal Medicine Rheumatology
DX: M06.9 Rheumatoid arthritis, unspecified (principal)
CPT/HCPCS: 96365; J7050; A4216; J0129

== ENCOUNTER 2023-07-17 12:18 | Outpatient (CLI) | payer MEDICARE, OTHER, SELFPAY ==
[2023-07-17] MEDS: 0.9% NaCl Peripheral Flush Adult/Peds IV (12:36)
[2023-07-17 12:40] VITALS: BP 98/52; PULSE 61; RESP 16; TEMP 36.7
[2023-07-17] MEDS: ABATACEPT IV (12:50)
[2023-07-17] MEDS: 0.9% NaCl IVPB Med Flush (250 mL) 15 ML IV (12:50)
[2023-07-17] MEDS: NORMAL SALINE 0.9% IV (12:50)
[2023-07-17 13:39] VITALS: BP 108/58; PULSE 70; RESP 16; TEMP 36.7; O2SAT 98
== END 2023-07-17 12:19 | disposition home or self-care (01) ==
LOC: MEDOUTP 12:18
PROVIDERS: PCP Family Medicine Geriatric Medicine; Referring Provider Internal Medicine Rheumatology; Visit Provider Internal Medicine Rheumatology
DX: M06.9 Rheumatoid arthritis, unspecified (principal)
CPT/HCPCS: 96365; J7050; A4216; J0129

== ENCOUNTER 2023-08-14 12:31 | Outpatient (CLI) | payer MEDICARE, OTHER, SELFPAY ==
[2023-08-14 12:46] VITALS: BP 155/68; PULSE 63; RESP 16; TEMP 36.3; O2SAT 97; BMI 22.3
[2023-08-14] MEDS: 0.9% NaCl Peripheral Flush Adult/Peds IV (12:52)
[2023-08-14] MEDS: 0.9% NaCl IVPB Med Flush (250 mL) 15 ML IV (12:53)
[2023-08-14 13:07] LABS: Absolute Lymphocyte Count 2.11 X10^3/uL (0.83-4.51); Absolute Neutrophil Count 7.9 X10^3/uL (2.0-7.7); Basophil# 0.08 X10^3/uL; Basophil% 0.7 % (0-1); Eosinophil# 0.11 X10^3/uL; Hematocrit 38.8 % (37-47); Hemoglobin 12.4 g/dL (12.0-15.0); Lymphocyte # 2.11 X10^3/ul (0.83-4.51); Lymphocyte % 19.1 % (19-41); Mean Corpuscular Hgb 31.5 pg (27.0-32.0); Mean Corpuscular Volume 98.5 fL (81-99); Mean Platelet Vol. 8.9 fl (6.2-12.0); Monocyte# 0.78 X10^3/uL; Monocyte% 7.1 % (0-10); NRBC Flagged by Analyzer 0 % (0-5); Neutrophil # 7.92 X10^3/uL (2.7-7.7); Neutrophil % 71.7 % (47-70); Platelet Count 387 K/mm3 (150-450); RBC Distribution Width SD 50.4 fl (35.1-43.9); Red Blood Count 3.94 M/mm3 (4.2-5.4)
[2023-08-14] MEDS: NORMAL SALINE 0.9% IV (13:09)
[2023-08-14] MEDS: ABATACEPT IV (13:09)
[2023-08-14 13:24] LABS: ALB/GLOB Ratio 0.9 RATIO (0.9-2.4); AST(SGOT) 13 U/L (15-37); Alanine Aminotransfer ALT/SGPT 20 U/L (13-56); Albumin, Serum 3.3 g/dL (3.2-5.0); Alkaline Phosphatase 75 U/L (45-117); Anion Gap 7 (5-15); BUN 12 mg/dL (7-18); BUN/Creat Ratio 15.6 RATIO (10-20); Calcium,Total 9.1 mg/dL (8.5-10.1); Chloride 101 mmol/L (98-107); Creatinine, Serum 0.77 mg/dL (0.55-1.02); EST Glomerular Filtration Rate 77 mL/min (>60); Est Glom Filt Rate - Afr Amer 93 mL/min (>60); Globulin 3.6 g/dL (2.2-4.2); Glucose 101 mg/dL (74-106); Potassium 3.6 mmol/L (3.5-5.1); Protein, Total 6.9 g/dL (6.4-8.2); Sodium Level 135 mmol/L (136-145)
[2023-08-14 13:57] VITALS: BP 168/67; PULSE 61; RESP 16; TEMP 36.7; O2SAT 98
== END 2023-08-14 12:32 | disposition home or self-care (01) ==
LOC: MEDOUTP 12:32
PROVIDERS: PCP Family Medicine Geriatric Medicine; Referring Provider Internal Medicine Rheumatology; Visit Provider Internal Medicine Rheumatology
DX: M05.70 Rheumatoid arthritis with rheumatoid factor of unspecified site without organ or systems involvement (principal); Z79.899 Other long term (current) drug therapy
CPT/HCPCS: 96365; 80053; 85025; J7050; A4216; J0129

== ENCOUNTER 2023-09-18 12:26 | Outpatient (CLI) | payer MEDICARE, OTHER, SELFPAY ==
[2023-09-18 12:33] VITALS: BP 130/59; PULSE 66; RESP 16; TEMP 36.2; O2SAT 100; BMI 22.3
[2023-09-18] MEDS: 0.9% NaCl Peripheral Flush Adult/Peds IV ×2 (12:39→13:01)
[2023-09-18] MEDS: NORMAL SALINE 0.9% IV (13:00)
[2023-09-18] MEDS: ABATACEPT IV (13:00)
[2023-09-18] MEDS: 0.9% NaCl IVPB Med Flush (250 mL) 15 ML IV (13:01)
[2023-09-18 13:58] VITALS: BP 135/57; PULSE 59
== END 2023-09-18 12:27 | disposition home or self-care (01) ==
LOC: MEDOUTP 12:26
PROVIDERS: PCP Family Medicine Geriatric Medicine; Referring Provider Internal Medicine Rheumatology; Visit Provider Internal Medicine Rheumatology
DX: M06.9 Rheumatoid arthritis, unspecified (principal)
CPT/HCPCS: 96365; J7050; A4216; J0129

== ENCOUNTER → 2023-09-22 | Outpatient (CLI) | payer MEDICARE, OTHER, SELFPAY ==
[2023-09-22 15:33] LABS: Absolute Lymphocyte Count 1.92 X10^3/uL (0.83-4.51); Absolute Neutrophil Count 7.5 X10^3/uL (2.0-7.7); Basophil# 0.07 X10^3/uL; Basophil% 0.7 % (0-1); Eosinophil# 0.14 X10^3/uL; Eosinophils% 1.3 % (0-5); Hematocrit 36.9 % (37-47); Hemoglobin 11.9 g/dL (12.0-15.0); Lymphocyte # 1.92 X10^3/ul (0.83-4.51); Lymphocyte % 18.4 % (19-41); Mean Corp Hgb Conc 32.2 g/dL (32-36); Mean Corpuscular Hgb 31.6 pg (27.0-32.0); Mean Corpuscular Volume 98.1 fL (81-99); Mean Platelet Vol. 9.4 fl (6.2-12.0); Monocyte# 0.81 X10^3/uL; Monocyte% 7.8 % (0-10); NRBC Flagged by Analyzer 0 % (0-5); Neutrophil # 7.45 X10^3/uL (2.7-7.7); Neutrophil % 71.3 % (47-70); Platelet Count 343 K/mm3 (150-450); RBC Distribution Width SD 50.1 fl (35.1-43.9); Red Blood Count 3.76 M/mm3 (4.2-5.4); White Blood Count 10.4 K/mm3 (4.4-11.0)
[2023-09-22 16:04] LABS: Vitamin D,25 Hydroxy 30.7 ng/mL
[2023-09-22 16:16] LABS: AST(SGOT) 21 U/L (15-37); Alanine Aminotransfer ALT/SGPT 15 U/L (13-56); Albumin, Serum 3.3 g/dL (3.2-5.0); Alkaline Phosphatase 76 U/L (45-117); Anion Gap 7 (5-15); BUN 12 mg/dL (7-18); Calcium,Total 8.7 mg/dL (8.5-10.1); Chloride 102 mmol/L (98-107); Creatinine, Serum 1.09 mg/dL (0.55-1.02); EST Glomerular Filtration Rate 51 mL/min (>60); Est Glom Filt Rate - Afr Amer 62 mL/min (>60); Globulin 3.4 g/dL (2.2-4.2); Glucose 99 mg/dL (74-106); Protein, Total 6.7 g/dL (6.4-8.2); Sodium Level 136 mmol/L (136-145); Thyroid Stim Hormone (TSH) 1.46 uIU/mL (0.358-3.74)
== END | disposition home or self-care (01) ==
LOC: POLAB3 13:26
PROVIDERS: PCP Family Medicine Geriatric Medicine; Visit Provider Family Medicine Geriatric Medicine
DX: I10 Essential (primary) hypertension (principal); E55.9 Vitamin D deficiency, unspecified
CPT/HCPCS: 36415; 80053; 82306; 84443; 85025

== ENCOUNTER 2023-11-20 09:47 | Outpatient (CLI) | payer MEDICARE, OTHER, SELFPAY ==
[2023-11-20 10:31] LABS: Absolute Lymphocyte Count 1.15 X10^3/uL (0.83-4.51); Absolute Neutrophil Count 4.1 X10^3/uL (2.0-7.7); Basophil# 0.05 X10^3/uL; Basophil% 0.8 % (0-1); Eosinophils% 1.7 % (0-5); Hematocrit 38.2 % (37-47); Hemoglobin 12.4 g/dL (12.0-15.0); Lymphocyte # 1.15 X10^3/ul (0.83-4.51); Lymphocyte % 19.4 % (19-41); Mean Corp Hgb Conc 32.5 g/dL (32-36); Mean Corpuscular Hgb 31.9 pg (27.0-32.0); Mean Corpuscular Volume 98.2 fL (81-99); Monocyte# 0.49 X10^3/uL; Monocyte% 8.3 % (0-10); NRBC Flagged by Analyzer 0 % (0-5); Neutrophil # 4.13 X10^3/uL (2.7-7.7); Neutrophil % 69.6 % (47-70); Platelet Count 334 K/mm3 (150-450); RBC Distribution Width CV 14.2 % (11.6-14.6); RBC Distribution Width SD 50.8 fl (35.1-43.9); Red Blood Count 3.89 M/mm3 (4.2-5.4); White Blood Count 5.9 K/mm3 (4.4-11.0)
[2023-11-20 11:20] LABS: Albumin, Serum 3.5 g/dL (3.2-5.0)
== END 2023-11-20 23:59 | disposition home or self-care (01) ==
LOC: LAB 09:49
PROVIDERS: PCP Family Medicine Geriatric Medicine; Visit Provider Physician Assistant Surgical
DX: Z01.818 Encounter for other preprocedural examination (principal); M16.11 Unilateral primary osteoarthritis, right hip
CPT/HCPCS: 36415; 82040; 85025

== ENCOUNTER 2024-01-05 12:11 | Outpatient (CLI) | payer MEDICARE, OTHER, SELFPAY ==
[2024-01-05 12:44] VITALS: BP 115/61; PULSE 59; RESP 16; TEMP 37.1; O2SAT 98; BMI 21.9
[2024-01-05 12:46] LABS: Absolute Lymphocyte Count 1.09 X10^3/uL (0.83-4.51); Absolute Neutrophil Count 8.7 X10^3/uL (2.0-7.7); Basophil# 0.05 X10^3/uL; Basophil% 0.4 % (0-1); Eosinophils% 1.8 % (0-5); Hematocrit 35.4 % (37-47); Hemoglobin 11.5 g/dL (12.0-15.0); Lymphocyte # 1.09 X10^3/ul (0.83-4.51); Lymphocyte % 9.8 % (19-41); Mean Corp Hgb Conc 32.5 g/dL (32-36); Mean Corpuscular Hgb 31.2 pg (27.0-32.0); Mean Corpuscular Volume 95.9 fL (81-99); Mean Platelet Vol. 8.7 fl (6.2-12.0); Monocyte# 1.09 X10^3/uL; Monocyte% 9.8 % (0-10); NRBC Flagged by Analyzer 0 % (0-5); Neutrophil # 8.69 X10^3/uL (2.7-7.7); Neutrophil % 77.9 % (47-70); Platelet Count 333 K/mm3 (150-450); RBC Distribution Width CV 14.3 % (11.6-14.6); RBC Distribution Width SD 49.7 fl (35.1-43.9); Red Blood Count 3.69 M/mm3 (4.2-5.4); White Blood Count 11.2 K/mm3 (4.4-11.0)
[2024-01-05] MEDS: 0.9% NaCl Peripheral Flush Adult/Peds IV (12:47)
[2024-01-05 13:17] LABS: AST(SGOT) 17 U/L (15-37); Alanine Aminotransfer ALT/SGPT 14 U/L (13-56); Albumin, Serum 3.3 g/dL (3.2-5.0); Alkaline Phosphatase 75 U/L (45-117); Anion Gap 5 (5-15); BUN 18 mg/dL (7-18); BUN/Creat Ratio 29.3 RATIO (10-20); Calcium,Total 8.7 mg/dL (8.5-10.1); Chloride 99 mmol/L (98-107); Creatinine, Serum 0.61 mg/dL (0.55-1.02); EST Glomerular Filtration Rate 99 mL/min (>60); Est Glom Filt Rate - Afr Amer 120 mL/min (>60); Estimated Creatinine Clearance 47.63 ml/min; Globulin 3.4 g/dL (2.2-4.2); Glucose 68 mg/dL (74-106); Potassium 4.3 mmol/L (3.5-5.1); Protein, Total 6.7 g/dL (6.4-8.2); Sodium Level 132 mmol/L (136-145)
[2024-01-05] MEDS: ABATACEPT IV (13:22)
[2024-01-05] MEDS: 0.9% NaCl IVPB Med Flush (250 mL) 15 ML IV (13:22)
[2024-01-05] MEDS: NORMAL SALINE 0.9% IV (13:22)
[2024-01-05 14:12] VITALS: BP 132/56; PULSE 60
== END 2024-01-05 12:12 | disposition home or self-care (01) ==
LOC: MEDOUTP 12:13
PROVIDERS: PCP Family Medicine Geriatric Medicine; Referring Provider Internal Medicine Rheumatology; Visit Provider Internal Medicine Rheumatology
DX: M05.70 Rheumatoid arthritis with rheumatoid factor of unspecified site without organ or systems involvement (principal); Z79.899 Other long term (current) drug therapy
CPT/HCPCS: 96365; 80053; 85025; J7050; A4216; J0129

== ENCOUNTER 2024-02-04 12:20 | Outpatient (CLI) | payer MEDICARE, OTHER, SELFPAY ==
[2024-02-04 12:40] VITALS: BP 139/65; PULSE 57; RESP 16; TEMP 36.7; O2SAT 99
[2024-02-04] MEDS: 0.9% NaCl Peripheral Flush Adult/Peds IV (12:41)
[2024-02-04] MEDS: 0.9% NaCl IVPB Med Flush (250 mL) 15 ML IV (12:50)
[2024-02-04] MEDS: ABATACEPT IV (12:55)
[2024-02-04] MEDS: NORMAL SALINE 0.9% IV (12:55)
[2024-02-04 13:43] VITALS: BP 126/51; PULSE 56; RESP 14; TEMP 37
== END 2024-02-04 12:21 | disposition home or self-care (01) ==
LOC: MEDOUTP 12:20
PROVIDERS: PCP Family Medicine Geriatric Medicine; Referring Provider Internal Medicine Rheumatology; Visit Provider Internal Medicine Rheumatology
DX: M06.9 Rheumatoid arthritis, unspecified (principal)
CPT/HCPCS: 96365; J7050; A4216; J0129

== ENCOUNTER 2024-03-04 11:58 | Outpatient (CLI) | payer MEDICARE, OTHER, SELFPAY ==
[2024-03-04 12:14] VITALS: BP 125/54; PULSE 55; RESP 16; TEMP 36.4; O2SAT 97
[2024-03-04] MEDS: 0.9% NaCl Peripheral Flush Adult/Peds IV ×2 (12:16→12:36)
[2024-03-04] MEDS: NORMAL SALINE 0.9% IV (12:36)
[2024-03-04] MEDS: ABATACEPT IV (12:36)
[2024-03-04] MEDS: 0.9% NaCl IVPB Med Flush (250 mL) 15 ML IV (12:36)
[2024-03-04 13:30] VITALS: BP 129/65; PULSE 72
== END 2024-03-04 23:59 | disposition home or self-care (01) ==
LOC: MEDOUTP 11:59
PROVIDERS: PCP Family Medicine Geriatric Medicine; Referring Provider Internal Medicine Rheumatology; Visit Provider Internal Medicine Rheumatology
DX: M06.9 Rheumatoid arthritis, unspecified (principal)
CPT/HCPCS: 96365; J7050; A4216; J0129

== ENCOUNTER 2024-04-08 11:52 | Outpatient (CLI) | payer MEDICARE, OTHER, SELFPAY ==
[2024-04-08 12:01] VITALS: BP 115/59; PULSE 59; RESP 16; TEMP 36.5; O2SAT 97; BMI 21.9
[2024-04-08] MEDS: 0.9% NaCl Peripheral Flush Adult/Peds IV (12:03)
[2024-04-08] MEDS: 0.9% NaCl IVPB Med Flush (250 mL) 15 ML IV (12:10)
[2024-04-08] MEDS: NORMAL SALINE 0.9% IV (12:35)
[2024-04-08] MEDS: ABATACEPT IV (12:35)
[2024-04-08 13:29] VITALS: BP 99/53; PULSE 55; RESP 16; TEMP 36.4; O2SAT 97
== END 2024-04-08 23:59 | disposition home or self-care (01) ==
LOC: MEDOUTP 11:53
PROVIDERS: PCP Family Medicine Geriatric Medicine; Referring Provider Internal Medicine Rheumatology; Visit Provider Internal Medicine Rheumatology
DX: M06.9 Rheumatoid arthritis, unspecified (principal)
CPT/HCPCS: 96365; J7050; A4216; J0129

== ENCOUNTER 2024-05-06 12:00 | Outpatient (CLI) | payer MEDICARE, OTHER, SELFPAY ==
[2024-05-06 12:20] VITALS: BP 118/57; PULSE 58; RESP 16; TEMP 36.6; O2SAT 97; BMI 22.6
[2024-05-06] MEDS: 0.9% NaCl Peripheral Flush Adult/Peds IV (12:22)
[2024-05-06] MEDS: 0.9% Normal Saline (100mL Bag) 100 ML 15 ML IV (12:22)
[2024-05-06] MEDS: NORMAL SALINE 0.9% IV (12:22)
[2024-05-06] MEDS: ABATACEPT IV (12:22)
[2024-05-06 12:31] LABS: Absolute Lymphocyte Count 1.78 X10^3/uL (0.83-4.51); Absolute Neutrophil Count 8.3 X10^3/uL (2.0-7.7); Basophil# 0.06 X10^3/uL; Basophil% 0.5 % (0-1); Eosinophil# 0.08 X10^3/uL; Eosinophils% 0.7 % (0-5); Hematocrit 34.9 % (37-47); Hemoglobin 11.6 g/dL (12.0-15.0); Lymphocyte # 1.78 X10^3/ul (0.83-4.51); Lymphocyte % 16.1 % (19-41); Mean Corp Hgb Conc 33.2 g/dL (32-36); Mean Corpuscular Hgb 31.1 pg (27.0-32.0); Mean Corpuscular Volume 93.6 fL (81-99); Monocyte# 0.78 X10^3/uL; Monocyte% 7.1 % (0-10); NRBC Flagged by Analyzer 0 % (0-5); Neutrophil # 8.27 X10^3/uL (2.7-7.7); Neutrophil % 75.1 % (47-70); Platelet Count 320 K/mm3 (150-450); RBC Distribution Width CV 15.2 % (11.6-14.6); RBC Distribution Width SD 52.3 fl (35.1-43.9); Red Blood Count 3.73 M/mm3 (4.2-5.4)
[2024-05-06 13:18] VITALS: BP 128/54; PULSE 60; RESP 16
[2024-05-06 13:24] LABS: ALB/GLOB Ratio 0.9 RATIO (0.9-2.4); AST(SGOT) 24 U/L (15-37); Alanine Aminotransfer ALT/SGPT 19 U/L (13-56); Albumin, Serum 3.1 g/dL (3.2-5.0); Alkaline Phosphatase 70 U/L (45-117); Anion Gap 5 (5-15); BUN 16 mg/dL (7-18); Calcium,Total 9.1 mg/dL (8.5-10.1); Chloride 100 mmol/L (98-107); Creatinine, Serum 0.76 mg/dL (0.55-1.02); EST Glomerular Filtration Rate 77 mL/min (>60); Est Glom Filt Rate - Afr Amer 93 mL/min (>60); Estimated Creatinine Clearance 44.85 ml/min; Globulin 3.4 g/dL (2.2-4.2); Glucose 122 mg/dL (74-106); Potassium 4.3 mmol/L (3.5-5.1); Protein, Total 6.5 g/dL (6.4-8.2); Sodium Level 132 mmol/L (136-145)
[2024-05-06 20:23] LABS: Xtra Tube EP Lab EXTRA TUBE
== END 2024-05-06 23:59 | disposition home or self-care (01) ==
LOC: MEDOUTP 12:00
PROVIDERS: PCP Family Medicine Geriatric Medicine; Referring Provider Internal Medicine Rheumatology; Visit Provider Internal Medicine Rheumatology
DX: M05.70 Rheumatoid arthritis with rheumatoid factor of unspecified site without organ or systems involvement (principal); Z79.899 Other long term (current) drug therapy
CPT/HCPCS: 96365; 80053; 85025; A4216; J0129

== ENCOUNTER 2024-06-10 12:17 | Outpatient (CLI) | payer MEDICARE, OTHER, SELFPAY ==
[2024-06-10 12:31] VITALS: BP 144/72; PULSE 57; RESP 16; TEMP 36.3; O2SAT 96
[2024-06-10] MEDS: 0.9% NaCl Peripheral Flush Adult/Peds IV (12:38)
[2024-06-10] MEDS: 0.9% NaCl IVPB Med Flush (250 mL) 15 ML IV (12:38)
[2024-06-10] MEDS: ABATACEPT IV (13:32)
[2024-06-10] MEDS: NORMAL SALINE 0.9% IV (13:32)
[2024-06-10 14:23] VITALS: BP 146/72; PULSE 52; RESP 16; TEMP 36.6; O2SAT 98
== END 2024-06-10 23:59 | disposition home or self-care (01) ==
LOC: MEDOUTP 12:17
PROVIDERS: PCP Family Medicine Geriatric Medicine; Referring Provider Internal Medicine Rheumatology; Visit Provider Internal Medicine Rheumatology
DX: M06.9 Rheumatoid arthritis, unspecified (principal)
CPT/HCPCS: 96365; 96361; J7050; A4216; J0129

== ENCOUNTER 2024-07-08 12:47 | Outpatient (CLI) | payer MEDICARE, OTHER, SELFPAY ==
[2024-07-08 13:00] VITALS: BP 122/57; PULSE 58; RESP 16; TEMP 36.1; O2SAT 98
[2024-07-08] MEDS: 0.9% NaCl Peripheral Flush Adult/Peds IV (13:03)
[2024-07-08] MEDS: 0.9% NaCl IVPB Med Flush (250 mL) 15 ML IV (13:06)
[2024-07-08] MEDS: ABATACEPT IV (13:23)
[2024-07-08] MEDS: NORMAL SALINE 0.9% IV (13:23)
== END 2024-07-08 23:59 | disposition home or self-care (01) ==
LOC: MEDOUTP 12:47
PROVIDERS: PCP Family Medicine Geriatric Medicine; Referring Provider Internal Medicine Rheumatology; Visit Provider Internal Medicine Rheumatology
DX: M06.9 Rheumatoid arthritis, unspecified (principal)
CPT/HCPCS: 96365; J7050; A4216; J0129

== ENCOUNTER 2024-08-05 12:22 | Outpatient (CLI) | payer MEDICARE, OTHER, SELFPAY ==
[2024-08-05] MEDS: 0.9% NaCl Peripheral Flush Adult/Peds IV (12:40)
[2024-08-05] MEDS: 0.9% NaCl IVPB Med Flush (250 mL) 15 ML IV (12:41)
[2024-08-05 12:50] LABS: Absolute Lymphocyte Count 2.21 X10^3/uL (0.83-4.51); Absolute Neutrophil Count 6.7 X10^3/uL (2.0-7.7); Basophil# 0.05 X10^3/uL; Basophil% 0.5 % (0-1); Eosinophil# 0.14 X10^3/uL; Eosinophils% 1.4 % (0-5); Hematocrit 36.3 % (37-47); Hemoglobin 12.2 g/dL (12.0-15.0); Lymphocyte # 2.21 X10^3/ul (0.83-4.51); Lymphocyte % 21.9 % (19-41); Mean Corp Hgb Conc 33.6 g/dL (32-36); Mean Corpuscular Volume 95.3 fL (81-99); Mean Platelet Vol. 8.9 fl (6.2-12.0); Monocyte# 0.91 X10^3/uL; NRBC Flagged by Analyzer 0 % (0-5); Neutrophil # 6.74 X10^3/uL (2.7-7.7); Neutrophil % 66.9 % (47-70); Platelet Count 344 K/mm3 (150-450); RBC Distribution Width CV 14.8 % (11.6-14.6); RBC Distribution Width SD 51.2 fl (35.1-43.9); Red Blood Count 3.81 M/mm3 (4.2-5.4); White Blood Count 10.1 K/mm3 (4.4-11.0)
[2024-08-05 12:52] VITALS: BP 135/63; PULSE 50; RESP 16; TEMP 36.5; O2SAT 99
[2024-08-05] MEDS: ABATACEPT IV (13:12)
[2024-08-05] MEDS: NORMAL SALINE 0.9% IV (13:12)
[2024-08-05 13:39] LABS: AST(SGOT) 17 U/L (15-37); Alanine Aminotransfer ALT/SGPT 15 U/L (13-56); Albumin, Serum 3.2 g/dL (3.2-5.0); Alkaline Phosphatase 69 U/L (45-117); Anion Gap 4 (5-15); BUN 11 mg/dL (7-18); BUN/Creat Ratio 13.5 RATIO (10-20); Calcium,Total 9.1 mg/dL (8.5-10.1); Chloride 100 mmol/L (98-107); Creatinine, Serum 0.82 mg/dL (0.55-1.02); EST Glomerular Filtration Rate 71 mL/min (>60); Est Glom Filt Rate - Afr Amer 86 mL/min (>60); Globulin 3.2 g/dL (2.2-4.2); Glucose 75 mg/dL (74-106); Potassium 4.3 mmol/L (3.5-5.1); Protein, Total 6.4 g/dL (6.4-8.2); Sodium Level 133 mmol/L (136-145)
[2024-08-05 14:08] VITALS: BP 120/67; PULSE 75
== END 2024-08-05 23:59 | disposition home or self-care (01) ==
LOC: MEDOUTP 12:22
PROVIDERS: PCP Family Medicine Geriatric Medicine; Referring Provider Internal Medicine Rheumatology; Visit Provider Internal Medicine Rheumatology
DX: M05.70 Rheumatoid arthritis with rheumatoid factor of unspecified site without organ or systems involvement (principal); Z79.899 Other long term (current) drug therapy; M17.0 Bilateral primary osteoarthritis of knee; M16.11 Unilateral primary osteoarthritis, right hip
CPT/HCPCS: 96365; 80053; 85025; J7050; A4216; J0129

== ENCOUNTER 2024-09-02 12:23 | Outpatient (CLI) | payer MEDICARE, OTHER, SELFPAY ==
[2024-09-02] MEDS: 0.9% NaCl Peripheral Flush Adult/Peds IV (12:54)
[2024-09-02 12:58] VITALS: BP 169/69; PULSE 78; RESP 16; TEMP 36.1; O2SAT 97; BMI 22.6
[2024-09-02] MEDS: NORMAL SALINE 0.9% IV (13:19)
[2024-09-02] MEDS: ABATACEPT IV (13:19)
[2024-09-02] MEDS: 0.9% NaCl IVPB Med Flush (250 mL) 15 ML IV (13:19)
[2024-09-02 14:11] VITALS: BP 136/65; PULSE 72
== END 2024-09-02 23:59 | disposition home or self-care (01) ==
LOC: MEDOUTP 12:23
PROVIDERS: PCP Family Medicine Geriatric Medicine; Referring Provider Internal Medicine Rheumatology; Visit Provider Internal Medicine Rheumatology
DX: M06.9 Rheumatoid arthritis, unspecified (principal)
CPT/HCPCS: 96365; J7050; A4216; J0129

== ENCOUNTER 2024-09-30 12:21 | Outpatient (CLI) | payer MEDICARE, OTHER, SELFPAY ==
[2024-09-30 12:30] VITALS: BP 144/63; PULSE 53; RESP 16; TEMP 35.8; O2SAT 98
[2024-09-30] MEDS: ABATACEPT IV (12:54)
[2024-09-30] MEDS: 0.9% NaCl IVPB Med Flush (250 mL) 15 ML IV (12:54)
[2024-09-30] MEDS: 0.9% NaCl Peripheral Flush Adult/Peds IV (12:54)
[2024-09-30] MEDS: NORMAL SALINE 0.9% IV (12:54)
[2024-09-30 13:50] VITALS: BP 145/62; PULSE 53; RESP 16; TEMP 36.6; O2SAT 99
== END 2024-09-30 23:59 | disposition home or self-care (01) ==
LOC: MEDOUTP 12:21
PROVIDERS: PCP Family Medicine Geriatric Medicine; Referring Provider Internal Medicine Rheumatology; Visit Provider Internal Medicine Rheumatology
DX: M06.9 Rheumatoid arthritis, unspecified (principal)
CPT/HCPCS: 96365; A4216; J0129

== ENCOUNTER 2024-10-28 12:24 | Outpatient (CLI) | payer MEDICARE, OTHER, SELFPAY ==
[2024-10-28 12:50] VITALS: BP 126/61; PULSE 51; RESP 16; TEMP 36.3; O2SAT 97; BMI 22.6
[2024-10-28] MEDS: 0.9% NaCl Peripheral Flush Adult/Peds IV (12:53)
[2024-10-28] MEDS: 0.9% Normal Saline (100mL Bag) 100 ML 15 ML IV (13:00)
[2024-10-28 13:07] LABS: Absolute Lymphocyte Count 1.94 X10^3/uL (0.83-4.51); Absolute Neutrophil Count 5.7 X10^3/uL (2.0-7.7); Basophil# 0.04 X10^3/uL; Basophil% 0.5 % (0-1); Eosinophil# 0.13 X10^3/uL; Eosinophils% 1.5 % (0-5); Hematocrit 36.3 % (37-47); Lymphocyte # 1.94 X10^3/ul (0.83-4.51); Mean Corp Hgb Conc 33.1 g/dL (32-36); Mean Corpuscular Hgb 31.6 pg (27.0-32.0); Mean Corpuscular Volume 95.5 fL (81-99); Mean Platelet Vol. 8.7 fl (6.2-12.0); Monocyte# 0.65 X10^3/uL; Monocyte% 7.7 % (0-10); NRBC Flagged by Analyzer 0 % (0-5); Neutrophil # 5.65 X10^3/uL (2.7-7.7); Neutrophil % 66.9 % (47-70); Platelet Count 337 K/mm3 (150-450); RBC Distribution Width CV 14.4 % (11.6-14.6); RBC Distribution Width SD 49.8 fl (35.1-43.9); White Blood Count 8.4 K/mm3 (4.4-11.0)
[2024-10-28] MEDS: ABATACEPT IV (13:21)
[2024-10-28] MEDS: NORMAL SALINE 0.9% IV (13:21)
[2024-10-28 13:26] LABS: AST(SGOT) 17 U/L (15-37); Alanine Aminotransfer ALT/SGPT 13 U/L (13-56); Albumin, Serum 3.2 g/dL (3.2-5.0); Alkaline Phosphatase 66 U/L (45-117); Anion Gap 6 (5-15); BUN 12 mg/dL (7-18); BUN/Creat Ratio 18.1 RATIO (10-20); Calcium,Total 8.8 mg/dL (8.5-10.1); Chloride 100 mmol/L (98-107); Creatinine, Serum 0.66 mg/dL (0.55-1.02); EST Glomerular Filtration Rate 91 mL/min (>60); Est Glom Filt Rate - Afr Amer 110 mL/min (>60); Estimated Creatinine Clearance 44.85 ml/min; Globulin 3.3 g/dL (2.2-4.2); Glucose 75 mg/dL (74-106); Potassium 4.2 mmol/L (3.5-5.1); Protein, Total 6.5 g/dL (6.4-8.2); Sodium Level 134 mmol/L (136-145)
[2024-10-28 14:12] VITALS: BP 147/63; PULSE 54
== END 2024-10-28 23:59 | disposition home or self-care (01) ==
LOC: MEDOUTP 12:25
PROVIDERS: PCP Family Medicine Geriatric Medicine; Referring Provider Internal Medicine Rheumatology; Visit Provider Internal Medicine Rheumatology
DX: M06.9 Rheumatoid arthritis, unspecified (principal); K50.90 Crohn's disease, unspecified, without complications; Z79.899 Other long term (current) drug therapy; M17.0 Bilateral primary osteoarthritis of knee; M16.11 Unilateral primary osteoarthritis, right hip
CPT/HCPCS: 96365; 80053; 85025; A4216; J0129

== ENCOUNTER 2024-11-25 12:22 | Outpatient (CLI) | payer MEDICARE, OTHER, SELFPAY ==
[2024-11-25 12:46] VITALS: BP 141/76; PULSE 54; RESP 16; TEMP 36; O2SAT 99; BMI 22.6
[2024-11-25] MEDS: 0.9% NaCl Peripheral Flush Adult/Peds IV (12:58)
[2024-11-25] MEDS: NORMAL SALINE 0.9% IV (13:12)
[2024-11-25] MEDS: ABATACEPT IV (13:12)
[2024-11-25 14:09] VITALS: BP 139/58; PULSE 55
== END 2024-11-25 23:59 | disposition home or self-care (01) ==
LOC: MEDOUTP 12:22
PROVIDERS: PCP Family Medicine Geriatric Medicine; Referring Provider Internal Medicine Rheumatology; Visit Provider Internal Medicine Rheumatology
DX: M05.70 Rheumatoid arthritis with rheumatoid factor of unspecified site without organ or systems involvement (principal)
CPT/HCPCS: 96365; A4216; J0129

== ENCOUNTER → 2024-12-08 | Outpatient (CLI) | payer MEDICARE, OTHER, SELFPAY ==
[2024-12-08 13:39] LABS: Absolute Lymphocyte Count 1.81 X10^3/uL (0.83-4.51); Absolute Neutrophil Count 5.4 X10^3/uL (2.0-7.7); Basophil# 0.06 X10^3/uL; Basophil% 0.8 % (0-1); Eosinophil# 0.09 X10^3/uL; Eosinophils% 1.1 % (0-5); Hematocrit 37.5 % (37-47); Hemoglobin 12.6 g/dL (12.0-15.0); Lymphocyte # 1.81 X10^3/ul (0.83-4.51); Lymphocyte % 22.6 % (19-41); Mean Corp Hgb Conc 33.6 g/dL (32-36); Mean Corpuscular Hgb 32.7 pg (27.0-32.0); Mean Corpuscular Volume 97.4 fL (81-99); Mean Platelet Vol. 9.1 fl (6.2-12.0); Monocyte# 0.59 X10^3/uL; Monocyte% 7.4 % (0-10); NRBC Flagged by Analyzer 0 % (0-5); Neutrophil # 5.43 X10^3/uL (2.7-7.7); Neutrophil % 67.8 % (47-70); Platelet Count 338 K/mm3 (150-450); RBC Distribution Width CV 14.7 % (11.6-14.6); RBC Distribution Width SD 51.9 fl (35.1-43.9); Red Blood Count 3.85 M/mm3 (4.2-5.4)
[2024-12-08 14:51] LABS: ALB/GLOB Ratio 1.7 RATIO (0.9-2.4); AST(SGOT) 30 U/L (<=31); Alanine Aminotransfer ALT/SGPT 15 U/L (<=34); Albumin, Serum 4.1 g/dL (3.4-4.8); Alkaline Phosphatase 66 U/L (35-104); Anion Gap 10 (5-15); BUN 12 mg/dL (4-19); BUN/Creat Ratio 18.5 RATIO (10-20); Calcium 9.3 mg/dL (7.6-11.0); Carbon Dioxide 24.6 mmol/L (22.0-29.0); Chloride 98 mmol/L (96-108); Creatinine, Serum 0.7 mg/dL (0.6-1.0); EST Glomerular Filtration Rate 88 (>60); Globulin 2.5 g/dL (2.2-4.2); Glucose 84 mg/dL (70-99); Potassium 4.4 mmol/L (3.3-5.1); Protein, Total 6.6 g/dL (5.9-8.4); Sodium Level 133 mmol/L (133-145); Total Bilirubin 0.51 mg/dL (0.00-1.30)
== END | disposition home or self-care (01) ==
LOC: POLAB3 13:15
PROVIDERS: PCP Family Medicine Geriatric Medicine; Visit Provider Family Medicine Geriatric Medicine
DX: I10 Essential (primary) hypertension (principal); E55.9 Vitamin D deficiency, unspecified
CPT/HCPCS: 36415; 80053; 82306; 84443; 85025

== ENCOUNTER 2024-12-23 12:33 | Outpatient (CLI) | payer MEDICARE, OTHER, SELFPAY ==
[2024-12-23] MEDS: 0.9% NaCl Peripheral Flush Adult/Peds IV (12:47)
[2024-12-23] MEDS: 0.9% Normal Saline (100mL Bag) 100 ML 15 ML IV (12:48)
[2024-12-23 12:51] VITALS: BP 153/60; PULSE 57; RESP 16; TEMP 35.9; O2SAT 96; BMI 22.6
[2024-12-23] MEDS: NORMAL SALINE 0.9% IV (13:11)
[2024-12-23] MEDS: ABATACEPT IV (13:11)
[2024-12-23 14:08] VITALS: BP 119/55; PULSE 58
== END 2024-12-23 23:59 | disposition home or self-care (01) ==
LOC: MEDOUTP 12:34
PROVIDERS: PCP Family Medicine Geriatric Medicine; Referring Provider Internal Medicine Rheumatology; Visit Provider Internal Medicine Rheumatology
DX: M06.831 Other specified rheumatoid arthritis, right wrist (principal)
CPT/HCPCS: 96365; A4216; J0129

== ENCOUNTER 2025-01-20 12:19 | Outpatient (CLI) | payer MEDICARE, OTHER, SELFPAY ==
[2025-01-20 12:36] VITALS: BP 118/60; PULSE 53; RESP 14; O2SAT 97; BMI 22.6
[2025-01-20] MEDS: NORMAL SALINE 0.9% IV (13:06)
[2025-01-20] MEDS: ABATACEPT IV (13:06)
[2025-01-20] MEDS: 0.9% NaCl Peripheral Flush Adult IV (13:07)
[2025-01-20 13:18] LABS: Absolute Lymphocyte Count 2.23 X10^3/uL (0.83-4.51); Absolute Neutrophil Count 7.3 X10^3/uL (2.0-7.7); Basophil# 0.06 X10^3/uL; Basophil% 0.6 % (0-1); Eosinophil# 0.17 X10^3/uL; Eosinophils% 1.6 % (0-5); Hematocrit 36.5 % (37-47); Hemoglobin 12.5 g/dL (12.0-15.0); Lymphocyte # 2.23 X10^3/ul (0.83-4.51); Lymphocyte % 21.2 % (19-41); Mean Corp Hgb Conc 34.2 g/dL (32-36); Mean Corpuscular Hgb 32.6 pg (27.0-32.0); Mean Corpuscular Volume 95.3 fL (81-99); Mean Platelet Vol. 9.1 fl (6.2-12.0); Monocyte# 0.71 X10^3/uL; Monocyte% 6.7 % (0-10); NRBC Flagged by Analyzer 0 % (0-5); Neutrophil # 7.32 X10^3/uL (2.7-7.7); Neutrophil % 69.6 % (47-70); Platelet Count 337 K/mm3 (150-450); RBC Distribution Width CV 14.3 % (11.6-14.6); RBC Distribution Width SD 49.2 fl (35.1-43.9); Red Blood Count 3.83 M/mm3 (4.2-5.4); White Blood Count 10.5 K/mm3 (4.4-11.0)
[2025-01-20 13:52] VITALS: BP 103/55; PULSE 53; RESP 14; O2SAT 94
[2025-01-20 13:54] LABS: ALB/GLOB Ratio 1.5 RATIO (0.9-2.4); AST(SGOT) 24 U/L (<=31); Alanine Aminotransfer ALT/SGPT 14 U/L (<=34); Alkaline Phosphatase 73 U/L (35-104); Anion Gap 11 (5-15); BUN 17 mg/dL (4-19); BUN/Creat Ratio 24.5 RATIO (10-20); Calcium,Total 9.4 mg/dL (7.6-11.0); Carbon Dioxide 23.9 mmol/L (21.0-32.0); Chloride 96 mmol/L (98-108); Creatinine, Serum 0.69 mg/dL (0.70-1.20); EST Glomerular Filtration Rate 87 (>60); Estimated Creatinine Clearance 44.85 ml/min (50-250); Globulin 2.7 g/dL (2.2-4.2); Glucose 90 mg/dL (70-99); Potassium 4.4 mmol/L (3.3-5.1); Protein, Total 6.6 g/dL (5.9-8.4); Sodium Level 131 mmol/L (133-145); Total Bilirubin 0.36 mg/dL (0.00-1.30)
== END 2025-01-20 23:59 | disposition home or self-care (01) ==
LOC: MEDOUTP 12:20
PROVIDERS: PCP Family Medicine Geriatric Medicine; Referring Provider Internal Medicine Rheumatology; Visit Provider Internal Medicine Rheumatology
DX: M05.70 Rheumatoid arthritis with rheumatoid factor of unspecified site without organ or systems involvement (principal); M06.831 Other specified rheumatoid arthritis, right wrist; K50.90 Crohn's disease, unspecified, without complications; Z79.899 Other long term (current) drug therapy
CPT/HCPCS: 96365; 80053; 85025; A4216; J0129

== ENCOUNTER 2025-02-17 12:17 | Outpatient (CLI) | payer MEDICARE, OTHER, SELFPAY ==
[2025-02-17 12:35] VITALS: BP 138/59; PULSE 52; RESP 14; TEMP 35.8; O2SAT 98; BMI 22.6
[2025-02-17] MEDS: ABATACEPT IV (13:18)
[2025-02-17] MEDS: NORMAL SALINE 0.9% IV (13:18)
[2025-02-17 14:00] VITALS: BP 150/63; PULSE 52
== END 2025-02-17 23:59 | disposition home or self-care (01) ==
LOC: MEDOUTP 12:17
PROVIDERS: PCP Family Medicine Geriatric Medicine; Referring Provider Internal Medicine Rheumatology; Visit Provider Internal Medicine Rheumatology
DX: M06.9 Rheumatoid arthritis, unspecified (principal)
CPT/HCPCS: 96365; J0129

== ENCOUNTER 2025-03-17 11:42 | Outpatient (CLI) | payer MEDICARE, OTHER, SELFPAY ==
[2025-03-17 11:47] VITALS: BP 157/68; PULSE 58; RESP 16; TEMP 36.4; O2SAT 93
[2025-03-17] MEDS: 0.9% NaCl Peripheral Flush Adult IV (11:49)
[2025-03-17] MEDS: 0.9% NaCl IVPB Med Flush (100mL) 15 ML IV (11:54)
[2025-03-17] MEDS: ABATACEPT IV (12:30)
[2025-03-17] MEDS: NORMAL SALINE 0.9% IV (12:30)
[2025-03-17 13:21] VITALS: BP 117/56; PULSE 53; RESP 16; TEMP 36.4; O2SAT 96
== END 2025-03-17 23:59 | disposition home or self-care (01) ==
LOC: MEDOUTP 11:42
PROVIDERS: PCP Family Medicine Geriatric Medicine; Referring Provider Internal Medicine Rheumatology; Visit Provider Internal Medicine Rheumatology
DX: M06.9 Rheumatoid arthritis, unspecified (principal)
CPT/HCPCS: 96365; 96361; A4216; J0129

== ENCOUNTER 2025-04-14 11:48 | Outpatient (CLI) | payer MEDICARE, OTHER, SELFPAY ==
[2025-04-14 12:01] VITALS: BP 122/57; PULSE 58; RESP 16; TEMP 36.3; O2SAT 96; BMI 23.0
[2025-04-14] MEDS: 0.9% NaCl IVPB Med Flush (100mL) 15 ML IV (12:54)
[2025-04-14] MEDS: ABATACEPT IV (12:54)
[2025-04-14] MEDS: NORMAL SALINE 0.9% IV (12:54)
[2025-04-14 13:44] VITALS: BP 109/58; PULSE 58
== END 2025-04-14 23:59 | disposition home or self-care (01) ==
LOC: MEDOUTP 11:48
PROVIDERS: PCP Family Medicine Geriatric Medicine; Referring Provider Internal Medicine Rheumatology; Visit Provider Internal Medicine Rheumatology
DX: M06.9 Rheumatoid arthritis, unspecified (principal)
CPT/HCPCS: 96365; J0129

== ENCOUNTER → 2025-05-13 | Outpatient (CLI) | payer MEDICARE, OTHER, SELFPAY ==
[2025-05-13 15:53] LABS: Hematocrit 35.3 % (37-47); Hemoglobin 11.8 g/dL (12.0-15.0); Immature Granulocytes Count 0.030 X10^3/uL (0.0-0.0); Mean Corp Hgb Conc 33.4 g/dL (32-36); Mean Corpuscular Volume 97.2 fL (81-99); Mean Platelet Vol. 9.3 fl (6.2-12.0); NRBC Flagged by Analyzer 0 % (0-5); Platelet Count 318 K/mm3 (150-450); RBC Distribution Width CV 14.3 % (11.6-14.6); RBC Distribution Width SD 50.3 fl (35.1-43.9); Red Blood Count 3.63 M/mm3 (4.2-5.4); White Blood Count 10.1 K/mm3 (4.4-11.0)
[2025-05-13 16:24] LABS: AST(SGOT) 22 U/L (<=31); Alanine Aminotransfer ALT/SGPT 11 U/L (<=34); Albumin, Serum 3.8 g/dL (3.4-4.8); Alkaline Phosphatase 72 U/L (35-104); Anion Gap 10 (5-15); BUN 13 mg/dL (4-19); BUN/Creat Ratio 20.2 RATIO (10-20); Calcium,Total 9.0 mg/dL (7.6-11.0); Carbon Dioxide 23.9 mmol/L (21.0-32.0); Chloride 97 mmol/L (98-108); Globulin 2.3 g/dL (2.2-4.2); Glucose 97 mg/dL (70-99); Potassium 3.9 mmol/L (3.3-5.1)
== END | disposition home or self-care (01) ==
LOC: MTLAB 13:12
PROVIDERS: PCP Family Medicine Geriatric Medicine; Referring Provider Internal Medicine Rheumatology; Visit Provider Internal Medicine Rheumatology
DX: M05.70 Rheumatoid arthritis with rheumatoid factor of unspecified site without organ or systems involvement (principal); Z79.899 Other long term (current) drug therapy
CPT/HCPCS: 36415; 80053; 85025

== ENCOUNTER 2025-05-18 12:27 | Outpatient (CLI) | payer MEDICARE, OTHER, SELFPAY ==
[2025-05-18 12:34] VITALS: BP 146/58; PULSE 57; RESP 16; TEMP 35.7; O2SAT 98
[2025-05-18] MEDS: 0.9% NaCl Peripheral Flush Adult IV (12:38)
[2025-05-18] MEDS: 0.9% NaCl IVPB Med Flush (100mL) 15 ML IV (13:19)
[2025-05-18] MEDS: NORMAL SALINE 0.9% IV (13:30)
[2025-05-18] MEDS: ABATACEPT IV (13:30)
[2025-05-18 14:21] VITALS: BP 112/46; PULSE 76; RESP 16; TEMP 35.9; O2SAT 98
== END 2025-05-18 23:59 | disposition home or self-care (01) ==
LOC: MEDOUTP 12:27
PROVIDERS: PCP Family Medicine Geriatric Medicine; Referring Provider Internal Medicine Rheumatology; Visit Provider Internal Medicine Rheumatology
DX: M06.9 Rheumatoid arthritis, unspecified (principal)
CPT/HCPCS: 96365; A4216; J0129

== ENCOUNTER 2025-06-15 12:20 | Outpatient (CLI) | payer MEDICARE, OTHER, SELFPAY ==
[2025-06-15 12:25] VITALS: BP 157/71; PULSE 59; RESP 16; TEMP 35.8; O2SAT 97; BMI 23.0
[2025-06-15] MEDS: 0.9% NaCl Peripheral Flush Adult IV (12:37)
[2025-06-15] MEDS: 0.9% NaCl IVPB Med Flush (100mL) 15 ML IV (12:37)
[2025-06-15] MEDS: NORMAL SALINE 0.9% IV (13:09)
[2025-06-15] MEDS: ABATACEPT IV (13:09)
[2025-06-15 13:57] VITALS: BP 141/54; PULSE 63; RESP 16; TEMP 36.6; O2SAT 93
== END 2025-06-15 23:59 | disposition home or self-care (01) ==
LOC: MEDOUTP 12:20
PROVIDERS: PCP Family Medicine Geriatric Medicine; Referring Provider Internal Medicine Rheumatology; Visit Provider Internal Medicine Rheumatology
DX: M06.4 Inflammatory polyarthropathy (principal)
CPT/HCPCS: 96365; A4216; J0129

== ENCOUNTER 2025-07-15 12:21 | Outpatient (CLI) | payer MEDICARE, OTHER, SELFPAY ==
[2025-07-15 12:28] VITALS: BP 141/59; PULSE 62; RESP 16; TEMP 35.9; O2SAT 97; BMI 23.0
[2025-07-15] MEDS: 0.9% NaCl Peripheral Flush Adult IV (12:35)
[2025-07-15] MEDS: 0.9% NaCl IVPB Med Flush (100mL) 15 ML IV (13:08)
[2025-07-15] MEDS: ABATACEPT IV (13:08)
[2025-07-15] MEDS: NORMAL SALINE 0.9% IV (13:08)
[2025-07-15 13:54] VITALS: BP 120/41; PULSE 55; RESP 16; TEMP 35.8; O2SAT 100
== END 2025-07-15 23:59 | disposition home or self-care (01) ==
LOC: MEDOUTP 12:22
PROVIDERS: PCP Family Medicine Geriatric Medicine; Referring Provider Internal Medicine Rheumatology; Visit Provider Internal Medicine Rheumatology
DX: M06.9 Rheumatoid arthritis, unspecified (principal)
CPT/HCPCS: 96365; A4216; J0129

== ENCOUNTER 2025-08-19 10:01 | Outpatient (CLI) | payer MEDICARE, OTHER, SELFPAY ==
[2025-08-19 10:23] VITALS: BP 129/63; PULSE 58; RESP 16; TEMP 36.2; O2SAT 97; BMI 23.0
[2025-08-19] MEDS: 0.9% NaCl Peripheral Flush Adult IV (10:25)
[2025-08-19] MEDS: 0.9% NaCl IVPB Med Flush (100mL) 15 ML IV (10:27)
[2025-08-19 10:29] LABS: Hematocrit 39.4 % (37-47); Hemoglobin 13.2 g/dL (12.0-15.0); Immature Granulocytes Count 0.010 X10^3/uL (0.0-0.0); Mean Corp Hgb Conc 33.5 g/dL (32-36); Mean Corpuscular Volume 96.3 fL (81-99); Mean Platelet Vol. 9.1 fl (6.2-12.0); NRBC Flagged by Analyzer 0 % (0-5); Platelet Count 338 K/mm3 (150-450); RBC Distribution Width CV 14.0 % (11.6-14.6); RBC Distribution Width SD 48.6 fl (35.1-43.9); Red Blood Count 4.09 M/mm3 (4.2-5.4); White Blood Count 6.8 K/mm3 (4.4-11.0)
[2025-08-19] MEDS: NORMAL SALINE 0.9% IV (10:45)
[2025-08-19] MEDS: ABATACEPT IV (10:45)
[2025-08-19 11:29] VITALS: BP 125/47; PULSE 55; RESP 16; TEMP 36.4; O2SAT 98
[2025-08-19 11:32] LABS: AST(SGOT) 23 U/L (<=31); Alanine Aminotransfer ALT/SGPT 11 U/L (<=34); Albumin, Serum 4.0 g/dL (3.4-4.8); Alkaline Phosphatase 65 U/L (35-104); Anion Gap 8 (5-15); BUN 14 mg/dL (4-19); BUN/Creat Ratio 18.6 RATIO (10-20); Calcium,Total 9.3 mg/dL (7.6-11.0); Carbon Dioxide 27.4 mmol/L (21.0-32.0); Chloride 100 mmol/L (98-108); Estimated Creatinine Clearance 44.08 ml/min (50-250); Globulin 2.6 g/dL (2.2-4.2); Glucose 90 mg/dL (70-99); Potassium 4.1 mmol/L (3.3-5.1)
== END 2025-08-19 23:59 | disposition home or self-care (01) ==
LOC: MEDOUTP 10:02
PROVIDERS: PCP Family Medicine Geriatric Medicine; Referring Provider Internal Medicine Rheumatology; Visit Provider Internal Medicine Rheumatology
DX: M05.70 Rheumatoid arthritis with rheumatoid factor of unspecified site without organ or systems involvement (principal); Z79.899 Other long term (current) drug therapy
CPT/HCPCS: 80053; 85025; 96365; A4216; J0129

== ENCOUNTER → 2025-08-20 | Outpatient (CLI) | payer MEDICARE, OTHER, SELFPAY ==
--- OUTSIDE RECORDS SUMMARY | 2025-08-20 10:08 | XMS RPT_ITS | CCD ---
Author Organization [facility] CliniSyms Care Team Providers Care Electrical Maintenance Man Name Role Phone Sade Matthews Unavailable [facility], [facility] Unavailable Michael Wesley Unavailable Renita Richardson Unavailable Unavailable long, isha Unavailable Unavailable Unavailable Unavailable Sade Matthews Unavailable [facility], [facility] Unavailable Michael Wesley Unavailable Renita Richardson Unavailable Unavailable Darlene, isha Unavailable Unavailable Unavailable Unavailable Renita Richardson Unavailable Unavailable Jerri Chen Unavailable Unavailable Sade Matthews DO Unavailable Dr. Michael Wesley Unavailable Jerri Chen LPN Unavailable Unavailable Yuliana Ritchie LPN Unavailable Unavailable Renita Richardson RN Unavailable Unavailable Unavailable Unavailable Yari Guardado Unavailable Dr. Sade Matthews Primary Care Provider [phone] Dr. Sade Matthews Referring Provider [phone] NESS Rendon Attending Provider Sade Matthews DO Unavailable JAGDEEP HOFFMAN PA-C Attending Unavailable JUANI RILEY, DR AMADOR Duarte Attending Unavailab abisai PERRY CAR RENTAL SERVICE ATTENDANT-PATIENT SERVICES MANAGER, JELLY De Jesus Consulting Unavailcarina GLORIA MD, DR AMADOR Duarte Admitting Unavailab abisai GLORIA MD, DR AMADOR Duarte Attending Unavailab abisai GLORIA MD, DR AMADOR Duarte Attending Unavailab le ESHENAUR PA-C, RAY W Attending Unavailable Mikel RILEY, Dr. Allen Rivera Primary Care Provider Cecilia RILEY, Dr. Samaniego Attending Provider Cecilia RILEY, Dr. Samaniego Referring Provider Mikel RILEY, Dr. Allen Rivera Attending Provider Mikel RILEY, Dr. Allen Rivera Primary Care Provider [phone] Cecilia RILEY, Dr. Samaniego Attending Provider Cecilia RILEY, Dr. Samaniego Referring Provider Mikel RILEY, Dr. Allen Rivera Primary Care Provider [phone] Cecilia RILEY, Dr. Samaniego Attending Provider Cecilia RILEY, Dr. Samaniego Referring Provider Mikel RILEY, Dr. Allen Rivera Primary Care Provider [phone] Cecilia RILEY, Dr. Samaniego Attending Provider Cecilia RILEY, Dr. Samaniego Referring Provider Mikel RILEY, Dr. Allen Rivera Primary Care Provider [phone] Cecilia RILEY, Dr. Samaniego Attending Provider Cecilia RILEY, Dr. Samaniego Referring Provider Mikel RILEY, Dr. Allen Rivera Primary Care Provider [phone] Cecilia RILEY, Dr. Samaniego Attending Provider Cecilia RILEY, Dr. Samaniego Referring Provider Mikel RILEY, Dr. Allen Rivera Primary Care Provider [phone] Cecilia RILEY, Dr. Samaniego Attending Provider Cecilia RILEY, Dr. Samaniego Referring Provider Mikel RILEY, Dr. Allen Rivera Primary Care Physician [phone] Cecilia RILEY, Dr. Samaniego Attending Physician Cecilia RILEY, Dr. Samaniego Referring Provider Danette Brooks Attending Unavailable Danette Brooks Referring Unavailable Allen Morin Chi Primary Care Unavailable Danette Brooks Attending Unavailable Vellanki, Danette Referring Unavailable Mikel, Allen Chi Primary Care Unavailable Vellanki, Danette Attending Unavailable Vellanki, Danette Referring Unavailable Mikel, Allen Chi Primary Care Unavailable Vellanki, Danette Attending Unavailable Vellanki, Danette Referring Unavailable Mikel, Allen Chi Primary Care Unavailable Vellanki, Danette Attending Unavailable Mikel, Allen Chi Primary Care Unavailable Vellanki, Danette Referring Unavailable Vellanki, Danette Attending Unavailable Mikel, Allen Chi Primary Care Unavailable Vellanki, Danette Referring Unavailable Mikel, Allen Chi Primary Care Unavailable Vellanki, Danette Attending Unavailable Vellanki, Danette Referring Unavailable Vellanki, Danette Attending Unavailable Vellanki, Danette Referring Unavailable Mikel, Allen Chi Primary Care Unavailable Vellanki, Danette Attending Unavailable Vellanki, Danette Referring Unavailable Mikel, Allen Chi Primary Care Unavailable Vellanki, Danette Attending Unavailable Vellanki, Danette Referring Unavailable Mikel, Allen Chi Primary Care Unavailable Vellanki, Danette Attending Unavailable Vellanki, Danette Referring Unavailable Mikel, Allen Chi Primary Care Unavailable Mikel, Allen Chi Attending Unavailable Mikel, Allen Chi Primary Care Unavailable Vellanki, Danette Attending Unavailable Vellanki, Danette Referring Unavailable Mikel, Allen Chi Primary Care Unavailable Mikel, Allen Chi Primary Care Unavailable Vellanki, Danette Attending Unavailable Vellanki, Danette Referring Unavailable Vellanki, Danette Attending Unavailable Vellanki, Danette Referring Unavailable Mikel, Allen Chi Primary Care Unavailable Allergies Allergy Classification Reported Allergen(s) Allergy Type Date of Onset Reaction(s) Facility NEGATED: Highlighted row has been ruled out! (1 source) allergy to substance [facility] Work Phone: NEGATED: Highlighted row has been ruled out! (1 source) drug allergy [facility] Work Phone: Medications Current Medications Medication Drug Class(es) Dates Sig (Normalized) Sig (Original) acetaminophen 1000 mg oral tablet (1 source) Start: 11-26-2023 take 1 tablet by mouth once daily Tylenol Dose : 1,000 mg = 2 tab(s), Oral, TID, not to exceed 3000 mg/day, 0 Refill(s) Start Date: 11/26/23 Status: Ordered aspirin 81 mg oral tablet (20 sources) Platelet Aggregation Inhibitor, Nonsteroidal Anti-inflammatory Drug Start: 11-26-2023 take 1 tablet by mouth twice daily at mealtime aspirin Dose : 81 mg = 1 tab(s), Oral, BIDM, Take 81 mg aspirin twice daily with food for 4 weeks postoperatively for DVT prophylaxis., 0 Refill(s) Start Date: 11/26/23 Status: Ordered End: 04-25-2011 take 1 tablet by mouth once daily ASPIRIN LOW DOSE, 81MG (Oral Tablet) 1 QD for 0 days Refills: 0 Ordered: 25-Apr-2011 Renita Richardson RN End : 25-Apr-2011 Inactive cholecalciferol 0.025 mg oral capsule (12 sources) Vitamin D Start: 01-05-2024 take 1 capsule by mouth once daily Cholecalciferol (Vitamin D3) 25 mcg (1,000 unit) capsule Active 25 ug PO DAILY January 05, 2024 12:00am Complies with drug therapy docusate sodium 50 mg / sennosides, fci 8.6 mg oral tablet (1 source) Start: 11-26-2023 End: 11-29-2023 take 1 tablet by mouth twice daily Senokot S 50 mg-8.6 mg oral tablet Dose = 2 tab(s), Oral, BID, Take until first bowel movement, then as needed, X 3 day(s), # 12 tab(s), 0 Refill(s), Pharmacy: [facility] #[id number], 160, cm, 11/25/23 16:05:00 EST, Height, kg, 11/25/23 16:05:00 EST, Dosing Weight Start Date: 11/26/23 Stop Date: 11/29/23 Status: Ordered famotidine 20 mg oral tablet (1 source) Histamine-2 Receptor Antagonist Start: 11-26-2023 Pepcid 20 mg oral tablet Dose : 20 mg = 1 tab(s), Oral, qDay, # 30 tab(s), 0 Refill(s), Pharmacy: [facility] #[id number], 160, cm, 11/25/23 16:05:00 EST, Height, kg, 11/25/23 16:05:00 EST, Dosing Weight Start Date: 11/26/23 Status: Ordered folic acid 1 mg oral tablet (20 sources) Start: 11-04-2023 folic acid 1 mg oral tablet Dose : 2 mg = 2 tab(s), Oral, qDay, # 30 tab(s), 0 Refill(s) Start Date: 11/04/23 Status: Ordered Start: 03-31-2008 [facility] FOLIC ACID, 1MG (Oral Tablet) 1 Tablet QD for 0 days Quantity: 90 {Tablet} Refills: 3 Ordered: 31-Mar-2008 Renita Richardson RN Start : 31-Mar-2008 Active Lactobacillus Combination No.4 (Probiotic) 1 EACH capsule (20 sources) Start: 04-01-2014 take 1 capsule by mouth once daily Lactobacillus Combination No.4 (Probiotic) 1 EACH capsule Active 1 EACH PO DAILY April 01, 2014 12:47pm Start: 04-01-2014 take 1 capsule by [facility] once daily Lactobacillus Combination No.4 (Probiotic) 1 EACH capsule Active 1 NMA PO DAILY April 01, 2014 12:00am Complies with drug therapy Start: 04-01-2014 take 1 capsule by [facility] once daily Lactobacillus Combination No.4 (Probiotic) 1 EACH capsule Active 1 NMA PO DAILY April 01, 2014 12:00am Start: 04-01-2014 take 1 capsule by [facility] once daily Lactobacillus Combination No.4 (Probiotic) 1 EACH capsule Active 1 EACH PO DAILY March 31, 2014 11:00pm Start: 04-01-2014 take 1 capsule by [facility] once daily Lactobacillus Combination No.4 (Probiotic) 1 EACH capsule Active 1 EACH PO DAILY April 01, 2014 12:00am methotrexate 2.5 mg oral tablet (20 sources) Folate Analog Metabolic Inhibitor Start: 07-23-2013 take 1 tablet by mouth every week Methotrexate Sodium 2.5 MG tablet Active 2.5 mg PO EVERY WEEK July 23, 2013 12:00am Complies with drug therapy take 3 tablets by mouth every we ek METHOTREXATE, 2.5MG (PO Tablet) 3 Q week for 0 days Refills: 0 Ordered: 25-Apr-2011 Renita Richardson RN Active oxyCODONE hydrochloride 5 mg oral tablet (1 source) Opioid Agonist Start: 11-26-2023 End: 12-03-2023 take 1-2 tablets by mouth every four hours as needed for pain oxyCODONE 5 mg oral tablet ( IMMEDIATE release ) See Instructions, PRN as needed for pain, 1-2 tab(s) Oral q4h, # 42 tab(s), 0 Refill(s), 12/03/23 8:10:00 AM EST, Pharmacy: [facility] #[id number], Status post total hip replacement, right, 160, cm, 11/25/23 16:05:00 EST, Height, 59.1, kg, 11/25/23 16:05:00 EST, Dosing Weight Start Date: 11/26/23 Stop Date: 12/03/23 Status: Ordered ramipril 10 mg oral capsule (20 sources) Angiotensin Converting Enzyme Inhibitor Start: 10-11-2015 take 1 capsule by mouth twice daily Ramipril (Altace) 10 MG capsule Active 10 mg PO TWICE A DAY October 11, 2015 1:00am Complies with drug therapy Comment on above: Mail order. Vitamin D3 (1 source) Start: 11-25-2023 Vitamin D3 Dose : 25 mcg = 1 tab(s), Oral, Daily, 0 Refill(s) Start Date: 11/25/23 Status: Ordered Completed/Discontinued Medications Medication Drug Class(es) Dates Sig (Normalized) Sig (Original) abatacept 250 mg injection (20 sources) Selective T Cell Costimulation Modulator Start: 03-29-2013 End: 03-30-2013 ORENCIA, 250MG (Intravenous Solution Reconstituted) 1 For Solution q 4 weeks for 1 days Refills: 0 Ordered: 29-Mar-2013 Sade Matthews DO, DO, Kathleen Start : 29-Mar-2013 End : 30-Mar-2013 Inactive 0.8 ml adalimumab 50 mg/ml prefilled syringe (20 sources) Tumor Necrosis Factor Levy End: 03-31-2008 HUMIRA, 40MG/0.8ML (Subcutaneous Kit) Not sure Not sure for 0 days Refills: 0 Ordered: 31-Mar-2008 Renita Richardson RN End : 31-Mar-2008 Inactive End: 03-31-2008 HUMIRA, 40MG/0.8ML (Subcutan eous Kit) Not sure Not sure for 0 days Refills: 0 Ordered: 31-Mar-2008 Renita Richardson RN End : 31-Mar-2008 Inactive End: 03-31-2008 HUMIRA, 40MG/0.8ML (Subcutan eous Kit) Not sure Not sure for 0 days Refills: 0 Ordered: 31-Mar-2008 Renita Richardson LPN End : 31-Mar-2008 Inactive alendronic acid 70 mg oral tablet (20 sources) Bisphosphonate Start: 03-29-2013 End: 03-29-2013 take 1 tablet by mouth every week FOSAMAX, 70MG (Oral Tablet) 1 Tablet Q Week for 0 days Quantity: 12 {Tablet} Refills: 3 Ordered: 29-Mar-2013 Sade Matthews DO, DO, Kathleen Start : 29-Mar-2013 End : 29-Mar-2013 Discontinued Comments: pt has been on for years Comment on above: pt has been on for y ears amLODIPine 5 mg oral tablet (12 sources) Dihydropyridine Calcium Channel Levy Start: 10-25-2020 End: 03-30-2021 take 1 tablet by mouth once daily Norvasc 5 MG Oral Tablet 1 (one) Tablet qd for 0 days Quantity: 90 {Tablet} Refills: 3 Ordered: 30-Mar-2021 Start : 25-Oct-2020 End : 30-Mar-2021 Discontinued Comments: Mail order. Comment on above: Mail order. ascorbic acid 500 mg oral tablet (20 sources) Vitamin C End: 05-26-2009 take 1 tablet by mouth once daily VITAMIN C, 500MG (Oral Tablet) 1 QD for 0 days Refills: 0 Ordered: 26-May-2009 Renita Richardson RN End : 26-May-2009 Inactive atorvastatin 10 mg oral tablet (20 sources) HMG-CoA Reductase Inhibitor Start: 10-03-2016 End: 06-28-2022 take 1 tablet by mouth once daily Atorvastatin Calcium 10 MG Oral Tablet 1 (one) Tablet qd for 30 days Quantity: 30 {Tablet} Refills: 0 Ordered: 29-May-2022 Sade Matthews DO, DO, Kathleen Start : 29-May-2022 End : 28-Jun-2022 Inactive Comments: needs apt for more refills Start: 09-15-2006 End: 03-31-2008 take 0.5 tablet by mouth once daily LIPITOR, 10MG (Oral Tablet) 1/2 Tablet QD for 0 days Refills: 0 Ordered: 31-Mar-2008 Sade Matthews DO, DO, Kathleen Start : 15-Sep-2006 End : 31-Mar-2008 Discontinued Comment on above: Mail order. needs apt for more r efills budesonide 3 mg delayed release oral capsule (20 sources) Corticosteroid Start: 1 End: 1 take 1 capsule by mouth every twenty-four hours ENTOCORT EC, 3MG (Oral Capsule Extended Release 24 Hour) 3 (three) Tablet(s) qd for 30 days Refills: 0 Ordered: 07-Aug-2011 Sade Matthews DO, DO, Kathleen Start : 25-Apr-2011 End : 25-May-2011 Inactive Start: 04-25-2011 End: 05-25-2011 take 1 capsule by mouth every twenty-four hours ENTOCORT EC, 3MG (Oral Capsule Extended Release 24 Hour) 3 (three) Tablet(s) qd for 30 days Refills: 0 Ordered: 07-Aug-2011 Sade Matthews DO, DO, Kathleen Start : 25-Apr-2011 End : 25-May-2011 Inactive Start: 04-25-2011 End: 05-25-2011 take 3 tablets by mouth once daily ENTOCORT EC, 3MG (O ral Capsule Extended Release 24 Hour) 3 (three) Tablet(s) qd for 30 days Refills: 0 Ordered: 07-Aug-2011 Sdae Matthews DO, DO, Kathleen Start : 25-Apr-2011 End : 25-May-2011 Inactive calcium carbonate 1250 mg / cholecalciferol 200 unt oral tablet (20 sources) Vitamin D End: 07-17-2018 take 1 tablet by mouth twice daily Oscal 500/200 D-3 500-200 MG-UNIT Oral Tablet 1 BID for 0 days Refills: 0 Ordered: 17-Jul-2018 Renita Richardson RN End : 17-Jul-2018 Inactive cloNIDine hydrochloride 0.1 mg oral tablet (20 sources) Central alpha-2 Adrenergic Agonist Start: 09-15-2006 End: 10-03-2006 take 1 tablet by mouth once daily CLONIDINE HCL, 0.1MG (Oral Tablet) 1 Tablet QD for 0 days Refills: 0 Ordered: 03-Oct-2006 Sade Matthews DO, DO, Kathleen Start : 15-Sep-2006 End : 03-Oct-2006 Discontinued Comments: SAW NO DIFFERENCE Comment on above: SAW NO DIFFERENCE doxycycline hyclate 100 mg oral tablet (20 sources) Tetracycline-clas s Drug Start: 06-07-2016 End: 06-04-2017 Doxycycline Hyclate 100 MG Oral Tablet 1 (one) Tablet bid for 10days then qd for 30 days then qd prn for 0 days Quantity: 94 {Tablet} Refills: 2 Ordered: 04-Jun-2017 Renita Richardson RN Start : 07-Jun-2016 End : 04-Jun-2017 Inactive Comments: Mail order. Comment on above: Mail order. estrogens, conjugated (fci) 0.625 mg/ml vaginal cream (20 sources) Estrogen Start: 09-15-2006 End: 04-25-2011 PREMARIN, 0.625MG/GM (Vaginal Cream) Not sure Cream Not sure for 0 days Refills: 0 Ordered: 25-Apr-2011 Renita Richardson RN Start : 15-Sep-2006 End : 25-Apr-2011 Inactive hydrALAZINE (20 sources) Arteriolar Vasodilator Start: 11-26-2023 End: 11-26-2023 take 1 tablet by mouth in the morning hydrALAZINE Start: 11/26/23 9:00:00 AM EST, Dose = 25 mg, = 1 tab(s), Oral, Hold if SBP (mmHg) Start Date: 11/26/23 Stop Date: 11/26/23 Status: Completed Start: 04-12-2021 take 1 tablet by melina th twice daily Hydralazine 25 mg Tablet Active 25 mg PO TWICE A DAY April 12, 2021 12:00am Complies with drug therapy Start: 04-05-2021 take 1 tablet by melina th once daily hydrALAZINE HCl 25 MG Oral Tablet 1 (one) Tablet qd for 0 days Quantity: 30 {Tablet} Refills: 2 Ordered: 05-Apr-2021 Sade Matthews DO, DO, Kathleen Start : 05-Apr-2021 Active hydroCHLOROthiazide 25 mg oral tablet (20 sources) Thiazide Diuretic Start: 10-03-2006 End: 10-03-2006 take 1 tablet by mouth once daily HYDROCHLOROTHIAZIDE, 25MG (Oral Tablet) 1 (one) Tablet Daily for 0 days Refills: 0 Ordered: 03-Oct-2006 Sade Matthews DO, DO, Kathleen Start : 03-Oct-2006 End : 03-Oct-2006 Discontinued Comments: SAW NO DIFFERENCE IN BP Comment on above: SAW NO DIFFERENCE IN BP hydrocortisone acetate 25 mg rectal suppository (20 sources) Corticosteroid Start: 09-15-2006 End: 05-26-2009 ANUCORT-HC, 25MG (Rectal Suppository) 1 Suppository QD for 0 days Refills: 0 Ordered: 15-Sep-2006 Renita Richardson RN Start : 15-Sep-2006 End : 26-May-2009 Inactive inFLIXimab 100 mg injection (20 sources) Tumor Necrosis Factor Levy End: 05-26-2009 REMICADE, 100MG (Intravenous Solution Reconstituted) EVERY 5 WEEKS for 0 days Refills: 0 Ordered: 26-May-2009 Renita Rihcardson RN End : 26-May-2009 Inactive losartan potassium 50 mg oral tablet (12 sources) Angiotensin 2 Receptor Levy Start: 04-05-2021 End: 04-05-2021 take 2 tablets by mouth once daily Losartan Potassium 50 MG Oral Tablet 2 (two) Tablet daily for 90 days Quantity: 180 {Tablet} Refills: 3 Ordered: 05-Apr-2021 Sade Matthews DO, DO, Kathleen Start : 05-Apr-2021 End : 05-Apr-2021 Discontinued Comments: Mail order. Start: 03-30-2021 take 2 tablets by mo [facility] once daily Losartan Potassium 50 MG Oral Tablet 2 (two) Tablet daily for 90 days Quantity: 180 {Tablet} Refills: 3 Ordered: 30-Mar-2021 Sade Matthews DO, DO, Kathleen Start : 30-Mar-2021 Active Comments: Mail order. Start: 03-07-2021 [facility] Losartan Potassium 50 MG Oral Tablet 1 (one) Tablet daily for 30 days Quantity: 30 {Tablet} Refills: 1 Ordered: 07-Mar-2021 Yuliana Ritchie LPN Start : 07-Mar-2021 Active Comment on above: Mail order. 24 hr metoprolol succinate 100 mg extended release oral tablet (20 sources) beta-Adrenergic Levy Start: 11-26-2023 End: 11-26-2023 metoprolol succinate 100 mg oral TABLET extended release Start: 11/26/23 8:00:00 AM EST, Dose = 100 mg, = 2 tab(s), Oral, 0, 11/25/23 17:52:00 EST Start Date: 11/26/23 Stop Date: 11/26/23 Status: Completed Start: 11-04-2023 Metoprolol Suc cinate ER 100 mg oral TABLET extended release Dose : 100 mg = 1 tab(s), Oral, qDay, # 30 tab(s), 0 Refill(s) Start Date: 11/04/23 Status: Ordered Start: 03-30-2021 take 1 tablet by melina th once daily Toprol XL 50 MG Oral Tablet Extended Release 24 Hour 1 (one) Tablet qd for 0 days Quantity: 90 {Tablet} Refills: 3 Ordered: 30-Mar-2021 Sade Matthews DO, DO, Kathleen Start : 30-Mar-2021 Active Start: 10-25-2020 take 1 tablet by melina th once daily Toprol XL 50 MG Oral Tablet Extended Release 24 Hour 1 (one) Tablet qd for 0 days Quantity: 90 {Tablet} Refills: 3 Ordered: 25-Oct-2020 Sade Matthews DO, DO, Kathleen Start : 25-Oct-2020 Active Comments: Mail order. Start: 07-23-2013 End: 03-22-2022 take 1 tablet by mouth once daily Metoprolol Succinate 100 mg tablet extended release 24 hr Active 100 mg PO DAILY March 22, 2022 11:54am Complies with drug therapy Comment on above: Mail order. metroNIDAZOLE 0.01 mg/mg topical gel (20 sources) Nitroimidazole Antimicrobial Start: 08-04-2018 End: 08-20-2019 metroNIDAZOLE 1 % External Gel apply topically Application apply to facial cheeks bid for 0 days Quantity: 15 {Gram} Refills: 3 Ordered: 20-Aug-2019 Renita Richardson RN Start : 04-Aug-2018 End : 20-Aug-2019 Inactive multivitamin (20 sources) MULTIVITAMIN (PO Liquid) for 0 days Refills: 0 Ordered: 30-Mar-2021 Jerri Chen LPN Active MULTIVITAMIN (PO Liquid) for 0 days Refills: 0 Ordered: 18-Oct-2020 Jerri Chen LPN Active MULTIVITAMIN (PO Liquid) for 0 days Refills: 0 Ordered: 20-Aug-2019 Renita Richardson RN Active MULTIVITAMIN (PO Liquid) for 0 days Refills: 0 Ordered: 20-Aug-2019 Renita Richardson LPN Active MULTIVITAMIN (PO Liquid) for 0 days Refills: 0 Ordered: 17-Jul-2018 Renita Richardson LPN Active niacin 500 mg extended release oral tablet (20 sources) Nicotinic Acid Start: 07-10-2016 End: 06-04-2017 take 1 tablet by mouth once daily Niacin ER 500 MG Oral Tablet Extended Release 1 (one) Tablet ER qd for 30 days Quantity: 30 {Tablet} Refills: 5 Ordered: 04-Jun-2017 Renita Richardson RN Start : 10-Jul-2016 End : 04-Jun-2017 Inactive Start: 04-21-2014 End: 10-27-2014 take 1 tablet by mouth once daily at bedtime NIASPAN, 500MG (Oral Tablet Extended Release) 1 (one) Tablet ER QHS / HS for 0 days Quantity: 90 {Tablet_ER} Refills: 3 Ordered: 27-Oct-2014 Renita Richardson RN Start : 21-Apr-2014 End : 27-Oct-2014 Inactive simvastatin 10 mg oral tablet (20 sources) HMG-CoA Reductase Inhibitor Start: 07-10-2016 End: 06-04-2017 take 1 tablet by mouth once daily Simvastatin 10 MG Oral Tablet 1 (one) Tablet daily for 30 days Quantity: 30 {Tablet} Refills: 5 Ordered: 04-Jun-2017 Renita Richardson RN Start : 10-Jul-2016 End : 04-Jun-2017 Inactive vitamin e 90 mg oral capsule (20 sources) End: 05-26-2009 take 2 capsules by mouth once daily VITAMIN E, 200UNIT (Oral Capsule) 2 QD for 0 days Refills: 0 Ordered: 26-May-2009 Renita Richardson RN End : 26-May-2009 Inactive End: 05-26-2009 take 2 capsules by mouth once daily VITAMIN E, 200UNIT (Oral Capsule) 2 QD for 0 days Refills: 0 Ordered: 26-May-2009 Renita Richardson RN End : 26-May-2009 Inactive Problems Active Problems Problem Classification Problem Date Documented Date Episodic/Chronic Administrative/social admission (2 sources) Medical examinations/reports status; Translations: [Encounter for Medicare annual wellness exam] Resolved: 03-29-2009 07-17-2018 Episodic Disorders of lipid metabolism (20 sources) Hypercholesterolemia; Translations: [Hypercholesterolemia ] 07-17-2018 Chronic Essential hypertension (20 sources) Benign essential hypertension; Translations: [Hypertensive disorder] Onset: 11-25-2023 07-17-2018 Chronic Heart valve disorders (20 sources) Mitral valve prolapse; Translations: [Mitral valve prolapse] 07-17-2018 Chronic Comment on above: stable Immunizations and screening for infectious disease (20 sources) Need for prophylactic vaccination and inoculation against influenza; Translations: [Needs influenza immunization] 10-25-2020 Episodic Nutritional deficiencies (20 sources) Vitamin D deficiency, unspecified; Translations: [Vitamin D deficiency] 07-17-2018 Chronic Osteoarthritis (1 source) Osteoarthritis; Translations: [Unspecified osteoarthritis, unspecified site] Onset: 11-25-2023 Chronic Osteoporosis (20 sources) Osteoporosis; Translations: [Osteoporosis] 07-17-2018 Chronic Comment on above: managed by dr shahrzad james Other connective tissue disease (1 source) Hip joint prosthesis present; Translations: [Presence of right artificial hip joint] Onset: 11-26-2023 Chronic Other inflammatory condition of skin (20 sources) Acne rosacea, papular type; Translations: [Acne rosacea, papular type] 07-17-2018 Chronic Other inflammatory condition of skin (20 sources) Rosacea; Translations: [Rosacea] 06-07-2016 Chronic Comment on above: Acne Other nutritional; endocrine; and metabolic disorders (20 sources) Hyperproteinemia; Translations: [Elevated blood protein] 07-17-2018 Chronic Regional enteritis and ulcerative colitis (20 sources) Crohn's disease, unspecified, without complications; Translations: [Crohn's disease] 07-17-2018 Chronic Residual codes; unclassified (20 sources) Postmenopausal state; Translations: [Postmenopausal (Renamed from Postmenopausal status)] 07-17-2018 Episodic Comment on above: aug 2018 Residual codes; unclassified (13 sources) Past history of procedure; Translations: [Colonoscopy] 10-18-2020 Episodic Comment on above: 08-20-07 Residual codes; unclassified (20 sources) Body mass index 20-24 - normal; Translations: [BMI 22.0-22.9, adult] 11-27-2020 Episodic Residual codes; unclassified (15 sources) Influenza vaccination declined; Translations: [Influenza vaccination declined (Renamed from Refused influenza vaccine)] 10-25-2020 Episodic Residual codes; unclassified (20 sources) Non-smoker; Translations: [Non-smoker] 10-25-2020 Episodic Rheumatoid arthritis and related disease (20 sources) Rheumatoid arthritis; Translations: [Rheumatoid arthritis] Onset: 11-25-2023 07-17-2018 Chronic Spondylosis; intervertebral disc disorders; other back problems (20 sources) Cervical radiculopathy; Translations: [Cervical radiculopathy] 07-17-2018 Chronic Spondylosis; intervertebral disc disorders; other back problems (20 sources) Cervical radiculopathy; Translations: [Cervical radiculopathy] 10-25-2020 Episodic Syncope (20 sources) Syncope; Translations: [Syncope and collapse] 11-27-2021 Episodic Unclassified (20 sources) Breast neoplasm screening status; Translations: [Encounter for screening for malignant neoplasm of cervix] Resolved: 03-29-2013 07-17-2018 Episodic Comment on above: cologard positive so go colonoscopy 2017 and normal Unclassified (14 sources) Needs influenza immunization; Translations: [Postmenopausal state] 07-17-2018 Episodic Unclassified (20 sources) Unclassified (20 sources) Acne rosacea, papular type Unclassified (20 sources) DEFICIENCY, VITAMIN D NOS (268.9) Unclassified (20 sources) Non-smoker; Translations: [Non-smoker] 07-17-2018 Unclassified (20 sources) BMI 22.0-22.9, adult Past or Other Problems Problem Classification Problem Date Documented Date Episodic/Chronic Unclassified (20 sources) Annual Medicare Physical (V70.0) Unclassified (20 sources) Breast cancer screening Unclassified (20 sources) Elevated blood protein Unclassified (20 sources) Unspecified Diagnosis 07-17-2018 Unclassified (3 sources) Screening status; Translations: [Screening for colon cancer] 08-11-2018 Unclassified (20 sources) Encounter for Medicare annual wellness exam Unclassified (20 sources) Encounter for screening mammogram for breast cancer (Renamed from Encounter for screening mammogram for malignant neoplasm of breast) Unclassified (20 sources) Influenza vaccination declined (Renamed from Refused influenza vaccine); Translations: [Influenza vaccination declined] 07-17-2018 Unclassified (20 sources) Colon cancer screening (Renamed from Encounter for screening for malignant neoplasm of colon) Unclassified (12 sources) Hysterectomy, Total; Translations: [Hysterectomy, Total] 07-17-2018 Comment on above: Secondary to prolaps ed bladder Unclassified (20 sources) Well Woman Exam , Medicare (V76.2) Unclassified (20 sources) Postmenopausal (Renamed from Postmenopausal status) Unclassified (20 sources) Abnormal blood chemistry (790.6) Unclassified (20 sources) Well Woman Exam (V72.31) (Pap,Mammo,Routine Female) Unclassified (20 sources) Patient encounter status; Translations: [Colon cancer screening (Renamed from Encounter for screening for malignant neoplasm of colon)] Resolved: 03-29-2009 07-17-2018 Comment on above: cologard positive 18 so go colonoscopy 2018 and normal Unclassified (11 sources) Influenza vaccination declined; Translations: [Influenza vaccination declined (Renamed from Refused influenza vaccine)] 07-17-2018 Unclassified (11 sources) Non-smoker; Translations: [Non-smoker] 07-17-2018 Unclassified (11 sources) Cancer cervix screening status; Translations: [Screening for malignant neoplasm of cervix] Resolved: 03-29-2013 08-29-2015 Unclassified (20 sources) Screening for colon cancer Unclassified (11 sources) Body mass index 20-24 - normal; Translations: [BMI 22.0-22.9, adult] 07-17-2018 Unclassified (19 sources) Encounter for annual general medical examination with abnormal findings in adult Unclassified (12 sources) Hysterectomy, Total; Translations: [Hysterectomy, Total] 10-25-2020 Comment on above: Secondary to prolaps ed bladder Unclassified (13 sources) BMI 21.0-21.9, adult Results Test Name Value Interpretation Reference Range Facility Absolute lymphocyte countOrd ered By: Danette Brooks on 05-13-2025 Lymphocytes Auto (Unsp spec) [#/Vol] 2.05 10*3/uL 0.83-4.51 [facility] Absolute neutrophil countOrd ered By: Danette Brooks on 05-13-2025 Neutrophils (Bld) [#/Vol] 7.0 10*3/uL 2.0-7.7 [facility] Anion gap in Serum or Plasma Ordered By: Danette Brooks on 05-13-2025 Anion gap [Moles/Vol] 10 mmol/L 5-15 [facility] Automated lymphocyte count a s percentage of total leukocytesOrdered By: Danette Brooks on 05-13-2025 Lymphocytes/100 WBC Auto (Unsp spec) 20.3 % 19-41 [facility] BUN/creatinine ratioOrdered By: Danette Brooks on 05-13-2025 Urea nitrogen/Creatinine [Mass ratio] 20.2 mg/mg High 10-20 [facility] Basophil percentageOrdered B y: Danette Tylerella on 05-13-2025 Basophils/100 WBC (Bld) 0.6 % 0-1 [facility] Bilirubin, totalOrdered By: Danette Brooks on 05-13-2025 Bilirubin [Mass/Vol] 0.27 mg/dL 0.00-1.30 [facility] CBC W/Diff, Automatedon Absolute Lymph 2.05 X10 3/uL Normal 0.83-4.51 [facility] Comment on above: Performed By: #### L 500.4050, L100.0100 #### [facility] [address] [place], [address] Absolute Neut 7.0 X10 3/uL Normal 2.0-7.7 [facility] Comment on above: Performed By: #### L [id number], L100.0100 #### [facility] [address] [place], [address] Basophils/100 WBC (Bld) 0.6 % Normal 0-1 [facility] Comment on above: Performed By: #### L 500.4050, L100.0100 #### [facility] [address] [place], [address] Eosinophils/100 WBC (Bld) 1.5 % Normal 0-5 [facility] Comment on above: Performed By: #### L 500.4050, L100.0100 #### [facility] [address] [place], [address] Erythrocyte distribution width (RBC) [Ratio] 14.3 % Normal 11.6-14.6 [facility] Comment on above: Performed By: #### L 500.4050, L100.0100 #### [facility] [address] [place], [address] Hematocrit (Bld) [Volume fraction] 35.3 % Low 37-47 [facility] Comment on above: Performed By: #### L 500.4050, L100.0100 #### [facility] [address] [place], [address] Hemoglobin (Bld) [Mass/Vol] 11.8 g/dL Low 12.0-15.0 [facility] Comment on above: Performed By: #### L 500.4050, L100.0100 #### [facility] [address] [place], [address] IG% 0.300 Normal 0.0-0.9 [facility] Comment on above: Result Comment: IG% - Immature Granulocytes (promyelocytes, myelocytes and metamyelocytes) > 1% indicates that a LEFT SHIFT is Present. Performed By: #### L 500.4050, L100.0100 #### [facility] [address] [place], [address] Lymphocytes/100 WBC (Bld) 20.3 % Normal 19-41 [facility] Comment on above: Performed By: #### L 500.4050, L100.0100 #### [facility] [address] [place], [address] MCH (RBC) [Entitic mass] 32.5 pg High 27.0-32.0 [facility] Comment on above: Performed By: #### L 500.4050, L100.0100 #### [facility] [address] [place], [address] MCHC (RBC) [Mass/Vol] 33.4 g/dL Normal 32-36 [facility] Comment on above: Performed By: #### L 500.4050, L100.0100 #### [facility] [address] [place], [address] MCV (RBC) [Entitic vol] 97.2 fL Normal 81-99 [facility] Comment on above: Performed By: #### L 500.4050, L100.0100 #### [facility] [address] [place], [address] Monocytes/100 WBC (Bld) 7.8 % Normal 0-10 [facility] Comment on above: Performed By: #### L 500.4050, L100.0100 #### [facility] [address] [place], [address] Neutrophils/100 WBC (Bld) 69.5 % Normal 47-70 [facility] Comment on above: Performed By: #### L 500.4050, L100.0100 #### [facility] [address] [place], [address] Nucleated RBC (Bld) [#/Vol] 0 10*3/uL Normal 0-5 [facility] Comment on above: Performed By: #### L 500.4050, L100.0100 #### [facility] [address] [place], [address] Platelet mean volume (Bld) [Entitic vol] 9.3 fL Normal 6.2-12.0 [facility] Comment on above: Performed By: #### L 500.4050, L100.0100 #### [facility] [address] [place], [address] Platelets (Bld) [#/Vol] 318 10*3/uL Normal 150-450 [facility] Comment on above: Performed By: #### L 500.4050, L100.0100 #### [facility] [address] [place], [address] RBC (Bld) [#/Vol] 3.63 10*6/uL Low 4.2-5.4 [facility] Comment on above: Performed By: #### L 500.4050, L100.0100 #### [facility] [address] [place], [address] RDW SD 50.3 fl High 35.1-43.9 [facility] Comment on above: Performed By: #### L 500.4050, L100.0100 #### [facility] [address] [place], [address] WBC (Bld) [#/Vol] 10.1 10*3/uL Normal 4.4-11.0 [facility] Comment on above: Performed By: #### L 500.4050, L100.0100 #### [facility] [address] [place], [address] Carbon dioxide, total [Moles /volume] in Central venous bloodOrdered By: Danette Brooks on 05-13-2025 CO2 [Moles/Vol] 23.9 mmol/L 21.0-32.0 [facility] Chloride assayOrdered By: Ness Brooks on 05-13-2025 Chloride [Moles/Vol] 97 mmol/L Low 98-108 [facility] Comprehensive Metabolic Prof ilon 05-13-2025 Albumin [Mass/Vol] 3.8 g/dL Normal 3.4-4.8 [facility] Comment on above: Performed By: #### L 500.4050, L100.0100 #### [facility] [address] [place], [address] Albumin/Globulin [Mass ratio] 1.6 {ratio} Normal 0.9-2.4 [facility] Comment on above: Performed By: #### L 500.4050, L100.0100 #### [facility] [address] [place], [address] ALK PHOS 72 U/L Normal 35-104 [facility] Comment on above: Performed By: #### L 500.4050, L100.0100 #### [facility] [address] [place], [address] ALT [Catalytic activity/Vol] 11 U/L Normal <=34 [facility] Comment on above: Performed By: #### L 500.4050, L100.0100 #### [facility] [address] [place], [address] AST [Catalytic activity/Vol] 22 U/L Normal <=31 [facility] Comment on above: Performed By: #### L 500.4050, L100.0100 #### [facility] [address] [place], [address] Bilirubin [Mass/Vol] 0.27 mg/dL Normal 0.00-1.30 [facility] Comment on above: Performed By: #### L 500.4050, L100.0100 #### [facility] [address] [place], [address] BUN/CRE 20.2 RATIO High 10-20 [facility] Comment on above: Performed By: #### L 500.4050, L100.0100 #### [facility] [address] [place], [address] Calcium [Mass/Vol] 9.0 mg/dL Normal 7.6-11.0 [facility] Comment on above: Performed By: #### L 500.4050, L100.0100 #### [facility] [address] [place], [address] Chloride [Moles/Vol] 97 mmol/L Low 98-108 [facility] Comment on above: Performed By: #### L 500.4050, L100.0100 #### [facility] [address] [place], [address] CO2 [Moles/Vol] 23.9 mmol/L Normal 21.0-32.0 [facility] Comment on above: Performed By: #### L 500.4050, L100.0100 #### [facility] [address] [place], [address] Creatinine [Mass/Vol] 0.65 mg/dL Low 0.70-1.20 [facility] Comment on above: Performed By: #### L 500.4050, L100.0100 #### [facility] [address] [place], [address] GAP 10 Normal 5-15 [facility] Comment on above: Performed By: #### L 500.4050, L100.0100 #### [facility] [address] [place], [address] GFR/1.73 sq M.predicted among non-blacks MDRD (S/P/Bld) [Vol rate/Area] 87 mL/min/{1.73_m2} Normal >60 [facility] Comment on above: Result Comment: mL/m in/1.73m2 CKD-EPI Creatinine Equation (2020) Performed By: #### L 500.4050, L100.0100 #### [facility] [address] [place], [address] Globulin (S) [Mass/Vol] 2.3 g/dL Normal 2.2-4.2 [facility] Comment on above: Performed By: #### L 500.4050, L100.0100 #### [facility] [address] [place], [address] Glucose [Mass/Vol] 97 mg/dL Normal 70-99 [facility] Comment on above: Performed By: #### L 500.4050, L100.0100 #### [facility] [address] [place], [address] Potassium [Moles/Vol] 3.9 mmol/L Normal 3.3-5.1 [facility] Comment on above: Performed By: #### L 500.4050, L100.0100 #### [facility] [address] [place], [address] Sodium [Moles/Vol] 131 mmol/L Low 133-145 [facility] Comment on above: Performed By: #### L 500.4050, L100.0100 #### [facility] [address] [place], [address] T PROT 6.1 g/dL Normal 5.9-8.4 [facility] Comment on above: Performed By: #### L 500.4050, L100.0100 #### [facility] [address] [place], [address] Urea nitrogen [Mass/Vol] 13 mg/dL Normal 4-19 [facility] Comment on above: Performed By: #### L 500.4050, L100.0100 #### [facility] [address] [place], [address] Eosinophil percentageOrdered By: Danette Brooks on 05-13-2025 Eosinophils/100 WBC (Bld) 1.5 % 0-5 [facility] Erythrocyte distribution wid th ratioOrdered By: Danette Brooks on 05-13-2025 Erythrocyte distribution width (RBC) [Ratio] 14.3 % 11.6-14.6 [facility] Erythrocyte distribution wid th standard deviationOrdered By: Danette Brooks on 05-13-2025 Erythrocyte distribution width (RBC) [Ratio] 50.3 fl High 35.1-43.9 [facility] Glomerular filtration rate ( GFR) estimation/1.73 sq m using serum, plasma, or whole bOrdered By: Danette Brooks on 05-13-2025 GFR/1.73 sq M.predicted among non-blacks MDRD (S/P/Bld) [Vol rate/Area] 87 mL/min/{1.73_m2} >60 [facility] Comment on above: mL/min/1.73m2 CKD-EP I Creatinine Equation (2020) Hematocrit Auto (Bld) [Volum e fraction]Ordered By: Danette Brooks on 05-13-2025 Hematocrit (Bld) [Volume fraction] 35.3 % Low 37-47 [facility] Hemoglobin measurementOrdere d By: Danette Brooks on 05-13-2025 Hemoglobin (Bld) [Mass/Vol] 11.8 g/dL Low 12.0-15.0 [facility] Immature granulocytes/100 WB C Auto (Bld)Ordered By: Danette Brooks on 05-13-2025 Immature granulocytes/100 WBC (Bld) 0.300 % 0.0-0.9 [facility] Comment on above: IG% - Immature Granu locytes (promyelocytes, myelocytes and metamyelocytes) > 1% indicates that a LEFT SHIFT is Present. Laboratory - Chemistry and C hemistry - challengeOrdered By: Danette Brooks on 05-13-2025 AST [Catalytic activity/Vol] 22 U/L <32 [facility] MCV (mean corpuscular volume ) determinationOrdered By: Danette Brooks on 05-13-2025 MCV (RBC) [Entitic vol] 97.2 fL 81-99 [facility] Mean corpuscular hemoglobin (MCH) determinationOrdered By: Danette Brooks on 05-13-2025 MCH (RBC) [Entitic mass] 32.5 pg High 27.0-32.0 [facility] Mean corpuscular hemoglobin concentration (MCHC) determinationOrdered By: Danette Brooks on 05-13-2025 MCHC (RBC) [Mass/Vol] 33.4 g/dL 32-36 [facility] Mean platelet volume determi nationOrdered By: Danette Brooks on 05-13-2025 Platelet mean volume (Bld) [Entitic vol] 9.3 fL 6.2-12.0 [facility] Monocyte percentageOrdered B y: Danette Brooks on 05-13-2025 Monocytes/100 WBC (Bld) 7.8 % 0-10 [facility] Neutrophil percentageOrdered By: Danette Brooks on 05-13-2025 Neutrophils/100 WBC (Bld) 69.5 % 47-70 [facility] Nucleated red blood cell per centageOrdered By: Danette Brooks on 05-13-2025 Nucleated RBC/100 WBC (Bld) [Ratio] 0 % 0-5 [facility] Platelet countOrdered By: Ness Brooks on 05-13-2025 Platelets (Bld) [#/Vol] 318 10*3/uL 150-450 [facility] Potassium measurement (mass/ volume)Ordered By: Danette Brooks on 05-13-2025 Potassium (Unsp spec) [Mass/Vol] 3.9 mmol/L 3.3-5.1 [facility] RBC Auto (Bld) [#/Vol]Ordere d By: Danette Brooks on 05-13-2025 RBC (Bld) [#/Vol] 3.63 10*6/uL Low 4.2-5.4 [facility] Serum creatinine measurement (mass/volume)Ordered By: Danette Brooks on 05-13-2025 Creatinine [Mass/Vol] 0.65 mg/dL Low 0.70-1.20 [facility] Serum globulin measurementOr dered By: Danette Brooks on 05-13-2025 Globulin (S) [Mass/Vol] 2.3 g/dL 2.2-4.2 [facility] Serum glucose measurement (m ass/volume)Ordered By: Danette Brooks on 05-13-2025 Glucose [Mass/Vol] 97 mg/dL 70-99 [facility] Serum or plasma alanine jones otransferase (ALT) measurementOrdered By: Danette Brooks on 05-13-2025 ALT [Catalytic activity/Vol] 11 U/L <35 [facility] Serum or plasma albumin amanda urement (mass/volume)Ordered By: Danette Brooks on 05-13-2025 Albumin [Mass/Vol] 3.8 g/dL 3.4-4.8 [facility] Serum or plasma albumin/glob ulin mass ratioOrdered By: Danette Brooks on 05-13-2025 Albumin/Globulin [Mass ratio] 1.6 {ratio} 0.9-2.4 [facility] Serum or plasma alkaline chinedu sphatase measurementOrdered By: Danette Brooks on 05-13-2025 ALP [Catalytic activity/Vol] 72 U/L 35-104 [facility] Serum or plasma calcium amanda urement (mass/volume)Ordered By: Danette Brooks on 05-13-2025 Calcium [Mass/Vol] 9.0 mg/dL 7.6-11.0 [facility] Serum or plasma urea nitroge n measurement (mass/volume)Ordered By: Danette Brooks on 05-13-2025 Urea nitrogen [Mass/Vol] 13 mg/dL 4-19 [facility] Sodium levelOrdered By: Lee Ann Brooks on 05-13-2025 Sodium [Moles/Vol] 131 mmol/L Low 133-145 [facility] Total proteinOrdered By: Georgi Brooks on 05-13-2025 Protein [Mass/Vol] 6.1 g/dL 5.9-8.4 [facility] White blood cell (WBC) count Ordered By: Danette Brooks on 05-13-2025 WBC (Bld) [#/Vol] 10.1 10*3/uL 4.4-11.0 [facility] Absolute lymphocyte countOrd ered By: Danette Brooks on 01-20-2025 Lymphocytes Auto (Unsp spec) [#/Vol] 2.23 10*3/uL 0.83-4.51 [facility] Absolute neutrophil countOrd ered By: Danette Brooks on 01-20-2025 Neutrophils (Bld) [#/Vol] 7.3 10*3/uL 2.0-7.7 [facility] Anion gap in Serum or Plasma Ordered By: Danette Brooks on 01-20-2025 Anion gap [Moles/Vol] 11 mmol/L 5-15 [facility] Automated lymphocyte count a s percentage of total leukocytesOrdered By: Danette Brooks on 01-20-2025 Lymphocytes/100 WBC Auto (Unsp spec) 21.2 % 19-41 [facility] BUN/creatinine ratioOrdered By: Danette Brooks on 01-20-2025 Urea nitrogen/Creatinine [Mass ratio] 24.5 mg/mg High 10-20 [facility] Basophil percentageOrdered B y: Danette Brooks on 01-20-2025 Basophils/100 WBC (Bld) 0.6 % 0-1 [facility] Bilirubin, totalOrdered By: Danette Brooks on 04-10-2025 Bilirubin [Mass/Vol] 0.36 mg/dL 0.00-1.30 [facility] CBC W/Diff, Automatedon 04- 0-2024 Absolute Lymph 2.23 X10 3/uL Normal 0.83-4.51 [facility] Comment on above: Performed By: #### L 500.4050, L100.0100 #### [facility] [address] [place], [address] Absolute Neut 7.3 X10 3/uL Normal 2.0-7.7 [facility] Comment on above: Performed By: #### L 500.4050, L100.0100 #### [facility] [address] [place], [address] Basophils/100 WBC (Bld) 0.6 % Normal 0-1 [facility] Comment on above: Performed By: #### L 500.4050, L100.0100 #### [facility] [address] [place], [address] Eosinophils/100 WBC (Bld) 1.6 % Normal 0-5 [facility] Comment on above: Performed By: #### L 500.4050, L100.0100 #### [facility] [address] [place], [address] Erythrocyte distribution width (RBC) [Ratio] 14.3 % Normal 11.6-14.6 [facility] Comment on above: Performed By: #### L 500.4050, L100.0100 #### [facility] [address] [place], [address] Hematocrit (Bld) [Volume fraction] 36.5 % Low 37-47 [facility] Comment on above: Performed By: #### L 500.4050, L100.0100 #### [facility] [address] [place], [address] Hemoglobin (Bld) [Mass/Vol] 12.5 g/dL Normal 12.0-15.0 [facility] Comment on above: Performed By: #### L 500.4050, L100.0100 #### [facility] [address] [place], [address] IG% 0.300 Normal 0.0-0.9 [facility] Comment on above: Result Comment: IG% - Immature Granulocytes (promyelocytes, myelocytes and metamyelocytes) > 1% indicates that a LEFT SHIFT is Present. Performed By: #### L 500.4050, L100.0100 #### [facility] [address] [place], [address] Lymphocytes/100 WBC (Bld) 21.2 % Normal 19-41 [facility] Comment on above: Performed By: #### L 500.4050, L100.0100 #### [facility] [address] [place], [address] MCH (RBC) [Entitic mass] 32.6 pg High 27.0-32.0 [facility] Comment on above: Performed By: #### L 500.4050, L100.0100 #### [facility] [address] [place], [address] MCHC (RBC) [Mass/Vol] 34.2 g/dL Normal 32-36 [facility] Comment on above: Performed By: #### L 500.4050, L100.0100 #### [facility] [address] [place], [address] MCV (RBC) [Entitic vol] 95.3 fL Normal 81-99 [facility] Comment on above: Performed By: #### L 500.4050, L100.0100 #### [facility] [address] [place], [address] Monocytes/100 WBC (Bld) 6.7 % Normal 0-10 [facility] Comment on above: Performed By: #### L 500.4050, L100.0100 #### [facility] [address] [place], [address] Neutrophils/100 WBC (Bld) 69.6 % Normal 47-70 [facility] Comment on above: Performed By: #### L 500.4050, L100.0100 #### [facility] [address] [place], [address] Nucleated RBC (Bld) [#/Vol] 0 10*3/uL Normal 0-5 [facility] Comment on above: Performed By: #### L 500.4050, L100.0100 #### [facility] [address] [place], [address] Platelet mean volume (Bld) [Entitic vol] 9.1 fL Normal 6.2-12.0 [facility] Comment on above: Performed By: #### L 500.4050, L100.0100 #### [facility] [address] [place], [address] Platelets (Bld) [#/Vol] 337 10*3/uL Normal 150-450 [facility] Comment on above: Performed By: #### L 500.4050, L100.0100 #### [facility] [address] [place], [address] RBC (Bld) [#/Vol] 3.83 10*6/uL Low 4.2-5.4 [facility] Comment on above: Performed By: #### L 500.4050, L100.0100 #### [facility] [address] [place], [address] RDW SD 49.2 fl High 35.1-43.9 [facility] Comment on above: Performed By: #### L 500.4050, L100.0100 #### [facility] [address] [place], [address] WBC (Bld) [#/Vol] 10.5 10*3/uL Normal 4.4-11.0 [facility] Comment on above: Performed By: #### L 500.4050, L100.0100 #### [facility] [address] [place], [address] Carbon dioxide, total [Moles /volume] in Central venous bloodOrdered By: Danette Brooks on 01-20-2025 CO2 [Moles/Vol] 23.9 mmol/L 21.0-32.0 [facility] Chloride assayOrdered By: Ness Brooks on 01-20-2025 Chloride [Moles/Vol] 96 mmol/L Low 98-108 [facility] Comprehensive Metabolic Prof ilon 01-20-2025 Albumin [Mass/Vol] 4.0 g/dL Normal 3.4-4.8 [facility] Comment on above: Performed By: #### L 500.4050, L100.0100 #### [facility] [address] [place], [address] Albumin/Globulin [Mass ratio] 1.5 {ratio} Normal 0.9-2.4 [facility] Comment on above: Performed By: #### L 500.4050, L100.0100 #### [facility] [address] [place], [address] ALK PHOS 73 U/L Normal 35-104 [facility] Comment on above: Performed By: #### L 500.4050, L100.0100 #### [facility] [address] [place], [address] ALT [Catalytic activity/Vol] 14 U/L Normal <=34 [facility] Comment on above: Performed By: #### L 500.4050, L100.0100 #### [facility] [address] [place], [address] AST [Catalytic activity/Vol] 24 U/L Normal <=31 [facility] Comment on above: Performed By: #### L 500.4050, L100.0100 #### [facility] [address] [place], [address] Bilirubin [Mass/Vol] 0.36 mg/dL Normal 0.00-1.30 [facility] Comment on above: Performed By: #### L 500.4050, L100.0100 #### [facility] [address] [place], [address] BUN/CRE 24.5 RATIO High 10-20 [facility] Comment on above: Performed By: #### L 500.4050, L100.0100 #### [facility] [address] [place], [address] Calcium [Mass/Vol] 9.4 mg/dL Normal 7.6-11.0 [facility] Comment on above: Performed By: #### L 500.4050, L100.0100 #### [facility] [address] [place], [address] Chloride [Moles/Vol] 96 mmol/L Low 98-108 [facility] Comment on above: Performed By: #### L 500.4050, L100.0100 #### [facility] [address] [place], [address] CO2 [Moles/Vol] 23.9 mmol/L Normal 21.0-32.0 [facility] Comment on above: Performed By: #### L 500.4050, L100.0100 #### [facility] [address] [place], [address] Creatinine [Mass/Vol] 0.69 mg/dL Low 0.70-1.20 [facility] Comment on above: Performed By: #### L 500.4050, L100.0100 #### [facility] [address] [place], [address] ECRCL 44.85 ml/min Low 50-250 [facility] Comment on above: Performed By: #### L 500.4050, L100.0100 #### [facility] [address] [place], [address] GAP 11 Normal 5-15 [facility] Comment on above: Performed By: #### L 500.4050, L100.0100 #### [facility] [address] [place], [address] GFR/1.73 sq M.predicted among non-blacks MDRD (S/P/Bld) [Vol rate/Area] 87 mL/min/{1.73_m2} Normal >60 [facility] Comment on above: Result Comment: mL/m in/1.73m2 CKD-EPI Creatinine Equation (2020) Performed By: #### L 500.4050, L100.0100 #### [facility] [address] [place], [address] Globulin (S) [Mass/Vol] 2.7 g/dL Normal 2.2-4.2 [facility] Comment on above: Performed By: #### L 500.4050, L100.0100 #### [facility] [address] [place], [address] Glucose [Mass/Vol] 90 mg/dL Normal 70-99 [facility] Comment on above: Performed By: #### L 500.4050, L100.0100 #### [facility] [address] [place], [address] Potassium [Moles/Vol] 4.4 mmol/L Normal 3.3-5.1 [facility] Comment on above: Performed By: #### L 500.4050, L100.0100 #### [facility] [address] [place], [address] Sodium [Moles/Vol] 131 mmol/L Low 133-145 [facility] Comment on above: Performed By: #### L 500.4050, L100.0100 #### [facility] [address] [place], [address] T PROT 6.6 g/dL Normal 5.9-8.4 [facility] Comment on above: Performed By: #### L 500.4050, L100.0100 #### [facility] [address] [place], [address] Urea nitrogen [Mass/Vol] 17 mg/dL Normal 4-19 [facility] Comment on above: Performed By: #### L 500.4050, L100.0100 #### [facility] [address] [place], [address] Eosinophil percentageOrdered By: Danette Brooks on 01-20-2025 Eosinophils/100 WBC (Bld) 1.6 % 0-5 [facility] Erythrocyte distribution wid th (RBC) [Ratio]Ordered By: Danette Brooks on 01-20-2025 Erythrocyte distribution width (RBC) [Entitic vol] 49.2 fL High 35.1-43.9 [facility] Erythrocyte distribution wid th ratioOrdered By: [facility] Cecilia on 01-20-2025 Erythrocyte distribution width (RBC) [Ratio] 14.3 % 11.6-14.6 [facility] Erythrocyte distribution wid th standard deviationOrdered By: Danette Brooks on 01-20-2025 Erythrocyte distribution width (RBC) [Ratio] 49.2 fl High 35.1-43.9 [facility] Estimation of creatinine idris aranceOrdered By: Danette Brooks on 01-20-2025 Estimated Creatinine Clearance Calc 44.85 ml/min Low 50-250 [facility] GFR/1.73 sq M.predicted leslie g non-blacks MDRD (S/P/Bld) [Vol rate/Area]Ordered By: Danette Brooks on 01-20-2025 Estimated GFR (MDRD) Non-Af Amer 87 >60 [facility] Comment on above: mL/min/1.73m2 CKD-EP I Creatinine Equation (2020) Glomerular filtration rate ( GFR) estimation/1.73 sq m using serum, plasma, or whole bOrdered By: Danette Brooks on 01-20-2025 GFR/1.73 sq M.predicted among non-blacks MDRD (S/P/Bld) [Vol rate/Area] 87 mL/min/{1.73_m2} >60 [facility] Comment on above: mL/min/1.73m2 CKD-EP I Creatinine Equation (2020) Hematocrit Auto (Bld) [Volum e fraction]Ordered By: Danette Brooks on 01-20-2025 Hematocrit (Bld) [Volume fraction] 36.5 % Low 37-47 [facility] Hemoglobin measurementOrdere d By: Danette Brooks on 01-20-2025 Hemoglobin (Bld) [Mass/Vol] 12.5 g/dL 12.0-15.0 [facility] Immature granulocytes/100 WB C Auto (Bld)Ordered By: Danette Brooks on 01-20-2025 Immature granulocytes/100 WBC (Bld) 0.300 % 0.0-0.9 [facility] Comment on above: IG% - Immature Granu locytes (promyelocytes, myelocytes and metamyelocytes) > 1% indicates that a LEFT SHIFT is Present. Laboratory - Chemistry and C hemistry - challengeOrdered By: Danette Brooks on 01-20-2025 AST [Catalytic activity/Vol] 24 U/L <32 [facility] Lymphocytes Auto (Unsp spec) [#/Vol]Ordered By: Danette Brooks on 01-20-2025 Lymphocytes (Bld) [#/Vol] 2.23 10*3/uL 0.83-4.51 [facility] Lymphocytes/100 WBC Auto (Un sp spec)Ordered By: Danette Brooks on 01-20-2025 Lymphocytes/100 WBC (Bld) 21.2 % 19-41 [facility] MCV (mean corpuscular volume ) determinationOrdered By: Danette Brooks on 01-20-2025 MCV (RBC) [Entitic vol] 95.3 fL 81-99 [facility] Mean corpuscular hemoglobin (MCH) determinationOrdered By: Danette Brooks on 01-20-2025 MCH (RBC) [Entitic mass] 32.6 pg High 27.0-32.0 [facility] Mean corpuscular hemoglobin concentration (MCHC) determinationOrdered By: Danette Brooks on 01-20-2025 MCHC (RBC) [Mass/Vol] 34.2 g/dL 32-36 [facility] Mean platelet volume determi nationOrdered By: Danette Brooks on 01-20-2025 Platelet mean volume (Bld) [Entitic vol] 9.1 fL 6.2-12.0 [facility] Monocyte percentageOrdered B y: Danette Brooks on 01-20-2025 Monocytes/100 WBC (Bld) 6.7 % 0-10 [facility] Neutrophil percentageOrdered By: Danette Brooks on 01-20-2025 Neutrophils/100 WBC (Bld) 69.6 % 47-70 [facility] Nucleated red blood cell per centageOrdered By: Danette Brooks on 01-20-2025 Nucleated RBC/100 WBC (Bld) [Ratio] 0 % 0-5 [facility] Platelet countOrdered By: Ness Brooks on 01-20-2025 Platelets (Bld) [#/Vol] 337 10*3/uL 150-450 [facility] Potassium (Unsp spec) [Mass/ Vol]Ordered By: Danette Brooks on 01-20-2025 Potassium [Moles/Vol] 4.4 mmol/L 3.3-5.1 [facility] Potassium measurement (mass/ volume)Ordered By: Danette Brooks on 01-20-2025 Potassium (Unsp spec) [Mass/Vol] 4.4 mmol/L 3.3-5.1 [facility] RBC Auto (Bld) [#/Vol]Ordere d By: Danette Brooks on 01-20-2025 RBC (Bld) [#/Vol] 3.83 10*6/uL Low 4.2-5.4 [facility] Serum creatinine measurement (mass/volume)Ordered By: Danette Brooks on 01-20-2025 Creatinine [Mass/Vol] 0.69 mg/dL Low 0.70-1.20 [facility] Serum globulin measurementOr dered By: Danette Brooks on 01-20-2025 Globulin (S) [Mass/Vol] 2.7 g/dL 2.2-4.2 [facility] Serum glucose measurement (m ass/volume)Ordered By: Danette Brooks on 01-20-2025 Glucose [Mass/Vol] 90 mg/dL 70-99 [facility] Serum or plasma alanine jones otransferase (ALT) measurementOrdered By: Danette Brooks on 01-20-2025 ALT [Catalytic activity/Vol] 14 U/L <35 [facility] Serum or plasma albumin amanda urement (mass/volume)Ordered By: Danette Brooks on 01-20-2025 Albumin [Mass/Vol] 4.0 g/dL 3.4-4.8 [facility] Serum or plasma albumin/glob ulin mass ratioOrdered By: Danette Brooks on 01-20-2025 Albumin/Globulin [Mass ratio] 1.5 {ratio} 0.9-2.4 [facility] Serum or plasma alkaline chinedu sphatase measurementOrdered By: Danette Brooks on 01-20-2025 ALP [Catalytic activity/Vol] 73 U/L 35-104 [facility] Serum or plasma calcium amanda urement (mass/volume)Ordered By: Danette Brooks on 01-20-2025 Calcium [Mass/Vol] 9.4 mg/dL 7.6-11.0 [facility] Serum or plasma urea nitroge n measurement (mass/volume)Ordered By: Danette Brooks on 01-20-2025 Urea nitrogen [Mass/Vol] 17 mg/dL 4-19 [facility] Sodium levelOrdered By: Lee Ann Brooks on 01-20-2025 Sodium [Moles/Vol] 131 mmol/L Low 133-145 [facility] Total proteinOrdered By: Georgi Brooks on 01-20-2025 Protein [Mass/Vol] 6.6 g/dL 5.9-8.4 [facility] White blood cell (WBC) count Ordered By: Danette Brooks on 01-20-2025 WBC (Bld) [#/Vol] 10.5 10*3/uL 4.4-11.0 [facility] Absolute lymphocyte countOrd ered By: Allen Morin on 12-08-2024 Lymphocytes Auto (Unsp spec) [#/Vol] 1.81 10*3/uL 0.83-4.51 [facility] Absolute neutrophil countOrd ered By: Allen Morin on 12-08-2024 Neutrophils (Bld) [#/Vol] 5.4 10*3/uL 2.0-7.7 [facility] Automated lymphocyte count a s percentage of total leukocytesOrdered By: Allen Morin on 12-08-2024 Lymphocytes/100 WBC Auto (Unsp spec) 22.6 % - [facility] BUN/creatinine ratioOrdered By: Allen Putnamok on 12-08-2024 Urea nitrogen/Creatinine [Mass ratio] 18.5 mg/mg 10- [facility] Basophil percentageOrdered B y: Allen Morin on 12-08-2024 Basophils/100 WBC (Bld) 0.8 % 0-1 [facility] Bilirubin, totalOrdered By: Allen Mikel on 12-08-2024 Bilirubin [Mass/Vol] 0.51 mg/dL 0.00-1.30 [facility] CBC W/Diff, Automatedon 11-14 Absolute Lymph 1.81 X10 3/uL Normal 0.83-4.51 [facility] Comment on above: Performed By: #### L 500.4050, L501.9520, L506.1001, L100.0100 #### [facility] [address] [place], [address] Absolute Neut 5.4 X10 3/uL Normal 2.0-7.7 [facility] Comment on above: Performed By: #### L 500.4050, L501.9520, L506.1001, L100.0100 #### [facility] [address] [place], [address] Basophils/100 WBC (Bld) 0.8 % Normal 0-1 [facility] Comment on above: Performed By: #### L 500.4050, L501.9520, L506.1001, L100.0100 #### [facility] [address] [place], [address] Eosinophils/100 WBC (Bld) 1.1 % Normal 0-5 [facility] Comment on above: Performed By: #### L 500.4050, L501.9520, L506.1001, L100.0100 #### [facility] [address] [place], [address] Erythrocyte distribution width (RBC) [Ratio] 14.7 % High 11.6-14.6 [facility] Comment on above: Performed By: #### L 500.4050, L501.9520, L506.1001, L100.0100 #### [facility] [address] [place], [address] Hematocrit (Bld) [Volume fraction] 37.5 % Normal 37-47 [facility] Comment on above: Performed By: #### L 500.4050, L501.9520, L506.1001, L100.0100 #### [facility] [address] [place], [address] Hemoglobin (Bld) [Mass/Vol] 12.6 g/dL Normal 12.0-15.0 [facility] Comment on above: Performed By: #### L 500.4050, L501.9520, L506.1001, L100.0100 #### [facility] [address] [place], [address] IG% 0.300 Normal 0.0-0.9 [facility] Comment on above: Result Comment: IG% - Immature Granulocytes (promyelocytes, myelocytes and metamyelocytes) > 1% indicates that a LEFT SHIFT is Present. Performed By: #### L 500.4050, L501.9520, L506.1001, L100.0100 #### [facility] [address] [place], [address] Lymphocytes/100 WBC (Bld) 22.6 % Normal 19-41 [facility] Comment on above: Performed By: #### L 500.4050, [id number], L506.1001, L100.0100 #### [facility] [address] [place], [address] MCH (RBC) [Entitic mass] 32.7 pg High 27.0-32.0 [facility] Comment on above: Performed By: #### L 500.4050, L501.9520, L506.1001, L100.0100 #### [facility] [address] [place], [address] MCHC (RBC) [Mass/Vol] 33.6 g/dL Normal 32-36 [facility] Comment on above: Performed By: #### L 500.4050, L501.9520, L506.1001, L100.0100 #### [facility] [address] [place], [address] MCV (RBC) [Entitic vol] 97.4 fL Normal 81-99 [facility] Comment on above: Performed By: #### L 500.4050, L501.9520, L506.1001, L100.0100 #### [facility] [address] [place], [address] Monocytes/100 WBC (Bld) 7.4 % Normal 0-10 [facility] Comment on above: Performed By: #### L 500.4050, [id number], L506.1001, L100.0100 #### [facility] [address] [place], [address] Neutrophils/100 WBC (Bld) 67.8 % Normal 47-70 [facility] Comment on above: Performed By: #### L 500.4050, L501.9520, L506.1001, L100.0100 #### [facility] [address] [place], [address] Nucleated RBC (Bld) [#/Vol] 0 10*3/uL Normal 0-5 [facility] Comment on above: Performed By: #### L 500.4050, [id number], L506.1001, L100.0100 #### [facility] [address] [place], [address] Platelet mean volume (Bld) [Entitic vol] 9.1 fL Normal 6.2-12.0 [facility] Comment on above: Performed By: #### L 500.4050, [id number], L506.1001, L100.0100 #### [facility] [address] [place], [address] Platelets (Bld) [#/Vol] 338 10*3/uL Normal 150-450 [facility] Comment on above: Performed By: #### L 500.4050, [id number], L506.1001, L100.0100 #### [facility] [address] [place], [address] RBC (Bld) [#/Vol] 3.85 10*6/uL Low 4.2-5.4 [facility] Comment on above: Performed By: #### L 500.4050, [id number], L506.1001, L100.0100 #### [facility] [address] [place], [address] RDW SD 51.9 fl High 35.1-43.9 [facility] Comment on above: Performed By: #### L 500.4050, [id number], L506.1001, L100.0100 #### [facility] [address] [place], [address] WBC (Bld) [#/Vol] 8.0 10*3/uL Normal 4.4-11.0 [facility] Comment on above: Performed By: #### L 500.4050, [id number], L506.1001, L100.0100 #### [facility] [address] [place], [address] Carbon dioxide measurementOr dered By: Allen Morin on 12-08-2024 CO2 [Moles/Vol] 24.6 mmol/L 22.0-29.0 [facility] Chloride measurementOrdered By: Allen Morin on 12-08-2024 Chloride [Moles/Vol] 98 mmol/L 96-108 [facility] Comprehensive Metabolic Prof ilon 12-08-2024 Albumin [Mass/Vol] 4.1 g/dL Normal 3.4-4.8 [facility] Comment on above: Performed By: #### L 500.4050, L501.9520, L506.1001, L100.0100 #### [facility] [address] [place], [address] Albumin/Globulin [Mass ratio] 1.7 {ratio} Normal 0.9-2.4 [facility] Comment on above: Performed By: #### L 500.4050, [id number], L506.1001, L100.0100 #### [facility] [address] [place], [address] ALK PHOS 66 U/L Normal 35-104 [facility] Comment on above: Performed By: #### L 500.4050, [id number], L506.1001, L100.0100 #### [facility] [address] [place], [address] ALT [Catalytic activity/Vol] 15 U/L Normal <=34 [facility] Comment on above: Performed By: #### L 500.4050, [id number], L506.1001, L100.0100 #### [facility] [address] [place], [address] Anion gap [Moles/Vol] 10 mmol/L Normal 5-15 [facility] Comment on above: Performed By: #### L 500.4050, [id number], L506.1001, L100.0100 #### [facility] [address] [place], [address] AST [Catalytic activity/Vol] 30 U/L Normal <=31 [facility] Comment on above: Performed By: #### L 500.4050, [id number], L506.1001, L100.0100 #### [facility] [address] [place], [address] Bilirubin [Mass/Vol] 0.51 mg/dL Normal 0.00-1.30 [facility] Comment on above: Performed By: #### L 500.4050, [id number], L506.1001, L100.0100 #### [facility] [address] [place], [address] BUN/CRE 18.5 RATIO Normal 10-20 [facility] Comment on above: Performed By: #### L 500.4050, [id number], L506.1001, L100.0100 #### [facility] [address] [place], [address] Calcium [Mass/Vol] 9.3 mg/dL Normal 7.6-11.0 [facility] Comment on above: Performed By: #### L 500.4050, [id number], L506.1001, L100.0100 #### [facility] [address] [place], [address] Chloride [Moles/Vol] 98 mmol/L Normal 96-108 [facility] Comment on above: Performed By: #### L 500.4050, [id number], L506.1001, L100.0100 #### [facility] [address] [place], [address] CO2 [Moles/Vol] 24.6 mmol/L Normal 22.0-29.0 [facility] Comment on above: Performed By: #### L 500.4050, [id number], L506.1001, L100.0100 #### [facility] [address] [place], [address] Creatinine [Mass/Vol] 0.7 mg/dL Normal 0.6-1.0 [facility] Comment on above: Performed By: #### L 500.4050, L501.9520, L506.1001, L100.0100 #### [facility] [address] [place], [address] GFR/1.73 sq M.predicted among non-blacks MDRD (S/P/Bld) [Vol rate/Area] 88 mL/min/{1.73_m2} Normal >60 [facility] Comment on above: Result Comment: mL/m in/1.73m2 CKD-EPI Creatinine Equation (2020) Performed By: #### L 500.4050, [id number], L506.1001, L100.0100 #### [facility] [address] [place], [address] Globulin (S) [Mass/Vol] 2.5 g/dL Normal 2.2-4.2 [facility] Comment on above: Performed By: #### L 500.4050, [id number], L506.1001, L100.0100 #### [facility] [address] [place], [address] Glucose [Mass/Vol] 84 mg/dL Normal 70-99 [facility] Comment on above: Performed By: #### L 500.4050, [id number], L506.1001, L100.0100 #### [facility] [address] [place], [address] Potassium [Moles/Vol] 4.4 mmol/L Normal 3.3-5.1 [facility] Comment on above: Performed By: #### L 500.4050, L501.9520, L506.1001, L100.0100 #### [facility] [address] [place], [address] Sodium [Moles/Vol] 133 mmol/L Normal 133-145 [facility] Comment on above: Performed By: #### L 500.4050, L501.9520, L506.1001, L100.0100 #### [facility] [address] [place], [address] T PROT 6.6 g/dL Normal 5.9-8.4 [facility] Comment on above: Performed By: #### L 500.4050, L501.9520, L506.1001, L100.0100 #### [facility] [address] [place], [address] Urea nitrogen [Mass/Vol] 12 mg/dL Normal 4-19 [facility] Comment on above: Performed By: #### L 500.4050, L501.9520, L506.1001, L100.0100 #### [facility] [address] [place], [address] Creatinine [Moles/Vol]Ordere d By: Allen Morin on 12-08-2024 Creatinine [Mass/Vol] 0.7 mg/dL 0.6-1.0 [facility] Eosinophil percentageOrdered By: Allen Morin on 12-08-2024 Eosinophils/100 WBC (Bld) 1.1 % 0-5 [facility] Erythrocyte distribution wid th ratioOrdered By: Allen Morin on 12-08-2024 Erythrocyte distribution width (RBC) [Ratio] 14.7 % High 11.6-14.6 [facility] Erythrocyte distribution wid th standard deviationOrdered By: Allen Morin on 12-08-2024 Erythrocyte distribution width (RBC) [Entitic vol] 51.9 fL High 35.1-43.9 [facility] Erythrocyte distribution width (RBC) [Ratio] 51.9 fl High 35.1-43.9 [facility] GFR/1.73 sq M.predicted leslie g non-blacks MDRD (S/P/Bld) [Vol rate/Area]Ordered By: Allen Morin on 12-08-2024 Estimated GFR (MDRD) Non-Af Amer 88 >60 [facility] Comment on above: mL/min/1.73m2 CKD-EP I Creatinine Equation (2020) Glomerular filtration rate ( GFR) estimation/1.73 sq m using serum, plasma, or whole bOrdered By: Allen Morin 12-08-2024 GFR/1.73 sq M.predicted among non-blacks MDRD (S/P/Bld) [Vol rate/Area] 88 mL/min/{1.73_m2} >60 [facility] Comment on above: mL/min/1.73m2 CKD-EP I Creatinine Equation (2020) Hematocrit Auto (Bld) [Volum e fraction]Ordered By: Allen Morin 12-08-2024 Hematocrit (Bld) [Volume fraction] 37.5 % 37-47 [facility] Hemoglobin measurementOrdere d By: Allen Morin 12-08-2024 Hemoglobin (Bld) [Mass/Vol] 12.6 g/dL 12.0-15.0 [facility] Immature granulocytes/100 WB C Auto (Bld)Ordered By: Allen Morin 12-08-2024 Immature granulocytes/100 WBC (Bld) 0.300 % 0.0-0.9 [facility] Comment on above: IG% - Immature Granu locytes (promyelocytes, myelocytes and metamyelocytes) > 1% indicates that a LEFT SHIFT is Present. L506.1001on 12-08-2024 Vitamin D 25-OH 35.0 ng/mL Normal 30-100 [facility] Comment on above: Result Comment: Clementine min D Status Deficiency: <20 ng/mL (50nmol/L) Insufficiency: 20-30 ng/mL (50-75 nmol/L) Sufficiency: 30-100 ng/mL (75-250 nmol/L) Toxicity: >100 ng/mL (>250 nmol/L) Performed By: #### L 500.4050, L501.9520, L506.1001, L100.0100 #### [facility] [address] [place], [address] Laboratory - Chemistry and C hemistry - challengeOrdered By: Allen Morin on 12-08-2024 AST [Catalytic activity/Vol] 30 U/L <32 [facility] Lymphocytes Auto (Unsp spec) [#/Vol]Ordered By: Allen Mikel on 12-08-2024 Lymphocytes (Bld) [#/Vol] 1.81 10*3/uL 0.83-4.51 [facility] Lymphocytes/100 WBC Auto (Un sp spec)Ordered By: Allen Morin 12-08-2024 Lymphocytes/100 WBC (Bld) 22.6 % 19-41 [facility] MCV (mean corpuscular volume ) determinationOrdered By: Allen Morin 12-08-2024 MCV (RBC) [Entitic vol] 97.4 fL 81-99 [facility] Mean corpuscular hemoglobin (MCH) determinationOrdered By: Allen Morin 12-08-2024 MCH (RBC) [Entitic mass] 32.7 pg High 27.0-32.0 [facility] Mean corpuscular hemoglobin concentration (MCHC) determinationOrdered By: Allen Mikel 12-08-2024 MCHC (RBC) [Mass/Vol] 33.6 g/dL 32-36 [facility] Mean platelet volume determi nationOrdered By: [facility] on 12-08-2024 Platelet mean volume (Bld) [Entitic vol] 9.1 fL 6.2-12.0 [facility] Monocyte percentageOrdered B y: Allen Morin on 12-08-2024 Monocytes/100 WBC (Bld) 7.4 % 0-10 [facility] Neutrophil percentageOrdered By: Allen Morin on 12-08-2024 Neutrophils/100 WBC (Bld) 67.8 % 47-70 [facility] No Panel InformationOrdered By: Allen Morin on 12-08-2024 Vitamin D 25-Hydroxy 35.0 ng/mL 30-100 [facility] Comment on above: Vitamin D StatusDefi ciency: <20 ng/mL (50nmol/L)Insufficiency: 20-30 ng/mL (50-75 nmol/L)Sufficiency: 30-100 ng/mL (75-250 nmol/L)Toxicity: >100 ng/mL (>250 nmol/L) Nucleated red blood cell per centageOrdered By: Allen Morin on 12-08-2024 Nucleated RBC/100 WBC (Bld) [Ratio] 0 % 0-5 [facility] Platelet countOrdered By: Hari Morin on 12-08-2024 Platelets (Bld) [#/Vol] 338 10*3/uL 150-450 [facility] RBC Auto (Bld) [#/Vol]Ordere d By: Allen Morin on 12-08-2024 RBC (Bld) [#/Vol] 3.85 10*6/uL Low 4.2-5.4 [facility] Serum globulin measurementOr dered By: Allen Morin on 12-08-2024 Globulin (S) [Mass/Vol] 2.5 g/dL 2.2-4.2 [facility] Serum glucose measurement (m ass/volume)Ordered By: Allen Morin 12-08-2024 Glucose [Mass/Vol] 84 mg/dL 70-99 [facility] Serum or plasma alanine jones otransferase (ALT) measurementOrdered By: Allen Morin 12-08-2024 ALT [Catalytic activity/Vol] 15 U/L <35 [facility] Serum or plasma albumin amanda urement (mass/volume)Ordered By: Allen Morin 12-08-2024 Albumin [Mass/Vol] 4.1 g/dL 3.4-4.8 [facility] Serum or plasma albumin/glob ulin mass ratioOrdered By: Allen Morin 12-08-2024 Albumin/Globulin [Mass ratio] 1.7 {ratio} 0.9-2.4 [facility] Serum or plasma alkaline chinedu sphatase measurementOrdered By: Allen Morin on 02-26-2025 ALP [Catalytic activity/Vol] 66 U/L 35-104 [facility] Serum or plasma anion gap de termination (moles/volume)Ordered By: Allen Morin on 12-08-2024 Anion gap [Moles/Vol] 10 mmol/L 5-15 [facility] Serum or plasma calcium amanda urement (mass/volume)Ordered By: Allen Morin on 12-08-2024 Calcium [Mass/Vol] 9.3 mg/dL 7.6-11.0 [facility] Serum or plasma creatinine m easurement (moles/volume)Ordered By: Allen Morin on 12-08-2024 Creatinine [Moles/Vol] 0.7 mg/dL 0.6-1.0 [facility] Serum or plasma potassium me asurementOrdered By: Allen Morin on 12-08-2024 Potassium [Moles/Vol] 4.4 mmol/L 3.3-5.1 [facility] Serum or plasma sodium measu rement (moles/volume)Ordered By: Allen Morin on 12-08-2024 Sodium [Moles/Vol] 133 mmol/L 133-145 [facility] Serum or plasma urea nitroge n measurement (mass/volume)Ordered By: Allen Morin on 12-08-2024 Urea nitrogen [Mass/Vol] 12 mg/dL 4-19 [facility] TSH DL <= 0.005 mIU/L QnOrde red By: Allen Morin on 12-08-2024 Thyroid Stimulating Hormone (TSH) 2.440 uIU/mL 0.300-4.200 [facility] TSH Qn 2.440 uIU/mL 0.300-4.200 [facility] Thyroid Stim Hormone (TSH)on 12-08-2024 TSH 2.440 uIU/mL Normal 0.300-4.200 [facility] Comment on above: Performed By: #### L 500.4058, L501.9581, L506.1001, L100.0100 #### [facility] [address] [place], [address] Total proteinOrdered By: Allen Morin on 12-08-2024 Protein [Mass/Vol] 6.6 g/dL 5.9-8.4 [facility] White blood cell (WBC) count Ordered By: Allen Morin on 12-08-2024 WBC (Bld) [#/Vol] 8.0 10*3/uL 4.4-11.0 [facility] Absolute lymphocyte countOrd ered By: Danettebev Brooks on 10-28-2024 Lymphocytes Auto (Unsp spec) [#/Vol] 1.94 10*3/uL 0.83-4.51 [facility] Absolute neutrophil countOrd ered By: Danette Brooks on 10-28-2024 Neutrophils (Bld) [#/Vol] 5.7 10*3/uL 2.0-7.7 [facility] Albumin to globulin ratioOrd ered By: Danettebev Brooks on 10-28-2024 Albumin/Globulin [Mass ratio] 1.0 {ratio} 0.9-2.4 [facility] Automated lymphocyte count a s percentage of total leukocytesOrdered By: Danette Brooks on 10-28-2024 Lymphocytes/100 WBC Auto (Unsp spec) 23.0 % 19-41 [facility] Basophil percentageOrdered B y: Danette Brooks on 10-28-2024 Basophils/100 WBC (Bld) 0.5 % 0-1 [facility] Bilirubin, totalOrdered By: Danettebev Brooks on 10-28-2024 Bilirubin [Mass/Vol] 0.40 mg/dL 0.20-1.00 [facility] Comment on above: For patients on eltr ombopag therapy, use of Dimension [place] TBIL is not recommended. Blood urea nitrogen (BUN)/cr eatinine ratioOrdered By: Danette Brooks on 10-28-2024 Urea nitrogen/Creatinine [Mass ratio] 18.1 mg/mg 10-20 [facility] CBC W/Diff, Automatedon 10-13 Absolute Lymph 1.94 X10 3/uL Normal 0.83-4.51 [facility] Comment on above: Performed By: #### L 500.4050, L100.0100 #### [facility] [place], [address] Absolute Neut 5.7 X10 3/uL Normal 2.0-7.7 [facility] Comment on above: Performed By: #### L 500.4050, L100.0100 #### [facility] [address] [place], [address] Basophils/100 WBC (Bld) 0.5 % Normal 0-1 [facility] Comment on above: Performed By: #### L [id number], L100.0100 #### [facility] [address] [place], [address] Eosinophils/100 WBC (Bld) 1.5 % Normal 0-5 [facility] Comment on above: Performed By: #### L [id number], L100.0100 #### [facility] [address] [place], [address] Erythrocyte distribution width (RBC) [Ratio] 14.4 % Normal 11.6-14.6 [facility] Comment on above: Performed By: #### L [id number], L100.0100 #### [facility] [address] [place], [address] Hematocrit (Bld) [Volume fraction] 36.3 % Low 37-47 [facility] Comment on above: Performed By: #### L 500.4050, L100.0100 #### [facility] [address] [place], [address] Hemoglobin (Bld) [Mass/Vol] 12.0 g/dL Normal 12.0-15.0 [facility] Comment on above: Performed By: #### L 500.4050, L100.0100 #### [facility] [address] [place], [address] IG% 0.400 Normal 0.0-0.9 [facility] Comment on above: Result Comment: IG% - Immature Granulocytes (promyelocytes, myelocytes and metamyelocytes) > 1% indicates that a LEFT SHIFT is Present. Performed By: #### L 500.4050, L100.0100 #### [facility] [address] [place], [address] Lymphocytes/100 WBC (Bld) 23.0 % Normal 19-41 [facility] Comment on above: Performed By: #### L 500.4050, L100.0100 #### [facility] [address] [place], [address] MCH (RBC) [Entitic mass] 31.6 pg Normal 27.0-32.0 [facility] Comment on above: Performed By: #### L [id number], L100.0100 #### [facility] [address] [place], [address] MCHC (RBC) [Mass/Vol] 33.1 g/dL Normal 32-36 [facility] Comment on above: Performed By: #### L 500.4050, L100.0100 #### [facility] [address] [place], [address] MCV (RBC) [Entitic vol] 95.5 fL Normal 81-99 [facility] Comment on above: Performed By: #### L 500.4050, L100.0100 #### [facility] [address] [place], [address] Monocytes/100 WBC (Bld) 7.7 % Normal 0-10 [facility] Comment on above: Performed By: #### L 500.4050, L100.0100 #### [facility] [address] [place], [address] Neutrophils/100 WBC (Bld) 66.9 % Normal 47-70 [facility] Comment on above: Performed By: #### L 500.4050, L100.0100 #### [facility] [address] [place], [address] Nucleated RBC (Bld) [#/Vol] 0 10*3/uL Normal 0-5 [facility] Comment on above: Performed By: #### L 500.4050, L100.0100 #### [facility] [address] [place], [address] Platelet mean volume (Bld) [Entitic vol] 8.7 fL Normal 6.2-12.0 [facility] Comment on above: Performed By: #### L 500.4050, L100.0100 #### [facility] [address] [place], [address] Platelets (Bld) [#/Vol] 337 10*3/uL Normal 150-450 [facility] Comment on above: Performed By: #### L [id number], L100.0100 #### [facility] [address] [place], [address] RBC (Bld) [#/Vol] 3.80 10*6/uL Low 4.2-5.4 [facility] Comment on above: Performed By: #### L 500.4050, L100.0100 #### [facility] [address] [place], [address] RDW SD 49.8 fl High 35.1-43.9 [facility] Comment on above: Performed By: #### L 500.4050, L100.0100 #### [facility] [address] [place], [address] WBC (Bld) [#/Vol] 8.4 10*3/uL Normal 4.4-11.0 [facility] Comment on above: Performed By: #### L 500.4050, L100.0100 #### [facility] [address] [place], [address] Carbon dioxide measurementOr dered By: Danette Brooks on 10-28-2024 CO2 [Moles/Vol] 29.0 mmol/L 21.0-32.0 [facility] Chloride measurementOrdered By: Danette Brooks on 10-28-2024 Chloride [Moles/Vol] 100 mmol/L 98-107 [facility] Comprehensive Metabolic Prof ilon 10-28-2024 Albumin [Mass/Vol] 3.2 g/dL Normal 3.2-5.0 [facility] Comment on above: Performed By: #### L 500.4050, L100.0100 #### [facility] [address] [place], [address] Albumin/Globulin [Mass ratio] 1.0 {ratio} Normal 0.9-2.4 [facility] Comment on above: Performed By: #### L 500.4050, L100.0100 #### [facility] [address] [place], [address] ALK P 66 U/L Normal 45-117 [facility] Comment on above: Performed By: #### L 500.4050, L100.0100 #### [facility] [address] [place], [address] ALT [Catalytic activity/Vol] 13 U/L Normal 13-56 [facility] Comment on above: Performed By: #### L 500.4050, L100.0100 #### [facility] [address] [place], [address] AST [Catalytic activity/Vol] 17 U/L Normal 15-37 [facility] Comment on above: Performed By: #### L 500.4050, L100.0100 #### [facility] [address] [place], [address] Bilirubin [Mass/Vol] 0.40 mg/dL Normal 0.20-1.00 [facility] Comment on above: Result Comment: For patients on eltrombopag therapy, use of Dimension [place] TBIL is not recommended. Performed By: #### L 500.4050, L100.0100 #### [facility] [address] [place], [address] BUN/CRE 18.1 RATIO Normal 10-20 [facility] Comment on above: Performed By: #### L 500.4050, L100.0100 #### [facility] [address] [place], [address] CA,Total 8.8 mg/dL Normal 8.5-10.1 [facility] Comment on above: Performed By: #### L 500.4050, L100.0100 #### [facility] [address] [place], [address] Chloride [Moles/Vol] 100 mmol/L Normal 98-107 [facility] Comment on above: Performed By: #### L 500.4050, L100.0100 #### [facility] [address] [place], [address] CO2 [Moles/Vol] 29.0 mmol/L Normal 21.0-32.0 [facility] Comment on above: Performed By: #### L 500.4050, L100.0100 #### [facility] [address] [place], [address] Creatinine [Mass/Vol] 0.66 mg/dL Normal 0.55-1.02 [facility] Comment on above: Result Comment: The validity of the calculated GFR GFRAA in patients over 70 years has not been determined. Clinical correlation is essential. Performed By: #### L 500.4050, L100.0100 #### [facility] [address] [place], [address] ECRCL 44.85 ml/min Normal [facility] Comment on above: Performed By: #### L 500.4050, L100.0100 #### [facility] [address] [place], [address] EST GFR - AA 110 mL/min Normal >60 [facility] Comment on above: Result Comment: Afri can Cuban GFR Calc Performed By: #### L 500.4050, L100.0100 #### [facility] [address] [place], [address] GAP 6 Normal 5-15 [facility] Comment on above: Performed By: #### L 500.4050, L100.0100 #### [facility] [address] [place], [address] GFR/1.73 sq M.predicted among non-blacks MDRD (S/P/Bld) [Vol rate/Area] 91 mL/min/{1.73_m2} Normal >60 [facility] Comment on above: Result Comment: Non- GFR Calc Performed By: #### L 500.4050, L100.0100 #### [facility] [address] [place], [address] Globulin (S) [Mass/Vol] 3.3 g/dL Normal 2.2-4.2 [facility] Comment on above: Performed By: #### L 500.4050, L100.0100 #### [facility] [address] [place], [address] Glucose [Mass/Vol] 75 mg/dL Normal 74-106 [facility] Comment on above: Performed By: #### L 500.4050, L100.0100 #### [facility] [address] [place], [address] Potassium [Moles/Vol] 4.2 mmol/L Normal 3.5-5.1 [facility] Comment on above: Performed By: #### L 500.4050, L100.0100 #### [facility] [address] [place], [address] Sodium [Moles/Vol] 134 mmol/L Low 136-145 [facility] Comment on above: Performed By: #### L 500.4050, L100.0100 #### [facility] [address] [place], [address] T PROT 6.5 g/dL Normal 6.4-8.2 [facility] Comment on above: Performed By: #### L 500.4050, L100.0100 #### [facility] [address] [place], [address] Urea nitrogen [Mass/Vol] 12 mg/dL Normal 7-18 [facility] Comment on above: Performed By: #### L 500.4050, L100.0100 #### [facility] [address] [place], [address] Eosinophil percentageOrdered By: Danette Brooks on 10-28-2024 Eosinophils/100 WBC (Bld) 1.5 % 0-5 [facility] Erythrocyte distribution wid th ratioOrdered By: Danette Brooks on 10-28-2024 Erythrocyte distribution width (RBC) [Ratio] 14.4 % 11.6-14.6 [facility] Erythrocyte distribution wid th standard deviationOrdered By: Danette Brooks on 10-28-2024 Erythrocyte distribution width (RBC) [Entitic vol] 49.8 fL High 35.1-43.9 [facility] Erythrocyte distribution width (RBC) [Ratio] 49.8 fl High 35.1-43.9 [facility] Estimated glomerular filtrat ion rate (GFR) AmericanOrdered By: Danette Brooks on 10-28-2024 Estimated GFR (MDRD) Amer 110 mL/min >60 [facility] Comment on above: GFR Calc Estimation of creatinine idris aranceOrdered By: Danette Brooks on 10-28-2024 Estimated Creatinine Clearance Calc 44.85 ml/min [facility] Glomerular filtration rate ( GFR) estimationOrdered By: Danette Brooks on 10-28-2024 Estimated GFR (MDRD) Non-Af Amer 91 mL/min >60 [facility] Comment on above: Non- GFR Calc GFR/1.73 sq M.predicted among non-blacks MDRD (S/P/Bld) [Vol rate/Area] 91 mL/min/{1.73_m2} >60 [facility] Comment on above: Non- GFR Calc Glucose measurementOrdered B y: Danette Brooks on 10-28-2024 Glucose [Mass/Vol] 75 mg/dL 74-106 [facility] Hematocrit Auto (Bld) [Volum e fraction]Ordered By: Danette Brooks on 10-28-2024 Hematocrit (Bld) [Volume fraction] 36.3 % Low 37-47 [facility] Hemoglobin measurementOrdere d By: Danette Brooks on 10-28-2024 Hemoglobin (Bld) [Mass/Vol] 12.0 g/dL 12.0-15.0 [facility] Immature granulocytes/100 WB C Auto (Bld)Ordered By: Danette Brooks on 10-28-2024 Immature granulocytes/100 WBC (Bld) 0.400 % 0.0-0.9 [facility] Comment on above: IG% - Immature Granu locytes (promyelocytes, myelocytes and metamyelocytes) > 1% indicates that a LEFT SHIFT is Present. Laboratory - Chemistry and C hemistry - challengeOrdered By: Danette Brooks on 10-28-2024 AST [Catalytic activity/Vol] 17 U/L 15-37 [facility] Lymphocytes Auto (Unsp spec) [#/Vol]Ordered By: Danette Brooks on 10-28-2024 Lymphocytes (Bld) [#/Vol] 1.94 10*3/uL 0.83-4.51 [facility] Lymphocytes/100 WBC Auto (Un sp spec)Ordered By: Danette Brooks on 10-28-2024 Lymphocytes/100 WBC (Bld) 23.0 % 19-41 [facility] MCV (mean corpuscular volume ) determinationOrdered By: Danette Brooks on 10-28-2024 MCV (RBC) [Entitic vol] 95.5 fL 81-99 [facility] Mean corpuscular hemoglobin (MCH) determinationOrdered By: Danette Brooks on 10-28-2024 MCH (RBC) [Entitic mass] 31.6 pg 27.0-32.0 [facility] Mean corpuscular hemoglobin concentration (MCHC) determinationOrdered By: Danette Brooks on 10-28-2024 MCHC (RBC) [Mass/Vol] 33.1 g/dL 32-36 [facility] Mean platelet volume determi nationOrdered By: Danette Brooks on 10-28-2024 Platelet mean volume (Bld) [Entitic vol] 8.7 fL 6.2-12.0 [facility] Monocyte percentageOrdered B y: Danette Brooks on 10-28-2024 Monocytes/100 WBC (Bld) 7.7 % 0-10 [facility] Neutrophil percentageOrdered By: Danette Brooks on 10-28-2024 Neutrophils/100 WBC (Bld) 66.9 % 47-70 [facility] Nucleated red blood cell per centageOrdered By: Danette Brooks on 10-28-2024 Nucleated RBC/100 WBC (Bld) [Ratio] 0 % 0-5 [facility] Platelet countOrdered By: Ness Brooks on 10-28-2024 Platelets (Bld) [#/Vol] 337 10*3/uL 150-450 [facility] Potassium measurementOrdered By: Danette Brooks on 10-28-2024 Potassium [Moles/Vol] 4.2 mmol/L 3.5-5.1 [facility] RBC Auto (Bld) [#/Vol]Ordere d By: Danette Brooks on 10-28-2024 RBC (Bld) [#/Vol] 3.80 10*6/uL Low 4.2-5.4 [facility] Serum anion gap measurementO rdered By: Danette Brooks on 10-28-2024 Anion gap [Moles/Vol] 6 mmol/L 5-15 [facility] Serum globulin measurementOr dered By: Danette Brooks on 10-28-2024 Globulin (S) [Mass/Vol] 3.3 g/dL 2.2-4.2 [facility] Serum or plasma alanine jones otransferase (ALT) measurementOrdered By: Danette Brooks on 10-28-2024 ALT [Catalytic activity/Vol] 13 U/L 13-56 [facility] Serum or plasma albumin amanda urement (mass/volume)Ordered By: Danette Brooks on 10-28-2024 Albumin [Mass/Vol] 3.2 g/dL 3.2-5.0 [facility] Serum or plasma alkaline chinedu sphatase measurementOrdered By: Danette Brooks on 10-28-2024 ALP [Catalytic activity/Vol] 66 U/L 45-117 [facility] Serum or plasma calcium amanda urement (mass/volume)Ordered By: Danette Brooks on 10-28-2024 Calcium [Mass/Vol] 8.8 mg/dL 8.5-10.1 [facility] Serum or plasma creatinine m easurement (mass/volume)Ordered By: Danette Brooks on 10-28-2024 Creatinine [Mass/Vol] 0.66 mg/dL 0.55-1.02 [facility] Comment on above: The validity of the calculated GFR & GFRAA in patients over 70 years has not been determined. Clinical correlation is essential. Serum or plasma urea nitroge n measurement (mass/volume)Ordered By: Danette Brooks on 10-28-2024 Urea nitrogen [Mass/Vol] 12 mg/dL 7-18 [facility] Sodium levelOrdered By: Lee Ann Brooks on 10-28-2024 Sodium [Moles/Vol] 134 mmol/L Low 136-145 [facility] Total proteinOrdered By: Georgi Brooks on 10-28-2024 Protein [Mass/Vol] 6.5 g/dL 6.4-8.2 [facility] White blood cell (WBC) count Ordered By: Danette Brooks on 10-28-2024 WBC (Bld) [#/Vol] 8.4 10*3/uL 4.4-11.0 [facility] Absolute lymphocyte countOrd ered By: Danette Brooks on 01-05-2024 Lymphocytes Auto (Unsp spec) [#/Vol] 1.09 10*3/uL 0.83-4.51 [facility] Automated lymphocyte count a s percentage of total leukocytesOrdered By: Danette Brooks on 01-05-2024 Lymphocytes/100 WBC Auto (Unsp spec) 9.8 % 19-41 [facility] Basophil percentageOrdered B y: Danette Brooks on 01-05-2024 Basophils/100 WBC (Bld) 0.4 % 0-1 [facility] Bilirubin [Mass/Vol] 0.40 mg/dL 0.20-1.00 [facility] Comment on above: For patients on eltr ombopag therapy, use of Dimension [place] TBIL is not recommended. Chloride [Moles/Vol] 99 mmol/L 98-107 [facility] Eosinophils/100 WBC (Bld) 1.8 % 0-5 [facility] Glucose [Mass/Vol] 68 mg/dL 74-106 [facility] Hemoglobin (Bld) [Mass/Vol] 11.5 g/dL 12.0-15.0 [facility] Monocytes/100 WBC (Bld) 9.8 % 0-10 [facility] Neutrophils (Bld) [#/Vol] 8.7 10*3/uL 2.0-7.7 [facility] Neutrophils/100 WBC (Bld) 77.9 % 47-70 [facility] Potassium [Moles/Vol] 4.3 mmol/L 3.5-5.1 [facility] Protein [Mass/Vol] 6.7 g/dL 6.4-8.2 [facility] Sodium [Moles/Vol] 132 mmol/L 136-145 [facility] WBC (Bld) [#/Vol] 11.2 10*3/uL 4.4-11.0 [facility] Determination of erythrocyte mean corpuscular volume (MCV)Ordered By: Danette Brooks on 01-05-2024 MCV (RBC) [Entitic vol] 95.9 fL 81-99 [facility] Erythrocyte distribution wid th ratioOrdered By: Danette Brooks on 01-05-2024 Erythrocyte distribution width (RBC) [Ratio] 14.3 % 11.6-14.6 [facility] Erythrocyte distribution wid th standard deviationOrdered By: Danette Brooks on 01-05-2024 Erythrocyte distribution width (RBC) [Entitic vol] 49.7 fL 35.1-43.9 [facility] Hematocrit Auto (Bld) [Volum e fraction]Ordered By: Danette Brooks on 01-05-2024 Hematocrit (Bld) [Volume fraction] 35.4 % 37-47 [facility] Immature granulocytes/100 WB C Auto (Bld)Ordered By: Danette Brooks on 01-05-2024 Immature granulocytes/100 WBC (Bld) 0.300 % 0.0-0.9 [facility] Comment on above: IG% - Immature Granu locytes (promyelocytes, myelocytes and metamyelocytes) > 1% indicates that a LEFT SHIFT is Present. Laboratory - Chemistry and C hemistry - challengeOrdered By: Danette Brooks on 01-05-2024 Albumin/Globulin [Mass ratio] 1.0 {ratio} 0.9-2.4 [facility] ALP [Catalytic activity/Vol] 75 U/L 45-117 [facility] ALT [Catalytic activity/Vol] 14 U/L 13-56 [facility] CO2 [Moles/Vol] 28.0 mmol/L 21.0-32.0 [facility] Globulin (S) [Mass/Vol] 3.4 g/dL 2.2-4.2 [facility] Urea nitrogen/Creatinine [Mass ratio] 29.3 mg/mg 10-20 [facility] - Hematology and Cell countsOrdered By: Danette Brooks on 01-05-2024 MCH (RBC) [Entitic mass] 31.2 pg 27.0-32.0 [facility] MCHC (RBC) [Mass/Vol] 32.5 g/dL 32-36 [facility] Nucleated RBC/100 WBC (Bld) [Ratio] 0 % 0-5 [facility] Platelet mean volume (Bld) [Entitic vol] 8.7 fL 6.2-12.0 [facility] Platelets (Bld) [#/Vol] 333 10*3/uL 150-450 [facility] No Panel InformationOrdered By: Danette Brooks on 01-05-2024 Estimated Creatinine Clearance Calc 47.63 ml/min [facility] Estimated GFR (MDRD) Amer 120 mL/min >60 [facility] Comment on above: GFR Calc Estimated GFR (MDRD) Non-Af Amer 99 mL/min >60 [facility] Comment on above: Non- GFR Calc RBC Auto (Bld) [#/Vol]Ordere d By: Danette Brooks on 01-05-2024 RBC (Bld) [#/Vol] 3.69 10*6/uL 4.2-5.4 [facility] Serum or plasma calcium amanda urement (mass/volume)Ordered By: Danette Brooks on 01-05-2024 Calcium [Mass/Vol] 8.7 mg/dL 8.5-10.1 [facility] Serum or plasma creatinine m easurement (mass/volume)Ordered By: Danette Brooks on 01-05-2024 Creatinine [Mass/Vol] 0.61 mg/dL 0.55-1.02 [facility] Comment on above: The validity of the calculated GFR & GFRAA in patients over 70 years has not been determined. Clinical correlation is essential. Serum or plasma urea nitroge n measurement (mass/volume)Ordered By: Danette Brooks on 01-05-2024 Urea nitrogen [Mass/Vol] 18 mg/dL 7-18 [facility] Thin prep Papanicolaou smear with manual screeningOrdered By: Danette Brooks on 01-05-2024 Thin prep Papanicolaou smear with manual screening 3.3 g/dL 3.2-5.0 [facility] Thin prep Papanicolaou smear with manual screening 17 U/L 15-37 [facility] Thin prep Papanicolaou smear with manual screening 5 5-15 [facility] .Auto Diffon 11-26-2023 Basophil, Absolute 0.0 10 3/mcL Normal 0.0-0.2 [facility] ([place]) Comment on above: Performed By: #### A DIFF, GFR, BMP, CBC, ANEU #### [address] [address] Basophils/100 WBC (Bld) 0.1 % Normal 0.0-2.5 A [facility] ([place]) Comment on above: Performed By: #### A DIFF, GFR, BMP, CBC, ANEU #### [address] [address] Eosinophil, Absolute 0.0 10 3/mcL Normal 0.0-0.4 [facility] ([place]) Comment on above: Performed By: #### A DIFF, GFR, BMP, CBC, ANEU #### [address] [address] Eosinophils/100 WBC (Bld) 0.0 % Normal 0.0-7.0 [facility] ([place] Comment on above: Performed By: #### A DIFF, GFR, BMP, CBC, ANEU #### [address] [address] Lymphocyte, Absolute 1.1 10 3/mcL Normal 0.8-3.9 [facility] ([place] Comment on above: Performed By: #### A DIFF, GFR, BMP, CBC, ANEU #### [address] [address] Lymphocytes/100 WBC (Bld) 7.3 % Low 10.0-50.0 [facility] ([place] Comment on above: Performed By: #### A DIFF, GFR, BMP, CBC, ANEU #### [address] [address] Monocyte, Absolute 1.0 10 3/mcL Normal 0.2-1.0 [facility] ([place] Comment on above: Performed By: #### A DIFF, GFR, BMP, CBC, ANEU #### [address] [address] Monocytes/100 WBC (Bld) 6.8 % Normal 1.7-13.0 [facility] ([place]) Comment on above: Performed By: #### A DIFF, GFR, BMP, CBC, ANEU #### [address] [address] Neutrophils/100 WBC (Bld) 85.8 % High 37.0-80.0 [facility] ([place] Comment on above: Performed By: #### A DIFF, GFR, BMP, CBC, ANEU #### [address] [address] .GFRon 11-26-2023 GFR 76 ml/min/1.73sqm Normal [facility] ([place]) Comment on above: Result Comment: GFR Population mean for , Non- Americans Ages 20-29 = 116 mL/min/1.73 sq.m. Ages 30-39 = 107 mL/min/1.73 sq.m. Ages 40-49 = 99 mL/min/1.73 sq.m. Ages 50-59 = 93 mL/min/1.73 sq.m. Ages 60-69 = 85 mL/min/1.73 sq.m. Ages 70+ = 75 mL/min/1.73 sq.m. Chronic Kidney Disease: Less than 60 mL/min/1.73 square meters End Stage Renal Disease: Less than 15 mL/min/1.73 square meters Performed By: #### A DIFF, GFR, BMP, CBC, ANEU #### [address] [address] GFR Non- 62 ml/min/1.73sqm Normal [facility] ([place] Comment on above: Result Comment: GFR Population mean for , Non- Americans Ages 20-29 = 116 mL/min/1.73 sq.m. Ages 30-39 = 107 mL/min/1.73 sq.m. Ages 40-49 = 99 mL/min/1.73 sq.m. Ages 50-59 = 93 mL/min/1.73 sq.m. Ages 60-69 = 85 mL/min/1.73 sq.m. Ages 70+ = 75 mL/min/1.73 sq.m. Chronic Kidney Disease: Less than 60 mL/min/1.73 square meters End Stage Renal Disease: Less than 15 mL/min/1.73 square meters Performed By: #### A DIFF, GFR, BMP, CBC, ANEU #### [address] [address] .NEUABSon 11-26-2023 Neutrophil, Absolute 12.6 10 3/mcL High 2.9-6.2 A [facility] ([place] Comment on above: Performed By: #### A BOG, ANSG, CBC, ADIFF, ANEU, ALB #### [address] [address] BMP11-26-2023 BUN/Creatinine Ratio 25 ratio Normal 7-27 [facility] ([place]) Comment on above: Performed By: #### A DIFF, GFR, BMP, CBC, ANEU #### [address] [address] Calcium [Mass/Vol] 8.8 mg/dL Normal 8.4-10.2 [facility] ([place]) Comment on above: Performed By: #### A DIFF, GFR, BMP, CBC, ANEU #### [address] [address] Chloride [Moles/Vol] 101 mmol/L Normal 98-107 [facility] ([place]) Comment on above: Performed By: #### A DIFF, GFR, BMP, CBC, ANEU #### [address] [address] CO2 [Moles/Vol] 25 mmol/L Normal 23-31 [facility] ([place]) Comment on above: Performed By: #### A DIFF, GFR, BMP, CBC, ANEU #### [address] [address] Creatinine [Mass/Vol] 0.87 mg/dL Normal 0.55-1.02 [facility] ([place]) Comment on above: Performed By: #### A DIFF, GFR, BMP, CBC, ANEU #### [address] [address] Electrolyte Balance 9.0 mEq/L Normal 4.0-15.0 [facility] ([place] Comment on above: Performed By: #### A DIFF, GFR, BMP, CBC, ANEU #### [address] [address] Glucose [Mass/Vol] 102 mg/dL Normal 83-110 [facility] ([place] Comment on above: Performed By: #### A DIFF, GFR, BMP, CBC, ANEU #### [address] [address] Potassium [Moles/Vol] 4.4 mmol/L Normal 3.5-5.1 [facility] ([place]) Comment on above: Performed By: #### A DIFF, GFR, BMP, CBC, ANEU #### [address] [address] Sodium [Moles/Vol] 135 mmol/L Low 136-145 [facility] ([place] Comment on above: Performed By: #### A DIFF, GFR, BMP, CBC, ANEU #### [place] [id number] Urea nitrogen [Mass/Vol] 22 mg/dL High 7-18 [facility] ([place] Comment on above: Performed By: #### A DIFF, GFR, BMP, CBC, ANEU #### [place] [id number] CBCon 11-26-2023 Erythrocyte distribution width (RBC) [Ratio] 14.4 % Normal 11.5-14.5 [facility] ([place] Comment on above: Performed By: #### A DIFF, GFR, BMP, CBC, ANEU #### [place] [id number] Hematocrit (Bld) [Volume fraction] 29.4 % Low 37.0-47.0 [facility] ([place] Comment on above: Performed By: #### A DIFF, GFR, BMP, CBC, ANEU #### [address] [address] Hgb 10.1 G/dL Low 12.0-16.0 [facility] ([place] Comment on above: Performed By: #### A DIFF, GFR, BMP, CBC, ANEU #### [address] [address] MCH (RBC) [Entitic mass] 32.9 pg High 27.0-31.2 [facility] ([place] Comment on above: Performed By: #### A DIFF, GFR, BMP, CBC, ANEU #### [address] [address] MCHC 34.4 G/dL Normal 33.0-37.0 [facility] ([place] Comment on above: Performed By: #### A DIFF, GFR, BMP, CBC, ANEU #### [address] [address] MCV (RBC) [Entitic vol] 95.6 fL High 80.0-94.0 A [facility] ([place] Comment on above: Performed By: #### A DIFF, GFR, BMP, CBC, ANEU #### [address] [address] Platelet 267 10 3/mcL Normal 130-400 [facility] ([place]) Comment on above: Performed By: #### A DIFF, GFR, BMP, CBC, ANEU #### [address] [address] Platelet mean volume (Bld) [Entitic vol] 7.3 fL Low 7.4-10.4 [facility] ([place]) Comment on above: Performed By: #### A DIFF, GFR, BMP, CBC, ANEU #### [address] [address] RBC 3.07 10 6/mcL Low 4.20-5.40 [facility] ([place] Comment on above: Performed By: #### A DIFF, GFR, BMP, CBC, ANEU #### [address] [address] WBC 14.7 10 3/mcL High 4.6-10.8 [facility] ([place] Comment on above: Performed By: #### A DIFF, GFR, BMP, CBC, ANEU #### [address] [address] LABORATORYOrdered By: SYSTEM SYSTEM on 11-26-2023 Basophil, Absolute 0.0 103/mcL Normal 0.0 - 0.2 10^3/mcL AO Workflow SS Basophils/100 WBC (Bld) 0.1 % Normal 0.0 - 2.5 % AO Workflow SS Calcium [Mass/Vol] 8.8 mg/dL Normal 8.4 - 10. 2 mg/dL AO ADM SS Chloride [Moles/Vol] 101 mmol/L Normal 98 - 10 7 mmol/L AO ADM SS CO2 [Moles/Vol] 25 mmol/L Normal 23 - 31 mmol/L AO ADM SS Creatinine [Mass/Vol] 0.87 mg/dL Normal 0.55 - 1.02 mg/dL AO ADM SS Electrolyte Balance 9.0 mEq/L Normal 4.0 - 15 .0 mEq/L AO ADM SS Eosinophil, Absolute 0.0 103/mcL Normal 0.0 - 0 .4 10^3/mcL AO Workflow SS Eosinophils/100 WBC (Bld) 0.0 % Normal 0.0 - 7.0 % AO Workflow SS Erythrocyte distribution width (RBC) [Ratio] 14.4 % Normal 11.5 - 14.5 % AO Workflow SS GFR/1.73 sq M.predicted among blacks MDRD (S/P/Bld) [Vol rate/Area] 76 ml/min/1.73sqm Invalid Interpretation Code AO Chemistry S Comment on above: Interpretive Data: GFR Population mean for , Non- Americans Ages 20-29 = 116 mL/min/1.73 sq.m. Ages 30-39 = 107 mL/min/1.73 sq.m. Ages 40-49 = 99 mL/min/1.73 sq.m. Ages 50-59 = 93 mL/min/1.73 sq.m. Ages 60-69 = 85 mL/min/1.73 sq.m. Ages 70+ = 75 mL/min/1.73 sq.m. Chronic Kidney Disease: Less than 60 mL/min/1.73 square meters End Stage Renal Disease: Less than 15 mL/min/1.73 square meters GFR/1.73 sq M.predicted among non-blacks MDRD (S/P/Bld) [Vol rate/Area] 62 ml/min/1.73sqm Invalid Interpretation Code AO Chemistry S Comment on above: Interpretive Data: GFR Population mean for , Non- Americans Ages 20-29 = 116 mL/min/1.73 sq.m. Ages 30-39 = 107 mL/min/1.73 sq.m. Ages 40-49 = 99 mL/min/1.73 sq.m. Ages 50-59 = 93 mL/min/1.73 sq.m. Ages 60-69 = 85 mL/min/1.73 sq.m. Ages 70+ = 75 mL/min/1.73 sq.m. Chronic Kidney Disease: Less than 60 mL/min/1.73 square meters End Stage Renal Disease: Less than 15 mL/min/1.73 square meters Glucose [Mass/Vol] 102 mg/dL Normal 83 - 110 mg/dL AO ADM SS Hematocrit (Bld) [Volume fraction] 29.4 % Low 37.0 - 47.0 % AO Workflow SS Hemoglobin (Bld) [Mass/Vol] 10.1 G/dL Low 12.0 - 16.0 G/dL AO Workflow SS Lymphocyte, Absolute 1.1 103/mcL Normal 0.8 - 3 .9 10^3/mcL AO Workflow SS Lymphocytes/100 WBC (Bld) 7.3 % Low 10.0 - 50.0 % AO Workflow SS MCH (RBC) [Entitic mass] 32.9 pg High 27.0 - 31.2 pg AO Workflow SS MCHC 34.4 G/dL Normal 33.0 - 37.0 G/dL AO Workflow SS MCV (RBC) [Entitic vol] 95.6 fL High 80.0 - 94.0 fL AO Workflow SS Monocyte, Absolute 1.0 103/mcL Normal 0.2 - 1.0 10^3/mcL AO Workflow SS Monocytes/100 WBC (Bld) 6.8 % Normal 1.7 - 13.0 % AO Workflow SS Neutrophil, Absolute 12.6 103/mcL High 2.9 - 6 .2 10^3/mcL AO Workflow SS Neutrophils/100 WBC (Bld) 85.8 % High 37.0 - 80.0 % AO Workflow SS Platelet mean volume (Bld) [Entitic vol] 7.3 fL Low 7.4 - 10.4 fL AO Workflow SS Platelets (Bld) [#/Vol] 267 103/mcL Normal 130 - 400 10^3/mcL AO Workflow SS Potassium [Moles/Vol] 4.4 mmol/L Normal 3.5 - 5.1 mmol/L AO ADM SS RBC (Bld) [#/Vol] 3.07 106/mcL Low 4.20 - 5.4 0 10^6/mcL AO Workflow SS Sodium [Moles/Vol] 135 mmol/L Low 136 - 145 mmol/L AO ADM SS Urea nitrogen [Mass/Vol] 22 mg/dL High 7 - 18 mg/dL AO ADM SS Urea nitrogen/Creatinine [Mass ratio] 25 ratio Normal 7 - 27 ratio AO ADM SS WBC (Bld) [#/Vol] 14.7 103/mcL High 4.6 - 10.8 10^3/mcL AO Workflow SS Gel ABOon 11-25-2023 ABO/Rh Interp Positive Invalid Interpretation Code [facility] ([place]) Comment on above: Performed By: #### A BOG, ANSG, CBC, ADIFF, ANEU, ALB #### [facility] [address] [place], [place] [address] Gel ABSon 11-25-2023 Antibody Screen Gel Negative Normal [facility] ([place]) Comment on above: Performed By: #### A BOG, ANSG, CBC, ADIFF, ANEU, ALB #### [facility] [address] [place], [place] [address] LABORATORYOrdered By: Tata Seals on 11-25-2023 ABO/Rh Interp Positive Invalid Interpretation Code AO BB SS Antibody Screen Gel Negative ABSC (11/25/23 10:59 AM) Normal AO BB SS XR FLUORO 1-2 HRS TECH TIMEo n 11-25-2023 XR FLUORO 1-2 HRS TECH TIME ORIGINAL Images acquired, not reported on this accession number. Normal [facility] ([place]) XR HIP RIGHT W/PELVIS 4 VIEW Son 11-25-2023 XR HIP RIGHT W/PELVIS 4 VIEWS ORIGINAL EXAMINATION: XRAY VIEWS OF THE RIGHT HIP11/25/2023 3:08 pm HIP UNILATERAL MIN 4V W/PELVIS RIGHT COMPARISON: None HISTORY: ORDERING SYSTEM PROVIDED HISTORY: Reason for Exam: Status Post Arthroplasty FINDINGS: The patient is status post total noncemented right hip arthroplasty with no complicating process. 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 Iliac and pubic bones are intact. No gross sacral or sacroiliac joint abnormality is noted. 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 Interpreted by: Michael Loja Preliminary Report By: Michael Loja Electronically signed By Michael Loja Dictated Date: 11/25/2023 3:22:25 PM Prelim Date: 11/25/2023 3:23:12 PM Sign Date: 11/25/2023 3:23:12 PM Ordering Provider: AMADOR GLORIA Normal [facility] ([place]) Absolute lymphocyte countOrd ered By: Jagdeep Hoffman on 11-20-2023 Lymphocytes Auto (Unsp spec) [#/Vol] 1.15 10*3/uL 0.83-4.51 [facility] Automated lymphocyte count a s percentage of total leukocytesOrdered By: Jagdeep Hoffman on 11-20-2023 Lymphocytes/100 WBC Auto (Unsp spec) 19.4 % 19-41 [facility] Basophil percentageOrdered B y: Jagdeep Hoffman on 11-20-2023 Basophils/100 WBC (Bld) 0.8 % 0-1 [facility] Eosinophils/100 WBC (Bld) 1.7 % 0-5 [facility] Hemoglobin (Bld) [Mass/Vol] 12.4 g/dL 12.0-15.0 [facility] Monocytes/100 WBC (Bld) 8.3 % 0-10 [facility] Neutrophils (Bld) [#/Vol] 4.1 10*3/uL 2.0-7.7 [facility] Neutrophils/100 WBC (Bld) 69.6 % 47-70 [facility] WBC (Bld) [#/Vol] 5.9 10*3/uL 4.4-11.0 [facility] Determination of erythrocyte mean corpuscular volume (MCV)Ordered By: Jagdeep Hoffman on 11-20-2023 MCV (RBC) [Entitic vol] 98.2 fL 81-99 [facility] Erythrocyte distribution wid th ratioOrdered By: Jagdeep Hoffman on 11-20-2023 Erythrocyte distribution width (RBC) [Ratio] 14.2 % 11.6-14.6 [facility] Erythrocyte distribution wid th standard deviationOrdered By: Jagdeep Hoffman on 11-20-2023 Erythrocyte distribution width (RBC) [Entitic vol] 50.8 fL 35.1-43.9 [facility] Hematocrit Auto (Bld) [Volum e fraction]Ordered By: Jagdeep Hoffman on 11-20-2023 Hematocrit (Bld) [Volume fraction] 38.2 % 37-47 [facility] Immature granulocytes/100 WB C Auto (Bld)Ordered By: Jagdeep Hoffman on 11-20-2023 Immature granulocytes/100 WBC (Bld) 0.200 % 0.0-0.9 [facility] Comment on above: IG% - Immature Granu locytes (promyelocytes, myelocytes and metamyelocytes) > 1% indicates that a LEFT SHIFT is Present. Laboratory - Hematology and Cell countsOrdered By: Jagdeep Hoffman on 11-20-2023 MCH (RBC) [Entitic mass] 31.9 pg 27.0-32.0 [facility] MCHC (RBC) [Mass/Vol] 32.5 g/dL 32-36 [facility] Nucleated RBC/100 WBC (Bld) [Ratio] 0 % 0-5 [facility] Platelet mean volume (Bld) [Entitic vol] 9.0 fL 6.2-12.0 [facility] Platelets (Bld) [#/Vol] 334 10*3/uL 150-450 [facility] RBC Auto (Bld) [#/Vol]Ordere d By: Jagdeep Hoffman on 11-20-2023 RBC (Bld) [#/Vol] 3.89 10*6/uL 4.2-5.4 [facility] Thin prep Papanicolaou smear with manual screeningOrdered By: Jagdeep Hoffman on 11-20-2023 Thin prep Papanicolaou smear with manual screening 3.5 g/dL 3.2-5.0 [facility] .Auto Diffon 11-18-2023 Basophil, Absolute 0.0 10 3/mcL Normal 0.0-0.2 [facility] ([place]) Comment on above: Performed By: #### A BOG, ANSG, CBC, ADIFF, ANEU, ALB #### [address] [address] Basophils/100 WBC (Bld) 0.4 % Normal 0.0-2.5 A [facility] ([place]) Comment on above: Performed By: #### A BOG, ANSG, CBC, ADIFF, ANEU, ALB #### [address] [address] Eosinophil, Absolute 0.1 10 3/mcL Normal 0.0-0.4 [facility] ([place]) Comment on above: Performed By: #### A BOG, ANSG, CBC, ADIFF, ANEU, ALB #### [place] [address] [address] Eosinophils/100 WBC (Bld) 1.1 % Normal 0.0-7.0 [facility] ([place] Comment on above: Performed By: #### A BOG, ANSG, CBC, ADIFF, ANEU, ALB #### [address] [address] Lymphocyte, Absolute 1.3 10 3/mcL Normal 0.8-3.9 [facility] ([place] Comment on above: Performed By: #### A BOG, ANSG, CBC, ADIFF, ANEU, ALB #### [address] [address] Lymphocytes/100 WBC (Bld) 14.7 % Normal 10.0-50.0 [facility] ([place] Comment on above: Performed By: #### A BOG, ANSG, CBC, ADIFF, ANEU, ALB #### [address] [address] Monocyte, Absolute 0.8 10 3/mcL Normal 0.2-1.0 [facility] ([place] Comment on above: Performed By: #### A BOG, ANSG, CBC, ADIFF, ANEU, ALB #### [address] [address] Monocytes/100 WBC (Bld) 8.6 % Normal 1.7-13.0 [facility] ([place] Comment on above: Performed By: #### A BOG, ANSG, CBC, ADIFF, ANEU, ALB #### [address] [address] Neutrophils/100 WBC (Bld) 75.2 % Normal 37.0-80.0 [facility] ([place] Comment on above: Performed By: #### A BOG, ANSG, CBC, ADIFF, ANEU, ALB #### [address] [address] .NEUABSon 11-18-2023 Neutrophil, Absolute 6.8 10 3/mcL High 2.9-6.2 [facility] ([place] Comment on above: Performed By: #### A BOG, ANSG, CBC, ADIFF, ANEU, ALB #### [address] [address] ALBon 11-18-2023 Albumin Level 2.0 G/dL Low 3.4-4.8 [facility] ([place]) Comment on above: Performed By: #### A BOG, ANSG, CBC, ADIFF, ANEU, ALB #### [place] [address] CBCon 11-18-2023 Erythrocyte distribution width (RBC) [Ratio] 14.6 % High 11.5-14.5 [facility] ([place] Comment on above: Performed By: #### A BOG, ANSG, CBC, ADIFF, ANEU, ALB #### [place] [address] Hematocrit (Bld) [Volume fraction] 36.5 % Low 37.0-47.0 [facility] ([place] Comment on above: Performed By: #### A BOG, ANSG, CBC, ADIFF, ANEU, ALB #### [address] [address] Hgb 12.5 G/dL Normal 12.0-16.0 [facility] ([place] Comment on above: Performed By: #### A BOG, ANSG, CBC, ADIFF, ANEU, ALB #### [address] [address] MCH (RBC) [Entitic mass] 33.0 pg High 27.0-31.2 [facility] ([place] Comment on above: Performed By: #### A BOG, ANSG, CBC, ADIFF, ANEU, ALB #### [address] [address] MCHC 34.2 G/dL Normal 33.0-37.0 [facility] ([place] Comment on above: Performed By: #### A BOG, ANSG, CBC, ADIFF, ANEU, ALB #### [address] [address] MCV (RBC) [Entitic vol] 96.6 fL High 80.0-94.0 [facility] ([place] Comment on above: Performed By: #### A BOG, ANSG, CBC, ADIFF, ANEU, ALB #### [address] [address] Platelet 345 10 3/mcL Normal 130-400 [facility] ([place] Comment on above: Performed By: #### A BOG, ANSG, CBC, ADIFF, ANEU, ALB #### [address] [address] Platelet mean volume (Bld) [Entitic vol] 7.2 fL Low 7.4-10.4 [facility] ([place] Comment on above: Performed By: #### A BOG, ANSG, CBC, ADIFF, ANEU, ALB #### [address] [address] RBC 3.77 10 6/mcL Low 4.20-5.40 [facility] ([place] Comment on above: Performed By: #### A BOG, ANSG, CBC, ADIFF, ANEU, ALB #### [address] [address] WBC 9.0 10 3/mcL Normal 4.6-10.8 [facility] ([place] Comment on above: Performed By: #### A BOG, ANSG, CBC, ADIFF, ANEU, ALB #### [address] [address] LABORATORYOrdered By: SYSTEM SYSTEM on 11-18-2023 Albumin BCP dye [Mass/Vol] 2.0 G/dL Low 3.4 - 4.8 G/dL AO ADM SS Basophil, Absolute 0.0 103/mcL Normal 0.0 - 0.2 10^3/mcL AO Workflow SS Basophils/100 WBC (Bld) 0.4 % Normal 0.0 - 2.5 % AO Workflow SS Eosinophil, Absolute 0.1 103/mcL Normal 0.0 - 0 .4 10^3/mcL AO Workflow SS Eosinophils/100 WBC (Bld) 1.1 % Normal 0.0 - 7.0 % AO Workflow SS Erythrocyte distribution width (RBC) [Ratio] 14.6 % High 11.5 - 14.5 % AO Workflow SS Hematocrit (Bld) [Volume fraction] 36.5 % Low 37.0 - 47.0 % AO Workflow SS Hemoglobin (Bld) [Mass/Vol] 12.5 G/dL Normal 12.0 - 16.0 G/dL AO Workflow SS Lymphocyte, Absolute 1.3 103/mcL Normal 0.8 - 3 .9 10^3/mcL AO Workflow SS Lymphocytes/100 WBC (Bld) 14.7 % Normal 10.0 - 50.0 % AO Workflow SS MCH (RBC) [Entitic mass] 33.0 pg High 27.0 - 31.2 pg AO Workflow SS MCHC 34.2 G/dL Normal 33.0 - 37.0 G/dL AO Workflow SS MCV (RBC) [Entitic vol] 96.6 fL High 80.0 - 94.0 fL AO Workflow SS Monocyte, Absolute 0.8 103/mcL Normal 0.2 - 1.0 10^3/mcL AO Workflow SS Monocytes/100 WBC (Bld) 8.6 % Normal 1.7 - 13.0 % AO Workflow SS Neutrophil, Absolute 6.8 103/mcL High 2.9 - 6 .2 10^3/mcL AO Workflow SS Neutrophils/100 WBC (Bld) 75.2 % Normal 37.0 - 80.0 % AO Workflow SS Platelet mean volume (Bld) [Entitic vol] 7.2 fL Low 7.4 - 10.4 fL AO Workflow SS Platelets (Bld) [#/Vol] 345 103/mcL Normal 130 - 400 10^3/mcL AO Workflow SS RBC (Bld) [#/Vol] 3.77 106/mcL Low 4.20 - 5.4 0 10^6/mcL AO Workflow SS WBC (Bld) [#/Vol] 9.0 103/mcL Normal 4.6 - 10.8 10^3/mcL AO Workflow SS .Auto Diffon 11-04-2023 Basophil, Absolute 0.0 10 3/mcL Normal 0.0-0.2 [facility] ([place] Comment on above: Performed By: #### A BOG, ANSG, CBC, ADIFF, ANEU, ALB #### [place] [id number] [place], [place] [address] Basophils/100 WBC (Bld) 0.5 % Normal 0.0-2.5 [facility] ([place] Comment on above: Performed By: #### A BOG, ANSG, CBC, ADIFF, ANEU, ALB #### [address] [address] Eosinophil, Absolute 0.1 10 3/mcL Normal 0.0-0.4 [facility] ([place]) Comment on above: Performed By: #### A BOG, ANSG, CBC, ADIFF, ANEU, ALB #### [address] [address] Eosinophils/100 WBC (Bld) 1.0 % Normal 0.0-7.0 [facility] ([place] Comment on above: Performed By: #### A BOG, ANSG, CBC, ADIFF, ANEU, ALB #### [address] [address] Lymphocyte, Absolute 1.1 10 3/mcL Normal 0.8-3.9 [facility] ([place] Comment on above: Performed By: #### A BOG, ANSG, CBC, ADIFF, ANEU, ALB #### [address] [address] Lymphocytes/100 WBC (Bld) 14.0 % Normal 10.0-50.0 [facility] ([place] Comment on above: Performed By: #### A BOG, ANSG, CBC, ADIFF, ANEU, ALB #### [address] [address] Monocyte, Absolute 0.8 10 3/mcL Normal 0.2-1.0 [facility] ([place]) Comment on above: Performed By: #### A BOG, ANSG, CBC, ADIFF, ANEU, ALB #### [address] [address] Monocytes/100 WBC (Bld) 10.1 % Normal 1.7-13.0 [facility] ([place] Comment on above: Performed By: #### A BOG, ANSG, CBC, ADIFF, ANEU, ALB #### [address] [address] Neutrophils/100 WBC (Bld) 74.4 % Normal 37.0-80.0 [facility] ([place] Comment on above: Performed By: #### A BOG, ANSG, CBC, ADIFF, ANEU, ALB #### [place] [id number] [place], [place] [address] .GFRon 11-04-2023 GFR 104 ml/min/1.73sqm Normal [facility] ([place] Comment on above: Result Comment: GFR Population mean for , Non- Americans Ages 20-29 = 116 mL/min/1.73 sq.m. Ages 30-39 = 107 mL/min/1.73 sq.m. Ages 40-49 = 99 mL/min/1.73 sq.m. Ages 50-59 = 93 mL/min/1.73 sq.m. Ages 60-69 = 85 mL/min/1.73 sq.m. Ages 70+ = 75 mL/min/1.73 sq.m. Chronic Kidney Disease: Less than 60 mL/min/1.73 square meters End Stage Renal Disease: Less than 15 mL/min/1.73 square meters Performed By: #### A BOG, ANSG, CBC, ADIFF, ANEU, ALB #### [address] [address] GFR Non- 86 ml/min/1.73sqm Normal [facility] ([place] Comment on above: Result Comment: GFR Population mean for , Non- Americans Ages 20-29 = 116 mL/min/1.73 sq.m. Ages 30-39 = 107 mL/min/1.73 sq.m. Ages 40-49 = 99 mL/min/1.73 sq.m. Ages 50-59 = 93 mL/min/1.73 sq.m. Ages 60-69 = 85 mL/min/1.73 sq.m. Ages 70+ = 75 mL/min/1.73 sq.m. Chronic Kidney Disease: Less than 60 mL/min/1.73 square meters End Stage Renal Disease: Less than 15 mL/min/1.73 square meters Performed By: #### A BOG, ANSG, CBC, ADIFF, ANEU, ALB #### [address] [address] .NEUABSon 11-04-2023 Neutrophil, Absolute 5.8 10 3/mcL Normal 2.9-6.2 [facility] ([place] Comment on above: Performed By: #### A BOG, ANSG, CBC, ADIFF, ANEU, ALB #### [place] [id number] ALBon 11-04-2023 Albumin Level 3.2 G/dL Low 3.4-4.8 [facility] ([place] Comment on above: Performed By: #### A BOG, ANSG, CBC, ADIFF, ANEU, ALB #### [place] [address] CBCon 11-04-2023 Erythrocyte distribution width (RBC) [Ratio] 14.6 % High 11.5-14.5 [facility] ([place] Comment on above: Order Comment: Pre-A dmission Testing Performed By: #### A BOG, ANSG, CBC, ADIFF, ANEU, ALB #### [place] [address] Hematocrit (Bld) [Volume fraction] 36.5 % Low 37.0-47.0 [facility] ([place]) Comment on above: Order Comment: Pre-A dmission Testing Performed By: #### A BOG, ANSG, CBC, ADIFF, ANEU, ALB #### [place] [id number] Hgb 12.5 G/dL Normal 12.0-16.0 [facility] ([place]) Comment on above: Order Comment: Pre-A dmission Testing Performed By: #### A BOG, ANSG, CBC, ADIFF, ANEU, ALB #### [place] [id number] MCH (RBC) [Entitic mass] 32.7 pg High 27.0-31.2 [facility] ([place] Comment on above: Order Comment: Pre-A dmission Testing Performed By: #### A BOG, ANSG, CBC, ADIFF, ANEU, ALB #### [address] [id number] MCHC 34.2 G/dL Normal 33.0-37.0 [facility] ([place] Comment on above: Order Comment: Pre-A dmission Testing Performed By: #### A BOG, ANSG, CBC, ADIFF, ANEU, ALB #### [address] [address] MCV (RBC) [Entitic vol] 95.6 fL High 80.0-94.0 [facility] ([place]) Comment on above: Order Comment: Pre-A dmission Testing Performed By: #### A BOG, ANSG, CBC, ADIFF, ANEU, ALB #### [address] [address] Platelet 351 10 3/mcL Normal 130-400 [facility] ([place]) Comment on above: Order Comment: Pre-A dmission Testing Performed By: #### A BOG, ANSG, CBC, ADIFF, ANEU, ALB #### [address] [address] Platelet mean volume (Bld) [Entitic vol] 7.2 fL Low 7.4-10.4 [facility] ([place]) Comment on above: Order Comment: Pre-A dmission Testing Performed By: #### A BOG, ANSG, CBC, ADIFF, ANEU, ALB #### [address] [address] RBC 3.82 10 6/mcL Low 4.20-5.40 [facility] ([place]) Comment on above: Order Comment: Pre-A dmission Testing Performed By: #### A BOG, ANSG, CBC, ADIFF, ANEU, ALB #### [address] [address] WBC 7.8 10 3/mcL Normal 4.6-10.8 [facility] ([place]) Comment on above: Order Comment: Pre-A dmission Testing Performed By: #### A BOG, ANSG, CBC, ADIFF, ANEU, ALB #### [address] [address] CMPon 11-04-2023 Albumin Level 3.1 G/dL Low 3.4-4.8 [facility] ([place]) Comment on above: Performed By: #### A BOG, ANSG, CBC, ADIFF, ANEU, ALB #### [address] [address] Albumin/Globulin [Mass ratio] 1.0 {ratio} Low 1.1-2.5 [facility] ([place]) Comment on above: Performed By: #### A BOG, ANSG, CBC, ADIFF, ANEU, ALB #### [address] [address] ALP [Catalytic activity/Vol] 69 U/L Normal 40-135 [facility] ([place]) Comment on above: Performed By: #### A BOG, ANSG, CBC, ADIFF, ANEU, ALB #### [address] [address] ALT [Catalytic activity/Vol] 16 U/L Normal 14-59 [facility] ([place] Comment on above: Performed By: #### A BOG, ANSG, CBC, ADIFF, ANEU, ALB #### [address] [address] AST [Catalytic activity/Vol] 16 U/L Normal 10-40 [facility] ([place]) Comment on above: Performed By: #### A BOG, ANSG, CBC, ADIFF, ANEU, ALB #### [address] [address] Bili Total 0.4 mg/dL Normal 0.2-1.0 [facility] ([place]) Comment on above: Result Comment: Use of this assay is not recommended for patients undergoing treatment with eltrombopag due to the potential for falsely elevated results. Performed By: #### A BOG, ANSG, CBC, ADIFF, ANEU, ALB #### [address] [address] BUN/Creatinine Ratio 27 ratio Normal 7-27 [facility] ([place]) Comment on above: Performed By: #### A BOG, ANSG, CBC, ADIFF, ANEU, ALB #### [address] [address] Calcium [Mass/Vol] 8.7 mg/dL Normal 8.4-10.2 [facility] ([place]) Comment on above: Performed By: #### A BOG, ANSG, CBC, ADIFF, ANEU, ALB #### [address] [address] Chloride [Moles/Vol] 99 mmol/L Normal 98-107 [facility] ([place]) Comment on above: Performed By: #### A BOG, ANSG, CBC, ADIFF, ANEU, ALB #### [address] [address] CO2 [Moles/Vol] 27 mmol/L Normal 23-31 [facility] ([place]) Comment on above: Performed By: #### A BOG, ANSG, CBC, ADIFF, ANEU, ALB #### [address] [address] Creatinine [Mass/Vol] 0.66 mg/dL Normal 0.55-1.02 [facility] ([place]) Comment on above: Performed By: #### A BOG, ANSG, CBC, ADIFF, ANEU, ALB #### [address] [address] Electrolyte Balance 12.0 mEq/L Normal 4.0-15.0 [facility] ([place] Comment on above: Performed By: #### A BOG, ANSG, CBC, ADIFF, ANEU, ALB #### [address] [address] Globulin 3.2 G/dL Normal [facility] ([place]) Comment on above: Performed By: #### A BOG, ANSG, CBC, ADIFF, ANEU, ALB #### [address] [address] Glucose [Mass/Vol] 90 mg/dL Normal 83-110 [facility] ([place] Comment on above: Performed By: #### A BOG, ANSG, CBC, ADIFF, ANEU, ALB #### [address] [address] Potassium [Moles/Vol] 4.8 mmol/L Normal 3.5-5.1 [facility] ([place]) Comment on above: Performed By: #### A BOG, ANSG, CBC, ADIFF, ANEU, ALB #### [address] [address] Sodium [Moles/Vol] 138 mmol/L Normal 136-145 [facility] ([place] Comment on above: Performed By: #### A BOG, ANSG, CBC, ADIFF, ANEU, ALB #### [address] [address] Total Protein 6.3 G/dL Low 6.4-8.2 [facility] ([place]) Comment on above: Performed By: #### A BOG, ANSG, CBC, ADIFF, ANEU, ALB #### [address] [address] Urea nitrogen [Mass/Vol] 18 mg/dL Normal 7-18 [facility] ([place] Comment on above: Performed By: #### A BOG, ANSG, CBC, ADIFF, ANEU, ALB #### [address] [address] Gel ABOon 11-04-2023 ABO/Rh Interp Positive Invalid Interpretation Code [facility] ([place]) Comment on above: Performed By: #### A BOG, ANSG, CBC, ADIFF, ANEU, ALB #### [address] [address] Gel ABSon 11-04-2023 Antibody Screen Gel Negative Normal [facility] ([place]) Comment on above: Performed By: #### A BOG, ANSG, CBC, ADIFF, ANEU, ALB #### [address] [address] MRSAPCRon 11-04-2023 MRSA (PCR) Not detected Normal Not Detected [facility] ([place]) Comment on above: Result Comment: Note s Performed By: #### A BOG, ANSG, CBC, ADIFF, ANEU, ALB #### [facility] [address] [place], [place] [address] MRSA PCR Int Normal [facility] ([place]) Comment on above: Result Comment: MRSA DNA not detected by Real-Time Polymerase Chain Reaction (PCR). A negative result may be due to intermittent colonization. Colonization may vary depending on patient treatment, patient status, or exposure to high-risk environments. As with all PCR based in vitro diagnostic tests, extremely low levels of target below the limit of detection of the assay may be detected, but results may not be reproducible. See Below Performed By: #### A BOG, ANSG, CBC, ADIFF, ANEU, ALB #### [id number] [place], [place] [address] Absolute lymphocyte countOrd ered By: Allen Morin on 09-22-2023 Lymphocytes Auto (Unsp spec) [#/Vol] 1.92 10*3/uL 0.83-4.51 [facility] Basophil percentageOrdered B y: Allen Morin on 09-22-2023 Basophils/100 WBC (Bld) 0.7 % 0-1 [facility] Bilirubin [Mass/Vol] 0.50 mg/dL 0.20-1.00 [facility] Comment on above: For patients on eltr ombopag therapy, use of Dimension [place] TBIL is not recommended. Chloride [Moles/Vol] 102 mmol/L 98-107 [facility] Eosinophils/100 WBC (Bld) 1.3 % 0-5 [facility] Glucose [Mass/Vol] 99 mg/dL 74-106 [facility] Neutrophils (Bld) [#/Vol] 7.5 10*3/uL 2.0-7.7 [facility] Neutrophils/100 WBC (Bld) 71.3 % 47-70 [facility] Potassium [Moles/Vol] 4.0 mmol/L 3.5-5.1 [facility] Protein [Mass/Vol] 6.7 g/dL 6.4-8.2 [facility] Sodium [Moles/Vol] 136 mmol/L 136-145 [facility] WBC (Bld) [#/Vol] 10.4 10*3/uL 4.4-11.0 [facility] Blood erythrocytes count (nu mber/volume)Ordered By: Allen Morin on 09-22-2023 RBC (Bld) [#/Vol] 3.76 10*6/uL 4.2-5.4 [facility] Blood hemoglobin measurement (mass/volume)Ordered By: Allen Morin on 09-22-2023 Hemoglobin (Bld) [Mass/Vol] 11.9 g/dL 12.0-15.0 [facility] Blood lymphocytes/100 leukoc ytesOrdered By: Allen Morin on 09-22-2023 Lymphocytes/100 WBC (Bld) 18.4 % 19-41 [facility] Blood monocytes/100 leukocyt esOrdered By: Allen Mikel on 09-22-2023 Monocytes/100 WBC (Bld) 7.8 % 0-10 [facility] Blood platelet mean volumeOr dered By: Allen Morin on 09-22-2023 Platelet mean volume (Bld) [Entitic vol] 9.4 fL 6.2-12.0 [facility] Determination of erythrocyte mean corpuscular volume (MCV)Ordered By: Allen Morin on 09-22-2023 MCV (RBC) [Entitic vol] 98.1 fL 81-99 [facility] Hematocrit Auto (Bld) [Volum e fraction]Ordered By: Allen Morin on 09-22-2023 Hematocrit (Bld) [Volume fraction] 36.9 % 37-47 [facility] Laboratory - Chemistry and C hemistry - challengeOrdered By: Allen Morin on 09-22-2023 ALP [Catalytic activity/Vol] 76 U/L 45-117 [facility] ALT [Catalytic activity/Vol] 15 U/L 13-56 [facility] CO2 [Moles/Vol] 27.0 mmol/L 21.0-32.0 [facility] Globulin (S) [Mass/Vol] 3.4 g/dL 2.2-4.2 [facility] Urea nitrogen/Creatinine [Mass ratio] 11.0 mg/mg 10-20 [facility] - Hematology and Cell countsOrdered By: Allen Morin on 09-22-2023 Erythrocyte distribution width (RBC) [Entitic vol] 50.1 fL 35.1-43.9 [facility] Erythrocyte distribution width (RBC) [Ratio] 14.0 % 11.6-14.6 [facility] Immature granulocytes/100 WBC (Bld) 0.500 % 0.0-0.9 [facility] Comment on above: IG% - Immature Granu locytes (promyelocytes, myelocytes and metamyelocytes) > 1% indicates that a LEFT SHIFT is Present. MCH (RBC) [Entitic mass] 31.6 pg 27.0-32.0 [facility] Nucleated RBC/100 WBC (Bld) [Ratio] 0 % 0-5 [facility] MCHC Auto (RBC) [Mass/Vol]Or dered By: Allen Morin on 09-22-2023 MCHC (RBC) [Mass/Vol] 32.2 g/dL 32-36 [facility] No Panel InformationOrdered By: Allen Morin on 09-22-2023 Estimated GFR (MDRD) Amer 62 mL/min >60 [facility] Comment on above: GFR Calc Estimated GFR (MDRD) Non-Af Amer 51 mL/min >60 [facility] Comment on above: Non- GFR Calc Thyroid Stimulating Hormone (TSH) 1.46 uIU/mL 0.358-3.74 [facility] Vitamin D 25-Hydroxy 30.7 ng/mL [facility] Comment on above: Vitamin D 25(OH) Sta tus Range Deficiency <20 ng/mL (50nmol/L) Insufficiency 20 - 30 ng/mL (50 - 75 nmol/L) Sufficiency 30 - 100 ng/mL (75 - 250 nmol/L) Toxicity >100 ng/mL (>250 nmol/L) Platelets bldOrdered By: Allen Morin on 09-22-2023 Platelets (Bld) [#/Vol] 343 10*3/uL 150-450 [facility] Serum or plasma albumin amanda urement (mass/volume)Ordered By: Allen Morin on 09-22-2023 Albumin [Mass/Vol] 3.3 g/dL 3.2-5.0 [facility] Serum or plasma albumin/glob ulin mass ratioOrdered By: Allen Morin 09-22-2023 Albumin/Globulin [Mass ratio] 1.0 {ratio} 0.9-2.4 [facility] Serum or plasma calcium amanda urement (mass/volume)Ordered By: Allen Morin on 09-22-2023 Calcium [Mass/Vol] 8.7 mg/dL 8.5-10.1 [facility] Serum or plasma creatinine m easurement (mass/volume)Ordered By: Allen Morin on 09-22-2023 Creatinine [Mass/Vol] 1.09 mg/dL 0.55-1.02 [facility] Comment on above: The validity of the calculated GFR & GFRAA in patients over 70 years has not been determined. Clinical correlation is essential. Serum or plasma urea nitroge n measurement (mass/volume)Ordered By: Allen Morin on 09-22-2023 Urea nitrogen [Mass/Vol] 12 mg/dL 7-18 [facility] Thin prep Papanicolaou smear with manual screeningOrdered By: Allen Morin on 09-22-2023 Thin prep Papanicolaou smear with manual screening 21 U/L 15-37 [facility] Thin prep Papanicolaou smear with manual screening 7 5-15 [facility] Absolute lymphocyte countOrd ered By: Danette Brooks on 08-14-2023 Lymphocytes Auto (Unsp spec) [#/Vol] 2.11 10*3/uL 0.83-4.51 [facility] Basophil percentageOrdered B y: Danette Brooks on 08-14-2023 Basophils/100 WBC (Bld) 0.7 % 0-1 [facility] Bilirubin [Mass/Vol] 0.40 mg/dL 0.20-1.00 [facility] Comment on above: For patients on eltr ombopag therapy, use of Dimension [place] TBIL is not recommended. Chloride [Moles/Vol] 101 mmol/L 98-107 [facility] Eosinophils/100 WBC (Bld) 1.0 % 0-5 [facility] Glucose [Mass/Vol] 101 mg/dL 74-106 [facility] Comment on above: Fasting Glucose resu lt from 100 to 125 mg/dL suggests IMPAIRED HOMEOSTASIS per A.D.A. criteria. Neutrophils (Bld) [#/Vol] 7.9 10*3/uL 2.0-7.7 [facility] Neutrophils/100 WBC (Bld) 71.7 % 47-70 [facility] Potassium [Moles/Vol] 3.6 mmol/L 3.5-5.1 [facility] Protein [Mass/Vol] 6.9 g/dL 6.4-8.2 [facility] Sodium [Moles/Vol] 135 mmol/L 136-145 [facility] WBC (Bld) [#/Vol] 11.0 10*3/uL 4.4-11.0 [facility] Blood erythrocytes count (nu mber/volume)Ordered By: Danette Brooks on 08-14-2023 RBC (Bld) [#/Vol] 3.94 10*6/uL 4.2-5.4 [facility] Blood hemoglobin measurement (mass/volume)Ordered By: Danette Brooks on 08-14-2023 Hemoglobin (Bld) [Mass/Vol] 12.4 g/dL 12.0-15.0 [facility] Blood lymphocytes/100 leukoc ytesOrdered By: Danette Brooks on 08-14-2023 Lymphocytes/100 WBC (Bld) 19.1 % 19-41 [facility] Blood monocytes/100 leukocyt esOrdered By: Danette Brooks on 08-14-2023 Monocytes/100 WBC (Bld) 7.1 % 0-10 [facility] Blood platelet mean volumeOr dered By: Danette Brooks on 08-14-2023 Platelet mean volume (Bld) [Entitic vol] 8.9 fL 6.2-12.0 [facility] Determination of erythrocyte mean corpuscular volume (MCV)Ordered By: Danette Brooks on 08-14-2023 MCV (RBC) [Entitic vol] 98.5 fL 81-99 [facility] Hematocrit Auto (Bld) [Volum e fraction]Ordered By: Danette Brooks on 08-14-2023 Hematocrit (Bld) [Volume fraction] 38.8 % 37-47 [facility] Laboratory - Chemistry and C hemistry - challengeOrdered By: Danette Brooks on 08-14-2023 ALP [Catalytic activity/Vol] 75 U/L 45-117 [facility] ALT [Catalytic activity/Vol] 20 U/L 13-56 [facility] CO2 [Moles/Vol] 27.0 mmol/L 21.0-32.0 [facility] Globulin (S) [Mass/Vol] 3.6 g/dL 2.2-4.2 [facility] Urea nitrogen/Creatinine [Mass ratio] 15.6 mg/mg 10-20 [facility] - Hematology and Cell countsOrdered By: Danette Brooks on 08-14-2023 Erythrocyte distribution width (RBC) [Entitic vol] 50.4 fL 35.1-43.9 [facility] Erythrocyte distribution width (RBC) [Ratio] 14.0 % 11.6-14.6 [facility] Immature granulocytes/100 WBC (Bld) 0.400 % 0.0-0.9 [facility] Comment on above: IG% - Immature Granu locytes (promyelocytes, myelocytes and metamyelocytes) > 1% indicates that a LEFT SHIFT is Present. MCH (RBC) [Entitic mass] 31.5 pg 27.0-32.0 [facility] Nucleated RBC/100 WBC (Bld) [Ratio] 0 % 0-5 [facility] MCHC Auto (RBC) [Mass/Vol]Or dered By: Danette Brooks on 08-14-2023 MCHC (RBC) [Mass/Vol] 32.0 g/dL 32-36 [facility] No Panel InformationOrdered By: Danette Brooks on 08-14-2023 Estimated Creatinine Clearance Calc 38.10 ml/min [facility] Estimated GFR (MDRD) Amer 93 mL/min >60 [facility] Comment on above: GFR Calc Estimated GFR (MDRD) Non-Af Amer 77 mL/min >60 [facility] Comment on above: Non- GFR Calc Platelets bldOrdered By: Georgi Brooks on 08-14-2023 Platelets (Bld) [#/Vol] 387 10*3/uL 150-450 [facility] Serum or plasma albumin amanda urement (mass/volume)Ordered By: Danette Brooks on 08-14-2023 Albumin [Mass/Vol] 3.3 g/dL 3.2-5.0 [facility] Serum or plasma albumin/glob ulin mass ratioOrdered By: Danette Brooks on 08-14-2023 Albumin/Globulin [Mass ratio] 0.9 {ratio} 0.9-2.4 [facility] Serum or plasma calcium amanda urement (mass/volume)Ordered By: Danette Brooks on 08-14-2023 Calcium [Mass/Vol] 9.1 mg/dL 8.5-10.1 [facility] Serum or plasma creatinine m easurement (mass/volume)Ordered By: Danette Brooks on 08-14-2023 Creatinine [Mass/Vol] 0.77 mg/dL 0.55-1.02 [facility] Comment on above: The validity of the calculated GFR & GFRAA in patients over 70 years has not been determined. Clinical correlation is essential. Serum or plasma urea nitroge n measurement (mass/volume)Ordered By: Danette Brooks on 08-14-2023 Urea nitrogen [Mass/Vol] 12 mg/dL 7-18 [facility] Thin prep Papanicolaou smear with manual screeningOrdered By: Danette Brooks on 08-14-2023 Thin prep Papanicolaou smear with manual screening 13 U/L 15-37 [facility] Thin prep Papanicolaou smear with manual screening 7 5-15 [facility] Absolute lymphocyte countOrd ered By: Danette Brooks on 05-15-2023 Lymphocytes Auto (Unsp spec) [#/Vol] 2.07 10*3/uL 0.83-4.51 [facility] Basophil percentageOrdered B y: Danette Brooks on 05-15-2023 Basophils/100 WBC (Bld) 0.5 % 0-1 [facility] Bilirubin [Mass/Vol] 0.30 mg/dL 0.20-1.00 [facility] Comment on above: For patients on eltr ombopag therapy, use of Dimension [place] TBIL is not recommended. Chloride [Moles/Vol] 101 mmol/L 98-107 [facility] Eosinophils/100 WBC (Bld) 1.3 % 0-5 [facility] Glucose [Mass/Vol] 95 mg/dL 74-106 [facility] Neutrophils (Bld) [#/Vol] 6.4 10*3/uL 2.0-7.7 [facility] Neutrophils/100 WBC (Bld) 69.5 % 47-70 [facility] Potassium [Moles/Vol] 4.1 mmol/L 3.5-5.1 [facility] Protein [Mass/Vol] 6.6 g/dL 6.4-8.2 [facility] Sodium [Moles/Vol] 132 mmol/L 136-145 [facility] WBC (Bld) [#/Vol] 9.2 10*3/uL 4.4-11.0 [facility] Blood erythrocytes count (nu mber/volume)Ordered By: Danette Boroks on 05-15-2023 RBC (Bld) [#/Vol] 3.72 10*6/uL 4.2-5.4 [facility] Blood hemoglobin measurement (mass/volume)Ordered By: Danette Brooks on 05-15-2023 Hemoglobin (Bld) [Mass/Vol] 12.3 g/dL 12.0-15.0 [facility] Blood lymphocytes/100 leukoc ytesOrdered By: Danette Brooks on 05-15-2023 Lymphocytes/100 WBC (Bld) 22.4 % 19-41 [facility] Blood monocytes/100 leukocyt esOrdered By: Danette Brooks on 05-15-2023 Monocytes/100 WBC (Bld) 6.0 % 0-10 [facility] Blood platelet mean volumeOr dered By: Danette Brooks on 05-15-2023 Platelet mean volume (Bld) [Entitic vol] 8.7 fL 6.2-12.0 [facility] Determination of erythrocyte mean corpuscular volume (MCV)Ordered By: Danette Brooks on 05-15-2023 MCV (RBC) [Entitic vol] 96.2 fL 81-99 [facility] Hematocrit Auto (Bld) [Volum e fraction]Ordered By: Danette Brooks on 05-15-2023 Hematocrit (Bld) [Volume fraction] 35.8 % 37-47 [facility] Laboratory - Chemistry and C hemistry - challengeOrdered By: Danette Brooks on 08-03-2023 ALP [Catalytic activity/Vol] 67 U/L 45-117 [facility] ALT [Catalytic activity/Vol] 21 U/L 13-56 [facility] CO2 [Moles/Vol] 26.0 mmol/L 21.0-32.0 [facility] Globulin (S) [Mass/Vol] 3.5 g/dL 2.2-4.2 [facility] Urea nitrogen/Creatinine [Mass ratio] 16.9 mg/mg 10-20 [facility] - Hematology and Cell countsOrdered By: Danette Brooks on 05-15-2023 Erythrocyte distribution width (RBC) [Entitic vol] 48.5 fL 35.1-43.9 [facility] Erythrocyte distribution width (RBC) [Ratio] 13.9 % 11.6-14.6 [facility] Immature granulocytes/100 WBC (Bld) 0.300 % 0.0-0.9 [facility] Comment on above: IG% - Immature Granu locytes (promyelocytes, myelocytes and metamyelocytes) > 1% indicates that a LEFT SHIFT is Present. MCH (RBC) [Entitic mass] 33.1 pg 27.0-32.0 [facility] Nucleated RBC/100 WBC (Bld) [Ratio] 0 % 0-5 [facility] MCHC Auto (RBC) [Mass/Vol]Or dered By: Danette Brooks on 05-15-2023 MCHC (RBC) [Mass/Vol] 34.4 g/dL 32-36 [facility] No Panel InformationOrdered By: Danette Brooks on 05-15-2023 Estimated GFR (MDRD) Amer 92 mL/min >60 [facility] Comment on above: GFR Calc Estimated GFR (MDRD) Non-Af Amer 76 mL/min >60 [facility] Comment on above: Non- GFR Calc Platelets bldOrdered By: Georgi Brooks on 05-15-2023 Platelets (Bld) [#/Vol] 311 10*3/uL 150-450 [facility] Serum or plasma albumin amanda urement (mass/volume)Ordered By: Danette Brooks on 05-15-2023 Albumin [Mass/Vol] 3.1 g/dL 3.2-5.0 [facility] Serum or plasma albumin/glob ulin mass ratioOrdered By: Danette Brooks on 05-15-2023 Albumin/Globulin [Mass ratio] 0.9 {ratio} 0.9-2.4 [facility] Serum or plasma calcium amanda urement (mass/volume)Ordered By: Danette Brooks on 05-15-2023 Calcium [Mass/Vol] 8.7 mg/dL 8.5-10.1 [facility] Serum or plasma creatinine m easurement (mass/volume)Ordered By: Danette Brooks on 05-15-2023 Creatinine [Mass/Vol] 0.77 mg/dL 0.55-1.02 [facility] Comment on above: The validity of the calculated GFR & GFRAA in patients over 70 years has not been determined. Clinical correlation is essential. Serum or plasma urea nitroge n measurement (mass/volume)Ordered By: Danette Brooks on 05-15-2023 Urea nitrogen [Mass/Vol] 13 mg/dL 7-18 [facility] Thin prep Papanicolaou smear with manual screeningOrdered By: Danette Brooks on 05-15-2023 Thin prep Papanicolaou smear with manual screening 20 U/L 15-37 [facility] Thin prep Papanicolaou smear with manual screening 5 5-15 [facility] Erythrocyte sedimentation ra teOrdered By: Dr. Brooks on 02-24-2023 ESR (Bld) [Velocity] 8 mm/h 0-30 [facility] Serum or plasma C reactive p rotein measurement (mass/volume)Ordered By: Dr. Brooks on 02-24-2023 CRP [Mass/Vol] 3.02 mg/L 0.0-3.0 [facility] Comment on above: C-Reactive Protein ( CRP) provides useful information for thediagnosis, therapy and monitoring of inflammatory processesand associated diseases. For the evaluation of Relative Riskfor Cardiovascular Disease, a High Sensitivity CRP (HSCRP)should be ordered. Absolute lymphocyte countOrd ered By: Dr. Brooks on 02-13-2023 Lymphocytes Auto (Unsp spec) [#/Vol] 1.89 10*3/uL 0.83-4.51 [facility] Basophil percentageOrdered B y: Dr. Brooks on 02-13-2023 Basophils/100 WBC (Bld) 0.7 % 0-1 [facility] Bilirubin [Mass/Vol] 0.50 mg/dL 0.20-1.00 [facility] Comment on above: For patients on eltr ombopag therapy, use of Dimension [place] TBIL is not recommended. Chloride [Moles/Vol] 102 mmol/L 98-107 [facility] Eosinophils/100 WBC (Bld) 1.4 % 0-5 [facility] Glucose [Mass/Vol] 83 mg/dL 74-106 [facility] Neutrophils (Bld) [#/Vol] 5.9 10*3/uL 2.0-7.7 [facility] Neutrophils/100 WBC (Bld) 67.7 % 47-70 [facility] Potassium [Moles/Vol] 4.2 mmol/L 3.5-5.1 [facility] Protein [Mass/Vol] 6.6 g/dL 6.4-8.2 [facility] Sodium [Moles/Vol] 137 mmol/L 136-145 [facility] WBC (Bld) [#/Vol] 8.7 10*3/uL 4.4-11.0 [facility] Blood erythrocytes count (nu mber/volume)Ordered By: Dr. Brooks on 02-13-2023 RBC (Bld) [#/Vol] 3.99 10*6/uL 4.2-5.4 [facility] Blood hemoglobin measurement (mass/volume)Ordered By: Dr. Brooks on 02-13-2023 Hemoglobin (Bld) [Mass/Vol] 12.8 g/dL 12.0-15.0 [facility] Blood lymphocytes/100 leukoc ytesOrdered By: Dr. Brooks on 02-13-2023 Lymphocytes/100 WBC (Bld) 21.8 % 19-41 [facility] Blood monocytes/100 leukocyt esOrdered By: Dr. Brooks on 02-13-2023 Monocytes/100 WBC (Bld) 8.1 % 0-10 [facility] Blood platelet mean volumeOr dered By: Dr. Brooks on 02-13-2023 Platelet mean volume (Bld) [Entitic vol] 9.0 fL 6.2-12.0 [facility] Determination of erythrocyte mean corpuscular volume (MCV)Ordered By: Dr. Brooks on 02-13-2023 MCV (RBC) [Entitic vol] 97.7 fL 81-99 [facility] Hematocrit Auto (Bld) [Volum e fraction]Ordered By: Dr. Brooks on 02-13-2023 Hematocrit (Bld) [Volume fraction] 39.0 % 37-47 [facility] - Chemistry and C hemistry - challengeOrdered By: Dr. Brooks on 02-13-2023 ALP [Catalytic activity/Vol] 68 U/L 45-117 [facility] ALT [Catalytic activity/Vol] 18 U/L 13-56 [facility] CO2 [Moles/Vol] 29.0 mmol/L 21.0-32.0 [facility] Globulin (S) [Mass/Vol] 3.4 g/dL 2.2-4.2 [facility] Urea nitrogen/Creatinine [Mass ratio] 14.0 mg/mg 10-20 [facility] [facility] - Hematology and Cell countsOrdered By: Dr. Brooks on 02-13-2023 Erythrocyte distribution width (RBC) [Entitic vol] 52.7 fL 35.1-43.9 [facility] Erythrocyte distribution width (RBC) [Ratio] 14.7 % 11.6-14.6 [facility] Immature granulocytes/100 WBC (Bld) 0.300 % 0.0-0.9 [facility] Comment on above: IG% - Immature Granu locytes (promyelocytes, myelocytes and metamyelocytes) > 1% indicates that a LEFT SHIFT is Present. MCH (RBC) [Entitic mass] 32.1 pg 27.0-32.0 [facility] Nucleated RBC/100 WBC (Bld) [Ratio] 0 % 0-5 [facility] MCHC Auto (RBC) [Mass/Vol]Or dered By: Dr. Brooks on 02-13-2023 MCHC (RBC) [Mass/Vol] 32.8 g/dL 32-36 [facility] No Panel InformationOrdered By: Dr. Brooks on 02-13-2023 Estimated GFR (MDRD) Amer 75 mL/min >60 [facility] Comment on above: GFR Calc Estimated GFR (MDRD) Non-Af Amer 62 mL/min >60 [facility] Comment on above: Non- GFR Calc Platelets bldOrdered By: Dr. Brooks on 02-13-2023 Platelets (Bld) [#/Vol] 349 10*3/uL 150-450 [facility] Serum or plasma albumin amanda urement (mass/volume)Ordered By: Dr. Brooks on 02-13-2023 Albumin [Mass/Vol] 3.2 g/dL 3.2-5.0 [facility] Serum or plasma albumin/glob ulin mass ratioOrdered By: Dr. Brooks on 02-13-2023 Albumin/Globulin [Mass ratio] 0.9 {ratio} 0.9-2.4 [facility] Serum or plasma calcium amanda urement (mass/volume)Ordered By: Dr. Brooks on 02-13-2023 Calcium [Mass/Vol] 8.9 mg/dL 8.5-10.1 [facility] Serum or plasma creatinine m easurement (mass/volume)Ordered By: Dr. Brooks on 02-13-2023 Creatinine [Mass/Vol] 0.93 mg/dL 0.55-1.02 [facility] Comment on above: The validity of the calculated GFR & GFRAA in patients over 70 years has not been determined. Clinical correlation is essential. Serum or plasma urea nitroge n measurement (mass/volume)Ordered By: Dr. Brooks on 02-13-2023 Urea nitrogen [Mass/Vol] 13 mg/dL 7-18 [facility] Thin prep Papanicolaou smear with manual screeningOrdered By: Dr. Brooks on 02-13-2023 Thin prep Papanicolaou smear with manual screening 17 U/L 15-37 [facility] Thin prep Papanicolaou smear with manual screening 6 5-15 [facility] Absolute lymphocyte countOrd ered By: Dr. Brooks on 11-14-2022 Lymphocytes Auto (Unsp spec) [#/Vol] 2.06 10*3/uL 0.83-4.51 [facility] Basophil percentageOrdered B y: Dr. Brooks on 11-14-2022 Basophils/100 WBC (Bld) 0.5 % 0-1 [facility] Bilirubin [Mass/Vol] 0.50 mg/dL 0.20-1.00 [facility] Comment on above: For patients on eltr ombopag therapy, use of Dimension [place] TBIL is not recommended. Chloride [Moles/Vol] 102 mmol/L 98-107 [facility] Eosinophils/100 WBC (Bld) 1.9 % 0-5 [facility] Glucose [Mass/Vol] 102 mg/dL 74-106 [facility] Comment on above: Fasting Glucose resu lt from 100 to 125 mg/dL suggests IMPAIRED HOMEOSTASIS per A.D.A. criteria. Neutrophils (Bld) [#/Vol] 6.0 10*3/uL 2.0-7.7 [facility] Neutrophils/100 WBC (Bld) 67.5 % 47-70 [facility] Potassium [Moles/Vol] 3.9 mmol/L 3.5-5.1 [facility] Protein [Mass/Vol] 6.9 g/dL 6.4-8.2 [facility] Sodium [Moles/Vol] 137 mmol/L 136-145 [facility] WBC (Bld) [#/Vol] 8.8 10*3/uL 4.4-11.0 [facility] Blood erythrocytes count (nu mber/volume)Ordered By: Dr. Brooks on 11-14-2022 RBC (Bld) [#/Vol] 3.96 10*6/uL 4.2-5.4 [facility] Blood hemoglobin measurement (mass/volume)Ordered By: Dr. Brooks on 11-14-2022 Hemoglobin (Bld) [Mass/Vol] 12.5 g/dL 12.0-15.0 [facility] Blood lymphocytes/100 leukoc ytesOrdered By: Dr. Brooks on 11-14-2022 Lymphocytes/100 WBC (Bld) 23.4 % 19-41 [facility] Blood monocytes/100 leukocyt esOrdered By: Dr. Brooks on 11-14-2022 Monocytes/100 WBC (Bld) 6.5 % 0-10 [facility] Blood platelet mean volumeOr dered By: Dr. Brooks on 11-14-2022 Platelet mean volume (Bld) [Entitic vol] 9.1 fL 6.2-12.0 [facility] Determination of erythrocyte mean corpuscular volume (MCV)Ordered By: Dr. Brooks on 11-14-2022 MCV (RBC) [Entitic vol] 96.7 fL 81-99 [facility] Hematocrit Auto (Bld) [Volum e fraction]Ordered By: Dr. Brooks on 11-14-2022 Hematocrit (Bld) [Volume fraction] 38.3 % 37-47 [facility] Laboratory - Chemistry and C hemistry - challengeOrdered By: Dr. Brooks on 11-14-2022 ALP [Catalytic activity/Vol] 68 U/L 45-117 [facility] ALT [Catalytic activity/Vol] 19 U/L 13-56 [facility] CO2 [Moles/Vol] 29.0 mmol/L 21.0-32.0 [facility] Globulin (S) [Mass/Vol] 3.6 g/dL 2.2-4.2 [facility] Urea nitrogen/Creatinine [Mass ratio] 15.0 mg/mg 10-20 [facility] Laboratory - Hematology and Cell countsOrdered By: Dr. Brooks on 11-14-2022 Erythrocyte distribution width (RBC) [Entitic vol] 48.9 fL 35.1-43.9 [facility] Erythrocyte distribution width (RBC) [Ratio] 13.8 % 11.6-14.6 [facility] Immature granulocytes/100 WBC (Bld) 0.200 % 0.0-0.9 [facility] Comment on above: IG% - Immature Granu locytes (promyelocytes, myelocytes and metamyelocytes) > 1% indicates that a LEFT SHIFT is Present. MCH (RBC) [Entitic mass] 31.6 pg 27.0-32.0 [facility] Nucleated RBC/100 WBC (Bld) [Ratio] 0 % 0-5 [facility] MCHC Auto (RBC) [Mass/Vol]Or dered By: Dr. Brooks on 11-14-2022 MCHC (RBC) [Mass/Vol] 32.6 g/dL 32-36 [facility] No Panel InformationOrdered By: Dr. Brooks on 11-14-2022 Estimated GFR (MDRD) Amer 89 mL/min >60 [facility] Comment on above: GFR Calc Estimated GFR (MDRD) Non-Af Amer 73 mL/min >60 [facility] Comment on above: Non- GFR Calc Platelets bldOrdered By: Dr. Brooks on 11-14-2022 Platelets (Bld) [#/Vol] 317 10*3/uL 150-450 [facility] Serum or plasma albumin amanda urement (mass/volume)Ordered By: Dr. Brooks on 11-14-2022 Albumin [Mass/Vol] 3.3 g/dL 3.2-5.0 [facility] Serum or plasma albumin/glob ulin mass ratioOrdered By: Dr. Brooks on 11-14-2022 Albumin/Globulin [Mass ratio] 0.9 {ratio} 0.9-2.4 [facility] Serum or plasma calcium amanda urement (mass/volume)Ordered By: Dr. Brooks on 11-14-2022 Calcium [Mass/Vol] 8.8 mg/dL 8.5-10.1 [facility] Serum or plasma creatinine m easurement (mass/volume)Ordered By: Dr. Brooks on 11-14-2022 Creatinine [Mass/Vol] 0.80 mg/dL 0.55-1.02 [facility] Comment on above: The validity of the calculated GFR & GFRAA in patients over 70 years has not been determined. Clinical correlation is essential. Serum or plasma urea nitroge n measurement (mass/volume)Ordered By: Dr. Brooks on 11-14-2022 Urea nitrogen [Mass/Vol] 12 mg/dL 7-18 [facility] Thin prep Papanicolaou smear with manual screeningOrdered By: Dr. Brooks on 11-14-2022 Thin prep Papanicolaou smear with manual screening 20 U/L 15-37 [facility] Thin prep Papanicolaou smear with manual screening 6 5-15 [facility] Absolute lymphocyte countOrd ered By: Dr. Brooks on 08-13-2022 Lymphocytes Auto (Unsp spec) [#/Vol] 2.16 10*3/uL 0.83-4.51 [facility] Basophil percentageOrdered B y: Dr. Brooks on 08-13-2022 Basophils/100 WBC (Bld) 0.5 % 0-1 [facility] Bilirubin [Mass/Vol] 0.50 mg/dL 0.20-1.00 [facility] Comment on above: For patients on eltr ombopag therapy, use of Dimension [place] TBIL is not recommended. Chloride [Moles/Vol] 100 mmol/L 98-107 [facility] Eosinophils/100 WBC (Bld) 1.1 % 0-5 [facility] Glucose [Mass/Vol] 104 mg/dL 74-106 [facility] Comment on above: Fasting Glucose resu lt from 100 to 125 mg/dL suggests IMPAIRED HOMEOSTASIS per A.D.A. criteria. Neutrophils (Bld) [#/Vol] 6.7 10*3/uL 2.0-7.7 [facility] Neutrophils/100 WBC (Bld) 68.4 % 47-70 [facility] Potassium [Moles/Vol] 3.7 mmol/L 3.5-5.1 [facility] Protein [Mass/Vol] 6.5 g/dL 6.4-8.2 [facility] Sodium [Moles/Vol] 134 mmol/L 136-145 [facility] WBC (Bld) [#/Vol] 9.8 10*3/uL 4.4-11.0 [facility] Blood erythrocytes count (nu mber/volume)Ordered By: Dr. Brooks on 08-13-2022 RBC (Bld) [#/Vol] 4.00 10*6/uL 4.2-5.4 [facility] Blood hemoglobin measurement (mass/volume)Ordered By: Dr. Brooks on 08-13-2022 Hemoglobin (Bld) [Mass/Vol] 12.9 g/dL 12.0-15.0 [facility] Blood lymphocytes/100 leukoc ytesOrdered By: Dr. Brooks on 08-13-2022 Lymphocytes/100 WBC (Bld) 22.0 % 19-41 [facility] Blood monocytes/100 leukocyt esOrdered By: Dr. Brooks on 08-13-2022 Monocytes/100 WBC (Bld) 7.8 % 0-10 [facility] Blood platelet mean volumeOr dered By: Dr. Brooks on 08-13-2022 Platelet mean volume (Bld) [Entitic vol] 8.8 fL 6.2-12.0 [facility] Determination of erythrocyte mean corpuscular volume (MCV)Ordered By: Dr. Brooks on 08-13-2022 MCV (RBC) [Entitic vol] 95.3 fL 81-99 [facility] Hematocrit Auto (Bld) [Volum e fraction]Ordered By: Dr. Brooks on 08-13-2022 Hematocrit (Bld) [Volume fraction] 38.1 % 37-47 [facility] Laboratory - Chemistry and C hemistry - challengeOrdered By: Dr. Brooks on 08-13-2022 ALP [Catalytic activity/Vol] 72 U/L 45-117 [facility] ALT [Catalytic activity/Vol] 25 U/L 13-56 [facility] CO2 [Moles/Vol] 28.0 mmol/L 21.0-32.0 [facility] Globulin (S) [Mass/Vol] 3.2 g/dL 2.2-4.2 [facility] Urea nitrogen/Creatinine [Mass ratio] 15.6 mg/mg 10-20 [facility] Laboratory - Hematology and Cell countsOrdered By: Dr. Brooks on 08-13-2022 Erythrocyte distribution width (RBC) [Entitic vol] 50.9 fL 35.1-43.9 [facility] Erythrocyte distribution width (RBC) [Ratio] 14.6 % 11.6-14.6 [facility] Immature granulocytes/100 WBC (Bld) 0.200 % 0.0-0.9 [facility] Comment on above: IG% - Immature Granu locytes (promyelocytes, myelocytes and metamyelocytes) > 1% indicates that a LEFT SHIFT is Present. MCH (RBC) [Entitic mass] 32.3 pg 27.0-32.0 [facility] Nucleated RBC/100 WBC (Bld) [Ratio] 0 % 0-5 [facility] MCHC Auto (RBC) [Mass/Vol]Or dered By: Dr. Brooks on 08-13-2022 MCHC (RBC) [Mass/Vol] 33.9 g/dL 32-36 [facility] No Panel InformationOrdered By: Dr. Brooks on 08-13-2022 Estimated Creatinine Clearance Calc 38.75 ml/min [facility] Estimated GFR (MDRD) Amer 102 mL/min >60 [facility] Comment on above: GFR Calc Estimated GFR (MDRD) Non-Af Amer 85 mL/min >60 [facility] Comment on above: Non- GFR Calc Platelets bldOrdered By: Dr. Brooks on 08-13-2022 Platelets (Bld) [#/Vol] 304 10*3/uL 150-450 [facility] Serum or plasma albumin amanda urement (mass/volume)Ordered By: Dr. Brooks on 08-13-2022 Albumin [Mass/Vol] 3.3 g/dL 3.2-5.0 [facility] Serum or plasma albumin/glob ulin mass ratioOrdered By: Dr. Brooks on 08-13-2022 Albumin/Globulin [Mass ratio] 1.0 {ratio} 0.9-2.4 [facility] Serum or plasma calcium amanda urement (mass/volume)Ordered By: Dr. Brooks on 08-13-2022 Calcium [Mass/Vol] 8.8 mg/dL 8.5-10.1 [facility] Serum or plasma creatinine m easurement (mass/volume)Ordered By: Dr. Brooks on 08-13-2022 Creatinine [Mass/Vol] 0.71 mg/dL 0.55-1.02 [facility] Comment on above: The validity of the calculated GFR & GFRAA in patients over 70 years has not been determined. Clinical correlation is essential. Serum or plasma urea nitroge n measurement (mass/volume)Ordered By: Dr. Brooks on 08-13-2022 Urea nitrogen [Mass/Vol] 11 mg/dL 7-18 [facility] Thin prep Papanicolaou smear with manual screeningOrdered By: Dr. Brooks on 08-13-2022 Thin prep Papanicolaou smear with manual screening 29 U/L 15-37 [facility] Thin prep Papanicolaou smear with manual screening 6 5-15 [facility] Absolute lymphocyte counton 0805-2022 Lymphocytes Auto (Unsp spec) [#/Vol] 1.79 10*3/uL 0.83-4.51 [facility] Work Phone: Basophil percentageon 2021 Basophils/100 WBC (Bld) 0.2 % 0-1 [facility] Work Phone: Bilirubin [Mass/Vol] 0.40 mg/dL 0.20-1.00 [facility] Work Phone: Comment on above: For patients on eltr ombopag therapy, use of Dimension [place] TBIL is not recommended. Chloride [Moles/Vol] 102 mmol/L 98-107 [facility] Work Phone: Eosinophils/100 WBC (Bld) 1.2 % 0-5 [facility] Work Phone: Glucose [Mass/Vol] 104 mg/dL 74-106 [facility] Work Phone: Comment on above: Fasting Glucose resu lt from 100 to 125 mg/dL suggests IMPAIRED HOMEOSTASIS per A.D.A. criteria. Neutrophils (Bld) [#/Vol] 6.6 10*3/uL 2.0-7.7 [facility] Work Phone: Neutrophils/100 WBC (Bld) 71.2 % 47-70 [facility] Work Phone: Potassium [Moles/Vol] 4.1 mmol/L 3.5-5.1 [facility] Work Phone: Protein [Mass/Vol] 6.7 g/dL 6.4-8.2 [facility] Work Phone: Sodium [Moles/Vol] 134 mmol/L 136-145 [facility] Work Phone: WBC (Bld) [#/Vol] 9.3 10*3/uL 4.4-11.0 [facility] Work Phone: Blood erythrocytes count (nu mber/volume)on 05-17-2022 RBC (Bld) [#/Vol] 3.86 10*6/uL 4.2-5.4 [facility]: Blood hemoglobin measurement (mass/volume)on 05-17-2022 Hemoglobin (Bld) [Mass/Vol] 12.3 g/dL 12.0-15.0 [facility] Work Phone: Blood lymphocytes/100 leukoc yteson 05-17-2022 Lymphocytes/100 WBC (Bld) 19.2 % 19-41 [facility] Work Phone: Blood monocytes/100 leukocyt eson 05-17-2022 Monocytes/100 WBC (Bld) 7.8 % 0-10 [facility] Work Phone: Blood platelet mean volumeon 05-17-2022 Platelet mean volume (Bld) [Entitic vol] 9.2 fL 6.2-12.0 [facility] Work Phone: Determination of erythrocyte mean corpuscular volume (MCV)on 05-17-2022 MCV (RBC) [Entitic vol] 95.6 fL 81-99 [facility] Work Phone: Hematocrit Auto (Bld) [Volum e fraction]on 05-17-2022 Hematocrit (Bld) [Volume fraction] 36.9 % 37-47 [facility] Work Phone: Laboratory - Chemistry and C hemistry - challengeon 05-17-2022 ALP [Catalytic activity/Vol] 69 U/L 45-117 [facility] Work Phone: ALT [Catalytic activity/Vol] 18 U/L 13-56 [facility] Work Phone: CO2 [Moles/Vol] 27.0 mmol/L 21.0-32.0 [facility] Work Phone: Globulin (S) [Mass/Vol] 3.4 g/dL 2.2-4.2 [facility] Work Phone: Urea nitrogen/Creatinine [Mass ratio] 16.0 mg/mg 10-20 [facility] Work Phone: Laboratory - Hematology and Cell countson 05-17-2022 Erythrocyte distribution width (RBC) [Entitic vol] 49.5 fL 35.1-43.9 [facility] Work Phone: Erythrocyte distribution width (RBC) [Ratio] 14.3 % 11.6-14.6 [facility] Work Phone: Immature granulocytes/100 WBC (Bld) 0.400 % 0.0-0.9 [facility] Work Phone: Comment on above: IG% - Immature Granu locytes (promyelocytes, myelocytes and metamyelocytes) > 1% indicates that a LEFT SHIFT is Present. MCH (RBC) [Entitic mass] 31.9 pg 27.0-32.0 [facility] Work Phone: Nucleated RBC/100 WBC (Bld) [Ratio] 0 % 0-5 [facility] Work Phone: MCHC Auto (RBC) [Mass/Vol]on 05-17-2022 MCHC (RBC) [Mass/Vol] 33.3 g/dL 32-36 [facility] Work Phone: No Panel Informationon 05-17 Estimated GFR (MDRD) Amer 87 mL/min >60 [facility] Work Phone: Comment on above: GFR Calc Estimated GFR (MDRD) Non-Af Amer 72 mL/min >60 [facility] Work Phone: Comment on above: Non- GFR Calc Platelets bldon 05-17-2022 Platelets (Bld) [#/Vol] 317 10*3/uL 150-450 [facility] Work Phone: Serum or plasma albumin amanda urement (mass/volume)on 05-17-2022 Albumin [Mass/Vol] 3.3 g/dL 3.2-5.0 [facility] Work Phone: Serum or plasma albumin/glob ulin mass ratioon 05-17-2022 Albumin/Globulin [Mass ratio] 1.0 {ratio} 0.9-2.4 [facility] Work Phone: Serum or plasma calcium amanda urement (mass/volume)on 05-17-2022 Calcium [Mass/Vol] 8.5 mg/dL 8.5-10.1 [facility] Work Phone: Serum or plasma creatinine m easurement (mass/volume)on 05-17-2022 Creatinine [Mass/Vol] 0.81 mg/dL 0.55-1.02 [facility] Work Phone: Comment on above: The validity of the calculated GFR & GFRAA in patients over 70 years has not been determined. Clinical correlation is essential. Serum or plasma urea nitroge n measurement (mass/volume)on 05-17-2022 Urea nitrogen [Mass/Vol] 13 mg/dL 7-18 [facility] Work Phone: Thin prep Papanicolaou smear with manual screeningon 05-17-2022 Thin prep Papanicolaou smear with manual screening 14 U/L 15-37 [facility] Work Phone: Thin prep Papanicolaou smear with manual screening 5 5-15 [facility] Work Phone: No Panel Informationon 03-22 POC SARS CoV-2 Antigen Negative [facility] Work Phone: Absolute lymphocyte counton 01-11-2022 Lymphocytes Auto (Unsp spec) [#/Vol] 2.10 10*3/uL 0.83-4.51 [facility] Work Phone: Basophil percentageon 2021 Basophils/100 WBC (Bld) 0.3 % 0-1 [facility] Work Phone: Bilirubin [Mass/Vol] 0.40 mg/dL 0.20-1.00 [facility] Work Phone: Comment on above: For patients on eltr ombopag therapy, use of Dimension [place] TBIL is not recommended. Chloride [Moles/Vol] 104 mmol/L 98-107 [facility] Work Phone: Eosinophils/100 WBC (Bld) 1.3 % 0-5 [facility] Work Phone: Glucose [Mass/Vol] 119 mg/dL 74-106 [facility] Work Phone: Comment on above: Fasting Glucose resu lt from 100 to 125 mg/dL suggests IMPAIRED HOMEOSTASIS per A.D.A. criteria. Neutrophils (Bld) [#/Vol] 5.9 10*3/uL 2.0-7.7 [facility] Work Phone: Neutrophils/100 WBC (Bld) 67.1 % 47-70 [facility] Work Phone: Potassium [Moles/Vol] 3.9 mmol/L 3.5-5.1 [facility] Work Phone: Protein [Mass/Vol] 6.9 g/dL 6.4-8.2 [facility] Work Phone: Sodium [Moles/Vol] 136 mmol/L 136-145 [facility] Work Phone: WBC (Bld) [#/Vol] 8.8 10*3/uL 4.4-11.0 [facility] Work Phone: Blood erythrocytes count (nu mber/volume)on 01-11-2022 RBC (Bld) [#/Vol] 4.11 10*6/uL 4.2-5.4 [facility] Work Phone: Blood hemoglobin measurement (mass/volume)on 01-11-2022 Hemoglobin (Bld) [Mass/Vol] 13.1 g/dL 12.0-15.0 [facility] Work Phone: Blood lymphocytes/100 leukoc yteson 01-11-2022 Lymphocytes/100 WBC (Bld) 23.9 % 19-41 [facility] Work Phone: Blood monocytes/100 leukocyt eson 01-11-2022 Monocytes/100 WBC (Bld) 7.1 % 0-10 [facility] Work Phone: Blood platelet mean volumeon 01-11-2022 Platelet mean volume (Bld) [Entitic vol] 8.6 fL 6.2-12.0 [facility] Work Phone: Determination of erythrocyte mean corpuscular volume (MCV)on 01-11-2022 MCV (RBC) [Entitic vol] 96.6 fL 81-99 [facility] Work Phone: Hematocrit Auto (Bld) [Volum e fraction]on 01-11-2022 Hematocrit (Bld) [Volume fraction] 39.7 % 37-47 [facility] Work Phone: Laboratory - Chemistry and C hemistry - challengeon 01-11-2022 ALP [Catalytic activity/Vol] 74 U/L 45-117 [facility] Work Phone: ALT [Catalytic activity/Vol] 16 U/L 13-56 [facility] Work Phone: CO2 [Moles/Vol] 28.0 mmol/L 21.0-32.0 [facility] Work Phone: Globulin (S) [Mass/Vol] 3.4 g/dL 2.2-4.2 [facility] Work Phone: Urea nitrogen/Creatinine [Mass ratio] 16.0 mg/mg 10-20 [facility] Work Phone: Laboratory - Hematology and Cell countson 01-11-2022 Erythrocyte distribution width (RBC) [Entitic vol] 49.6 fL 35.1-43.9 [facility] Work Phone: Erythrocyte distribution width (RBC) [Ratio] 14.1 % 11.6-14.6 [facility] Work Phone: Immature granulocytes/100 WBC (Bld) 0.300 % 0.0-0.9 [facility] Work Phone: Comment on above: IG% - Immature Granu locytes (promyelocytes, myelocytes and metamyelocytes) > 1% indicates that a LEFT SHIFT is Present. MCH (RBC) [Entitic mass] 31.9 pg 27.0-32.0 [facility] Work Phone: Nucleated RBC/100 WBC (Bld) [Ratio] 0 % 0-5 [facility] Work Phone: MCHC Auto (RBC) [Mass/Vol]on 01-11-2022 MCHC (RBC) [Mass/Vol] 33.0 g/dL 32-36 [facility] Work Phone: No Panel Informationon 01-11 Estimated GFR (MDRD) Amer 87 mL/min >60 [facility] Work Phone: Comment on above: GFR Calc Estimated GFR (MDRD) Non-Af Amer 72 mL/min >60 [facility] Work Phone: Comment on above: Non- GFR Calc Platelets bldon 01-11-2022 Platelets (Bld) [#/Vol] 323 10*3/uL 150-450 [facility] Work Phone: Serum or plasma albumin amanda urement (mass/volume)on 01-11-2022 Albumin [Mass/Vol] 3.5 g/dL 3.2-5.0 [facility] Work Phone: Serum or plasma albumin/glob ulin mass ratioon 01-11-2022 Albumin/Globulin [Mass ratio] 1.0 {ratio} 0.9-2.4 [facility] Work Phone: Serum or plasma calcium amanda urement (mass/volume)on 01-11-2022 Calcium [Mass/Vol] 9.0 mg/dL 8.5-10.1 [facility] Work Phone: Serum or plasma creatinine m easurement (mass/volume)on 01-11-2022 Creatinine [Mass/Vol] 0.81 mg/dL 0.55-1.02 [facility] Work Phone: Comment on above: The validity of the calculated GFR & GFRAA in patients over 70 years has not been determined. Clinical correlation is essential. Serum or plasma urea nitroge n measurement (mass/volume)on 01-11-2022 Urea nitrogen [Mass/Vol] 13 mg/dL 7-18 [facility] Work Phone: Thin prep Papanicolaou smear with manual screeningon 01-11-2022 Thin prep Papanicolaou smear with manual screening 15 U/L 15-37 [facility] Work Phone: Thin prep Papanicolaou smear with manual screening 4 5-15 [facility] Work Phone: Absolute lymphocyte counton 11-19-2021 Lymphocytes Auto (Unsp spec) [#/Vol] 1.58 10*3/uL 0.83-4.51 [facility] Work Phone: Basophil percentageon 2021 Basophils/100 WBC (Bld) 0.5 % 0-1 [facility] Work Phone: Chloride [Moles/Vol] 104 mmol/L 98-107 [facility] Work Phone: Eosinophils/100 WBC (Bld) 1.2 % 0-5 [facility] Work Phone: Glucose [Mass/Vol] 93 mg/dL 74-106 [facility] Work Phone: Neutrophils (Bld) [#/Vol] 6.2 10*3/uL 2.0-7.7 [facility] Work Phone: Neutrophils/100 WBC (Bld) 69.9 % 47-70 [facility] Work Phone: Potassium [Moles/Vol] 3.9 mmol/L 3.5-5.1 [facility] Work Phone: Sodium [Moles/Vol] 136 mmol/L 136-145 [facility] Work Phone: WBC (Bld) [#/Vol] 8.8 10*3/uL 4.4-11.0 [facility] Work Phone: Blood erythrocytes count (nu mber/volume)on 11-19-2021 RBC (Bld) [#/Vol] 3.82 10*6/uL 4.2-5.4 [facility] Work Phone: Blood hemoglobin measurement (mass/volume)on 11-19-2021 Hemoglobin (Bld) [Mass/Vol] 12.5 g/dL 12.0-15.0 [facility] Work Phone: Blood lymphocytes/100 leukoc yteson 11-19-2021 Lymphocytes/100 WBC (Bld) 17.9 % 19-41 [facility] Work Phone: Blood monocytes/100 leukocyt eson 11-19-2021 Monocytes/100 WBC (Bld) 10.2 % 0-10 [facility] Work Phone: Blood platelet mean volumeon 11-19-2021 Platelet mean volume (Bld) [Entitic vol] 9.1 fL 6.2-12.0 [facility] Work Phone: Determination of erythrocyte mean corpuscular volume (MCV)on 11-19-2021 MCV (RBC) [Entitic vol] 96.1 fL 81-99 [facility] Work Phone: Glucose Glucometer (BldC) [M ass/Vol]on 11-19-2021 Glucose [Mass/Vol] 85 mg/dL 70-110 [facility] Work Phone: Comment on above: MANAGEMENT OF PATIEN T CARE PER NURSING PROTOCOL Hematocrit Auto (Bld) [Volum e fraction]on 11-19-2021 Hematocrit (Bld) [Volume fraction] 36.7 % 37-47 [facility] Work Phone: Laboratory - Chemistry and C hemistry - challengeon 11-19-2021 CO2 [Moles/Vol] 27.0 mmol/L 21.0-32.0 [facility] Work Phone: Urea nitrogen/Creatinine [Mass ratio] 19.0 mg/mg 10-20 [facility] Work Phone: Laboratory - Hematology and Cell countson 11-19-2021 Erythrocyte distribution width (RBC) [Entitic vol] 49.2 fL 35.1-43.9 [facility] Work Phone: Erythrocyte distribution width (RBC) [Ratio] 14.2 % 11.6-14.6 [facility] Work Phone: Immature granulocytes/100 WBC (Bld) 0.300 % 0.0-0.9 [facility] Work Phone: Comment on above: IG% - Immature Granu locytes (promyelocytes, myelocytes and metamyelocytes) > 1% indicates that a LEFT SHIFT is Present. MCH (RBC) [Entitic mass] 32.7 pg 27.0-32.0 [facility] Work Phone: Nucleated RBC/100 WBC (Bld) [Ratio] 0 % 0-5 [facility] Work Phone: MCHC Auto (RBC) [Mass/Vol]on 11-19-2021 MCHC (RBC) [Mass/Vol] 34.1 g/dL 32-36 [facility] Work Phone: No Panel Informationon 11-19 Estimated Creatinine Clearance Calc 39.39 ml/min [facility] Work Phone: Estimated GFR (MDRD) Amer 107 mL/min >60 [facility] Work Phone: Comment on above: GFR Calc Estimated GFR (MDRD) Non-Af Amer 88 mL/min >60 [facility] Work Phone: Comment on above: Non- GFR Calc Troponin I High Sensitivity 6 pg/mL 3.0-54.0 [facility] Work Phone: Comment on above: Please Note: New Tiffany t Units and Gender Specific Reference Ranges. For more information see Policy Stat Procedure [place] High Sensitivity Troponin (TNIH) and attachments. Platelets bldon 11-19-2021 Platelets (Bld) [#/Vol] 304 10*3/uL 150-450 [facility] Work Phone: Serum or plasma calcium amanda urement (mass/volume)on 11-19-2021 Calcium [Mass/Vol] 9.0 mg/dL 8.5-10.1 [facility] Work Phone: Serum or plasma creatinine m easurement (mass/volume)on 11-19-2021 Creatinine [Mass/Vol] 0.68 mg/dL 0.55-1.02 [facility] Work Phone: Comment on above: The validity of the calculated GFR & GFRAA in patients over 70 years has not been determined. Clinical correlation is essential. Serum or plasma urea nitroge n measurement (mass/volume)on 11-19-2021 Urea nitrogen [Mass/Vol] 13 mg/dL 7-18 [facility] Work Phone: Thin prep Papanicolaou smear with manual screeningon 11-19-2021 Thin prep Papanicolaou smear with manual screening 5 5-15 [facility] Work Phone: Absolute lymphocyte counton 10-18-2021 Lymphocytes Auto (Unsp spec) [#/Vol] 1.91 10*3/uL 0.83-4.51 [facility] Work Phone: Basophil percentageon 2021 Basophils/100 WBC (Bld) 0.4 % 0-1 [facility] Work Phone: Bilirubin [Mass/Vol] 0.50 mg/dL 0.20-1.00 [facility] Work Phone: Comment on above: For patients on eltr ombopag therapy, use of Dimension [place] TBIL is not recommended. Chloride [Moles/Vol] 102 mmol/L 98-107 [facility] Work Phone: Eosinophils/100 WBC (Bld) 1.1 % 0-5 [facility] Work Phone: Glucose [Mass/Vol] 99 mg/dL 74-106 [facility] Work Phone: Comment on above: Please note revised GLUCOSE reference range effective 2017. Neutrophils (Bld) [#/Vol] 6.3 10*3/uL 2.0-7.7 [facility] Work Phone: Neutrophils/100 WBC (Bld) 70.5 % 47-70 [facility] Work Phone: Potassium [Moles/Vol] 3.8 mmol/L 3.5-5.1 [facility] Work Phone: Protein [Mass/Vol] 7.0 g/dL 6.4-8.2 [facility] Work Phone: Sodium [Moles/Vol] 135 mmol/L 136-145 [facility] Work Phone: WBC (Bld) [#/Vol] 8.9 10*3/uL 4.4-11.0 [facility] Work Phone: Blood erythrocytes count (nu mber/volume)on 10-18-2021 RBC (Bld) [#/Vol] 4.00 10*6/uL 4.2-5.4 [facility] Work Phone: Blood hemoglobin measurement (mass/volume)on 10-18-2021 Hemoglobin (Bld) [Mass/Vol] 12.7 g/dL 12.0-15.0 [facility] Work Phone: Blood lymphocytes/100 leukoc yteson 10-18-2021 Lymphocytes/100 WBC (Bld) 21.4 % 19-41 [facility] Work Phone: Blood monocytes/100 leukocyt eson 10-18-2021 Monocytes/100 WBC (Bld) 6.3 % 0-10 [facility] Work Phone: Blood platelet mean volumeon 10-18-2021 Platelet mean volume (Bld) [Entitic vol] 9.0 fL 6.2-12.0 [facility] Work Phone: Determination of erythrocyte mean corpuscular volume (MCV)on 10-18-2021 MCV (RBC) [Entitic vol] 95.0 fL 81-99 [facility] Work Phone: Hematocrit Auto (Bld) [Volum e fraction]on 10-18-2021 Hematocrit (Bld) [Volume fraction] 38.0 % 37-47 [facility] Work Phone: Laboratory - Chemistry and C hemistry - challengeon 10-18-2021 ALP [Catalytic activity/Vol] 77 U/L 45-117 [facility] Work Phone: ALT [Catalytic activity/Vol] 22 U/L 13-56 [facility] Work Phone: CO2 [Moles/Vol] 27.0 mmol/L 21.0-32.0 [facility] Work Phone: Globulin (S) [Mass/Vol] 3.6 g/dL 2.2-4.2 [facility] Work Phone: Urea nitrogen/Creatinine [Mass ratio] 21.5 mg/mg 10-20 [facility] Work Phone: Laboratory - Hematology and Cell countson 10-18-2021 Erythrocyte distribution width (RBC) [Entitic vol] 49.2 fL 35.1-43.9 [facility] Work Phone: Erythrocyte distribution width (RBC) [Ratio] 14.2 % 11.6-14.6 [facility] Work Phone: Immature granulocytes/100 WBC (Bld) 0.300 % 0.0-0.9 [facility] Work Phone: Comment on above: IG% - Immature Granu locytes (promyelocytes, myelocytes and metamyelocytes) > 1% indicates that a LEFT SHIFT is Present. MCH (RBC) [Entitic mass] 31.8 pg 27.0-32.0 [facility] Work Phone: Nucleated RBC/100 WBC (Bld) [Ratio] 0 % 0-5 [facility] Work Phone: MCHC Auto (RBC) [Mass/Vol]on 10-18-2021 MCHC (RBC) [Mass/Vol] 33.4 g/dL 32-36 [facility] Work Phone: No Panel Informationon 10-18 Estimated GFR (MDRD) Amer 123 mL/min >60 [facility] Work Phone: Comment on above: GFR Calc Estimated GFR (MDRD) Non-Af Amer 102 mL/min >60 [facility] Work Phone: Comment on above: Non- GFR Calc Platelets bldon 10-18-2021 Platelets (Bld) [#/Vol] 305 10*3/uL 150-450 [facility] Work Phone: Serum or plasma albumin amanda urement (mass/volume)on 10-18-2021 Albumin [Mass/Vol] 3.4 g/dL 3.2-5.0 [facility] Work Phone: Serum or plasma albumin/glob ulin mass ratioon 10-18-2021 Albumin/Globulin [Mass ratio] 0.9 {ratio} 0.9-2.4 [facility] Work Phone: Serum or plasma calcium amanda urement (mass/volume)on 10-18-2021 Calcium [Mass/Vol] 8.8 mg/dL 8.5-10.1 [facility] Work Phone: Serum or plasma creatinine m easurement (mass/volume)on 10-18-2021 Creatinine [Mass/Vol] 0.60 mg/dL 0.55-1.02 [facility] Work Phone: Comment on above: The validity of the calculated GFR & GFRAA in patients over 70 years has not been determined. Clinical correlation is essential. Serum or plasma urea nitroge n measurement (mass/volume)on 10-18-2021 Urea nitrogen [Mass/Vol] 13 mg/dL 7-18 [facility] Work Phone: Thin prep Papanicolaou smear with manual screeningon 10-18-2021 Thin prep Papanicolaou smear with manual screening 17 U/L 15-37 [facility] Work Phone: Thin prep Papanicolaou smear with manual screening 6 5-15 [facility] Work Phone: CBC W/Diff, AutomatedOrdered By: Asset Management Analyst on 07-16-2018 Absolute Lymph 2.37 {X10_3/ul} Normal 0.83-4.51 [facility] Work Phone: Absolute Neut 5.8 {X10_3/uL} Normal 2.0-7.7 [facility] Work Phone: Basophils/100 WBC Auto (Bld) 0.2 % Normal 0-1 [facility] Work Phone: Eosinophils/100 WBC Auto (Bld) 1.9 % Normal 0-5 [facility] Work Phone: Erythrocyte distribution width Auto Ratio (RBC) 13.6 % Normal 11.6-14.6 [facility] Work Phone: Hematocrit Auto Volume Fraction (Bld) 35.9 % Abnormal 37-47 [facility] Work Phone: Hemoglobin mass conc (Bld) 11.9 g/dL Abnormal 12.0-15.0 [facility] Work Phone: IM GRAN % 0.200 % Normal 0.0-0.9 [facility] Work Phone: Comment on above: IG% - Immature Granu locytes (promyelocytes, myelocytes andmetamyelocytes) > 1% indicates that a LEFT SHIFT is Present. Lymphocytes/100 WBC Auto (Bld) 26.8 % Normal 19-41 [facility] Work Phone: MCH Auto Entitic mass (RBC) 31.7 pg Normal 27.0-32.0 [facility] Work Phone: MCHC Auto mass conc (RBC) 33.1 {g/gl} Normal 32-36 [facility] Work Phone: MCV Auto Entitic volume (RBC) 95.7 fL Normal 81-99 [facility] Work Phone: Monocytes/100 WBC Auto (Bld) 4.9 % Normal 0-10 [facility] Work Phone: Neutrophils/100 WBC Auto (Bld) 66.0 % Normal 47-70 [facility] Work Phone: Platelet mean volume Auto Entitic volume (Bld) 8.9 fL Normal 6.2-12.0 [facility] Work Phone: Platelets Auto #/vol (Bld) 313 10*3/uL Normal 150-450 [facility] Work Phone: RBC Auto #/vol (Bld) 3.75 {M/mm3} Abnormal 4.2-5.4 [facility] Work Phone: RDW SD 45.3 fL Abnormal 35.1-43.9 [facility] Work Phone: WBC Auto #/vol (Bld) 8.8 10*3/uL Normal 4.4-11.0 [facility] Work Phone: Comprehensive Metabolic Prof ilOrdered By: Asset Management Analyst on 07-16-2018 Comprehensive metabolic 2000 panel 20 U/L Normal 13-56 [facility] Work Phone: Comprehensive metabolic 2000 panel 4.1 mmol/L Normal 3.5-5.1 [facility] Work Phone: Comprehensive metabolic 2000 panel 6.6 g/dL Normal 6.4-8.2 [facility] Work Phone: Comprehensive metabolic 2000 panel 6 1 Normal 5-15 [facility] Work Phone: Comprehensive metabolic 2000 panel 41.33 ml/min Normal [facility] Work Phone: Comprehensive metabolic 2000 panel 133 mmol/L Abnormal 136-145 [facility] Work Phone: Comprehensive metabolic 2000 panel 0.40 mg/dL Normal 0.20-1.00 [facility] Work Phone: Comprehensive metabolic 2000 panel 28.0 mmol/L Normal 21.0-32.0 [facility] Work Phone: Comprehensive metabolic 2000 panel 12.9 {RATIO} Normal 10-20 [facility] Work Phone: Comprehensive metabolic 2000 panel 99 mmol/L Normal 98-107 [facility] Work Phone: Comprehensive metabolic 2000 panel 93 mL/min Normal [facility] Work Phone: Comment on above: GFR Calc [facility] 2000 panel 84 U/L Normal 45-117 [facility] Work Phone: Comprehensive metabolic 2000 panel 21 U/L Normal 15-37 [facility] Work Phone: Comprehensive metabolic 2000 panel 8.5 mg/dL Normal 8.5-10.1 [facility] Work Phone: Comprehensive metabolic 2000 panel 0.8 {RATIO} Abnormal 0.9-2.4 [facility] Work Phone: Comprehensive metabolic 2000 panel 77 mL/min Normal [facility] Work Phone: Comment on above: Non- GFR Calc [facility] 2000 panel 0.78 mg/dL Normal 0.55-1.02 [facility] Work Phone: Comment on above: The validity of the calculated GFR AND GFRAA in patients over70 years has not been determined. Clinical correlation isessential. [facility] 2000 panel 10 mg/dL Normal 7-18 [facility] Work Phone: Comprehensive metabolic 2000 panel 133 mg/dL Abnormal 74-106 [facility] Work Phone: Comment on above: Fasting Glucose resu lt greater than or equal to 126 mg/dLsuggests DIABETES MELLITUS per A.D.A. criteria.Please note revised GLUCOSE reference range [id number]/02/2018. [facility] 2000 panel 3.6 g/dL Normal 2.2-4.2 [facility] Work Phone: Comprehensive metabolic 2000 panel 3.0 g/dL Abnormal 3.2-5.0 [facility] Work Phone: CBC W/Diff, AutomatedOrdered By: Asset Management Analyst on 04-09-2018 Absolute Lymph 2.42 {X10_3/ul} Normal 0.83-4.51 [facility] Work Phone: Absolute Neut 4.9 {X10_3/uL} Normal 2.0-7.7 [facility] Work Phone: Basophils/100 WBC Auto (Bld) 0.2 % Normal 0-1 [facility] Work Phone: Eosinophils/100 WBC Auto (Bld) 1.6 % Normal 0-5 [facility] Work Phone: Erythrocyte distribution width Auto Ratio (RBC) 13.9 % Normal 11.6-14.6 [facility] Work Phone: Hematocrit Auto Volume Fraction (Bld) 38.3 % Normal 37-47 [facility] Work Phone: Hemoglobin mass conc (Bld) 12.8 g/dL Normal 12.0-15.0 [facility] Work Phone: IM GRAN % 0.200 % Normal 0.0-0.9 [facility] Work Phone: Comment on above: IG% - Immature Granu locytes (promyelocytes, myelocytes andmetamyelocytes) > 1% indicates that a LEFT SHIFT is Present. Lymphocytes/100 WBC Auto (Bld) 30.0 % Normal 19-41 [facility] Work Phone: MCH Auto Entitic mass (RBC) 31.9 pg Normal 27.0-32.0 [facility] Work Phone: MCHC Auto mass conc (RBC) 33.4 {g/gl} Normal 32-36 [facility] Work Phone: MCV Auto Entitic volume (RBC) 95.5 fL Normal 81-99 [facility] Work Phone: Monocytes/100 WBC Auto (Bld) 6.8 % Normal 0-10 [facility] Work Phone: Neutrophils/100 WBC Auto (Bld) 61.2 % Normal 47-70 [facility] Work Phone: Platelet mean volume Auto Entitic volume (Bld) 9.2 fL Normal 6.2-12.0 [facility] Work Phone: Platelets Auto #/vol (Bld) 291 10*3/uL Normal 150-450 [facility] Work Phone: RBC Auto #/vol (Bld) 4.01 {M/mm3} Abnormal 4.2-5.4 [facility] Work Phone: RDW SD 47.0 fL Abnormal 35.1-43.9 [facility] Work Phone: WBC Auto #/vol (Bld) 8.1 10*3/uL Normal 4.4-11.0 [facility] Work Phone: Comprehensive Metabolic Prof ilOrdered By: Asset Management Analyst on 04-09-2018 [facility] 2000 panel 98 mmol/L Normal 98-107 [facility] Work Phone: Comprehensive metabolic 2000 panel 28.0 mmol/L Normal 21.0-32.0 [facility] Work Phone: Comprehensive metabolic 2000 panel 24 U/L Normal 13-56 [facility] Work Phone: [facility] metabolic 2000 panel 12 mg/dL Normal 7-18 [facility] Work Phone: Comprehensive metabolic 2000 panel 66 U/L Normal 45-117 [facility] Work Phone: Comprehensive metabolic 2000 panel 21 U/L Normal 15-37 [facility] Work Phone: Comprehensive metabolic 2000 panel 0.70 mg/dL Normal 0.20-1.00 [facility] Work Phone: Comprehensive metabolic 2000 panel 8.7 mg/dL Normal 8.5-10.1 [facility] Work Phone: Comprehensive metabolic 2000 panel 0.9 {RATIO} Normal 0.9-2.4 [facility] Work Phone: Comprehensive metabolic 2000 panel 3.6 g/dL Normal 2.2-4.2 [facility] Work Phone: Comprehensive metabolic 2000 panel 3.2 g/dL Normal 3.2-5.0 [facility] Work Phone: Comprehensive metabolic 2000 panel 6.8 g/dL Normal 6.4-8.2 [facility] Work Phone: [facility] metabolic 2000 panel 13.6 {RATIO} Normal 10-20 [facility] Work Phone: Comprehensive metabolic 2000 panel 80 mL/min Normal [facility] Work Phone: Comment on above: GFR Calc [facility] 2000 panel 66 mL/min Normal [facility] Work Phone: Comment on above: Non- GFR Calc [facility] 2000 panel 0.88 mg/dL Normal 0.55-1.02 [facility] Work Phone: Comment on above: The validity of the calculated GFR AND GFRAA in patients over70 years has not been determined. Clinical correlation isessential. [facility] 2000 panel 91 mg/dL Normal 74-106 [facility] Work Phone: Comment on above: Please note revised GLUCOSE reference range [id number]/02/2018. [facility] 2000 panel 8 1 Normal 5-15 [facility] Work Phone: Comprehensive metabolic 2000 panel 134 mmol/L Abnormal 136-145 [facility] Work Phone: Comprehensive metabolic 2000 panel 3.8 mmol/L Normal 3.5-5.1 [facility] Work Phone: CBC W/Diff, AutomatedOrdered By: Asset Management Analyst on 12-25-2017 Absolute Lymph 2.42 {X10_3/ul} Normal 0.83-4.51 [facility] Work Phone: Absolute Neut 5.8 {X10_3/uL} Normal 2.0-7.7 [facility] Work Phone: Basophils/100 WBC Auto (Bld) 0.3 % Normal 0-1 [facility] Work Phone: Eosinophils/100 WBC Auto (Bld) 1.7 % Normal 0-5 [facility] Work Phone: Erythrocyte distribution width Auto Ratio (RBC) 14.0 % Normal 11.6-14.6 [facility] Work Phone: Hematocrit Auto Volume Fraction (Bld) 38.8 % Normal 37-47 [facility] Work Phone: Hemoglobin mass conc (Bld) 12.7 g/dL Normal 12.0-15.0 [facility] Work Phone: IM GRAN % 0.200 % Normal 0.0-0.9 [facility] Work Phone: Comment on above: IG% - Immature Granu locytes (promyelocytes, myelocytes andmetamyelocytes) > 1% indicates that a LEFT SHIFT is Present. Lymphocytes/100 WBC Auto (Bld) 26.7 % Normal 19-41 [facility] Work Phone: MCH Auto Entitic mass (RBC) 31.4 pg Normal 27.0-32.0 [facility] Work Phone: MCHC Auto mass conc (RBC) 32.7 {g/gl} Normal 32-36 [facility] Work Phone: MCV Auto Entitic volume (RBC) 96.0 fL Normal 81-99 [facility] Work Phone: Monocytes/100 WBC Auto (Bld) 7.7 % Normal 0-10 [facility] Work Phone: Neutrophils/100 WBC Auto (Bld) 63.4 % Normal 47-70 [facility] Work Phone: Platelet mean volume Auto Entitic volume (Bld) 9.1 fL Normal 6.2-12.0 [facility] Work Phone: Platelets Auto #/vol (Bld) 264 10*3/uL Normal 150-450 [facility] Work Phone: RBC Auto #/vol (Bld) 4.04 {M/mm3} Abnormal 4.2-5.4 [facility]: RDW SD 49.2 fL Abnormal 35.1-43.9 [facility] Work Phone: WBC Auto #/vol (Bld) 9.1 10*3/uL Normal 4.4-11.0 [facility] Work Phone: [facility] Metabolic Prof ilOrdered By: Asset Management Analyst on 12-25-2017 [facility] 2000 panel 8.6 mg/dL Normal 8.5-10.1 [facility] Work Phone: Comprehensive metabolic 2000 panel 3.2 g/dL Normal 3.2-5.0 [facility] Work Phone: Comprehensive metabolic 2000 panel 0.80 mg/dL Normal 0.55-1.02 [facility] Work Phone: Comment on above: The validity of the calculated GFR AND GFRAA in patients over70 years has not been determined. Clinical correlation isessential. [facility] 2000 panel 74 mL/min Normal [facility] Work Phone: Comment on above: Non- GFR Calc [facility] 2000 panel 89 mL/min Normal [facility] Work Phone: Comment on above: GFR Calc [facility] 2000 panel 52.47 ml/min Normal [facility] Work Phone: [facility] metabolic 2000 panel 13.7 {RATIO} Normal 10-20 [facility] Work Phone: Comprehensive metabolic 2000 panel 6.7 g/dL Normal 6.4-8.2 [facility] Work Phone: Comprehensive metabolic 2000 panel 3.5 g/dL Normal 2.2-4.2 [facility] Work Phone: Comprehensive metabolic 2000 panel 0.9 {RATIO} Normal 0.9-2.4 [facility] Work Phone: Comprehensive metabolic 2000 panel 94 mg/dL Normal 74-106 [facility] Work Phone: Comment on above: Please note revised GLUCOSE reference range /02/2018. [facility] 2000 panel 26 U/L Normal 15-37 [facility] Work Phone: Comprehensive metabolic 2000 panel 80 U/L Normal 45-117 [facility] Work Phone: Comprehensive metabolic 2000 panel 29 U/L Normal 13-56 [facility] Work Phone: Comment on above: Please note revised ALT reference range [id number]/28/2018. [facility] 2000 panel 0.40 mg/dL Normal 0.20-1.00 [facility] Work Phone: Comprehensive metabolic 2000 panel 135 mmol/L Abnormal 136-145 [facility] Work Phone: Comprehensive metabolic 2000 panel 4.1 mmol/L Normal 3.5-5.1 [facility] Work Phone: Comprehensive metabolic 2000 panel 100 mmol/L Normal 98-107 [facility] Work Phone: Comprehensive metabolic 2000 panel 27.0 mmol/L Normal 21.0-32.0 [facility] Work Phone: Comprehensive metabolic 2000 panel 8 1 Normal 5-15 [facility] Work Phone: Comprehensive metabolic 2000 panel 11 mg/dL Normal 7-18 [facility] Work Phone: CBC W/Diff, AutomatedOrdered By: Asset Management Analyst on 09-15-2017 Absolute Lymph 1.59 {X10_3/ul} Normal 0.83-4.51 [facility] Work Phone: Absolute Neut 5.4 {X10_3/uL} Normal 2.0-7.7 [facility] Work Phone: Basophils/100 WBC Auto (Bld) 0.4 % Normal 0-1 [facility] Work Phone: Eosinophils/100 WBC Auto (Bld) 1.7 % Normal 0-5 [facility] Work Phone: Erythrocyte distribution width Auto Ratio (RBC) 14.5 % Normal 11.6-14.6 [facility] Work Phone: Hematocrit Auto Volume Fraction (Bld) 37.9 % Normal 37-47 [facility] Work Phone: Hemoglobin mass conc (Bld) 12.6 g/dL Normal 12.0-15.0 [facility] Work Phone: IM GRAN % 0.100 % Normal 0.0-0.9 [facility] Work Phone: Comment on above: IG% - Immature Granu locytes (promyelocytes, myelocytes andmetamyelocytes) > 1% indicates that a LEFT SHIFT is Present. Lymphocytes/100 WBC Auto (Bld) 20.5 % Normal 19-41 [facility] Work Phone: MCH Auto Entitic mass (RBC) 32.1 pg Abnormal 27.0-32.0 [facility] Work Phone: MCHC Auto mass conc (RBC) 33.2 {g/gl} Normal 32-36 [facility] Work Phone: MCV Auto Entitic volume (RBC) 96.4 fL Normal 81-99 [facility] Work Phone: Monocytes/100 WBC Auto (Bld) 8.1 % Normal 0-10 [facility] Work Phone: Neutrophils/100 WBC Auto (Bld) 69.2 % Normal 47-70 [facility] Work Phone: Platelet mean volume Auto Entitic volume (Bld) 9.4 fL Normal 6.2-12.0 [facility] Work Phone: Platelets Auto #/vol (Bld) 253 10*3/uL Normal 150-450 [facility] Work Phone: RBC Auto #/vol (Bld) 3.93 {M/mm3} Abnormal 4.2-5.4 [facility] Work Phone: RDW SD 48.5 fL Abnormal 35.1-43.9 [facility] Work Phone: WBC Auto #/vol (Bld) 7.8 10*3/uL Normal 4.4-11.0 [facility] Work Phone: [facility] Metabolic Prof ilOrdered By: Asset Management Analyst on 09-15-2017 [facility] metabolic 2000 panel 0.50 mg/dL Normal 0.20-1.00 [facility] Work Phone: Comprehensive metabolic 2000 panel 138 mmol/L Normal 136-145 [facility] Work Phone: [facility] metabolic 2000 panel 3.9 mmol/L Normal 3.5-5.1 [facility] Work Phone: Comprehensive metabolic 2000 panel 103 mmol/L Normal 98-107 [facility] Work Phone: [facility] metabolic 2000 panel 28.0 mmol/L Normal 21.0-32.0 [facility] Work Phone: [facility] metabolic 2000 panel 7 1 Normal 5-15 [facility] Work Phone: [facility] metabolic 2000 panel 68 U/L Normal 45-117 [facility] Work Phone: [facility] metabolic 2000 panel 24 U/L Normal 15-37 [facility] Work Phone: [facility] metabolic 2000 panel 8.7 mg/dL Normal 8.5-10.1 [facility] Work Phone: [facility] metabolic 2000 panel 0.9 {RATIO} Normal 0.9-2.4 [facility] Work Phone: [facility] metabolic 2000 panel 3.4 g/dL Normal 2.2-4.2 [facility] Work Phone: [facility] metabolic 2000 panel 3.1 g/dL Abnormal 3.4-5.0 [facility] Work Phone: Comment on above: Please note revised Albumin AND Globulin reference rangeeffective 2017. [facility] 2000 panel 6.5 g/dL Normal 6.4-8.2 [facility] Work Phone: [facility] metabolic 2000 panel 15.6 {RATIO} Normal 10-20 [facility] Work Phone: [facility] metabolic 2000 panel 104 mL/min Normal [facility] Work Phone: Comment on above: GFR Calc [facility] 2000 panel 86 mL/min Normal [facility] Work Phone: Comment on above: Non- GFR Calc [facility] 2000 panel 0.70 mg/dL Normal 0.55-1.02 [facility] Work Phone: Comment on above: The validity of the calculated GFR AND GFRAA in patients over70 years has not been determined. Clinical correlation isessential. [facility] 2000 panel 11 mg/dL Normal 7-18 [facility] Work Phone: [facility] metabolic 2000 panel 23 U/L Normal 12-78 [facility] Work Phone: [facility] metabolic 2000 panel 79 mg/dL Normal 70-110 [facility] Work Phone: Lipid ProfileOrdered By: Efraín tem Safe Expert on 06-19-2017 Cholesterol in HDL mass conc 74 mg/dL Normal [facility] Work Phone: Comment on above: The drugs N-Acetylcy steine and Metamizole may falselydepress this assay. Reference Range HDL <40 mg/dL Low HDL Cholesterol HDL >or= 60 mg/dL High HDL Cholesterol Cholesterol in LDL mass conc 70 mg/dL Normal 0-130 [facility] Work Phone: Cholesterol in VLDL mass conc 19 mg/dL Normal 5-40 [facility] Work Phone: Cholesterol mass conc 163 mg/dL Normal Com [facility] Work Phone: Comment on above: <200 mg/dL Desirable 200-240 mg/dL Borderline >240 mg/dL High Risk Triglyceride mass conc 97 mg/dL Normal [facility] Work Phone: Comment on above: The drugs N-Acetylcy steine and Metamizole may falselydepress this assay.Serum Triglycerides Reference Interval Normal <150 mg/dL Borderline high 150 - 199 mg/dL High 200 - 499 mg/dL Very High > or = 500 mg/dL MicroalbOrdered By: Manoj chan on 06-19-2017 Creatinine mass conc 13.0 {mg/g_CRE} Normal [facility] Work Phone: MICROALBUMIN,UR 5.4 mg/L Normal Compre[facility] Work Phone: UR CREAT 41.90 mg/dL Normal [facility] Work Phone: Thyroid Stim Hormone (TSH)Or dered By: Asset Management Analyst on 06-19-2017 Thyrotropin Qn 3.08 {uIU/mL} Normal 0.358-3.74 [facility] Work Phone: Urinalysis, CompleteOrdered By: Asset Management Analyst on 06-19-2017 RBC Test strip #/vol (U) 0 SEEN Normal 0-5 [facility] Work Phone: Urinalysis complete panel - Urine 7.0 1 Normal 5.0 - 8.0 [facility] Work Phone: Urinalysis complete panel - Urine 1.010 1 Normal 1.002-1.030 [facility] Work Phone: Urinalysis complete panel - Urine Negative Normal [facility] Work Phone: Urinalysis complete panel - Urine 25 /ul Abnormal [facility] Work Phone: Urinalysis complete panel - Urine 0 SEEN Normal [facility] Work Phone: Urinalysis complete panel - Urine Clear Normal [facility] Work Phone: Urinalysis complete panel - Urine 0-5 SEEN Normal 5-10 [facility] Work Phone: Urinalysis complete panel - Urine Normal Normal [facility] Work Phone: Urinalysis complete panel - Urine Yellow Normal [facility] Work Phone: CBC W/Diff, AutomatedOrdered By: Asset Management Analyst on 06-05-2017 Absolute Lymph 2.22 {X10_3/ul} Normal 0.83-4.51 Compr ehens[facility] Work Phone: Absolute Neut 6.3 {X10_3/uL} Normal 2.0-7.7 [facility] Work Phone: Basophils/100 WBC Auto (Bld) 0.2 % Normal 0-1 [facility] Work Phone: Eosinophils/100 WBC Auto (Bld) 1.4 % Normal 0-5 [facility] Work Phone: Erythrocyte distribution width Auto Ratio (RBC) 14.3 % Normal 11.6-14.6 [facility] Work Phone: Hematocrit Auto Volume Fraction (Bld) 39.4 % Normal 37-47 [facility] Work Phone: Hemoglobin mass conc (Bld) 13.1 g/dL Normal 12.0-15.0 [facility] Work Phone: IM GRAN % 0.200 % Normal 0.0-0.9 [facility] Work Phone: Comment on above: IG% - Immature Granu locytes (promyelocytes, myelocytes andmetamyelocytes) > 1% indicates that a LEFT SHIFT is Present. Lymphocytes/100 WBC Auto (Bld) 23.9 % Normal 19-41 [facility] Work Phone: MCH Auto Entitic mass (RBC) 31.9 pg Normal 27.0-32.0 [facility] Work Phone: MCHC Auto mass conc (RBC) 33.2 {g/gl} Normal 32-36 [facility] Work Phone: MCV Auto Entitic volume (RBC) 95.9 fL Normal 81-99 [facility] Work Phone: Monocytes/100 WBC Auto (Bld) 6.1 % Normal 0-10 [facility] Work Phone: Neutrophils/100 WBC Auto (Bld) 68.2 % Normal 47-70 [facility] Work Phone: Platelet mean volume Auto Entitic volume (Bld) 9.3 fL Normal 6.2-12.0 [facility] Work Phone: Platelets Auto #/vol (Bld) 269 10*3/uL Normal 150-450 [facility] Work Phone: RBC Auto #/vol (Bld) 4.11 {M/mm3} Abnormal 4.2-5.4 [facility] Work Phone: RDW SD 49.6 fL Abnormal 35.1-43.9 [facility] Work Phone: WBC Auto #/vol (Bld) 9.3 10*3/uL Normal 4.4-11.0 [facility] Internal Medicine Work Phone: Comprehensive Metabolic Prof ilOrdered By: Asset Management Analyst on 06-05-2017 Comprehensive metabolic 2000 panel 5 1 Normal 5-15 [facility] Work Phone: Comprehensive metabolic 2000 panel 17 U/L Normal 15-37 [facility] Work Phone: Comprehensive metabolic 2000 panel 15.1 {RATIO} Normal 10-20 [facility] Work Phone: Comprehensive metabolic 2000 panel 7.0 g/dL Normal 6.4-8.2 [facility] Work Phone: Comprehensive metabolic 2000 panel 3.4 g/dL Normal 3.4-5.0 [facility] Work Phone: Comprehensive metabolic 2000 panel 72 U/L Normal 45-117 [facility] Work Phone: Comprehensive metabolic 2000 panel 3.6 g/dL Abnormal 2.3-3.5 [facility] Work Phone: [facility] metabolic 2000 panel 99 mg/dL Normal 70-110 [facility] Work Phone: Comprehensive metabolic 2000 panel 0.9 {RATIO} Normal 0.9-2.4 [facility] Work Phone: Comprehensive metabolic 2000 panel 8.9 mg/dL Normal 8.5-10.1 [facility] Work Phone: Comprehensive metabolic 2000 panel 75 mL/min Normal [facility] Work Phone: Comment on above: Non- GFR Calc [facility] 2000 panel 21 U/L Normal 12-78 [facility] Work Phone: Comprehensive metabolic 2000 panel 0.40 mg/dL Normal 0.20-1.00 [facility] Work Phone: Comprehensive metabolic 2000 panel 136 mmol/L Normal 136-145 [facility] Work Phone: Comprehensive metabolic 2000 panel 4.0 mmol/L Normal 3.5-5.1 [facility] Work Phone: Comprehensive metabolic 2000 panel 91 mL/min Normal [facility] Work Phone: Comment on above: GFR Calc [facility] 2000 panel 103 mmol/L Normal 98-107 [facility] Work Phone: Comprehensive metabolic 2000 panel 12 mg/dL Normal 7-18 [facility] Work Phone: [facility] metabolic 2000 panel 28.0 mmol/L Normal 21.0-32.0 [facility] Work Phone: Comprehensive metabolic 2000 panel 41.97 ml/min Normal [facility] Work Phone: Comprehensive metabolic 2000 panel 0.79 mg/dL Normal 0.55-1.02 [facility] Work Phone: Comment on above: The validity of the calculated GFR AND GFRAA in patients over70 years has not been determined. Clinical correlation isessential. CBC W/Diff, AutomatedOrdered By: Asset Management Analyst on 02-20-2017 Absolute Lymph 2.58 {X10_3/ul} Normal 0.83-4.51 Compr ehens[facility] Work Phone: Absolute Neut 5.4 {X10_3/uL} Normal 2.0-7.7 [facility] Work Phone: Basophils/100 WBC Auto (Bld) 0.2 % Normal 0-1 [facility] Work Phone: Eosinophils/100 WBC Auto (Bld) 1.5 % Normal 0-5 [facility] Work Phone: Erythrocyte distribution width Auto Ratio (RBC) 14.5 % Normal 11.6-14.6 [facility] Internal Medicine Work Phone: Hematocrit Auto Volume Fraction (Bld) 40.5 % Normal 37-47 [facility] Internal [facility] Work Phone: Hemoglobin mass conc (Bld) 13.0 g/dL Normal 12.0-15.0 [facility] Internal Medicine Work Phone: IM GRAN % 0.100 % Normal 0.0-0.9 [facility] Internal [facility] Work Phone: Comment on above: IG% - Immature Granu locytes (promyelocytes, myelocytes andmetamyelocytes) > 1% indicates that a LEFT SHIFT is Present. Lymphocytes/100 WBC Auto (Bld) 29.8 % Normal 19-41 [facility] Internal Medicine Work Phone: MCH Auto Entitic mass (RBC) 31.0 pg Normal 27.0-32.0 [facility] Internal [facility] Work Phone: MCHC Auto mass conc (RBC) 32.1 {g/gl} Normal 32-36 [facility] Internal [facility] Work Phone: MCV Auto Entitic volume (RBC) 96.7 fL Normal 81-99 [facility] Work Phone: Monocytes/100 WBC Auto (Bld) 5.9 % Normal 0-10 [facility] Work Phone: Neutrophils/100 WBC Auto (Bld) 62.5 % Normal 47-70 [facility] Work Phone: Platelet mean volume Auto Entitic volume (Bld) 9.2 fL Normal 6.2-12.0 [facility] Work Phone: Platelets Auto #/vol (Bld) 256 10*3/uL Normal 150-450 [facility] Work Phone: RBC Auto #/vol (Bld) 4.19 {M/mm3} Abnormal 4.2-5.4 [facility] Work Phone: RDW SD 51.2 fL Abnormal 35.1-43.9 [facility] Work Phone: WBC Auto #/vol (Bld) 8.7 10*3/uL Normal 4.4-11.0 Com [facility] Work Phone: CRPOrdered By: System Manage r on 02-20-2017 CRP High sensitivity method mass conc mg/L Normal 0.0-3.0 [facility] Work Phone: Comment on above: C-Reactive Protein ( CRP) provides useful information for thediagnosis, therapy and monitoring of inflammatory processesand associated diseases. For the evaluation of Relative Riskfor Cardiovascular Disease, a High Sensitivity CRP (HSCRP)should be ordered. [facility] Met[facility] Prof ilOrdered By: Asset Management Analyst on 02-20-2017 [facility] 2000 panel 3.6 g/dL Abnormal 2.3-3.5 [facility] Work Phone: Comprehensive metabolic 2000 panel 82 mL/min Normal [facility] Work Phone: Comment on above: GFR Calc [facility] 2000 panel 4.0 mmol/L Normal 3.5-5.1 [facility] Work Phone: Comprehensive metabolic 2000 panel 140 mmol/L Normal 136-145 [facility] Work Phone: [facility] metabolic 2000 panel 0.50 mg/dL Normal 0.20-1.00 [facility] Work Phone: [facility] metabolic 2000 panel 23 U/L Normal 12-78 [facility] Work Phone: Comprehensive metabolic 2000 panel 74 U/L Normal 45-117 [facility] Work Phone: [facility] metabolic 2000 panel 21 U/L Normal 15-37 [facility] Work Phone: [facility] metabolic 2000 panel 9.0 mg/dL Normal 8.5-10.1 [facility] Work Phone: Comprehensive metabolic 2000 panel 0.9 {RATIO} Normal 0.9-2.4 [facility] Work Phone: Comprehensive metabolic 2000 panel 27.0 mmol/L Normal 21.0-32.0 [facility] Work Phone: [facility] metabolic 2000 panel 3.4 g/dL Normal 3.4-5.0 [facility] Work Phone: Comprehensive metabolic 2000 panel 7.0 g/dL Normal 6.4-8.2 [facility] Work Phone: [facility] metabolic 2000 panel 15.0 {RATIO} Normal 10-20 [facility] Work Phone: Comprehensive metabolic 2000 panel 9 1 Normal 5-15 [facility] Work Phone: Comprehensive metabolic 2000 panel 68 mL/min Normal [facility] Work Phone: Comment on above: Non- GFR Calc [facility] 2000 panel 0.86 mg/dL Normal 0.55-1.02 [facility] Work Phone: Comment on above: The validity of the calculated GFR AND GFRAA in patients over70 years has not been determined. Clinical correlation isessential. [facility] 2000 panel 13 mg/dL Normal 7-18 [facility] Work Phone: Comprehensive metabolic 2000 panel 94 mg/dL Normal 70-110 [facility] Work Phone: Comprehensive metabolic 2000 panel 104 mmol/L Normal 98-107 [facility] Work Phone: Erythrocyte Sed RateOrdered By: Asset Management Analyst on 02-20-2017 SED RATE 24 mm/h Normal 0-30 [facility] Work Phone: CBC W/Diff, AutomatedOrdered By: Asset Management Analyst on 11-07-2016 Absolute Lymph 2.36 {X10_3/ul} Normal 0.83-4.51 Compr ehens[facility] Work Phone: Absolute Neut 5.1 {X10_3/uL} Normal 2.0-7.7 Com[facility] ens[facility] Work Phone: Basophils/100 WBC Auto (Bld) 0.2 % Normal 0-1 [facility] Work Phone: Eosinophils/100 WBC Auto (Bld) 1.1 % Normal 0-5 [facility] Internal [facility] Work Phone: Erythrocyte distribution width Auto Ratio (RBC) 13.7 % Normal 11.6-14.6 [facility] Work Phone: Hematocrit Auto Volume Fraction (Bld) 38.1 % Normal 37-47 [facility] Work Phone: Hemoglobin mass conc (Bld) 12.8 g/dL Normal 12.0-15.0 [facility] Work Phone: IM GRAN % 0.100 % Normal 0.0-0.9 [facility] Work Phone: Comment on above: IG% - Immature Granu locytes (promyelocytes, myelocytes andmetamyelocytes) > 1% indicates that a LEFT SHIFT is Present. Lymphocytes/100 WBC Auto (Bld) 29.2 % Normal 19-41 [facility] Work Phone: MCH Auto Entitic mass (RBC) 31.9 pg Normal 27.0-32.0 [facility] Work Phone: MCHC Auto mass conc (RBC) 33.6 {g/gl} Normal 32-36 [facility] Work Phone: MCV Auto Entitic volume (RBC) 95.0 fL Normal 81-99 [facility] Work Phone: Monocytes/100 WBC Auto (Bld) 5.7 % Normal 0-10 [facility] Work Phone: Neutrophils/100 WBC Auto (Bld) 63.7 % Normal 47-70 [facility] Work Phone: Platelet mean volume Auto Entitic volume (Bld) 9.3 fL Normal 6.2-12.0 [facility] Work Phone: Platelets Auto #/vol (Bld) 286 10*3/uL Normal 150-450 [facility] Work Phone: RBC Auto #/vol (Bld) 4.01 {M/mm3} Abnormal 4.2-5.4 [facility] Work Phone: RDW SD 47.1 fL Abnormal 35.1-43.9 [facility] Work Phone: WBC Auto #/vol (Bld) 8.1 10*3/uL Normal 4.4-11.0 [facility] Work Phone: Comprehensive Metabolic Prof ilOrdered By: Asset Management Analyst on 11-07-2016 Comprehensive metabolic 2000 panel 14.7 {RATIO} Normal 10-20 [facility] Work Phone: Comprehensive metabolic 2000 panel 4.1 mmol/L Normal 3.5-5.1 [facility] Work Phone: Comprehensive metabolic 2000 panel 11 mg/dL Normal 7-18 [facility] Work Phone: Comprehensive metabolic 2000 panel 80 mL/min Normal [facility] Work Phone: Comment on above: Non- GFR Calc [facility] 2000 panel 97 mL/min Normal [facility] Work Phone: Comment on above: GFR Calc [facility] 2000 panel 6.7 g/dL Normal 6.4-8.2 [facility] Work Phone: Comprehensive metabolic 2000 panel 42.62 ml/min Normal [facility] Work Phone: Comprehensive metabolic 2000 panel 107 mg/dL Normal 70-110 [facility] Work Phone: Comprehensive metabolic 2000 panel 3.3 g/dL Abnormal 3.4-5.0 [facility] Work Phone: Comprehensive metabolic 2000 panel 3.4 g/dL Normal 2.3-3.5 [facility] Work Phone: Comprehensive metabolic 2000 panel 1.0 {RATIO} Normal 0.9-2.4 [facility] Work Phone: Comprehensive metabolic 2000 panel 0.75 mg/dL Normal 0.55-1.02 [facility] Work Phone: Comment on above: The validity of the calculated GFR AND GFRAA in patients over70 years has not been determined. Clinical correlation isessential. Comprehensive metabolic 2000 panel 7 1 Normal 5-15 [facility] Work Phone: Comprehensive metabolic 2000 panel 8.6 mg/dL Normal 8.5-10.1 [facility] Work Phone: Comprehensive metabolic 2000 panel 27.0 mmol/L Normal 21.0-32.0 [facility] Work Phone: Comprehensive metabolic 2000 panel 104 mmol/L Normal 98-107 [facility] Work Phone: Comprehensive metabolic 2000 panel 20 U/L Normal 15-37 [facility] Work Phone: Comprehensive metabolic 2000 panel 69 U/L Normal 45-117 [facility] Work Phone: Comprehensive metabolic 2000 panel 21 U/L Normal 12-78 [facility] Work Phone: Comprehensive metabolic 2000 panel 0.40 mg/dL Normal 0.20-1.00 [facility] Work Phone: Comprehensive metabolic 2000 panel 138 mmol/L Normal 136-145 [facility] Work Phone: CBC W/Diff, AutomatedOrdered By: Asset Management Analyst on 07-25-2016 Absolute Lymph 2.36 {X10_3/ul} Normal 0.83-4.51 Compr ehens[facility] Work Phone: Absolute Neut 3.6 {X10_3/uL} Normal 2.0-7.7 [facility] ens[facility] Work Phone: Basophils/100 WBC Auto (Bld) 0.3 % Normal 0-1 [facility] Work Phone: Eosinophils/100 WBC Auto (Bld) 2.1 % Normal 0-5 [facility] Work Phone: Erythrocyte distribution width Auto Ratio (RBC) 14.6 % Normal 11.6-14.6 [facility] Work Phone: Hematocrit Auto Volume Fraction (Bld) 40.1 % Normal 37-47 [facility] Work Phone: Hemoglobin mass conc (Bld) 13.3 g/dL Normal 12.0-15.0 [facility] Work Phone: IM GRAN % 0.100 % Normal 0.0-0.9 [facility] Work Phone: Comment on above: IG% - Immature Granu locytes (promyelocytes, myelocytes andmetamyelocytes) > 1% indicates that a LEFT SHIFT is Present. Lymphocytes/100 WBC Auto (Bld) 35.3 % Normal 19-41 [facility] Work Phone: MCH Auto Entitic mass (RBC) 32.0 pg Normal 27.0-32.0 [facility] Work Phone: MCHC Auto mass conc (RBC) 33.2 {g/gl} Normal 32-36 [facility] Work Phone: MCV Auto Entitic volume (RBC) 96.6 fL Normal 81-99 [facility] Work Phone: Monocytes/100 WBC Auto (Bld) 7.6 % Normal 0-10 [facility] Work Phone: Neutrophils/100 WBC Auto (Bld) 54.6 % Normal 47-70 [facility] Work Phone: Platelet mean volume Auto Entitic volume (Bld) 9.0 fL Normal 6.2-12.0 [facility] Internal [facility] Work Phone: Platelets Auto #/vol (Bld) 278 10*3/uL Normal 150-450 [facility] Work Phone: RBC Auto #/vol (Bld) 4.15 {M/mm3} Abnormal 4.2-5.4 [facility] Work Phone: RDW SD 51.2 fL Abnormal 35.1-43.9 [facility] Work Phone: WBC Auto #/vol (Bld) 6.7 10*3/uL Normal 4.4-11.0 [facility] Work Phone: Comprehensive Metabolic Prof ilOrdered By: Asset Management Analyst on 07-25-2016 Comprehensive metabolic 2000 panel 136 mmol/L Normal 136-145 [facility] Work Phone: Comprehensive metabolic 2000 panel 4.2 mmol/L Normal 3.5-5.1 [facility] Work Phone: Comprehensive metabolic 2000 panel 104 mmol/L Normal 98-107 [facility] Work Phone: Comprehensive metabolic 2000 panel 26.0 mmol/L Normal 21.0-32.0 [facility] Work Phone: Comprehensive metabolic 2000 panel 9 mg/dL Normal 7-18 [facility] Work Phone: Comprehensive metabolic 2000 panel 6 1 Normal 5-15 [facility] Work Phone: Comprehensive metabolic 2000 panel 96 mg/dL Normal 70-110 [facility] Work Phone: Comprehensive metabolic 2000 panel 13.5 {RATIO} Normal 10-20 [facility] Work Phone: Comprehensive metabolic 2000 panel 0.67 mg/dL Normal 0.55-1.20 [facility] Work Phone: Comment on above: The validity of the calculated GFR AND GFRAA in patients over70 years has not been determined. Clinical correlation isessential. Comprehensive metabolic 2000 panel 7.0 g/dL Normal 6.4-8.2 [facility] Work Phone: Comprehensive metabolic 2000 panel 3.3 g/dL Abnormal 3.4-5.0 [facility] Work Phone: Comprehensive metabolic 2000 panel 3.7 g/dL Abnormal 2.3-3.5 [facility] Work Phone: Comprehensive metabolic 2000 panel 0.9 {RATIO} Normal 0.9-2.4 [facility] Work Phone: Comprehensive metabolic 2000 panel 111 mL/min Normal [facility] Work Phone: Comment on above: GFR Calc [facility] 2000 panel 8.7 mg/dL Normal 8.5-10.1 [facility] Work Phone: Comprehensive metabolic 2000 panel 21 U/L Normal 15-37 [facility] Work Phone: Comprehensive metabolic 2000 panel 77 U/L Normal 50-136 [facility] Work Phone: Comprehensive metabolic 2000 panel 22 U/L Normal 12-78 [facility] Work Phone: Comprehensive metabolic 2000 panel 0.70 mg/dL Normal 0.20-1.00 [facility] Work Phone: Comprehensive metabolic 2000 panel 92 mL/min Normal [facility] Work Phone: Comment on above: Non- GFR Calc Lipid ProfileOrdered By: Efraín tem Safe Expert on 07-25-2016 Cholesterol in HDL mass conc 74 mg/dL Normal [facility] Work Phone: Comment on above: The drugs N-Acetylcy steine and Metamizole may falsely deressthis assay. Reference Range HDL <40 mg/dL Low HDL Cholesterol HDL >or= 60 mg/dL High HDL Cholesterol Cholesterol in LDL mass conc 91 mg/dL Normal 0-130 [facility] Work Phone: Cholesterol in VLDL mass conc 18 mg/dL Normal 5-40 [facility] Work Phone: Cholesterol mass conc 183 mg/dL Normal Com [facility] Work Phone: Comment on above: <200 mg/dL Desirable 200-240 mg/dL Borderline >240 mg/dL High Risk Triglyceride mass conc 91 mg/dL Normal [facility] Work Phone: Comment on above: The drugs N-Acetylcy steine and Metamizole may falsely deressthis assay.Serum Triglycerides Reference Interval Normal <150 mg/dL Borderline high 150 - 199 mg/dL High 200 - 499 mg/dL Very High > or = 500 mg/dL MicroalbOrdered By: Manoj chan on 07-25-2016 Creatinine mass conc 20.7 {mg/g_CRE} Normal [facility] Work Phone: MICROALBUMIN,UR 5.0 mg/L Normal [facility] Work Phone: UR CREAT 24.40 mg/dL Normal [facility] Work Phone: Thyroid Stim Hormone (TSH)Or dered By: Asset Management Analyst on 07-25-2016 Thyrotropin Qn 1.90 {uIU/mL} Normal 0.358-3.74 [facility] Work Phone: Urinalysis, CompleteOrdered By: Asset Management Analyst on 07-25-2016 RBC Test strip #/vol (U) 0 SEEN Normal 0-5 [facility] Work Phone: Urinalysis complete panel - Urine 7.0 1 Normal 5.0 - 8.0 [facility] Work Phone: Urinalysis complete panel - Urine Normal Normal [facility] Work Phone: Urinalysis complete panel - Urine Negative Normal [facility] Work Phone: Urinalysis complete panel - Urine 100 /ul Abnormal [facility] Work Phone: Urinalysis complete panel - Urine 0-5 SEEN Normal 5-10 [facility] Work Phone: Urinalysis complete panel - Urine RARE Normal [facility] Work Phone: Urinalysis complete panel - Urine 0 SEEN Normal [facility] Work Phone: Urinalysis complete panel - Urine Clear Normal [facility] Work Phone: Urinalysis complete panel - Urine 1.010 1 Normal 1.002-1.030 [facility] Work Phone: Urinalysis complete panel - Urine Yellow Normal [facility] Work Phone: Vitamin D,25 HydroxyOrdered By: Asset Management Analyst on 07-25-2016 Vitamin D 25-OH 31.1 ng/mL Normal [facility] Work Phone: Comment on above: Vitamin D 25(OH) Sta tus Range Deficiency <20 ng/mL (50nmol/L) Insuffciency 20 - 30 ng/mL (50 - 75 nmol/L) Sufficiency 30 - 100 ng/mL (75 - 250 nmol/L) Toxicity >100 ng/mL (>250 nmol/L) CBC W/Diff, AutomatedOrdered By: Asset Management Analyst on 03-21-2016 Absolute Lymph 2.26 {X10_3/ul} Normal 0.83-4.51 Compr ehens[facility] Work Phone: Absolute Neut 5.4 {X10_3/uL} Normal 2.0-7.7 [facility] Work Phone: Basophils/100 WBC Auto (Bld) 0.2 % Normal 0-1 [facility] Work Phone: Eosinophils/100 WBC Auto (Bld) 1.8 % Normal 0-5 [facility] Work Phone: Erythrocyte distribution width Auto Ratio (RBC) 14.1 % Normal 11.6-14.6 [facility] Work Phone: Hematocrit Auto Volume Fraction (Bld) 37.3 % Normal 37-47 [facility] Work Phone: Hemoglobin mass conc (Bld) 12.5 g/dL Normal 12.0-15.0 [facility] Internal Medicine Work Phone: IM GRAN % 0.100 % Normal 0.0-0.9 [facility] Work Phone: Comment on above: IG% - Immature Granu locytes (promyelocytes, myelocytes andmetamyelocytes) > 1% indicates that a LEFT SHIFT is Present. Lymphocytes/100 WBC Auto (Bld) 27.2 % Normal 19-41 [facility] Work Phone: MCH Auto Entitic mass (RBC) 32.1 pg Abnormal 27.0-32.0 [facility] Work Phone: MCHC Auto mass conc (RBC) 33.5 {g/gl} Normal 32-36 [facility] Work Phone: MCV Auto Entitic volume (RBC) 95.9 fL Normal 81-99 [facility] Work Phone: Monocytes/100 WBC Auto (Bld) 6.1 % Normal 0-10 [facility] Work Phone: Neutrophils/100 WBC Auto (Bld) 64.6 % Normal 47-70 [facility] Work Phone: Platelet mean volume Auto Entitic volume (Bld) 9.2 fL Normal 6.2-12.0 [facility] Work Phone: Platelets Auto #/vol (Bld) 280 10*3/uL Normal 150-450 [facility] Work Phone: RBC Auto #/vol (Bld) 3.89 {M/mm3} Abnormal 4.2-5.4 [facility] Work Phone: RDW SD 47.3 fL Abnormal 35.1-43.9 [facility] Work Phone: WBC Auto #/vol (Bld) 8.3 10*3/uL Normal 4.4-11.0 [facility] Work Phone: [facility] Metabolic Prof ilOrdered By: Asset Management Analyst on 03-21-2016 [facility] 2000 panel 4.1 mmol/L Normal 3.5-5.1 [facility] Work Phone: [facility] metabolic 2000 panel 137 mmol/L Normal 136-145 [facility] Work Phone: [facility] metabolic 2000 panel 6.7 g/dL Normal 6.4-8.2 [facility] Work Phone: [facility] metabolic 2000 panel 0.60 mg/dL Normal 0.20-1.00 [facility] Work Phone: [facility] metabolic 2000 panel 14.5 {RATIO} Normal 10-20 [facility] Work Phone: [facility] metabolic 2000 panel 96 mL/min Normal [facility] Work Phone: Comment on above: GFR Calc [facility] 2000 panel 0.76 mg/dL Normal 0.55-1.20 [facility] Work Phone: Comment on above: The validity of the calculated GFR AND GFRAA in patients over70 years has not been determined. Clinical correlation isessential. [facility] 2000 panel 22 U/L Normal 12-78 [facility] Work Phone: [facility] metabolic 2000 panel 28.0 mmol/L Normal 21.0-32.0 [facility] Work Phone: [facility] metabolic 2000 panel 67 U/L Normal 50-136 [facility] Work Phone: [facility] metabolic 2000 panel 20 U/L Normal 15-37 [facility] Work Phone: [facility] metabolic 2000 panel 8.5 mg/dL Normal 8.5-10.1 [facility] Work Phone: [facility] metabolic 1999 panel 11 mg/dL Normal 7-18 [facility] Work Phone: [facility] metabolic 2000 panel 0.9 {RATIO} Normal 0.9-2.4 [facility] Work Phone: [facility] metabolic 1999 panel 3.5 g/dL Normal 2.3-3.5 [facility] Work Phone: [facility] metabolic 2000 panel 119 mg/dL Abnormal 70-110 [facility] Work Phone: Comment on above: Fasting Glucose resu lt from 110 to <126 mg/dLsuggests IMPAIRED HOMEOSTASIS per A.D.A. criteria. [facility] 1999 panel 79 mL/min Normal [facility] Work Phone: Comment on above: Non- GFR Calc [facility] 1999 panel 3.2 g/dL Abnormal 3.4-5.0 [facility] Work Phone: [facility] metabolic 2000 panel 5 1 Normal 5-15 [facility] Work Phone: [facility] metabolic 1999 panel 104 mmol/L Normal 98-107 [facility] Work Phone: CBC W/Diff, AutomatedOrdered By: Asset Management Analyst on 01-01-2016 Absolute Lymph 2.16 {X10_3/ul} Normal 0.83-4.51 Compr ehensive [facility] Work Phone: Absolute Neut 4.7 {X10_3/uL} Normal 2.0-7.7 Compre[facility] ens[facility] Work Phone: Basophils/100 WBC Auto (Bld) 0.4 % Normal 0-1 [facility] Work Phone: Eosinophils/100 WBC Auto (Bld) 1.5 % Normal 0-5 [facility] Work Phone: Erythrocyte distribution width Auto Ratio (RBC) 13.9 % Normal 11.6-14.6 [facility] Work Phone: Hematocrit Auto Volume Fraction (Bld) 39.8 % Normal 37-47 [facility] Work Phone: Hemoglobin mass conc (Bld) 13.3 g/dL Normal 12.0-15.0 [facility] Work Phone: IM GRAN % 0.100 % Normal 0.0-0.9 [facility] Work Phone: Comment on above: IG% - Immature Granu locytes (promyelocytes, myelocytes andmetamyelocytes) > 1% indicates that a LEFT SHIFT is Present. Lymphocytes/100 WBC Auto (Bld) 27.6 % Normal 19-41 [facility] Work Phone: MCH Auto Entitic mass (RBC) 31.8 pg Normal 27.0-32.0 [facility] Work Phone: MCHC Auto mass conc (RBC) 33.4 {g/gl} Normal 32-36 [facility] Work Phone: MCV Auto Entitic volume (RBC) 95.2 fL Normal 81-99 [facility] Work Phone: Monocytes/100 WBC Auto (Bld) 10.8 % Abnormal 0-10 [facility] Work Phone: Neutrophils/100 WBC Auto (Bld) 59.6 % Normal 47-70 [facility] Work Phone: Platelet mean volume Auto Entitic volume (Bld) 9.5 fL Normal 6.2-12.0 [facility] Work Phone: Platelets Auto #/vol (Bld) 275 10*3/uL Normal 150-450 [facility] Work Phone: RBC Auto #/vol (Bld) 4.18 {M/mm3} Abnormal 4.2-5.4 [facility] Work Phone: RDW SD 48.0 fL Abnormal 35.1-43.9 [facility] Work Phone: WBC Auto #/vol (Bld) 7.8 10*3/uL Normal 4.4-11.0 [facility] prehensive Internal Medicine Work Phone: CCP IgG AntibodiesOrdered By : Asset Management Analyst on 01-01-2016 Cyclic citrullinated peptide IgG Qn > 250 Abnormal 0-19 [facility] Work Phone: Comment on above: Negative <20 Weak po sitive 20 - 39 Moderate positive 40 - 59 Strong positive >59Performed at: [facility] [id number] Director: Nato Abbasi MD, Phone: [phone] [facility] Met[facility] Prof ilOrdered By: Asset Management Analyst on 01-01-2016 [facility] 2000 panel 0.40 mg/dL Normal 0.20-1.00 [facility] Work Phone: [facility] metabolic 2000 panel 106 mL/min Normal [facility] Work Phone: Comment on above: GFR Calc [facility] 2000 panel 7.2 g/dL Normal 6.4-8.2 [facility] Work Phone: [facility] metabolic 2000 panel 3.4 g/dL Normal 3.4-5.0 [facility] Work Phone: [facility] metabolic 2000 panel 3.8 g/dL Abnormal 2.3-3.5 [facility] Work Phone: [facility] metabolic 2000 panel 0.9 {RATIO} Normal 0.9-2.4 [facility] Work Phone: [facility] metabolic 2000 panel 9.1 mg/dL Normal 8.5-10.1 [facility] Work Phone: [facility] 2000 panel 26 U/L Normal 15-37 [facility] Work Phone: [facility] metabolic 2000 panel 71 U/L Normal 50-136 [facility] Work Phone: [facility] metabolic 2000 panel 23 U/L Normal 12-78 [facility] Work Phone: [facility] metabolic 2000 panel 14.4 {RATIO} Normal 10-20 [facility] Work Phone: [facility] metabolic 2000 panel 139 mmol/L Normal 136-145 [facility] Work Phone: [facility] metabolic 2000 panel 4.0 mmol/L Normal 3.5-5.1 [facility] Work Phone: [facility] metabolic 2000 panel 104 mmol/L Normal 98-107 [facility] Work Phone: [facility] metabolic 2000 panel 88 mL/min Normal [facility] Work Phone: Comment on above: Non- GFR Calc [facility] 2000 panel 80 mg/dL Normal 70-110 [facility] Work Phone: [facility] metabolic 2000 panel 29.0 mmol/L Normal 21.0-32.0 [facility] Work Phone: [facility] metabolic 2000 panel 10 mg/dL Normal 7-18 [facility] Work Phone: [facility] metabolic 2000 panel 0.70 mg/dL Normal 0.55-1.20 [facility] Work Phone: Comment on above: The validity of the calculated GFR AND GFRAA in patients over70 years has not been determined. Clinical correlation isessential. [facility] 2000 panel 6 1 Normal 5-15 [facility] Work Phone: Rheumatoid FactorOrdered By: Asset Management Analyst on 01-01-2016 Rheumatoid factor Qn 92.0 {IU/mL} Abnormal [facility] Work Phone: CBC W/Diff, AutomatedOrdered By: Asset Management Analyst on 09-11-2015 Absolute Lymph 1.76 {X10_3/ul} Normal 0.83-4.51 Compr [facility] Work Phone: Absolute Neut 3.7 {X10_3/uL} Normal 2.0-7.7 Compreh ensive [facility] Work Phone: Basophils/100 WBC Auto (Bld) 0.5 % Normal 0-1 [facility] Work Phone: Eosinophils/100 WBC Auto (Bld) 2.4 % Normal 0-5 [facility] Work Phone: Erythrocyte distribution width Auto Ratio (RBC) 14.2 % Normal 11.6-14.6 [facility] Work Phone: Hematocrit Auto Volume Fraction (Bld) 39.6 % Normal 37-47 [facility] Work Phone: Hemoglobin mass conc (Bld) 12.9 g/dL Normal 12.0-15.0 [facility] Work Phone: IM GRAN % 0.200 % Normal 0.0-0.9 [facility] Work Phone: Comment on above: IG% - Immature Granu locytes (promyelocytes, myelocytes andmetamyelocytes) > 1% indicates that a LEFT SHIFT is Present. Lymphocytes/100 WBC Auto (Bld) 28.3 % Normal 19-41 [facility] Work Phone: MCH Auto Entitic mass (RBC) 31.7 pg Normal 27.0-32.0 [facility] Work Phone: MCHC Auto mass conc (RBC) 32.6 {g/gl} Normal 32-36 [facility] Work Phone: MCV Auto Entitic volume (RBC) 97.3 fL Normal 81-99 [facility] Work Phone: Monocytes/100 WBC Auto (Bld) 9.8 % Normal 0-10 [facility] Work Phone: Neutrophils/100 WBC Auto (Bld) 58.8 % Normal 47-70 [facility] Work Phone: Platelet mean volume Auto Entitic volume (Bld) 9.0 fL Normal 6.2-12.0 [facility] Work Phone: Platelets Auto #/vol (Bld) 246 10*3/uL Normal 150-450 [facility] Work Phone: RBC Auto #/vol (Bld) 4.07 {M/mm3} Abnormal 4.2-5.4 [facility] Work Phone: RDW SD 50.3 fL Abnormal 35.1-43.9 [facility] Work Phone: WBC Auto #/vol (Bld) 6.2 10*3/uL Normal 4.4-11.0 [facility] prehensive Internal Medicine Work Phone: [facility] Metabolic Prof ilOrdered By: Asset Management Analyst on 09-11-2015 [facility] 2000 panel 74 U/L Normal 50-136 [facility] Work Phone: [facility] metabolic 2000 panel 3 1 Abnormal 5-15 [facility] Work Phone: [facility] metabolic 2000 panel 24 U/L Normal 12-78 [facility] Work Phone: [facility] metabolic 2000 panel 0.40 mg/dL Normal 0.20-1.00 [facility] Work Phone: [facility] metabolic 2000 panel 26 U/L Normal 15-37 [facility] Work Phone: [facility] metabolic 2000 panel 98 mL/min Normal [facility] Work Phone: Comment on above: GFR Calc [facility] 2000 panel 31.0 mmol/L Normal 21.0-32.0 [facility] Work Phone: [facility] metabolic 2000 panel 7.0 g/dL Normal 6.4-8.2 [facility] Work Phone: [facility] metabolic 2000 panel 8.6 mg/dL Normal 8.5-10.1 [facility] Work Phone: [facility] metabolic 2000 panel 104 mmol/L Normal 98-107 [facility] Work Phone: [facility] metabolic 2000 panel 81 mL/min Normal [facility] Work Phone: Comment on above: Non- GFR Calc [facility] 2000 panel 0.9 {RATIO} Normal 0.9-2.4 [facility] Work Phone: [facility] metabolic 2000 panel 10.7 {RATIO} Normal 10-20 [facility] Work Phone: [facility] metabolic 2000 panel 0.75 mg/dL Normal 0.55-1.20 [facility] Work Phone: Comment on above: The validity of the calculated GFR AND GFRAA in patients over70 years has not been determined. Clinical correlation isessential. [facility] 2000 panel 3.3 g/dL Abnormal 3.4-5.0 [facility] Work Phone: [facility] metabolic 2000 panel 8 mg/dL Normal 7-18 [facility] Work Phone: [facility] metabolic 2000 panel 77 mg/dL Normal 70-110 [facility] Work Phone: [facility] metabolic 1999 panel 3.7 g/dL Abnormal 2.3-3.5 [facility] Work Phone: [facility] metabolic 1999 panel 3.7 mmol/L Normal 3.5-5.1 [facility] Work Phone: [facility] metabolic 1999 panel 138 mmol/L Normal 136-145 [facility] Work Phone: [facility] metabolic 2000 panel 43.27 ml/min Normal [facility] Work Phone: FECAL OCCULT- Tubes sent jaskaran e ([id number])Ordered By: Octavio Murphy on 06-07-2015 Hemoglobin.gastrointest inal Ql (St) Negative Normal [facility] Work Phone: FECAL OCCULT- Tubes sent jaskaran e ([phone])on 06-07-2015 Hemoglobin.gastrointest inal Ql (Stl) Negative Normal [facility]; [facility] Work Phone: Protein Electro.Ur-RandomOrd ered By: Asset Management Analyst on 06-05-2015 ALBUMIN,UR 30.0 % Normal [facility] Work Phone: [id number],U 5.4 % Normal [facility] Work Phone: [id number],U 19.4 % Normal [facility] Work Phone: BETA GLOB,U 26.5 % Normal [facility] Work Phone: GAMMA GLOB,U 18.6 % Normal Comprehens[facility] e [facility] Work Phone: M-SPIKE,U Normal [facility] Work Phone: Comment on above: Not Observed Protein mass conc g/dL Normal 0.0-15.0 Compre[facility] ens[facility] Work Phone: Comment on above: Verified by repeat analysis Protein mass conc Comment Normal Compre[facility] ens[facility] Work Phone: Comment on above: Protein electrophore sis scan will follow via computer,mail, or shaft repairer delivery.Performed at: [address] [id number] Director: Michael Steven PhD, Phone: [phone] Protein Electroph, SOrdered By: Asset Management Analyst on 06-05-2015 Albumin mass conc 3.5 g/dL Normal 3.2-5.6 Compre[facility] ens[facility] Work Phone: Albumin/Globulin mass ratio 1.3 {ratio} Normal 0.7-2.0 [facility] Work Phone: ALPHA-1 GLOBUL 0.2 g/dL Normal 0.1-0.4 [facility] Work Phone: ALPHA-2 GLOBUL 0.7 g/dL Normal 0.4-1.2 [facility] Work Phone: BETA GLOBULIN 0.9 g/dL Normal 0.6-1.3 Comprehensi ve [facility] Medicine Work Phone: GAMMA GLOBULIN 1.0 g/dL Normal 0.5-1.6 [facility] Work Phone: Globulin Calculated mass conc (S) 2.7 g/dL Normal 2.0-4.5 [facility] Work Phone: M-SPIKE Normal [facility] Work Phone: Comment on above: Not Observed NOTE: Comment Normal [facility] Work Phone: Comment on above: The SPE pattern appe ars essentially unremarkable. Evidenceof monoclonal protein is not apparent. Protein electrophore sis scan will follow via computer,mail, or shaft repairer delivery. Protein mass conc 6.2 g/dL Normal 6.0-8.5 Com[facility] ens[facility] Work Phone: CBC W/Diff, AutomatedOrdered By: Asset Management Analyst on 05-25-2015 Absolute Lymph 2.28 {X10_3/ul} Normal 0.83-4.51 Compr ehensive [facility] Work Phone: Absolute Neut 4.0 {X10_3/uL} Normal 2.0-7.7 Compre[facility] ens[facility] Work Phone: Basophils/100 WBC Auto (Bld) 0.3 % Normal 0-1 [facility] Work Phone: Eosinophils/100 WBC Auto (Bld) 2.7 % Normal 0-5 [facility] Work Phone: Erythrocyte distribution width Auto Ratio (RBC) 13.7 % Normal 11.6-14.6 [facility] Work Phone: Hematocrit Auto Volume Fraction (Bld) 42.0 % Normal 37-47 [facility] Work Phone: Hemoglobin mass conc (Bld) 14.1 g/dL Normal 12.0-15.0 [facility] Work Phone: IM GRAN % 0.100 % Normal 0.0-0.9 [facility] Work Phone: Comment on above: IG% - Immature Granu locytes (promyelocytes, myelocytes andmetamyelocytes) > 1% indicates that a LEFT SHIFT is Present. Lymphocytes/100 WBC Auto (Bld) 32.2 % Normal 19-41 [facility] Work Phone: MCH Auto Entitic mass (RBC) 32.1 pg Abnormal 27.0-32.0 [facility] Work Phone: MCHC Auto mass conc (RBC) 33.6 {g/gl} Normal 32-36 [facility] Work Phone: MCV Auto Entitic volume (RBC) 95.7 fL Normal 81-99 [facility] Work Phone: Monocytes/100 WBC Auto (Bld) 8.5 % Normal 0-10 [facility] Work Phone: Neutrophils/100 WBC Auto (Bld) 56.2 % Normal 47-70 [facility] Work Phone: Platelet mean volume Auto Entitic volume (Bld) 9.2 fL Normal 6.2-12.0 [facility] Work Phone: Platelets Auto #/vol (Bld) 241 10*3/uL Normal 150-450 [facility] Work Phone: RBC Auto #/vol (Bld) 4.39 {M/mm3} Normal 4.2-5.4 [facility] Work Phone: RDW SD 47.8 fL Abnormal 35.1-43.9 [facility] Work Phone: WBC Auto #/vol (Bld) 7.1 10*3/uL Normal 4.4-11.0 Com prehensive [facility] Work Phone: Comprehensive Metabolic Prof ilOrdered By: Asset Management Analyst on 05-25-2015 [facility] 2000 panel 3.8 g/dL Abnormal 2.3-3.5 [facility] Work Phone: [facility] metabolic 2000 panel 93 mg/dL Normal 70-110 [facility] Work Phone: [facility] metabolic 2000 panel 10 mg/dL Normal 7-18 [facility] Work Phone: [facility] metabolic 2000 panel 0.67 mg/dL Normal 0.55-1.20 [facility] Work Phone: Comment on above: Please note revised CREATININE reference range tinumimhy25/22/2015. [facility] 2000 panel 14.9 {RATIO} Normal 10-20 [facility] Work Phone: [facility] metabolic 2000 panel 7 1 Normal 5-15 [facility] Work Phone: [facility] metabolic 2000 panel 28.0 mmol/L Normal 21.0-32.0 [facility] Work Phone: [facility] metabolic 2000 panel 102 mmol/L Normal 98-107 [facility] Work Phone: [facility] metabolic 2000 panel 4.3 mmol/L Normal 3.5-5.1 [facility] Work Phone: [facility] metabolic 2000 panel 137 mmol/L Normal 136-145 [facility] Work Phone: [facility] metabolic 2000 panel 0.60 mg/dL Normal 0.20-1.00 [facility] Work Phone: [facility] metabolic 2000 panel 19 U/L Normal 12-78 [facility] Work Phone: [facility] metabolic 2000 panel 73 U/L Normal 50-136 [facility] Work Phone: [facility] metabolic 2000 panel 24 U/L Normal 15-37 [facility] Work Phone: [facility] metabolic 2000 panel 8.7 mg/dL Normal 8.5-10.1 [facility] Work Phone: [facility] metabolic 2000 panel 0.9 {RATIO} Normal 0.9-2.4 [facility] Work Phone: [facility] metabolic 2000 panel 7.3 g/dL Normal 6.4-8.2 [facility] Work Phone: [facility] metabolic 2000 panel 3.5 g/dL Normal 3.4-5.0 [facility] Work Phone: Lipid ProfileOrdered By: Efraín tem Safe Expert on 05-25-2015 Cholesterol in HDL mass conc 57 mg/dL Normal [facility] Work Phone: Comment on above: Reference Range HDL <40 mg/dL Low HDL Cholesterol HDL >or= 60 mg/dL High HDL Cholesterol Cholesterol in LDL mass conc 100 mg/dL Normal 0-130 [facility] Work Phone: Cholesterol in VLDL mass conc 24 mg/dL Normal 5-40 [facility] Work Phone: Cholesterol mass conc 181 mg/dL Normal Com prehensive [facility] Work Phone: Comment on above: <200 mg/dL Desirable 200-240 mg/dL Borderline >240 mg/dL High Risk Triglyceride mass conc 118 mg/dL Normal Co [facility] Work Phone: Comment on above: Serum Triglycerides Reference Interval Normal <150 mg/dL Borderline high 150 - 199 mg/dL High 200 - 499 mg/dL Very High > or = 500 mg/dL MicroalbOrdered By: Manoj chan on 05-25-2015 Creatinine mass conc 12.0 {mg/g_CRE} Normal [facility] Work Phone: MICROALBUMIN,UR 9.5 mg/L Normal Comprehen [facility] Internal Medicine Work Phone: UR CREAT 75.80 mg/dL Normal [facility] Work Phone: Thyroid Stim Hormone (TSH)Or dered By: Asset Management Analyst on 05-25-2015 Thyrotropin Qn 2.01 {uIU/mL} Normal 0.358-3.74 Compreh ensive [facility] Medicine Work Phone: Urinalysis, Routine (Dipstic k)Ordered By: Asset Management Analyst on 05-25-2015 CLARITY Sl. Cloudy Normal [facility] Work Phone: COLOR Yellow Normal [facility] Work Phone: GLUCOSE, UR Normal Normal [facility] Work Phone: LEUK ESTERASE 500 /ul Abnormal Comprehensi ve Internal Medicine Work Phone: NITRITE UR Negative Normal [facility] Work Phone: OCCULT BLOOD-UR 10 /ul Abnormal Comprehen sive [facility] Medicine Work Phone: pH UR 8.0 1 Normal 5.0 - 8.0 [facility] Work Phone: SP.GR. DIPSTX 1.010 1 Normal 1.002-1.030 Comprehens dominic [facility] Work Phone: Vitamin D,25 HydroxyOrdered By: Asset Management Analyst on 05-25-2015 Vitamin D 25-OH 33.5 ng/mL Normal Comprehen sive [facility] Work Phone: Comment on above: Vitamin D 25(OH) Sta tus Range Deficiency <20 ng/mL (50nmol/L) Insuffciency 20 - 30 ng/mL (50 - 75 nmol/L) Sufficiency 30 - 100 ng/mL (75 - 250 nmol/L) Toxicity >100 ng/mL (>250 nmol/L) CBCDOrdered By: System Manag er on 07-11-2010 Basophils/100 WBC Auto (Bld) 0.3 % Normal 0-1 [facility] Work Phone: Eosinophils/100 WBC Auto (Bld) 3.8 % Normal 0-5 [facility] Work Phone: Erythrocyte distribution width Auto Ratio (RBC) 14.8 % Abnormal 11.6-14.6 [facility] Work Phone: Hematocrit Auto Volume Fraction (Bld) 38.9 % Normal 37-47 [facility] Work Phone: Hemoglobin mass conc (Bld) 13.1 g/dL Normal 12.0-16.0 [facility] Work Phone: Lymphocytes/100 WBC Auto (Bld) 17.8 % Abnormal 19-41 [facility] Work Phone: MCH Auto Entitic mass (RBC) 33.6 pg Abnormal 27.0-32.0 [facility] Work Phone: MCHC Auto mass conc (RBC) 33.6 g/dL Normal 32-36 [facility] Work Phone: MCV Auto Entitic volume (RBC) 100.1 fL Abnormal 81-99 [facility] Work Phone: Monocytes/100 WBC Auto (Bld) 6.2 % Normal 0-10 [facility] Work Phone: Neutrophils Auto #/vol (Bld) 5.3 3/uL Normal 2.0-7.7 [facility] Work Phone: Neutrophils/100 WBC Auto (Bld) 71.9 % Abnormal 47-70 [facility] Work Phone: Platelet mean volume Auto Entitic volume (Bld) 7.3 fL Normal 6.5-12.0 [facility] Work Phone: Platelets Auto #/vol (Bld) 243 10*3/uL Normal 150-450 [facility] Work Phone: RBC Auto #/vol (Bld) 3.89 {M/mm3} Abnormal 4.2-5.4 Co [facility] Work Phone: WBC Auto #/vol (Bld) 7.3 10*3/uL Normal 4.4-11.0 Com prehensive [facility] Work Phone: COMP METABOLICOrdered By: Sy stem Safe Expert on 07-11-2010 Albumin mass conc 3.2 g/dL Abnormal 3.4-5.0 Compreh ensive [facility] Work Phone: Albumin/Globulin mass ratio 0.9 {RATIO} Normal 0.9-2.4 [facility] Work Phone: ALP enzyme act/vol 70 U/L Normal 50-136 Compre hensive [facility] Work Phone: ALT enzyme act/vol 38 U/L Normal 12-78 Compre [facility] Internal Medicine Work Phone: Anion gap 3 molar conc 6 mmol/L Normal 5-15 Co [facility] Work Phone: AST enzyme act/vol 38 U/L Abnormal 15-37 Compre [facility] Internal Medicine Work Phone: Bilirubin mass conc 0.40 mg/dL Normal 0.00-1.00 Compr ensive [facility] Medicine Work Phone: Calcium mass conc 8.1 mg/dL Abnormal 8.5-10.1 Compreh [facility] Internal Medicine Work Phone: Chloride molar conc 101 mmol/L Normal 98-107 Compr [facility] Internal Medicine Work Phone: CO2 molar conc 29.0 mmol/L Normal 21.0-32.0 Comprehen [facility] Internal Medicine Work Phone: Creatinine mass conc 0.7 mg/dL Normal 0.6-1.0 [facility] Internal Medicine Work Phone: GFR/1.73 sq M predicted among blacks MDRD vol rate/area (S/P/Bld) 107 mL/min/{1.73_m2} Normal [facility] Internal Medicine Work Phone: GFR/1.73 sq M.predicted MDRD vol rate/area 88 mL/min/{1.73_m2} Normal Comprehen [facility] Internal Medicine Work Phone: Globulin Calculated mass conc (S) 3.6 g/dL Normal 2.7-4.2 [facility] Work Phone: Glucose mass conc 95 mg/dL Normal 70-110 [facility] Work [facility]: Potassium molar conc 4.3 mmol/L Normal 3.5-5.1 [facility] Work Phone: Protein mass conc 6.8 g/dL Normal 6.4-8.2 [facility] Work Phone: Sodium molar conc 136 mmol/L Normal 136-145 Compreh ensive [facility] Work Phone: Urea nitrogen mass conc 9 mg/dL Normal 7-18 C omprehensive [facility] Work Phone: Urea nitrogen/Creatinine mass ratio 12.9 {RATIO} Normal 10-20 [facility] Work Phone: CBCDOrdered By: System Manag er on 03-19-2010 Basophils/100 WBC Auto (Bld) 0.4 % Normal 0-1 [facility] Work Phone: Eosinophils/100 WBC Auto (Bld) 2.9 % Normal 0-5 [facility] Work Phone: Erythrocyte distribution width Auto Ratio (RBC) 13.8 % Normal 11.6-14.6 [facility] Work Phone: Hematocrit Auto Volume Fraction (Bld) 37.0 % Normal 37-47 [facility] Work Phone: Hemoglobin mass conc (Bld) 12.6 g/dL Normal 12.0-16.0 [facility] Work Phone: Lymphocytes/100 WBC Auto (Bld) 24.4 % Normal 19-41 [facility] Work Phone: MCH Auto Entitic mass (RBC) 33.8 pg Abnormal 27.0-32.0 [facility] Work Phone: MCHC Auto mass conc (RBC) 34.1 g/dL Normal 32-36 [facility] Work Phone: MCV Auto Entitic volume (RBC) 99.2 fL Abnormal 81-99 [facility] Work Phone: Monocytes/100 WBC Auto (Bld) 10.7 % Abnormal 0-10 [facility] Work Phone: Neutrophils Auto #/vol (Bld) 3.4 3/uL Normal 2.0-7.7 [facility] Work Phone: Neutrophils/100 WBC Auto (Bld) 61.6 % Normal 47-70 [facility] Work Phone: Platelet mean volume Auto Entitic volume (Bld) 6.8 fL Normal 6.5-12.0 [facility] Work Phone: Platelets Auto #/vol (Bld) 224 10*3/uL Normal 150-450 [facility] Work Phone: RBC Auto #/vol (Bld) 3.73 {M/mm3} Abnormal 4.2-5.4 [facility]: WBC Auto #/vol (Bld) 5.6 10*3/uL Normal 4.4-11.0 Com prehensive [facility] Work Phone: COMP METABOLICOrdered By: Sy stem Safe Expert on 03-19-2010 Albumin mass conc 3.4 g/dL Normal 3.4-5.0 [facility] Work Phone: Albumin/Globulin mass ratio 1.0 {RATIO} Normal 0.9-2.4 [facility] Internal Medicine Work Phone: ALP enzyme act/vol 51 U/L Normal 50-136 Compre [facility] Internal Medicine Work Phone: ALT enzyme act/vol 22 U/L Normal 12-78 Compre [facility] Internal Medicine Work Phone: Anion gap 3 molar conc 5 mmol/L Normal 5-15 [facility] Work Phone: AST enzyme act/vol 22 U/L Normal 15-37 [facility] Work Phone: Bilirubin mass conc 0.40 mg/dL Normal 0.00-1.00 Compr ensive [facility] Medicine Work Phone: Calcium mass conc 9.1 mg/dL Normal 8.5-10.1 [facility] Work Phone: Chloride molar conc 99 mmol/L Normal 98-107 Compr ensive [facility] Medicine Work Phone: CO2 molar conc 29.0 mmol/L Normal 21.0-32.0 [facility] Work Phone: Creatinine mass conc 0.7 mg/dL Normal 0.6-1.0 [facility] Work Phone: GFR/1.73 sq M predicted among blacks MDRD vol rate/area (S/P/Bld) 107 mL/min/{1.73_m2} Normal [facility] Work Phone: GFR/1.73 sq M.predicted MDRD vol rate/area 88 mL/min/{1.73_m2} Normal Comprehen sive [facility] Medicine Work Phone: Globulin Calculated mass conc (S) 3.5 g/dL Normal 2.7-4.2 [facility] Work Phone: Glucose mass conc 58 mg/dL Abnormal 70-110 Compreh ensive [facility] Work Phone: Potassium molar conc 4.0 mmol/L Normal 3.5-5.1 Comp rehensive [facility] Work Phone: Protein mass conc 6.9 g/dL Normal 6.4-8.2 Compreh ensive [facility] Work Phone: Sodium molar conc 133 mmol/L Abnormal 136-145 Compreh ensive [facility] Work Phone: Urea nitrogen mass conc 13 mg/dL Normal 7-18 C [facility] Work Phone: Urea nitrogen/Creatinine mass ratio 18.6 {RATIO} Normal 10-20 [facility] Work Phone: CBCDOrdered By: System Manag er on 01-22-2010 Basophils/100 WBC Auto (Bld) 0.5 % Normal 0-1 [facility] Work Phone: Eosinophils/100 WBC Auto (Bld) 2.5 % Normal 0-5 [facility] Work Phone: Erythrocyte distribution width Auto Ratio (RBC) 14.4 % Normal 11.6-14.6 [facility] Work Phone: Hematocrit Auto Volume Fraction (Bld) 37.3 % Normal 37-47 [facility] Work Phone: Hemoglobin mass conc (Bld) 12.8 g/dL Normal 12.0-16.0 [facility] Work Phone: Lymphocytes/100 WBC Auto (Bld) 25.1 % Normal 19-41 [facility] Work Phone: MCH Auto Entitic mass (RBC) 34.1 pg Abnormal 27.0-32.0 [facility] Work Phone: MCHC Auto mass conc (RBC) 34.3 g/dL Normal 32-36 [facility] Work Phone: MCV Auto Entitic volume (RBC) 99.5 fL Abnormal 81-99 [facility] Work Phone: Monocytes/100 WBC Auto (Bld) 9.0 % Normal 0-10 [facility] Work Phone: Neutrophils Auto #/vol (Bld) 3.3 3/uL Normal 2.0-7.7 [facility] Work Phone: Neutrophils/100 WBC Auto (Bld) 62.9 % Normal 47-70 [facility] Work Phone: Platelet mean volume Auto Entitic volume (Bld) 6.4 fL Abnormal 6.5-12.0 [facility] Work Phone: Platelets Auto #/vol (Bld) 245 10*3/uL Normal 150-450 [facility] Work Phone: RBC Auto #/vol (Bld) 3.74 {M/mm3} Abnormal 4.2-5.4 Co [facility] Work Phone: WBC Auto #/vol (Bld) 5.3 10*3/uL Normal 4.4-11.0 [facility] prehensive Internal Medicine Work Phone: VIT D,25 [id number] By: Sy stem Safe Expert on 01-22-2010 VIT D,25 [id number] 36.2 ng/mL Normal 32.0-100.0 Comprehens [facility] Internal [facility] Work Phone: Comment on above: Recent studies consi vinita the lower limit of 32.0 ng/mL to ritika threshold for optimal health.Armando VLALE. J Nutr. 2005 Nov;135(2):317-22.Performed at: [address] [id number] Director: Aline Call MD LIVEROrdered By: Manoj ferro on 12-25-2009 Albumin mass conc 3.3 g/dL Abnormal 3.4-5.0 Compreh ensive Internal Medicine Work Phone: ALP enzyme act/vol 60 U/L Normal 50-136 Compre [facility] Internal Medicine Work Phone: ALT enzyme act/vol 22 U/L Normal 12-78 Compre [facility] Internal Medicine Work Phone: AST enzyme act/vol 23 U/L Normal 15-37 Compre [facility] Internal Medicine Work Phone: Bilirubin mass conc 0.40 mg/dL Normal 0.00-1.00 Compr ensive [facility] Medicine Work Phone: Bilirubin.direct mass conc 0.10 mg/dL Normal 0.00-0.30 [facility] Work Phone: Protein mass conc 6.9 g/dL Normal 6.4-8.2 Compreh ensive [facility] Medicine Work Phone: BILAT SCRN DIGITAL & CADOrde red By: Asset Management Analyst on 07-03-2009 BILAT SCRN DIGITAL & CAD See Note Normal [facility] Work Phone: Comment on above: Exam Number: [id number] MAMMOGRAM, BILATERAL SCREENING DIGITAL AND CAD HISTORYRoutine screening. Full field digital images were obtained in mediolateral oblique andcraniocaudal projections. CAD images were reviewed. A small metalmarker was placed on a mole which projects on the left. The current study is compared to the examinations of June, and May 14, 2006. There is moderately dense fibroglandular parenchyma present. There isno skin thickening or retraction, architectural distortion, or clusterof suspicious microcalcifications. There is no dominant mass orsignificant interval change seen. The density seen against the chestwall in the left craniocaudal view is compatible with visualization ofpectoral muscle. If there is no suspicious palpable abnormality,followup mammogram in 1 year is recommended. IMPRESSIONThere is no radiographic evidence of malignancy identified. FINAL ASSESSMENTBenign findings. BIRADS Category 2. A letter regarding these results has been sent to the patient. This interpretation was rendered by a radiologist certified under theMammography Quality Standards Act of 1992 (MQSA). The mammograms werealso examined with computer-aided detection software ([employer], [employer] Reported By: GAUTAM NUNEZ M.D. C-REACTIVE PROTOrdered By: Gumaro Monkey Analyticsst. francis [facility] Safe Expert on 03-25-2008 CRP mass conc 22.28 mg/L Abnormal 0.0-6.0 Comprehensi Internal Medicine Work Phone: Comment on above: Test performed using the Dimension C-Reactive ProteinExtended Range assay method. This assay meets the AHA/CDC 2003 recommendations fordetermining patients at high risk for cardiovasculardisease. Reference: High risk CRP >3.0 mg/L CBCD,SMEAR DIFFOrdered By: Gumaro wallis Safe Expert on 03-25-2008 Band form neutrophils/100 WBC Manual cnt (Bld) 2 % Normal 0-5 [facility] Internal Medicine Work Phone: Eosinophils/100 WBC Auto (Bld) 4 % Normal 0-5 [facility] Internal Medicine Work Phone: Erythrocyte distribution width Auto Ratio (RBC) 13.9 % Normal 11.6-14.6 [facility] Internal Medicine Work Phone: Hematocrit Auto Volume Fraction (Bld) 37.3 % Normal 37-47 [facility] Internal Medicine Work Phone: Hemoglobin mass conc (Bld) 12.4 g/dL Normal 12.0-16.0 [facility] Internal Medicine Work Phone: Lymphocytes/100 WBC Auto (Bld) 26 % Normal 19-41 [facility] Internal Medicine Work Phone: MCH Auto Entitic mass (RBC) 32.0 pg Normal 27.0-32.0 [facility] Internal Medicine Work Phone: MCHC Auto mass conc (RBC) 33.4 g/dL Normal 32-36 [facility] Internal Medicine Work Phone: MCV Auto Entitic volume (RBC) 95.7 fL Normal 81-99 [facility] Internal Medicine Work Phone: Monocytes/100 WBC Auto (Bld) 2 % Normal 0-10 [facility] Internal Medicine Work Phone: Platelets Auto #/vol (Bld) 435 10*3/uL Normal 150-450 [facility] Internal Medicine Work Phone: RBC Auto #/vol (Bld) 3.89 {M/mm3} Abnormal 4.2-5.4 Co [email or web address] Internal Medicine Work Phone: WBC Auto #/vol (Bld) 11.1 10*3/uL Abnormal 4.4-11.0 Co [email or web address] Internal Medicine Work Phone: CBCD,SMEAR DIFF 100 1 Normal [facility] Work Phone: CBCD,SMEAR DIFF 66 % Normal 47-70 [facility] Work Phone: COMP METABOLICOrdered By: Manuel stem Safe Expert on 03-25-2008 Albumin mass conc 3.3 g/dL Abnormal 3.4-5.0 Compreh [facility] Internal Medicine Work Phone: Albumin/Globulin mass ratio 0.7 {RATIO} Abnormal 0.9-2.4 [facility] Internal Medicine Work Phone: ALP enzyme act/vol 69 U/L Normal 50-136 [facility] Internal Medicine Work Phone: ALT enzyme act/vol 27 U/L Abnormal 30-65 [facility] Internal Medicine Work Phone: Anion gap 3 molar conc 7 mmol/L Normal 5-15 Co [email or web address] Internal Medicine Work Phone: AST enzyme act/vol 14 U/L Abnormal 15-37 [facility] Internal Medicine Work Phone: Bilirubin mass conc 0.40 mg/dL Normal 0.00-1.00 [facility] Internal Medicine Work Phone: Calcium mass conc 9.2 mg/dL Normal 8.5-10.1 Compreh [facility] Internal Medicine Work Phone: Chloride molar conc 96 mmol/L Abnormal 98-107 [facility] Internal Medicine Work Phone: CO2 molar conc 29.4 mmol/L Normal 21.0-32.0 [facility] Work Phone: Creatinine mass conc 0.9 mg/dL Normal 0.6-1.0 Comp [facility] Internal Medicine Work Phone: Globulin Calculated mass conc (S) 4.5 g/dL Abnormal 2.7-4.2 [facility] Work Phone: Glucose mass conc 82 mg/dL Normal 70-110 Compreh ensive Internal Medicine Work Phone: Potassium molar conc 4.0 mmol/L Normal 3.5-5.1 Comp rehensive Internal Medicine Work Phone: Protein mass conc 7.8 g/dL Normal 6.4-8.2 Compreh ensive Internal Medicine Work Phone: Sodium molar conc 132 mmol/L Abnormal 136-145 Compreh ensive Internal Medicine Work Phone: Urea nitrogen mass conc 10 mg/dL Normal 7-18 C [facility]rehens[facility] Work Phone: Urea nitrogen/Creatinine mass ratio 11.1 {RATIO} Normal 10-20 [facility] Work Phone: ESROrdered By: System Manage r on 03-25-2008 ESR Velocity (Bld) 62 mm/h Abnormal 0-30 Compre hensive Internal Medicine Work Phone: LIPIDOrdered By: System Rut kasie on 03-25-2008 Cholesterol in HDL mass conc 46 mg/dL Normal [facility] Work Phone: Comment on above: Reference Range HDL <40 mg/dL Low HDL Cholesterol HDL >or= 60 mg/dL High HDL Cholesterol Cholesterol in LDL mass conc 69 mg/dL Normal 0-130 [facility] Work Phone: Cholesterol in VLDL mass conc 20 mg/dL Normal 5-40 [facility] Work Phone: Cholesterol mass conc 135 mg/dL Normal Com prehensive [facility] Medicine Work Phone: Comment on above: <200 mg/dL Desirable 200-240 mg/dL Borderline >240 mg/dL High Risk Triglyceride mass conc 100 mg/dL Normal Co mprehensive [facility] Work Phone: Comment on above: Serum Triglycerides Reference Interval Normal <150 mg/dL Borderline high 150 - 199 mg/dL High 200 - 499 mg/dL Very High > or = 500 mg/dL MICROALBOrdered By: System Credit Sesameger on 03-25-2008 Creatinine mass conc 51.2 {mg/g_CRE} Abnormal [facility] Work Phone: MICROALB 57.7 mg/L Normal [facility] Work Phone: ROUTINE UAOrdered By: Asset Management Analyst on 03-25-2008 ROUTINE UA 0.2 EU/dl Normal 0.2 - 1.0 [facility] Work Phone: ROUTINE UA SeeNote Normal [facility] Work Phone: Comment on above: Result: NEGATIVE Result: NORM C+C Result: ADEQUATE ROUTINE UA 7.0 1 Normal 5.0-8.0 [facility] Work Phone: ROUTINE UA YELLOW Normal [facility] Work Phone: ROUTINE UA CLEAR Normal [facility] Work Phone: ROUTINE UA <=1.005 Normal 1.002-1.030 [facility] Work Phone: ROUTINE UA TRACE Abnormal [facility] Work Phone: TSHOrdered By: System Manage r on 03-25-2008 Thyrotropin Qn 1.83 {uIU/mL} Normal 0.34-4.82 Compreh ensive Internal Medicine Work Phone: UR CREATOrdered By: System Credit Sesameger on 03-25-2008 UR CREAT 112.6 mg/dL Normal [facility] Work Phone: C-REACTIVE PROTOrdered By: Gumaro ystem Safe Expert on 05-25-2007 CRP mass conc 8.99 mg/L Abnormal 0.0-6.0 Comprehensi ve Internal Medicine Work Phone: Comment on above: Test performed using the Dimension C-Reactive ProteinExtended Range assay method. This assay meets the AHA/CDC 2003 recommendations fordetermining patients at high risk for cardiovasculardisease. Reference: High risk CRP >3.0 mg/L CBCDOrdered By: System Manag er on 05-25-2007 Band form neutrophils/100 WBC Manual cnt (Bld) 2 % Normal 0-5 [facility] Work Phone: Eosinophils/100 WBC Auto (Bld) 1 % Normal 0-5 [facility] Work Phone: Erythrocyte distribution width Auto Ratio (RBC) 13.7 % Normal 11.6-14.6 [facility] Internal Medicine Work Phone: Hematocrit Auto Volume Fraction (Bld) 38.5 % Normal 37-47 [facility] Work Phone: Hemoglobin mass conc (Bld) 13.1 g/dL Normal 12.0-16.0 [facility] Internal Medicine Work Phone: Lymphocytes/100 WBC Auto (Bld) 13 % Abnormal 19-41 [facility] Work Phone: MCH Auto Entitic mass (RBC) 32.0 pg Normal 27.0-32.0 [facility] Internal Medicine Work Phone: MCHC Auto mass conc (RBC) 34.0 g/dL Normal 32-36 [facility] Internal Medicine Work Phone: MCV Auto Entitic volume (RBC) 94.1 fL Normal 81-99 [facility] Internal Medicine Work Phone: Monocytes/100 WBC Auto (Bld) 2 % Normal 0-10 [facility] Internal Medicine Work Phone: Platelet mean volume Auto Entitic volume (Bld) 7.6 fL Normal 6.5-12.0 [facility] Internal [facility] Work Phone: Platelets Auto #/vol (Bld) 359 10*3/uL Normal 150-450 [facility] Internal Medicine Work Phone: RBC Auto #/vol (Bld) 4.09 {M/mm3} Abnormal 4.2-5.4 Co [email or web address] Internal Medicine Work Phone: WBC Auto #/vol (Bld) 14.0 10*3/uL Abnormal 4.4-11.0 Co [email or web address] Internal Medicine Work Phone: CBCD SeeNote Normal [facility] Internal Medicine Work Phone: Comment on above: Result: ADEQUATE Result: NORM C&C CBCD 82 % Abnormal 47-70 [facility] Internal Medicine Work Phone: CBCD 0 % Normal 0-5 [facility] Work Phone: CBCD 100 1 Normal [facility] Work Phone: COMP METABOLICOrdered By: Manuel stem Safe Expert on 05-25-2007 Albumin mass conc 3.3 g/dL Abnormal 3.4-5.0 Compreh ensive Internal Medicine Work Phone: Albumin/Globulin mass ratio 0.8 {RATIO} Abnormal 0.9-2.4 [facility] Internal Medicine Work Phone: ALP enzyme act/vol 68 U/L Normal 50-136 Compre [facility] Internal Medicine Work Phone: ALT enzyme act/vol 32 [iU]/L Normal 30-65 [facility] Work Phone: Anion gap 3 molar conc 7 mmol/L Normal 5-15 [facility] Work Phone: AST enzyme act/vol 20 U/L Normal 15-37 Compre [facility] Internal Medicine Work Phone: Bilirubin mass conc 0.34 mg/dL Normal 0.00-1.00 Compr ensive Internal Medicine Work Phone: Calcium mass conc 9.0 mg/dL Normal 8.5-10.1 Compreh ensive Internal Medicine Work Phone: Chloride molar conc 99 mmol/L Normal 98-107 Compr [facility] Internal Medicine Work Phone: CO2 molar conc 28.7 mmol/L Normal 22.0-29.0 Comprehen [facility] Internal Medicine Work Phone: Creatinine mass conc 1.1 mg/dL Abnormal 0.6-1.0 Comp [facility] Internal Medicine Work Phone: Globulin Calculated mass conc (S) 4.2 g/dL Abnormal 2.3-3.5 [facility] Internal Medicine Work Phone: Glucose mass conc 111 mg/dL Abnormal 70-110 Compre[facility] Internal Medicine Work Phone: Comment on above: Fasting Glucose resu lt from 110 to <126 mg/dL suggests IMPAIRED HOMEOSTASIS per A.D.A. criteria. Potassium molar conc 4.0 mmol/L Normal 3.5-5.1 Comp rehensive Internal Medicine Work Phone: Protein mass conc 7.5 g/dL Normal 6.4-8.2 Compreh ensive Internal Medicine Work Phone: Sodium molar conc 135 mmol/L Abnormal 136-145 Compreh ensive Internal Medicine Work Phone: Urea nitrogen mass conc 16 mg/dL Normal 7-18 C omprehensive Internal Medicine Work Phone: Urea nitrogen/Creatinine mass ratio 14.5 {RATIO} Normal 10-20 [facility] Work Phone: ESROrdered By: System Manage r on 05-25-2007 ESR Velocity (Bld) 31 mm/h Abnormal 0-30 Compre hensive Internal Medicine Work Phone: C-REACTIVE PROTOrdered By: S ystem Safe Expert on 04-08-2007 CRP mass conc 1.44 mg/L Normal 0.0-6.0 Comprehensi ve Internal Medicine Work Phone: Comment on above: Test performed using the Dimension C-Reactive ProteinExtended Range assay method. This assay meets the AHA/CDC 2003 recommendations fordetermining patients at high risk for cardiovasculardisease. Reference: High risk CRP >3.0 mg/L CBCDOrdered By: System Manag er on 04-08-2007 Basophils/100 WBC Auto (Bld) 0.4 % Normal 0-1 [facility] Work Phone: Eosinophils/100 WBC Auto (Bld) 3.2 % Normal 0-5 [facility] Work Phone: Erythrocyte distribution width Auto Ratio (RBC) 14.4 % Normal 11.6-14.6 [facility] Work Phone: Hematocrit Auto Volume Fraction (Bld) 35.4 % Abnormal 37-47 [facility] Work Phone: Hemoglobin mass conc (Bld) 11.8 g/dL Abnormal 12.0-16.0 [facility] Work Phone: Lymphocytes/100 WBC Auto (Bld) 24.6 % Normal 19-41 [facility] Work Phone: MCH Auto Entitic mass (RBC) 32.3 pg Abnormal 27.0-32.0 [facility] Work Phone: MCHC Auto mass conc (RBC) 33.4 g/dL Normal 32-36 [facility] Work Phone: MCV Auto Entitic volume (RBC) 96.6 fL Normal 81-99 [facility] Internal Medicine Work Phone: Monocytes/100 WBC Auto (Bld) 7.3 % Normal 0-10 [facility] Internal Medicine Work Phone: Neutrophils/100 WBC Auto (Bld) 64.5 % Normal 47-70 [facility] Internal Medicine Work Phone: Platelet mean volume Auto Entitic volume (Bld) 7.0 fL Normal 6.5-12.0 [facility] Internal Medicine Work Phone: Platelets Auto #/vol (Bld) 278 10*3/uL Normal 150-450 [facility] Internal Medicine Work Phone: RBC Auto #/vol (Bld) 3.67 {M/mm3} Abnormal 4.2-5.4 [facility] Work Phone: WBC Auto #/vol (Bld) 8.1 10*3/uL Normal 4.4-11.0 Com prehensive Internal Medicine Work Phone: COMP METABOLICOrdered By: Sy stem Safe Expert on 04-08-2007 Albumin mass conc 3.3 g/dL Abnormal 3.4-5.0 Compreh ensive Internal Medicine Work Phone: Albumin/Globulin mass ratio 0.9 {RATIO} Normal 0.9-2.4 [facility] Internal Medicine Work Phone: ALP enzyme act/vol 60 U/L Normal 50-136 [facility] Internal Medicine Work Phone: ALT enzyme act/vol 30 [iU]/L Normal 30-65 [facility] Internal Medicine Work Phone: Anion gap 3 molar conc 6 mmol/L Normal 5-15 [facility] Work Phone: AST enzyme act/vol 20 U/L Normal 15-37 [facility] Work Phone: Bilirubin mass conc 0.42 mg/dL Normal 0.00-1.00 Compr ensive Internal Medicine Work Phone: Calcium mass conc 8.3 mg/dL Abnormal 8.5-10.1 Compreh ensive Internal Medicine Work Phone: Chloride molar conc 99 mmol/L Normal 98-107 Compr ensive Internal Medicine Work Phone: CO2 molar conc 25.6 mmol/L Normal 22.0-29.0 [facility] Work Phone: Creatinine mass conc 0.9 mg/dL Normal 0.6-1.0 [facility] Work Phone: Globulin Calculated mass conc (S) 3.5 g/dL Normal 2.3-3.5 [facility] Internal Medicine Work Phone: Glucose mass conc 98 mg/dL Normal 70-110 Compreh ensive Internal Medicine Work Phone: Potassium molar conc 4.1 mmol/L Normal 3.5-5.1 [facility] Work Phone: Protein mass conc 6.8 g/dL Normal 6.4-8.2 Compreh ensive Internal Medicine Work Phone: Sodium molar conc 131 mmol/L Abnormal 136-145 Compreh ensive Internal Medicine Work Phone: Urea nitrogen mass conc 11 mg/dL Normal 7-18 [facility] Work Phone: Urea nitrogen/Creatinine mass ratio 12.2 {RATIO} Normal 10-20 [facility] Internal Medicine Work Phone: ESROrdered By: System Manage r on 04-08-2007 ESR Velocity (Bld) 22 mm/h Normal 0-30 [facility] Internal Medicine Work Phone: [id number] By: S ystem Safe Expert on 02-06-2007 Protein mass conc Comment Normal Compreh ensive Internal Medicine Work Phone: Comment on above: Protein electrophore sis scan will follow via mail orcourier.Performed At: [facility], [place] [id number] Protein electrophore sis scan will follow via mail orcourier. Protein mass conc 1.9 mg/dL Normal 0.0-15.0 Compreh ensive Internal Medicine Work Phone: [id number] 13.3 % Normal Comprehen sive Internal Medicine Work Phone: [id number] SeeNote Normal Comprehen sive Internal Medicine Work Phone: Comment on above: Result: Not Observed [id number] 6.9 % Normal Comprehen sive Internal Medicine Work Phone: [id number] 12.4 % Normal Comprehen sive Internal Medicine Work Phone: [id number] 34.1 % Normal Comprehen sive Internal Medicine Work Phone: [id number] 33.3 % Normal Comprehen sive Internal Medicine Work Phone: SPE [id number] By: Asset Management Analyst on 02-06-2007 Albumin mass conc 3.6 g/dL Normal 3.2-5.6 Compreh ensive Internal Medicine Work Phone: Albumin/Globulin mass ratio 1.1 {ratio} Normal 0.7-2.0 [facility] Work Phone: Globulin Calculated mass conc (S) 3.4 g/dL Normal 2.0-4.5 [facility] Work Phone: Protein mass conc 7.0 g/dL Normal 6.0-8.5 Compreh ensive Internal Medicine Work Phone: SPE [id number] 0.2 g/dL Normal 0.1-0.4 [facility] Work Phone: SPE [id number] Comment Normal [facility] Work Phone: Comment on above: The SPE pattern appe ars essentially unremarkable. Evidenceof monoclonal protein is not apparent. SPE [id number] 1.3 g/dL Normal 0.5-1.6 [facility] Work Phone: SPE [id number] 1.0 g/dL Normal 0.6-1.3 [facility] Work Phone: SPE [id number] 0.9 g/dL Normal 0.4-1.2 [facility] Work Phone: C-REACTIVE PROTOrdered By: Gumaro kingtem Safe Expert on 02-05-2007 CRP mass conc 6.26 mg/L Abnormal 0.0-6.0 Comprehensi Internal Medicine Work Phone: Comment on above: Test performed using the Dimension C-Reactive ProteinExtended Range assay method. This assay meets the AHA/CDC 2003 recommendations fordetermining patients at high risk for cardiovasculardisease. Reference: High risk CRP >3.0 mg/L CBCDOrdered By: Manoj Brown er on 02-05-2007 Basophils/100 WBC Auto (Bld) 0.3 % Normal 0-1 [facility] Internal Medicine Work Phone: Eosinophils/100 WBC Auto (Bld) 2.7 % Normal 0-5 [facility] Work Phone: Erythrocyte distribution width Auto Ratio (RBC) 14.3 % Normal 11.6-14.6 [facility] Internal Medicine Work Phone: Hematocrit Auto Volume Fraction (Bld) 38.4 % Normal 37-47 [facility] Internal Medicine Work Phone: Hemoglobin mass conc (Bld) 13.1 g/dL Normal 12.0-16.0 [facility] Internal Medicine Work Phone: Lymphocytes/100 WBC Auto (Bld) 23.7 % Normal 19-41 [facility] Work Phone: MCH Auto Entitic mass (RBC) 32.8 pg Abnormal 27.0-32.0 [facility] Internal Medicine Work Phone: MCHC Auto mass conc (RBC) 34.0 g/dL Normal 32-36 [facility] Work Phone: MCV Auto Entitic volume (RBC) 96.5 fL Normal 81-99 [facility] Internal Medicine Work Phone: Monocytes/100 WBC Auto (Bld) 6.9 % Normal 0-10 [facility] Work Phone: Neutrophils/100 WBC Auto (Bld) 66.4 % Normal 47-70 [facility] Internal Medicine Work Phone: Platelet mean volume Auto Entitic volume (Bld) 7.2 fL Normal 6.5-12.0 [facility] Internal Medicine Work Phone: Platelets Auto #/vol (Bld) 403 10*3/uL Normal 150-450 [facility] Internal Medicine Work Phone: RBC Auto #/vol (Bld) 3.98 {M/mm3} Abnormal 4.2-5.4 Co [facility] Work Phone: WBC Auto #/vol (Bld) 10.5 10*3/uL Normal 4.4-11.0 Co [facility] Medicine Work Phone: COMP METABOLICOrdered By: Sy stem Safe Expert on 02-05-2007 Albumin mass conc 3.5 g/dL Normal 3.4-5.0 Compreh [facility] Internal Medicine Work Phone: Albumin/Globulin mass ratio 0.8 {RATIO} Abnormal 0.9-2.4 [facility] Internal Medicine Work Phone: ALP enzyme act/vol 85 U/L Normal 50-136 [facility] Internal Medicine Work Phone: ALT enzyme act/vol 28 [iU]/L Abnormal 30-65 [facility] Internal Medicine Work Phone: Anion gap 3 molar conc 7 mmol/L Normal 5-15 Co [email or web address] Internal Medicine Work Phone: AST enzyme act/vol 16 U/L Normal 15-37 [facility] Internal Medicine Work Phone: Bilirubin mass conc 0.27 mg/dL Normal 0.00-1.00 [facility] Internal Medicine Work Phone: Calcium mass conc 9.3 mg/dL Normal 8.5-10.1 Compreh [facility] Internal Medicine Work Phone: Chloride molar conc 97 mmol/L Abnormal 98-107 [facility] Internal Medicine Work Phone: CO2 molar conc 29.8 mmol/L Abnormal 22.0-29.0 [facility]: Creatinine mass conc 0.8 mg/dL Normal 0.6-1.0 Comp rehensive Internal Medicine Work Phone: Globulin Calculated mass conc (S) 4.3 g/dL Abnormal 2.3-3.5 [facility] Work Phone: Glucose mass conc 97 mg/dL Normal 70-110 Compreh ensive Internal Medicine Work Phone: Potassium molar conc 4.3 mmol/L Normal 3.5-5.1 Comp rehensive Internal Medicine Work Phone: Protein mass conc 7.8 g/dL Normal 6.4-8.2 Compreh ensive Internal Medicine Work Phone: Sodium molar conc 134 mmol/L Abnormal 136-145 Compreh ensive Internal Medicine Work Phone: Urea nitrogen mass conc 11 mg/dL Normal 7-18 [facility] Work Phone: Urea nitrogen/Creatinine mass ratio 13.8 {RATIO} Normal 10-20 [facility] Work Phone: ESROrdered By: System Manage r on 02-05-2007 ESR Velocity (Bld) 35 mm/h Abnormal 0-30 Compre hensive Internal Medicine Work Phone: VIT [id number] By: Sy stem Safe Expert on 02-05-2007 VIT D,[id number] 97.4 ng/mL Normal 32.0-100.0 Comprehens dominic Internal Medicine Work Phone: Comment on above: Recent studies consi vinita the lower limit of 32.0 ng/mL to ritika threshold for optimal health.Armando VALLE. J Nutr. 2004;135(2):317-22.Performed At: [facility] [id number] C-REACTIVE PROTOrdered By: Gumaro ystem Safe Expert on 12-25-2006 CRP mass conc mg/L Normal 0.0-6.0 Comprehensi ve Internal Medicine Work Phone: Comment on above: Test performed using the Dimension C-Reactive ProteinExtended Range assay method. This assay meets the AHA/CDC 2003 recommendations fordetermining patients at high risk for cardiovasculardisease. Reference: High risk CRP >3.0 mg/L CBCDOrdered By: System Manag er on 12-25-2006 Basophils/100 WBC Auto (Bld) 0.4 % Normal 0-1 [facility] Work Phone: Eosinophils/100 WBC Auto (Bld) 2.8 % Normal 0-5 [facility] Work Phone: Erythrocyte distribution width Auto Ratio (RBC) 13.8 % Normal 11.6-14.6 [facility] Work Phone: Hematocrit Auto Volume Fraction (Bld) 37.3 % Normal 37-47 [facility] Work Phone: Hemoglobin mass conc (Bld) 12.7 g/dL Normal 12.0-16.0 [facility] Work Phone: Lymphocytes/100 WBC Auto (Bld) 28.9 % Normal 19-41 [facility] Work Phone: MCH Auto Entitic mass (RBC) 33.0 pg Abnormal 27.0-32.0 [facility] Work Phone: MCHC Auto mass conc (RBC) 34.1 g/dL Normal 32-36 [facility] Work Phone: MCV Auto Entitic volume (RBC) 96.9 fL Normal 81-99 [facility] Internal Medicine Work Phone: Monocytes/100 WBC Auto (Bld) 4.8 % Normal 0-10 [facility] Work Phone: Neutrophils/100 WBC Auto (Bld) 63.1 % Normal 47-70 [facility] Internal Medicine Work Phone: Platelet mean volume Auto Entitic volume (Bld) 7.1 fL Normal 6.5-12.0 [facility] Internal Medicine Work Phone: Platelets Auto #/vol (Bld) 300 10*3/uL Normal 150-450 [facility] Internal Medicine Work Phone: RBC Auto #/vol (Bld) 3.85 {M/mm3} Abnormal 4.2-5.4 [facility] Work Phone: WBC Auto #/vol (Bld) 10.5 10*3/uL Normal 4.4-11.0 Co [facility] [[email or web address]] Internal Medicine Work Phone: COMP METABOLICOrdered By: Manuel stem Safe Expert on 12-25-2006 Albumin mass conc 3.2 g/dL Abnormal 3.4-5.0 Compreh [facility] Internal Medicine Work Phone: Albumin/Globulin mass ratio 0.9 {RATIO} Normal 0.9-2.4 [facility] Internal Medicine Work Phone: ALP enzyme act/vol 65 U/L Normal 50-136 [facility] Internal Medicine Work Phone: ALT enzyme act/vol 29 [iU]/L Abnormal 30-65 [facility] Internal Medicine Work Phone: Anion gap 3 molar conc 6 mmol/L Normal 5-15 Co [email or web address] Internal Medicine Work Phone: AST enzyme act/vol 17 U/L Normal 15-37 [facility] Internal Medicine Work Phone: Bilirubin mass conc 0.30 mg/dL Normal 0.00-1.00 [facility] Internal Medicine Work Phone: Calcium mass conc 8.9 mg/dL Normal 8.5-10.1 Compreh [facility] Internal Medicine Work Phone: Chloride molar conc 99 mmol/L Normal 98-107 [facility] Internal Medicine Work Phone: CO2 molar conc 28.9 mmol/L Normal 22.0-29.0 [facility] Work Phone: Creatinine mass conc 0.9 mg/dL Normal 0.6-1.0 Comp [facility] Internal Medicine Work Phone: Globulin Calculated mass conc (S) 3.6 g/dL Abnormal 2.3-3.5 [facility] Internal Medicine Work Phone: Glucose mass conc 120 mg/dL Abnormal 70-110 Compreh [facility] Internal Medicine Work Phone: Comment on above: Fasting Glucose resu lt from 110 to <126 mg/dL suggests IMPAIRED HOMEOSTASIS per A.D.A. criteria. Potassium molar conc 4.1 mmol/L Normal 3.5-5.1 Comp rehensive Internal Medicine Work Phone: Protein mass conc 6.8 g/dL Normal 6.4-8.2 Compreh ensive Internal Medicine Work Phone: Sodium molar conc 134 mmol/L Abnormal 136-145 Compreh ensive Internal Medicine Work Phone: Urea nitrogen mass conc 12 mg/dL Normal 7-18 [facility] Work Phone: Urea nitrogen/Creatinine mass ratio 13.3 {RATIO} Normal 10-20 [facility] Work Phone: ESROrdered By: System Manage r on 12-25-2006 ESR Velocity (Bld) 12 mm/h Normal 0-30 Compre hensive Internal Medicine Work Phone: C-REACTIVE PROTOrdered By: S ystem Safe Expert on 09-30-2006 CRP mass conc 1.02 mg/L Normal 0.0-6.0 Comprehensi Internal Medicine Work Phone: Comment on above: Test performed using the Dimension C-Reactive ProteinExtended Range assay method. This assay meets the AHA/CDC 2003 recommendations fordetermining patients at high risk for cardiovasculardisease. Reference: High risk CRP >3.0 mg/L CBCDOrdered By: System Manag er on 09-30-2006 Basophils/100 WBC Auto (Bld) 0.5 % Normal 0-1 [facility] Work Phone: Eosinophils/100 WBC Auto (Bld) 4.1 % Normal 0-5 [facility] Work Phone: Erythrocyte distribution width Auto Ratio (RBC) 13.6 % Normal 11.6-14.6 [facility] Work Phone: Hematocrit Auto Volume Fraction (Bld) 38.0 % Normal 37-47 [facility] Work Phone: Hemoglobin mass conc (Bld) 13.2 g/dL Normal 12.0-16.0 [facility] Work Phone: Lymphocytes/100 WBC Auto (Bld) 39.9 % Normal 19-41 [facility] Work Phone: MCH Auto Entitic mass (RBC) 33.4 pg Abnormal 27.0-32.0 [facility] Work Phone: MCHC Auto mass conc (RBC) 34.7 g/dL Normal 32-36 [facility] Work Phone: MCV Auto Entitic volume (RBC) 96.3 fL Normal 81-99 [facility] Work Phone: Monocytes/100 WBC Auto (Bld) 11.3 % Abnormal 0-10 [facility] Work Phone: Neutrophils/100 WBC Auto (Bld) 44.2 % Abnormal 47-70 [facility] Work Phone: Platelet mean volume Auto Entitic volume (Bld) 7.1 fL Normal 6.5-12.0 [facility] Internal Medicine Work Phone: Platelets Auto #/vol (Bld) 292 10*3/uL Normal 150-450 [facility] Internal Medicine Work Phone: RBC Auto #/vol (Bld) 3.94 {M/mm3} Abnormal 4.2-5.4 [facility] Work Phone: WBC Auto #/vol (Bld) 6.4 10*3/uL Normal 4.4-11.0 Com prehensive Internal Medicine Work Phone: COMP METABOLICOrdered By: Sy stem Safe Expert on 09-30-2006 Albumin mass conc 3.6 g/dL Normal 3.4-5.0 [facility] Work Phone: Albumin/Globulin mass ratio 1.0 {RATIO} Normal 0.9-2.4 [facility] Work Phone: ALP enzyme act/vol 52 U/L Normal 50-136 [facility]pre [facility] Work Phone: ALT enzyme act/vol 38 [iU]/L Normal 30-65 Compre [facility] Internal Medicine Work Phone: Anion gap 3 molar conc 3 mmol/L Abnormal 5-15 [facility] Work Phone: AST enzyme act/vol 20 U/L Normal 15-37 Compre [facility] Internal Medicine Work Phone: Bilirubin mass conc 0.49 mg/dL Normal 0.00-1.00 Compr ensive Internal Medicine Work Phone: Calcium mass conc 9.0 mg/dL Normal 8.5-10.1 Compreh ensive Internal Medicine Work Phone: Chloride molar conc 97 mmol/L Abnormal 98-107 Compr ensive Internal Medicine Work Phone: CO2 molar conc 33.6 mmol/L Abnormal 22.0-29.0 [facility] Work Phone: Creatinine mass conc 0.8 mg/dL Normal 0.6-1.0 [facility] Work Phone: Globulin Calculated mass conc (S) 3.6 g/dL Abnormal 2.3-3.5 [facility] Internal Medicine Work Phone: Glucose mass conc 85 mg/dL Normal 70-110 Compreh ensive Internal Medicine Work Phone: Potassium molar conc 4.3 mmol/L Normal 3.5-5.1 [facility] Work Phone: Protein mass conc 7.2 g/dL Normal 6.4-8.2 [facility] Work Phone: Sodium molar conc 134 mmol/L Abnormal 136-145 [facility] Work Phone: Urea nitrogen mass conc 16 mg/dL Normal 7-18 [facility] Work Phone: Urea nitrogen/Creatinine mass ratio 20.0 {RATIO} Normal 10-20 [facility] Internal Medicine Work Phone: ESROrdered By: System Manage r on 09-30-2006 ESR Velocity (Bld) 15 mm/h Normal 0-30 [facility] Internal Medicine Work Phone: VITD 1,25 [id number] By: S ystem Safe Expert on 09-30-2006 Calcidiol mass conc 13.4 pg/mL Abnormal 15.9-55.6 Compr [facility] Internal Medicine Work Phone: Comment on above: Performed At: [address] [id number] LYTESOrdered By: System Rut kasie on 08-28-2006 Anion gap 3 molar conc 6 mmol/L Normal 5-15 Co mprehensive Internal Medicine Work Phone: Chloride molar conc 101 mmol/L Normal 98-107 Compr ehensive Internal Medicine Work Phone: CO2 molar conc 29.1 mmol/L Abnormal 22.0-29.0 Comprehen sive Internal Medicine Work Phone: Potassium molar conc 4.0 mmol/L Normal 3.5-5.1 Comp rehensive Internal Medicine Work Phone: Sodium molar conc 136 mmol/L Normal 136-145 Compreh ensive Internal Medicine Work Phone: C-REACTIVE PROTOrdered By: Gumaro chase Safe Expert on 08-19-2006 CRP mass conc mg/L Normal 0.0-6.0 Comprehensi ve Internal Medicine Work Phone: Comment on above: Test performed using the Dimension C-Reactive ProteinExtended Range assay method. This assay meets the AHA/CDC 2003 recommendations fordetermining patients at high risk for cardiovasculardisease. Reference: High risk CRP >3.0 mg/L CBCDOrdered By: System Manag er on 08-19-2006 Basophils/100 WBC Auto (Bld) 0.6 % Normal 0-1 [facility] Work Phone: Eosinophils/100 WBC Auto (Bld) 3.0 % Normal 0-5 [facility] Work Phone: Erythrocyte distribution width Auto Ratio (RBC) 13.5 % Normal 11.6-14.6 [facility] Work Phone: Hematocrit Auto Volume Fraction (Bld) 38.0 % Normal 37-47 [facility] Work Phone: Hemoglobin mass conc (Bld) 13.0 g/dL Normal 12.0-16.0 [facility] Work Phone: Lymphocytes/100 WBC Auto (Bld) 37.4 % Normal 19-41 [facility] Work Phone: MCH Auto Entitic mass (RBC) 32.9 pg Abnormal 27.0-32.0 [facility] Work Phone: MCHC Auto mass conc (RBC) 34.2 g/dL Normal 32-36 [facility] Work Phone: MCV Auto Entitic volume (RBC) 96.3 fL Normal 81-99 [facility] Work Phone: Monocytes/100 WBC Auto (Bld) 6.9 % Normal 0-10 [facility] Internal Medicine Work Phone: Neutrophils/100 WBC Auto (Bld) 52.1 % Normal 47-70 [facility] Internal Medicine Work Phone: Platelet mean volume Auto Entitic volume (Bld) 7.2 fL Normal 6.5-12.0 [facility] Internal Medicine Work Phone: Platelets Auto #/vol (Bld) 296 10*3/uL Normal 150-450 [facility] Internal Medicine Work Phone: RBC Auto #/vol (Bld) 3.94 {M/mm3} Abnormal 4.2-5.4 [facility] Work Phone: WBC Auto #/vol (Bld) 7.6 10*3/uL Normal 4.4-11.0 Com prehensive Internal Medicine Work Phone: COMP METABOLICOrdered By: Sy stem Safe Expert on 08-19-2006 Albumin mass conc 3.6 g/dL Normal 3.4-5.0 Compreh ensive Internal Medicine Work Phone: Albumin/Globulin mass ratio 1.0 {RATIO} Normal 0.9-2.4 [facility] Work Phone: ALP enzyme act/vol 58 U/L Normal 50-136 Compre [facility] Internal Medicine Work Phone: ALT enzyme act/vol 29 [iU]/L Abnormal 30-65 Compre [facility] Internal Medicine Work Phone: Anion gap 3 molar conc 4 mmol/L Abnormal 5-15 [facility] Work Phone: AST enzyme act/vol 17 U/L Normal 15-37 [facility]pre [facility] Work Phone: Bilirubin mass conc 0.40 mg/dL Normal 0.00-1.00 Compr ensive Internal Medicine Work Phone: Calcium mass conc 9.3 mg/dL Normal 8.5-10.1 Compreh ensive Internal Medicine Work Phone: Chloride molar conc 102 mmol/L Normal 98-107 Compr ensive Internal Medicine Work Phone: CO2 molar conc 30.1 mmol/L Abnormal 22.0-29.0 [facility] Work Phone: Creatinine mass conc 0.9 mg/dL Normal 0.6-1.0 [facility] Work Phone: Globulin Calculated mass conc (S) 3.6 g/dL Abnormal 2.3-3.5 [facility] Internal Medicine Work Phone: Glucose mass conc 128 mg/dL Abnormal 70-110 [facility] Work Phone: Comment on above: Fasting Glucose resu lt greater than or equal to 126 mg/dL suggests DIABETES MELLITUS per A.D.A. criteria. Potassium molar conc 5.3 mmol/L Abnormal 3.5-5.1 [facility] Work Phone: Protein mass conc 7.2 g/dL Normal 6.4-8.2 [facility] Work Phone: Sodium molar conc 136 mmol/L Normal 136-145 [facility] Work Phone: Urea nitrogen mass conc 11 mg/dL Normal 7-18 [facility] [facility] Work Phone: Urea nitrogen/Creatinine mass ratio 12.2 {RATIO} Normal 10-20 [facility] Internal [facility] Work Phone: ESROrdered By: System Manage r on 08-19-2006 ESR Velocity (Bld) 13 mm/h Normal 0-30 [facility] Work Phone: Vital Signs Date Time Vital Sign Value Performing Clinician Facility 07-15-2025 13:54-0400 Body temperature 96.5 [degF] Dr. Allen Morin MD Work Phone: 8(331)784-326468 [place] [address] 07-15-2025 13:54-0400 Diastolic blood pressure 41 mm[Hg] Dr. Allen Morin MD Work Phone: 6(128)078-226995 [place] [address] 07-15-2025 13:54-0400 Heart rate 55 /min Dr. Allen Morin MD Work Phone: 4(186)246-215795 [place] [address] 07-15-2025 13:54-0400 Respiratory rate 16 /min Dr. Allen Morin MD Work Phone: 2(635)962-461295 [place] [address] 07-15-2025 13:54-0400 SaO2% (BldA) [Mass fraction] 100 % Dr. Allen Morin MD Work Phone: 0(857)283-603995 [place] [address] 07-15-2025 13:54-0400 Systolic blood pressure 120 mm[Hg] Dr. Allen Morin MD Work Phone: 4(880)675-113395 [place] [address] 07-15-2025 12:28-0400 Body height 160.[address] Allen Morin MD Work Phone: 8(977)928-144395 [place] [address] 07-15-2025 12:28-0400 Body mass index (BMI) [Ratio] 23 kg/m2 Dr. Allen Morin MD Work Phone: 0(705)282-428195 [place] [address] 07-15-2025 12:28-0400 Body weight 58.[address] Allen Morin MD Work Phone: 1(982)900-221995 [place] [address] 06-15-2025 13:57-0400 Body temperature 97.8 [degF] Dr. Allen Morin MD Work Phone: 1(169)445-085895 [place] [address] 06-15-2025 13:57-0400 Diastolic blood pressure 54 mm[Hg] Dr. Allen Morin MD Work Phone: 9(043)885-017868 [place] [address] 06-15-2025 13:57-0400 Heart rate 63 /min Dr. Allen Morin MD Work Phone: 2(760)587-615468 [place] [address] 06-15-2025 13:57-0400 Respiratory rate 16 /min Dr. Allen Morin MD Work Phone: [facility] 06-15-2025 13:57-0400 SaO2% (BldA) [Mass fraction] 93 % Dr. Allen Morin MD Work Phone: 1(693)308-685168 [place] [address] 06-15-2025 13:57-0400 Systolic blood pressure 141 mm[Hg] Dr. Allen Morin MD Work Phone: 5(226)452-151595 [place] [address] 06-15-2025 12:25-0400 Body height 160.[address] Allen Morin MD Work Phone: 1(325)447-375395 [place] [address] 06-15-2025 12:25-0400 Body mass index (BMI) [Ratio] 23 kg/m2 Dr. Allen Morin MD Work Phone: 3(225)724-774195 [place] [address] 06-15-2025 12:25-0400 Body weight 58.[address] Allen Morin MD Work Phone: 9(249)137-735495 [place] [address] 05-18-2025 14:21-0400 Body temperature 96.6 [degF] Dr. Allen Morin MD Work Phone: 1(959)788-322095 [place] [address] 05-18-2025 14:21-0400 Diastolic blood pressure 46 mm[Hg] Dr. Allen Morin MD Work Phone: 7(175)038-598868 [place] [address] 05-18-2025 14:21-0400 Heart rate 76 /min Dr. Allen Morin MD Work Phone: 2(380)105-182168 [place] [address] 05-18-2025 14:21-0400 Respiratory rate 16 /min Dr. Allen Morin MD Work Phone: [facility] 05-18-2025 14:21-0400 SaO2% (BldA) [Mass fraction] 98 % Dr. Allen Morin MD Work Phone: 4(905)186-024668 [place] [address] 05-18-2025 14:21-0400 Systolic blood pressure 112 mm[Hg] Dr. Allen Morin MD Work Phone: 1(151)082-654368 [place] [address] 05-18-2025 12:34-0400 Body height 160.[address] Allen Morin MD Work Phone: [facility] 04-14-2025 13:44-0400 Diastolic blood pressure 58 mm[Hg] Dr. Allen Morin MD Work Phone: [facility] 04-14-2025 13:44-0400 Heart rate 58 /min Dr. Allen Morin MD Work Phone: 0(591)940-442068 [place] [address] 04-14-2025 13:44-0400 Systolic blood pressure 109 mm[Hg] Dr. Allen Morin MD Work Phone: 4(418)774-199968 [place] [address] 04-14-2025 12:01-0400 Body height 160.[address] Allen Morin MD Work Phone: 8(011)887-187095 [place] [address] 04-14-2025 12:01-0400 Body mass index (BMI) [Ratio] 23 kg/m2 Dr. Allen Morin MD Work Phone: 2(016)468-105895 [place] [address] 04-14-2025 12:01-0400 Body temperature 97.4 [degF] Dr. Allen Morin MD Work Phone: 0(187)591-280795 [place] [address] 04-14-2025 12:01-0400 Body weight 58.[address] Allen Morin MD Work Phone: 9(931)246-400168 [place] [address] 04-14-2025 12:01-0400 Respiratory rate 16 /min Dr. Allen Morin MD Work Phone: 6(998)505-173568 [place] [address] 04-14-2025 12:01-0400 SaO2% (BldA) [Mass fraction] 96 % Dr. Allen Morin MD Work Phone: 8(175)086-356768 [place] [address] 03-17-2025 13:21-0400 Body temperature 97.6 [degF] Dr. Allen Morin MD Work Phone: 0(796)772-058468 [place] [address] 03-17-2025 13:21-0400 Diastolic blood pressure 56 mm[Hg] Dr. Allen Morin MD Work Phone: 1(074)751-403968 [place] [address] 03-17-2025 13:21-0400 Heart rate 53 /min Dr. Allen Morin MD Work Phone: 8(176)170-346568 [place] [address] 03-17-2025 13:21-0400 Respiratory rate 16 /min Dr. Allen Morin MD Work Phone: 8(522)510-560795 [place] [address] 03-17-2025 13:21-0400 SaO2% (BldA) [Mass fraction] 96 % Dr. Allen Morin MD Work Phone: 6(861)532-913195 [place] [address] 03-17-2025 13:21-0400 Systolic blood pressure 117 mm[Hg] Dr. Allen Morin MD Work Phone: 9(936)193-045095 [place] [address] 03-17-2025 11:47-0400 Body height 160.[address] Allen Morin MD Work Phone: 6(778)805-000595 [place] [address] 02-17-2025 14:00-0400 Diastolic blood pressure 63 mm[Hg] Dr. Allen Morin MD Work Phone: 8(858)925-445495 [place] [address] 02-17-2025 14:00-0400 Heart rate 52 /min Dr. Allen Morin MD Work Phone: 9(655)125-235895 [place] [address] 02-17-2025 14:00-0400 Systolic blood pressure 150 mm[Hg] Dr. Allen Morin MD Work Phone: 2(385)697-086095 [place] [address] 02-17-2025 12:35-0400 Body height 160.[address] Allen Morni MD Work Phone: 7(924)542-226495 [place] [address] 02-17-2025 12:35-0400 Body mass index (BMI) [Ratio] 22.6 kg/m2 Dr. Allen Morin MD Work Phone: 3(133)772-398695 [place] [address] 02-17-2025 12:35-0400 Body temperature 96.4 [degF] Dr. Allen Morin MD Work Phone: 1(768)454-677895 [place] [address] 02-17-2025 12:35-0400 Body weight 58.[address] Allen Morin MD Work Phone: 1(015)178-760895 [place] [address] 02-17-2025 12:35-0400 Respiratory rate 14 /min Dr. Allen Morin MD Work Phone: 8(774)109-310295 [place] [address] 02-17-2025 12:35-0400 SaO2% (BldA) [Mass fraction] 98 % Dr. Allen Morin MD Work Phone: 0(832)738-463768 [place] [address] 01-20-2025 13:52-0400 Diastolic blood pressure 55 mm[Hg] Dr. Allen Morin MD Work Phone: 7(363)590-484495 [place] [address] 01-20-2025 13:52-0400 Heart rate 53 /min Dr. Allen Morin MD Work Phone: 4(726)217-268795 [place] [address] 01-20-2025 13:52-0400 Respiratory rate 14 /min Dr. Allen Morin MD Work Phone: 7(727)037-582995 [place] [address] 01-20-2025 13:52-0400 SaO2% (BldA) [Mass fraction] 94 % Dr. Allen Morin MD Work Phone: 9(627)400-840095 [place] [address] 01-20-2025 13:52-0400 Systolic blood pressure 103 mm[Hg] Dr. Allen Morin MD Work Phone: 6(748)397-292995 [place] [address] 01-20-2025 12:36-0400 Body height 160.[address] Allen Morin MD Work Phone: 5(398)128-121795 [place] [address] 01-20-2025 12:36-0400 Body mass index (BMI) [Ratio] 22.6 kg/m2 Dr. Allen Morin MD Work Phone: 8(993)566-722595 [place] [address] 01-20-2025 12:36-0400 Body weight 58.[address] Allen Morin MD Work Phone: 8(378)926-972295 [place] [address] 12-23-2024 14:08-0400 Diastolic blood pressure 55 mm[Hg] Dr. Allen Morin MD Work Phone: 5(230)952-063095 [place] [address] 12-23-2024 14:08-0400 Heart rate 58 /min Dr. Allen Morin MD Work Phone: 6(279)880-921368 [place] [address] 12-23-2024 14:08-0400 Systolic blood pressure 119 mm[Hg] Dr. Allen Morin MD Work Phone: 7(709)438-362695 [place] [address] 12-23-2024 12:51-0400 Body height 160.[address] Allen Morin MD Work Phone: 3(615)884-051095 [place] [address] 12-23-2024 12:51-0400 Body mass index (BMI) [Ratio] 22.6 kg/m2 Dr. Allen Morin MD Work Phone: 2(936)643-594895 [place] [address] 12-23-2024 12:51-0400 Body temperature 96.6 [degF] Dr. Allen Morin MD Work Phone: 7(200)281-170895 [place] [address] 12-23-2024 12:51-0400 Body weight 58.[address] Allen Morin MD Work Phone: 0(411)467-750495 [place] [address] 12-23-2024 12:51-0400 Respiratory rate 16 /min Dr. Allen Morin MD Work Phone: 8(081)269-579095 [place] [address] 12-23-2024 12:51-0400 SaO2% (BldA) [Mass fraction] 96 % Dr. Allen Morin MD Work Phone: 0(702)197-662995 [place] [address] 11-25-2024 14:09-0500 Diastolic blood pressure 58 mm[Hg] Dr. Allen Morin MD Work Phone: 1(083)933-920895 [place] [address] 11-25-2024 14:09-0500 Heart rate 55 /min Dr. Allen Morin MD Work Phone: 0(555)812-567695 [place] [address] 11-25-2024 14:09-0500 Systolic blood pressure 139 mm[Hg] Dr. Allen Morin MD Work Phone: 2(536)613-537295 [place] [address] 11-25-2024 12:46-0500 Body height 160.[address] Allen Morin MD Work Phone: 4(233)589-958895 [place] [address] 11-25-2024 12:46-0500 Body mass index (BMI) [Ratio] 22.6 kg/m2 Dr. Allen Morin MD Work Phone: 9(995)746-289495 [place] [address] 11-25-2024 12:46-0500 Body temperature 96.8 [degF] Dr. Allen Morin MD Work Phone: 0(392)668-738795 [place] [address] 11-25-2024 12:46-0500 Body weight 58.[address] Allen Morin MD Work Phone: 1(411)471-268595 [place] [address] 11-25-2024 12:46-0500 Respiratory rate 16 /min Dr. Allen Morin MD Work Phone: 1(167)987-839695 [place] [address] 11-25-2024 12:46-0500 SaO2% (BldA) [Mass fraction] 99 % Dr. Allen Morin MD Work Phone: 0(189)514-812895 [place] [address] 10-28-2024 14:12-0500 Diastolic blood pressure 63 mm[Hg] Dr. Allen Morin MD Work Phone: 5(424)808-335695 [place] [address] 10-28-2024 14:12-0500 Heart rate 54 /min Dr. Allen Morin MD Work Phone: 2(317)624-994795 [place] [address] 10-28-2024 14:12-0500 Systolic blood pressure 147 mm[Hg] Dr. Allen Morin MD Work Phone: 8(710)156-852395 [place] [address] 10-28-2024 12:50-0500 Body mass index (BMI) [Ratio] 22.6 kg/m2 Dr. Allen Morin MD Work Phone: 5(602)263-064895 [place] [address] 10-28-2024 12:50-0500 Body temperature 97.4 [degF] Dr. Allen Morin MD Work Phone: 3(169)928-647195 [place] [address] 10-28-2024 12:50-0500 Body weight 58.[address] Allen Morin MD Work Phone: 5(713)012-423595 [place] [address] 10-28-2024 12:50-0500 Respiratory rate 16 /min Dr. Allen Morin MD Work Phone: 9(111)775-727795 [place] [address] 10-28-2024 12:50-0500 SaO2% (BldA) [Mass fraction] 97 % Dr. Allen Morin MD Work Phone: 5(097)560-167395 [place] [address] 09-30-2024 13:50-0500 Body temperature 97.8 [degF] Dr. Allen Morin MD Work Phone: 9(398)065-986695 [place] [address] 09-30-2024 13:50-0500 Diastolic blood pressure 62 mm[Hg] Dr. Allen Morin MD Work Phone: [facility] 09-30-2024 13:50-0500 Heart rate 53 /min Dr. Allen Morin MD Work Phone: 0(253)210-488668 [place] [address] 09-30-2024 13:50-0500 Respiratory rate 16 /min Dr. Allen Morin MD Work Phone: 0(486)148-298568 [place] [address] 09-30-2024 13:50-0500 SaO2% (BldA) [Mass fraction] 99 % Dr. Allen Morin MD Work Phone: 3(217)662-426668 [place] [address] 09-30-2024 13:50-0500 Systolic blood pressure 145 mm[Hg] Dr. Allen Morin MD Work Phone: 3(859)812-589996 [address] 09-02-2024 14:11-0500 Diastolic blood pressure 65 mm[Hg] Dr. Allen Morin MD Work Phone: 1(591)427-642268 [place] [address] 09-02-2024 14:11-0500 Heart rate 72 /min Dr. Allen Morin MD Work Phone: 7(957)785-988268 [place] [address] 09-02-2024 14:11-0500 Systolic blood pressure 136 mm[Hg] Dr. Allen Morin MD Work Phone: 8(672)658-895868 [place] [address] 09-02-2024 12:58-0500 Body mass index (BMI) [Ratio] 22.6 kg/m2 Dr. Allen Morin MD Work Phone: 6(520)235-751368 [place] [address] 09-02-2024 12:58-0500 Body temperature 96.9 [degF] Dr. Allen Morin MD Work Phone: 3(662)209-669868 [place] [address] 09-02-2024 12:58-0500 Body weight 58.[address] Allen Morin MD Work Phone: 0(874)794-255768 [place] [address] 09-02-2024 12:58-0500 Respiratory rate 16 /min Dr. Allen Morin MD Work Phone: [facility] 09-02-2024 12:58-0500 SaO2% (BldA) [Mass fraction] 97 % Dr. Allen Morin MD Work Phone: [facility] 02-04-2024 13:43-0400 Body temperature 98.6 [degF] [facility] 02-04-2024 13:43-0400 Diastolic blood pressure 51 mm[Hg] [facility] 02-04-2024 13:43-0400 Heart rate 56 /min [facility] 02-04-2024 13:43-0400 Respiratory rate 14 /min [facility] 02-04-2024 13:43-0400 Systolic blood pressure 126 mm[Hg] [facility] 02-04-2024 12:40-0400 Body height 162.56 cm [facility] 02-04-2024 12:40-0400 SaO2% (BldA) [Mass fraction] 99 % [facility] 01-05-2024 14:12-0400 Diastolic blood pressure 56 mm[Hg] [facility] 01-05-2024 14:12-0400 Heart rate 60 /min [facility] 01-05-2024 14:12-0400 Systolic blood pressure 132 mm[Hg] [facility] 01-05-2024 12:44-0400 Body height 162.56 cm [facility] 01-05-2024 12:44-0400 Body mass index (BMI) [Ratio] 21.9 kg/m2 [facility] 01-05-2024 12:44-0400 Body temperature 98.8 [degF] [facility] 01-05-2024 12:44-0400 Body weight 58.05 kg [facility] 01-05-2024 12:44-0400 Respiratory rate 16 /min [facility] 01-05-2024 12:44-0400 SaO2% (BldA) [Mass fraction] 98 % [facility] 11-26-2023 13:28-0500 Body temperature 97.88 [degF] DR AMADOR GLORIA MD [facility] 11-26-2023 13:28-0500 Diastolic Blood Pressure Non-Invasive 57 mm[Hg] DR AMADOR GLORIA MD [facility] 11-26-2023 13:28-0500 Heart rate 62 /min DR AMADOR GLORIA MD [facility] 11-26-2023 13:28-0500 Reason For Taking VItal Signs DR AMADOR GLORIA MD [facility] 11-26-2023 13:28-0500 Respiratory rate 16 /min DR AMADOR GLORIA MD [facility] 11-26-2023 13:28-0500 Systolic Blood Pressure Non-Invasive 144 mm[Hg] DR AMADOR GLORIA MD [facility] 11-26-2023 11:36-0500 Body temperature 97.34 [degF] DR AMADOR GLORIA MD [facility] 11-26-2023 11:36-0500 Diastolic Blood Pressure Non-Invasive 57 mm[Hg] DR AMADOR GLORIA MD [facility] 11-26-2023 11:36-0500 Heart rate 66 /min DR AMADOR GLORIA MD [facility] 11-26-2023 11:36-0500 Reason For Taking VItal Signs DR AMADOR GLORIA MD [facility] 11-26-2023 11:36-0500 Respiratory rate 16 /min DR AMADOR GLORIA MD [facility] 11-26-2023 11:36-0500 Systolic Blood Pressure Non-Invasive 124 mm[Hg] DR AMADOR GLORIA MD [facility] 11-26-2023 08:36-0500 Diastolic Blood Pressure Non-Invasive 70 mm[Hg] DR AMADOR GLORIA MD [facility] 11-26-2023 08:36-0500 Heart rate 76 /min DR AMADOR GLORIA MD [facility] 11-26-2023 08:36-0500 Systolic Blood Pressure Non-Invasive 142 mm[Hg] DR AMADOR GLORIA MD [facility] 11-26-2023 08:06-0500 Body temperature 97.34 [degF] DR AMADOR GLORIA MD [facility] 11-26-2023 08:06-0500 Heart rate 66 /min DR AMADOR GLORIA MD [facility] 11-26-2023 08:06-0500 Reason For Taking VItal Signs DR AMADOR GLORIA MD [facility] 11-26-2023 04:30-0500 Heart rate 87 /min DR AMADOR GLORIA MD [facility] 11-26-2023 04:30-0500 Respiratory rate 16 /min DR AMADOR GLORIA MD [facility] 11-26-2023 00:05-0500 Heart rate 67 /min DR AMADOR GLORIA MD [facility] 11-25-2023 19:18-0500 Heart rate 72 /min DR AMADOR GLORIA MD [facility] 11-25-2023 16:05-0500 Body height [address] AMADOR GLOIRA MD [facility] 11-25-2023 16:05-0500 Body weight 59.[address] AMADOR GLORIA MD [facility] 11-25-2023 16:05-0500 Body weight 23.09 kg/m2 DR AMADOR GLORIA MD [facility] 11-25-2023 14:55-0500 Body temperature 97.16 [degF] DR AMADOR GLORIA MD [facility] 11-25-2023 14:50-0500 Respiratory Rate - Anes 0 br/min DR AMADOR GLORIA MD [facility] 11-25-2023 14:45-0500 Respiratory Rate - Anes 6 br/min DR AMADOR GLORIA MD [facility] 11-25-2023 14:40-0500 Respiratory Rate - Anes 6 br/min DR AMADOR GLORIA MD [facility] 11-25-2023 11:08-0500 Body weight 23.09 kg/m2 DR AMADOR GLORIA MD [facility] 11-25-2023 10:55-0500 Body height [address] AMADOR GLORIA MD [facility] 11-25-2023 10:55-0500 Body temperature 97.88 [degF] DR AMADOR GLORIA MD [facility] 11-25-2023 10:55-0500 Body weight 59.[address] AMADOR GLORIA MD [facility] 09-18-2023 13:58-0500 Diastolic blood pressure 57 mm[Hg] [facility] 09-18-2023 13:58-0500 Heart rate 59 /min [facility] 09-18-2023 13:58-0500 Systolic blood pressure 135 mm[Hg] [facility] 09-18-2023 12:33-0500 Body height 162.56 cm [facility] 09-18-2023 12:33-0500 Body mass index (BMI) [Ratio] 22.3 kg/m2 [facility] 09-18-2023 12:33-0500 Body temperature 97.1 [degF] [facility] 09-18-2023 12:33-0500 Body weight 58.96 kg [facility] 09-18-2023 12:33-0500 Respiratory rate 16 /min [facility] 09-18-2023 12:33-0500 SaO2% (BldA) [Mass fraction] 100 % [facility] 08-14-2023 13:57-0400 Body temperature 98 [degF] [facility] 08-14-2023 13:57-0400 Diastolic blood pressure 67 mm[Hg] [facility] 08-14-2023 13:57-0400 Heart rate 61 /min [facility] 08-14-2023 13:57-0400 Respiratory rate 16 /min [facility] 08-14-2023 13:57-0400 SaO2% (BldA) [Mass fraction] 98 % [facility] 08-14-2023 13:57-0400 Systolic blood pressure 168 mm[Hg] [facility] 08-14-2023 12:46-0400 Body height 162.56 cm [facility] 08-14-2023 12:46-0400 Body mass index (BMI) [Ratio] 22.3 kg/m2 [facility] 08-14-2023 12:46-0400 Body weight 58.96 kg [facility] 07-17-2023 13:39-0400 Body temperature 98.1 [degF] [facility] 07-17-2023 13:39-0400 Diastolic blood pressure 58 mm[Hg] [facility] 07-17-2023 13:39-0400 Heart rate 70 /min [facility] 07-17-2023 13:39-0400 Respiratory rate 16 /min [facility] 07-17-2023 13:39-0400 SaO2% (BldA) [Mass fraction] 98 % [facility] 07-17-2023 13:39-0400 Systolic blood pressure 108 mm[Hg] [facility] 06-19-2023 13:44-0400 Body temperature 96.8 [degF] [facility] 06-19-2023 13:44-0400 Diastolic blood pressure 50 mm[Hg] [facility] 06-19-2023 13:44-0400 Heart rate 60 /min [facility] 06-19-2023 13:44-0400 Respiratory rate 16 /min [facility] 06-19-2023 13:44-0400 SaO2% (BldA) [Mass fraction] 98 % [facility] 06-19-2023 13:44-0400 Systolic blood pressure 111 mm[Hg] [facility] 06-19-2023 12:41-0400 Body height 162.56 cm [facility] 05-15-2023 14:01-0400 Diastolic blood pressure 65 mm[Hg] [facility] 05-15-2023 14:01-0400 Heart rate 57 /min [facility] 05-15-2023 14:01-0400 Respiratory rate 16 /min [facility] 05-15-2023 14:01-0400 Systolic blood pressure 140 mm[Hg] [facility] 04-17-2023 14:06-0400 Diastolic blood pressure 56 mm[Hg] [facility] 04-17-2023 14:06-0400 Heart rate 55 /min [facility] 04-17-2023 14:06-0400 Systolic blood pressure 120 mm[Hg] [facility] 04-17-2023 12:47-0400 Body height 162.56 cm [facility] 04-17-2023 12:47-0400 Body temperature 97.2 [degF] [facility] 04-17-2023 12:47-0400 Respiratory rate 16 /min [facility] 04-17-2023 12:47-0400 SaO2% (BldA) [Mass fraction] 96 % [facility] 03-13-2023 12:35-0400 Body height 162.56 cm [facility] 03-13-2023 12:35-0400 Body mass index (BMI) [Ratio] 22.3 kg/m2 [facility] 03-13-2023 12:35-0400 Body weight 58.96 kg [facility] 03-13-2023 12:35-0400 Diastolic blood pressure 52 mm[Hg] [facility] 03-13-2023 12:35-0400 Heart rate 57 /min [facility] 03-13-2023 12:35-0400 Respiratory rate 16 /min [facility] 03-13-2023 12:35-0400 SaO2% (BldA) [Mass fraction] 97 % [facility] 03-13-2023 12:35-0400 Systolic blood pressure 104 mm[Hg] [facility] 02-13-2023 13:53-0400 Body temperature 97.8 [degF] [facility] 02-13-2023 13:53-0400 Heart rate 54 /min [facility] 02-13-2023 13:53-0400 Respiratory rate 14 /min [facility] 02-13-2023 13:53-0400 SaO2% (BldA) [Mass fraction] 97 % [facility] 02-13-2023 12:46-0400 Body height 162.56 cm [facility] 02-13-2023 12:46-0400 Diastolic blood pressure 52 mm[Hg] [facility] 02-13-2023 12:46-0400 Systolic blood pressure 105 mm[Hg] [facility] 01-16-2023 13:36-0400 Body temperature 97.4 [degF] [facility] 01-16-2023 13:36-0400 Diastolic blood pressure 62 mm[Hg] [facility] 01-16-2023 13:36-0400 Heart rate 58 /min [facility] 01-16-2023 13:36-0400 Respiratory rate 16 /min [facility] 01-16-2023 13:36-0400 SaO2% (BldA) [Mass fraction] 96 % [facility] 01-16-2023 13:36-0400 Systolic blood pressure 140 mm[Hg] [facility] 12-12-2022 13:35-0500 Body temperature 97.5 [degF] [facility] 12-12-2022 13:35-0500 Diastolic blood pressure 63 mm[Hg] [facility] 12-12-2022 13:35-0500 Heart rate 55 /min [facility] 12-12-2022 13:35-0500 Respiratory rate 16 /min [facility] 12-12-2022 13:35-0500 Systolic blood pressure 124 mm[Hg] [facility] 12-12-2022 12:26-0500 Body height 162.56 cm [facility] 12-12-2022 12:26-0500 Body mass index (BMI) [Ratio] 22.3 kg/m2 [facility] 12-12-2022 12:26-0500 Body weight 58.96 kg [facility] 12-12-2022 12:26-0500 SaO2% (BldA) [Mass fraction] 95 % [facility] 11-14-2022 13:45-0500 Diastolic blood pressure 64 mm[Hg] [facility] 11-14-2022 13:45-0500 Heart rate 62 /min [facility] 11-14-2022 13:45-0500 Systolic blood pressure 135 mm[Hg] [facility] 11-14-2022 12:40-0500 Body height 162.56 cm [facility] 11-14-2022 12:40-0500 Body temperature 98 [degF] [facility] 11-14-2022 12:40-0500 Respiratory rate 16 /min [facility] 11-14-2022 12:40-0500 SaO2% (BldA) [Mass fraction] 99 % [facility] 10-17-2022 13:51-0500 Body temperature 98.3 [degF] [facility] 10-17-2022 13:51-0500 Diastolic blood pressure 54 mm[Hg] [facility] 10-17-2022 13:51-0500 Heart rate 55 /min [facility] 10-17-2022 13:51-0500 SaO2% (BldA) [Mass fraction] 99 % [facility] 10-17-2022 13:51-0500 Systolic blood pressure 144 mm[Hg] [facility] 10-17-2022 12:30-0500 Body height 162.56 cm [facility] Work Phone: 10-17-2022 12:30-0500 Body mass index (BMI) [Ratio] 21.9 kg/m2 [facility] 10-17-2022 12:30-0500 Body weight 58.05 kg [facility] 10-17-2022 12:30-0500 Respiratory rate 16 /min [facility] 09-12-2022 13:55-0500 Body temperature 97.7 [degF] [facility] 09-12-2022 13:55-0500 Diastolic blood pressure 50 mm[Hg] [facility] 09-12-2022 13:55-0500 Heart rate 58 /min [facility] 09-12-2022 13:55-0500 Respiratory rate 16 /min [facility] 09-12-2022 13:55-0500 Systolic blood pressure 118 mm[Hg] [facility] 09-12-2022 12:53-0500 SaO2% (BldA) [Mass fraction] 96 % [facility] 08-13-2022 13:27-0400 Body temperature 96.9 [degF] [facility] 08-13-2022 13:27-0400 Diastolic blood pressure 68 mm[Hg] [facility] 08-13-2022 13:27-0400 Heart rate 55 /min [facility] 08-13-2022 13:27-0400 Respiratory rate 14 /min [facility] 08-13-2022 13:27-0400 Systolic blood pressure 145 mm[Hg] [facility] 08-13-2022 12:24-0400 Body height 162.56 cm [facility] Work Phone: 08-13-2022 12:24-0400 Body mass index (BMI) [Ratio] 21.9 kg/m2 [facility] 08-13-2022 12:24-0400 Body weight 58.05 kg [facility] 07-15-2022 13:24-0400 Body temperature 97.8 [degF] Dr. Sade Matthews Work Phone: [facility] Work Phone: 07-15-2022 13:24-0400 Diastolic blood pressure 61 mm[Hg] Dr. Sade Matthews Work Phone: [facility] Work Phone: 07-15-2022 13:24-0400 Heart rate 61 /min Dr. Sade Matthews Work Phone: [facility] Work Phone: 07-15-2022 13:24-0400 Respiratory rate 16 /min Dr. Sade Matthews Work Phone: [facility] Work Phone: 07-15-2022 13:24-0400 SaO2% (BldA) [Mass fraction] 96 % Dr. Sade Matthews Work Phone: [facility] Work Phone: 07-15-2022 13:24-0400 Systolic blood pressure 126 mm[Hg] Dr. Sade Matthews Work Phone: [facility] Work Phone: 07-15-2022 12:27-0400 Body height 162.[address] Sade Matthews Work Phone: [facility] Work Phone: 07-15-2022 12:27-0400 Body mass index (BMI) [Ratio] 22.3 kg/m2 Dr. Sade Matthews Work Phone: [facility] Work Phone: 07-15-2022 12:27-0400 Body weight 58.[address] Sade Matthews Work Phone: [facility] Work Phone: 06-14-2022 13:38-0400 Diastolic blood pressure 56 mm[Hg] Dr. Sade Matthews Work Phone: [facility] Work Phone: 06-14-2022 13:38-0400 Heart rate 56 /min Dr. Sade Matthews Work Phone: [facility] Work Phone: 06-14-2022 13:38-0400 Respiratory rate 16 /min Dr. Sade Matthews Work Phone: [facility] Work Phone: 06-14-2022 13:38-0400 SaO2% (BldA) [Mass fraction] 98 % Dr. Sade Matthews Work Phone: [facility] Work Phone: 06-14-2022 13:38-0400 Systolic blood pressure 137 mm[Hg] Dr. Sade Matthews Work Phone: [facility] Work Phone: 06-14-2022 12:37-0400 Body height 162.[address] Sade Matthews Work Phone: [facility] Work Phone: 06-14-2022 12:37-0400 Body mass index (BMI) [Ratio] 21.9 kg/m2 Dr. Sade Matthews Work Phone: [facility] Work Phone: 06-14-2022 12:37-0400 Body temperature 97.1 [degF] Dr. Sade Matthews Work Phone: [facility] Work Phone: 06-14-2022 12:37-0400 Body weight 58.[address] Sade Matthews Work Phone: [facility] Work Phone: 05-17-2022 13:37-0400 Body temperature 97.7 [degF] Dr. Sade Matthews Work Phone: [facility] Work Phone: 05-17-2022 13:37-0400 Diastolic blood pressure 51 mm[Hg] Dr. Sade Matthews Work Phone: [facility] Work Phone: 05-17-2022 13:37-0400 Heart rate 58 /min Dr. Sade Matthews Work Phone: [facility] Work Phone: 05-17-2022 13:37-0400 Respiratory rate 16 /min Dr. Sade Matthews Work Phone: [facility] Work Phone: 05-17-2022 13:37-0400 SaO2% (BldA) [Mass fraction] 97 % Dr. Sade Matthews Work Phone: [facility] Work Phone: 05-17-2022 13:37-0400 Systolic blood pressure 120 mm[Hg] Dr. Sade Matthews Work Phone: [facility] Work Phone: 05-17-2022 12:29-0400 Body height 162.[address] Sade Matthews Work Phone: [facility] Work Phone: 04-12-2022 13:32-0400 Body temperature 97.9 [degF] Dr. Sade Matthews Work Phone: [facility] Work Phone: 04-12-2022 13:32-0400 Diastolic blood pressure 53 mm[Hg] Dr. Sade Matthews Work Phone: [facility] Work Phone: 04-12-2022 13:32-0400 Heart rate 51 /min Dr. Sade Matthews Work Phone: [facility] Work Phone: 04-12-2022 13:32-0400 Respiratory rate 16 /min Dr. Sade Matthews Work Phone: [facility] Work Phone: 04-12-2022 13:32-0400 SaO2% (BldA) [Mass fraction] 97 % Dr. Sade Matthews Work Phone: [facility] Work Phone: 04-12-2022 13:32-0400 Systolic blood pressure 116 mm[Hg] Dr. Sade Matthews Work Phone: [facility] Work Phone: 04-12-2022 12:30-0400 Body height 162.[address] Sade Matthews Work Phone: [facility] Work Phone: 04-12-2022 12:30-0400 Body mass index (BMI) [Ratio] 21.9 kg/m2 Dr. Sade Matthews Work Phone: [facility] Work Phone: 04-12-2022 12:30-0400 Body weight 58.[address] Sade Matthews Work Phone: [facility] Work Phone: 03-22-2022 11:53-0400 Body mass index (BMI) [Ratio] 22.3 kg/m2 Dr. Sade Matthews Work Phone: [facility] Work Phone: 03-22-2022 11:53-0400 Body temperature 98.1 [degF] Dr. Sade Matthews Work Phone: [facility] Work Phone: 03-22-2022 11:53-0400 Body weight 58.[address] Sade Matthews Work Phone: [facility] Work Phone: 03-22-2022 11:53-0400 Diastolic blood pressure 68 mm[Hg] Dr. Sade Matthews Work Phone: [facility] Work Phone: 03-22-2022 11:53-0400 Heart rate 76 /min Dr. Sade Matthews Work Phone: [facility] Work Phone: 03-22-2022 11:53-0400 Respiratory rate 16 /min Dr. Sade Matthews Work Phone: [facility] Work Phone: 03-22-2022 11:53-0400 SaO2% (BldA) [Mass fraction] 97 % Dr. Sade Matthews Work Phone: [facility] Work Phone: 03-22-2022 11:53-0400 Systolic blood pressure 160 mm[Hg] Dr. Sade Matthews Work Phone: [facility] Work Phone: 03-15-2022 13:54-0400 Body temperature 97 [degF] [facility] Work Phone: 03-15-2022 13:54-0400 Diastolic blood pressure 54 mm[Hg] [facility] Work Phone: 03-15-2022 13:54-0400 Heart rate 58 /min [facility] Work Phone: 03-15-2022 13:54-0400 Respiratory rate 12 /min [facility] Work Phone: 03-15-2022 13:54-0400 Systolic blood pressure 112 mm[Hg] [facility] Work Phone: 03-15-2022 12:53-0400 Body height 162.56 cm [facility] Work Phone: 03-15-2022 12:53-0400 SaO2% (BldA) [Mass fraction] 97 % [facility] Work Phone: 02-15-2022 14:00-0400 Body temperature 98.5 [degF] [facility] Work Phone: 02-15-2022 14:00-0400 Diastolic blood pressure 60 mm[Hg] [facility] Work Phone: 02-15-2022 14:00-0400 Heart rate 53 /min [facility] Work Phone: 02-15-2022 14:00-0400 Respiratory rate 16 /min [facility] Work Phone: 02-15-2022 14:00-0400 SaO2% (BldA) [Mass fraction] 97 % [facility] Work Phone: 02-15-2022 14:00-0400 Systolic blood pressure 147 mm[Hg] [facility] Work Phone: 02-15-2022 12:59-0400 Body height 162.56 cm [facility] Work Phone: 01-11-2022 14:08-0400 Body temperature 98.2 [degF] [facility] Work Phone: 01-11-2022 14:08-0400 Diastolic blood pressure 52 mm[Hg] [facility] Work Phone: 01-11-2022 14:08-0400 Heart rate 57 /min [facility] Work Phone: 01-11-2022 14:08-0400 Respiratory rate 16 /min [facility] Work Phone: 01-11-2022 14:08-0400 SaO2% (BldA) [Mass fraction] 98 % [facility] Work Phone: 01-11-2022 14:08-0400 Systolic blood pressure 127 mm[Hg] [facility] Work Phone: 01-11-2022 12:51-0400 Body height 162.56 cm [facility] Work Phone: 12-13-2021 12:56-0500 Body temperature 98.1 [degF] [facility] Work Phone: 12-13-2021 12:56-0500 Diastolic blood pressure 61 mm[Hg] [facility] Work Phone: 12-13-2021 12:56-0500 Heart rate 61 /min [facility] Work Phone: 12-13-2021 12:56-0500 Respiratory rate 16 /min [facility] Work Phone: 12-13-2021 12:56-0500 SaO2% (BldA) [Mass fraction] 96 % [facility] Work Phone: 12-13-2021 12:56-0500 Systolic blood pressure 113 mm[Hg] [facility] Work Phone: 11-19-2021 12:35-0500 Diastolic blood pressure 69 mm[Hg] [facility] Work Phone: 11-19-2021 12:35-0500 Heart rate 59 /min [facility] Work Phone: 11-19-2021 12:35-0500 Respiratory rate 18 /min [facility] Work Phone: 11-19-2021 12:35-0500 SaO2% (BldA) [Mass fraction] 98 % [facility] Work Phone: 11-19-2021 12:35-0500 Systolic blood pressure 169 mm[Hg] [facility] Work Phone: 11-19-2021 10:42-0500 Body mass index (BMI) [Ratio] 22.1 kg/m2 [facility] Work Phone: 11-19-2021 10:42-0500 Body temperature 97.4 [degF] [facility] Work Phone: 11-19-2021 10:42-0500 Body weight 58.51 kg [facility] Work Phone: 11-15-2021 09:39-0500 Body mass index (BMI) [Ratio] 22.1 kg/m2 [facility] Work Phone: 11-15-2021 09:39-0500 Body temperature 98.2 [degF] [facility] Work Phone: 11-15-2021 09:39-0500 Body weight 58.51 kg [facility] Work Phone: 11-15-2021 09:39-0500 Diastolic blood pressure 63 mm[Hg] [facility] Work Phone: 11-15-2021 09:39-0500 Heart rate 57 /min [facility] Work Phone: 11-15-2021 09:39-0500 Respiratory rate 14 /min [facility] Work Phone: 11-15-2021 09:39-0500 SaO2% (BldA) [Mass fraction] 96 % [facility] Work Phone: 11-15-2021 09:39-0500 Systolic blood pressure 113 mm[Hg] [facility] Work Phone: 10-18-2021 11:10-0500 Body temperature 97.6 [degF] [facility] Work Phone: 10-18-2021 11:10-0500 Diastolic blood pressure 57 mm[Hg] [facility] Work Phone: 10-18-2021 11:10-0500 Heart rate 60 /min [facility] Work Phone: 10-18-2021 11:10-0500 Respiratory rate 16 /min [facility] Work Phone: 10-18-2021 11:10-0500 SaO2% (BldA) [Mass fraction] 96 % [facility] Work Phone: 10-18-2021 11:10-0500 Systolic blood pressure 110 mm[Hg] [facility] Work Phone: 04-05-2021 07:11-0400 Body height 162.56 cm [facility]; [facility] Work Phone: 04-05-2021 07:11-0400 Body mass index (BMI) [Ratio] 21.89 kg/m2 [facility]; [facility] Work Phone: 04-05-2021 07:11-0400 Body surface area Derived from formula 1.62 m2 [facility]; [facility] Work Phone: 04-05-2021 07:11-0400 Body weight 57.83 kg [facility]; [facility] Work Phone: 03-30-2021 07:35-0400 Body height 162.56 cm Sade Cassie DO Work Phone: [facility]; [facility] Work Phone: 03-30-2021 07:35-0400 Body mass index (BMI) [Ratio] 21.89 kg/m2 Sade Cassie DO Work Phone: [facility]; [facility] Work Phone: 03-30-2021 07:35-0400 Body surface area Derived from formula 1.62 m2 Sade Cassie DO Work Phone: [facility]; [facility] Work Phone: 03-30-2021 07:35-0400 Body weight 57.83 kg Sade Cassie DO Work Phone: [facility]; [facility] Work Phone: 10-25-2020 12:46-0500 Body height 162.56 cm Sade Cassie DO Work Phone: [facility]; [facility] Work Phone: Comment on above: virtual visit- this is bp when active 10-25-2020 12:46-0500 Body mass index (BMI) [Ratio] 21.89 kg/m2 Sade Leeson DO Work Phone: [facility]; [facility] Work Phone: Comment on above: virtual visit- this is bp when active 10-25-2020 12:46-0500 Body surface area Derived from formula 1.62 m2 Sade Matthews DO Work Phone: [facility]; [facility] Work Phone: Comment on above: virtual visit- this is bp when active 10-25-2020 12:46-0500 Body weight 57.83 kg Sade Leeson DO Work Phone: [facility]; [facility] Work Phone: Comment on above: virtual visit- this is bp when active 10-25-2020 12:46-0500 Diastolic blood pressure 80 mm[Hg] Sade Leeson DO Work Phone: [facility]; [facility] Work Phone: Comment on above: Patient Position: Sitting virtual visit- this is bp when active 10-25-2020 12:46-0500 Systolic blood pressure 140 mm[Hg] Sade Matthews DO Work Phone: [facility]; [facility] Work Phone: Comment on above: Patient Position: Sitting virtual visit- this is bp when active 10-18-2020 10:46-0500 BMI (Body Mass Index) 21.89 kg/m2 [facility]; [facility] Work Phone: 10-18-2020 10:46-0500 Body weight 57.83 kg [facility]; [facility] Work Phone: 10-18-2020 10:46-0500 BSA (Body Surface Area) 1.62 m2 [facility]; [facility] Work Phone: 10-18-2020 10:46-0500 Height 162.56 cm [facility]; [facility] Work Phone: 08-20-2019 10:49-0500 BMI (Body Mass Index) 21.89 kg/m2 Renita Richardson RN [facility] Work Phone: Comment on above: hearing wnlDr. Fenzal and had a glaucoma test done 08-20-2019 10:49-0500 Body weight 57.83 kg Renita Richardson RN [facility] Work Phone: Comment on above: hearing wnlDr. Fenzal and had a glaucoma test done 08-20-2019 10:49-0500 BP Diastolic 90 mm[Hg] Renita Richardson RN [facility] Work Phone: Comment on above: Patient Position: Sitting; Cuff Location : Left Arm; Cuff Size: Standard hearing wnlDr. Fenza l and had a glaucoma test done 08-20-2019 10:49-0500 BP Systolic 128 mm[Hg] Renita Richardson RN [facility] Work Phone: Comment on above: Patient Position: Sitting; Cuff Location : Left Arm; Cuff Size: Standard hearing wnlDr. Fenza l and had a glaucoma test done 08-20-2019 10:49-0500 BSA (Body Surface Area) 1.62 m2 Renita Richardson RN [facility] Work Phone: Comment on above: hearing wnlDr. Fenzal and had a glaucoma test done 08-20-2019 10:49-0500 Height 162.56 cm Renita Richardson RN [facility] Work Phone: Comment on above: hearing wnlDr. Fenzal and had a glaucoma test done 08-20-2019 10:49-0500 Pulse (Heart Rate) 59 /min Renita Richardson RN [facility] Work Phone: Comment on above: Pattern: Regular hearing wnlDr. Fenza l and had a glaucoma test done 08-20-2019 10:49-0500 Pulse Oximetry 98 % Sade Matthews [facility] Work Phone: Comment on above: Room air hearing wnlDr. Fenza l and had a glaucoma test done 08-20-2019 10:49-0500 Respiratory Rate 18 /min Renita Richardson RN [facility] Work Phone: Comment on above: Pattern: Unlabored hearing wnlDr. Bret l and had a glaucoma test done 08-20-2019 10:49-0500 SaO2% (BldA) [Mass fraction] 98 % Renita Richardson RN [facility]; [facility] Work Phone: Comment on above: Room air hearing wnlDr. Bret l and had a glaucoma test done 07-17-2018 12:03-0400 BMI (Body Mass Index) 22.23 kg/m2 Renita Richardson RN [facility] Work Phone: 07-17-2018 12:03-0400 Body weight 58.74 kg Renita Richardson RN [facility] Work Phone: 07-17-2018 12:03-0400 BP Diastolic 78 mm[Hg] Renita Richardson RN [facility] Work Phone: Comment on above: Patient Position: Sitting; Cuff Location : Left Arm; Cuff Size: Standard 07-17-2018 12:03-0400 BP Systolic 128 mm[Hg] Renita Richardson RN [facility] Work Phone: Comment on above: Patient Position: Sitting; Cuff Location : Left Arm; Cuff Size: Standard 07-17-2018 12:03-0400 BSA (Body Surface Area) 1.63 m2 Renita Richardson RN [facility] Work Phone: 07-17-2018 12:03-0400 Height 162.56 cm Renita Richardson RN [facility] Work Phone: 07-17-2018 12:03-0400 Pulse (Heart Rate) 49 /min Renita Richardson RN [facility] Work Phone: Comment on above: Pattern: Regular 07-17-2018 12:03-0400 Pulse Oximetry 98 % Sade Cassie [facility] Work Phone: Comment on above: Room air 07-17-2018 12:03-0400 Respiratory Rate 18 /min Renita Richardson RN [facility] Work Phone: Comment on above: Pattern: Unlabored 07-17-2018 12:03-0400 SaO2% (BldA) [Mass fraction] 98 % Renita Richardson RN [facility]; [facility] Work Phone: Comment on above: Room air 07-17-2018 12:03-0400 Weight 58.74 kg Sade Matthews [facility] Work Phone: 06-04-2017 11:41-0400 BMI (Body Mass Index) 22.19 kg/m2 Renita Richardson RN [facility] Work Phone: 06-04-2017 11:41-0400 Body weight 58.63 kg Renita Richardson RN [facility] Work Phone: 06-04-2017 11:41-0400 BP Diastolic 88 mm[Hg] Renita Richardson RN [facility] Work Phone: Comment on above: Patient Position: Sitting; Cuff Location : Left Arm; Cuff Size: Standard 06-04-2017 11:41-0400 BP Systolic 148 mm[Hg] Renita Richardson RN [facility] Work Phone: Comment on above: Patient Position: Sitting; Cuff Location : Left Arm; Cuff Size: Standard 06-04-2017 11:41-0400 BSA (Body Surface Area) 1.62 m2 Renita Richardson RN [facility] Work Phone: 06-04-2017 11:41-0400 Height 162.56 cm Renita Richardson RN [facility] Work Phone: 06-04-2017 11:41-0400 Pulse (Heart Rate) 65 /min Renita Richardson RN [facility] Work Phone: Comment on above: Pattern: Regular 06-04-2017 11:41-0400 Pulse Oximetry 96 % Sade Matthews [facility] Work Phone: Comment on above: Room air 06-04-2017 11:41-0400 Respiratory Rate 18 /min Renita Richardson RN [facility] Work Phone: Comment on above: Pattern: Unlabored 06-04-2017 11:41-0400 SaO2% (BldA) [Mass fraction] 96 % Renita Richardson RN [facility]; [facility] Work Phone: Comment on above: Room air 06-04-2017 11:41-0400 Weight 58.63 kg Sade Matthews [facility] Work Phone: 06-07-2016 14:55-0400 BMI (Body Mass Index) 22.68 kg/m2 Renita Richardson RN [facility] Work Phone: 06-07-2016 14:55-0400 Body weight 59.93 kg Renita Richardson RN [facility] Work Phone: 06-07-2016 14:55-0400 BP Diastolic 78 mm[Hg] Renita Richardson RN [facility] Work Phone: Comment on above: Patient Position: Sitting; Cuff Location : Left Arm; Cuff Size: Standard 06-07-2016 14:55-0400 BP Systolic 120 mm[Hg] Renita Richardson RN [facility] Work Phone: Comment on above: Patient Position: Sitting; Cuff Location : Left Arm; Cuff Size: Standard 06-07-2016 14:55-0400 BSA (Body Surface Area) 1.64 m2 Renita Richardson RN [facility] Work Phone: 06-07-2016 14:55-0400 Height 162.56 cm Renita Richardson RN [facility] Work Phone: 06-07-2016 14:55-0400 Pulse (Heart Rate) 66 /min Renita Richardson RN [facility] Work Phone: Comment on above: Pattern: Regular 06-07-2016 14:55-0400 Pulse Oximetry 97 % Sade Matthews [facility] Work Phone: Comment on above: Room air 06-07-2016 14:55-0400 Respiratory Rate 18 /min Renita Richardson RN [facility] Work Phone: Comment on above: Pattern: Unlabored 06-07-2016 14:55-0400 SaO2% (BldA) [Mass fraction] 97 % Renita Richardson RN [facility]; [facility] Work Phone: Comment on above: Room air 06-07-2016 14:55-0400 Weight 59.93 kg Sade Matthews [facility] Work Phone: 06-07-2015 13:36-0400 BMI (Body Mass Index) 23.24 kg/m2 Payal Manchak [facility] Work Phone: 06-07-2015 13:36-0400 Body Temperature 98.2 [degF] Payal Harper [facility] Work Phone: Comment on above: Method: Temporal 06-07-2015 13:36-0400 Body weight 61.41 kg Payal Harper [facility] Work Phone: 06-07-2015 13:36-0400 BP Diastolic 80 mm[Hg] Payal Harper [facility] Work Phone: Comment on above: Patient Position: Sitting; Cuff Location : Left Arm; Cuff Size: Standard 06-07-2015 13:36-0400 BP Systolic 140 mm[Hg] Payal Harper [facility] Work Phone: Comment on above: Patient Position: Sitting; Cuff Location : Left Arm; Cuff Size: Standard 06-07-2015 13:36-0400 BSA (Body Surface Area) 1.66 m2 Payal Harper [facility] Work Phone: 06-07-2015 13:36-0400 Height 162.56 cm Payal Harper [facility] Work Phone: 06-07-2015 13:36-0400 Pulse (Heart Rate) 56 /min Payal Harper [facility] Work Phone: Comment on above: Pattern: Regular 06-07-2015 13:36-0400 Pulse Oximetry 98 % Sade Matthews [facility] Work Phone: Comment on above: Room air 06-07-2015 13:36-0400 Respiratory Rate 16 /min Payal Harper [facility] Work Phone: Comment on above: Pattern: Unlabored 06-07-2015 13:36-0400 SaO2% (BldA) [Mass fraction] 98 % Payal Harper [facility]; [facility] Work Phone: Comment on above: Room air 06-07-2015 13:36-0400 Weight 61.41 kg Sade Matthews [facility] Work Phone: 05-17-2015 13:24-0400 BMI (Body Mass Index) 23.07 kg/m2 Renita Richardson RN [facility] Work Phone: 05-17-2015 13:24-0400 Body weight 60.95 kg Renita Richardson RN [facility] Work Phone: 05-17-2015 13:24-0400 BP Diastolic 84 mm[Hg] Renita Richardson RN [facility] Work Phone: Comment on above: Patient Position: Sitting; Cuff Location : Left Arm; Cuff Size: Large 05-17-2015 13:24-0400 BP Systolic 138 mm[Hg] Renita Richardson RN [facility] Work Phone: Comment on above: Patient Position: Sitting; Cuff Location : Left Arm; Cuff Size: Large 05-17-2015 13:24-0400 BSA (Body Surface Area) 1.65 m2 Renita Richardson RN [facility] Work Phone: 05-17-2015 13:24-0400 Height 162.56 cm Renita Richardson RN [facility] Work Phone: 05-17-2015 13:24-0400 Pulse (Heart Rate) 65 /min Renita Richardson RN [facility] Work Phone: Comment on above: Pattern: Regular 05-17-2015 13:24-0400 Pulse Oximetry 98 % Sade Leeson [facility] Work Phone: Comment on above: Room air 05-17-2015 13:24-0400 Respiratory Rate 18 /min Renita Richardson RN [facility] Work Phone: Comment on above: Pattern: Unlabored 05-17-2015 13:24-0400 SaO2% (BldA) [Mass fraction] 98 % Renita Richardson RN [facility]; [facility] Work Phone: Comment on above: Room air 05-17-2015 13:24-0400 Weight 60.95 kg Sade Matthews [facility] Work Phone: 03-29-2013 16:23-0400 BMI (Body Mass Index) 23.71 kg/m2 Renita Richardson RN [facility] Work Phone: 03-29-2013 16:23-0400 Body Temperature 98.3 [degF] Renita Richardson RN [facility] Work Phone: Comment on above: Method: Oral 03-29-2013 16:23-0400 Body weight 62.65 kg Renita Richardson RN [facility] Work Phone: 03-29-2013 16:23-0400 BP Diastolic 62 mm[Hg] Renita Richardson RN [facility] Work Phone: Comment on above: Patient Position: Sitting; Cuff Location : Left Arm; Cuff Size: Standard 03-29-2013 16:23-0400 BP Systolic 130 mm[Hg] Renita Richardson RN [facility] Work Phone: Comment on above: Patient Position: Sitting; Cuff Location : Left Arm; Cuff Size: Standard 03-29-2013 16:23-0400 BSA (Body Surface Area) 1.67 m2 Renita Richardson RN [facility] Work Phone: 03-29-2013 16:23-0400 Height 162.56 cm Renita Richardson RN [facility] Work Phone: 03-29-2013 16:23-0400 Pulse (Heart Rate) 64 /min Renita Richardson RN [facility] Work Phone: Comment on above: Pattern: Regular 03-29-2013 16:23-0400 Respiratory Rate 20 /min Renita Richardson RN [facility] Work Phone: Comment on above: Pattern: Unlabored 03-29-2013 16:23-0400 Weight 62.65 kg Sade Matthews [facility] Work Phone: 04-25-2011 12:52-0400 BMI (Body Mass Index) 23.55 kg/m2 Renita Richardson RN [facility] Work Phone: 04-25-2011 12:52-0400 Body weight 62.23 kg Renita Richardson RN [facility] Work Phone: 04-25-2011 12:52-0400 BP Diastolic 82 mm[Hg] Renita Richardson RN [facility] Work Phone: Comment on above: Patient Position: Sitting; Cuff Location : Left Arm; Cuff Size: Large 04-25-2011 12:52-0400 BP Systolic 148 mm[Hg] Renita Richardson RN [facility] Work Phone: Comment on above: Patient Position: Sitting; Cuff Location : Left Arm; Cuff Size: Large 04-25-2011 12:52-0400 BSA (Body Surface Area) 1.67 m2 Renita Richardson RN [facility] Work Phone: 04-25-2011 12:52-0400 Height 162.56 cm Renita Richardson RN [facility] Work Phone: 04-25-2011 12:52-0400 Pulse (Heart Rate) 72 /min Renita Richardson RN [facility] Work Phone: Comment on above: Pattern: Regular 04-25-2011 12:52-0400 Respiratory Rate 20 /min Renita Richardson RN [facility] Work Phone: Comment on above: Pattern: Unlabored 04-25-2011 12:52-0400 Weight 62.23 kg Sade Matthews [facility] Work Phone: 05-26-2009 13:26-0400 BMI (Body Mass Index) 22.83 kg/m2 Renita Richardson RN [facility] Work Phone: 05-26-2009 13:26-0400 Body weight 60.33 kg Renita Richardson RN [facility] Work Phone: 05-26-2009 13:26-0400 BP Diastolic 82 mm[Hg] Renita Richardson RN [facility] Work Phone: Comment on above: Patient Position: Sitting; Cuff Location : Left Arm; Cuff Size: Large 05-26-2009 13:26-0400 BP Systolic 122 mm[Hg] Renita Richardson RN [facility] Work Phone: Comment on above: Patient Position: Sitting; Cuff Location : Left Arm; Cuff Size: Large 05-26-2009 13:26-0400 BSA (Body Surface Area) 1.64 m2 Renita Richardson RN [facility] Work Phone: 05-26-2009 13:26-0400 Head Circumference 0 cm Sade Matthews [facility] Work Phone: 05-26-2009 13:26-0400 Head Occipital-frontal circumference 0 cm Renita Richardson RN [facility]; [facility] Work Phone: 05-26-2009 13:26-0400 Height 162.56 cm Renita Richardson RN [facility] Work Phone: 05-26-2009 13:26-0400 Pulse (Heart Rate) 64 /min Renita Richardson RN [facility] Work Phone: Comment on above: Pattern: Regular 05-26-2009 13:26-0400 Respiratory Rate 20 /min Renita Richardson RN [facility] Work Phone: Comment on above: Pattern: Unlabored 05-26-2009 13:26-0400 Weight 60.33 kg Sade Matthews [facility] Work Phone: 03-31-2008 14:38-0400 BMI (Body Mass Index) 22.34 kg/m2 Renita Richardson RN [facility] Work Phone: 03-31-2008 14:38-0400 Body weight 59.02 kg Renita Richardson RN [facility] Work Phone: 03-31-2008 14:38-0400 BP Diastolic 60 mm[Hg] Renita Richardson RN [facility] Work Phone: Comment on above: Patient Position: Sitting; Cuff Location : Left Arm; Cuff Size: Standard 03-31-2008 14:38-0400 BP Systolic 122 mm[Hg] Renita Richardson RN [facility] Work Phone: Comment on above: Patient Position: Sitting; Cuff Location : Left Arm; Cuff Size: Standard 03-31-2008 14:38-0400 BSA (Body Surface Area) 1.63 m2 Renita Richardson RN [facility] Work Phone: 03-31-2008 14:38-0400 Head Circumference 0 cm Sade Leeson [facility] Work Phone: 03-31-2008 14:38-0400 Head Occipital-frontal circumference 0 cm Renita Richardson RN [facility]; [facility] Work Phone: 03-31-2008 14:38-0400 Height 162.56 cm Renita Richardson RN [facility] Work Phone: 03-31-2008 14:38-0400 Pulse (Heart Rate) 60 /min Renita Richardson RN [facility] Work Phone: Comment on above: Pattern: Regular 03-31-2008 14:38-0400 Respiratory Rate 20 /min Renita Richardosn RN [facility] Work Phone: Comment on above: Pattern: Unlabored 03-31-2008 14:38-0400 Weight 59.02 kg Saed Matthews [facility] Work Phone: 10-03-2006 11:08-0500 Body Temperature 98.6 [degF] ADRIANA Andrews LPN [facility] Work Phone: Comment on above: Method: Oral 10-03-2006 11:08-0500 Body weight 63.5 kg ADRIANA Andrews LPN [facility] Work Phone: 10-03-2006 11:08-0500 BP Diastolic 76 mm[Hg] ADRIANA Andrews LPN [facility] Work Phone: Comment on above: Patient Position: Sitting; Cuff Location : Left Arm; Cuff Size: Standard 10-03-2006 11:08-0500 BP Systolic 104 mm[Hg] ADRIANA Andrews LPN [facility] Work Phone: Comment on above: Patient Position: Sitting; Cuff Location : Left Arm; Cuff Size: Standard 10-03-2006 11:08-0500 Head Circumference 0 cm Sade Matthews [facility] Work Phone: 10-03-2006 11:08-0500 Head Occipital-frontal circumference 0 cm ADRIANA Andrews LPN [facility]; [facility] Work Phone: 10-03-2006 11:08-0500 Height 0 cm ADRIANA Andrews LPN [facility] Work Phone: 10-03-2006 11:08-0500 Pulse (Heart Rate) 70 /min ADRIANA Andrews LPN [facility] Work Phone: Comment on above: Pattern: Regular 10-03-2006 11:08-0500 Respiratory Rate 20 /min ADRIANA Andrews [facility] Work Phone: Comment on above: Pattern: Unlabored 10-03-2006 11:08-0500 Weight 63.5 kg Sade Matthews [facility] Work Phone: 09-15-2006 13:18-0500 BMI (Body Mass Index) 24.06 kg/m2 Sade Matthews [facility] Work Phone: 09-15-2006 13:18-0500 Body Temperature 97.5 [degF] Sade Matthews [facility] Work Phone: Comment on above: Method: Oral 09-15-2006 13:18-0500 Body weight 63.59 kg Sade Matthews [facility] Work Phone: 09-15-2006 13:18-0500 BP Diastolic 84 mm[Hg] Sade Matthews [facility] Work Phone: Comment on above: Patient Position: Sitting; Cuff Location : Left Arm; Cuff Size: Standard 09-15-2006 13:18-0500 BP Systolic 160 mm[Hg] Sade Matthews [facility] Work Phone: Comment on above: Patient Position: Sitting; Cuff Location : Left Arm; Cuff Size: Standard 09-15-2006 13:18-0500 BSA (Body Surface Area) 1.68 m2 Sade Matthews [facility] Work Phone: 09-15-2006 13:18-0500 Head Circumference 0 cm Sade Matthews [facility] Work Phone: 09-15-2006 13:18-0500 Head Occipital-frontal circumference 0 cm Sade Matthews DO Work Phone: [facility]; [facility] Work Phone: 09-15-2006 13:18-0500 Height 162.56 cm Sade Matthews [facility] Work Phone: 09-15-2006 13:18-0500 Pulse (Heart Rate) 72 /min Sade Matthews [facility] Work Phone: Comment on above: Pattern: Regular 09-15-2006 13:18-0500 Respiratory Rate 13 /min Sade Matthews [facility] Work Phone: Comment on above: Pattern: Unlabored 09-15-2006 13:18-0500 Weight 63.59 kg Sade Matthews [facility] Work Phone: Encounters Encounter Date Encounter Type Care Provider Facility Start: 08-19-2025 ambulatory Allen Morin Facility:[facility] Start: 07-15-2025 End: 07-15-[address] Danette Brooks MD -Medical Out Work Phone: Start: 07-15-2025 End: 07-15-[address] Allen Morin MD Work Phone: -Medical Out Start: 06-15-2025 End: 06-15-[address] Danette Brooks MD -Medical Out Work Phone: Start: 06-15-2025 End: 06-15-[address] Allen Morin MD Work Phone: -Medical Out Start: 05-18-2025 End: 05-18-[address] Danette Brooks MD -Medical Out Work Phone: Start: 05-18-2025 End: 05-18-[address] Allen Morin MD Work Phone: -Medical Out Start: 05-13-2025 End: 05-13-[address] Allen Morin MD Work Phone: -Laboratory Agency Start: 05-13-2025 End: 05-13-[address] Danette Brooks MD -Laboratory Agency Work Phone: Start: 05-13-2025 End: 05-13-2025 ambulatory Danette Brooks Facility:[facility] Start: 04-14-2025 End: 04-14-[address] Danette Brooks MD -Medical Out Work Phone: Start: 04-14-2025 End: 04-14-[address] Allen Morin MD Work Phone: -Medical Out Start: 03-17-2025 End: 03-17-[address] Danette Brooks MD -Medical Out Work Phone: Start: 03-17-2025 End: 03-17-[address] Allen Morin MD Work Phone: [facility] Work Phone: Start: 02-17-2025 End: 02-17-[address] Danette Brooks MD -Medical Out Work Phone: Start: 02-17-2025 End: 02-17-[address] Allen Morin MD Work Phone: [facility] Work Phone: Start: 01-20-2025 End: 01-20-[address] Danette Brooks MD -Medical Out Work Phone: Start: 01-20-2025 End: 01-20-[address] Allen Morin MD Work Phone: [facility] Work Phone: Start: 12-23-2024 End: 12-23-[address] Danette Brooks MD -Medical Out Work Phone: Start: 12-23-2024 End: 12-23-[address] Allen Morin MD Work Phone: [facility] Work Phone: Start: 12-08-2024 End: 12-08-[address] Allen Morin MD Work Phone: [facility] Work Phone: Start: 12-08-2024 End: 12-08-[address] Allen Morin MD -Laboratory, Phy Office 3rd Flr Start: 12-08-2024 End: 12-08-2024 ambulatory Allen Morin Facility:[facility] Start: 11-25-2024 End: 11-25-[address] Danette Brooks MD -Medical Out Work Phone: Start: 11-25-2024 End: 11-25-[address] [facility] Facility:[facility] Start: 10-28-2024 End: 10-28-[address] Danette Brooks MD -Medical Out Work Phone: Start: 10-28-2024 End: 10-28-[address] [facility] Facility:[facility] Start: 09-30-2024 End: 09-30-[address] Danette Boroks MD -Medical Out Work Phone: Start: 09-30-2024 End: 09-30-[address] [facility] Facility:[facility] Start: 09-02-2024 End: 09-02-[address] Danette Brooks MD -Medical Out Work Phone: Start: 09-02-2024 End: 09-02-[address] [facility] Facility:[facility] Start: 02-04-2024 End: 02-04-2024 ambulatory [facility] Work Phone: Start: 02-04-2024 End: 02-04-2024 Patient encounter procedure [facility]-Medical Out Work Phone: Start: 01-05-2024 End: 01-05-2024 ambulatory [facility] Work Phone: Start: 01-05-2024 End: 01-05-2024 Patient encounter procedure [facility]-Medical Out Work Phone: Start: 11-28-2023 End: 01-06-[address] AMADOR GLORIA MD Facility: Start: 11-25-2023 End: 11-26-2023 Evaluation and management of inpatient DR AMADOR GLORIA MD Facility:B Start: 11-25-2023 End: 11-26-2023 Evaluation and management of inpatient DR AMADOR GLORIA MD [facility] Start: 11-20-2023 End: 11-20-2023 ambulatory [facility] Work Phone: Start: 11-20-2023 End: 11-20-2023 Patient encounter procedure [facility]-Laboratory Work Phone: Start: 11-18-2023 End: 11-19-2023 ambulatory JAGDEEP ARZOLA-C Facility:B Start: 11-18-2023 End: 11-18-2023 Patient encounter procedure JAGDEEP Howard YASMIN PA-C [facility] Start: 11-04-2023 End: 11-05-[address] AMADOR GLORIA MD Facility:[facility] Start: 09-22-2023 End: 09-22-2023 ambulatory [facility] Work Phone: Start: 09-22-2023 End: 09-22-2023 Patient encounter procedure [facility]-Laboratory, Phy Office 3rd Flr Start: 09-18-2023 End: 09-18-2023 ambulatory [facility] Work Phone: Start: 09-18-2023 End: 09-18-2023 Patient encounter procedure [facility]-Medical Out Work Phone: Start: 08-14-2023 End: 08-14-2023 ambulatory [facility] Work Phone: Start: 08-14-2023 End: 08-14-2023 Patient encounter procedure [facility]-Medical Out Work Phone: Start: 07-17-2023 End: 07-17-2023 Patient encounter procedure [facility]-Medical Out Work Phone: Start: 06-19-2023 End: 06-19-2023 ambulatory [facility] Work Phone: Start: 06-19-2023 End: 06-19-2023 Patient encounter procedure [facility]-Medical Out Work Phone: Start: 05-15-2023 End: 05-15-2023 Patient encounter procedure [facility]-Medical Out Work Phone: Start: 04-17-2023 End: 04-17-2023 ambulatory [facility] Work Phone: Start: 04-17-2023 End: 04-17-2023 Patient encounter procedure [facility]-Medical Out Work Phone: Start: 03-13-2023 End: 03-13-2023 ambulatory [facility] Work Phone: Start: 03-13-2023 End: 03-13-2023 Patient encounter procedure [facility]-Medical Out Start: 02-24-2023 End: 02-24-2023 Patient encounter procedure [facility] Start: 02-13-2023 End: 02-13-2023 ambulatory [facility] Work Phone: Start: 02-13-2023 End: 02-13-2023 Patient encounter procedure [facility]-Medical Out Start: 01-16-2023 End: 01-16-2023 ambulatory [facility] Work Phone: Start: 01-16-2023 End: 01-16-2023 Patient encounter procedure [facility]-Medical Out Start: 12-12-2022 End: 12-12-2022 ambulatory [facility] Work Phone: Start: 12-12-2022 End: 12-12-2022 Patient encounter procedure [facility]-Medical Out Start: 11-14-2022 End: 11-14-2022 ambulatory [facility] Work Phone: Start: 11-14-2022 End: 11-14-2022 Patient encounter procedure [facility]-Medical Out Start: 10-17-2022 End: 10-17-2022 ambulatory [facility] Work Phone: Start: 10-17-2022 End: 10-17-2022 Patient encounter procedure [facility]-Medical Out Start: 09-12-2022 End: 09-12-2022 Patient encounter procedure [facility]-Medical Out Start: 08-13-2022 End: 08-13-2022 ambulatory [facility] Work Phone: Start: 08-13-2022 End: 08-13-2022 Patient encounter procedure [facility]-Medical Out Start: 07-15-2022 End: 07-15-[address] Sade Matthews Work Phone: [facility] Work Phone: Start: 07-15-2022 End: 07-15-[address] Sade Matthews Work Phone: [facility]-Medical Out Start: 06-14-2022 End: 06-14-[address] Sade Matthews Work Phone: [facility] Work Phone: Start: 06-14-2022 End: 06-14-[address] Sade Matthews Work Phone: [facility]-Medical Out Start: 05-17-2022 End: 05-17-[address] Sade Matthews Work Phone: [facility]-Medical Out Start: 04-12-2022 End: 04-12-[address] Sade Matthews Work Phone: [facility]-Medical Out Start: 03-22-2022 End: 03-22-[address] Sade Matthews Work Phone: [facility] Start: 03-15-2022 End: 03-15-2022 Patient encounter procedure [facility]-Medical Out Start: 02-15-2022 End: 02-15-2022 Patient encounter procedure [facility]-Medical Out Start: 01-11-2022 End: 01-11-2022 Patient encounter procedure [facility]-Medical Out Start: 12-13-2021 End: 12-13-2021 Patient encounter procedure [facility]-Medical Out Start: 11-19-2021 End: 11-19-2021 Emergency department patient visit [facility]-Emergency Department Start: 11-15-2021 End: 11-15-2021 Patient encounter procedure [facility]-Medical Out Start: 10-18-2021 End: 10-18-2021 Patient encounter procedure [facility]-Medical Out Start: 04-05-2021 End: 04-05-2021 Office outpatient visit 10 minutes Sade Leeson DO Work Phone: [facility] Start: 03-30-2021 End: 03-30-2021 Office outpatient visit 10 minutes Sade Leeson DO Work Phone: [facility] Start: 03-30-2021 Review Sade Leeso n DO Work Phone: [facility] Start: 03-07-2021 End: 03-07-2021 Prescription Refill Sade Cassie DO Work Phone: [facility] Start: 10-25-2020 End: 10-25-2020 Office outpatient visit 15 minutes Sade Leeson DO Work Phone: [facility] Start: 10-18-2020 End: 10-18-2020 Office outpatient visit 15 minutes Sade Matthews [facility] Start: 08-30-2020 End: 08-30-2020 Annotation/Addendum Sade Matthews [facility] Start: 08-20-2019 End: 08-20-2019 Patient encounter procedure Sade Leeson DO Work Phone: [facility] Start: 08-20-2019 End: 08-20-2019 Periodic preventive med est patient 65yrs& older Sade Matthews [facility] Start: 08-20-2019 Review Sade Matthews [facility] Start: 08-11-2018 End: 08-11-2018 Phone Encounter Sade Matthews [facility] Start: 07-17-2018 End: 07-17-2018 Patient encounter procedure Sade Matthews DO Work Phone: [facility] Start: 07-17-2018 End: 07-17-2018 Periodic preventive med est patient 65yrs& older Sade Matthews [facility] Start: 06-04-2017 End: 06-04-2017 Office outpatient visit 25 minutes Sade Matthews [facility] Start: 08-12-2016 End: 08-12-2016 Phone Encounter Sade Matthews [facility] Start: 06-07-2016 End: 06-07-2016 Office outpatient visit 25 minutes Sade Matthews [facility] Start: 06-07-2015 End: 06-07-2015 Patient encounter procedure Sade Matthews DO Work Phone: [facility] Start: 06-07-2015 End: 06-07-2015 Periodic preventive med est patient 65yrs& older Sade Matthews [facility] Start: 05-25-2015 End: 05-25-2015 Phone Encounter Sade Matthews [facility] Start: 05-17-2015 End: 05-17-2015 Office outpatient visit 40 minutes Sade Matthews [facility] Start: 04-26-2015 End: 04-26-2015 Phone Encounter Sade Matthews [facility] Start: 10-27-2014 End: 10-27-2014 Phone Encounter Sade Matthews [facility] Start: 03-29-2013 End: 03-29-2013 Patient encounter Sade Matthews [facility] Start: 04-25-2011 End: 04-25-2011 Patient encounter Sade Matthews [facility] Start: 05-26-2009 End: 05-26-2009 Patient encounter Sade Matthews [facility] Start: 03-31-2008 End: 03-31-2008 Patient encounter Sade Matthews [facility] Start: 09-02-2007 End: 09-02-2007 Historical Summary Sadecarlene Matthews [facility] Start: 10-03-2006 End: 10-03-2006 Office outpatient visit 15 minutes Sadecarlene Matthews [facility] Start: 09-15-2006 End: 09-15-2006 Patient encounter Sade Matthews [facility] Start: 09-11-2006 End: 09-11-2006 Historical Summary Sade Matthews [facility] Patient encounter procedure [facility]; [facility] Work Phone: End: 03-29-2009 Patient encounter procedure Jelly Horan [facility]; [facility] Work Phone: Patient encounter procedure [facility]; [facility] Work Phone: Patient encounter procedure [facility]; [facility] Work Phone: Procedures Date Procedure Procedure Detail Performing Clinician Start: 01-20-[address] Allen Morin MD Work Phone: Start: 10-28-[address] Allen Morin MD Work Phone: Start: 10-28-2024 Measurement of renal function Dr. Allen Morin MD Work Phone: Comment on above: GFR Calc Start: 11-25-2023 Total replacement of hip DR AMADOR GLORIA MD Start: 02-24-2023 Plain x-ray of pelvi s and lower extremity Start: 03-22-2022 End: 03-22-2022 Urgent Care Visit Report Procedure Note: See Note; NOTES: [facility] [address] [place] [address] OFFICE VISIT Date of Service: 03/22/22 MR#: [id number] Acct: [id number] Name: TRES RAMIRES Rep #: [id number] 2 : 1940 Provider: NESS Alexander Age/Sex: 82/F Location: [email or web address] Status: Signed Intake Vital Signs 03/22/22 11:53 Height 5 ft 3.5 in Weight: 128 lb BMI 22.3 BP 160/68 H Blood Pressure Location Lt brachial Position Sitting Respiration 16 Pulse 76 Pulse Source Monitor Temp 98.1 F Temp Source Temporal Pulse Oximetry (%) 97 Oxygen Delivery Method room air Intake Visit Reasons: ANTIGEN COVID FOR TRAVEL Allergies No Known Allergies Allergy (Verified 03/22/22 11:54) Medications methotrexate sodium 2.5 mg PO QWEEK 07/23/13 [History Confirmed 03/22/22] lactobacillus combination no.4 [Probiotic] 1 ea PO DAILY 04/01/14 [History Confirmed 03/22/22] ramipril [Altace] 10 mg PO BID 10/11/15 [History Confirmed 03/22/22] atorvastatin 10 mg PO QHS 10/03/16 [History Confirmed 03/22/22] hydralazine 25 mg PO BID 04/12/21 [History Confirmed 03/22/22] metoprolol succinate 100 mg tablet,extended release 24 hr 100 mg PO DAILY 03/22/22 [History Confirmed 03/22/22] PFSH Medical History High cholesterol Hypertension Rheumatoid arthritis Social History Smoking Status: Never smoker HPI HPI Details: TRES RAMIRES, is a 82 F who presents to the office today for COVID test prior to travel. Patient denies any current symptoms. ROS Const Constitutional: No other (6 system ROS completed with pertinent findings in the HPI otherwise normal.) Exam Const General: cooperative and healthy appearing Resp Effort Inspection: normal respiratory effort Cardio Rate: regular rate Skin General: no rashes or lesions noted Neuro General: patient alert Psych Appearance: grossly normal Mental Status: mental status grossly normal Results POC SARS AG POC SARS AG Negative Last Edit by Hayde Espinoza RN on 03/22/22 12:15 Coding Level of Care Code Off vis,new,level 2 Diagnoses Encounter for screening for other viral diseases Z11.59 Assessment and Plan Assessment and Plan (1) Encounter for screening for other viral diseases: Status: Acute Plan - NESS Gan: Patient tested negative for COVID in the office today. Patient verbalized understanding and agreement with all the above. Plan Details Other Orders: Orders: POC Rapid SARS Antigen Today Z11.52 03/22/22 1253 <Electronically signed by Jaya ARZOLA> Date Jaya ARZOLA Cosigner Signature: Date (if applicable) CC: Sade Matthews DO Work Phone: Start: 11-19-2021 End: 11-19-2021 Emergency Department Summary Comments: See Note; NOTES: [facility] Medical Records Department [address] [place] [address] [place] [address] Emergency Department Summary 11/19/21 MR#: [id number] Acct: [id number] Name: TRES RAMIRES Rep #: [id number] : 1940 81 From: Fara Armstrong MD PCP: Dr. Sade Matthews, DO Status:DEP ER Location: ED HPI History of Present Illness Chief Complaint: Syncope Informant: patient Onset/Context/Timing Onset: Today Narrative Narrative: Patient presents for evaluation as an [employer]. 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 Apparently bystanders noted a blank stare on her face and lowered her to the ground. Patient denies chest pain or palpitations. She did eat this morning. She felt well up to the point of this episode and feels well currently. [facility] Medical History High cholesterol Hypertension Rheumatoid arthritis Home Medications methotrexate sodium 2.5 mg PO QWEEK 07/23/13 [History Last Taken Unknown] metoprolol succinate 100 mg PO DAILY 07/23/13 [History Last Taken Unknown] lactobacillus combination no.4 [Probiotic] 1 ea PO DAILY 04/01/14 [History Last Taken Unknown] ramipril [Altace] 10 mg PO BID 10/11/15 [History Last Taken Unknown] omega-3 fatty acids [Fish Oil] 500 mg PO DAILY 11/13/15 [History Last Taken Unknown] atorvastatin 10 mg PO QHS 10/03/16 [History Last Taken Unknown] hydralazine 25 mg PO DAILY 04/12/21 [History Last Taken Unknown] Allergy/AdvReac Type Severity Reaction Status Date / Time No Known Allergies Allergy Verified 11/19/21 11:42 Social History Smoking Status: Never smoker ROS ROS ED Constitutional Constitutional ED: Denies chills or fever(s) Eyes Eyes: Denies change in vision ENT ENT ED: Denies sore throat Cardiovascular Cardiovascular: Denies chest pain, palpitations or racing heartbeat Respiratory/Chest Respiratory/Chest: Denies cough or dyspnea Gastrointestinal Gastrointestinal: Denies abdominal pain, diarrhea, nausea or vomiting Genitourinary Genitourinary ED: Denies dysuria Musculoskeletal Musculoskeletal: Denies back pain Integumentary Denies rash Neurologic Neurologic: Denies headache(s) or weakness Allergic/Immunologic Allergic/Immunologic ED: Denies urticaria EXAM Physical Exam Const Vital Signs: 11/19/21 11:42 11/19/21 12:13 Temperature 97.4 F L Temperature Source Temporal Pulse Rate 56 L Respiratory Rate 16 Respiratory Pattern Irregular Blood Pressure 142/68 H Blood Pressure Mean 92 Pulse Ox 96 Oxygen Delivery Method Room Air Positive well nourished and well developed General Appearance ED: well developed HEENT Reports moist mucous membranes Eyes PERRL and EOMs intact bilaterally Neck supple Chest Wall inspection of chest normal and palpation of chest normal Resp normal respiratory effort and clear to auscultation bilaterally Cardio Rate: bradycardia GI normal to inspection, nondistended, normoactive bowel sounds and non-tender Palpation: soft Extremity normal to inspection Neuro oriented x3 and no sensory deficits noted Sensorium / Orientation: alert Motor Exam: strength 5/5 throughout Psych mental status grossly normal Skin no rashes or lesions noted MDM MDM MDM Narrative Medical decision making narrative: Patient placed on cardiac rehabilitation specialist. Lab work and EKG obtained. Patient given 500 cc IV fluids. Lab Data Attestation: I reviewed the patient's lab results. Labs: Laboratory Results - last 24 hr 11/19/21 11/19/21 11/19/21 11:28 12:22 12:22 WBC 8.8 RBC 3.82 L Hgb 12.5 Hct 36.7 L MCV 96.1 MCH 32.7 H MCHC 34.1 RDW Std Deviation 49.2 H RDW Coeff of Jb 14.2 Plt Count 304 MPV 9.1 Immature Gran % (Auto) 0.300 Neut % (Auto) 69.9 Lymph % (Auto) 17.9 L [place] % (Auto) 10.2 H Eos % (Auto) 1.2 Baso % (Auto) 0.5 Absolute Neuts (auto) 6.2 Absolute Lymphs (auto) 1.58 Nucleated RBC % 0 Sodium 136 Potassium 3.9 Chloride 104 Carbon Dioxide 27.0 Anion Gap 5 BUN 13 Creatinine 0.68 Estim Creat Clear Calc 39.39 Est GFR (MDRD) Af Amer 107 Est GFR (MDRD) Non-Af 88 BUN/Creatinine Ratio 19.0 Glucose 93 Calcium 9.0 Troponin I High Sens 6 POC Glucose 85 EKG Initial EKG: Attestation: I personally reviewed and interpreted this EKG as follows: Interpretation: Sinus Bradycardia (Sinus bradycardia 58 bpm. First-degree AV block. No acute ischemia.) Treatment and Re-Evaluation Comments:: Patient been stable throughout her ED stay. I did discuss test results with her. At this time I have no etiology for her syncopal episode. I discussed the possibility of observation for cardiac monitoring. She feels well and does not want to stay in the hospital. Return instructions are discussed. Discharge Plan Triage Chief Complaint: Syncope ED Provider: Fara Armstrong Dx/Rx/DC Orders Clinical Impression: Syncope Instructions: ED Fainting, Uncertain Cause Prescriptions: No Action methotrexate sodium 2.5 MG tablet 2.5 mg PO QWEEK RF: 0 metoprolol succinate 100 MG tablet 100 mg PO DAILY RF: 0 Probiotic 1 EACH capsule 1 ea PO DAILY RF: 0 ramipril [Altace] 10 MG capsule 10 mg PO BID RF: 0 Fish Oil 500 MG capsule 500 mg PO DAILY RF: 0 atorvastatin 10 MG tablet 10 mg PO QHS RF: 0 hydralazine 25 mg Tablet 25 mg PO DAILY RF: 0 Primary Care Provider: Sade Matthews Referrals: Sade Matthews DO [Primary Care Provider] - 5-7 Days Disposition Disposition: Home, Self Care What to do if you have Problems For any increased pain, shortness of breath, bleeding, nausea or vomiting, chest pain, or any unexpected problems, contact your Primary Care Provider. Call [facility] ([phone]) or report to the closest Emergency Room. Call 911 if necessary. 11/19/21 9832 <Electronically signed by Fara Armstrong MD> Cosigner Signature (if applicable): CC: Dr. Sade Matthews DO Signed Sade Matthews DO Work Phone: Start: 11-19-2021 End: 11-20-2021 12 Lead EKG Comments: See Note; NOTES: [facility] Cardiovascular Services [address] [place] [address] 12 Lead EKG 11/19/21 1158 MR#: [id number] Acct: [id number] Name: TRES RAMIRES Rep #: [id number] : 1940 81 From: Cosmo Jain MD Attending Dr: Status: DEP ER Ordering Dr: Fara Armstrong MD Date: 11/19/21 Location: ED Sex: F C Admitted: Test Reason : SYNCOPE Blood Pressure : / mmHG Vent. Rate : 058 BPM Atrial Rate : 058 BPM P-R Int : 282 ms QRS Dur : 082 ms QT Int : 406 ms P-R-T Axes : 057 028 042 degrees QTc Int : 398 ms Sinus bradycardia with 1st degree A-V block Otherwise normal ECG Confirmed by RAMONITA RILEY, COSMO ([id number]), subeditor BARBIE ORTEGA ([id number]) on 11/20/2021 11:33:35 AM Referred By: ROSEMARIE/JENNA Confirmed By:COSMO JAIN MD 11/20/21 1133 Date Cosmo Jain MD CC: Dr. Fara Armstrong MD; Dr. Sade Matthews DO Signed Sade Matthews DO Work Phone: Start: 05-10-2021 End: 05-10-2021 Renal Artery Duplex Ultrasound Comments: See Note; NOTES: [facility] Cardiovascular Services [address] [place] [address] Renal Artery Duplex Ultrasound 05/10/21 0814 MR#: [id number] Acct: [id number] Name: TRES RAMIRES Rep #: [id number] : 1940 81 From: Abiodun Gray MD Attending Dr: Dr. Yari Guardado, DO Status: REG CLI Ordering Dr: Yari Guardado DO Date: 05/10/21 Location: CVS Sex: F C Admitted: Reason For Study: Hypertensive disorder Right Renal Artery Left Renal Artery Right renal artery ostium Left renal artery ostium 100.1/18.9 119.9/25.5 RSV/EDV. PSV/EDV. Right renal artery proximal Left renal artery proximal PSV/EDV 150.6/36.4 PSV/EDV. 92.4/21.2 . Right renal artery mid 141.8/27.7 Left renal artery mid 90.6/21.2 PSV/EDV. PSV/EDV . Right renal artery distal Left renal artery distal 68.3/17.9 100.3/23.6 PSV/EDV. PSV/EDV. Right RAR 1.81. Left RAR 1.20. Right Renal Parenchyma Left Renal Parenchyma Upper Pole Medula 23.9/7.4 PSV/EDV. Left upper pole medulla 29.4/7.2 Right upper pole medulla EDR 0.31 . PSV/EDV . Right upper pole medulla R.I. Left upper pole medulla EDR 0.24 . 0.69 . Left upper pole medulla R.I. 0.76 . Upper Ernesto Cortx 16.1/5.2 PSV/EDV. UP Cortex 12.9/3.6 PSV/EDV. Right upper pole cortex EDR 0.32 . Left upper pole cortex EDR 0.28 . Right upper pole cortex R.I. 0.68 . Left upper pole cortex R.I. 0.72 . Right lower Pole medulla 20.9/6.5 Left lower Pole medulla 20.7/6.1 PSV/EDV . PSV/EDV . Right lower pole medulla EDR 0.31 . Left lower pole medulla EDR 0.30 . Right lower pole medulla R.I. Left lower pole medulla R.I. 0.70 . 0.69 . Lower Pole Cortx 16.8/5.1 PSV/EDV. Lower Pole Cortex 13/3.9 PSV/EDV. Left lower pole cortex EDR 0.30 . Right lower pole cortex EDR 0.30 . Left lower pole cortex R.I. 0.70 . Right lower pole cortex R.I. 0.70 . Left Renal Hilar Right Renal Hilar LT Hilar avg 70/17 PSV/EDV . Right Hilar avg 50.1/13.6 PSV/EDV. Left hilar acceleration time 60 Right hilar acceleration time 40 m/sec. m/sec. Left Renal Dimensions Right Renal Dimensions Left kidney size 8.99 cm . Right kidney size 9.52 cm . Left cortical dimension 1.05 cm . Right cortical dimension 0.93 cm . Aorta Proximal abdominal aorta 1.61 x 1.59 cm . Proximal abdominal aorta peak systolic velocity is 83.3 cm/sec . Distal abdominal aorta 1.53 x 1.53 cm . Distal abdominal aorta peak systolic velocity is 83 cm/sec . VL/Renal Artery Duplex Ultrasound Interpretation Summary Maximum aortic diameter approximately 1.61 x 1.59 cm with normal velocity flow Less than 60% stenosis bilateral renal arteries Right renal length 9.52 cm Left renal length 8.99 cm _ Ordering Physician: Yari Guardado Referring Physician: Sade Matthews M.D. Performed By: Bekah Ramos RVT and Student 05/10/21948 Date Abiodun Gray MD CC: Dr. Yari Guardado DO; Dr. Sade Matthews DO Date Dictated: 05/10/21813 Date Transcribed: 05/10/21948 Manager Retention: Signed Sade Matthews DO Work Phone: Start: 10-05-2020 End: 10-05-2020 Dexa Bone Density Study Comments: See Note; NOTES: [facility] Imaging Services [address] [place] [address] Dexa Bone Density Study MR#: [id number] Acct: [id number] Name: TRES RAMIRES Rep #: [id number] : 1940 F 80 From: Bartloo brown MD PCP: Dr. 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 COMPARISON: Comparison is made with prior examination dated 09/10/2018. FINDINGS: Lumbar Spine (L1-L4): g/cm2 (0.968) / T-score (-1.9) / Z-score (-0.1) Findings are suggestive of osteopenia with a moderate fracture risk. Left Femur Total: g/cm2 (0.669) / T-score (-2.7) / Z-score (-0.8) Left Femoral Neck: g/cm2 (0.804) / T-score (-1.7) / Z-score (0.4) Right Femur Total: g/cm2 (0.698) / T-score (-2.5) / Z-score (-0.5) Right Femoral Neck: g/cm2 (0.944) / T-score (-0.7) / Z-score (1.4) The T-Scores on the most recent prior examination were: Lumbar Spine (L1-L4): There has been worsening of bone density since the previous examination. Left Femur Total: which represents a worsening of 1.5%. Right Femur Total: which represents a worsening of 2.6%. BD/Dexa Bone Density Study IMPRESSION: The patient [...] 1. NIH Osteoporosis and Related Bone Diseases www osteo.org 2. International Society for Clinical Densitometry www iscd.org 3. National Osteoporosis Foundation www nof.org Electronically Signed: Bartolo Knight, at 13:57 EST , Service support , CC: Dr. Sade Matthews, Manager Retention: Signed Sade Matthesw Work Phone: Start: 10-05-2020 End: 11-14-2020 SCREEN MAMM (CAD) W/DRISS BILAT Comments: See Note; NOTES: [facility] Imaging Services [address] [place] [address] SCREEN MAMM (CAD) W/DRISS BILAT MR#: [id number] Acct: [id number] Name: TRES RAMIRES Rep #: [id number] : 1940 F 80 From: Bartolo brown MD PCP: Dr. Sade Matthews, Status: [facility] Study: SCREEN MAMM (CAD) W/DRISS BILAT Date of Exam: 12/06/19 Exam# [id number] Ordering Dr: Sade Matthews DO MAMMOGRAPHY - BILATERAL SCREENING REASON FOR EXAM: Female, 80 years old. Routine annual screening examination. PERTINENT HISTORY: Non-contributory. TECHNIQUE: Digital bilateral breast driss (3D mammographic acquisition) in the CC and MLO projections. 2-D mediolateral oblique (MLO) and craniocaudad (CC) views of both breasts were obtained. CAD: Full Field Digital Mammography with Computer Added Detection was performed. COMPARISON: Comparison is made with prior study dated 09/13/2019 and 09/10/2018. FINDINGS: Breast Composition: There are scattered areas of fibroglandular density. There are no dominant masses or suspicious calcifications. No other significant abnormalities are identified. There has been no significant change since the prior study. BI/SCREEN MAMM (CAD) W/DRISS BILAT IMPRESSION: Stable bilateral screening mammogram. Yearly follow-up mammogram recommended. (A) ASSESSMENT CATEGORY: BIRADS Category 1: Negative. A letter regarding these results will be sent to the patient by the facility within 30 days. Approximately 10% of breast cancers are not detected by mammography. A normal mammogram should not delay biopsy of a clinically suspicious abnormality. [id number] Electronically Signed: Bartolo Knight, at 13:50 EST , Service support , CC: Dr. Sade Matthews DO Manager Retention: Signed Sade Matthews Work Phone: Start: 02-17-2020 End: 02-17-2020 Venous Duplex US, Unilateral Comments: See Note; NOTES: [facility] Cardiovascular Services [address] [place] [address] Venous Duplex US, Unilateral 02/17/20 0907 MR#: [id number] Acct: [id number] Name: TRES RAMIRES Rep #: [id number] : 1940 79 From: Lucas Bello MD Attending Dr: Danette Brooks MD Status: REG CLI Ordering Dr: Danette Brooks MD Date: 02/17/20 Location: CVS Sex: F C Admitted: Reason For Study: calf pain RIGHT GSV is normal. CFV is compressible, spontaneous, phasic, competent and demonstrates normal augmentation. FV is compressible, spontaneous, phasic, competent and demonstrates normal augmentation. POP V is compressible, spontaneous, phasic, competent and demonstrates normal augmentation. T/P Trunk is compressible. PTV is compressible. RT PerV is compressible. Procedure Exam performed in department. The exam was abbreviated due to the COVID 19 protocol. The exam was diagnostic. A preliminary report was called and/or faxed to Dr. Brooks. Interpretation Summary Deep veins of the right lower extremity are patent and compressible segmentally. There is no evidence of right lower extremity deep vein thrombosis. Valvular competence appears intact within the proximal deep venous system on the right . The right great saphenous vein appears patent and compressible segmentally. _ Ordering Physician: Danette Brooks Referring Physician: Sade Matthews M.D. Performed By: Rodríguez Christine, RVT 02/17/201922 Date Lucas Bello MD CC: Sade Matthews DO; Danette Brooks MD Date Dictated: 02/17/20906 Date Transcribed: 02/17/201922 Manager Retention: Signed Sade Matthews Start: 09-13-2019 End: 09-13-2019 SCREEN MAMM (CAD) W/DRISS BILAT Comments: See Note; NOTES: [facility] Imaging Services [address] [place] [address] SCREEN MAMM (CAD) W/DRISS BILAT MR#: [id number] Acct: [id number] Name: TRES RAMIRES Rep #: [id number] : 1940 F 79 From: Bartolo Knight MD PCP: Sade Matthews DO Status: REG CLI Study: SCREEN MAMM (CAD) W/DRISS BILAT Date of Exam: 09/13/19 Exam# [id number] Ordering Dr: Sade Matthews DO MAMMOGRAPHY - BILATERAL SCREENING REASON FOR EXAM: Female, 79 years old. Routine annual screening examination. PERTINENT HISTORY: Non-contributory. TECHNIQUE: Digital bilateral breast driss (3D mammographic acquisition) in the CC and MLO projections. 2-D mediolateral oblique (MLO) and craniocaudad (CC) views of both breasts were obtained. CAD: Full Field Digital Mammography with Computer Added Detection was performed. COMPARISON: Comparison is made with prior study dated September 10, 2018 and July 24, 2015. FINDINGS: Breast Composition: There are scattered areas of fibroglandular density. There are no dominant masses or suspicious calcifications. No other significant abnormalities are identified. There has been no significant change since the prior study. BI/SCREEN MAMM (CAD) W/DRISS BILAT IMPRESSION: Stable bilateral screening mammogram. Yearly follow-up mammogram recommended. (A) ASSESSMENT CATEGORY: BIRADS Category 1: Negative. A letter regarding these results will be sent to the patient by the facility within 30 days. Approximately 10% of breast cancers are not detected by mammography. A normal mammogram should not delay biopsy of a clinically suspicious abnormality. [id number] Electronically Signed: Bartolo Knight, at 15:50 EST , Service support , CC: Sade Matthews DO Manager Retention: Signed Sade Matthews Work Phone: Start: 09-10-2018 End: 09-10-2018 Dexa Bone Density Study Comments: See Note; NOTES: [facility] Imaging Services [address] [place] [address] Dexa Bone Density Study MR#: [id number] Acct: [id number] Name: TRES RAMIRES Rep #: [id number] : 1940 F 78 From: Bartolo Knight MD PCP: Sade Matthews DO Status: [facility] Study: Dexa Bone Density Study Date of Exam: 09/10/18 Exam# [id number] Ordering Dr: Sade Matthews DO STUDY: DUAL [...] Total: g/cm2 (0.679) / T-score (-2.6) / Z-score (-0.8) Left Femoral Neck: g/cm2 (0.771) / T-score (-1.9) / Z-score (0.1) Right Femur Total: g/cm2 (0.680) / T-score (-2.6) / Z-score (-0.8) Right Femoral Neck: g/cm2 (0.802) / [...] Bartolo Knight MD at 15:56 EST Tel [phone], Service support , CC: Sade Matthews DO Manager Retention: Signed Sade Matthews Work Phone: Start: 09-10-2018 End: 09-10-2018 SCREENING MAMM (CAD), BILAT Comments: See Note; NOTES: [facility] Imaging Services [address] [place] [address] SCREENING MAMM (CAD), BILAT MR#: [id number] Acct: [id number] Name: TRES RAMIRES Rep #: [id number] : 1940 F 78 From: Bartolo Knight MD PCP: Sade Matthews DO Status: REG CLI Study: SCREENING MAMM (CAD), BILAT Date of Exam: 09/10/18 Exam# [id number] Ordering Dr: Sade Matthews DO MAMMOGRAPHY - BILATERAL SCREENING REASON FOR EXAM: Female, 78 years old. Routine annual screening examination. PERTINENT HISTORY: Non-contributory. TECHNIQUE: Digital bilateral breast driss (3D mammographic acquisition) in the CC and [...] delay biopsy of a clinically suspicious abnormality. [id number] Electronically Signed: Bartolo Knight MD at 15:27 EST Tel [phone], Service support , CC: Sade Matthews DO Manager Retention: Signed Sade Matthews Work Phone: Start: 07-23-2018 End: 07-23-2018 Inital Evaluation (1) - PT Comments: See Note; NOTES: [facility] Physical Therapy [facility] [address] [place] [address]. [address] [place] [address] Fax REHABILITATION SERVICES INITIAL EVALUATION MR#: [id number] Acct: [id number] Name: TRES RAMIRES Rep #: [id number] : 1940 78 From: Lesli Andrews DPT Referring Dr.: Sade Matthews DO Status: REG RCR Insurance: MEDICARE PART A B [facility] INS DC Patient's Visit Information TRES RAMIRES is a [...] to maintain strength. Very active, volunteering at [employer]. - Objective Gait: WFL. Posture: rounded shoulders, [...] to be FAXED BACK to us at [phone] for Medicare purposes. Please let me know if there are questions or concerns regarding this plan of care. Physician Signature: Date: <Electronically signed by Lesli CRUMT> 07/23/18 1621 CC: Sade Matthews DO ELR Signed For Medicare only, by signing this I certify the plan of care. __ Physicians Signature Date Sade Cassie Start: 07-17-2018 End: 07-18-2018 Cerv Spine 2 or 3 Views Comments: See Note; NOTES: [facility] Imaging Services [address] [place] [address] Cerv Spine 2 or 3 Views MR#: [id number] Acct: [id number] Name: TRES RAMIRES Rep #: [id number] : 1940 F 78 From: Nafisa Lovett MD PCP: Sade Matthews DO Status: REG CLI Study: Cerv Spine 2 or 3 Views Date of Exam: 07/17/18 Exam# [id number] Ordering Dr: Sade Matthews DO STUDY: X-RAY [...] Service support , CC: Sade Matthews DO Manager Retention: Signed Sade Matthews Work Phone: Start: 06-11-2017 End: 06-11-2017 Knee 4 or More Views Comments: See Note; NOTES: [facility] Imaging Services [address] [place] [address] Knee 4 or More Views MR#: [id number] Acct: [id number] Name: TRES RAMIRES Rep #: [id number] : 1940 F 77 From: Rodney Patten MD PCP: Sade Matthews DO Status: REG CLI Study: Knee 4 or More Views Date of Exam: 06/11/17 Exam# [id number] Ordering Dr: Danette Broosk MD STUDY: X-RAY - RIGHT KNEE REASON FOR EXAM: Female, 77 years old. PAIN IN BOTH KNEES FOR MONTHS, WORSE IN LEFT THAN RIGHT. TECHNIQUE: 4 view(s) of the knee. COMPARISON: None. FINDINGS: There is demineralization of the visualized distal femur. There is demineralization of the tibia and fibula. Normal proximal tibiofibular articulation. Normal medial femorotibial compartment. Normal lateral femorotibial compartment. Normal patellofemoral articulation. The soft tissue structures are unremarkable. RAD/Knee 4 or More Views IMPRESSION: There is demineralization of the visualized distal femur. There is demineralization of the tibia and fibula Electronically Signed: Rodney Patten MD at 16:45 EDT , Service support , CC: Sade Matthews DO; Danette Brooks MD Manager Retention: Signed Sade Matthews Start: 07-24-2015 End: 07-24-2015 Bilat Scrn Digital AND CAD Comments: See Note; NOTES: [facility] Imaging Services [address] [place] [address] Breast Imaging Report MR#: [id number] Acct: [id number] Name: TRES RAMIRES Rep #: [id number] : 1940 F 75 From: Bartolo Knight MD PCP: Sade Matthews DO Status: REG CLI Study: Bilat Scrn Digital AND CAD Date of Exam: 07/24/15 Exam# [id number] Ordering Dr: Sade Matthews DO MAMMOGRAPHY - BILATERAL SCREENING REASON FOR EXAM: Female, 75 years old. Routine annual screening examination. PERTINENT HISTORY: Non-contributory. TECHNIQUE: Digital examination. Mediolateral oblique (MLO) and [...] Bartolo Knight MD at 16:14 EDT Tel [phone], Service support [phone], CC: Sade Matthews DO Manager Retention: Signed Sade Sanchez Phone: Bilateral cataracts (disorder) JAGDEEP ARZOLA-C Comment on above: BILATERAL Colonoscopy JAGDEEP Shah Colonoscopy Colonoscopy Sade Matthews Comment on above: 08-20-07 Colonoscopy Colonoscopy Sade Matthews Comment on above: 08-20-07 Hysterectomy JAGDEEP ARZOLA -C Tonsillectomy and adenoidectomy JAGDEEP HOFFMAN PA-C Plan of Treatment Date Care Activity Detail Author Start: 06-15-2025 Intravenous infusion THER/PROPH/DIAG IV INF [facility] Start: 05-18-2025 Iv infusion therapy/prophylaxis /dx 1st to 1 hr THER/PROPH/DIAG IV INF [facility] Start: 04-14-2025 Iv infusion therapy/prophylaxis /dx 1st to 1 hr THER/PROPH/DIAG IV INF [facility] Start: 12-23-2024 Iv infusion therapy/prophylaxis /dx 1st to 1 hr THER/PROPH/DIAG IV INF [facility] Start: 10-28-2024 Iv infusion therapy/prophylaxis /dx 1st to 1 hr THER/PROPH/DIAG IV INF [facility] Start: 01-05-2024 Iv infusion therapy/prophylaxis /dx 1st to 1 hr THER/PROPH/DIAG IV INF [facility] Start: 09-18-2023 Iv infusion therapy/prophylaxis /dx 1st to 1 hr THER/PROPH/DIAG IV INF [facility] Start: 08-14-2023 Iv infusion therapy/prophylaxis /dx 1st to 1 hr THER/PROPH/DIAG IV INF [facility] Start: 07-17-2023 Iv infusion therapy/prophylaxis /dx 1st to 1 hr THER/PROPH/DIAG IV INF [facility] Start: 05-15-2023 Iv infusion therapy/prophylaxis /dx 1st to 1 hr THER/PROPH/DIAG IV INF [facility] Start: 03-13-2023 Iv infusion therapy/prophylaxis /dx 1st to 1 hr THER/PROPH/DIAG IV INF [facility] Start: 02-13-2023 Iv infusion hydration each additional hour HYDRATE IV INFUSION ADD-ON [facility] Start: 02-13-2023 Iv infusion therapy/prophylaxis /dx 1st [facility]: 01-16-[facility]23 Iv infusion therapy/prophylaxis /dx 1st to 1 hr [facility] Start: 12-12-2022 Iv infusion therapy/prophylaxis /dx 1st to 1 hr [facility] Start: 11-14-2022 Therapeutic prophylactic/dx injection subq/im THER/PROPH/DIAG INJ SC/IM [facility] Start: 10-17-2022 Therapeutic prophylactic/dx injection subq/im THER/PROPH/DIAG INJ SC/IM [facility] Start: 09-12-2022 Iv infusion therapy/prophylaxis /dx 1st to 1 hr THER/PROPH/DIAG IV INF [facility] Start: 08-13-2022 Iv infusion therapy/prophylaxis /dx 1st to 1 hr THER/PROPH/DIAG IV INF [facility] Work Phone: Start: 07-15-2022 Iv infusion therapy/prophylaxis /dx 1st to 1 hr THER/PROPH/DIAG IV INF [facility] Work Phone: Start: 06-14-2022 Iv infusion therapy/prophylaxis /dx 1st to 1 hr [facility] Start: 05-17-2022 Iv infusion therapy/prophylaxis /dx 1st to 1 hr [facility] Start: 04-12-2022 Iv infusion therapy/prophylaxis /dx 1st to 1 hr [facility] Start: 03-15-2022 Iv infusion therapy/prophylaxis /dx 1st to 1 hr [facility] Start: 02-15-2022 Iv infusion therapy/prophylaxis /dx 1st to 1 hr THER/PROPH/DIAG IV INF [facility] Work Phone: Start: 12-13-2021 Iv infusion therapy/prophylaxis /dx 1st to 1 hr THER/PROPH/DIAG IV INF [facility] Work Phone: Start: 04-05-2021 Procedure Education Eprescribed prescriptions (G8553) [facility] Work Phone: Start: 04-05-2021 Provider Instructions for Treatment [facility] Work Phone: Start: 04-05-2021 Assay of aldosterone ALDOSTERONE (75960) [facility]; [facility] Work Phone: Start: 04-05-2021 Assay of renin RENIN (15442) [facility]; [facility] Work Phone: Start: 04-05-2021 Metanephrines METANEPHRINES - URINE (97069) [facility]; [facility] Work Phone: Start: 04-05-2021 Catecholamines total urine CATECHOLAMINES TOTAL, URINE (69466) [facility]; [facility] Work Phone: Start: 04-05-2021 Assay of vanillylmandelic acid urine URINE VMA (28994) [facility]; [facility] Work Phone: Start: 03-30-2021 Procedure Education Eprescribed prescriptions (G8553) [facility]; [facility] Work Phone: Start: 03-30-2021 Comprehensive metabolic panel METABOLIC PANEL, COMPREHENSIVE (37281) [facility]; [facility] Work Phone: Start: 03-30-2021 Blood count complete auto&auto difrntl wbc CBC W/AUTO DIFF WBC (89892) [facility]; [facility] Work Phone: Start: 10-25-2020 Procedure Education Eprescribed prescriptions (G8553) [facility]; [facility] Work Phone: Start: 10-25-2020 Provider Instructions for Treatment [facility]; [facility] Work Phone: Start: 10-18-2020 Procedure Education Eprescribed prescriptions (G8553) [facility]; [facility] Work Phone: Start: 10-18-2020 Provider Instructions for Treatment Reviewed Diagnostic Tests [facility]; [facility] Work Phone: Start: 10-18-2020 25 hydroxy includes fractions if performed CALCIFEDIOL (46919) [facility]; [facility] Work Phone: Start: 10-18-2020 Assay of thyroid stimulating hormone tsh TSH (35095) [facility]; [facility] Work Phone: Start: 10-18-2020 TSH Qn TSH (89173) [facility]; [facility] Work Phone: Start: 10-18-2020 Urnls dip stick/tablet reagent auto microscopy URINALYSIS, W/ MICRO (80528) [facility]; [facility] Work Phone: Start: 10-18-2020 Urine albumin quantitative MICROALBUMIN: CREATININE RATIO (08326) AND (98852) [facility]; [facility] Work Phone: Start: 10-18-2020 Comprehensive metabolic panel METABOLIC PANEL, COMPREHENSIVE (32871) [facility]; [facility] Work Phone: Start: 10-18-2020 Lipid panel LIPID PANEL (70180) [facility]; [facility] Work Phone: Start: 10-18-2020 Blood count complete auto&auto difrntl wbc CBC W/AUTO DIFF WBC (18028) [facility]; [facility] Work Phone: Start: 08-20-2019 Provider Instructions for Treatment [facility] Work Phone: Start: 08-20-2019 Assay of thyroid stimulating hormone tsh TSH (01846) [facility]; [facility] Work Phone: Start: 08-20-2019 TSH Qn TSH (66797) [facility] Work Phone: Start: 08-20-2019 Urnls dip stick/tablet reagent auto microscopy URINALYSIS, W/ MICRO (93623) [facility] Work Phone: Start: 08-20-2019 Urine albumin quantitative MICROALBUMIN: CREATININE RATIO (76941) AND (12152) [facility] Work Phone: Start: 08-20-2019 25 hydroxy includes fractions if performed CALCIFIDIOL (84560) VIT D 25 [facility] Work Phone: Start: 08-20-2019 Lipoprotein blood lizzie numbers & subclasses NMR Profile (25491) [facility] Work Phone: Start: 07-17-2018 Procedure Education Eprescribed prescriptions (G8553) [facility] Work Phone: Start: 07-17-2018 Provider Instructions for Treatment [facility] Work Phone: Start: 07-17-2018 Oncology colorectal screening lizzie 10 dna markrs Cologuard - Strool Based DNA Test, CRC SCREEN (86811) [facility] Work Phone: Start: 07-17-2018 Urnls dip stick/tablet reagent auto microscopy URINALYSIS, W/ MICRO (01464) [facility] Work Phone: Start: 07-17-2018 Urine albumin quantitative MICROALBUMIN: CREATININE RATIO (53984) AND (01808) [facility] Work Phone: Start: 07-17-2018 25 hydroxy includes fractions if performed CALCIFIDIOL (51196) VIT D 25 [facility] Work Phone: Start: 07-17-2018 Lipoprotein blood lizzie numbers & subclasses LIPOPROTEIN, BLD, BY NMR (40832) [facility]; [facility] Work Phone: Start: 07-17-2018 Protein mass conc LIPOPROTEIN, BLD, BY NMR (45826) [facility] Work Phone: Start: 06-04-2017 Procedure Education Eprescribed prescriptions (G8553) [facility] Work Phone: Start: 06-04-2017 Provider Instructions for Treatment [facility] Work Phone: Start: 06-04-2017 Assay of thyroid stimulating hormone tsh TSH (93057) [facility]; [facility] Work Phone: Start: 06-04-2017 Thyrotropin Qn TSH (80819) [facility] Work Phone: Start: 06-04-2017 Urnls dip stick/tablet reagent auto microscopy URINALYSIS, W/ MICRO (84259) [facility] Work Phone: Start: 06-04-2017 Urine albumin quantitative MICROALBUMIN: CREATININE RATIO (11863) AND (77284) [facility] Work Phone: Start: 06-04-2017 Lipid panel LIPID PANEL (28477) [facility] Work Phone: Start: 08-12-2016 Lipid panel Lipid Panel (58376) [facility] Work Phone: Start: 08-12-2016 Hepatic function panel HEPATIC FUNCTION PANEL (91859) [facility] Work Phone: Start: 06-07-2016 Lipid panel LIPID PANEL (44021) [facility] Work Phone: Start: 06-07-2016 Assay of thyroid stimulating hormone tsh TSH (54675) [facility]; [facility] Work Phone: Start: 06-07-2016 Thyrotropin Qn TSH (50592) [facility] Work Phone: Start: 06-07-2016 Urnls dip stick/tablet reagent auto microscopy URINALYSIS, W/ MICRO (45156) [facility] Work Phone: Start: 06-07-2016 Urine albumin quantitative MICROALBUMIN: CREATININE RATIO (93154) AND (46345) [facility] Work Phone: Start: 06-07-2016 Comprehensive metabolic panel METABOLIC PANEL, COMPREHENSIVE (27549) [facility] Work Phone: Start: 06-07-2016 Blood count complete auto&auto difrntl wbc CBC W/AUTO DIFF WBC (86935) [facility] Work Phone: Start: 06-07-2016 25 hydroxy includes fractions if performed CALCIFIDIOL (48266) VIT D 25 [facility] Work Phone: Start: 06-07-2016 Provider Instructions for Treatment [facility] Work Phone: Start: 06-07-2015 Procedure Education Eprescribed prescriptions (G8553) [facility] Work Phone: Start: 06-07-2015 Provider Instructions for Treatment [facility] Work Phone: Start: 05-25-2015 Protein total xcpt refractometry urine UPEP (00659) [facility] Work Phone: Start: 05-25-2015 Protein electrophoretic fractj&quantj serum SPEP (34332) [facility] Work Phone: Start: 05-17-2015 Procedure Education Eprescribed prescriptions (G8553) [facility] Work Phone: Start: 05-17-2015 Provider Instructions for Treatment [facility] Work Phone: Start: 04-26-2015 Lipid panel Lipid Panel (71819) [facility] Work Phone: Start: 04-26-2015 Urine albumin quantitative MICROALBUMIN: CREATININE RATIO (37304) AND (60505) [facility] Work Phone: Start: 04-26-2015 Assay of thyroid stimulating hormone tsh TSH (63652) [facility]; [facility] Work Phone: Start: 04-26-2015 Thyrotropin Qn TSH (80896) [facility] Work Phone: Start: 04-26-2015 Blood count manual cell count each CBC WITH MANUAL DIFF (53004) [facility] Work Phone: Start: 04-26-2015 Comprehensive metabolic panel Metabolic Panel, Comprehensive (93053) [facility] Work Phone: Start: 04-26-2015 Urinalysis qual/semiquant except immunoassays URINALYSIS (85735) [facility] Work Phone: Start: 04-26-2015 25 hydroxy includes fractions if performed CALCIFEDIOL (47973) [facility] Work Phone: Start: 03-29-2013 Provider Instructions for Treatment [facility] Work Phone: Start: 04-25-2011 Provider Instructions for Treatment [facility] Work Phone: Start: 05-26-2009 Provider Instructions for Treatment [facility] Work Phone: Start: 03-31-2008 Provider Instructions for Treatment [facility] Work Phone: Start: 09-15-2006 Provider Instructions for Treatment [facility] Work Phone: Start: 09-15-2006 Cytp cerv/vag auto thin layer prep mnl screen Thin prep Pap (72558) [facility] Work Phone: Comment on above: swabbed vaginal lining Patient Education ED Fainting, U ncertain Cause [facility] Work Phone: Patient referral [facility] Work Phone: [facility] Work Phone: [facility] Work Phone: [facility] Work Phone: [facility] Work Phone: [facility] Work Phone: [facility] Work Phone: [facility] Work Phone[facility] Work Phone: [facility] Work Phone: [facility] Work Phone[facility] Work Phone: [facility] Work Phone: [facility] Work Phone: [facility] Work Phone: [facility]; [facility] Work Phone: Immunizations Immunization Date Immunization Notes Care Provider Fa [facility] 10-16-2023 pneumococcal 20-celestine nt conjugate vaccine DR AMADOR GLORIA MD [facility] 10-02-2023 RSV vaccine preF3, recombinant DR AMADOR GLORIA MD [facility] 08-07-2023 Covid (Spikevax) [facility] 08-07-2023 SARS-CoV-2 (COVID-19 ) [id number] DR AMADOR GLORIA MD [facility] 07-10-2023 influenza virus vaccine, unspecified formulation DR AMADOR GLORIA MD [facility] 07-10-2023 influenza, injectabl e, quadrivalent, preservative free [facility] 07-26-2022 Covid Moderna Bivale nt Booster [facility] 07-26-2022 SARS-CoV-2 (CV19)[id number] AMADOR GLORIA MD [facility] 02-01-2022 Covid (Pfizer) [facility] 08-23-2021 Covid (Moderna) [facility] 07-26-2021 influenza virus vaccine, unspecified formulation DR AMADOR GLORIA MD [facility] 07-26-2021 influenza, injectabl e, quadrivalent, preservative free [facility] 07-26-2021 influenza, seasonal, injectable [facility] 11-21-2020 Covid (Moderna) [facility] 10-24-2020 Covid (Moderna) [facility] Comment on above: Result Comment: 2023: [id number] 10-13-2020 COVID-19 (Moderna) Sade Cassie BOATENG Work Phone: [facility]; [facility] Work Phone: 07-31-2020 influenza virus vaccine, unspecified formulation DR AMADOR GLORIA MD [facility] 07-31-2020 influenza, injectabl e, quadrivalent, preservative free [facility] 07-31-2020 influenza, seasonal, injectable [facility] 08-16-2019 influenza, injectabl e, quadrivalent, preservative free [facility] 08-16-2019 influenza, seasonal, injectable [facility] 08-17-2018 influenza, injectabl e, quadrivalent, preservative free [facility] 08-17-2018 influenza, seasonal, injectable [facility] 07-28-2017 influenza, injectabl e, quadrivalent, preservative free [facility] 07-28-2017 influenza, seasonal, [facility] 07-11-2016 influenza virus vaccine, unspecified formulation DR AMADOR GLORIA MD [facility] 07-11-2016 influenza, injectabl e, quadrivalent, preservative free [facility] 07-11-2016 influenza, seasonal, [facility] 07-21-2015 pneumococcal conjuga te vaccine, [address] AMADOR GLORIA MD [facility] 07-13-2015 influenza virus vaccine, unspecified formulation DR AMADOR GLORIA MD [facility] 07-13-2015 influenza, injectabl e, quadrivalent, preservative free [facility] 07-13-2015 influenza, seasonal, [facility] 06-07-2015 tetanus toxoid, reduced diphtheria toxoid, and acellular pertussis vaccine, adsorbed Sade Matthews [facility] Work Phone: Comment on above: Site: Deltoid (Left) GIVEN 06/07/2015 [facility] 08-11-2014 influenza virus vaccine, unspecified formulation DR AMADOR GLORIA MD [facility] 08-11-2014 influenza, injectabl e, quadrivalent, preservative free [facility] 08-11-2014 influenza, seasonal, injectable [facility] 10-20-2013 Influenza virus vaccine [facility] Payers Date Payer Category Payer Self-pay [id number] 2011 Unknown [id number] 2007 Medicare [id number] 2007 Medicare [id number] 1940 Unknown [id number] 2.16.8 [id number] 1942 Unknown [id number] 2.16.8 [id number] 1942 Unknown [id number] 2.16.8 [id number] 1942 Unknown [id number] 2.16.8 [id number] Unknown Unknown [id number] 2.16.8 [id number] Unknown [id number] 2.16.8 [id number] Unknown [id number] 2.16.8 [id number] Unknown [id number] 2.16.8 [id number] Unknown [id number] 2.16.8 [id number] Unknown [id number] 2.16.8 [id number] Unknown [id number] 2.16.8 [id number] Unknown [id number] 2.16.8 [id number] Unknown [id number] 2.16.8 [id number] Unknown [id number] 2.16.8 [id number] Unknown [id number] 2.16.8 [id number] Unknown [id number] 2.16.8 [id number] Unknown [id number] 2.16.8 [id number] Unknown [id number] 2.16.8 [id number] Unknown [id number] 2.16.8 [id number] Social History Date Type Detail Facility Non Drinker/No Alcohol Use Never smoker [facility] Work Phone: Tobacco use: Never smoker. [facility] Work Phone: Tobacco use: Tobacco use: [facility] Work Phone: Start: 11-19-2021 End: 03-22-2022 Tobacco smoking status NHIS Unknown if ever smoked [facility] Start: 1940 Sex Assigned At Female W [facility] Start: 03-22-2022 End: 11-04-2023 Tobacco smoking status Never smoked tobacco (finding) [facility] Sex Assigned At Sex [facility] Start: 12-23-2024 End: 01-21-2025 Sex Female (finding) [facility] Sex Female [facility] Functional Status Date Assessment Result Facility 11-26-2023 Functional Status Other: [id number] [facility] 11-26-2023 Functional Status Up to chair [facility] 11-26-2023 Functional Status bilateral knee high removed/off [facility] 11-26-2023 Functional Status Door open, Room check performed [facility] 11-26-2023 Functional Status Independent [facility] 11-26-2023 Functional Status Single level home [facility] 11-26-2023 Functional Status [facility] 11-26-2023 [facility] Status [facility] 11-25-2023 [facility] Functional Status ice chips and sips take n [facility] 11-25-2023 Functional Status [facility] Mental Status Date Assessment Result Facility 07-15-2025 Cognitive function Awake [facility] Work Phone: 06-15-2025 Cognitive function Voice/Name [facility] Work Phone: 05-18-2025 Cognitive function Awake;Alert;A ppropriate;Follow s Commands [facility] Work Phone: 04-14-2025 Cognitive function Voice/Name [facility] Work Phone: 03-17-2025 Cognitive function Awake;Alert;A ppropriate;Follow s Commands [facility] Work Phone: 02-17-2025 Cognitive function Voice/Name [facility] Work Phone: 01-20-2025 Cognitive function Voice/Name [facility] Work Phone: 10-28-2024 Cognitive function Awake;Alert;A ppropriate;Follow s Commands [facility] Work Phone: 09-30-2024 Cognitive function Awake;Alert;A ppropriate;Follow s Commands [facility] Work Phone: 09-02-2024 Cognitive function Voice/Name [facility] Work Phone: 02-04-2024 Cognitive function Awake;Alert;A ppropriate;Follow s Commands [facility] Work Phone: 01-05-2024 Cognitive function Voice/Name [facility] Work Phone: 11-26-2023 Mental Status Oriented x 4 [facility] 11-25-2023 Mental Status [facility] 11-25-2023 Mental Status [facility] 09-18-2023 Cognitive function Awake;Alert;A ppropriate;Follow s Commands [facility] Work Phone: 08-14-2023 Cognitive function Awake;Alert;A ppropriate;Follow s Commands [facility] Work Phone: 07-17-2023 Cognitive function Awake;Alert;A ppropriate;Follow s Commands [facility] Work Phone: 06-19-2023 Cognitive function Voice/Name [facility] Work Phone: 04-17-2023 Cognitive function Voice/Name [facility] Work Phone: 03-13-2023 Cognitive function Awake;Alert;A ppropriate;Follow s Commands [facility] Work Phone: 02-13-2023 Cognitive function Voice/Name [facility] Work Phone: 01-16-2023 Cognitive function Awake;Alert;A ppropriate;Follow s Commands [facility] Work Phone: 12-12-2022 Cognitive function Voice/Name [facility] Work Phone: 11-14-2022 Cognitive function Awake;Alert;A ppropriate;Follow s Commands [facility] Work Phone: 10-17-2022 Cognitive function Awake;Alert;A ppropriate;Follow s Commands [facility] Work Phone: 09-12-2022 Cognitive function Voice/Name [facility] Work Phone: 08-13-2022 Cognitive function Voice/Name [facility] Work Phone: 07-15-2022 Cognitive function Voice/Name [facility] Work Phone: 06-14-2022 Cognitive function Voice/Name [facility] Work Phone: 05-17-2022 Cognitive function Awake;Alert;A ppropriate;Follow s Commands [facility] Work Phone: 03-15-2022 Cognitive function Patient Daisy linda Person;Place;Time [facility] Work Phone: 02-15-2022 Cognitive function Awake;Alert;A ppropriate;Follow s Commands [facility] Work Phone: 01-11-2022 Cognitive function Voice/Name [facility] Work Phone: 12-13-2021 Cognitive function Level Of Cons ciousness Awake;Alert;Appropriate;Follow s Commands [facility] Work Phone: 11-19-2021 Cognitive function Level Of Cons ciousness Awake;Alert;Appropriate;Follow s Commands [facility] Work Phone: 11-15-2021 Cognitive function Level Of Cons ciousness Awake;Alert [facility] Work Phone: 10-18-2021 Cognitive function Awake;Alert;A ppropriate;Follow s Commands [facility] Work Phone: Clinical Notes 11-25-2023 to 11-26-2023 Note Date & Type Note Facility 11-26-2023 Note Discharge Instructions Thank you for allowing [facility] to assist you with your healthcare needs. The following is important discharge information regarding your hospital visit. Your Care Team Dr. Gloria Your Diagnosis HTN (hypertension) Osteoarthritis Rheumatoid arthritis Status post total hip replacement, right What to do next Scheduled Follow-Up Appointments Appointment Type When Where Contact InformationPT Outpatient Evaluation 11/28/2023 10:30 AM [facility] [phone] Follow Up Appointments Follow Up with JAGDEEP HOFFMAN PA-C, Orthopedic When 12/08/2023 03:30 PM EST Why: Follow-up as scheduled Where: [facility] [address] [place] [address] [place] [address]- The Following Activity and Diet Have Been Ordered for You Activity: Weight bearing as tolerated. Do not get out of bed on operative side. Diet: No changes were made to your diet. The Following Treatments Have Been Ordered for You Discharge Labs No qualifying data available. Discharge Radiology No qualifying data available. Other Therapies No qualifying data available. Post Acute Orders No qualifying data available. Someone Will Contact You Regarding These Home Health Referrals Consult Home Health - OT (Home Health OT Consult) - Ordered -- 11/26/23 11:44:00 EST, Home Therapy Order: OT Eval & Treat, Home Therapy Instruction: Full weight bearing, Reason: General Debility Consult Home Health - PT (Home Health PT Consult) - Ordered -- 11/26/23 11:44:00 EST, Home Therapy Order: PT Eval & Treat, Reason: Post total hip, Home Therapy Instruction: Full weight bearing Allergies No Known Medication Allergies Medications Please ask your primary doctor or pharmacist before taking any other medication not listed, including over the counter drugs, herbal medications, vitamins and or supplements as they may interact with your home medications. What How Much When Why Instructions Last Dose New acetaminophen (Tylenol) 1,000 Milligram by mouth Three (3) times a day not to exceed 3000 mg/ day 11/26/23 at 0836am New docusate-senna (Senokot S 50 mg-8.6 mg oral tablet) 2 tab(s) by mouth Two (2) times a day Duration: 3 Days Take until first bowel movement, then as needed Pickup at [facility] #[id number] 11/26/23 at 0836am New famotidine (Pepcid 20 mg oral tablet) 1 tab(s) by mouth Once a day Pickup at [facility] #[id number] 11/26/23 at 0836am New oxyCODONE (oxyCODONE 5 mg oral tablet ( IMMEDIATE release )) See instructions Status post total hip replacement, right 1-2 tab(s) Oral q4h Pickup at [facility] #[id number] 11/26/23 at 1130am Changed aspirin 81 Milligram by mouth Twice daily with meals Take 81 mg aspirin twice daily with food for 4 weeks postoperatively for DVT prophylaxis. 11/26/23 at 0836am Unchanged cholecalciferol (Vitamin D3) 25 Microgram by mouth Every day none today Unchanged folic acid (folic acid 1 mg oral tablet) 2 tab(s) by mouth Once a day 11/26/23 at 0836am Unchanged hydrALAZINE (hydrALAZINE 25 mg oral tablet) 1 tab(s) by mouth Two (2) times a day 11/26/23at 0836am Unchanged methotrexate (methotrexate 2.5 mg oral tablet) 1 tab(s) by mouth Every week none Unchanged metoprolol (Metoprolol Succinate ER 100 mg oral TABLET extended release) 1 tab(s) by mouth Once a day 11/26/23 at 0836am Unchanged ramipril (ramipril 10 mg oral capsule) 1 cap by mouth Two (2) times a day 11/26/23 at 0836am Pharmacy Information [facility] #[id number]: [address], [place] [id number] [phone] Please take this list to your next doctor s visit. Bring all medications you take, including over the counter medications, herbals and other supplements with you to your doctor s visit. Patients and families are reminded to discard old lists and to update any records with all medication providers or retail pharmacies. Medication Leaflets docusate and senna (DOK charlie sate and SEN a) Colace 2-in-1, Senexon-S, Senna Plus, Senna S, Senna-Time S, Senokot S, SenoSol-SS, Stool Softener + Stimulant Laxative, Stool Softener with Laxative What is the most important information I should know about docusate and senna? Use exactly as directed on the label, or as prescribed by your doctor. What is docusate and senna? Docusate is a stool softener. Senna is a laxative. Docusate and senna is a combination medicine used to treat occasional constipation. Docusate and senna may also be used for purposes not listed in this medication guide. What should I discuss with my healthcare provider before using docusate and senna? You should not use this medicine if you are allergic to docusate or senna, or if you are also taking mineral oil. Ask a doctor or pharmacist if this medicine is safe to use if you have ever had: nausea or vomiting; stomach pain; a sudden change in bowel habits that lasts for 2 weeks or longer; or an intestinal disorder such as Crohn's disease or ulcerative colitis. Ask a doctor before using this medicine if you are or . Do not give this medicine to a child younger than 2 years old without medical advice. How should I use docusate and senna? Use exactly as directed on the label, or as prescribed by your doctor. Take docusate and senna with a full glass of water. It may be best to take this medicine at night or at bedtime. Docusate and senna should cause you to have a bowel movement within 6 to 12 hours. Do not take docusate and senna for longer than 7 days in a row, unless your doctor tells you to. Call your doctor if your constipation does not improve or if it gets worse after taking docusate and senna. Store at room temperature away from moisture and heat. What happens if I miss a dose? Since docusate and senna is used when needed, you may not be on a dosing schedule. Skip any missed dose if it's almost time for your next dose. Do not use two doses at one time. What happens if I overdose? Seek emergency medical attention or call the Poison Help line at . Overdose symptoms may include nausea, vomiting, stomach pain, or diarrhea. What should I avoid while using docusate and senna? Ask a doctor or pharmacist before using any other laxative or other stool softener that may contain ingredients similar to docusate or senna. What are the possible side effects of docusate and senna? Get emergency medical help if you have signs of an allergic reaction: hives; difficulty breathing; swelling of your face, lips, tongue, or throat. Stop using docusate and senna and call your doctor at once if you have: rectal bleeding; severe stomach pain, nausea, vomiting; or no bowel movement. Common side effects may include: gas, bloating; diarrhea; or mild nausea. This is not a complete list of side effects and others may occur. Call your doctor for medical advice about side effects. You may report side effects to FDA at 5-301-UCB-0384. What other drugs will affect docusate and senna? Other drugs may affect docusate and senna, including prescription and ufqu-rou-ncsliuy medicines, vitamins, and herbal products. Tell your doctor about all your current medicines and any medicine you start or stop using. Where can I get more information? Your pharmacist can provide more information about docusate and senna. Remember, keep this and all other medicines out of the reach of children, never share your medicines with others, and use this medication only for the indication prescribed. Every effort has been made to ensure that the information provided by [employer]. ('[employer]') is accurate, up-to-date, and complete, but no guarantee is made to that effect. Drug information contained herein may be time sensitive. [employer] information has been compiled for use by healthcare practitioners and consumers in the [place] and therefore [employer] does not warrant that uses outside of the [place] are appropriate, unless specifically indicated otherwise. [employer] drug information does not endorse drugs, diagnose patients or recommend therapy. [employer] drug information is an informational resource designed to assist licensed healthcare practitioners in caring for their patients and/or to serve consumers viewing this service as a supplement to, and not a substitute for, the expertise, skill, knowledge and judgment of healthcare practitioners. The absence of a warning for a given drug or drug combination in no way should be construed to indicate that the drug or drug combination is safe, effective or appropriate for any given patient. [employer] does not assume any responsibility for any aspect of healthcare administered with the aid of information [employer] provides. The information contained herein is not intended to cover all possible uses, directions, precautions, warnings, drug interactions, allergic reactions, or adverse effects. If you have questions about the drugs you are taking, check with your doctor, nurse or pharmacist. Copyright 3737-5660 [employer]. Version: 5.. Revision Date: 05/19/2023. oxycodone (ox i KOE done) Oxaydo, OxyCONTIN, Roxicodone, RoxyBond, Xtampza ER What is the most important information I should know about oxycodone? MISUSE OF OPIOID MEDICINE CAN CAUSE ADDICTION, OVERDOSE, OR . Fatal side effects may occur if you also drink alcohol or use other drugs that cause drowsiness or slow breathing. Using opioid medicine during may cause life-threatening withdrawal symptoms in the . What is oxycodone? Oxycodone is an opioid pain medication used to treat moderate to severe pain. Oxycodone is usually given after other treatments did not work or were not tolerated. Extended-release oxycodone is for ayqqbr-dvb-nqjov treatment of severe and chronic pain that requires longer treatment. This medicine is not for use on an as-needed basis. Oxycodone may also be used for purposes not listed in this medication guide. What should I discuss with my healthcare provider before taking oxycodone? You should not use oxycodone if you are allergic to it, or if you have severe asthma, breathing problems or a stomach or bowel obstruction (including paralytic ileus). Tell your doctor if you have ever had: other breathing problems, sleep apnea (breathing that stops during sleep); a head injury, brain tumor, high pressure inside the skull, or seizures, drug or alcohol addiction, or mental illness; if you have used an MAO inhibitor in the past 14 days, such as isocarboxazid, linezolid, methylene blue injection, phenelzine, or tranylcypromine; urination problems, problems with your gallbladder, pancreas, thyroid, or adrenal gland; or liver or kidney disease. Most forms of oxycodone are not approved for use in people under 18 years old. The extended-release tablets should not be given to a child younger than 11 years old. Tell your doctor if you also use stimulant medicine, opioid medicine, herbal products, or medicine for depression, mental illness, Parkinson's disease, migraine headaches, serious infections, or prevention of nausea and vomiting. An interaction with oxycodone could cause a serious condition called serotonin syndrome. May harm an unborn baby. Tell your doctor if you are or plan to become . If you use oxycodone during , your baby could be born with life-threatening withdrawal symptoms, and may need medical treatment for several weeks. Do not breastfeed. Oxycodone in breast milk can cause life-threatening side effects in a nursing baby. Long-term oxycodone may affect fertility in men or women. could be harder to achieve while either parent is using this medicine. How should I take oxycodone? Follow the directions on your prescription label and read all medication guides or instruction sheets. Never use oxycodone in larger amounts, or for longer than prescribed. Tell your doctor if you feel an increased urge to use more of this medicine. Never share opioid medicine with another person, especially someone with a history of drug addiction. MISUSE CAN CAUSE ADDICTION, OVERDOSE, OR . Keep the medicine where others cannot get to it. Selling or giving away this medicine is against the law. Never crush a pill or use the liquid to inhale the mixture or inject it into your vein. This could result in . Your dose needs may change if you switch to a different brand, strength, or form of this medicine. Avoid medication errors by using exactly as directed on the label, or as prescribed by your doctor. Stop taking all other ukmyod-dlb-nxeuj opioid pain medicines when you start taking extended-release oxycodone. Swallow the extended-release forms whole to avoid exposure to a potentially fatal overdose. Do not crush, chew, break, open, or dissolve. Take the extended-release capsules with food. Read and carefully follow the instructions for use on how to prepare and take this medicine if you cannot swallow extended release capsules whole or you use a feeding tube. Ask your doctor or pharmacist if you don't understand these instructions. Measure liquid medicine with the supplied measuring device (not a kitchen spoon). You may be given other medications to help prevent or treat certain side effects. You may have withdrawal symptoms if you stop using oxycodone suddenly. Ask your doctor before stopping the medicine. Store at room temperature away from moisture and heat. Keep your medicine in a place where no one can use it improperly. Do not keep leftover medicine. Just one dose can cause in someone using it accidentally or improperly. Ask your pharmacist about a drug take-back program, or flush the unused medicine down the toilet. What happens if I miss a dose? Since oxycodone is used for pain, you are not likely to miss a dose. Skip any missed dose if it is almost time for your next dose. Do not use two doses at one time. What happens if I overdose? Seek emergency medical attention or call the Poison Help line at . An overdose can be fatal, especially in a child or person using opioid medicine without a prescription. Your doctor may recommend you get naloxone (a medicine to reverse an opioid overdose) and keep it with you at all times. A person caring for you can give the naloxone if you stop breathing or don't wake up. Your caregiver must still get emergency medical help and may need to perform CPR (cardiopulmonary resuscitation) on you while waiting for help to arrive. Anyone can buy naloxone from a pharmacy or local health department. Make sure any person caring for you knows where you keep naloxone and how to use it. What should I avoid while taking oxycodone? Do not drink alcohol or any products that contain alcohol. Dangerous side effects or could occur. Avoid driving or hazardous activity until you know how this medicine will affect you. Dizziness or drowsiness can causing falls, accidents, or severe injuries. Also avoid getting up too fast from a sitting or lying position, or you may feel dizzy. What are the possible side effects of oxycodone? Get emergency medical help if you have signs of an allergic reaction: hives, difficult breathing, swelling of your face, lips, tongue, or throat. Opioid medicine can slow or stop your breathing, and may occur, especially if you drink alcohol or use other drugs that cause drowsiness or slow breathing. A person caring for you should give naloxone and/or seek emergency medical attention if you have slow breathing with long pauses, blue colored lips, or if you are hard to wake up. Call your doctor at once if you have: slow heart rate, weak pulse, fainting, slow breathing (breathing may stop); chest pain, fast or pounding heartbeats; a seizure, extreme drowsiness; or decreased adrenal gland hormones--nausea, vomiting, stomach pain, loss of appetite, feeling tired or light-headed, muscle or joint pain, skin discoloration, craving salty foods. Serious breathing problems may be more likely in older adults and in those who are debilitated or have wasting syndrome or chronic breathing disorders. Seek medical attention right away if you have symptoms of serotonin syndrome, such as: agitation, hallucinations, fever, sweating, shivering, fast heart rate, muscle stiffness, twitching, loss of coordination, nausea, vomiting, or diarrhea. Common side effects may include: sleep problems (insomnia), itching; drowsiness, headache, dizziness, tiredness; or constipation, stomach pain, nausea, vomiting. This is not a complete list of side effects and others may occur. Call your doctor for medical advice about side effects. You may report side effects to FDA at 9-934-VGP-0915. What other drugs will affect oxycodone? You may have a fatal oxycodone overdose if you start or stop using certain medicines. Tell your doctor about all your medications. Tell your doctor about all your medications especially if you use medicine to treat HIV, antibiotic, antifungal medication, or seizure medication. Many other drugs can be dangerous when used with opioid medicine. Tell your doctor if you also use: medicine for allergies, asthma, blood pressure, motion sickness, irritable bowel, or overactive bladder; other opioid medicines, a benzodiazepine sedative like Valium, Klonopin, or Xanax; sleep medicine, muscle relaxers, or other drugs that make you drowsy; or drugs that affect serotonin, such as antidepressants, stimulants, or medicine for migraines or Parkinson's disease. This list is not complete and many other drugs may affect oxycodone. This includes prescription and zvhl-clx-zkhqgbz medicines, vitamins, and herbal products. Not all possible drug interactions are listed here. Where can I get more information? Your doctor or pharmacist can provide more information about oxycodone. Remember, keep this and all other medicines out of the reach of children, never share your medicines with others, and use this medication only for the indication prescribed. Every effort has been made to ensure that the information provided by [employer]. [employer]') is accurate, up-to-date, and complete, but no guarantee is made to that effect. Drug information contained herein may be time sensitive. [employer] information has been compiled for use by healthcare practitioners and consumers in the [place] and therefore [employer] does not warrant that uses outside of the [place] are appropriate, unless specifically indicated otherwise. [employer] drug information does not endorse drugs, diagnose patients or recommend therapy. [employer] drug information is an informational resource designed to assist licensed healthcare practitioners in caring for their patients and/or to serve consumers viewing this service as a supplement to, and not a substitute for, the expertise, skill, knowledge and judgment of healthcare practitioners. The absence of a warning for a given drug or drug combination in no way should be construed to indicate that the drug or drug combination is safe, effective or appropriate for any given patient. [employer] does not assume any responsibility for any aspect of healthcare administered with the aid of information [employer] provides. The information contained herein is not intended to cover all possible uses, directions, precautions, warnings, drug interactions, allergic reactions, or adverse effects. If you have questions about the drugs you are taking, check with your doctor, nurse or pharmacist. Copyright [employer]. Version: 17.01. Revision Date: 11/04/2023. Education Materials [facility] Post-operative Instructions PLEASE FOLLOW [facility] POST-OP INSTRUCTIONS GIVEN WATCH FOR SIGNS OF INFECTION: call the office ([phone]) if experencing any of the following: (Usually appears 36-48 hours after surgery) Increased temperature (101 degrees Fahrenheit or higher) Redness or swelling Increased uncontrolled pain Foul odor or drainage Calf discomfort Significant swelling Or if having any chest pain, shortness of breath, or difficulty breathing or swallowing call the office or go the nearest Emergency Room. If you have any questions, please call your doctor at the number listed on your follow up instructions. Form: [id number]) R: 02/16 Additional Information VACCINATE! IT SAVES LIVES! Members of the community who have not yet received the COVID-19 vaccine and would like to receive it can visit one of [facility] vaccine clinics. There are many vaccine clinic locations within the [facility]. For locations and available times, please visit [email or web address].o hio.gov/. It is important to note that some COVID mobile vaccine clinics are held outdoors and may be canceled in rainy or stormy conditions. To learn more about pediatric vaccinations (ages 5-11), we invite you to visit the [facility] webpage. [email or web address].org/p [email or web address]-Zczzm-Dfcotpdvzov-Freq sjssxa-Mnuwa-Czfopnske.html To learn more about the COVID-19 vaccine, we invite you to visit the CDC website for a list of frequently asked questions.https://www.cdc.gov/co ronavirus/2019-ncov/vaccines/faq .html [employer] Patient Portal Access Instructions: Stay connected with your healthcare team and access your personal medical information anytime with the [facility] Patient Portal. Please follow the directions below to create your [employer] account: 1.Access the email account you provided upon registration to the hospital/physician office.2.Look for an invitation email from [facility].3.Open the email and access the invitation link: [facility] to [facility].4.Fill in the required ohara to create your account. To access your account, visit [email or web address]. Click the blue button labeled "Access Patient Portal" and then log in with the username and password that you created in the steps above. You will be able to view your test results, lab results, a summary of your visits, upcoming appointments and more. There is also a convenient messaging option where you can send secure messages to your provider. In addition, you will have the ability to download any documents or summaries to your computer and/or send the information securely to a physician. Remember that your healthcare information is confidential, so carefully consider who you will allow to register on the [facility] Patient Portal for access to your information. You can also access the [facility] Patient Portal on the [facility] kirt. Simply click on "Patient Portal" and then log into your account. If you would like to receive a full copy of your medical records, please contact the [facility] Medical Records Department by calling [phone], Friday through Friday between 8 a.m. and 4:30 p.m. HOW TO SAFELY DISPOSE OF PRESCRIPTION MEDICATIONS Please use one of the following methods to safely dispose of your unused medications. 1.Use a drug disposal kit: the drug disposal pouch allows you to safely discard your old and unused drugs. Ask your nurse to give you one when you are discharged.2.Visit a local take-back location: Many local pharmacies and police departments have programs that collect old and unwanted prescription drugs. Call your local pharmacy or go to http://Roadmap.[employer] Media/8B3Nn3t to find one close to you.3.Make use of household items: Use cat litter or old coffee grounds to dispose medications if other options are not available. Mix your drugs with these household products, seal them in an airtight container and throw it into the garbage. Call [facility]: [phone] to be sure your drugs can be disposed of in this way. Some medicines may require a different approach.4.Never flush your medications down the toilet. IF YOU HAVE BEEN PRESCRIBED AN OPIOID FOR PAIN If you have been prescribed an opioid (such as hydrocodone, oxycodone or morphine), it is critical to understand the possible side effects and risks of opioid pain medications. Even when taken as directed, opioids can have several side effects including: Tolerance, meaning you might need to take more of a medication for the same pain relief. Nausea, vomiting and/or constipation. Sleepiness, dizziness, dry mouth, confusion, depression or itching. Physical dependence, meaning you have withdrawal symptoms when a medication is stopped, can develop within a few days. KNOW YOUR RESPONSIBILITIES It is important to know exactly how much and how often to take the opioid pain medications you are prescribed. Never take opioids in higher amounts or more often than prescribed. Do not combine opioids with alcohol or other drugs that cause drowsiness, such as benzodiazepines, also known as benzos, including diazepam and alprazolam, muscle relaxants or sleep aids. Never sell or share prescription opioids. This is illegal. Store opioids in a secure place and out of reach of others (including children, family, friends and visitors). The last page of this document has been signed and retained as a CHART COPY. Signatures Patient Education Materials [address] [place] [address] Post-op Instruction 05/2017 (00665) Medication Leaflets docusate and senna, oxycodone My discharge plan and instructions have been reviewed and explained to me and I,TRES RAMIRES understand my current condition and have read and understand these discharge instructions. I have received a written copy of the plan/instructions. If I have questions, I am aware that I should contact my doctor. 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 She states that she is doing much better than she expected. She states that she has had no previous joint replacements and was really expecting much worse. She states she is having no pain this morning. She adds that she has been up overnight with staff to use the restroom and felt that it went very well. She has been tolerating a diet without any difficulty or nausea. She denies any fever, chills, cough, shortness of breath, chest pain, abdominal pain, nausea or dysuria. Labs and vital signs reviewed and were stable. Physical exam was unremarkable. From hospitalist perspective, patient is medically optimized for discharge home today. Will defer to primary team to make final decision to discharge. All questions answered. Objective Vitals and Measurements T: 36.3 C (Oral) TMIN: 36.2 C (Temporal Artery) TMAX: 36.7 C (Oral) HR: 66(Monitored) RR: 16 BP: 124/57 SpO2: 95% HT: 160 cm WT: 59.1 kg BMI: 23.09 Intake and Output 7AM Yesterday to 7AM Today Intake and Output (Last 24 hours) Intake Administration Information 631.56 Oral Intake 300.00 Supplement Intake 460.00 Output Intra-Op EBL 300.00 Stool Count 1.00 Urine Count 7.00 Total Summary Total Intake 1391.56 Total Output 300.00 Fluid Balance 1091.56 Physical Exam General: No acute distress. Patient is alert, chronically ill-appearing. Skin: No rash. Skin is warm, dry and intact. HEENT: Head is normocephalic, atraumatic. Pupils are equal, round and reactive. Neck: Supple. No lymphadenopathy, thyromegaly. Lungs: Bilaterally clear but diminished without crepitation or wheeze. Unlabored. Heart: Heart is regular rhythm, S1, S2. No murmurs, gallops or rubs. Abdomen: Abdomen is soft, nontender. Bowels sounds present in all quadrants. Extremities: No clubbing, cyanosis, or edema. Peripheral pulses palpable. No calf tenderness. Right hip surgical dressing is dry and intact. Neurological: Patient is awake and alert to person, place and time. Following simple commands, moving all extremities. Weight Dosing Weight: 59.1 kg (11/25/23) Dosing Weight: 59.1 kg (11/25/23) Medications Medications (23) Active Scheduled: (12) acetaminophen 500 mg Tablet 1,000 mg 2 tab(s), Oral, q8h aspirin 81 mg Chewable 81 mg 1 tab(s), Oral, BIDM docusate sodium 100 mg Capsule 100 mg 1 cap(s), Oral, BID docusate-senna (Senokot S) 50 mg-8.6 mg Tablet 2 tab(s), Oral, BID famotidine 20 mg tablet 20 mg 1 tab(s), Oral, qDay folic acid 1 mg tablet 2 mg 2 tab(s), Oral, qDay hydralazine 25 mg Tablet 25 mg 1 tab(s), Oral, BID lisinopril 20 mg tablet 40 mg 2 tab(s), Oral, qDay magnesium hydroxide 8% Suspension 30 mL UD 30 mL, Oral, Daily metoprolol succinate 50 mg ER tablet 100 mg 2 tab(s), Oral, qDay multivitamin (Myadec) with minerals Therapeutic Multiple Vitamins with Minerals Tablet 1 tab(s), Oral, qDayM tranexamic acid PMX 1 gram(s) 100 mL, IV Piggyback, AsDirected Continuous: (0) PRN: (11) acetaminophen 325 mg Tablet 650 mg 2 tab(s), Oral, q4h diphenhydramine 25 mg tablet 25 mg 1 tab(s), Oral, q6h diphenhyDRAMINE 50 mg/mL (1 mL) INJ 25 mg 0.5 mL, IV Push, q6h ketorolac 30 mg/mL (1 mL) vial 15 mg 0.5 mL, IV Push, q6h melatonin 3 mg tablet 6 mg 2 tab(s), Oral, qHS morphine 2 mg/mL 1 mL syringe 2 mg 1 mL, IV Push, q1h ondansetron 2 mg/ 1 mL 2 mL INJ 4 mg 2 mL, IV Push, q8h oxycodone 5 mg tablet (immediate release) 5 mg 1 tab(s), Oral, q4h oxycodone 5 mg tablet (immediate release) 10 mg 2 tab(s), Oral, q4h prochlorperazine 10 mg/2 mL vial 5 mg 1 mL, IV Push, q6h sodium biphosphate-sodium phosphate 19 gm-7 gm Enema 133 mL, Rectal, qDay Lab Results 11/26 05:06 WBC: 14.7 H Hgb: 10.1 L Hct: 29.4 L Platelet: 267 Neutrophil %: 85.8 H Glucose Level: 102 Sodium Level: 135 L Potassium Level: 4.4 BUN: 22 H Creatinine Lvl (s): 0.87 Imaging Results and Diagnostics XR Hip Right w/Pelvis 4 Views Result Date: November 25, 2023 Verified By: MICHAEL LOJA MD CLINICAL STATEMENT: IMPRESSION: Status post total right hip arthroplasty with no complicating process. EKG No qualifying data available. Assessment/Plan 1. Osteoarthritis Chronic, s/p right hip arthroplasty. POD # 1. Management per primary team. Continue PO pain medication and antiemetics. Consult placed to PT and OT to evaluate and treat. 2. HTN (hypertension) Chronic, controlled. Continue current antihypertensives. SBP goal of 140 or less. 3. Rheumatoid arthritis Chronic. Patient takes methotrexate weekly. Patient seen and evaluated this morning while resting in bed. Physical exam was unremarkable. Lab results and vital signs trends reviewed and were stable. From hospitalist perspective, patient is medically optimized for discharge home today. Hospitalist service will sign-off at this time. Please feel free to re-consult service if there are any changes in condition. Thank you for including hospitalist service in the care of your patient! DVT prophylaxis with aspirin 81 mg PO BID. Code status: Full Code. Labs, diagnostic test and progress notes reviewed as noted in HPI. Plan of care discussed with patient. All questions answered. Patient verbalizes understanding and is agreeable with plan of care. This case was discussed with collaborating physician, Dr. Jennifer Madrid. Time Spent 35 minutes spent reviewing past diagnostic tests, reviewing lab results, vital sign trends, medical history, reviewing medications and ordering home medications, examining patient, discussed plan of care with nursing, social work assistant and therapy, collaborating with physician, and documenting in chart. Digitally Signed by JELLY PERRY on 11/26/2023 12:[address] [facility] 11-26-2023 Hospital Discharg e instructions Patient Education 11/26/2023 08:08:39 5 - [facility] Post-op Instruction 05/2017 (63653) [facility] Post-operative Instructions PLEASE FOLLOW [facility] POST-OP INSTRUCTIONS GIVEN WATCH FOR SIGNS OF INFECTION: call the office ([phone]) if experencing any of the following: (Usually appears 36-48 hours after surgery) Increased temperature (101 degrees Fahrenheit or higher) Redness or swelling Increased uncontrolled pain Foul odor or drainage Calf discomfort Significant swelling Or if having any chest pain, shortness of breath, or difficulty breathing or swallowing call the office or go the nearest Emergency Room. If you have any questions, please call your doctor at the number listed on your follow up instructions. Form: 338A ([id number]) R: 02/16 Follow Up Care 11/03/2023 10:01:32 With:JAGDEEP HOFFMAN PA-C, Orthopedic Address: [facility] [address] [place] [id number] When:12/08/2023 15:30:00 Comments:Follow-up as scheduled [facility] 11-26-2023 Note Date of Service November 26, 2023 Subjective The patient was sitting in bed upon examination. Patient denies any chest pain, shortness of breath, dizziness, lightheadedness, nausea or vomiting, or calf pain. No adverse overnight events. Pain has been controlled on medications. Patient states she is doing very well this morning. She states she is doing better than what she thought she would be doing. There was concern postoperatively about patient going home. She states she has her sister who will be residing with her for as long as needed. Patient is wishing to go home today. She has not been assessed by physical therapy today. Objective Vitals and Measurements T: 36.3 C (Oral) TMIN: 36.2 C (Temporal Artery) TMAX: 36.7 C (Oral) HR: 66(Monitored) RR: 16 BP: 121/52 SpO2: 93% HT: 160 cm WT: 59.1 kg BMI: 23.09 Intake and Output 7AM Yesterday to 7AM Today Intake and Output (Last 24 hours) Intake Administration Information 631.56 Supplement Intake 260.00 Output Intra-Op EBL 300.00 Urine Count 5.00 Total Summary Total Intake 891.56 Total Output 300.00 Fluid Balance 591.56 Physical Exam Vital signs stable, afebrile SCDs and KANE hose are in place bilaterally Right hip is soft and supple Patient is able to plantarflex and dorsiflex actively Sensation is intact to saphenous, sural, superficial and deep peroneal, and tibial distribution Dressing is clean dry and intact Negative signs and symptoms of DVT, negative Homans bilaterally Weight Dosing Weight: 59.1 kg (11/25/23) Dosing Weight: 59.1 kg (11/25/23) Medications Medications (25) Active Scheduled: (14) acetaminophen 500 mg Tablet 1,000 mg 2 tab(s), Oral, q8h aspirin 81 mg Chewable 81 mg 1 tab(s), Oral, BIDM bisacodyl 5 mg EC tablet 10 mg 2 tab(s), Oral, Once docusate sodium 100 mg Capsule 100 mg 1 cap(s), Oral, BID docusate-senna (Senokot S) 50 mg-8.6 mg Tablet 2 tab(s), Oral, BID famotidine 20 mg tablet 20 mg 1 tab(s), Oral, qDay folic acid 1 mg tablet 2 mg 2 tab(s), Oral, qDay hydralazine 25 mg Tablet 25 mg 1 tab(s), Oral, BID lisinopril 20 mg tablet 40 mg 2 tab(s), Oral, qDay magnesium hydroxide 8% Suspension 30 mL UD 30 mL, Oral, Daily meloxicam 7.5 mg tablet 7.5 mg 1 tab(s), Oral, BIDM metoprolol succinate 50 mg ER tablet 100 mg 2 tab(s), Oral, qDay multivitamin (Myadec) with minerals Therapeutic Multiple Vitamins with Minerals Tablet 1 tab(s), Oral, qDayM tranexamic acid PMX 1 gram(s) 100 mL, IV Piggyback, AsDirected Continuous: (0) PRN: (11) acetaminophen 325 mg Tablet 650 mg 2 tab(s), Oral, q4h diphenhydramine 25 mg tablet 25 mg 1 tab(s), Oral, q6h diphenhyDRAMINE 50 mg/mL (1 mL) INJ 25 mg 0.5 mL, IV Push, q6h ketorolac 30 mg/mL (1 mL) vial 15 mg 0.5 mL, IV Push, q6h melatonin 3 mg tablet 6 mg 2 tab(s), Oral, qHS morphine 2 mg/mL 1 mL syringe 2 mg 1 mL, IV Push, q1h ondansetron 2 mg/ 1 mL 2 mL INJ 4 mg 2 mL, IV Push, q8h oxycodone 5 mg tablet (immediate release) 5 mg 1 tab(s), Oral, q4h oxycodone 5 mg tablet (immediate release) 10 mg 2 tab(s), Oral, q4h prochlorperazine 10 mg/2 mL vial 5 mg 1 mL, IV Push, q6h sodium biphosphate-sodium phosphate 19 gm-7 gm Enema 133 mL, Rectal, qDay Lab Results 11/26 05:06 WBC: 14.7 H Hgb: 10.1 L Hct: 29.4 L Platelet: 267 Neutrophil %: 85.8 H Glucose Level: 102 Sodium Level: 135 L Potassium Level: 4.4 BUN: 22 H Creatinine Lvl (s): 0.87 EKG No qualifying data available. Assessment/Plan HTN (hypertension) Osteoarthritis 1. Status post right direct anterior total hip arthroplasty postop day #1 2. Continue pain medications: Tylenol, meloxicam, oxycodone. Do not take any other nonsteroidal anti-inflammatories while on meloxicam/Mobic 3. DVT prophylaxis: Take 81 mg aspirin twice daily with food for 4 weeks postoperatively for DVT prophylaxis. Patient denies past history of DVT or pulmonary embolism 4. Physical therapy: Weightbearing as tolerated with walker. Appreciate recommendations from therapy with regards to discharge planning today. 5. H & H: 10.1/29.4, asymptomatic. Postoperative anemia from surgery without intraoperative complications. At this time there is no need for treatment. 6. Reactive Leukocytosis: currently 14.7, afebrile. Patient did receive decadron intra-operatively. No clinical signs of infection. 7. Encouraged incentive spirometry 8. Continue postoperative medical management per medicine: Case was discussed with medicine 9. Postoperative constipation: Discussed with the patient to continue stool softener until first bowel movement. After first bowel movement patient can then take as needed. They were also instructed that if they are not able to have a bowel movement within 3 days they are to contact our office for change of medication. Patient voiced understanding. 10. Disposition: Plan will be for possible discharge home today as long as patient is medically stable and tolerates therapy with pain well-controlled. I would like recommendations from physical therapy with regards to discharge planning with home health versus outpatient physical therapy. Patient would like her prescriptions E scribed to [facility] in [facility]. She will need to be set up for therapy dependent upon recommendations. Patient will follow-up per postoperative instructions. If patient does get discharged home today she will contact our office with any concerns or questions. She has been instructed to not proceed with any of her Orencia for 5 weeks postoperatively. I have reviewed the [place] Automated Rx Reporting System (OARRS) report for this patient for refill pattern and other prescriber involvement as part of the appropriate surveillance for the provision of acute and chronic controlled medications. The report was requested and reviewed on the date of this entry, and was considered in the prescribing process This dictation was created using voice recognition software. Phonetic and/or grammatical errors may exist. Rheumatoid arthritis Digitally Signed by JAGDEEP HOFFMAN PA-C on 11/26/2023 08:[address] [facility] 11-26-2023 Note Date of Service November 26, 2023 Subjective The patient was sitting in bed upon examination. Patient denies any chest pain, shortness of breath, dizziness, lightheadedness, nausea or vomiting, or calf pain. No adverse overnight events. Pain has been controlled on medications. Patient states she is doing very well this morning. She states she is doing better than what she thought she would be doing. There was concern postoperatively about patient going home. She states she has her sister who will be residing with her for as long as needed. Patient is wishing to go home today. She has not been assessed by physical therapy today. Objective Vitals and Measurements T: 36.3 C (Oral) TMIN: 36.2 C (Temporal Artery) TMAX: 36.7 C (Oral) HR: 66(Monitored) RR: 16 BP: 121/52 SpO2: 93% HT: 160 cm WT: 59.1 kg BMI: 23.09 Intake and Output 7AM Yesterday to 7AM Today Intake and Output (Last 24 hours) Intake Administration Information 631.56 Supplement Intake 260.00 Output Intra-Op EBL 300.00 Urine Count 5.00 Total Summary Total Intake 891.56 Total Output 300.00 Fluid Balance 591.56 Physical Exam Vital signs stable, afebrile SCDs and KANE hose are in place bilaterally Right hip is soft and supple Patient is able to plantarflex and dorsiflex actively Sensation is intact to saphenous, sural, superficial and deep peroneal, and tibial distribution Dressing is clean dry and intact Negative signs and symptoms of DVT, negative Homans bilaterally Weight Dosing Weight: 59.1 kg (11/25/23) Dosing Weight: 59.1 kg (11/25/23) Medications Medications (25) Active Scheduled: (14) acetaminophen 500 mg Tablet 1,000 mg 2 tab(s), Oral, q8h aspirin 81 mg Chewable 81 mg 1 tab(s), Oral, BIDM bisacodyl 5 mg EC tablet 10 mg 2 tab(s), Oral, Once docusate sodium 100 mg Capsule 100 mg 1 cap(s), Oral, BID docusate-senna (Senokot S) 50 mg-8.6 mg Tablet 2 tab(s), Oral, BID famotidine 20 mg tablet 20 mg 1 tab(s), Oral, qDay folic acid 1 mg tablet 2 mg 2 tab(s), Oral, qDay hydralazine 25 mg Tablet 25 mg 1 tab(s), Oral, BID lisinopril 20 mg tablet 40 mg 2 tab(s), Oral, qDay magnesium hydroxide 8% Suspension 30 mL UD 30 mL, Oral, Daily meloxicam 7.5 mg tablet 7.5 mg 1 tab(s), Oral, BIDM metoprolol succinate 50 mg ER tablet 100 mg 2 tab(s), Oral, qDay multivitamin (Myadec) with minerals Therapeutic Multiple Vitamins with Minerals Tablet 1 tab(s), Oral, qDayM tranexamic acid PMX 1 gram(s) 100 mL, IV Piggyback, AsDirected Continuous: (0) PRN: (11) acetaminophen 325 mg Tablet 650 mg 2 tab(s), Oral, q4h diphenhydramine 25 mg tablet 25 mg 1 tab(s), Oral, q6h diphenhyDRAMINE 50 mg/mL (1 mL) INJ 25 mg 0.5 mL, IV Push, q6h ketorolac 30 mg/mL (1 mL) vial 15 mg 0.5 mL, IV Push, q6h melatonin 3 mg tablet 6 mg 2 tab(s), Oral, qHS morphine 2 mg/mL 1 mL syringe 2 mg 1 mL, IV Push, q1h ondansetron 2 mg/ 1 mL 2 mL INJ 4 mg 2 mL, IV Push, q8h oxycodone 5 mg tablet (immediate release) 5 mg 1 tab(s), Oral, q4h oxycodone 5 mg tablet (immediate release) 10 mg 2 tab(s), Oral, q4h prochlorperazine 10 mg/2 mL vial 5 mg 1 mL, IV Push, q6h sodium biphosphate-sodium phosphate 19 gm-7 gm Enema 133 mL, Rectal, qDay Lab Results 11/26 05:06 WBC: 14.7 H Hgb: 10.1 L Hct: 29.4 L Platelet: 267 Neutrophil %: 85.8 H Glucose Level: 102 Sodium Level: 135 L Potassium Level: 4.4 BUN: 22 H Creatinine Lvl (s): 0.87 EKG No qualifying data available. Assessment/Plan HTN (hypertension) Osteoarthritis 1. Status post right direct anterior total hip arthroplasty postop day #1 2. Continue pain medications: Tylenol, meloxicam, oxycodone. Do not take any other nonsteroidal anti-inflammatories while on meloxicam/Mobic 3. DVT prophylaxis: Take 81 mg aspirin twice daily with food for 4 weeks postoperatively for DVT prophylaxis. Patient denies past history of DVT or pulmonary embolism 4. Physical therapy: Weightbearing as tolerated with walker. Appreciate recommendations from therapy with regards to discharge planning today. 5. H & H: 10./29.4, asymptomatic. Postoperative anemia from surgery without intraoperative complications. At this time there is no need for treatment. 6. Reactive Leukocytosis: currently 14.7, afebrile. Patient did receive decadron intra-operatively. No clinical signs of infection. 7. Encouraged incentive spirometry 8. Continue postoperative medical management per medicine: Case was discussed with medicine 9. Postoperative constipation: Discussed with the patient to continue stool softener until first bowel movement. After first bowel movement patient can then take as needed. They were also instructed that if they are not able to have a bowel movement within 3 days they are to contact our office for change of medication. Patient voiced understanding. 10. Disposition: Plan will be for possible discharge home today as long as patient is medically stable and tolerates therapy with pain well-controlled. I would like recommendations from physical therapy with regards to discharge planning with home health versus outpatient physical therapy. Patient would like her prescriptions E scribed to [facility] in [facility]. She will need to be set up for therapy dependent upon recommendations. Patient will follow-up per postoperative instructions. If patient does get discharged home today she will contact our office with any concerns or questions. She has been instructed to not proceed with any of her Orencia for 5 weeks postoperatively. I have reviewed the [place] Automated Rx Reporting System (OARRS) report for this patient for refill pattern and other prescriber involvement as part of the appropriate surveillance for the provision of acute and chronic controlled medications. The report was requested and reviewed on the date of this entry, and was considered in the prescribing process This dictation was created using voice recognition software. Phonetic and/or grammatical errors may exist. Rheumatoid arthritis Digitally Signed by JAGDEEP HOFFMAN PA-C on 11/26/2023 08:[address] [facility] 11-25-2023 Note ORIGINAL Images acquired, not reported on this accession number. [facility] 11-25-2023 Note ORIGINAL EXAMINATION: XRAY VIEWS OF THE RIGHT HIP11/25/2023 3:08 pm HIP UNILATERAL MIN 4V W/PELVIS RIGHT COMPARISON: None HISTORY: ORDERING SYSTEM PROVIDED HISTORY: Reason for Exam: Status Post Arthroplasty FINDINGS: The patient is status post total noncemented right hip arthroplasty with no complicating process. 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 Iliac and pubic bones are intact. No gross sacral or sacroiliac joint abnormality is noted. 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 Interpreted by: Michael Loja Preliminary Report By: Michael Loja Electronically signed By Michael Loja Dictated Date: 11/25/2023 3:22:25 PM Prelim Date: 11/25/2023 3:23:12 PM Sign Date: 11/25/2023 3:23:12 PM Ordering Provider: AMADOR GLORIA [facility] 11-25-2023 Anesthesiology Consult note Patient: TRES RAMIRES Age: 83 years Sex: Female : 1940 Associated Diagnoses: None Author: BRO HIGGINS APRN-KANCHAN Preoperative Information Time of last food or liquid consumption: 11/25/2023 00:00:00 Anesthesia history Patient's history: negative. Family's history: negative. Review of Systems Ear/Nose/Mouth/Throat: Negative. Respiratory: Negative. Cardiovascular: htn. Gastrointestinal: Negative. Genitourinary: Negative. Endocrine: Negative. Musculoskeletal: OA, RA. Integumentary: Negative. Neurologic: Negative. Health Status Allergies: Allergic Reactions (Selected) No Known Medication Allergies, Allergies (1) ActiveReaction No Known Medication AllergiesNone Documented Current medications: (Selected) Inpatient Medications Ordered LR 1,000 mL: 20 mL/hr, Intravenous, Stop: 11/25/23 23:59:00 EST tranexamic acid 1 g / 100 mL 0.7% NaCl PMX: 1 gram(s), 100 mL, 300 mL/hr, IV Piggyback, AsDirected Documented Medications Documented Metoprolol Succinate ER 100 mg oral TABLET extended release: 100 mg, 1 tab(s), Oral, qDay, 30 tab(s), 0 Refill(s) folic acid 1 mg oral tablet: 2 mg, 2 tab(s), Oral, qDay, 30 tab(s), 0 Refill(s) hydrALAZINE 25 mg oral tablet: 25 mg, 1 tab(s), Oral, BID, 60 tab(s), 0 Refill(s) methotrexate 2.5 mg oral tablet: 2.5 mg, 1 tab(s), Oral, qWeek, 4 tab(s), 0 Refill(s) ramipril 10 mg oral capsule: 10 mg, 1 cap(s), Oral, Daily, 100 cap(s), 0 Refill(s), Medications (2) Active Scheduled: (1) tranexamic acid PMX 1 gram(s) 100 mL, IV Piggyback, AsDirected Continuous: (1) Lactated Ringers 1,000 mL 1,000 mL, Intravenous, 20 mL/hr PRN: (0) Problem list: Active Problems (4) Crohns disease of small intestine HTN (hypertension) Osteoarthritis Rheumatoid arthritis Histories Past Medical History: No active or resolved past medical history items have been selected or recorded. Family History: No family history items have been selected or recorded. Procedure history: Hysterectomy ([id number]). Tonsillectomy with adenoidectomy ([id number]). Cataracts ([id number]). Comments: 11/04/2023 11:43 EST - Brionna Garibay RN BILATERAL Colonoscopy ([id number]). Social History Social & Psychosocial Habits Alcohol 11/04/2023 Use: Never Substance Abuse 11/04/2023 Use: Never Tobacco 11/04/2023 Tobacco Use: Never (less than 100 in l . Physical Examination Vital Signs 11/25/2023 13:25 EST Heart Rate Monitored 55 bpm bpm Respiratory Rate - Anes 8 br/min br/min Systolic Blood Pressure Non-Invasive 104 mmHg mmHg Diastolic Blood Pressure Non-Invasive 57 mmHg mmHg 11/25/2023 13:20 EST Heart Rate Monitored 59 bpm bpm Respiratory Rate - Anes 10 br/min br/min Systolic Blood Pressure Non-Invasive 95 mmHg mmHg Diastolic Blood Pressure Non-Invasive 57 mmHg mmHg 11/25/2023 13:15 EST Heart Rate Monitored 62 bpm bpm Respiratory Rate - Anes 0 br/min br/min Systolic Blood Pressure Non-Invasive 139 mmHg mmHg Diastolic Blood Pressure Non-Invasive 63 mmHg mmHg 11/25/2023 13:13 EST Systolic Blood Pressure Non-Invasive 148 mmHg mmHg Diastolic Blood Pressure Non-Invasive 66 mmHg mmHg 11/25/2023 13:10 EST Respiratory Rate - Anes 0 br/min br/min Systolic Blood Pressure Non-Invasive 137 mmHg mmHg Diastolic Blood Pressure Non-Invasive 72 mmHg mmHg 11/25/2023 13:05 EST Respiratory Rate - Anes 0 br/min br/min Systolic Blood Pressure Non-Invasive 150 mmHg mmHg Diastolic Blood Pressure Non-Invasive 69 mmHg mmHg 11/25/2023 13:03 EST Systolic Blood Pressure Non-Invasive 177 mmHg mmHg Diastolic Blood Pressure Non-Invasive 72 mmHg mmHg 11/25/2023 10:55 EST Temperature Temporal Artery 36.6 DegC Apical Heart Rate 55 bpm LOW Respiratory Rate 17 br/min Systolic Blood Pressure Non-Invasive 110 mmHg Diastolic Blood Pressure Non-Invasive 76 mmHg Vital Signs(last 24 hrs) Last Charted Heart Rate [id number] bpm (NOV 25 13:25) QZT389 mmHg (NOV 25 13:25) DBP57 mmHg (NOV 25 13:25) BMI23.09 (NOV 25 11:08) Measurements from flowsheet : Measurements 11/25/2023 11:08 EST Body Mass Index 23.09 kg/m2 11/25/2023 10:55 EST Height 160 cm Height in inches 63 inch(es) Admission Weight 59.1 kg Broad Top Body Weight 52.38 kg Admission Body Mass Index 23.09 m2 Pain assessment: Pain Assessment 11/25/2023 13:07 EST Primary Pain Intensity Not Done: See OR Record (Not Done) Primary Pain Intensity Not Done: See OR Record (Not Done) 11/25/2023 10:55 EST Primary Pain Intensity 0 Pain Scale Type 0-10 Pain scale . General: Alert and oriented. Airway: Normal temporomandibular joint mobility. Mallampati classification: II (soft palate, fauces, uvula visible). Head: Normocephalic. Dentition Evaluation: Own teeth. Neck: Supple. Respiratory: Lungs are clear to auscultation. Cardiovascular: Normal rate. Heart Sounds: Normal. Gastrointestinal: Soft. Musculoskeletal Normal range of motion. Integumentary: Intact. Neurologic: Alert, Oriented. Review / Management Results review: No qualifying data available , Lab results 11/25/2023 13:32 EST SN - DRS - Site and Details RIGHT ANTERIOR HIP 11/25/2023 13:31 EST SN - CTm - Surgery Start 11/25/2023 13:31 11/25/2023 13:31 EST SN - Proc - Anesthesia Type General SN - Proc - Actual Procedure ANTERIOR RIGHT TOTAL HIP ARTHROPLASTY 11/25/2023 13:25 EST Heart Rate Monitored 55 bpm bpm Respiratory Rate - Anes 8 br/min br/min Systolic Blood Pressure Non-Invasive 104 mmHg mmHg Diastolic Blood Pressure Non-Invasive 57 mmHg mmHg Oxygen Saturation 98 % % 11/25/2023 13:21 EST tranexamic acid 1 gram(s) gram(s) 11/25/2023 13:20 EST Heart Rate Monitored 59 bpm bpm Respiratory Rate - Anes 10 br/min br/min Systolic Blood Pressure Non-Invasive 95 mmHg mmHg Diastolic Blood Pressure Non-Invasive 57 mmHg mmHg Oxygen Saturation 98 % % dexAMETHasone 10 mg mg 11/25/2023 13:15 EST Heart Rate Monitored 62 bpm bpm Respiratory Rate - Anes 0 br/min br/min Systolic Blood Pressure Non-Invasive 139 mmHg mmHg Diastolic Blood Pressure Non-Invasive 63 mmHg mmHg Oxygen Saturation 91 % % 11/25/2023 13:13 EST Systolic Blood Pressure Non-Invasive 148 mmHg mmHg Diastolic Blood Pressure Non-Invasive 66 mmHg mmHg 11/25/2023 13:10 EST SN - Cul - Culture Type No Specimen per Surgeon 11/25/2023 13:10 EST Respiratory Rate - Anes 0 br/min br/min Systolic Blood Pressure Non-Invasive 137 mmHg mmHg Diastolic Blood Pressure Non-Invasive 72 mmHg mmHg 11/25/2023 13:09 EST SN - CAt - Case Attendee SN - CAt - Case Attendee SN - CAt - Case Attendee SN - CAt - Case Attendee SN - CAt - Case Attendee SN - CAt - Case Attendee SN - CAt - Case Attendee SN - CAt - Case Attendee SN - CAt - Case Attendee SN - CAt - Case Attendee SN - CAt - Case Attendee SN - CAt - Case Attendee SN - CAt - Case Attendee SN - CAt - Case Attendee SN - CAt - Role Performed Primary Surgeon SN - CAt - Role Performed Physician Oracle Software Engineer SN - CAt - Role Performed DIVISION CHAIR SN - CAt - Role Performed [place] Worker 1 SN - CAt - Role Performed Scrub 1 SN - CAt - Role Performed Custom Car Builder 1 SN - CAt - Role Performed X-Ray Tech 11/25/2023 13:07 EST Primary Pain Intensity Not Done: See OR Record (Not Done) Primary Pain Intensity Not Done: See OR Record (Not Done) epinephrine Not Done: See OR Record (Not Done) epinephrine Not Done: See OR Record (Not Done) ketorolac Not Done: See OR Record (Not Done) ketorolac Not Done: See OR Record (Not Done) morphine Not Done: See OR Record (Not Done) morphine Not Done: See OR Record (Not Done) ROPivacaine Not Done: See OR Record (Not Done) ROPivacaine Not Done: See OR Record (Not Done) 11/25/2023 13:05 EST Respiratory Rate - Anes 0 br/min br/min Systolic Blood Pressure Non-Invasive 150 mmHg mmHg Diastolic Blood Pressure Non-Invasive 69 mmHg mmHg povidone iodine topical Not Done: See OR Record (Not Done) 11/25/2023 13:03 EST Systolic Blood Pressure Non-Invasive 177 mmHg mmHg Diastolic Blood Pressure Non-Invasive 72 mmHg mmHg 11/25/2023 13:00 EST SN - CTm - Anesthesia Start Time Anesthesia Start cefazolin 2 gram(s) gram(s) Sodium Chloride 0.9% 100 mL mL 11/25/2023 11:26 EST SN - Preop - CTm Pt Ready for OR/Proced 11/25/2023 11:25 11/25/2023 11:14 EST citric acid-sodium citrate Not Given: Other (Not Done) 11/25/2023 11:11 EST celecoxib 400 mg mg Lactated Ringers Injection 1,000 mL mL 11/25/2023 11:10 EST famotidine 20 mg mg 11/25/2023 11:08 EST Designated Person #1 We May Share JUAN DE LA CRUZ [phone] Designated Person #1 Relationship Sibling Privacy Restrictions Requested None Body Mass Index 23.09 kg/m2 Status N/A Sensory Deficits None Sleep Apnea Snore No Sleep Apnea Tired Yes Sleep Apnea Obstruction No Sleep Apnea Pressure Yes Sleep Apnea BMI No Sleep Apnea Age Yes Sleep Apnea Neck No Sleep Apnea Gender No Sleep Apnea Score 3 Diagnosed With Sleep Apnea No Advanced Directives Yes Advance Directive Type [place] Declaration (Living Will) Advance Directive Location Unable to obtain copy Infectious Disease Symptoms Patient states no symptoms Infectious Disease Recent Exposure No Alcohol and Drug Use No Employee of Institutional Living No Health Care Employee No History of Exposure to TB No History of Positive Chest X-Ray for TB No History of Positive TB Skin Test No Homeless No Known Immunosuppression No Recent Immigrant No Resident of Institutional Living No Bloody Sputum No Fatigue No Fever No Loss of Appetite No Night Sweats No Persistent Cough > 3 Weeks No Weight Loss No Patient Aware Date/Time Of Surgery Yes Previous Surgery At This Facility No Pre-Op Patient Education NPO after midnight, No makeup, No jewelry, Responsible Libertarian, Aware of surgery location, Pre-op education done, 1 bottle CHG wash with instructions given, Instructed to take ordered medications, Total Joint Replacement/Colorectal Book Given, SSI prevention handout given SN - Preprocedure Comments Spoke with patient, Verbalizes/Nonverbally indicates understanding, Other: metoprolol. altace Barriers to Learning None evident Teaching Method Explanation Preferred Spoken Language Urdu Preferred Written Language Urdu Teaching Evaluation Needs further teaching Total Joint Book Given Yes Safety Brochure Information Reviewed Unable to complete Luis Miguel Dave Video Viewed No Information Given by Patient Patient's Current Physicians Patient's Current Physicians Discharge To, Anticipated Home independently Prev Test Positive/Diagnosis w/COVID-19 No Current Quarantine/Isolated any Illness No Any Contact with Sick Animals/Birds No Traveled Anywhere in Last 30 Days No Lost Weight Unintentionally Recently No Eat Poorly Due to Decreased Appetite No Total MST Score 0 N/A Personal Devices, Patient Valuables Glasses Anesthesia/Transfusions Prior anesthesia Admission Note-Nursing Same Day Patient History 11/25/2023 11:06 EST Continuous IV Infusions LR Antecubital Left 11/25/2023 20 gauge Peripheral IV Activity: Insert new site Peripheral IV Dressing Condition: Clean, Dry, Intact Peripheral IV Dressing Activity: Applied, Transparent dressing Peripheral IV Line Status/Patency: Continuous infusion Peripheral IV Line Care: Secured with tape Peripheral IV Site Condition: No complications Peripheral IV Equipment: Extension set Peripheral IV Number of Attempts: 1 11/25/2023 10:55 EST Height 160 cm Height in inches 63 inch(es) Admission Weight 59.1 kg Broad Top Body Weight 52.38 kg Admission Body Mass Index 23.09 m2 Temperature Temporal Artery 36.6 DegC Apical Heart Rate 55 bpm LOW Respiratory Rate 17 br/min Systolic Blood Pressure Non-Invasive 110 mmHg Diastolic Blood Pressure Non-Invasive 76 mmHg Primary Pain Intensity 0 Pain Scale Type 0-10 Pain scale Heart Sounds ICU [id number] Heart Rhythm Regular Dorsalis Pedis Pulse, Left 2+ Normal Dorsalis Pedis Pulse, Right 2+ Normal Respirations Unlabored All Lobes Breath Sounds Clear, Diminished Oxygen Therapy Room air Oxygen Saturation 96 % Abdomen Description Non-distended Bowel Sounds All Quadrants Present Skin Temperature Warm Skin Description [place], Dry Skin Integrity Intact Mucous Membrane Color [place] Skin Moisture General Dry Extremity Movement Equal Characteristics of Speech Clear Level of Consciousness Alert Strength All Extremities Moderate Tone All Extremities Normal Sensation All Extremities Intact Affect/Behavior Appropriate, Calm, Cooperative Orientation Oriented x 4 Patient Identified Identification band, Verbal Arrival Mode Ambulatory Esteban Motor (2) Moves 4 extremities voluntarily or on command Esteban Respirations (2) Spontaneous respiration without support, RR > 10 Esteban Blood Pressure (2) BP 20% above or below preanesthetic level Esteban Pulse (2) Pulse 20% above or below preanesthetic level Esteban Oxygen Saturation (2) 94% or more Esteban Level of Consciousness (2) Fully awake Esteban III Score 12 Standard Safety ID band on, Call device within reach, Bed in low position, Wheels locked, Non-Slip footwear 11/25/2023 10:45 EST Urinary Elimination Voiding, no difficulties Allergies No Anesthesia Extension Set Applied Yes Oil Burner Repairer On Yes Consent Form Signed Yes Patient Dressed In Hospital gown Pre-op Preparation Glasses removed, Undergarments removed CHG Preoperative Wash/Wipe Night before procedure, Day of procedure Preop Nasal Swab Povidone-Iodine CHG Skin Prep Completed for Eligible Surgery History & Physical Update On Chart Yes History & Physical On Chart Yes Obstructive Sleep Apnea Assess Completed No Belongings At Bedside Bra, Glasses, Pants, Shirt, Shoes, Socks, Undergarments Personal Home Medications Received No home medications were brought in Belongings Sent Home None Belongings to Security/Secured in Dept None Allergy Band on and Verified No Blood Band on and Verified No Patient ID Band on and Verified Yes Implants Verified Yes Pacemaker/AICD Verified Yes Site Verified by Patient/Family Yes Anesthesia Consent Signed Yes Blood Consent Signed Yes Last Fluid Intake 11/24/2023 23:45 Last Food Intake 11/24/2023 21:00 Patient Cleared for Surgery By JO MORIN MD 11/25/2023 10:23 EST SN - Preop - CTm Pt in SDS Room 11/25/2023 10:20 11/24/2023 13:58 EST CSummary CSUMMARY . Assessment and Plan [place] [employer] (ASA) physical status classification: Class II. Anesthetic Preoperative Plan Premedication: intravenous. Anesthetic technique: Spinal. Induction: intravenously. Maintenance airway: 40% FM. Postoperative pain management: Per surgeon. Informed consent: signed by patient. Digitally Signed by BRO HIGGINS on 11/25/2023 01:[address] [facility] Evaluation + Plan note Future Appointments Appointment Date:11/28/2023 10:30:00 AM Scheduled Provider: Location:LOC[facility] WITHIN [facility] Appointment Type:PT Outpatient Evaluation [facility] Evaluation note No assessment inform ation available [facility] Work Phone: Evaluation note Diagnosis Onset Date Encounter for screening for other viral diseases acute [facility] Work Phone: Hospital course Narrative No data available for this section [facility] Hospital Discharge instructions No data available for this section [facility] Instructions* Name Dates Details How to Access Health Informa tion Online using Patient Portal and 3rd Libertarian Apps Indication:Non-smoker Start:25-Oct-2020 Instruction Type:Patient Education Patient Instructions Indication:Non-smoker Start:25-Oct-2020 Instruction Type:Provider Instructions for Treatment How to Access Health Informa tion Online using Patient Portal and 3rd Libertarian Apps Indication:Non-smoker Start:18-Oct-2020 Instruction Type:Patient Education Patient Instructions Indication:Non-smoker Start:18-Oct-2020 Instruction Type:Provider Instructions for Treatment How to access health informa tion online Indication:BMI 22.0-22.9, adult Start:20-Aug-2019 Instruction Type:Patient Education How to access health informa tion online - Detail Indication:BMI 22.0-22.9, adult Start:20-Aug-2019 Instruction Type:Patient Education Patient Instructions Indication:BMI 22.0-22.9, adult Start:20-Aug-2019 Instruction Type:Provider Instructions for Treatment How to access health informa tion online Indication:Benign essential hypertension Start:17-Jul-2018 Instruction Type:Patient Education How to access health informa tion online - Detail Indication:Benign essential hypertension Start:17-Jul-2018 Instruction Type:Patient Education Patient Instructions Indication:Benign essential hypertension Start:17-Jul-2018 Instruction Type:Provider Instructions for Treatment How to access health informa tion online Indication:Non-smoker Start:04-Jun-2017 Instruction Type:Patient Education How to access health informa tion online - Detail Indication:Non-smoker Start:04-Jun-2017 Instruction Type:Patient Education Patient Instructions Indication:Non-smoker Start:04-Jun-2017 Instruction Type:Provider Instructions for Treatment Patient Instructions Indication:Benign essential hypertension Start:07-Jun-2016 Instruction Type:Provider Instructions for Treatment How to access health informa tion online Indication:Encounter for Medicare annual wellness exam Start:07-Jun-2015 Instruction Type:Patient Education How to access health informa tion online - Detail Indication:Encounter for Medicare annual wellness exam Start:07-Jun-2015 Instruction Type:Patient Education Patient Instructions Indication:Encounter for Medicare annual wellness exam Start:07-Jun-2015 Instruction Type:Provider Instructions for Treatment How to access health informa tion online Indication:Benign essential hypertension Start:17-May-2015 Instruction Type:Patient Education How to access health informa tion online - Detail Indication:Benign essential hypertension Start:17-May-2015 Instruction Type:Patient Education [facility] Work Phone: Instructions* Name Dates Details How to Access Health Informa tion Online using Patient Portal and 3rd Libertarian Apps Indication:Non-smoker Start:30-Mar-2021 Instruction Type:Patient Education Patient Instructions Indication:Non-smoker Start:30-Mar-2021 Instruction Type:Provider Instructions for Treatment How to Access Health Informa tion Online using Patient Portal and [employer] Apps Indication:Non-smoker Start:25-Oct-2020 Instruction Type:Patient Education Patient Instructions Indication:Non-smoker Start:25-Oct-2020 Instruction Type:Provider Instructions for Treatment How to Access Health Informa tion Online using Patient Portal and [employer] Apps Indication:Non-smoker Start:18-Oct-2020 Instruction Type:Patient Education Patient Instructions Indication:Non-smoker Start:18-Oct-2020 Instruction Type:Provider Instructions for Treatment How to access health informa tion online Indication:BMI 22.0-22.9, adult Start:20-Aug-2019 Instruction Type:Patient Education How to access health informa tion online - Detail Indication:BMI 22.0-22.9, adult Start:20-Aug-2019 Instruction Type:Patient Education Patient Instructions Indication:BMI 22.0-22.9, adult Start:20-Aug-2019 Instruction Type:Provider Instructions for Treatment How to access health informa tion online Indication:Benign essential hypertension Start:17-Jul-2018 Instruction Type:Patient Education How to access health informa tion online - Detail Indication:Benign essential hypertension Start:17-Jul-2018 Instruction Type:Patient Education Patient Instructions Indication:Benign essential hypertension Start:17-Jul-2018 Instruction Type:Provider Instructions for Treatment How to access health informa tion online Indication:Non-smoker Start:04-Jun-2017 Instruction Type:Patient Education How to access health informa tion online - Detail Indication:Non-smoker Start:04-Jun-2017 Instruction Type:Patient Education Patient Instructions Indication:Non-smoker Start:04-Jun-2017 Instruction Type:Provider Instructions for Treatment Patient Instructions Indication:Benign essential hypertension Start:07-Jun-2016 Instruction Type:Provider Instructions for Treatment How to access health informa tion online Indication:Encounter for Medicare annual wellness exam Start:07-Jun-2015 Instruction Type:Patient Education How to access health informa tion online - Detail Indication:Encounter for Medicare annual wellness exam Start:07-Jun-2015 Instruction Type:Patient Education Patient Instructions Indication:Encounter for Medicare annual wellness exam Start:07-Jun-2015 Instruction Type:Provider Instructions for Treatment How to access health informa tion online Indication:Benign essential hypertension Start:17-May-2015 Instruction Type:Patient Education How to access health informa tion online - Detail Indication:Benign essential hypertension Start:17-May-2015 Instruction Type:Patient Education [facility]; [facility] Work Phone: Instructions* Name Dates Details How to Access Health Informa tion Online using Patient Portal and 3rd Libertarian Apps Indication:Non-smoker Start:30-Mar-2021 Instruction Type:Patient Education Patient Instructions Indication:Non-smoker Start:30-Mar-2021 Instruction Type:Provider Instructions for Treatment How to Access Health Informa tion Online using Patient Portal and 3rd Libertarian Apps Indication:Non-smoker Start:25-Oct-2020 Instruction Type:Patient Education Patient Instructions Indication:Non-smoker Start:25-Oct-2020 Instruction Type:Provider Instructions for Treatment How to Access Health Informa tion Online using Patient Portal and 3rd Libertarian Apps Indication:Non-smoker Start:18-Oct-2020 Instruction Type:Patient Education Patient Instructions Indication:Non-smoker Start:18-Oct-2020 Instruction Type:Provider Instructions for Treatment How to access health informa tion online Indication:BMI 22.0-22.9, adult Start:20-Aug-2019 Instruction Type:Patient Education How to access health informa tion online - Detail Indication:BMI 22.0-22.9, adult Start:20-Aug-2019 Instruction Type:Patient Education Patient Instructions Indication:BMI 22.0-22.9, adult Start:20-Aug-2019 Instruction Type:Provider Instructions for Treatment How to access health informa tion online Indication:Benign essential hypertension Start:17-Jul-2018 Instruction Type:Patient Education How to access health informa tion online - Detail Indication:Benign essential hypertension Start:17-Jul-2018 Instruction Type:Patient Education Patient Instructions Indication:Benign essential hypertension Start:17-Jul-2018 Instruction Type:Provider Instructions for Treatment How to access health informa tion online Indication:Non-smoker Start:04-Jun-2017 Instruction Type:Patient Education How to access health informa tion online - Detail Indication:Non-smoker Start:04-Jun-2017 Instruction Type:Patient Education Patient Instructions Indication:Non-smoker Start:04-Jun-2017 Instruction Type:Provider Instructions for Treatment Patient Instructions Indication:Benign essential hypertension Start:07-Jun-2016 Instruction Type:Provider Instructions for Treatment How to access health informa tion online Indication:Encounter for Medicare annual wellness exam Start:07-Jun-2015 Instruction Type:Patient Education How to access health informa tion online - Detail Indication:Encounter for Medicare annual wellness exam Start:07-Jun-2015 Instruction Type:Patient Education Patient Instructions Indication:Encounter for Medicare annual wellness exam Start:07-Jun-2015 Instruction Type:Provider Instructions for Treatment How to access health informa tion online Indication:Benign essential hypertension Start:17-May-2015 Instruction Type:Patient Education How to access health informa tion online - Detail Indication:Benign essential hypertension Start:17-May-2015 Instruction Type:Patient Education [facility]; [facility] Work Phone: Instructions* Name Dates Details How to Access Health Informa tion Online using Patient Portal and 3rd Libertarian Apps Indication:Non-smoker Start:30-Mar-2021 Instruction Type:Patient Education Patient Instructions Indication:Non-smoker Start:30-Mar-2021 Instruction Type:Provider Instructions for Treatment How to Access Health Informa tion Online using Patient Portal and 3rd Libert[employer] Apps Indication:Non-smoker Start:25-Oct-2020 Instruction Type:Patient Education Patient Instructions Indication:Non-smoker Start:25-Oct-2020 Instruction Type:Provider Instructions for Treatment How to Access Health Informa tion Online using Patient Portal and 3rd Libert[employer] Apps Indication:Non-smoker Start:18-Oct-2020 Instruction Type:Patient Education Patient Instructions Indication:Non-smoker Start:18-Oct-2020 Instruction Type:Provider Instructions for Treatment How to access health informa tion online Indication:BMI 22.0-22.9, adult Start:20-Aug-2019 Instruction Type:Patient Education How to access health informa tion online - Detail Indication:BMI 22.0-22.9, adult Start:20-Aug-2019 Instruction Type:Patient Education Patient Instructions Indication:BMI 22.0-22.9, adult Start:20-Aug-2019 Instruction Type:Provider Instructions for Treatment How to access health informa tion online Indication:Benign essential hypertension Start:17-Jul-2018 Instruction Type:Patient Education How to access health informa tion online - Detail Indication:Benign essential hypertension Start:17-Jul-2018 Instruction Type:Patient Education Patient Instructions Indication:Benign essential hypertension Start:17-Jul-2018 Instruction Type:Provider Instructions for Treatment How to access health informa tion online Indication:Non-smoker Start:04-Jun-2017 Instruction Type:Patient Education How to access health informa tion online - Detail Indication:Non-smoker Start:04-Jun-2017 Instruction Type:Patient Education Patient Instructions Indication:Non-smoker Start:04-Jun-2017 Instruction Type:Provider Instructions for Treatment Patient Instructions Indication:Benign essential hypertension Start:07-Jun-2016 Instruction Type:Provider Instructions for Treatment How to access health informa tion online Indication:Encounter for Medicare annual wellness exam Start:07-Jun-2015 Instruction Type:Patient Education How to access health informa tion online - Detail Indication:Encounter for Medicare annual wellness exam Start:07-Jun-2015 Instruction Type:Patient Education Patient Instructions Indication:Encounter for Medicare annual wellness exam Start:07-Jun-2015 Instruction Type:Provider Instructions for Treatment How to access health informa tion online Indication:Benign essential hypertension Start:17-May-2015 Instruction Type:Patient Education How to access health informa tion online - Detail Indication:Benign essential hypertension Start:17-May-2015 Instruction Type:Patient Education [facility]; [facility] Work Phone: Instructions* Name Dates Details How to Access Health Informa tion Online using Patient Portal and 3rd Libert[employer] Apps Indication:Non-smoker Start:05-Apr-2021 Instruction Type:Patient Education Patient Instructions Indication:Non-smoker Start:05-Apr-2021 Instruction Type:Provider Instructions for Treatment How to Access Health Informa tion Online using Patient Portal and 3rd [employer] Apps Indication:Non-smoker Start:30-Mar-2021 Instruction Type:Patient Education Patient Instructions Indication:Non-smoker Start:30-Mar-2021 Instruction Type:Provider Instructions for Treatment How to Access Health Informa tion Online using Patient Portal and 3rd Libert[employer] Apps Indication:Non-smoker Start:25-Oct-2020 Instruction Type:Patient Education Patient Instructions Indication:Non-smoker Start:25-Oct-2020 Instruction Type:Provider Instructions for Treatment How to Access Health Informa tion Online using Patient Portal and 3rd Libert[employer] Apps Indication:Non-smoker Start:18-Oct-2020 Instruction Type:Patient Education Patient Instructions Indication:Non-smoker Start:18-Oct-2020 Instruction Type:Provider Instructions for Treatment How to access health informa tion online Indication:BMI 22.0-22.9, adult Start:20-Aug-2019 Instruction Type:Patient Education How to access health informa tion online - Detail Indication:BMI 22.0-22.9, adult Start:20-Aug-2019 Instruction Type:Patient Education Patient Instructions Indication:BMI 22.0-22.9, adult Start:20-Aug-2019 Instruction Type:Provider Instructions for Treatment How to access health informa tion online Indication:Benign essential hypertension Start:17-Jul-2018 Instruction Type:Patient Education How to access health informa tion online - Detail Indication:Benign essential hypertension Start:17-Jul-2018 Instruction Type:Patient Education Patient Instructions Indication:Benign essential hypertension Start:17-Jul-2018 Instruction Type:Provider Instructions for Treatment How to access health informa tion online Indication:Non-smoker Start:04-Jun-2017 Instruction Type:Patient Education How to access health informa tion online - Detail Indication:Non-smoker Start:04-Jun-2017 Instruction Type:Patient Education Patient Instructions Indication:Non-smoker Start:04-Jun-2017 Instruction Type:Provider Instructions for Treatment Patient Instructions Indication:Benign essential hypertension Start:07-Jun-2016 Instruction Type:Provider Instructions for Treatment How to access health informa tion online Indication:Encounter for Medicare annual wellness exam Start:07-Jun-2015 Instruction Type:Patient Education How to access health informa tion online - Detail Indication:Encounter for Medicare annual wellness exam Start:07-Jun-2015 Instruction Type:Patient Education Patient Instructions Indication:Encounter for Medicare annual wellness exam Start:07-Jun-2015 Instruction Type:Provider Instructions for Treatment How to access health informa tion online Indication:Benign essential hypertension Start:17-May-2015 Instruction Type:Patient Education How to access health informa tion online - Detail Indication:Benign essential hypertension Start:17-May-2015 Instruction Type:Patient Education [facility]; [facility] Work Phone: Instructions* Name Dates Details How to Access Health Informa tion Online using Patient Portal and [employer]rd [employer] Apps Indication:Non-smoker Start:05-Apr-2021 Instruction Type:Patient Education Patient Instructions Indication:Non-smoker Start:05-Apr-2021 Instruction Type:Provider Instructions for Treatment How to Access Health Informa tion Online using Patient Portal and [employer]rd [employer] Apps Indication:Non-smoker Start:30-Mar-2021 Instruction Type:Patient Education Patient Instructions Indication:Non-smoker Start:30-Mar-2021 Instruction Type:Provider Instructions for Treatment How to Access Health Informa tion Online using Patient Portal and [employer]rd [employer] Apps Indication:Non-smoker Start:25-Oct-2020 Instruction Type:Patient Education Patient Instructions Indication:Non-smoker Start:25-Oct-2020 Instruction Type:Provider Instructions for Treatment How to Access Health Informa tion Online using Patient Portal and [employer]rd [employer] Apps Indication:Non-smoker Start:18-Oct-2020 Instruction Type:Patient Education Patient Instructions Indication:Non-smoker Start:18-Oct-2020 Instruction Type:Provider Instructions for Treatment How to access health informa tion online Indication:BMI 22.0-22.9, adult Start:20-Aug-2019 Instruction Type:Patient Education How to access health informa tion online - Detail Indication:BMI 22.0-22.9, adult Start:20-Aug-2019 Instruction Type:Patient Education Patient Instructions Indication:BMI 22.0-22.9, adult Start:20-Aug-2019 Instruction Type:Provider Instructions for Treatment How to access health informa tion online Indication:Benign essential hypertension Start:17-Jul-2018 Instruction Type:Patient Education How to access health informa tion online - Detail Indication:Benign essential hypertension Start:17-Jul-2018 Instruction Type:Patient Education Patient Instructions Indication:Benign essential hypertension Start:17-Jul-2018 Instruction Type:Provider Instructions for Treatment How to access health informa tion online Indication:Non-smoker Start:04-Jun-2017 Instruction Type:Patient Education How to access health informa tion online - Detail Indication:Non-smoker Start:04-Jun-2017 Instruction Type:Patient Education Patient Instructions Indication:Non-smoker Start:04-Jun-2017 Instruction Type:Provider Instructions for Treatment Patient Instructions Indication:Benign essential hypertension Start:07-Jun-2016 Instruction Type:Provider Instructions for Treatment How to access health informa tion online Indication:Encounter for Medicare annual wellness exam Start:07-Jun-2015 Instruction Type:Patient Education How to access health informa tion online - Detail Indication:Encounter for Medicare annual wellness exam Start:07-Jun-2015 Instruction Type:Patient Education Patient Instructions Indication:Encounter for Medicare annual wellness exam Start:07-Jun-2015 Instruction Type:Provider Instructions for Treatment How to access health informa tion online Indication:Benign essential hypertension Start:17-May-2015 Instruction Type:Patient Education How to access health informa tion online - Detail Indication:Benign essential hypertension Start:17-May-2015 Instruction Type:Patient Education [facility]; [facility] Work Phone: Instructions* Name Dates Details How to Access Health Informa tion Online using Patient Portal and [employer]rd [employer] Apps Indication:Non-smoker Start:05-Apr-2021 Instruction Type:Patient Education Patient Instructions Indication:Non-smoker Start:05-Apr-2021 Instruction Type:Provider Instructions for Treatment How to Access Health Informa tion Online using Patient Portal and [employer]rd [employer] Apps Indication:Non-smoker Start:30-Mar-2021 Instruction Type:Patient Education Patient Instructions Indication:Non-smoker Start:30-Mar-2021 Instruction Type:Provider Instructions for Treatment How to Access Health Informa tion Online using Patient Portal and [employer]rd [employer] Apps Indication:Non-smoker Start:25-Oct-2020 Instruction Type:Patient Education Patient Instructions Indication:Non-smoker Start:25-Oct-2020 Instruction Type:Provider Instructions for Treatment How to Access Health Informa tion Online using Patient Portal and [employer]rd [employer] Apps Indication:Non-smoker Start:18-Oct-2020 Instruction Type:Patient Education Patient Instructions Indication:Non-smoker Start:18-Oct-2020 Instruction Type:Provider Instructions for Treatment How to access health informa tion online Indication:BMI 22.0-22.9, adult Start:20-Aug-2019 Instruction Type:Patient Education How to access health informa tion online - Detail Indication:BMI 22.0-22.9, adult Start:20-Aug-2019 Instruction Type:Patient Education Patient Instructions Indication:BMI 22.0-22.9, adult Start:20-Aug-2019 Instruction Type:Provider Instructions for Treatment How to access health informa tion online Indication:Benign essential hypertension Start:17-Jul-2018 Instruction Type:Patient Education How to access health informa tion online - Detail Indication:Benign essential hypertension Start:17-Jul-2018 Instruction Type:Patient Education Patient Instructions Indication:Benign essential hypertension Start:17-Jul-2018 Instruction Type:Provider Instructions for Treatment How to access health informa tion online Indication:Non-smoker Start:04-Jun-2017 Instruction Type:Patient Education How to access health informa tion online - Detail Indication:Non-smoker Start:04-Jun-2017 Instruction Type:Patient Education Patient Instructions Indication:Non-smoker Start:04-Jun-2017 Instruction Type:Provider Instructions for Treatment Patient Instructions Indication:Benign essential hypertension Start:07-Jun-2016 Instruction Type:Provider Instructions for Treatment How to access health informa tion online Indication:Encounter for Medicare annual wellness exam Start:07-Jun-2015 Instruction Type:Patient Education How to access health informa tion online - Detail Indication:Encounter for Medicare annual wellness exam Start:07-Jun-2015 Instruction Type:Patient Education Patient Instructions Indication:Encounter for Medicare annual wellness exam Start:07-Jun-2015 Instruction Type:Provider Instructions for Treatment How to access health informa tion online Indication:Benign essential hypertension Start:17-May-2015 Instruction Type:Patient Education How to access health informa tion online - Detail Indication:Benign essential hypertension Start:17-May-2015 Instruction Type:Patient Education [facility]; [facility] Work Phone: Instructions* Name Dates Details How to Access Health Informa tion Online using Patient Portal and [employer]rd [employer] Apps Indication:Non-smoker Start:05-Apr-2021 Instruction Type:Patient Education Patient Instructions Indication:Non-smoker Start:05-Apr-2021 Instruction Type:Provider Instructions for Treatment How to Access Health Informa tion Online using Patient Portal and [employer] Apps Indication:Non-smoker Start:30-Mar-2021 Instruction Type:Patient Education Patient Instructions Indication:Non-smoker Start:30-Mar-2021 Instruction Type:Provider Instructions for Treatment How to Access Health Informa tion Online using Patient Portal and [employer] Apps Indication:Non-smoker Start:25-Oct-2020 Instruction Type:Patient Education Patient Instructions Indication:Non-smoker Start:25-Oct-2020 Instruction Type:Provider Instructions for Treatment How to Access Health Informa tion Online using Patient Portal and [employer] Indication:Non-smoker Start:18-Oct-2020 Instruction Type:Patient Education Patient Instructions Indication:Non-smoker Start:18-Oct-2020 Instruction Type:Provider Instructions for Treatment How to access health informa tion online Indication:BMI 22.0-22.9, adult Start:20-Aug-2019 Instruction Type:Patient Education How to access health informa tion online - Detail Indication:BMI 22.0-22.9, adult Start:20-Aug-2019 Instruction Type:Patient Education Patient Instructions Indication:BMI 22.0-22.9, adult Start:20-Aug-2019 Instruction Type:Provider Instructions for Treatment How to access health informa tion online Indication:Benign essential hypertension Start:17-Jul-2018 Instruction Type:Patient Education How to access health informa tion online - Detail Indication:Benign essential hypertension Start:17-Jul-2018 Instruction Type:Patient Education Patient Instructions Indication:Benign essential hypertension Start:17-Jul-2018 Instruction Type:Provider Instructions for Treatment How to access health informa tion online Indication:Non-smoker Start:04-Jun-2017 Instruction Type:Patient Education How to access health informa tion online - Detail Indication:Non-smoker Start:04-Jun-2017 Instruction Type:Patient Education Patient Instructions Indication:Non-smoker Start:04-Jun-2017 Instruction Type:Provider Instructions for Treatment Patient Instructions Indication:Benign essential hypertension Start:07-Jun-2016 Instruction Type:Provider Instructions for Treatment How to access health informa tion online Indication:Encounter for Medicare annual wellness exam Start:07-Jun-2015 Instruction Type:Patient Education How to access health informa tion online - Detail Indication:Encounter for Medicare annual wellness exam Start:07-Jun-2015 Instruction Type:Patient Education Patient Instructions Indication:Encounter for Medicare annual wellness exam Start:07-Jun-2015 Instruction Type:Provider Instructions for Treatment How to access health informa tion online Indication:Benign essential hypertension Start:17-May-2015 Instruction Type:Patient Education How to access health informa tion online - Detail Indication:Benign essential hypertension Start:17-May-2015 Instruction Type:Patient Education [facility]; [facility] Work Phone: Instructions* Name Dates Details How to Access Health Informa tion Online using Patient Portal and [employer] Indication:Non-smoker Start:05-Apr-2021 Instruction Type:Patient Education Patient Instructions Indication:Non-smoker Start:05-Apr-2021 Instruction Type:Provider Instructions for Treatment How to Access Health Informa tion Online using Patient Portal and [employer] Indication:Non-smoker Start:30-Mar-2021 Instruction Type:Patient Education Patient Instructions Indication:Non-smoker Start:30-Mar-2021 Instruction Type:Provider Instructions for Treatment How to Access Health Informa tion Online using Patient Portal and [employer] Indication:Non-smoker Start:25-Oct-2020 Instruction Type:Patient Education Patient Instructions Indication:Non-smoker Start:25-Oct-2020 Instruction Type:Provider Instructions for Treatment How to Access Health Informa tion Online using Patient Portal and [employer] Indication:Non-smoker Start:18-Oct-2020 Instruction Type:Patient Education Patient Instructions Indication:Non-smoker Start:18-Oct-2020 Instruction Type:Provider Instructions for Treatment How to access health informa tion online Indication:BMI 22.0-22.9, adult Start:20-Aug-2019 Instruction Type:Patient Education How to access health informa tion online - Detail Indication:BMI 22.0-22.9, adult Start:20-Aug-2019 Instruction Type:Patient Education Patient Instructions Indication:BMI 22.0-22.9, adult Start:20-Aug-2019 Instruction Type:Provider Instructions for Treatment How to access health informa tion online Indication:Benign essential hypertension Start:17-Jul-2018 Instruction Type:Patient Education How to access health informa tion online - Detail Indication:Benign essential hypertension Start:17-Jul-2018 Instruction Type:Patient Education Patient Instructions Indication:Benign essential hypertension Start:17-Jul-2018 Instruction Type:Provider Instructions for Treatment How to access health informa tion online Indication:Non-smoker Start:04-Jun-2017 Instruction Type:Patient Education How to access health informa tion online - Detail Indication:Non-smoker Start:04-Jun-2017 Instruction Type:Patient Education Patient Instructions Indication:Non-smoker Start:04-Jun-2017 Instruction Type:Provider Instructions for Treatment Patient Instructions Indication:Benign essential hypertension Start:07-Jun-2016 Instruction Type:Provider Instructions for Treatment How to access health informa tion online Indication:Encounter for Medicare annual wellness exam Start:07-Jun-2015 Instruction Type:Patient Education How to access health informa tion online - Detail Indication:Encounter for Medicare annual wellness exam Start:07-Jun-2015 Instruction Type:Patient Education Patient Instructions Indication:Encounter for Medicare annual wellness exam Start:07-Jun-2015 Instruction Type:Provider Instructions for Treatment How to access health informa tion online Indication:Benign essential hypertension Start:17-May-2015 Instruction Type:Patient Education How to access health informa tion online - Detail Indication:Benign essential hypertension Start:17-May-2015 Instruction Type:Patient Education [facility]; [facility] Work Phone: Instructions* Name Dates Details How to Access Health Informa tion Online using Patient Portal and [employer] Indication:Non-smoker Start:05-Apr-2021 Instruction Type:Patient Education Patient Instructions Indication:Non-smoker Start:05-Apr-2021 Instruction Type:Provider Instructions for Treatment How to Access Health Informa tion Online using Patient Portal and [employer] Apps Indication:Non-smoker Start:30-Mar-2021 Instruction Type:Patient Education Patient Instructions Indication:Non-smoker Start:30-Mar-2021 Instruction Type:Provider Instructions for Treatment How to Access Health Informa tion Online using Patient Portal and [employer] Indication:Non-smoker Start:25-Oct-2020 Instruction Type:Patient Education Patient Instructions Indication:Non-smoker Start:25-Oct-2020 Instruction Type:Provider Instructions for Treatment How to Access Health Informa tion Online using Patient Portal and [employer] Indication:Non-smoker Start:18-Oct-2020 Instruction Type:Patient Education Patient Instructions Indication:Non-smoker Start:18-Oct-2020 Instruction Type:Provider Instructions for Treatment How to access health informa tion online Indication:BMI 22.0-22.9, adult Start:20-Aug-2019 Instruction Type:Patient Education How to access health informa tion online - Detail Indication:BMI 22.0-22.9, adult Start:20-Aug-2019 Instruction Type:Patient Education Patient Instructions Indication:BMI 22.0-22.9, adult Start:20-Aug-2019 Instruction Type:Provider Instructions for Treatment How to access health informa tion online Indication:Benign essential hypertension Start:17-Jul-2018 Instruction Type:Patient Education How to access health informa tion online - Detail Indication:Benign essential hypertension Start:17-Jul-2018 Instruction Type:Patient Education Patient Instructions Indication:Benign essential hypertension Start:17-Jul-2018 Instruction Type:Provider Instructions for Treatment How to access health informa tion online Indication:Non-smoker Start:04-Jun-2017 Instruction Type:Patient Education How to access health informa tion online - Detail Indication:Non-smoker Start:04-Jun-2017 Instruction Type:Patient Education Patient Instructions Indication:Non-smoker Start:04-Jun-2017 Instruction Type:Provider Instructions for Treatment Patient Instructions Indication:Benign essential hypertension Start:07-Jun-2016 Instruction Type:Provider Instructions for Treatment How to access health informa tion online Indication:Encounter for Medicare annual wellness exam Start:07-Jun-2015 Instruction Type:Patient Education How to access health informa tion online - Detail Indication:Encounter for Medicare annual wellness exam Start:07-Jun-2015 Instruction Type:Patient Education Patient Instructions Indication:Encounter for Medicare annual wellness exam Start:07-Jun-2015 Instruction Type:Provider Instructions for Treatment How to access health informa tion online Indication:Benign essential hypertension Start:17-May-2015 Instruction Type:Patient Education How to access health informa tion online - Detail Indication:Benign essential hypertension Start:17-May-2015 Instruction Type:Patient Education [facility]; [facility] Work Phone: progress note No data available for this section [facility] Reason for referral (narrative)No reason for [facility] Work Phone: Family History No Family History Records FoundUnknown Family Member Name Dates Details Father Comments:Bone Cancer - at 85 Status:Active Mother Comments:DM, CHF, Kidney [place] - at 75 Status:Active Unknown Family Member Name Dates Details Father Comments:Bone Cancer - at 85 Status:Active Mother Comments:DM, CHF, Kidney [place] - at 75 Status:Active Unknown Family Member Name Dates Details Father Comments:Bone Cancer - at 85 Status:Active Mother Comments:DM, CHF, Kidney [place] - at 75 Status:Active Unknown Family Member Name Dates Details Father Comments:Bone Cancer - at 85 Status:Active Mother Comments:DM, CHF, Kidney [place] - at 75 Status:Active Unknown Family Member Name Dates Details Father Comments:Bone Cancer - at 85 Status:Active Mother Comments:DM, CHF, Kidney [place] - at 75 Status:Active Unknown Family Member Name Dates Details Father Comments:Bone Cancer - at 85 Status:Active Mother Comments:DM, CHF, Kidney [place] - at 75 Status:Active Unknown Family Member Name Dates Details Father Comments:Bone Cancer - at 85 Status:Active Mother Comments:DM, CHF, Kidney [place] - at 75 Status:Active Unknown Family Member Name Dates Details Father Comments:Bone Cancer - at 85 Status:Active Mother Comments:DM, CHF, Kidney [place] - at 75 Status:Active Unknown Family Member Name Dates Details Father Comments:Bone Cancer - at 85 Status:Active Mother Comments:DM, CHF, Kidney [place] - at 75 Status:Active Unknown Family Member Name Dates Details Father Comments:Bone Cancer - at 85 Status:Active Mother Comments:DM, CHF, Kidney [place] - at 75 Status:Active Unknown Family Member Name Dates Details Father Comments:Bone Cancer - at 85 Status:Active Mother Comments:DM, CHF, Kidney [place] - at 75 Status:Active Unknown Family Member Name Dates Details Father Comments:Bone Cancer - at 85 Status:Active Mother Comments:DM, CHF, Kidney [place] - at 75 Status:Active Unknown Family Member Name Dates Details Father Comments:Bone Cancer - at 85 Status:Active Mother Comments:DM, CHF, Kidney [place] - at 75 Status:Active Unknown Family Member Name Dates Details Father Comments:Bone Cancer - at 85 Status:Active Mother Comments:DM, CHF, Kidney [place] - at 75 Status:Active Unknown Family Member Name Dates Details Father Comments:Bone Cancer - at 85 Status:Active Mother Comments:DM, CHF, Kidney [place] - at 75 Status:Active Unknown Family Member Name Dates Details Father Comments:Bone Cancer - at 85 Status:Active Mother Comments:DM, CHF, Kidney [place] - at 75 Status:Active Unknown Family Member Name Dates Details Father Comments:Bone Cancer - at 85 Status:Active Mother Comments:DM, CHF, Kidney [place] - at 75 Status:Active Unknown Family Member Name Dates Details Father Comments:Bone Cancer - at 85 Status:Active Mother Comments:DM, CHF, Kidney [place] - at 75 Status:Active Instructions Name Dates Details Benign essential hypertensio n : How to access health information online Indication:Benign essential hypertension Benign essential hypertensio n : How to access health information online - Detail Indication:Benign essential hypertension Benign essential hypertensio n : Patient Instructions Indication:Benign essential hypertension Non-smoker : How to access h ealth information online Indication:Non-smoker Non-smoker : How to access h ealth information online - Detail Indication:Non-smoker Non-smoker : Patient Instruc tions Indication:Non-smoker Encounter for Medicare annua l wellness exam : How to access health information online Indication:Encounter for Medicare annual wellness exam Encounter for Medicare annua l wellness exam : How to access health information online - Detail Indication:Encounter for Medicare annual wellness exam Encounter for Medicare annua l wellness exam : Patient Instructions Indication:Encounter for Medicare annual wellness exam Name Dates Details How to access health informa tion online Indication:Benign essential hypertension Start:17-Jul-2018 Instruction Type:Patient Education How to access health informa tion online - Detail Indication:Benign essential hypertension Start:17-Jul-2018 Instruction Type:Patient Education Patient Instructions Indication:Benign essential hypertension Start:17-Jul-2018 Instruction Type:Provider Instructions for Treatment How to access health informa tion online Indication:Non-smoker Start:04-Jun-2017 Instruction Type:Patient Education How to access health informa tion online - Detail Indication:Non-smoker Start:04-Jun-2017 Instruction Type:Patient Education Patient Instructions Indication:Non-smoker Start:04-Jun-2017 Instruction Type:Provider Instructions for Treatment Patient Instructions Indication:Benign essential hypertension Start:07-Jun-2016 Instruction Type:Provider Instructions for Treatment How to access health informa tion online Indication:Encounter for Medicare annual wellness exam Start:07-Jun-2015 Instruction Type:Patient Education How to access health informa tion online - Detail Indication:Encounter for Medicare annual wellness exam Start:07-Jun-2015 Instruction Type:Patient Education Patient Instructions Indication:Encounter for Medicare annual wellness exam Start:07-Jun-2015 Instruction Type:Provider Instructions for Treatment How to access health informa tion online Indication:Benign essential hypertension Start:17-May-2015 Instruction Type:Patient Education How to access health informa tion online - Detail Indication:Benign essential hypertension Start:17-May-2015 Instruction Type:Patient Education Name Dates Details How to access health informa tion online Indication:BMI 22.0-22.9, adult Start:20-Aug-2019 Instruction Type:Patient Education How to access health informa tion online - Detail Indication:BMI 22.0-22.9, adult Start:20-Aug-2019 Instruction Type:Patient Education Patient Instructions Indication:BMI 22.0-22.9, adult Start:20-Aug-2019 Instruction Type:Provider Instructions for Treatment How to access health informa tion online Indication:Benign essential hypertension Start:17-Jul-2018 Instruction Type:Patient Education How to access health informa tion online - Detail Indication:Benign essential hypertension Start:17-Jul-2018 Instruction Type:Patient Education Patient Instructions Indication:Benign essential hypertension Start:17-Jul-2018 Instruction Type:Provider Instructions for Treatment How to access health informa tion online Indication:Non-smoker Start:04-Jun-2017 Instruction Type:Patient Education How to access health informa tion online - Detail Indication:Non-smoker Start:04-Jun-2017 Instruction Type:Patient Education Patient Instructions Indication:Non-smoker Start:04-Jun-2017 Instruction Type:Provider Instructions for Treatment Patient Instructions Indication:Benign essential hypertension Start:07-Jun-2016 Instruction Type:Provider Instructions for Treatment How to access health informa tion online Indication:Encounter for Medicare annual wellness exam Start:07-Jun-2015 Instruction Type:Patient Education How to access health informa tion online - Detail Indication:Encounter for Medicare annual wellness exam Start:07-Jun-2015 Instruction Type:Patient Education Patient Instructions Indication:Encounter for Medicare annual wellness exam Start:07-Jun-2015 Instruction Type:Provider Instructions for Treatment How to access health informa tion online Indication:Benign essential hypertension Start:17-May-2015 Instruction Type:Patient Education How to access health informa tion online - Detail Indication:Benign essential hypertension Start:17-May-2015 Instruction Type:Patient Education Name Dates Details How to access health informa tion online Indication:BMI 22.0-22.9, adult Start:20-Aug-2019 Instruction Type:Patient Education How to access health informa tion online - Detail Indication:BMI 22.0-22.9, adult Start:20-Aug-2019 Instruction Type:Patient Education Patient Instructions Indication:BMI 22.0-22.9, adult Start:20-Aug-2019 Instruction Type:Provider Instructions for Treatment How to access health informa tion online Indication:Benign essential hypertension Start:17-Jul-2018 Instruction Type:Patient Education How to access health informa tion online - Detail Indication:Benign essential hypertension Start:17-Jul-2018 Instruction Type:Patient Education Patient Instructions Indication:Benign essential hypertension Start:17-Jul-2018 Instruction Type:Provider Instructions for Treatment How to access health informa tion online Indication:Non-smoker Start:04-Jun-2017 Instruction Type:Patient Education How to access health informa tion online - Detail Indication:Non-smoker Start:04-Jun-2017 Instruction Type:Patient Education Patient Instructions Indication:Non-smoker Start:04-Jun-2017 Instruction Type:Provider Instructions for Treatment Patient Instructions Indication:Benign essential hypertension Start:07-Jun-2016 Instruction Type:Provider Instructions for Treatment How to access health informa tion online Indication:Encounter for Medicare annual wellness exam Start:07-Jun-2015 Instruction Type:Patient Education How to access health informa tion online - Detail Indication:Encounter for Medicare annual wellness exam Start:07-Jun-2015 Instruction Type:Patient Education Patient Instructions Indication:Encounter for Medicare annual wellness exam Start:07-Jun-2015 Instruction Type:Provider Instructions for Treatment How to access health informa tion online Indication:Benign essential hypertension Start:17-May-2015 Instruction Type:Patient Education How to access health informa tion online - Detail Indication:Benign essential hypertension Start:17-May-2015 Instruction Type:Patient Education Name Dates Details How to access health informa tion online Indication:BMI 22.0-22.9, adult Start:20-Aug-2019 Instruction Type:Patient Education How to access health informa tion online - Detail Indication:BMI 22.0-22.9, adult Start:20-Aug-2019 Instruction Type:Patient Education Patient Instructions Indication:BMI 22.0-22.9, adult Start:20-Aug-2019 Instruction Type:Provider Instructions for Treatment How to access health informa tion online Indication:Benign essential hypertension Start:17-Jul-2018 Instruction Type:Patient Education How to access health informa tion online - Detail Indication:Benign essential hypertension Start:17-Jul-2018 Instruction Type:Patient Education Patient Instructions Indication:Benign essential hypertension Start:17-Jul-2018 Instruction Type:Provider Instructions for Treatment How to access health informa tion online Indication:Non-smoker Start:04-Jun-2017 Instruction Type:Patient Education How to access health informa tion online - Detail Indication:Non-smoker Start:04-Jun-2017 Instruction Type:Patient Education Patient Instructions Indication:Non-smoker Start:04-Jun-2017 Instruction Type:Provider Instructions for Treatment Patient Instructions Indication:Benign essential hypertension Start:07-Jun-2016 Instruction Type:Provider Instructions for Treatment How to access health informa tion online Indication:Encounter for Medicare annual wellness exam Start:07-Jun-2015 Instruction Type:Patient Education How to access health informa tion online - Detail Indication:Encounter for Medicare annual wellness exam Start:07-Jun-2015 Instruction Type:Patient Education Patient Instructions Indication:Encounter for Medicare annual wellness exam Start:07-Jun-2015 Instruction Type:Provider Instructions for Treatment How to access health informa tion online Indication:Benign essential hypertension Start:17-May-2015 Instruction Type:Patient Education How to access health informa tion online - Detail Indication:Benign essential hypertension Start:17-May-2015 Instruction Type:Patient Education Name Dates Details How to access health informa tion online Indication:BMI 22.0-22.9, adult Start:20-Aug-2019 Instruction Type:Patient Education How to access health informa tion online - Detail Indication:BMI 22.0-22.9, adult Start:20-Aug-2019 Instruction Type:Patient Education Patient Instructions Indication:BMI 22.0-22.9, adult Start:20-Aug-2019 Instruction Type:Provider Instructions for Treatment How to access health informa tion online Indication:Benign essential hypertension Start:17-Jul-2018 Instruction Type:Patient Education How to access health informa tion online - Detail Indication:Benign essential hypertension Start:17-Jul-2018 Instruction Type:Patient Education Patient Instructions Indication:Benign essential hypertension Start:17-Jul-2018 Instruction Type:Provider Instructions for Treatment How to access health informa tion online Indication:Non-smoker Start:04-Jun-2017 Instruction Type:Patient Education How to access health informa tion online - Detail Indication:Non-smoker Start:04-Jun-2017 Instruction Type:Patient Education Patient Instructions Indication:Non-smoker Start:04-Jun-2017 Instruction Type:Provider Instructions for Treatment Patient Instructions Indication:Benign essential hypertension Start:07-Jun-2016 Instruction Type:Provider Instructions for Treatment How to access health informa tion online Indication:Encounter for Medicare annual wellness exam Start:07-Jun-2015 Instruction Type:Patient Education How to access health informa tion online - Detail Indication:Encounter for Medicare annual wellness exam Start:07-Jun-2015 Instruction Type:Patient Education Patient Instructions Indication:Encounter for Medicare annual wellness exam Start:07-Jun-2015 Instruction Type:Provider Instructions for Treatment How to access health informa tion online Indication:Benign essential hypertension Start:17-May-2015 Instruction Type:Patient Education How to access health informa tion online - Detail Indication:Benign essential hypertension Start:17-May-2015 Instruction Type:Patient Education Name Dates Details How to Access Health Informa tion Online using Patient Portal and [employer] Indication:Non-smoker Start:18-Oct-2020 Instruction Type:Patient Education Patient Instructions Indication:Non-smoker Start:18-Oct-2020 Instruction Type:Provider Instructions for Treatment How to access health informa tion online Indication:BMI 22.0-22.9, adult Start:20-Aug-2019 Instruction Type:Patient Education How to access health informa tion online - Detail Indication:BMI 22.0-22.9, adult Start:20-Aug-2019 Instruction Type:Patient Education Patient Instructions Indication:BMI 22.0-22.9, adult Start:20-Aug-2019 Instruction Type:Provider Instructions for Treatment How to access health informa tion online Indication:Benign essential hypertension Start:17-Jul-2018 Instruction Type:Patient Education How to access health informa tion online - Detail Indication:Benign essential hypertension Start:17-Jul-2018 Instruction Type:Patient Education Patient Instructions Indication:Benign essential hypertension Start:17-Jul-2018 Instruction Type:Provider Instructions for Treatment How to access health informa tion online Indication:Non-smoker Start:04-Jun-2017 Instruction Type:Patient Education How to access health informa tion online - Detail Indication:Non-smoker Start:04-Jun-2017 Instruction Type:Patient Education Patient Instructions Indication:Non-smoker Start:04-Jun-2017 Instruction Type:Provider Instructions for Treatment Patient Instructions Indication:Benign essential hypertension Start:07-Jun-2016 Instruction Type:Provider Instructions for Treatment How to access health informa tion online Indication:Encounter for Medicare annual wellness exam Start:07-Jun-2015 Instruction Type:Patient Education How to access health informa tion online - Detail Indication:Encounter for Medicare annual wellness exam Start:07-Jun-2015 Instruction Type:Patient Education Patient Instructions Indication:Encounter for Medicare annual wellness exam Start:07-Jun-2015 Instruction Type:Provider Instructions for Treatment How to access health informa tion online Indication:Benign essential hypertension Start:17-May-2015 Instruction Type:Patient Education How to access health informa tion online - Detail Indication:Benign essential hypertension Start:17-May-2015 Instruction Type:Patient Education Advance Directives No Advanced Directives Records Found Name Dates Details Immunization Registry [place] - Effective on 10/25/2020. Expiration date unspecified Effective:25-Oct-2020 Name Dates Details Immunization Registry [place] - Effective on 10/25/2020. Expiration date unspecified Effective:25-Oct-2020 Name Dates Details Immunization Registry [place] - Effective on 10/25/2020. Expiration date unspecified Effective:25-Oct-2020 Name Dates Details Immunization Registry [place] - Effective on 10/25/2020. Expiration date unspecified Effective:25-Oct-2020 Name Dates Details Immunization Registry [place] - Effective on 10/25/2020. Expiration date unspecified Effective:25-Oct-2020 Name Dates Details Immunization Registry [place] - Effective on 10/25/2020. Expiration date unspecified Effective:25-Oct-2020 Advance Directive Response Recorded Date/ Time Advance Directives Yes November 07, 2016 1:40pm Living Will No November 19 1:12pm Power of Front Office Clerk No November 19, 2021 1:12pm Name Dates Details Immunization Registry [place] - Effective on 10/25/2020. Expiration date unspecified Effective:25-Oct-2020 Advance Directive Response Recorded Date/ Time Advance Directives Yes November 07, 2016 12:40pm Living Will No November 19 12:12pm Power of Front Office Clerk No November 19, 2021 12:12pm Name Dates Details Immunization Registry [place] - Effective on 10/25/2020. Expiration date unspecified Effective:25-Oct-2020 Advance Directive Response Recorded Date/ Time Living Will No November 19 1:12pm Power of Front Office Clerk No November 19, 2021 1:12pm Advance Directives Yes November 07, 2016 1:40pm Advance Directive Response Recorded Date/ Time Advance Directives Yes November 07, 2016 1:40pm Chief Complaint and Reason for Visit Chief Complaint ORENCIA ORENCIA SYNCOPE ORENCIA ORENCIA Chief Complaint ORENCIA SYNCOPE ORENCIA ORENCIA ORENCIA Chief Complaint SYNCOPE ORENCIA ORENCIA ORENCIA ORENCIA Chief Complaint ORENCIA ORENCIA ORENCIA ANTIGEN COVID FOR TRAVEL ORENCIA Reason for Visit Encounter for screen ing for other viral diseases Chief Complaint ORENCIA ORENCIA ANTIGEN COVID FOR TRAVEL ORENCIA ORENCIA Reason for Visit Encounter for screen ing for other viral diseases Chief Complaint ORENCIA ANTIGEN COVID FOR TRAVEL ORENCIA ORENCIA ORENCIA Reason for Visit Encounter for screen ing for other viral diseases Chief Complaint ANTIGEN COVID FOR TR MAX ORENCIA ORENCIA ORENCIA ORENCIA Reason for Visit Encounter for screen ing for other viral diseases Chief Complaint ORENCIA ORENCIA ORENCIA ORENCIA Chief Complaint ORENCIA ORENCIA ORENCIA ORENCIA ORENCIA Chief Complaint ORENCIA ORENCIA ORENCIA ORENCIA LAB AND RIGHT HIP AND PELVIS XRAY ORENCIA Chief Complaint ORENCIA ORENCIA LAB AND RIGHT HIP AND PELVIS XRAY ORENCIA ORENCIA Chief Complaint LAB AND RIGHT HIP AN D PELVIS XRAY ORENCIA ORENCIA ORENCIA ORENCIA Chief Complaint ORENCIA ORENCIA Chief Complaint Admit Date [facility] September 02, 2024 12:23pm O[facility] September 30, 2024 12:21pm [facility] October 28, 2024 1 2:24pm O[facility] November 25, 2024 12:22pm Chief Complaint Admit Date [facility] September 02, 2024 12:23pm O[facility] September 30, 2024 12:21pm O[facility] October 28, 2024 1 2:24pm O[facility] November 25, 2024 12:22pm O[facility] December 23, 2024 12: 33pm Chief Complaint Admit Date Orencia September 30, 2024 12:21pm O[facility] October 28, 2024 1 2:24pm O[facility] November 25, 2024 12:22pm O[facility] December 23, 2024 12: 33pm O[facility] January 20, 2025 12: 19pm Chief Complaint Admit Date Orencia October 28, 2024 1 2:24pm O[facility] November 25, 2024 12:22pm O[facility] December 23, 2024 12: 33pm O[facility] January 20, 2025 12: 19pm O[facility] February 17, 2025 12:17p m Chief Complaint Admit Date O[facility]cia November 25, 2024 12:22pm O[facility] December 23, 2024 12: 33pm O[facility] January 20, 2025 12: 19pm Orencia February 17, 2025 12:17p m [facility] March 17, 2025 11:42 am Chief Complaint Admit Date O[facility]cia December 23, 2024 12: 33pm O[facility] January 20, 2025 12: 19pm O[facility]cia February 17, 2025 12:17p m [facility] March 17, 2025 11:42 am O[facility] April 14, 2025 11:48 am Chief Complaint Admit Date Orencia January 20, 2025 12: 19pm O[facility]cia February 17, 2025 12:17p m O[facility] March 17, 2025 11:42 am Orencia April 14, 2025 11:48 am Orencia May 18, 2025 12: 27pm Chief Complaint Admit Date Orencia February 17, 2025 12:17p m [facility] March 17, 2025 11:42 am O[facility]cia April 14, 2025 11:48 am Orencia May 18, 2025 12: 27pm Chief Complaint Admit Date Orencia February 17, 2025 12:17p m O[facility] March 17, 2025 11:42 am Orencia April 14, 2025 11:48 am Orencia May 18, 2025 12: 27pm O[facility]cia June 15, 2025 12:20pm Chief Complaint Admit Date Orencia April 14, 2025 11:48 am Orencia May 18, 2025 12: 27pm Orencia June 15, 2025 12:20pm O[facility]cia July 15, 2025 12 :21pm Summary Purpose Additional Source Comments Goals (unrecognized section and content) Goals may be documented in a n alternate sectionGoals may be documented in an alternate sectionGoals may be documented in an alternate sectionGoals may be documented in an alternate sectionGoals may be documented in an alternate sectionGoals may be documented in an alternate sectionGoals may be documented in an alternate sectionGoals may be documented in an alternate sectionGoals may be documented in an alternate sectionGoals may be documented in an alternate sectionGoals may be documented in an alternate sectionGoals may be documented in an alternate sectionGoals may be documented in an alternate sectionGoals may be documented in an alternate sectionGoals may be documented in an alternate sectionGoals may be documented in an alternate sectionGoals may be documented in an alternate sectionGoals may be documented in an alternate section No data available for this sectionGoals may be documented in an alternate section No data available for this sectionGoals may be documented in an alternate sectionGoals may be documented in an alternate sectionGoals may be documented in an alternate sectionGoals may be documented in an alternate sectionGoals may be documented in an alternate sectionGoals may be documented in an alternate sectionGoals may be documented in an alternate sectionGoals may be documented in an alternate sectionGoals may be documented in an alternate sectionGoals may be documented in an alternate sectionGoals may be documented in an alternate sectionGoals may be documented in an alternate sectionGoals may be documented in an alternate section Care Teams (unrecognized sec tion and content) Team Status: Active Member Role Status Dates Dr. Sade Matthews DO Family Provider Active Dr. Sade Matthews DO Primary Care Provider Active Team Status: Inactive Member Role Status Dates Dr. Sade Matthews DO Primary Care Provider Active Dr. Danette Brooks MD Attending Provider, Referring Provider Active Team Status: Active Member Role Status Dates Dr. Sade Matthews DO Family Provider Active Dr. Allen Morin MD Primary Care Provider Active Team Status: Inactive Member Role Status Dates Dr. Danette Brooks MD Attending Provider, Referring Provider Active Dr. Allen Morin MD Primary Care Provider Active Team Status: Inactive Member Role Status Dates Dr. Allen Morin MD Primary Care Provider Active Dr. Danette Brooks MD Attending Provider, Referring Provider Active Team Status: Inactive Member Role Status Dates Dr. Allen Morin MD Primary Care Provider, Attending Provider Active Team Status: Inactive Member Role Status Dates Dr. Allen Morin MD Primary Care Provider Active Jagdeep ARZOLA PA-C Attending Provider Active Team Status: Active Member Role Status Dates Dr. Allen Morin MD Primary Care Provider Active Team Status: Inactive Member Role Status Dates Dr. Allen Morin MD Primary Care Provider Active Start: September 02, 2024 End: September 02, 2024 Dr. Danette Brooks MD Attending Provider Active Start: September 02, 2024 End: September 02, 2024 Dr. Danette Brooks MD Referring Provider Active Start: September 02, 2024 End: September 02, 2024 Team Status: Inactive Member Role Status Dates Dr. Allen Morin MD Primary Care Provider Active Start: September 30, 2024 End: September 30, 2024 Dr. Danette Brooks MD Attending Provider Active Start: September 30, 2024 End: September 30, 2024 Dr. Danette Brooks MD Referring Provider Active Start: September 30, 2024 End: September 30, 2024 Team Status: Inactive Member Role Status Dates Dr. Allen Morin MD Primary Care Provider Active Start: October 28, 2024 End: October 28, 2024 Dr. Danette Brooks MD Attending Provider Active Start: October 28, 2024 End: October 28, 2024 Dr. Danette Brooks MD Referring Provider Active Start: October 28, 2024 End: October 28, 2024 Team Status: Inactive Member Role Status Dates Dr. Allen Morin MD Primary Care Provider Active Start: November 25, 2024 End: November 25, 2024 Dr. Danette Brooks MD Attending Provider Active Start: November 25, 2024 End: November 25, 2024 Dr. Danette Brooks MD Referring Provider Active Start: November 25, 2024 End: November 25, 2024 Team Status: Inactive Member Role Status Dates Dr. Allen Morin MD Primary Care Provider Active Start: December 08, 2024 End: December 08, 2024 Dr. Allen Morin MD Attending Provider Active Start: December 08, 2024 End: December 08, 2024 Team Status: Inactive Member Role Status Dates Dr. Allen Morin MD Primary Care Provider Active Start: December 23, 2024 End: December 23, 2024 Dr. Danette Brooks MD Attending Provider Active Start: December 23, 2024 End: December 23, 2024 Dr. Danette Brooks MD Referring Provider Active Start: December 23, 2024 End: December 23, 2024 Team Status: Inactive Member Role Status Dates Dr. Allen Morin MD Primary Care Provider Active Start: January 20, 2025 End: January 20, 2025 Dr. Danette Brooks MD Attending Provider Active Start: January 20, 2025 End: January 20, 2025 Dr. Danette Brooks MD Referring Provider Active Start: January 20, 2025 End: January 20, 2025 Team Status: Inactive Member Role Status Dates Dr. Allen Morin MD Primary Care Provider Active Start: February 17, 2025 End: February 17, 2025 Dr. Danette Brooks MD Attending Provider Active Start: February 17, 2025 End: February 17, 2025 Dr. Danette Brooks MD Referring Provider Active Start: February 17, 2025 End: February 17, 2025 Team Status: Inactive Member Role Status Dates Dr. Allen Morin MD Primary Care Provider Active Start: March 17, 2025 End: March 17, 2025 Dr. Danette Brooks MD Attending Provider Active Start: March 17, 2025 End: March 17, 2025 Dr. Danette Brooks MD Referring Provider Active Start: March 17, 2025 End: March 17, 2025 Team Status: Active Member Role/Relationship Status Dates Dr. Allen Morin MD Primary Care Provider Active Team Status: Inactive Member Role/Relationship Status Dates Dr. Allen Morin MD Primary Care Provider Active Start: December 23, 2024 End: December 23, 2024 Dr. Danette Brooks MD Attending Provider Active Start: December 23, 2024 End: December 23, 2024 Dr. Danette Brooks MD Referring Provider Active Start: December 23, 2024 End: December 23, 2024 Team Status: Inactive Member Role/Relationship Status Dates Dr. Allen Morin MD Primary Care Provider Active Start: January 20, 2025 End: January 20, 2025 Dr. Danette Brooks MD Attending Provider Active Start: January 20, 2025 End: January 20, 2025 Dr. Danette Brooks MD Referring Provider Active Start: January 20, 2025 End: January 20, 2025 Team Status: Inactive Member Role/Relationship Status Dates Dr. Allen Morin MD Primary Care Provider Active Start: February 17, 2025 End: February 17, 2025 Dr. Danette Brooks MD Attending Provider Active Start: February 17, 2025 End: February 17, 2025 Dr. Danette Brooks MD Referring Provider Active Start: February 17, 2025 End: February 17, 2025 Team Status: Inactive Member Role/Relationship Status Dates Dr. Allen Morin MD Primary Care Provider Active Start: March 17, 2025 End: March 17, 2025 Dr. Danette Brooks MD Attending Provider Active Start: March 17, 2025 End: March 17, 2025 Dr. Danette Brooks MD Referring Provider Active Start: March 17, 2025 End: March 17, 2025 Team Status: Inactive Member Role/Relationship Status Dates Dr. Allen Morin MD Primary Care Provider Active Start: April 14, 2025 End: April 14, 2025 Dr. Danette Brooks MD Attending Provider Active Start: April 14, 2025 End: April 14, 2025 Dr. Danette Brooks MD Referring Provider Active Start: April 14, 2025 End: April 14, 2025 Team Status: Inactive Member Role/Relationship Status Dates Dr. Allen Morin MD Primary Care Provider Active Start: January 20, 2025 End: January 20, 2025 Dr. Danette Brooks MD Attending Provider Active Start: January 20, 2025 End: January 20, 2025 Dr. Danette Brooks MD Referring Provider Active Start: January 20, 2025 End: January 20, 2025 Team Status: Inactive Member Role/Relationship Status Dates Dr. Allen Morin MD Primary Care Provider Active Start: February 17, 2025 End: February 17, 2025 Dr. Danette Brooks MD Attending Provider Active Start: February 17, 2025 End: February 17, 2025 Dr. Danette Brooks MD Referring Provider Active Start: February 17, 2025 End: February 17, 2025 Team Status: Inactive Member Role/Relationship Status Dates Dr. Allen Morin MD Primary Care Provider Active Start: March 17, 2025 End: March 17, 2025 Dr. Danette Brooks MD Attending Provider Active Start: March 17, 2025 End: March 17, 2025 Dr. Danette Brooks MD Referring Provider Active Start: March 17, 2025 End: March 17, 2025 Team Status: Inactive Member Role/Relationship Status Dates Dr. Allen Morin MD Primary Care Provider Active Start: April 14, 2025 End: April 14, 2025 Dr. Danette Brooks MD Attending Provider Active Start: April 14, 2025 End: April 14, 2025 Dr. Danette Brooks MD Referring Provider Active Start: April 14, 2025 End: April 14, 2025 Team Status: Active Member Role/Relationship Status Dates Dr. Allen Morin MD Primary Care Provider Active Start: May 13, 2025 Dr. Danette Brooks MD Attending Provider Active Start: May 13, 2025 Dr. Danette Brooks MD Referring Provider Active Start: May 13, 2025 Team Status: Inactive Member Role/Relationship Status Dates Dr. Allen Morin MD Primary Care Provider Active Start: May 18, 2025 End: May 18, 2025 Dr. Danette Brooks MD Attending Provider Active Start: May 18, 2025 End: May 18, 2025 Dr. Danette Brooks MD Referring Provider Active Start: May 18, 2025 End: May 18, 2025 Team Status: Inactive Member Role/Relationship Status Dates Dr. Allen Morin MD Primary Care Provider Active Start: February 17, 2025 End: February 17, 2025 Dr. Danette Brooks MD Attending Provider Active Start: February 17, 2025 End: February 17, 2025 Dr. Danette Brooks MD Referring Provider Active Start: February 17, 2025 End: February 17, 2025 Team Status: Inactive Member Role/Relationship Status Dates Dr. Allen Morin MD Primary Care Provider Active Start: March 17, 2025 End: March 17, 2025 Dr. Danette Brooks MD Attending Provider Active Start: March 17, 2025 End: March 17, 2025 Dr. Danette Brooks MD Referring Provider Active Start: March 17, 2025 End: March 17, 2025 Team Status: Inactive Member Role/Relationship Status Dates Dr. Allen Morin MD Primary Care Provider Active Start: April 14, 2025 End: April 14, 2025 Dr. Danette Brooks MD Attending Provider Active Start: April 14, 2025 End: April 14, 2025 Dr. Danette Brooks MD Referring Provider Active Start: April 14, 2025 End: April 14, 2025 Team Status: Inactive Member Role/Relationship Status Dates Dr. Allen Morin MD Primary Care Provider Active Start: May 13, 2025 End: May 13, 2025 Dr. Danette Brooks MD Attending Provider Active Start: May 13, 2025 End: May 13, 2025 Dr. Danette Brooks MD Referring Provider Active Start: May 13, 2025 End: May 13, 2025 Team Status: Inactive Member Role/Relationship Status Dates Dr. Allen Morin MD Primary Care Provider Active Start: May 18, 2025 End: May 18, 2025 Dr. Danette Brooks MD Attending Provider Active Start: May 18, 2025 End: May 18, 2025 Dr. Danette Brooks MD Referring Provider Active Start: May 18, 2025 End: May 18, 2025 Team Status: Inactive Member Role/Relationship Status Dates Dr. Allen Morin MD Primary Care Provider Active Start: June 15, 2025 End: June 15, 2025 Dr. Danette Brooks MD Attending Provider Active Start: June 15, 2025 End: June 15, 2025 Dr. Danette Brooks MD Referring Provider Active Start: June 15, 2025 End: June 15, 2025 Team Status: Active Member Role/Relationship Status Dates Dr. Allen Morin MD Primary care physician Active Team Status: Inactive Member Role/Relationship Status Dates Dr. Allen Morin MD Primary care physician Active Start: April 14, 2025 End: April 14, 2025 Dr. Danette Brooks MD Attending physician Active Start: April 14, 2025 End: April 14, 2025 Dr. Danette Boroks MD Referring Provider Active Start: April 14, 2025 End: April 14, 2025 Team Status: Inactive Member Role/Relationship Status Dates Dr. Allen Morin MD Primary care physician Active Start: May 13, 2025 End: May 13, 2025 Dr. Danette Brooks MD Attending physician Active Start: May 13, 2025 End: May 13, 2025 Dr. Danette Brooks MD Referring Provider Active Start: May 13, 2025 End: May 13, 2025 Team Status: Inactive Member Role/Relationship Status Dates Dr. Allen Morin MD Primary care physician Active Start: May 18, 2025 End: May 18, 2025 Dr. Danette Brooks MD Attending physician Active Start: May 18, 2025 End: May 18, 2025 Dr. Danette Brooks MD Referring Provider Active Start: May 18, 2025 End: May 18, 2025 Team Status: Inactive Member Role/Relationship Status Dates Dr. Allen Morin MD Primary care physician Active Start: June 15, 2025 End: June 15, 2025 Dr. Danette Brooks MD Attending physician Active Start: June 15, 2025 End: June 15, 2025 Dr. Danette Brooks MD Referring Provider Active Start: June 15, 2025 End: June 15, 2025 Team Status: Inactive Member Role/Relationship Status Dates Dr. Allen Morin MD Primary care physician Active Start: July 15, 2025 End: July 15, 2025 Dr. Danette Brooks MD Attending physician Active Start: July 15, 2025 End: July 15, 2025 Dr. Danette Brooks MD Referring Provider Active Start: July 15, 2025 End: July 15, 2025 INFORMATION SOURCE (unrecogn ized section and content) DATE CREATED AUTHOR 01/10/2024 [facility] ([place]) DATE CREATED AUTHOR AUTHOR'S ORGANIZ ATION 08/19/2025 [facility] FOR RECORDS PERTAINING TO PATIENTS WHO ARE OR HAVE BEEN ENROLLED IN A CHEMICAL DEPENDENCY/SUBSTANCEABUSE PROGRAM, SOME INFORMATION MAY BE OMITTED. This clinical summary was aggregated from multiple sources. Caution should be exercised in using it in the provision of clinical care. This summary normalizes information from multiple sources, and as a consequence, information in this document may materially change the coding, format and clinical context of patient data. In addition, data may be omitted in some cases. CLINICAL DECISIONS SHOULD BE BASED ON THE PRIMARY CLINICAL RECORDS. [employer] [facility] provides no warranty or guarantee of the accuracy or completeness of information in this document.
== END | disposition home or self-care (01) ==
LOC: LABSPEC 10:04
PROVIDERS: PCP Family Medicine Geriatric Medicine; Referring Provider Internal Medicine Rheumatology; Visit Provider Internal Medicine Rheumatology
DX: M05.70 Rheumatoid arthritis with rheumatoid factor of unspecified site without organ or systems involvement (principal); Z79.899 Other long term (current) drug therapy

== ENCOUNTER 2025-09-16 09:27 | Outpatient (CLI) | payer MEDICARE, OTHER, SELFPAY ==
[2025-09-16 09:38] VITALS: BP 133/62; PULSE 67; RESP 14; TEMP 35.7; O2SAT 100; BMI 23.0
[2025-09-16] MEDS: 0.9% NaCl Peripheral Flush Adult IV (09:42)
[2025-09-16] MEDS: 0.9% NaCl IVPB Med Flush (100mL) 15 ML IV (09:45)
[2025-09-16] MEDS: NORMAL SALINE 0.9% IV (10:04)
[2025-09-16] MEDS: ABATACEPT IV (10:04)
[2025-09-16 10:48] VITALS: BP 136/58; PULSE 57; RESP 16
== END 2025-09-16 23:59 | disposition home or self-care (01) ==
LOC: MEDOUTP 09:28
PROVIDERS: PCP Family Medicine Geriatric Medicine; Referring Provider Internal Medicine Rheumatology; Visit Provider Internal Medicine Rheumatology
DX: M06.9 Rheumatoid arthritis, unspecified (principal)
CPT/HCPCS: 96365; A4216; J0129